=== PATIENT | female | born 1965 | race Caucasian/White ===

== ENCOUNTER 2022-09-30 11:55 | Outpatient (OUT) | payer OTHER, SELFPAY ==
[2022-09-30 12:33] LABS: Basophils Absolute Auto 0.1 10^3/uL (0.0-0.1); Basophils Percent Auto 0.5 % (0.2-2.0); Eosinophils Absolute Auto 0.1 10^3/uL (0.0-0.7); Eosinophils Percent Auto 1.3 % (0.9-7.0); Hematocrit 40.3 % (36.0-48.0); Hemoglobin 12.7 g/dL (12.0-16.0); Immature Granulocytes Abs Auto 0.04 10^3/uL (0.00-0.03); Immature Granulocytes Pct Auto 0.4 % (0.0-0.5); Lymphocytes Absolute Auto 2.3 10^3/uL (1.2-3.8); Lymphocytes Percent Auto 24.4 % (20.5-60.0); Mean Corpuscular HGB Conc 31.5 g/dL (29.9-35.2); Mean Corpuscular Hemoglobin 28.3 pg (26.7-34.0); Mean Corpuscular Volume 89.8 fL (81.0-99.0); Mean Platelet Volume 12.3 fL (9.5-13.5); Monocytes Absolute Auto 1.2 10^3/uL (0.3-0.8); Monocytes Percent Auto 12.7 % (1.7-12.0); Neutrophils Absolute Auto 5.6 10^3/uL (1.4-6.5); Neutrophils Percent Auto 60.7 % (43.0-75.0); Platelet Count 231 10^3/uL (150-450); Red Blood Count 4.49 10^6/uL (4.20-5.40); Red Cell Distribution Width 13.9 % (11.0-15.0); White Blood Count 9.3 10^3/uL (4.0-11.0)
[2022-09-30 12:47] LABS: Erythrocyte Sedimentation Rate 40 mm/hr (<=30)
[2022-09-30 13:15] LABS: Alanine Aminotransferase 15 U/L (14-59); Albumin Level 3.9 g/dL (3.4-5.0); Alkaline Phosphatase 80 U/L (46-116); Anion Gap 9.3; Aspartate Amino Transferase 18 U/L (15-37); BUN Creatinine Ratio 16.5; Bilirubin Total 0.4 mg/dL (0.2-1.0); Calcium 9.1 mg/dL (8.5-10.1); Carbon Dioxide 28.6 mmol/L (21.0-32.0); Chloride 102 mmol/L (98-107); Estimated GFR (African America >60 (>=60); Estimated GFR (Non-African Ame >60 (>=60); Globulin 4.1 g/dL; Glucose 93 mg/dL (74-106); Potassium 3.9 mmol/L (3.5-5.1); Sodium 136 mmol/L (136-145)
[2022-09-30 14:04] LABS: Bilirubin Urine NEGATIVE (NEGATIVE); Blood Urine NEGATIVE (NEGATIVE); Clarity Urine CLEAR (CLEAR); Color Urine LT. YELLOW (YELLOW); Glucose Urine UA NEGATIVE (NEGATIVE); Ketones Urine NEGATIVE (NEGATIVE); Leukocyte Esterase Urine NEGATIVE (NEGATIVE); Nitrite Urine NEGATIVE (NEGATIVE); Protein Urine NEGATIVE (NEG/TRACE); Specific Gravity Urine 1.025 (1.005-1.025); Urobilinogen Urine 0.2 EU/dL (0.2-1.0)
[2022-09-30 14:12] LABS: Bacteria Urine NONE SEEN #/HPF (NONE SEEN); Mucus Urine NONE SEEN (NONE SEEN); RBC Urine NONE SEEN #/HPF (0-2); Squamous Epithelial Cell Urine RARE #/LPF (NONE/RARE); WBC Urine NONE SEEN #/HPF (NONE SEEN)
[2022-10-01 04:07] LABS: Complement C3, Serum 120 mg/dL (82-167); Complement C4, Serum 19 mg/dL (12-38)
[2022-10-02 15:08] LABS: Complement, Total (CH50) >60 U/mL (>41)
== END 2022-09-30 11:56 | disposition home or self-care (01) ==
LOC: LAB 11:56
DX: M34.0 Progressive systemic sclerosis (principal); M81.0 Age-related osteoporosis without current pathological fracture; I73.00 Raynaud's syndrome without gangrene; Z79.899 Other long term (current) drug therapy
CPT/HCPCS: 36415; 80053; 81001; 85025; 85652

== ENCOUNTER 2022-12-05 12:49 | Outpatient (OUT) | payer OTHER, SELFPAY ==
--- NOTE | 2022-12-05 12:52 | MM_ITS ---
Patient: SIERRA ALBERTS Exam Date: 12/05/2022 : 1965 Gender:F Ordering : JAD Reed . Admission #: [id number] Family : Non-Staff Physician Order #: [id number] CLICK HERE TO VIEW EXAM RADIOLOGY REPORT PROCEDURE: MM TOMOSYNTHESIS SCREENING BI COMPARISON: MG MAMM SCREEN 3D PATRICA CAD, 11/13/2020. MG MAMM SCREEN 3D PATRICA CAD, 11/14/2021. INDICATIONS: Screening Calculator Name NCI Breast Cancer Risk Assessment Tool 5 Year Breast Cancer Risk 1.30% Lifetime Breast Cancer Risk 7.80% Personal Breast Cancer No Personal Ovarian Cancer No Treatments None Family Cancers Aunt-maternal with breast cancer at age ~60; Aunt-maternal with breast cancer at age ~60. LOCATION: [facility] BREAST COMPOSITION: Extremely dense, which lowers the sensitivity of mammography. FINDINGS: DIAGNOSTIC CATEGORY 1--NEGATIVE. NO CHANGE FROM COMPARISON ASSESSMENT. Scattered benign-appearing calcifications are present. Scattered benign-appearing nodules are present. RIGHT BREAST: No significant suspicious finding. LEFT BREAST: No significant suspicious finding. RECOMMENDATIONS: ROUTINE MAMMOGRAM AND CLINICAL EVALUATION IN 12 MONTHS. PLEASE NOTE: A NORMAL MAMMOGRAM DOES NOT EXCLUDE THE POSSIBILITY OF BREAST CANCER. A CLINICALLY SUSPICIOUS PALPABLE LUMP SHOULD BE BIOPSIED. Dictated by: Erik Chong MD on 12/05/2022 at 13:21 Approved by: Erik Chong MD on 12/05/2022 at 13:39
== END 2022-12-05 12:50 | disposition home or self-care (01) ==
LOC: MAMMO 12:49
PROVIDERS: Visit Provider Physician Assistant
DX: Z12.31 Encounter for screening mammogram for malignant neoplasm of breast (principal); Z80.3 Family history of malignant neoplasm of breast
CPT/HCPCS: 77063; 77067

== ENCOUNTER 2022-12-22 08:42 | Outpatient (OUT) | payer OTHER, SELFPAY ==
[2022-12-22 09:07] LABS: Basophils Absolute Auto 0.1 10^3/uL (0.0-0.1); Eosinophils Absolute Auto 0.2 10^3/uL (0.0-0.7); Eosinophils Percent Auto 2.1 % (0.9-7.0); Hematocrit 42.3 % (36.0-48.0); Hemoglobin 13.6 g/dL (12.0-16.0); Immature Granulocytes Abs Auto 0.02 10^3/uL (0.00-0.03); Immature Granulocytes Pct Auto 0.3 % (0.0-0.5); Lymphocytes Absolute Auto 2.5 10^3/uL (1.2-3.8); Lymphocytes Percent Auto 32.1 % (20.5-60.0); Mean Corpuscular HGB Conc 32.2 g/dL (29.9-35.2); Mean Corpuscular Hemoglobin 29.2 pg (26.7-34.0); Mean Corpuscular Volume 90.8 fL (81.0-99.0); Mean Platelet Volume 12.5 fL (9.5-13.5); Monocytes Absolute Auto 1.1 10^3/uL (0.3-0.8); Monocytes Percent Auto 14.2 % (1.7-12.0); Neutrophils Absolute Auto 3.9 10^3/uL (1.4-6.5); Neutrophils Percent Auto 50.3 % (43.0-75.0); Platelet Count 253 10^3/uL (150-450); Red Blood Count 4.66 10^6/uL (4.20-5.40); White Blood Count 7.7 10^3/uL (4.0-11.0)
[2022-12-22 10:03] LABS: Alanine Aminotransferase 17 U/L (14-59); Albumin Globulin Ratio 0.9; Albumin Level 3.8 g/dL (3.4-5.0); Alkaline Phosphatase 81 U/L (46-116); Anion Gap 12.4; Aspartate Amino Transferase 18 U/L (15-37); BUN Creatinine Ratio 16.1; Bilirubin Total 0.5 mg/dL (0.2-1.0); Calcium 8.7 mg/dL (8.5-10.1); Carbon Dioxide 26.6 mmol/L (21.0-32.0); Chloride 105 mmol/L (98-107); Chol HDL Ratio 2.7; Cholesterol 202 mg/dL (<=200); Estimated GFR (African America >60 (>=60); Estimated GFR (Non-African Ame >60 (>=60); Glucose 82 mg/dL (74-106); HDL Cholesterol 75 mg/dL (40-60); Sodium 140 mmol/L (136-145); Thyroid Stimulating Hormone 2.788 uIU/mL (0.358-3.740); Total Protein 7.8 g/dL (6.4-8.2); Triglycerides 51 mg/dL (<=150); VLDL CHOLESTEROL 10.2 mg/dL
== END 2022-12-22 08:43 | disposition home or self-care (01) ==
LOC: LAB 08:44
PROVIDERS: PCP Internal Medicine; Visit Provider Internal Medicine
DX: Z00.00 Encounter for general adult medical examination without abnormal findings (principal)
CPT/HCPCS: 36415; 80053; 80061; 84443; 85025

== ENCOUNTER 2022-12-29 20:35 | Outpatient (REF) | payer OTHER, SELFPAY ==
[2023-01-02 11:10] LABS: Age Gdln ACOG Testing Note (.); HPV Aptima Negative (Negative); IGP, Aptima HPV, rfx 16/18,45 Note (.)
== END 2022-12-29 20:36 | disposition home or self-care (01) ==
LOC: LAB 20:35
PROVIDERS: PCP Internal Medicine; Visit Provider Physician Assistant
DX: Z01.419 Encounter for gynecological examination (general) (routine) without abnormal findings (principal)
CPT/HCPCS: 87624; G0145

== ENCOUNTER 2023-01-19 10:43 | Outpatient (OUT) | payer OTHER, SELFPAY ==
--- NOTE | 2023-01-19 10:59 | XR_ITS ---
[address] [address] Patient Name: SIERRA ALBERTS MRN: [id number] date: 1965 Sex: F Assigned Patient Location: [facility] Current Patient Location: [facility] Accession/Order Number: [id number] Exam Date: 01/19/2023 11:10 Report Date: 01/19/2023 11:55 At the request of: SINA KEITH Procedure: XR DEXA axial skeleton EXAMINATION: XR DEXA axial skeleton HISTORY: Postmenopausal State Z78.0 COMPARISON: DEXA bone densitometry 11/29/2020 (femur), 10/30/2016 (spine) TECHNIQUE: Dual-energy X-ray absorptiometry (DXA) was performed. FINDINGS: SPINE ANALYSIS: Average bone mineral density is 0.859 g/cm2. T-score (standard deviation relative to young adult mean): -2.7 . +1.1% change since prior study. HIP ANALYSIS: Lowest bone mineral density is within the left femoral neck, 0.619 g/cm2. T-score (standard deviation relative to young adult mean): -3.0 . -2.6% change since prior study. XR/XR DEXA axial skeleton IMPRESSION: [employer] Organization Classification: Osteoporosis - High Fracture Risk Electronically authenticated by: AMY BRIAN Date: 01/19/2023 11:55
== END 2023-01-19 10:44 | disposition home or self-care (01) ==
LOC: RAD 10:43
PROVIDERS: PCP Internal Medicine; Visit Provider Physician Assistant
DX: M34.0 Progressive systemic sclerosis (principal); M81.0 Age-related osteoporosis without current pathological fracture; I73.00 Raynaud's syndrome without gangrene; Z79.899 Other long term (current) drug therapy; Z78.0 Asymptomatic menopausal state
CPT/HCPCS: 36415; 77080; 80053; 81001; 83735; 84100; 85025; 85652; 86160; 86162

== ENCOUNTER 2023-01-19 11:17 | Outpatient (OUT) | payer OTHER, SELFPAY ==
[2023-01-19 11:44] LABS: Basophils Absolute Auto 0.1 10^3/uL (0.0-0.1); Basophils Percent Auto 0.7 % (0.2-2.0); Eosinophils Absolute Auto 0.1 10^3/uL (0.0-0.7); Eosinophils Percent Auto 0.8 % (0.9-7.0); Hematocrit 41.9 % (36.0-48.0); Hemoglobin 13.4 g/dL (12.0-16.0); Immature Granulocytes Abs Auto 0.02 10^3/uL (0.00-0.03); Immature Granulocytes Pct Auto 0.2 % (0.0-0.5); Lymphocytes Absolute Auto 2.3 10^3/uL (1.2-3.8); Lymphocytes Percent Auto 27.4 % (20.5-60.0); Mean Corpuscular Hemoglobin 28.9 pg (26.7-34.0); Mean Corpuscular Volume 90.3 fL (81.0-99.0); Monocytes Absolute Auto 1.2 10^3/uL (0.3-0.8); Monocytes Percent Auto 14.1 % (1.7-12.0); Neutrophils Absolute Auto 4.7 10^3/uL (1.4-6.5); Neutrophils Percent Auto 56.8 % (43.0-75.0); Platelet Count 274 10^3/uL (150-450); Red Blood Count 4.64 10^6/uL (4.20-5.40); Red Cell Distribution Width 14.1 % (11.0-15.0); White Blood Count 8.3 10^3/uL (4.0-11.0)
[2023-01-19 11:48] LABS: Erythrocyte Sedimentation Rate 46 mm/hr (<=30)
[2023-01-19 12:01] LABS: Alanine Aminotransferase 22 U/L (14-59); Alkaline Phosphatase 81 U/L (46-116); Anion Gap 12.2; Aspartate Amino Transferase 20 U/L (15-37); BUN Creatinine Ratio 14.6; Bilirubin Total 0.4 mg/dL (0.2-1.0); Bilirubin Urine NEGATIVE (NEGATIVE); Blood Urine NEGATIVE (NEGATIVE); Calcium 9.2 mg/dL (8.5-10.1); Chloride 102 mmol/L (98-107); Clarity Urine CLEAR (CLEAR); Color Urine LT. YELLOW (YELLOW); Estimated GFR (African America >60 (>=60); Estimated GFR (Non-African Ame >60 (>=60); Globulin 4.2 g/dL; Glucose 78 mg/dL (74-106); Glucose Urine UA NEGATIVE (NEGATIVE); Ketones Urine NEGATIVE (NEGATIVE); Leukocyte Esterase Urine NEGATIVE (NEGATIVE); Nitrite Urine NEGATIVE (NEGATIVE); Phosphorus 3.7 mg/dL (2.6-4.7); Potassium 4.2 mmol/L (3.5-5.1); Protein Urine NEGATIVE (NEG/TRACE); Sodium 139 mmol/L (136-145); Specific Gravity Urine 1.025 (1.005-1.025); Total Protein 8.2 g/dL (6.4-8.2); Urobilinogen Urine 0.2 EU/dL (0.2-1.0)
[2023-01-19 12:13] LABS: Bacteria Urine NONE SEEN #/HPF (NONE SEEN); Mucus Urine NONE SEEN (NONE SEEN); RBC Urine NONE SEEN #/HPF (0-2); Squamous Epithelial Cell Urine FEW #/LPF (NONE/RARE); WBC Urine NONE SEEN #/HPF (NONE SEEN)
[2023-01-20 04:07] LABS: Complement C3, Serum 122 mg/dL (82-167); Complement C4, Serum 20 mg/dL (12-38)
[2023-01-20 14:09] LABS: Complement, Total (CH50) >60 U/mL (>41)
== END 2023-01-19 11:18 | disposition home or self-care (01) ==
PROVIDERS: PCP Internal Medicine; Visit Provider Registered Nurse
DX: M34.0 Progressive systemic sclerosis (principal); M81.0 Age-related osteoporosis without current pathological fracture; I73.00 Raynaud's syndrome without gangrene; Z79.899 Other long term (current) drug therapy
CPT/HCPCS: 36415; 80053; 81001; 83735; 84100; 85025; 85652; 86160; 86162

== ENCOUNTER 2023-04-27 11:10 | Outpatient (OUT) | payer OTHER, SELFPAY ==
[2023-04-27 11:48] LABS: Alanine Aminotransferase 21 U/L (14-59); Albumin Globulin Ratio 0.9; Albumin Level 3.7 g/dL (3.4-5.0); Alkaline Phosphatase 86 U/L (46-116); Anion Gap 10.4; Aspartate Amino Transferase 20 U/L (15-37); BUN Creatinine Ratio 15.3; Bilirubin Total 0.4 mg/dL (0.2-1.0); Calcium 8.7 mg/dL (8.5-10.1); Carbon Dioxide 29.9 mmol/L (21.0-32.0); Chloride 103 mmol/L (98-107); Estimated GFR (African America >60 (>=60); Estimated GFR (Non-African Ame 58 (>=60); Globulin 4.2 g/dL; Glucose 88 mg/dL (74-106); Phosphorus 3.5 mg/dL (2.6-4.7); Potassium 4.3 mmol/L (3.5-5.1); Sodium 139 mmol/L (136-145); Total Protein 7.9 g/dL (6.4-8.2)
[2023-04-27 11:51] LABS: Basophils Absolute Auto 0.1 10^3/uL (0.0-0.1); Basophils Percent Auto 0.7 % (0.2-2.0); Eosinophils Absolute Auto 0.1 10^3/uL (0.0-0.7); Eosinophils Percent Auto 0.6 % (0.9-7.0); Hematocrit 40.7 % (36.0-48.0); Hemoglobin 12.8 g/dL (12.0-16.0); Immature Granulocytes Abs Auto 0.03 10^3/uL (0.00-0.03); Immature Granulocytes Pct Auto 0.4 % (0.0-0.5); Lymphocytes Absolute Auto 1.6 10^3/uL (1.2-3.8); Lymphocytes Percent Auto 18.7 % (20.5-60.0); Mean Corpuscular HGB Conc 31.4 g/dL (29.9-35.2); Mean Corpuscular Hemoglobin 28.8 pg (26.7-34.0); Mean Corpuscular Volume 91.5 fL (81.0-99.0); Mean Platelet Volume 12.4 fL (9.5-13.5); Monocytes Absolute Auto 0.9 10^3/uL (0.3-0.8); Monocytes Percent Auto 10.5 % (1.7-12.0); Neutrophils Absolute Auto 5.8 10^3/uL (1.4-6.5); Neutrophils Percent Auto 69.1 % (43.0-75.0); Platelet Count 249 10^3/uL (150-450); Red Blood Count 4.45 10^6/uL (4.20-5.40); White Blood Count 8.4 10^3/uL (4.0-11.0)
[2023-04-27 12:38] LABS: Bilirubin Urine NEGATIVE (NEGATIVE); Blood Urine NEGATIVE (NEGATIVE); Clarity Urine CLEAR (CLEAR); Color Urine YELLOW (YELLOW); Erythrocyte Sedimentation Rate 45 mm/hr (<=30); Glucose Urine UA NEGATIVE (NEGATIVE); Ketones Urine NEGATIVE (NEGATIVE); Leukocyte Esterase Urine NEGATIVE (NEGATIVE); Nitrite Urine NEGATIVE (NEGATIVE); Protein Urine NEGATIVE (NEG/TRACE); Specific Gravity Urine 1.025 (1.005-1.025); Urobilinogen Urine 0.2 EU/dL (0.2-1.0); pH Urine 5.5 (5.0-9.0)
[2023-04-27 12:56] LABS: Bacteria Urine NONE SEEN #/HPF (NONE SEEN); Cast Seen? NONE SEEN #/LPF (NONE SEEN); Crystals Seen? None Seen #/HPF (None Seen); Mucus Urine NONE SEEN (NONE SEEN); RBC Urine NONE SEEN #/HPF (0-2); Squamous Epithelial Cell Urine RARE #/LPF (NONE/RARE); WBC Urine 0-2 #/HPF (NONE SEEN)
[2023-04-28 05:08] LABS: Complement C3, Serum 113 mg/dL (82-167); Complement C4, Serum 19 mg/dL (12-38)
[2023-04-28 15:08] LABS: Complement, Total (CH50) >60 U/mL (>41)
== END 2023-04-27 11:11 | disposition home or self-care (01) ==
LOC: LAB 11:10
PROVIDERS: Visit Provider Registered Nurse
DX: M34.0 Progressive systemic sclerosis (principal); M81.0 Age-related osteoporosis without current pathological fracture; I73.00 Raynaud's syndrome without gangrene; Z79.899 Other long term (current) drug therapy
CPT/HCPCS: 36415; 80053; 81001; 83735; 84100; 85025; 85652; 86160; 86162

== ENCOUNTER 2023-08-04 10:34 | Outpatient (OUT) | payer OTHER, SELFPAY ==
[2023-08-04 11:03] LABS: Basophils Absolute Auto 0.1 10^3/uL (0.0-0.1); Basophils Percent Auto 0.9 % (0.2-2.0); Eosinophils Absolute Auto 0.1 10^3/uL (0.0-0.7); Eosinophils Percent Auto 1.4 % (0.9-7.0); Hematocrit 41.9 % (36.0-48.0); Hemoglobin 13.4 g/dL (12.0-16.0); Immature Granulocytes Abs Auto 0.02 10^3/uL (0.00-0.03); Immature Granulocytes Pct Auto 0.2 % (0.0-0.5); Lymphocytes Absolute Auto 1.8 10^3/uL (1.2-3.8); Lymphocytes Percent Auto 22.6 % (20.5-60.0); Mean Corpuscular Hemoglobin 28.9 pg (26.7-34.0); Mean Corpuscular Volume 90.3 fL (81.0-99.0); Mean Platelet Volume 12.2 fL (9.5-13.5); Monocytes Absolute Auto 1.3 10^3/uL (0.3-0.8); Monocytes Percent Auto 16.2 % (1.7-12.0); Neutrophils Absolute Auto 4.8 10^3/uL (1.4-6.5); Neutrophils Percent Auto 58.7 % (43.0-75.0); Platelet Count 248 10^3/uL (150-450); Red Blood Count 4.64 10^6/uL (4.20-5.40); White Blood Count 8.1 10^3/uL (4.0-11.0)
[2023-08-04 11:30] LABS: Erythrocyte Sedimentation Rate 81 mm/hr (<=30)
[2023-08-04 11:39] LABS: Bilirubin Urine NEGATIVE (NEGATIVE); Blood Urine NEGATIVE (NEGATIVE); Clarity Urine CLEAR (CLEAR); Color Urine LT. YELLOW (YELLOW); Glucose Urine UA NEGATIVE (NEGATIVE); Ketones Urine NEGATIVE (NEGATIVE); Leukocyte Esterase Urine NEGATIVE (NEGATIVE); Nitrite Urine NEGATIVE (NEGATIVE); Protein Urine NEGATIVE (NEG/TRACE); Specific Gravity Urine 1.025 (1.005-1.025); Urobilinogen Urine 0.2 EU/dL (0.2-1.0)
[2023-08-04 12:03] LABS: Bacteria Urine NONE SEEN #/HPF (NONE SEEN); Mucus Urine NONE SEEN (NONE SEEN); RBC Urine NONE SEEN #/HPF (0-2); Squamous Epithelial Cell Urine RARE #/LPF (NONE/RARE); WBC Urine NONE SEEN #/HPF (NONE SEEN)
[2023-08-04 13:19] LABS: Alanine Aminotransferase 15 U/L (14-59); Albumin Globulin Ratio 0.9; Albumin Level 3.8 g/dL (3.4-5.0); Alkaline Phosphatase 65 U/L (46-116); Anion Gap 14.1; Aspartate Amino Transferase 17 U/L (15-37); BUN Creatinine Ratio 24.1; Bilirubin Total 0.3 mg/dL (0.2-1.0); Calcium 9.1 mg/dL (8.5-10.1); Carbon Dioxide 26.3 mmol/L (21.0-32.0); Chloride 104 mmol/L (98-107); Estimated GFR (African America >60 (>=60); Estimated GFR (Non-African Ame >60 (>=60); Glucose 99 mg/dL (74-106); Phosphorus 3.8 mg/dL (2.6-4.7); Potassium 4.4 mmol/L (3.5-5.1); Sodium 140 mmol/L (136-145); Total Protein 7.8 g/dL (6.4-8.2)
[2023-08-05 05:08] LABS: Complement C3, Serum 125 mg/dL (82-167); Complement C4, Serum 19 mg/dL (12-38)
[2023-08-05 14:15] LABS: Complement, Total (CH50) >60 U/mL (>41)
== END 2023-08-04 10:35 | disposition home or self-care (01) ==
LOC: LAB 10:34
PROVIDERS: Visit Provider Registered Nurse
DX: M34.0 Progressive systemic sclerosis (principal); M81.0 Age-related osteoporosis without current pathological fracture; I73.00 Raynaud's syndrome without gangrene; Z79.899 Other long term (current) drug therapy
CPT/HCPCS: 36415; 80053; 81001; 83735; 84100; 85025; 85652; 86160; 86162

== ENCOUNTER 2023-11-17 11:07 | Outpatient (OUT) | payer OTHER, SELFPAY ==
--- OUTSIDE RECORDS SUMMARY | 2023-11-17 11:11 | XMS_ITS | CCD ---
Author Organization [facility] Care Team Providers Care Ampoule Examiner Name Role Phone DO Rich Garcia Primary Care Provider [phone] THERESE Ornelas Attending Provider Patricia Ornelas Attending Unavailable Patricia Ornelas Admitting Unavailable Jose, Rich Primary Care Unavailable Rich Garcia Unavailable GRACIE, DR PRINCE Admitting Unavailable BOWMAN, DR PRINCE Attending Unavailable BALL, DR BISHOP Primary Care Unavailable BOWMAN, DR PRINCE Consulting Unavailable MISC, DR DANIELS Admitting Unavailable MISC, DR DANIELS Attending Unavailable BALL, DR BISHOP Primary Care Unavailable MISC, DR DANIELS Consulting Unavailable BALL, DR BISHOP Admitting Unavailable BALL, DR BISHOP Attending Unavailable BALL, DR BISHOP Primary Care Unavailable BALL, DR BISHOP Consulting Unavailable KARASIK ., DR WONG Admitting Unavailabl e KARASIK ., DR WONG Attending Unavailabl e BALL, DR BISHOP Primary Care Unavailable KARASIK ., DR WONG Consulting Unavailabl e KARASIK ., DR WONG Admitting Unavailabl e KARASIK ., DR WONG Attending Unavailabl e BALL, DR BISHOP Primary Care Unavailable KARASIK ., DR WONG Consulting Unavailabl e WEST, DR GUANACO Dacosta Consulting Unavailable MISC, DR DANIELS Admitting Unavailable MISC, DR DANIELS Attending Unavailable JOSE, DR BISHOP Primary Care Unavailable MISC, DR DANIELS Consulting Unavailable MISC, DR DANIELS Admitting Unavailable MISC, DR DANIELS Attending Unavailable BALL, DR BISHOP Primary Care Unavailable MISC, DR DANIELS Consulting Unavailable Allergies Allergy Classification Reported Allergen(s) Allergy Type Date of Onset Reaction(s) Facility (1 source) Penicillins Drug allergy (disorder) 01-29-20 [facility] Repository (4 sources) Penicillin V Drug Allergy Unknown [facility] Other (1 source) Penicillins Drug allergy (disorder) 03-02-19 03 [facility] Repository (1 source) Allergies Reconciled Propensity to adverse reactions Unknown [facility] Other (2 sources) Substance with penicillin structure and antibacterial mechanism of action (substance) Drug allergy Comment:Rash [facility] Other (1 source) patient allergy list reviewed by nurse or physicia Propensity to adverse reactions 12-11-19 Comment:Done [facility] Other Medications Current Medications Medication Drug Class(es) Dates Sig (Normalized) Sig (Original) calcium carbonate 600 mg oral capsule (4 sources) take 1 tablet by mouth twice daily at mealtime Calcium Carbonate 600 MG 1 tablet with food Orally Twice a day Active calcium carbonate 1500 mg / cholecalciferol 200 unt oral tablet (1 source) Vitamin D Start: 01-28-2021 take 1 tablet by mouth twice daily Calcium Carbonate-Vitamin D3 Active 1 TAB PO Twice daily January 28, 2021 1:00am folic acid 1 mg oral tablet (5 sources) Start: 01-28-2021 take 1 mg by mouth once daily Folic Acid Active 1 MG PO Daily January 28, 2021 1:00am 3 ml ibandronic acid 1 mg/ml injection (5 sources) Bisphosphonate Start: 01-28-2021 take 3 mg intravenously every three months Ibandronate Active 3 MG IV EVERY 3 MONTHS January 28, 2021 1:00am Ibandronate Sodi um 3 MG/3ML 3 mL Intravenous Active methotrexate 2.5 mg oral tablet (5 sources) Folate Analog Metabolic Inhibitor Start: 01-28-2021 take 2.5 mg by mouth once daily Methotrexate Sodium Active 2.5 MG PO Daily January 28, 2021 1:00am 24 hr NIFEdipine 30 mg extended release oral tablet (5 sources) Dihydropyridine Calcium Channel Vijaya Start: 01-28-2021 take 30 mg by mouth once daily Nifedipine Active 30 MG PO Daily January 28, 2021 1:00am take 1 tablet by giovany th every twenty-four hours Procardia XL 30 MG 1 tablet Orally Once a day Active Completed/Discontinued Medications Medication Drug Class(es) Dates Sig (Normalized) Sig (Original) azithromycin 250 mg oral tablet (4 sources) Macrolide Antimicrobial Start: 04-11-2022 Azithromycin 250 MG as directed Orally daily for 5 days Apr, Not-Taking benzonatate 200 mg oral capsule (4 sources) Non-narcotic Antitussive Start: 03-11-2022 take 1 capsule by mouth every eight hours Benzonatate 200 MG 1 capsule Orally Three times a day for 10 Mar, Not-Taking doxycycline hyclate 100 mg oral capsule (4 sources) Tetracycline-class Drug Start: 03-11-2022 take 1 capsule by mouth twice daily Doxycycline Hyclate 100 MG 1 capsule Orally twice daily for 7 days Mar, Not-Taking omeprazole 20 mg delayed release oral capsule (4 sources) Proton Pump Inhibitor Omeprazole 20 MG (Prior Auth: Rx Ref#:[id number]) Oral for 90 Not-Taking Problems Active Problems Problem Classification Problem Date Documented Da te Episodic/Chronic Acute bronchitis (1 source) Acute bronchitis due to other specified organisms Episodic Esophageal disorders (5 sources) Gastroesophageal reflux disease; Translations: [Gastro-esophageal reflux disease without esophagitis] Chronic Immunity disorders (6 sources) Immunosuppression; Translations: [Immunodeficiency, unspecified] Chronic Immunizations and screening for infectious disease (3 sources) Encounter for screening for human papillomavirus (HPV); Translations: [Vaccination given] Onset: 2 Episodic Miscellaneous mental health disorders (4 sources) Globus sensation; Translations: [Other somatoform disorders] Chronic Osteoporosis (6 sources) Primary osteoporosis; Translations: [Age-related osteoporosis without current pathological fracture] Onset: 3 Chronic Other aftercare (1 source) Other detention (current) drug therapy; Translations: [OTH CLAIM PROFESSIONAL CURRENT DRUG THERAPY] Onset: 3 Episodic Other circulatory disease (6 sources) Raynaud's disease; Translations: [Raynaud's syndrome without gangrene] Chronic Other circulatory disease (2 sources) Raynaud's syndrome without gangrene; Translations: [RAYNAUDS SYNDROME WITHOUT GANGRENE] Onset: 3 Chronic Other gastrointestinal disorders (4 sources) Pharyngeal dysphagia; Translations: [Dysphagia, pharyngeal phase] Episodic Other gastrointestinal disorders (4 sources) Dysphagia; Translations: [Dysphagia, unspecified] Episodic Other lower respiratory disease (1 source) Pulmonary fibrosis, unspecified; Translations: [Pulmonary fibrosis, unspecified] Onset: 2 Chronic Other screening for suspected conditions (not mental disorders or infectious disease) (10 sources) Patient encounter status; Translations: [Encounter for screening for malignant neoplasm of colon] Onset: 2 01-28-2021 Episodic Other upper respiratory infections (3 sources) Acute maxillary sinusitis, unspecified; Translations: [Acute maxillary sinusitis] Episodic Systemic lupus erythematosus and connective tissue disorders (14 sources) Systemic sclerosis, unspecified; Translations: [Scleroderma] Onset: 3 Chronic Past or Other Problems Problem Classification Problem Date Documented Date Episodic/Chronic Abdominal pain (1 source) Pelvic and perineal pain; Translations: [Pelvic and perineal pain] Resolved: 09-16-2016 Episodic Menopausal disorders (2 sources) Atrophic vaginitis; Translations: [Postmenopausal atrophic vaginitis] Resolved: 12-12-2021 Chronic Other aftercare (1 source) History and physical examination, follow-up; Translations: [Encounter for follow-up examination after completed treatment for conditions other than malignant neoplasm] Resolved: 11-04-2016 Episodic Other female genital disorders (1 source) Noninflammatory disorder of the vagina; Translations: [Other specified noninflammatory disorders of vagina] Resolved: 11-15-2019 Episodic Other nutritional; endocrine; and metabolic disorders (1 source) Underweight; Translations: [Underweight] Resolved: 11-15-2019 Episodic Prolapse of female genital organs (1 source) Uterovaginal prolapse; Translations: [Uterovaginal prolapse, unspecified] Resolved: 09-16-2016 Chronic Residual codes; unclassified (1 source) Family history of malignant neoplasm of breast; Translations: [FAMILY HX MALIG NEOPLASM OF BREAST] Onset: 11-17-2021 Episodic Residual codes; unclassified (1 source) Postmenopausal state; Translations: [Asymptomatic menopausal state] Resolved: 12-12-2021 Episodic Residual codes; unclassified (1 source) Requires influenza virus vaccination; Translations: [Need for prophylactic vaccination and inoculation, Influenza] Onset: 12-15-2017 Episodic Spondylosis; intervertebral disc disorders; other back problems (1 source) Low back pain; Translations: [Lumbago] Onset: 05-23-2014 Episodic Results Test Name Value Interpretation Reference Range Facility C3 and C4 COMPLEMENTon 05-13 Complement C3, Serum 99 mg/dL Normal 82-167 [facility] Comment on above: Performed By: #### V ITAD #### [facility] [address] [place] [address] Dr. Garfield Nelson Complement C4, Serum 14 mg/dL Normal 12-38 [facility] Comment on above: Performed By: #### V ITAD #### [facility] [address] [place] [address] Dr. Garfield Nelson COMPLEMENT TOTAL (CH50)on Complement, Total (CH50) >60 Normal >41 [facility] Comment on above: Result Comment: Age Male Female 1 - 30 days Not Estab. Not Estab. 31 days - 6 months >32 >20 7 months - 17 years >39 >39 >17 years >41 >41 NOTE: The adult ( >17 years ) reference interval range is used to flag abnormals on this report. If the patient is 17 years old or younger, use the table above to determine out of range values. Performed By: #### C H50T #### [facility] [address] [place] [address] Dr. Garfield Nelson CBC AUTO DIFFon 05-12-2022 BASO # 0.0 103/ul Normal 0.0-0.1 [facility] Comment on above: Performed By: #### C BC #### [facility] [address] [place] [address] Dr. Garfield Nelson Basophils/100 WBC (Bld) 0.4 % Normal 0.2-2.0 [facility] Comment on above: Performed By: #### C BC #### [facility] [address] [place] [address] Dr. Garfield Nelson EO # 0.1 103/ul Normal 0.0-0.7 [facility] Comment on above: Performed By: #### C BC #### [facility] [address] [place] [address] Dr. Garfield Nelson Eosinophils/100 WBC (Bld) 1.1 % Normal 0.9-7.0 [facility] Comment on above: Performed By: #### C BC #### [facility] [address] [place] [address] Dr. Garfield Nelson Erythrocyte distribution width (RBC) [Ratio] 14.9 % Normal 11.0-15.0 [facility] Comment on above: Performed By: #### C BC #### [facility] [address] [place] [address] Dr. Garfield Nelson Hematocrit (Bld) [Volume fraction] 38.3 % Normal 36.0-48.0 [facility] Comment on above: Performed By: #### C BC #### [facility] [address] [place] [address] Dr. Garfield Nelson Hemoglobin (Bld) [Mass/Vol] 12.2 g/dL Normal 12.0-16.0 [facility] Comment on above: Performed By: #### C BC #### [facility] [address] [place] [address] Dr. Garfield Nelson IG # 0.03 10e3/ul Normal 0.00-0.03 [facility] Comment on above: Performed By: #### C BC #### [facility] [address] [place] [address] Dr. Garfield Nelson IG % 0.3 % Normal 0.0-0.5 [facility] Comment on above: Performed By: #### C BC #### [facility] [address] [place] [address] Dr. Garfield Nelson LYMPH # 2.1 103/ul Normal 1.2-3.8 [facility] Comment on above: Performed By: #### C BC #### [facility] [address] [place] [address] Dr. Garfield Nelson Lymphocytes/100 WBC (Bld) 22.6 % Normal 20.5-60.0 [facility] Comment on above: Performed By: #### C BC #### [facility] [address] [place] [address] Dr. Garfield Nelson MANUAL DIFF REQ NO Normal [facility] Comment on above: Performed By: #### C BC #### [facility] [address] [place] [address] Dr. Garfield Nelson MCH (RBC) [Entitic mass] 28.5 pg Normal 26.7-34.0 [facility] Comment on above: Performed By: #### C BC #### [facility] [address] [address] [address] Garfield Nelson MCHC (RBC) [Mass/Vol] 31.9 g/dL Normal 29.9-35.2 [facility] Comment on above: Performed By: #### C BC #### [facility] [address] [place] [address] Dr. Garfield Nelson MCV (RBC) [Entitic vol] 89.5 fL Normal 81.0-99.0 [facility] Comment on above: Performed By: #### C BC #### [facility] [address] [place] [address] Dr. Garfield Nelson MONO # 1.0 103/ul Critically high 0.3-0.8 [facility] Comment on above: Performed By: #### C BC #### [facility] [address] [place] [address] Dr. Garfield Nelson Monocytes/100 WBC (Bld) 10.5 % Normal 1.7-12.0 [facility] Comment on above: Performed By: #### C BC #### [facility] [address] [place] [address] Dr. Garfield Nelson NEUT # 6.1 103/ul Normal 1.4-6.5 [facility] Comment on above: Performed By: #### C BC #### [facility] [address] [place] [address] Dr. Garfield Nelson Neutrophils/100 WBC (Bld) 65.1 % Normal 43.0-75.0 [facility] Comment on above: Performed By: #### C BC #### [facility] [address] [place] [address] Dr. Garfield Nelson Platelet mean volume (Bld) [Entitic vol] 12.1 fL Normal 9.5-13.5 [facility] Comment on above: Performed By: #### C BC #### [facility] [address] [place] [address] Dr. Garfield Nelson PLT 276 103/ul Normal 150-450 [facility] Comment on above: Performed By: #### C BC #### [facility] [address] [place] [address] Dr. Garfield Nelson RBC 4.28 106/ul Normal 4.20-5.40 [facility] Comment on above: Performed By: #### C BC #### [facility] [address] [place] [address] Dr. Garfield Nelson WBC 9.4 103/ul Normal 4.0-11.0 [facility] Comment on above: Performed By: #### C BC #### [facility] [address] [place] [address] Dr. Garfield Nelson MAGNESIUMon 05-12-2022 Magnesium [Mass/Vol] 2.0 mg/dL Normal 1.8-2.4 [facility] Comment on above: Performed By: #### V ITAD #### [facility] [address] [place] [address] Dr. Garfield Nelson PHOSPHORUSon 05-12-2022 Phosphate [Mass/Vol] 3.0 mg/dL Normal 2.6-4.7 [facility] Comment on above: Performed By: #### V ITAD #### [facility] [address] [place] [address] Dr. Garfield Nelson PROF 14(COMP METB)on 023 Albumin [Mass/Vol] 3.8 g/dL Normal 3.4-5.0 [facility] Comment on above: Performed By: #### V ITAD #### [facility] [address] [place] [address] Dr. Garfield Nelson Albumin/Globulin [Mass ratio] 1.0 {ratio} Normal [facility] Comment on above: Performed By: #### V ITAD #### [facility] [address] [place] [address] Dr. Garfield Nelson ALP [Catalytic activity/Vol] 93 U/L Normal 46-116 [facility] Comment on above: Performed By: #### V ITAD #### [facility] [address] [address] [address] Garfield Nelson ALT [Catalytic activity/Vol] 19 U/L Normal 14-59 [facility] Comment on above: Performed By: #### V ITAD #### [facility] [address] [address] [address] Garfield Nelson Anion gap [Moles/Vol] 9.5 mmol/L Normal [facility] Comment on above: Performed By: #### V ITAD #### [facility] [address] [address] [address] Garfield Nelson AST [Catalytic activity/Vol] 22 U/L Normal 15-37 [facility] Comment on above: Performed By: #### V ITAD #### [facility] [address] [place] [address] Dr. Garfield Nelson Bilirubin [Mass/Vol] 0.3 mg/dL Normal 0.2-1.0 [facility] Comment on above: Performed By: #### V ITAD #### [facility] [address] [place] [address] Dr. Garfield Nelson Calcium [Mass/Vol] 8.7 mg/dL Normal 8.5-10.[address] [facility] Comment on above: Performed By: #### V ITAD #### [facility] [address] [place] [address] Dr. Garfield Nelson Chloride [Moles/Vol] 104 mmol/L Normal 98-107 [facility] Comment on above: Performed By: #### V ITAD #### [facility] [address] [place] [address] Dr. Garfield Nelson CO2 [Moles/Vol] 29.0 mmol/L Normal 21.0-32.0 [facility] Comment on above: Performed By: #### V ITAD #### [facility] [address] [place] [address] Dr. Garfield Nelson Creatinine [Mass/Vol] 0.65 mg/dL Normal 0.55-1.02 [facility] Comment on above: Performed By: #### V ITAD #### [facility] [address] [address] [address] Garfield Nelson EGFR-AF PERUVIAN >60 Normal >=60 [facility] Comment on above: Performed By: #### V ITAD #### [facility] [address] [address] [address] Garfield Nelson EGFR-NON AF PERUVIAN >60 Normal >=60 [facility] Comment on above: Performed By: #### V ITAD #### [facility] [address] [address] [address] Garfield Nelson Globulin (S) [Mass/Vol] 3.8 g/dL Normal [facility] Comment on above: Performed By: #### V ITAD #### [facility] [address] [place] [address] Dr. Garfield Nelson Glucose [Mass/Vol] 87 mg/dL Normal 74-[address] [facility] Comment on above: Performed By: #### V ITAD #### [facility] [address] [place] [address] Dr. Garfield Nelson Potassium [Moles/Vol] 3.5 mmol/L Normal 3.5-5.1 [facility] Comment on above: Performed By: #### V ITAD #### [facility] [address] [place] [address] Dr. Garfield Nelson Protein [Mass/Vol] 7.6 g/dL Normal 6.4-8.2 [facility] Comment on above: Performed By: #### V ITAD #### [facility] [address] [address] [address] Garfield Nelson Sodium [Moles/Vol] 139 mmol/L Normal 136-145 [facility] Comment on above: Performed By: #### V ITAD #### [facility] [address] [place] [address] Dr. Garfield Nelson Urea nitrogen [Mass/Vol] 15.0 mg/dL Normal 7.0-18.0 [facility] Comment on above: Performed By: #### V ITAD #### [facility] [address] [place] [address] Dr. Garfield Nelson Urea nitrogen/Creatinine [Mass ratio] 23.1 mg/mg Normal [facility] Comment on above: Performed By: #### V ITAD #### [facility] [address] [place] [address] Dr. Garfield Nelson SED RATE WESTERGREN 2022 SED RATE 39 mm/hr Critically high <=30 [facility] Comment on above: Performed By: #### M G, DAVIDS, CMP #### [facility] [address] [place] [address] Dr. Garfield Nelson UA RANDOM W/MICROSCOPICon BACTERIA NONE SEEN Normal NONE SEEN [facility] Comment on above: Performed By: #### C SUITE #### [facility] [address] [place] [address] Dr. Garfield Nelson Bilirubin Ql (U) Negative Normal NEGATIVE [facility] Comment on above: Performed By: #### C SUITE #### [facility] [address] [place] [address] Dr. Garfield Nelson CAST NONE SEEN Normal NONE SEEN [facility] Comment on above: Performed By: #### C SUITE #### [facility] [address] [place] [address] Dr. Garfield Nelson Clarity (U) CLEAR Normal CLEAR [facility] Comment on above: Performed By: #### C SUITE #### [facility] [address] [place] [address] Dr. Garfield Nelson Color (U) LT. YELLOW Normal YELLOW [facility] Comment on above: Performed By: #### C SUITE #### [facility] [address] [place] [address] Dr. Garfield Nelson Crystals LM Nom (Urine sed) NONE SEEN Normal NONE SEEN [facility] Comment on above: Performed By: #### C SUITE #### [facility] [address] [place] [address] Dr. Garfield Nelson Epithelial cells LM Ql (Urine sed) RARE Normal NONE SEEN /RARE [facility] Comment on above: Performed By: #### C SUITE #### [facility] [address] [place] [address] Dr. Garfield Nelson Glucose Ql (U) Negative Normal NEGATIVE [facility] Comment on above: Performed By: #### C SUITE #### [facility] [address] [place] [address] Dr. Garfield Nelson Hemoglobin Ql (U) Negative Normal NEGATIVE [facility] Comment on above: Performed By: #### C SUITE #### [facility] [address] [place] [address] Dr. Garfield Nelson Ketones Ql (U) Negative Normal NEGATIVE [facility] Comment on above: Performed By: #### C SUITE #### [facility] [address] [place] [address] Dr. Garfield Nelson LEUKOCYTES Negative Normal NEGATIVE [facility] Comment on above: Performed By: #### C SUITE #### [facility] [address] [place] [address] Dr. Garfield Nelson MUCOUS NONE SEEN Normal NONE SEEN [facility] Comment on above: Performed By: #### C SUITE #### [facility] [address] [place] [address] Dr. Garfield Nelson Nitrite Ql (U) Negative Normal NEGATIVE [facility] Comment on above: Performed By: #### C SUITE #### [facility] [address] [place] [address] Dr. Garfield Nelson pH (U) 7.0 [pH] Normal 5-9 [facility] Comment on above: Performed By: #### C SUITE #### [facility] [address] [place] [address] Dr. Garfield Nelson RBC NONE SEEN Abnormal 0-2 [facility] Comment on above: Performed By: #### C SUITE #### [facility] [address] [place] [address] Dr. Garfield Nelson SPEC GRAVITY <=1.005 Abnormal 1.005-<=1.025 [facility] Comment on above: Performed By: #### C SUITE #### [facility] [address] [place] [address] Dr. Garfield Nelson UA PROTEIN Negative Normal NEGATIVE/ TRACE [facility] Comment on above: Performed By: #### C SUITE #### [facility] [address] [place] [address] Dr. Garfield Nelson Urobilinogen Qn (U) 0.2 {Marquise'U}/dL Normal 0.2 - 1. 0 [facility] Comment on above: Performed By: #### C SUITE #### [facility] [address] [place] [address] Dr. Garfield Nelson WBC NONE SEEN Normal NONE SEEN [facility] Comment on above: Performed By: #### C SUITE #### [facility] [address] [place] [address] Dr. Garfield Nelson C3 and C4 COMPLEMENTon 02-12 Complement C3, Serum 117 mg/dL Normal 82-167 [facility] Comment on above: Performed By: #### V ITAD #### [facility] [address] [place] [address] Dr. Garfield Nelson Complement C4, Serum 20 mg/dL Normal 12-38 [facility] Comment on above: Performed By: #### V ITAD #### [facility] [address] [place] [address] Dr. Garfield Nelson COMPLEMENT TOTAL (CH50)on Complement, Total (CH50) >60 Normal >41 [facility] Comment on above: Result Comment: Age Male Female 1 - 30 days Not Estab. Not Estab. 31 days - 6 months >32 >20 7 months - 17 years >39 >39 >17 years >41 >41 NOTE: The adult ( >17 years ) reference interval range is used to flag abnormals on this report. If the patient is 17 years old or younger, use the table above to determine out of range values. Performed By: #### C H50T #### [facility] [address] [place] [address] Dr. Garfield Nelson CBC AUTO DIFFon 02-11-2022 BASO # 0.1 103/ul Normal 0.0-0.1 [facility] Comment on above: Performed By: #### V ITAD #### [facility] [address] [place] [address] Dr. Garfield Nelson Basophils/100 WBC (Bld) 0.6 % Normal 0.2-2.0 [facility] Comment on above: Performed By: #### V ITAD #### [facility] [address] [place] [address] Dr. Garfield Nelson EO # 0.1 103/ul Normal 0.0-0.7 [facility] Comment on above: Performed By: #### V ITAD #### [facility] [address] [place] [address] Dr. Garfield Nelson Eosinophils/100 WBC (Bld) 1.4 % Normal 0.9-7.0 [facility] Comment on above: Performed By: #### V ITAD #### [facility] [address] [place] [address] Dr. Garfield Nelson Erythrocyte distribution width (RBC) [Ratio] 14.2 % Normal 11.0-15.0 [facility] Comment on above: Performed By: #### V ITAD #### [facility] [address] [place] [address] Dr. Garfield Nelson Hematocrit (Bld) [Volume fraction] 39.1 % Normal 36.0-48.0 [facility] Comment on above: Performed By: #### V ITAD #### [facility] [address] [place] [address] Dr. Garfield Nelson Hemoglobin (Bld) [Mass/Vol] 12.7 g/dL Normal 12.0-16.0 [facility] Comment on above: Performed By: #### V ITAD #### [facility] [address] [place] [address] Dr. Garfield Nelson IG # 0.02 10e3/ul Normal 0.00-0.03 [facility] Comment on above: Performed By: #### V ITAD #### [facility] [address] [place] [address] Dr. Garfield Nelson IG % 0.2 % Normal 0.0-0.5 [facility] Comment on above: Performed By: #### V ITAD #### [facility] [address] [place] [address] Dr. Garfield Nelson LYMPH # 2.0 103/ul Normal 1.2-3.8 [facility] Comment on above: Performed By: #### V ITAD #### [facility] [address] [place] [address] Dr. Garfield Nelson Lymphocytes/100 WBC (Bld) 24.9 % Normal 20.5-60.0 [facility] Comment on above: Performed By: #### V ITAD #### [facility] [address] [place] [address] Dr. Garfield Nelson MANUAL DIFF REQ NO Normal [facility] Comment on above: Performed By: #### V ITAD #### [facility] [address] [place] [address] Dr. Garfield Nelson MCH (RBC) [Entitic mass] 28.5 pg Normal 26.7-34.0 [facility] Comment on above: Performed By: #### V ITAD #### [facility] [address] [place] [address] Dr. Garfield Nelson MCHC (RBC) [Mass/Vol] 32.5 g/dL Normal 29.9-35.2 [facility] Comment on above: Performed By: #### V ITAD #### [facility] [address] [place] [address] Dr. Garfield Nelson MCV (RBC) [Entitic vol] 87.7 fL Normal 81.0-99.0 [facility] Comment on above: Performed By: #### V ITAD #### [facility] [address] [place] [address] Dr. Garfield Nelson MONO # 1.0 103/ul Critically high 0.3-0.8 [facility] Comment on above: Performed By: #### V ITAD #### [facility] [address] [place] [address] Dr. Garfield Nelson Monocytes/100 WBC (Bld) 12.3 % Critically high 1.7-12.0 [facility] Comment on above: Performed By: #### V ITAD #### [facility] [address] [place] [address] Dr. Garfield Nelson NEUT # 4.9 103/ul Normal 1.4-6.5 [facility] Comment on above: Performed By: #### V ITAD #### [facility] [address] [place] [address] Dr. Garfield Nelson Neutrophils/100 WBC (Bld) 60.6 % Normal 43.0-75.0 [facility] Comment on above: Performed By: #### V ITAD #### [facility] [address] [place] [address] Dr. Garfield Nelson Platelet mean volume (Bld) [Entitic vol] 12.0 fL Normal 9.5-13.5 [facility] Comment on above: Performed By: #### V ITAD #### [facility] [address] [place] [address] Dr. Garfield Nelson PLT 247 103/ul Normal 150-450 [facility] Comment on above: Performed By: #### V ITAD #### [facility] [address] [place] [address] Dr. Garfield Nelson RBC 4.46 106/ul Normal 4.20-5.40 [facility] Comment on above: Performed By: #### V ITAD #### [facility] [address] [place] [address] Dr. Garfield Nelson WBC 8.1 103/ul Normal 4.0-11.0 [facility] Comment on above: Performed By: #### V ITAD #### [facility] [address] [place] [address] Dr. Garfield Nelson MAGNESIUMon 02-11-2022 Magnesium [Mass/Vol] 2.0 mg/dL Normal 1.8-2.4 [facility] Comment on above: Performed By: #### RAKESH Feng CMP #### [facility] [address] [place] [address] Dr. Garfield Nelson PHOSPHORUSon 02-11-2022 Phosphate [Mass/Vol] 3.6 mg/dL Normal 2.6-4.7 [facility] Comment on above: Performed By: #### RAKESH Feng CMP #### [facility] [address] [address] [address] Garfield Nelson PROF 14(COMP METB)on 022 Albumin [Mass/Vol] 3.8 g/dL Normal 3.4-5.[address] [facility] Comment on above: Performed By: #### M G, PHOS, CMP #### [facility] [address] [address] [address] Garfield Nelson Albumin/Globulin [Mass ratio] 1.0 {ratio} Normal [facility] Comment on above: Performed By: #### M G, PHOS, CMP #### [facility] [address] [address] [address] Garfield Nelson ALP [Catalytic activity/Vol] 69 U/L Normal 46-116 [facility] Comment on above: Performed By: #### M G, PHOS, CMP #### [facility] [address] [address] [address] Garfield Nelson ALT [Catalytic activity/Vol] 14 U/L Normal 14-59 [facility] Comment on above: Performed By: #### M G, PHOS, CMP #### [facility] [address] [address] [address] Garfield Nelson Anion gap [Moles/Vol] 12.4 mmol/L Normal [facility] Comment on above: Performed By: #### M G, PHOS, CMP #### [facility] [address] [address] [address] Garfield Nelson AST [Catalytic activity/Vol] 22 U/L Normal 15-37 [facility] Comment on above: Performed By: #### M G, PHOS, CMP #### [facility] [address] [address] [address] Garfield Nelson Bilirubin [Mass/Vol] 0.3 mg/dL Normal 0.2-1.0 [facility] Comment on above: Performed By: #### M G, PHOS, CMP #### [facility] [address] [address] [address] Garfield Nelson Calcium [Mass/Vol] 8.6 mg/dL Normal 8.5-10.[address] [facility] Comment on above: Performed By: #### RAKESH Feng, CMP #### [facility] [address] [place] [address] Dr. Garfield Nelson Chloride [Moles/Vol] 101 mmol/L Normal 98-107 [facility] Comment on above: Performed By: #### DAVID FengS, CMP #### [facility] [address] [place] [address] Dr. Garfield Nelson CO2 [Moles/Vol] 29.4 mmol/L Normal 21.0-32.0 [facility] Comment on above: Performed By: #### RAKESH Feng, CMP #### [facility] [address] [place] [address] Dr. Garfield Nelson Creatinine [Mass/Vol] 0.79 mg/dL Normal 0.55-1.02 [facility] Comment on above: Performed By: #### RAKESH Feng, CMP #### [facility] [address] [place] [address] Dr. Gafrield Nelson EGFR-AF PERUVIAN >60 Normal >=60 [facility] Comment on above: Performed By: #### RAKESH Feng, CMP #### [facility] [address] [place] [address] Dr. Garfield Nelson EGFR-NON AF PERUVIAN >60 Normal >=60 [facility] Comment on above: Performed By: #### RAKESH Feng, CMP #### [facility] [address] [place] [address] Dr. Garfield Nelson Globulin (S) [Mass/Vol] 3.9 g/dL Normal [facility] Comment on above: Performed By: #### RAKESH Feng, CMP #### [facility] [address] [place] [address] Dr. Garfield Nelson Glucose [Mass/Vol] 109 mg/dL Critically high 74-106 [facility] Comment on above: Performed By: #### DAVID FengS, CMP #### [facility] [address] [place] [address] Dr. Garfield Nelson Potassium [Moles/Vol] 3.8 mmol/L Normal 3.5-5.1 [facility] Comment on above: Performed By: #### M RAKESH Dougherty CMP #### [facility] [address] [address] [address] Garfield Nelson Protein [Mass/Vol] 7.7 g/dL Normal 6.4-8.2 [facility] Comment on above: Performed By: #### RAKESH Feng, CMP #### [facility] [address] [address] [address] Garfield Nelson Sodium [Moles/Vol] 139 mmol/L Normal 136-145 [facility] Comment on above: Performed By: #### RAKESH Feng, CMP #### [facility] [address] [place] [address] Dr. Garfield Nelson Urea nitrogen [Mass/Vol] 17.0 mg/dL Normal 7.0-18.0 [facility] Comment on above: Performed By: #### RAKESH Feng, CMP #### [facility] [address] [place] [address] Dr. Garfield Nelson Urea nitrogen/Creatinine [Mass ratio] 21.5 mg/mg Normal [facility] Comment on above: Performed By: #### RAKESH Feng, CMP #### [facility] [address] [place] [address] Dr. Garfield Nelson SED RATE [facility] 2021 SED RATE 40 mm/hr Critically high <=30 [facility] Comment on above: Performed By: #### C SUITE #### [facility] [address] [place] [address] Dr. Garfield Nelson UA RANDOM W/MICROSCOPICon BACTERIA NONE SEEN Normal NONE SEEN [facility] Comment on above: Performed By: #### C SUITE #### [facility] [address] [place] [address] Dr. Garfield Nelson Bilirubin Ql (U) Negative Normal NEGATIVE [facility] Comment on above: Performed By: #### C SUITE #### [facility] [address] [place] [address] Dr. Garfield Nelson CAST NONE SEEN Normal NONE SEEN [facility] Comment on above: Performed By: #### C SUITE #### [facility] [address] [place] [address] Dr. Garfield Nelson Clarity (U) CLEAR Normal CLEAR [facility] Comment on above: Performed By: #### C SUITE #### [facility] [address] [place] [address] Dr. Garfield Nelson Color (U) LT. YELLOW Normal YELLOW [facility] Comment on above: Performed By: #### C SUITE #### [facility] [address] [place] [address] Dr. Garfield Nelson Crystals LM Nom (Urine sed) NONE SEEN Normal NONE SEEN [facility] Comment on above: Performed By: #### C SUITE #### [facility] [address] [place] [address] Dr. Garfield Nelson Epithelial cells LM Ql (Urine sed) NONE SEEN Normal NONE SEEN /RARE [facility] Comment on above: Performed By: #### C SUITE #### [facility] [address] [place] [address] Dr. Garfield Nelson Glucose Ql (U) Negative Normal NEGATIVE [facility] Comment on above: Performed By: #### C SUITE #### [facility] [address] [place] [address] Dr. Garfield Nelson Hemoglobin Ql (U) Negative Normal NEGATIVE [facility] Comment on above: Performed By: #### C SUITE #### [facility] [address] [place] [address] Dr. Garfield Nelson Ketones Ql (U) Negative Normal NEGATIVE [facility] Comment on above: Performed By: #### C SUITE #### [facility] [address] [place] [address] Dr. Garfield Nelson LEUKOCYTES Negative Normal NEGATIVE [facility] Comment on above: Performed By: #### C SUITE #### [facility] [address] [place] [address] Dr. Garfield Nelson MUCOUS NONE SEEN Normal NONE SEEN [facility] Comment on above: Performed By: #### C SUITE #### [facility] [address] [place] [address] Dr. Garfield Nelson Nitrite Ql (U) Negative Normal NEGATIVE [facility] Comment on above: Performed By: #### C SUITE #### [facility] [address] [place] [address] Dr. Garfield Nelson pH (U) 6.0 [pH] Normal 5-9 [facility] Comment on above: Performed By: #### C SUITE #### [facility] [address] [place] [address] Dr. Garfield Nelson RBC 0-2 Normal 0-2 [facility] Comment on above: Performed By: #### C SUITE #### [facility] [address] [place] [address] Dr. Garfield Nelson SPEC GRAVITY 1.025 Normal 1.005-<=1.025 [facility] Comment on above: Performed By: #### C SUITE #### [facility] [address] [place] [address] Dr. Garfield Nelson UA PROTEIN Negative Normal NEGATIVE/ TRACE [facility] Comment on above: Performed By: #### C SUITE #### [facility] [address] [place] [address] Dr. Garfield Nelson Urobilinogen Qn (U) 0.2 {Marquise'U}/dL Normal 0.2 - 1. 0 [facility] Comment on above: Performed By: #### C SUITE #### [facility] [address] [place] [address] Dr. Garfield Nelson WBC NONE SEEN Normal NONE SEEN [facility] Comment on above: Performed By: #### C SUITE #### [facility] [address] [place] [address] Dr. Garfield Nelson [facility] echo transthoracicon [facility] echo transthoracic [facility] [place] [address] [place] [address] Echocardiogram Signed Patient: Sierra Alberts MR#: [id number] : 1965 Acct:[id number] Age/Sex: 56 / F ADM Date: 01/02/22 Loc: Room: Type: [facility] Attending Dr: Patricia SALEH Ordering Provider: THERESE Shaw Date of Service: 01/02/22/ [facility] echo transthoracic: Pulmonary fibrosis. PHTN. SOB. [facility] drug therapy. Copies to: Mayte Way MD, [facility] THERESE Shaw BSA: 1.5 m2 BP: 115/83 mmHg HR: 75 Reason For Study: Pulmonary fibrosis. PHTN. SOB. intermediate accountant drug therapy. History: pulmonary hypertension Interpretation Summary The left ventricular size, thickness and function are normal Ejection Fraction = 60-65%. Trace aortic regurgitation. Right ventricular systolic pressure is normal. Compared to the prior echo report on 05/25/2020, there is no significant change. Procedure/Quality: A two-dimensional transthoracic echocardiogram with color flow and Doppler was performed. The study was technically good in quality. Compared to the prior echo report on 05/25/2020, there is no significant change. Left Ventricle: The left ventricular size, thickness and function are normal. Ejection Fraction = 60-65%. Left Atrium: The left atrium appears normal in size. The atrial septum appears normal. Right Atrium: The right atrium appears normal in size. Right Ventricle: The right ventricular size, thickness and function are normal. Aortic Valve: The aortic valve is trileaflet. Trace aortic regurgitation. Mitral Valve: The mitral valve is normal in structure and function. Tricuspid Valve: The tricuspid valve is normal. There is trace tricuspid regurgitation. Right ventricular systolic pressure is normal. Pulmonic Valve: The pulmonic valve is not well seen, but is grossly normal. Arteries: The aortic root is normal size. Pericardium/Pleura: No pericardial effusion seen. There is no pleural effusion. IVC/Hepatic Viens: The inferior vena cava is normal in size, with a normal collapsibility index. Miscellaneous: No thrombus, vegetation or mass is seen. Measurements with Normals IVSd: 0.94 cm (0.7-1.1 cm)LVIDd: 4.2 cm (3.7-5.4 cm) LVPWd: 0.86 cm (0.7-1.1 cm)LVIDs: 2.5 cm (2.3-3.6 cm) LA dimension: 3.2 cm (2.3-4.0 cm)Ao root diam: 2.6 cm(2.0-3.6 cm) asc Aorta Diam: 2.8 cm(2.1-3.4cm) Doppler with Normals MV E max fredi: 78.8 cm/sec(0.8-1.3m/s) MV A max fredi: 52.7 cm/sec(0.0-0.0m/s) MV E/A: 1.5 (<1.5) MMode/2D Measurements Calculations TAPSE: 1.7 cm FS: 39.1 % Ao root area: LVOT diam: 1.8 cm RV S Fredi: EDV(Teich): 5.3 cm2 LVOT area: 2.5 cm2 12.2 cm/sec 77.2 ml ESV(Teich): 23.2 ml EF(Teich): 70.0 % __ LVLd ap4: 6.3 cm SV(MOD-sp4): LAV(MOD-sp4): LA A2 area: 13.2 cm2 EDV(MOD-sp4): 27.5 ml 20.0 ml 43.2 ml LAV(MOD-sp2): LA A4 area: 9.9 cm2 LVLs ap4: 5.2 cm 30.5 ml LA length (vol): ESV(MOD-sp4): 3.5 cm 15.7 ml LA vol: 31.8 ml EF(MOD-sp4): 63.7 % LA vol index: 21.6 ml/m2 Doppler Measurements Calculations MV dec time: E/E' lat: MV dec slope: AI max fredi: 0.30 sec 6.9 410.2 cm/sec E/E' med: 266.5 cm/sec2 AI max P.3 mmHg 6.7 AI dec slope: 262.3 cm/sec2 AI P1/2t: 458.1 msec __ RAP systole: 5.0 mmHg Pediatric Measurements Calculations IVC diam: 1.2 cm Transcribed By: SCV Performed At: 01/02/22 1254 Signed By: Mayte Way MD, [facility] 01/02/22 1417 [facility] PAP ACOG PANEL 2: 30 to 65on 12-23-2021 . . Normal [facility] Comment on above: Result Comment: Perf ormed at: WB Performed By: #### M Farhat, PHOS, CMP #### [facility] [address] [address] [address] Garfield Nelson Age Gdln ACOG Testing 30-65 [facility] Comment on above: Performed By: #### M Farhat, PHOS, CMP #### [facility] [address] [address] [address] Garfield Nelson DIAGNOSIS: Comment Normal [facility] Comment on above: Result Comment: NEGA TIVE FOR INTRAEPITHELIAL LESION OR MALIGNANCY. CELLULAR CHANGES ASSOCIATED WITH ATROPHY ARE PRESENT. Performed at: WB Performed By: #### M Farhat PHOS, CMP #### [facility] [address] [address] [address] Garfield Nelson HPV Aptima Negative Normal [facility] Comment on above: Result Comment: This nucleic acid amplification test detects fourteen high-risk HPV types (16,18,31,33,35,39,45,51,52,56,58,59,66,68) without differentiation. Performed at: =G Performed By: #### M Farhat, PHOS, CMP #### [facility] [address] [address] [address] Garfield Nelson Methodology: Comment Normal [facility] Comment on above: Result Comment: This liquid based ThinPrep(R) pap test was screened with the use of an image guided system. Performed at: WB Performed By: #### M G, PHOS, CMP #### [facility] [address] [address] [address] Garfield Nelson Note: Comment Normal [facility] Comment on above: Result Comment: The Pap smear is a screening test designed to aid in the detection of premalignant and malignant conditions of the uterine cervix. It is not a diagnostic procedure and should not be used as the sole means of detecting cervical cancer. Both false-positive and false-negative reports do occur. . Performed at: WB Performed By: #### M RAKESH Dougherty, CMP #### [facility] [address] [place] [address] Dr. Garfield Nelson Performed by: Comment Normal [facility] Comment on above: Result Comment: Dinesh Noble, [employer] (ASCP) Performed at: WB Performed By: #### RAKESH Feng, CMP #### [facility] [address] [place] [address] Dr. Garfield Nelson Specimen adequacy: Comment Normal [facility] Comment on above: Result Comment: Sati sfactory for evaluation. Endocervical component may not be distinguished in cases of atrophy. Performed at: WB Performed By: #### M RAKESH Dougherty, CMP #### [facility] [address] [place] [address] Dr. Garfield Nelson CBC AUTO DIFFon 12-17-2021 BASO # 0.0 103/ul Normal 0.0-0.1 [facility] Comment on above: Performed By: #### V ITAD #### [facility] [address] [place] [address] Dr. Garfield Nelson Basophils/100 WBC (Bld) 0.6 % Normal 0.2-2.0 [facility] Comment on above: Performed By: #### V ITAD #### [facility] [address] [place] [address] Dr. Garfield Nelson EO # 0.2 103/ul Normal 0.0-0.7 [facility] Comment on above: Performed By: #### V ITAD #### [facility] [address] [place] [address] Dr. Garfield Nelson Eosinophils/100 WBC (Bld) 2.8 % Normal 0.9-7.0 [facility] Comment on above: Performed By: #### V ITAD #### [facility] [address] [place] [address] Dr. Garfield Nelson Erythrocyte distribution width (RBC) [Ratio] 14.0 % Normal 11.0-15.0 [facility] Comment on above: Performed By: #### V ITAD #### [facility] [address] [place] [address] Dr. Garfield Nelson Hematocrit (Bld) [Volume fraction] 42.3 % Normal 36.0-48.0 [facility] Comment on above: Performed By: #### V ITAD #### [facility] [address] [place] [address] Dr. Garfield Nelson Hemoglobin (Bld) [Mass/Vol] 13.3 g/dL Normal 12.0-16.0 [facility] Comment on above: Performed By: #### V ITAD #### [facility] [address] [place] [address] Dr. Garfield Nelson IG # 0.02 10e3/ul Normal 0.00-0.03 [facility] Comment on above: Performed By: #### V ITAD #### [facility] [address] [place] [address] Dr. Garfield Nelson IG % 0.3 % Normal 0.0-0.5 [facility] Comment on above: Performed By: #### V ITAD #### [facility] [address] [place] [address] Dr. Garfield Nelson LYMPH # 1.9 103/ul Normal 1.2-3.8 [facility] Comment on above: Performed By: #### V ITAD #### [facility] [address] [place] [address] Dr. Garfield Nelson Lymphocytes/100 WBC (Bld) 30.0 % Normal 20.5-60.0 [facility] Comment on above: Performed By: #### V ITAD #### [facility] [address] [place] [address] Dr. Garfield Nelson MANUAL DIFF REQ NO Normal [facility] Comment on above: Performed By: #### V ITAD #### [facility] [address] [address] [address] Garfield Nelson MCH (RBC) [Entitic mass] 28.5 pg Normal 26.7-34.0 [facility] Comment on above: Performed By: #### V ITAD #### [facility] [address] [place] [address] Dr. Garfield Nelson MCHC (RBC) [Mass/Vol] 31.4 g/dL Normal 29.9-35.2 [facility] Comment on above: Performed By: #### V ITAD #### [facility] [address] [place] [address] Dr. Garfield Nelson MCV (RBC) [Entitic vol] 90.8 fL Normal 81.0-99.0 [facility] Comment on above: Performed By: #### V ITAD #### [facility] [address] [place] [address] Dr. Garfield Nelson MONO # 0.9 103/ul Critically high 0.3-0.8 [facility] Comment on above: Performed By: #### V ITAD #### [facility] [address] [place] [address] Dr. Garfield Nelson Monocytes/100 WBC (Bld) 13.4 % Critically high 1.7-12.0 [facility] Comment on above: Performed By: #### V ITAD #### [facility] [address] [place] [address] Dr. Garfield Nelson NEUT # 3.4 103/ul Normal 1.4-6.5 [facility] Comment on above: Performed By: #### V ITAD #### [facility] [address] [place] [address] Dr. Garfield Nelson Neutrophils/100 WBC (Bld) 52.9 % Normal 43.0-75.0 [facility] Comment on above: Performed By: #### V ITAD #### [facility] [address] [place] [address] Dr. Garfield Nelson Platelet mean volume (Bld) [Entitic vol] 12.2 fL Normal 9.5-13.5 [facility] Comment on above: Performed By: #### V ITAD #### [facility] [address] [address] [address] Garfield Nelson PLT 258 103/ul Normal 150-450 [facility] Comment on above: Performed By: #### V ITAD #### [facility] [address] [address] [address] Garfield Nelson RBC 4.66 106/ul Normal 4.20-5.40 [facility] Comment on above: Performed By: #### V ITAD #### [facility] [address] [address] [address] Garfield Nelson WBC 6.3 103/ul Normal 4.0-11.0 [facility] Comment on above: Performed By: #### V ITAD #### [facility] [address] [place] [address] Dr. Garfield Nelson LIPID PROFILEon 12-17-2021 CHOL-HDL RATIO NORM SEE BELOW Normal [facility] Comment on above: Result Comment: 3.3 - 4.4 LOW RISK 4.4 - 7.1 AVERAGE RISK 7.1 - 11.0 MODERATE RISK >11.0 HIGH RISK Performed By: #### RAKESH Feng, CMP #### [facility] [address] [place] [address] Dr. Garfield Nelson Cholesterol [Mass/Vol] 204 mg/dL Critically high <=200 [facility] Comment on above: Performed By: #### DAVID FengS, CMP #### [facility] [address] [address] [address] Garfield Nelson Cholesterol in HDL [Mass/Vol] 75 mg/dL Critically high 40-60 [facility] Comment on above: Performed By: #### DAVID FengS, CMP #### [facility] [address] [place] [address] Dr. Garfield Nelson Cholesterol in LDL [Mass/Vol] 121.0 mg/dL Normal [facility] Comment on above: Performed By: #### Sekou Dougherty PHOS, CMP #### [facility] [address] [address] [address] Garfield Nelson Cholesterol.total/Ch olesterol in HDL [Mass ratio] 2.7 {ratio} Normal [facility] Comment on above: Performed By: #### DAVID FengS, CMP #### [facility] [address] [address] [address] Garfield Nelson HDL NORMAL > or = 60 mg/dl - LO W CARDIOVASCULAR RISK <40 mg/dl - HIGH CARDIOVASCULAR RISK Normal [facility] Comment on above: Performed By: #### Sekou Dougherty PHOS, CMP #### [facility] [address] [address] [address] Garfield Nelson LDL CALC NORMAL SEE BELOW Normal [facility] Comment on above: Result Comment: <100 mg/dl OPTIMAL 100 - 129 mg/dl NEAR OR ABOVE OPTIMAL 130 - 159 mg/dl BORDERLINE HIGH 160 - 189 mg/dl HIGH >190 mg/dl VERY HIGH Performed By: #### DAVID FengS, CMP #### [facility] [address] [address] [address] Garfield Nelson Triglyceride [Mass/Vol] 40 mg/dL Normal <=150 [facility] Comment on above: Performed By: #### RAKESH Feng, CMP #### [facility] [address] [address] [address] Garfield Nelson VLDL CALC 8.0 mg/dL Normal [facility] Comment on above: Performed By: #### RAKESH Feng, CMP #### [facility] [address] [address] [address] Garfield Nelson PROF 14(COMP METB)on 022 Albumin [Mass/Vol] 3.8 g/dL Normal 3.4-5.[address] [facility] Comment on above: Performed By: #### RAKESH Feng, CMP #### [facility] [address] [place] [address] Dr. Garfield Nelson Albumin/Globulin [Mass ratio] 0.9 {ratio} Normal [facility] Comment on above: Performed By: #### Sekou Dougherty PHOS, CMP #### [facility] [address] [address] [address] Garfield Nelson ALP [Catalytic activity/Vol] 65 U/L Normal 46-116 [facility] Comment on above: Performed By: #### M DAVID DoughertyS, CMP #### [facility] [address] [place] [address] Dr. Garfield Nelson ALT [Catalytic activity/Vol] 19 U/L Normal 14-59 [facility] Comment on above: Performed By: #### M Farhat PHOS, CMP #### [facility] [address] [place] [address] Dr. Garfield Nelson Anion gap [Moles/Vol] 10.6 mmol/L Normal [facility] Comment on above: Performed By: #### DAVID FengS, CMP #### [facility] [address] [place] [address] Dr. Garfield Nelson AST [Catalytic activity/Vol] 18 U/L Normal 15-37 [facility] Comment on above: Performed By: #### DAVID FengS, CMP #### [facility] [address] [place] [address] Dr. Garfield Nelson Bilirubin [Mass/Vol] 0.5 mg/dL Normal 0.2-1.0 [facility] Comment on above: Performed By: #### RAKESH Feng, CMP #### [facility] [address] [place] [address] Dr. Garfield Nelson Calcium [Mass/Vol] 8.9 mg/dL Normal 8.5-10.[address] [facility] Comment on above: Performed By: #### Sekou Dougherty PHOS, CMP #### [facility] [address] [place] [address] Dr. Garfield Nelson Chloride [Moles/Vol] 106 mmol/L Normal 98-107 [facility] Comment on above: Performed By: #### Sekou Dougherty PHOS, CMP #### [facility] [address] [place] [address] Dr. Garfield Nelson CO2 [Moles/Vol] 28.6 mmol/L Normal 21.0-32.0 [facility] Comment on above: Performed By: #### Sekou Dougherty PHOS, CMP #### [facility] [address] [address] [address] Garfield Nelson Creatinine [Mass/Vol] 0.88 mg/dL Normal 0.55-1.02 [facility] Comment on above: Performed By: #### RAKESH Feng, CMP #### [facility] [address] [address] [address] Garfield Nelson EGFR-AF PERUVIAN >60 Normal >=60 [facility] Comment on above: Performed By: #### RAKESH Feng, CMP #### [facility] [address] [address] [address] Garfield Nelson EGFR-NON AF PERUVIAN >60 Normal >=60 [facility] Comment on above: Performed By: #### RAKESH Feng, CMP #### [facility] [address] [place] [address] Dr. Garfield Nelson Globulin (S) [Mass/Vol] 4.1 g/dL Normal [facility] Comment on above: Performed By: #### RAKESH Feng, CMP #### [facility] [address] [address] [address] Garfield Nelson Glucose [Mass/Vol] 93 mg/dL Normal 74-106 [facility] Comment on above: Performed By: #### RAKESH Feng, CMP #### [facility] [address] [address] [address] Garfield Nelson Potassium [Moles/Vol] 4.2 mmol/L Normal 3.5-5.1 [facility] Comment on above: Performed By: #### RAKESH Feng, CMP #### [facility] [address] [address] [address] Garfield Nelson Protein [Mass/Vol] 7.9 g/dL Normal 6.4-8.2 [facility] Comment on above: Performed By: #### DAVID FengS, CMP #### [facility] [address] [address] [address] Garfield Nelson Sodium [Moles/Vol] 141 mmol/L Normal 136-145 [facility] Comment on above: Performed By: #### RAKESH Feng, CMP #### [facility] [address] [place] [address] Dr. Garfield Nelson Urea nitrogen [Mass/Vol] 22.0 mg/dL Critically high 7.0-18.0 [facility] Comment on above: Performed By: #### RAKESH Feng, CMP #### [facility] [address] [place] [address] Dr. Garfield Nelson Urea nitrogen/Creatinine [Mass ratio] 25.0 mg/mg Normal [facility] Comment on above: Performed By: #### RAKESH Feng CMP #### [facility] [address] [place] [address] Dr. Garfield Nelson TSHon 12-17-2021 TSH 2.939 uIU/mL Normal 0.358-3.740 [facility] Comment on above: Performed By: #### RAKESH Feng CMP #### [facility] [address] [place] [address] Dr. Garfield Nelson VITAMIN D 25 OHon 12-17-2021 VIT D 25-OH 34.5 ng/mL Normal [facility] Comment on above: Performed By: #### V ITAD #### [facility] [address] [place] [address] Dr. Garfield Nelson VIT D RANGES SEE BELOW Normal [facility] Comment on above: Result Comment: <20 ng/mL Vit D deficient 20 - <30 ng/mL Vit D insufficient 30 - 100 ng/mL Vit D sufficient >100 ng/mL Potential Toxicity Performed By: #### V ITAD #### [facility] [address] [place] [address] Dr. Garfield Nelson C3 and C4 COMPLEMENTon 11-14 Complement C3, Serum 109 mg/dL Normal 82-167 [facility] Comment on above: Performed By: #### C SUITE #### [facility] [address] [place] [address] Dr. Garfield Nelson Complement C4, Serum 19 mg/dL Normal 12-38 [facility] Comment on above: Performed By: #### C SUITE #### [facility] [address] [address] [address] Garfield Nelson MG MAMM SCREEN 3D PATRICA CADon 11-14-2021 MG MAMM SCREEN 3D PATRICA CAD Patient: SIERRA ALBERTS Exam Date: 11/14/2021 : 1965 Gender:F Ordering : DR JUDITH MARTINEZ . Admission #: [id number] Family : Order #: [id number] CLICK HERE TO VIEW EXAM RADIOLOGY REPORT PROCEDURE: MAMMOGRAM SCREENING 3D BILATERAL CAD COMPARISON: MG MAMM SCREEN 3D PATRICA CAD, 11/13/2020. MG MAMM SCREEN PATRICA W CAD, 11/11/2019. INDICATIONS: Screening mammography Calculator Name NCI Breast Cancer Risk Assessment Tool 5 Year Breast Cancer Risk 1.20% Lifetime Breast Cancer Risk 8.10% Personal Breast Cancer No Personal Ovarian Cancer No Treatments None Family Cancers Aunt-maternal with breast cancer at age 60; Aunt-maternal with breast cancer at age 60. LOCATION: [facility] BREAST COMPOSITION: Extremely dense, which lowers the sensitivity of mammography. FINDINGS: DIAGNOSTIC CATEGORY 1--NEGATIVE. NO CHANGE FROM COMPARISON ASSESSMENT. Scattered benign-appearing lymph nodes are present. RIGHT BREAST: No significant suspicious finding. LEFT BREAST: No significant suspicious finding. RECOMMENDATIONS: ROUTINE MAMMOGRAM AND CLINICAL EVALUATION IN 12 MONTHS. PLEASE NOTE: A NORMAL MAMMOGRAM DOES NOT EXCLUDE THE POSSIBILITY OF BREAST CANCER. A CLINICALLY SUSPICIOUS PALPABLE LUMP SHOULD BE BIOPSIED. Dictated by: Guanaco Chong MD on 11/14/2021 at 12:23 Approved by: Guanaco Chong MD on 11/14/2021 at 12:25 Normal [facility] COMPLEMENT TOTAL (CH50)on Complement, Total (CH50) >60 Normal >41 [facility] Comment on above: Result Comment: Age Male Female 1 - 30 days Not Estab. Not Estab. 31 days - 6 months >32 >20 7 months - 17 years >39 >39 >17 years >41 >41 NOTE: The adult ( >17 years ) reference interval range is used to flag abnormals on this report. If the patient is 17 years old or younger, use the table above to determine out of range values. Performed By: #### C H50T #### [facility] [address] [address] [address] Garfield Nelson CBC AUTO DIFFon 11-12-2021 BASO # 0.1 103/ul Normal 0.0-0.1 [facility] Comment on above: Performed By: #### C SUITE #### [facility] [address] [place] [address] Dr. Garfield Nelson Basophils/100 WBC (Bld) 0.7 % Normal 0.2-2.0 [facility] Comment on above: Performed By: #### C SUITE #### [facility] [address] [place] [address] Dr. Garfield Nelson EO # 0.2 103/ul Normal 0.0-0.7 [facility] Comment on above: Performed By: #### C SUITE #### [facility] [address] [place] [address] Dr. Garfield Nelson Eosinophils/100 WBC (Bld) 2.6 % Normal 0.9-7.0 [facility] Comment on above: Performed By: #### C SUITE #### [facility] [address] [place] [address] Dr. Garfield Nelson Erythrocyte distribution width (RBC) [Ratio] 14.1 % Normal 11.0-15.0 [facility] Comment on above: Performed By: #### C SUITE #### [facility] [address] [place] [address] Dr. Garfield Nelson Hematocrit (Bld) [Volume fraction] 42.2 % Normal 36.0-48.0 [facility] Comment on above: Performed By: #### C SUITE #### [facility] [address] [place] [address] Dr. Garfield Nelson Hemoglobin (Bld) [Mass/Vol] 13.2 g/dL Normal 12.0-16.0 [facility] Comment on above: Performed By: #### C SUITE #### [facility] [address] [place] [address] Dr. Garfield Nelson IG # 0.02 10e3/ul Normal 0.00-0.03 [facility] Comment on above: Performed By: #### C SUITE #### [facility] [address] [place] [address] Dr. Garfield Nelson IG % 0.3 % Normal 0.0-0.5 [facility] Comment on above: Performed By: #### C SUITE #### [facility] [address] [place] [address] Dr. Garfield Nelson LYMPH # 2.1 103/ul Normal 1.2-3.8 [facility] Comment on above: Performed By: #### C SUITE #### [facility] [address] [place] [address] Dr. Garfield Nelson Lymphocytes/100 WBC (Bld) 28.2 % Normal 20.5-60.0 [facility] Comment on above: Performed By: #### C SUITE #### [facility] [address] [place] [address] Dr. Garfield Nelson MANUAL DIFF REQ NO Normal [facility] Comment on above: Performed By: #### C SUITE #### [facility] [address] [place] [address] Dr. Garfield Nelson MCH (RBC) [Entitic mass] 28.3 pg Normal 26.7-34.0 [facility] Comment on above: Performed By: #### C SUITE #### [facility] [address] [place] [address] Dr. Garfield Nelson MCHC (RBC) [Mass/Vol] 31.3 g/dL Normal 29.9-35.2 [facility] Comment on above: Performed By: #### C SUITE #### [facility] [address] [place] [address] Dr. Garfield Nelson MCV (RBC) [Entitic vol] 90.6 fL Normal 81.0-99.0 [facility] Comment on above: Performed By: #### C SUITE #### [facility] [address] [place] [address] Dr. Garfield Nelson MONO # 1.0 103/ul Critically high 0.3-0.8 [facility] Comment on above: Performed By: #### C SUITE #### [facility] [address] [place] [address] Dr. Garfield Nelson Monocytes/100 WBC (Bld) 13.9 % Critically high 1.7-12.0 [facility] Comment on above: Performed By: #### C SUITE #### [facility] [address] [place] [address] Dr. Garfield Nelson NEUT # 4.0 103/ul Normal 1.4-6.5 [facility] Comment on above: Performed By: #### C SUITE #### [facility] [address] [place] [address] Dr. Garfield Nelson Neutrophils/100 WBC (Bld) 54.3 % Normal 43.0-75.0 [facility] Comment on above: Performed By: #### C SUITE #### [facility] [address] [place] [address] Dr. Garfield Nelson Platelet mean volume (Bld) [Entitic vol] 12.3 fL Normal 9.5-13.5 [facility] Comment on above: Performed By: #### C SUITE #### [facility] [address] [place] [address] Dr. Garfield Nelson PLT 256 103/ul Normal 150-450 [facility] Comment on above: Performed By: #### C SUITE #### [facility] [address] [place] [address] Dr. Garfield Nelson RBC 4.66 106/ul Normal 4.20-5.40 [facility] Comment on above: Performed By: #### C SUITE #### [facility] [address] [place] [address] Dr. Garfield Nelson WBC 7.4 103/ul Normal 4.0-11.0 [facility] Comment on above: Performed By: #### C SUITE #### [facility] [address] [place] [address] Dr. Garfield Nelson MAGNESIUMon 11-12-2021 Magnesium [Mass/Vol] 2.0 mg/dL Normal 1.8-2.4 [facility] Comment on above: Performed By: #### M G, PHOS, CMP #### [facility] [address] [place] [address] Dr. Garfield Nelson PHOSPHORUSon 11-12-2021 Phosphate [Mass/Vol] 3.4 mg/dL Normal 2.6-4.7 [facility] Comment on above: Performed By: #### RAKESH Feng, CMP #### [facility] [address] [address] [address] Garfield Nelson PROF 14(COMP METB)on 022 Albumin [Mass/Vol] 3.9 g/dL Normal 3.4-5.[address] [facility] Comment on above: Performed By: #### RAKESH Feng, CMP #### [facility] [address] [address] [address] Garfield Nelson Albumin/Globulin [Mass ratio] 1.0 {ratio} Normal [facility] Comment on above: Performed By: #### RAKESH Feng, CMP #### [facility] [address] [place] [address] Dr. Garfield Nelson ALP [Catalytic activity/Vol] 68 U/L Normal 46-116 [facility] Comment on above: Performed By: #### RAKESH Feng, CMP #### [facility] [address] [place] [address] Dr. Garfield Nelson ALT [Catalytic activity/Vol] 16 U/L Normal 14-59 [facility] Comment on above: Performed By: #### RAKESH Feng, CMP #### [facility] [address] [place] [address] Dr. Garfield Nelson Anion gap [Moles/Vol] 9.7 mmol/L Normal [facility] Comment on above: Performed By: #### RAKESH Feng, CMP #### [facility] [address] [place] [address] Dr. Garfield Nelson AST [Catalytic activity/Vol] 17 U/L Normal 15-37 [facility] Comment on above: Performed By: #### RAKESH Feng, CMP #### [facility] [address] [place] [address] Dr. Garfield Nelson Bilirubin [Mass/Vol] 0.4 mg/dL Normal 0.2-1.0 [facility] Comment on above: Performed By: #### RAKESH Feng, CMP #### [facility] [address] [address] [address] Garfield Nelson Calcium [Mass/Vol] 9.0 mg/dL Normal 8.5-10.[address] [facility] Comment on above: Performed By: #### M G, PHOS, CMP #### [facility] [address] [address] [address] Garfield Nelson Chloride [Moles/Vol] 103 mmol/L Normal 98-107 [facility] Comment on above: Performed By: #### M G, PHOS, CMP #### [facility] [address] [address] [address] Garfield Nelson CO2 [Moles/Vol] 30.2 mmol/L Normal 21.0-32.0 [facility] Comment on above: Performed By: #### M G, PHOS, CMP #### [facility] [address] [address] [address] Garfield Nelson Creatinine [Mass/Vol] 0.92 mg/dL Normal 0.55-1.02 [facility] Comment on above: Performed By: #### M G, PHOS, CMP #### [facility] [address] [place] [address] Dr. Garfield Nelson EGFR-AF PERUVIAN >60 Normal >=60 [facility] Comment on above: Performed By: #### M G, PHOS, CMP #### [facility] [address] [address] [address] Garfield Nelson EGFR-NON AF PERUVIAN >60 Normal >=60 [facility] Comment on above: Performed By: #### M G, PHOS, CMP #### [facility] [address] [address] [address] Garfield Nelson Globulin (S) [Mass/Vol] 3.8 g/dL Normal [facility] Comment on above: Performed By: #### M G, PHOS, CMP #### [facility] [address] [address] [address] Garfield Nelson Glucose [Mass/Vol] 101 mg/dL Normal 74-106 [facility] Comment on above: Performed By: #### M RAKESH Dougherty, CMP #### [facility] [address] [address] [address] Garfield Nelson Potassium [Moles/Vol] 3.9 mmol/L Normal 3.5-5.1 [facility] Comment on above: Performed By: #### RAKESH Feng, CMP #### [facility] [address] [address] [address] Garfield Nelson Protein [Mass/Vol] 7.7 g/dL Normal 6.4-8.2 [facility] Comment on above: Performed By: #### RAKESH Feng, CMP #### [facility] [address] [place] [address] Dr. Garfield Nelson Sodium [Moles/Vol] 139 mmol/L Normal 136-145 [facility] Comment on above: Performed By: #### RAKESH Feng, CMP #### [facility] [address] [place] [address] Dr. Garfield Nelson Urea nitrogen [Mass/Vol] 16.0 mg/dL Normal 7.0-18.0 [facility] Comment on above: Performed By: #### RAKESH Feng, CMP #### [facility] [address] [place] [address] Dr. Garfield Nelson Urea nitrogen/Creatinine [Mass ratio] 17.4 mg/mg Normal [facility] Comment on above: Performed By: #### RAKESH Feng, CMP #### [facility] [address] [place] [address] Dr. Garfield Nelson SED RATE WESTERGRENon 2021 SED RATE 58 mm/hr Critically high <=30 [facility] Comment on above: Performed By: #### C SUITE #### [facility] [address] [place] [address] Dr. Garfield Nelson UA RANDOM W/MICROSCOPICon BACTERIA NONE SEEN Normal NONE SEEN [facility] Comment on above: Performed By: #### V ITAD #### [facility] [address] [place] [address] Dr. Garfield Nelson Bilirubin Ql (U) Negative Normal NEGATIVE [facility] Comment on above: Performed By: #### V ITAD #### [facility] [address] [place] [address] Dr. Garfield Nelson CAST NONE SEEN Normal NONE SEEN [facility] Comment on above: Performed By: #### V ITAD #### [facility] [address] [place] [address] Dr. Garfield Nelson Clarity (U) CLEAR Normal CLEAR [facility] Comment on above: Performed By: #### V ITAD #### [facility] [address] [place] [address] Dr. Garfield Nelson Color (U) LT. YELLOW Normal YELLOW [facility] Comment on above: Performed By: #### V ITAD #### [facility] [address] [place] [address] Dr. Garfield Nelson Crystals LM Nom (Urine sed) NONE SEEN Normal NONE SEEN [facility] Comment on above: Performed By: #### V ITAD #### [facility] [address] [place] [address] Dr. Garfield Nelson Epithelial cells LM Ql (Urine sed) NONE SEEN Normal NONE SEEN /RARE [facility] Comment on above: Performed By: #### V ITAD #### [facility] [address] [place] [address] Dr. Garfield Nelson Glucose Ql (U) Negative Normal NEGATIVE [facility] Comment on above: Performed By: #### V ITAD #### [facility] [address] [place] [address] Dr. Garfield Nelson Hemoglobin Ql (U) Negative Normal NEGATIVE [facility] Comment on above: Performed By: #### V ITAD #### [facility] [address] [place] [address] Dr. Garfield Nelson Ketones Ql (U) Negative Normal NEGATIVE [facility] Comment on above: Performed By: #### V ITAD #### [facility] [address] [place] [address] Dr. Garfield Nelson LEUKOCYTES Negative Normal NEGATIVE [facility] Comment on above: Performed By: #### V ITAD #### [facility] [address] [place] [address] Dr. Garfield Nelson MUCOUS NONE SEEN Normal NONE SEEN [facility] Comment on above: Performed By: #### V ITAD #### [facility] [address] [place] [address] Dr. Garfield Nelson Nitrite Ql (U) Negative Normal NEGATIVE [facility] Comment on above: Performed By: #### V ITAD #### [facility] [address] [place] [address] Dr. Garfield Nelson pH (U) 6.0 [pH] Normal 5-9 [facility] Comment on above: Performed By: #### V ITAD #### [facility] [address] [place] [address] Dr. Garfield Nelson RBC 0-2 Normal 0-2 [facility] Comment on above: Performed By: #### V ITAD #### [facility] [address] [place] [address] Dr. Garfield Nelson SPEC GRAVITY 1.020 Normal 1.005-<=1.025 [facility] Comment on above: Performed By: #### V ITAD #### [facility] [address] [place] [address] Dr. Garfield Nelson UA PROTEIN Negative Normal NEGATIVE/ TRACE [facility] Comment on above: Performed By: #### V ITAD #### [facility] [address] [place] [address] Dr. Garfield Nelson Urobilinogen Qn (U) 0.2 {Marquise'U}/dL Normal 0.2 - 1. 0 [facility] Comment on above: Performed By: #### V ITAD #### [facility] [address] [place] [address] Dr. Garfield Nelson WBC NONE SEEN Normal NONE SEEN [facility] Comment on above: Performed By: #### V ITAD #### [facility] [address] [place] [address] Dr. Garfield Nelson C3 and C4 COMPLEMENTon 08-08 Complement C3, Serum 131 mg/dL Normal 82-167 [facility] Comment on above: Performed By: #### C SUITE #### [facility] [address] [place] [address] Dr. Garfield Nelson Complement C4, Serum 18 mg/dL Normal 12-38 [facility] Comment on above: Performed By: #### C SUITE #### [facility] [address] [place] [address] Dr. Garfield Nelson COMPLEMENT TOTAL (CH50)on Complement, Total (CH50) >60 Normal >41 [facility] Comment on above: Result Comment: Age Male Female 1 - 30 days Not Estab. Not Estab. 31 days - 6 months >32 >20 7 months - 17 years >39 >39 >17 years >41 >41 NOTE: The adult ( >17 years ) reference interval range is used to flag abnormals on this report. If the patient is 17 years old or younger, use the table above to determine out of range values. Performed By: #### M RAKESH Dougherty, CMP #### [facility] [address] [place] [address] Dr. Garfield Nelson CBC AUTO DIFFon 08-07-2021 BASO # 0.1 103/ul Normal 0.0-0.1 [facility] Comment on above: Performed By: #### V ITAD #### [facility] [address] [place] [address] Dr. Garfield Nelson Basophils/100 WBC (Bld) 0.6 % Normal 0.2-2.0 [facility] Comment on above: Performed By: #### V ITAD #### [facility] [address] [place] [address] Dr. Garfield Nelson EO # 0.1 103/ul Normal 0.0-0.7 [facility] Comment on above: Performed By: #### V ITAD #### [facility] [address] [place] [address] Dr. Garfield Nelson Eosinophils/100 WBC (Bld) 1.1 % Normal 0.9-7.0 [facility] Comment on above: Performed By: #### V ITAD #### [facility] [address] [place] [address] Dr. Garfield Nelson Erythrocyte distribution width (RBC) [Ratio] 14.5 % Normal 11.0-15.0 [facility] Comment on above: Performed By: #### V ITAD #### [facility] [address] [place] [address] Dr. Garfield Nelson Hematocrit (Bld) [Volume fraction] 40.6 % Normal 36.0-48.0 [facility] Comment on above: Performed By: #### V ITAD #### [facility] [address] [place] [address] Dr. Garfield Nelson Hemoglobin (Bld) [Mass/Vol] 12.8 g/dL Normal 12.0-16.0 [facility] Comment on above: Performed By: #### V ITAD #### [facility] [address] [place] [address] Dr. Garfield Nelson IG # 0.02 10e3/ul Normal 0.00-0.03 [facility] Comment on above: Performed By: #### V ITAD #### [facility] [address] [place] [address] Dr. Garfield Nelson IG % 0.2 % Normal 0.0-0.5 [facility] Comment on above: Performed By: #### V ITAD #### [facility] [address] [place] [address] Dr. Garfield Nelson LYMPH # 1.7 103/ul Normal 1.2-3.8 [facility] Comment on above: Performed By: #### V ITAD #### [facility] [address] [place] [address] Dr. Garfield Nelson Lymphocytes/100 WBC (Bld) 20.0 % Critically low 20.5-60.0 [facility] Comment on above: Performed By: #### V ITAD #### [facility] [address] [place] [address] Dr. Garfield Nelson MANUAL DIFF REQ NO Normal [facility] Comment on above: Performed By: #### V ITAD #### [facility] [address] [place] [address] Dr. Garfield Nelson MCH (RBC) [Entitic mass] 28.4 pg Normal 26.7-34.0 [facility] Comment on above: Performed By: #### V ITAD #### [facility] [address] [place] [address] Dr. Garfield Nelson MCHC (RBC) [Mass/Vol] 31.5 g/dL Normal 29.9-35.2 [facility] Comment on above: Performed By: #### V ITAD #### [facility] [address] [place] [address] Dr. Garfield Nelson MCV (RBC) [Entitic vol] 90.0 fL Normal 81.0-99.0 [facility] Comment on above: Performed By: #### V ITAD #### [facility] [address] [place] [address] Dr. Garfield Nelson MONO # 0.9 103/ul Critically high 0.3-0.8 [facility] Comment on above: Performed By: #### V ITAD #### [facility] [address] [place] [address] Dr. Grafield Nelson Monocytes/100 WBC (Bld) 10.9 % Normal 1.7-12.0 [facility] Comment on above: Performed By: #### V ITAD #### [facility] [address] [place] [address] Dr. Garfield Nelson NEUT # 5.7 103/ul Normal 1.4-6.5 [facility] Comment on above: Performed By: #### V ITAD #### [facility] [address] [place] [address] Dr. Garfield Nelson Neutrophils/100 WBC (Bld) 67.2 % Normal 43.0-75.0 [facility] Comment on above: Performed By: #### V ITAD #### [facility] [address] [place] [address] Dr. Garfield Nelson Platelet mean volume (Bld) [Entitic vol] 12.1 fL Normal 9.5-13.5 [facility] Comment on above: Performed By: #### V ITAD #### [facility] [address] [place] [address] Dr. Garfield Nelson PLT 249 103/ul Normal 150-450 [facility] Comment on above: Performed By: #### V ITAD #### [facility] [address] [place] [address] Dr. Garfield Nelson RBC 4.51 106/ul Normal 4.20-5.40 [facility] Comment on above: Performed By: #### V ITAD #### [facility] [address] [place] [address] Dr. Garfield Nelson WBC 8.5 103/ul Normal 4.0-11.0 [facility] Comment on above: Performed By: #### V ITAD #### [facility] [address] [place] [address] Dr. Garfield Nelson MAGNESIUMon 08-07-2021 Magnesium [Mass/Vol] 2.0 mg/dL Normal 1.8-2.4 [facility] Comment on above: Performed By: #### C SUITE #### [facility] [address] [place] [address] Dr. Garfield Nelson PHOSPHORUSon 08-07-2021 Phosphate [Mass/Vol] 3.6 mg/dL Normal 2.6-4.7 [facility] Comment on above: Performed By: #### C SUITE #### [facility] [address] [place] [address] Dr. Garfield Nelson PROF 14(COMP METB)on 022 Albumin [Mass/Vol] 3.8 g/dL Normal 3.4-5.[address] [facility] Comment on above: Performed By: #### C SUITE #### [facility] [address] [place] [address] Dr. Garfield Nelson Albumin/Globulin [Mass ratio] 0.9 {ratio} Normal [facility] Comment on above: Performed By: #### C SUITE #### [facility] [address] [place] [address] Dr. Garfield Nelson ALP [Catalytic activity/Vol] 73 U/L Normal 46-116 [facility] Comment on above: Performed By: #### C SUITE #### [facility] [address] [address] [address] Garfield Nelson ALT [Catalytic activity/Vol] 24 U/L Normal 14-59 [facility] Comment on above: Performed By: #### C SUITE #### [facility] [address] [place] [address] Dr. Garfield Nelson Anion gap [Moles/Vol] 12.0 mmol/L Normal [facility] Comment on above: Performed By: #### C SUITE #### [facility] [address] [address] [address] Garfield Nelson AST [Catalytic activity/Vol] 22 U/L Normal 15-37 [facility] Comment on above: Performed By: #### C SUITE #### [facility] [address] [place] [address] Dr. Garfield Nelson Bilirubin [Mass/Vol] 0.4 mg/dL Normal 0.2-1.0 [facility] Comment on above: Performed By: #### C SUITE #### [facility] [address] [place] [address] Dr. Garfield Nelson Calcium [Mass/Vol] 8.9 mg/dL Normal 8.5-10.[address] [facility] Comment on above: Performed By: #### C SUITE #### [facility] [address] [place] [address] Dr. Garfield Nelson Chloride [Moles/Vol] 102 mmol/L Normal 98-107 [facility] Comment on above: Performed By: #### C SUITE #### [facility] [address] [place] [address] Dr. Garfield Nelson CO2 [Moles/Vol] 27.2 mmol/L Normal 21.0-32.0 [facility] Comment on above: Performed By: #### C SUITE #### [facility] [address] [place] [address] Dr. Garfield Nelson Creatinine [Mass/Vol] 0.86 mg/dL Normal 0.55-1.02 [facility] Comment on above: Performed By: #### C SUITE #### [facility] [address] [place] [address] Dr. Garfield Nelson EGFR-AF PERUVIAN >60 Normal >=60 [facility] Comment on above: Performed By: #### C SUITE #### [facility] [address] [place] [address] Dr. Garfield Nelson EGFR-NON AF PERUVIAN >60 Normal >=60 [facility] Comment on above: Performed By: #### C SUITE #### [facility] [address] [place] [address] Dr. Garfield Nelson Globulin (S) [Mass/Vol] 4.4 g/dL Normal [facility] Comment on above: Performed By: #### C SUITE #### [facility] [address] [place] [address] Dr. Garfield Nelson Glucose [Mass/Vol] 108 mg/dL Critically high 74-106 [facility] Comment on above: Performed By: #### C SUITE #### [facility] [address] [place] [address] Dr. Garfield Nelson Potassium [Moles/Vol] 4.2 mmol/L Normal 3.5-5.1 [facility] Comment on above: Performed By: #### C SUITE #### [facility] [address] [place] [address] Dr. Garfield Nelson Protein [Mass/Vol] 8.2 g/dL Normal 6.4-8.2 [facility] Comment on above: Performed By: #### C SUITE #### [facility] [address] [place] [address] Dr. Garfield Nelson Sodium [Moles/Vol] 137 mmol/L Normal 136-145 [facility] Comment on above: Performed By: #### C SUITE #### [facility] [address] [place] [address] Dr. Garfield Nelson Urea nitrogen [Mass/Vol] 15.0 mg/dL Normal 7.0-18.0 [facility] Comment on above: Performed By: #### C SUITE #### [facility] [address] [place] [address] Dr. Garfield Nelson Urea nitrogen/Creatinine [Mass ratio] 17.4 mg/mg Normal [facility] Comment on above: Performed By: #### C SUITE #### [facility] [address] [place] [address] Dr. Garfield Nelson SED RATE WESTERGREN 2021 SED RATE 11 mm/hr Normal <=30 [facility] Comment on above: Performed By: #### C SUITE #### [facility] [address] [place] [address] Dr. Garfield Nelson UA RANDOM W/MICROSCOPICon BACTERIA NONE SEEN Normal NONE SEEN [facility] Comment on above: Performed By: #### U AMIC #### [facility] [address] [place] [address] Dr. Garfield Nelson Bilirubin Ql (U) Negative Normal NEGATIVE [facility] Comment on above: Performed By: #### U AMIC #### [facility] [address] [place] [address] Dr. Garfield Nelson CAST NONE SEEN Normal NONE SEEN [facility] Comment on above: Performed By: #### U AMIC #### [facility] [address] [place] [address] Dr. Garfield Nelson Clarity (U) CLEAR Normal CLEAR [facility] Comment on above: Performed By: #### U AMIC #### [facility] [address] [place] [address] Dr. Garfield Nelson Color (U) LT. YELLOW Normal YELLOW [facility] Comment on above: Performed By: #### U AMIC #### [facility] [address] [place] [address] Dr. Garfield Nelson Crystals LM Nom (Urine sed) NONE SEEN Normal NONE SEEN [facility] Comment on above: Performed By: #### U AMIC #### [facility] [address] [place] [address] Dr. Garfield Nelson Epithelial cells LM Ql (Urine sed) FEW Abnormal NONE SEEN /RARE [facility] Comment on above: Performed By: #### U AMIC #### [facility] [address] [place] [address] Dr. Garfield Nelson Glucose Ql (U) Negative Normal NEGATIVE [facility] Comment on above: Performed By: #### U AMIC #### [facility] [address] [address] [address] Garfield Nelson Hemoglobin Ql (U) Negative Normal NEGATIVE [facility] Comment on above: Performed By: #### U AMIC #### [facility] [address] [address] [address] Garfield Nelson Ketones Ql (U) Negative Normal NEGATIVE [facility] Comment on above: Performed By: #### U AMIC #### [facility] [address] [address] [address] Garfield Nelson LEUKOCYTES Negative Normal NEGATIVE [facility] Comment on above: Performed By: #### U AMIC #### [facility] [address] [place] [address] Dr. Garfield Nelson MUCOUS NONE SEEN Normal NONE SEEN [facility] Comment on above: Performed By: #### U AMIC #### [facility] [address] [address] [address] Garfield Nelson Nitrite Ql (U) Negative Normal NEGATIVE [facility] Comment on above: Performed By: #### U AMIC #### [facility] [address] [address] [address] Garfield Nelson pH (U) 6.0 [pH] Normal 5-9 [facility] Comment on above: Performed By: #### U AMIC #### [facility] [address] [address] [address] Garfield Nelson RBC NONE SEEN Abnormal 0-2 [facility] Comment on above: Performed By: #### U AMIC #### [facility] [address] [address] [address] Garfield Nelson SPEC GRAVITY 1.010 Normal 1.005-<=1.025 [facility] Comment on above: Performed By: #### U AMIC #### [facility] [address] [place] [address] Dr. Garfield Nelson UA PROTEIN Negative Normal NEGATIVE/ TRACE [facility] Comment on above: Performed By: #### U AMIC #### [facility] [address] [address] [address] Garfield Nelson Urobilinogen Qn (U) 0.2 {Marquise'U}/dL Normal 0.2 - 1. 0 [facility] Comment on above: Performed By: #### U AMIC #### [facility] [address] [address] [address] Garfield Nelson WBC NONE SEEN Normal NONE SEEN [facility] Comment on above: Performed By: #### U AMIC #### [facility] [address] [address] [address] Garfield Nelson Vital Signs Date Time Vital Sign Value Performing Clinician Facility 12-18-2022 11:00-0400 Body height 157.48 cm Rich Jose Other [facility] 12-18-2022 11:00-0400 Body mass index (BMI) [Ratio] 19.02 kg/m2 Rich Garcia Other [facility] 12-18-2022 11:00-0400 Body weight 47.17 kg Rich Jose Other [facility] 12-18-2022 11:00-0400 Diastolic blood pressure 78 mm[Hg] Rich Jose Other [facility] 12-18-2022 11:00-0400 Respiratory rate 12 /min Rich Jose Other [facility] 12-18-2022 11:00-0400 Systolic blood pressure 117 mm[Hg] Rich Jose Other [facility] Other Encounters Encounter Date Encounter Type Care Provider Facility Start: 12-18-2022 End: 12-18-2022 ambulatory Rich Jose Other [facility] Start: 12-18-2022 Encounter for genera l adult medical examination without abnormal findings Rich Garcia [facility] Start: 12-18-2022 Periodic preventive med est patient 40-64yrs Rich Garcia [facility] Start: 12-05-2022 End: 12-05-2022 ambulatory Rich Garcia Other [facility] Start: 12-05-2022 Nursing evaluation o f patient and report Rich Garcia [facility] Start: 05-12-2022 End: 05-13-[address] NIKI BOWMAN Facility:[facility] Start: 04-11-2022 End: 04-11-2022 ambulatory Rich Garcia Other [facility] Start: 04-11-2022 Office outpatient vi sit 15 minutes Rich Garcia [facility] Start: 03-11-2022 End: 03-11-2022 ambulatory Rich Garcia Other [facility] Start: 03-11-2022 Office outpatient vi sit 15 minutes Rich Garcia [facility] Start: 02-11-2022 End: 02-12-[address] DOCTOR SMITH Facility:[facility] Start: 01-02-2022 End: 01-02-2022 ambulatory Patricia Ornelas Facility:[facility] Start: 01-02-2022 End: 01-02-2022 ambulatory DO Rich Jose Work Phone: [facility] Work Phone: Start: 01-02-2022 End: 01-02-2022 Patient encounter procedure DO Rich Garcia Work Phone: [facility] Start: 01-02-2022 ambulatory Facility:[id number] Start: 12-19-2021 Encounter for genera l adult medical examination without abnormal findings DR RICH GARCIA [facility] Start: 12-17-2021 End: 12-18-[address] RICH GARCIA Facility:[facility] Start: 12-17-2021 End: 12-18-2021 Encounter for general adult medical examination without abnormal findings DR RICH GARCIA Facility:[facility] Start: 12-16-2021 End: 12-16-[address] JUDITH MARTINEZ . Facility:[facility] Start: 12-16-2021 Gynecological examination normal Rich Garcia Other [facility] Start: 12-13-2021 Adult health examination Douglas Garcia Other [facility] Start: 11-14-2021 End: 11-15-[address] JUDITH MARTINEZ . Facility:[facility] Start: 11-12-2021 End: 11-13-[address] DOCTOR SMITH Facility:[facility] Start: 08-07-2021 End: 08-08-[address] DOCTOR SMITH Facility:[facility] Procedures Date Procedure Procedure Detail Performing Clinician Start: 12-15-2017 General examination of patient Rich Garcia Other Depression screening Nam Garcia Other Screening for malign ant neoplasm of breast Rich Garcia Other End: 12-12-2021 Screening for malignant neoplasm of breast Rich Garcia Other Screening for malign ant neoplasm of breast Rich Garcia Other Screening for malign ant neoplasm of colon Rich Garcia Other End: 12-04-2020 Screening for osteoporosis Rich Garcia Other Immunizations Immunization Date Immunization Notes Care Provider Lorraine person 12-05-2022 influenza, injectabl e, quadrivalent, preservative free Rich Garcia Other [facility] 12-13-2021 influenza virus vaccine, split virus (incl. purified surface antigen) Rich Garcia Other [facility] 12-12-2020 COVID-19 mRNA, Comirnaty (Pfizer) DO Rich Garcia Work Phone: [facility] 12-05-2020 influenza virus vaccine, split virus (incl. purified surface antigen) Rich Garcia Other [facility] 05-04-2020 COVID-19 mRNA, Comirnaty (Pfizer) DO Rich Garcia Work Phone: [facility] 04-13-2020 COVID-19 mRNA, Comirnaty (Pfizer) DO Rich Garcia Work Phone: [facility] 12-08-2019 influenza virus vaccine, split virus (incl. purified surface antigen) Rich Garcia Other [facility] Other 01-05-2019 pneumococcal polysaccharide vaccine, 23 valent Rich Garcia Other [place] [facility] Other 12-03-2018 influenza virus vaccine, split virus (incl. purified surface antigen) Rich Garcia Other [facility] 12-15-2017 influenza virus vaccine, split virus (incl. purified surface antigen) Rich Garcia Other [facility] Other 12-10-2016 tetanus and diphther ia toxoids, adsorbed, preservative free, for adult use (5 Lf of tetanus toxoid and 2 Lf of diphtheria toxoid) Rich Garcia Other [facility] 12-12-2015 tetanus and diphther ia toxoids, adsorbed, preservative free, for adult use (5 Lf of tetanus toxoid and 2 Lf of diphtheria toxoid) Rich Garcia Other [facility] Other 11-15-2015 pneumococcal conjuga te vaccine, 13 valent Rich Garcia Other [facility] Other 12-19-2014 tetanus and diphther ia toxoids, adsorbed, preservative free, for adult use (5 Lf of tetanus toxoid and 2 Lf of diphtheria toxoid) Rich Garcia Other [facility] Other 12-14-2012 tetanus and diphther ia toxoids, adsorbed, preservative free, for adult use (5 Lf of tetanus toxoid and 2 Lf of diphtheria toxoid) Rich Ball Other [facility] Other Payers Date Payer Category Payer Self-pay [id number] 2021 Unknown [id number] 1965 Unknown [id number] 2.16. [id number] 1965 Unknown [id number] 2.16.84 [id number] 1965 Unknown [id number] 2.16.84 [id number] 1965 Unknown [id number] 2.16.84 [id number] 1965 Unknown [id number] 2.16.84 [id number] 1965 Unknown [id number] 2.16.84 [id number] 1965 Unknown [id number] 2.16.84 [id number] 1965 Unknown [id number] 2.16.84 [id number] 1959 Unknown [id number] 2.1 [id number] Unknown [id number] 2.16.8 [id number] Social History Date Type Detail Facility Start: 01-28-2021 Tobacco smoking status NHIS Never smoked tobacco (finding) [facility] Start: 1965 Sex Assigned At Female F [facility] Sex Assigned At Sex Assigned At Bir th [place] [facility] Other Evaluation note 12-18-2022 Note Date & Type Note Facility 12-18-2022 Evaluation note Encounter Date Diagnosis Assessment Notes Nov, Age-related osteoporosis without current pathological fracture (ICD-10 - M81.0) Ca and Vit D supplements. Continue weight bearing exercises Drug holiday from bisphosphonates Due for DEXA next year Nov, Wellness examination (ICD-10 - Z00.00) Healthy diet and exercise. Reviewed age-appropriate preventive testing recommended. Nov, Progressive systemic sclerosis (ICD-10 - M34.0) Stable, continue present treatment. f/u Rheumatology Nov, Raynaud''s phenomenon without gangrene (ICD-10 - I73.00) No ischemic ulcers. Protect from cold weather exposure. No need for nitrates or CCB at this time. Nov, GERD (gastroesophageal reflux disease) (ICD-10 - K21.9) Diet instructions: Smaller portions, avoid eating and laying flat, avoid eating or drinking prior to bedtime. Nov, Immunosuppressed status (ICD-10 - D84.9) UTD w/ vaccines. Recommend new COVID No s/s of intercurrent infection Nov, Screening mammogram for breast cancer (ICD-10 - Z12.31) Instructed patient on monthly SBE and yearly mammograms. [facility] Other Evaluation note 04-11-2022 Note Date & Type Note Facility 04-11-2022 Evaluation note Encounter Date Diagnosis Assessment Notes Apr, Acute non-recurrent maxillary sinusitis (ICD-10 - J01.00) Instructed to use Robitussin or Mucinex for cough, saline or Flonase NS for congestion, Tylenol for pain and fever. Apr, Immunosuppressed status (ICD-10 - D84.9) Monitor for persistent high temperature, spread of symptoms to lungs, SOB or CP. [facility] Other Evaluation note 03-11-2022 Note Date & Type Note Facility 03-11-2022 Evaluation note Encounter Date Diagnosis Assessment Notes Mar, Acute bronchitis due to other specified organisms (ICD-10 - J20.8) Instructed to use Robitussin or Mucinex for cough, saline or Flonase NS for congestion, Tylenol for pain and fever. 10 Mar, 2022 Progressive systemic sclerosis (ICD-10 - M34.0) Continue DMARDS per Rheumatology. Immunosuppres sed due to disease and treatment, empiric treatment of any infection necessary [facility] Other Evaluation note Note Date & Type Note Facility Evaluation note No assessment information availa [facility] Work Phone: Evaluation note Note Date & Type Note Facility Evaluation note No Information [facility] Other History general Narrative - Reported Note Date & Type Note Facility History general Narrative - Reported Type Medical History Scleroderma Medical History Breast cancer screening by mammo gram Medical History Progressive systemic sclerosis Medical History Raynaud''s phenomenon without ga ngrene Medical History Age-related osteopor osis without current pathological fracture Surgical History HYSTERECTOMY Hospitalization History see surgical history [facility] Other Chief Complaint and Reason for Visit Chief Complaint j84.10 i27.0 r06.02 r06.00 m35.9 z79.899 Family History Relationship Condition Age at Onset Recorded Date/T sam Not Specified Vascular disorder Unknown Diabetes mellitus Unknown Heart disease Unknown father Irritable bowel syndrome Unknown Advance Directives Advance Directive Response Recorded Date/ Time Advance Directives No December 11:15am Summary Purpose Additional Source Comments Care Teams (unrecognized sec tion and content) Team Status: Inactive Member Role Status Dates Rich Garcia DO Primary Care Provider Active THERESE Shaw Attending Provider Active Team Status: Active Member Role Status Dates Rich Garcia DO Primary Care Provider Active Goals (unrecognized section and content) Goals may be documented in a n alternate sectionNo InformationNo InformationNo InformationNo Information INFORMATION SOURCE (unrecogn ized section and content) DATE CREATED AUTHOR 04/05/2022 [facility] DATE CREATED AUTHOR AUTHOR'S ORGANIZ ATION 04/05/2022 [facility] DATE CREATED AUTHOR AUTHOR'S ORGANIZ ATION 05/19/2022 [facility] REASON FOR VISIT (unrecogniz ed section and content) Cough/ Sinuses [phone] inuses/ Sick [phone] [employer] FOR RECORDS PERTAINING TO PATIENTS WHO ARE OR HAVE BEEN ENROLLED IN A CHEMICAL DEPENDENCY/SUBSTANCEABUSE PROGRAM, SOME INFORMATION MAY BE OMITTED. This clinical summary was aggregated from multiple sources. Caution should be exercised in using it in the provision of clinical care. This summary normalizes information from multiple sources, and as a consequence, information in this document may materially change the coding, format and clinical context of patient data. In addition, data may be omitted in some cases. CLINICAL DECISIONS SHOULD BE BASED ON THE PRIMARY CLINICAL RECORDS. [facility] provides no warranty or guarantee of the accuracy or completeness of information in this document.
[2023-11-17 11:47] LABS: Alanine Aminotransferase 18 U/L (14-59); Albumin Level 3.9 g/dL (3.4-5.0); Alkaline Phosphatase 62 U/L (46-116); Aspartate Amino Transferase 18 U/L (15-37); BUN Creatinine Ratio 18.9; Bilirubin Total 0.5 mg/dL (0.2-1.0); Calcium 9.3 mg/dL (8.5-10.1); Carbon Dioxide 28.4 mmol/L (21.0-32.0); Chloride 103 mmol/L (98-107); Estimated GFR (African America >60 (>=60); Estimated GFR (Non-African Ame >60 (>=60); Glucose 88 mg/dL (74-106); Magnesium 1.8 mg/dL (1.8-2.4); Phosphorus 3.7 mg/dL (2.6-4.7); Potassium 4.4 mmol/L (3.5-5.1); Sodium 138 mmol/L (136-145); Total Protein 7.9 g/dL (6.4-8.2)
[2023-11-17 11:58] LABS: Basophils Absolute Auto 0.1 10^3/uL (0.0-0.1); Basophils Percent Auto 0.7 % (0.2-2.0); Eosinophils Absolute Auto 0.1 10^3/uL (0.0-0.7); Eosinophils Percent Auto 1.1 % (0.9-7.0); Hematocrit 42.5 % (36.0-48.0); Hemoglobin 13.6 g/dL (12.0-16.0); Immature Granulocytes Abs Auto 0.03 10^3/uL (0.00-0.03); Immature Granulocytes Pct Auto 0.4 % (0.0-0.5); Lymphocytes Absolute Auto 1.9 10^3/uL (1.2-3.8); Lymphocytes Percent Auto 23.4 % (20.5-60.0); Mean Corpuscular Hemoglobin 28.9 pg (26.7-34.0); Mean Corpuscular Volume 90.4 fL (81.0-99.0); Mean Platelet Volume 12.3 fL (9.5-13.5); Monocytes Percent Auto 12.1 % (1.7-12.0); Neutrophils Absolute Auto 5.1 10^3/uL (1.4-6.5); Neutrophils Percent Auto 62.3 % (43.0-75.0); Platelet Count 299 10^3/uL (150-450); White Blood Count 8.1 10^3/uL (4.0-11.0)
[2023-11-17 12:13] LABS: Bilirubin Urine NEGATIVE (NEGATIVE); Blood Urine NEGATIVE (NEGATIVE); Clarity Urine CLEAR (CLEAR); Color Urine LT. YELLOW (YELLOW); Glucose Urine UA NEGATIVE (NEGATIVE); Ketones Urine NEGATIVE (NEGATIVE); Leukocyte Esterase Urine NEGATIVE (NEGATIVE); Nitrite Urine NEGATIVE (NEGATIVE); Protein Urine NEGATIVE (NEG/TRACE); Urobilinogen Urine 0.2 EU/dL (0.2-1.0)
[2023-11-17 12:22] LABS: Bacteria Urine NONE SEEN #/HPF (NONE SEEN); Mucus Urine NONE SEEN (NONE SEEN); RBC Urine NONE SEEN #/HPF (0-2); WBC Urine NONE SEEN #/HPF (NONE SEEN)
[2023-11-17 12:23] LABS: Squamous Epithelial Cell Urine RARE #/LPF (NONE/RARE)
[2023-11-17 12:34] LABS: Erythrocyte Sedimentation Rate 36 mm/hr (<=30)
[2023-11-18 08:23] LABS: Complement C3, Serum 123 mg/dL (82-167); Complement C4, Serum 18 mg/dL (12-38)
[2023-11-18 14:10] LABS: Complement, Total (CH50) 60 U/mL (>41)
== END 2023-11-17 11:08 | disposition home or self-care (01) ==
LOC: LAB 11:07
PROVIDERS: Visit Provider Registered Nurse
DX: M81.0 Age-related osteoporosis without current pathological fracture (principal); M34.0 Progressive systemic sclerosis; I73.00 Raynaud's syndrome without gangrene; Z79.899 Other long term (current) drug therapy
CPT/HCPCS: 36415; 80053; 81001; 83735; 84100; 85025; 85652; 86160; 86162

== ENCOUNTER 2023-12-18 10:45 | Outpatient (OUT) | payer OTHER, SELFPAY ==
--- OUTSIDE RECORDS SUMMARY | 2023-12-18 10:49 | XMS_ITS | CCD ---
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 Name Role Phone DO Rich Garcia Primary Care Provider THERESE Ornelas Attending Provider Patricia Ornelas Attending [...] (1 source) Penicillins Drug allergy (disorder) 01-29-20 [facility] Repository (4 sources) Penicillin V Drug Allergy Unknown CONEXANCE MD Other (1 source) Penicillins Drug allergy (disorder) 03-02-19 03 [facility] Repository (1 source) Allergies Reconciled Propensity to adverse reactions Unknown CONEXANCE MD Other (2 sources) Substance with penicillin structure and antibacterial mechanism of action (substance) Drug allergy Comment:Rash CONEXANCE MD Other (1 source) patient allergy list reviewed by nurse or physicia Propensity to adverse reactions 12-11-19 Comment:Done CONEXANCE MD Other Medications Current Medications Medication Drug Class(es) [...] Inhibitor Omeprazole 20 MG (Prior Auth: Rx Ref#:[id number]) Oral for 90 Not-Taking Problems Active Problems [...] 3 Chronic Other aftercare (1 source) Other halfway (current) drug therapy; Translations: [OTH TELEMETRY MONITOR CURRENT DRUG THERAPY] Onset: 3 Episodic Other [...] Complement C3, Serum 99 mg/dL Normal 82-167 [facility] Comment on above: Performed By: #### V ITAD #### [facility] [address] [place] [address] Dr. Garfield Nelson Complement C4, Serum 14 mg/dL Normal 12-38 [facility] Comment on above: Performed By: #### V ITAD #### [facility] [address] [place] [address] Dr. Garfield Nelson COMPLEMENT TOTAL (CH50)on Complement, Total (CH50) >60 Normal >41 [facility] Comment on above: Result Comment: Age Male [...] values. Performed By: #### C H50T #### [facility] [address] [place] [address] Dr. Garfield Nelson CBC AUTO DIFFon 05-12-2022 BASO # 0.0 103/ul Normal 0.0-0.1 [facility] Comment on above: Performed By: #### C BC #### [facility] [address] [place] [address] Dr. Garfield Nelson Basophils/100 WBC (Bld) 0.4 % Normal 0.2-2.0 [facility] Comment on above: Performed By: #### C BC #### [facility] [address] [place] [address] Dr. Garfield Nelson EO # 0.1 103/ul Normal 0.0-0.7 [facility] Comment on above: Performed By: #### C BC #### [facility] [address] [place] [address] Dr. Garfield Nelson Eosinophils/100 WBC (Bld) 1.1 % Normal 0.9-7.0 [facility] Comment on above: Performed By: #### C BC #### [facility] [address] [place] [address] Dr. Garfield Nelson Erythrocyte distribution width (RBC) [Ratio] 14.9 % Normal 11.0-15.0 [facility] Comment on above: Performed By: #### C BC #### [facility] [address] [place] [address] Dr. Garfield Nelson Hematocrit (Bld) [Volume fraction] 38.3 % Normal 36.0-48.0 [facility] Comment on above: Performed By: #### C BC #### [facility] [address] [place] [address] Dr. Garfield Nelson Hemoglobin (Bld) [Mass/Vol] 12.2 g/dL Normal 12.0-16.0 [facility] Comment on above: Performed By: #### C BC #### [facility] [address] [place] [address] Dr. Garfield Nelson IG # 0.03 10e3/ul Normal 0.00-0.03 [facility] Comment on above: Performed By: #### C BC #### [facility] [address] [place] [address] Dr. Garfield Nelson IG % 0.3 % Normal 0.0-0.5 [facility] Comment on above: Performed By: #### C BC #### [facility] [address] [place] [address] Dr. Garfield Nelson LYMPH # 2.1 103/ul Normal 1.2-3.8 [facility] Comment on above: Performed By: #### C BC #### [facility] [address] [place] [address] Dr. Garfield Nelson Lymphocytes/100 WBC (Bld) 22.6 % Normal 20.5-60.0 [facility] Comment on above: Performed By: #### C BC #### [facility] [address] [place] [address] Dr. Garfield Nelson MANUAL DIFF REQ NO Normal [facility] Comment on above: Performed By: #### C BC #### [facility] [address] [place] [address] Dr. Garfield Nelson MCH (RBC) [Entitic mass] 28.5 pg Normal 26.7-34.0 [facility] Comment on above: Performed By: #### C BC #### [facility] [address] [address] [address] Garfield Nelson MCHC (RBC) [Mass/Vol] 31.9 g/dL Normal 29.9-35.2 [facility] Comment on above: Performed By: #### C BC #### [facility] [address] [place] [address] Dr. Garfield Nelson MCV (RBC) [Entitic vol] 89.5 fL Normal 81.0-99.0 [facility] Comment on above: Performed By: #### C BC #### [facility] [address] [place] [address] Dr. Garfield Nelson MONO # 1.0 103/ul Critically high 0.3-0.8 [facility] Comment on above: Performed By: #### C BC #### [facility] [address] [place] [address] Dr. Garfield Nelson Monocytes/100 WBC (Bld) 10.5 % Normal 1.7-12.0 [facility] Comment on above: Performed By: #### C BC #### [facility] [address] [place] [address] Dr. Garfield Nelson NEUT # 6.1 103/ul Normal 1.4-6.5 [facility] Comment on above: Performed By: #### C BC #### [facility] [address] [place] [address] Dr. Garfield Nelson Neutrophils/100 WBC (Bld) 65.1 % Normal 43.0-75.0 [facility] Comment on above: Performed By: #### C BC #### [facility] [address] [place] [address] Dr. Garfield Nelson Platelet mean volume (Bld) [Entitic vol] 12.1 fL Normal 9.5-13.5 [facility] Comment on above: Performed By: #### C BC #### [facility] [address] [place] [address] Dr. Garfield Nelson PLT 276 103/ul Normal 150-450 [facility] Comment on above: Performed By: #### C BC #### [facility] [address] [place] [address] Dr. Garfield Nelson RBC 4.28 106/ul Normal 4.20-5.40 [facility] Comment on above: Performed By: #### C BC #### [facility] [address] [place] [address] Dr. Garfield Nelson WBC 9.4 103/ul Normal 4.0-11.0 [facility] Comment on above: Performed By: #### C BC #### [facility] [address] [place] [address] Dr. Garfield Nelson MAGNESIUMon 05-12-2022 Magnesium [Mass/Vol] 2.0 mg/dL Normal 1.8-2.4 [facility] Comment on above: Performed By: #### V ITAD #### [facility] [address] [place] [address] Dr. Garfield Nelson PHOSPHORUSon 05-12-2022 Phosphate [Mass/Vol] 3.0 mg/dL Normal 2.6-4.7 [facility] Comment on above: Performed By: #### V ITAD #### [facility] [address] [place] [address] Dr. Garfield Nelson PROF 14(COMP METB)on 023 Albumin [Mass/Vol] 3.8 g/dL Normal 3.4-5.0 [facility] Comment on above: Performed By: #### V ITAD #### [facility] [address] [place] [address] Dr. Garfield Nelson Albumin/Globulin [Mass ratio] 1.0 {ratio} Normal [facility] Comment on above: Performed By: #### V ITAD #### [facility] [address] [place] [address] Dr. Garfield Nelson ALP [Catalytic activity/Vol] 93 U/L Normal 46-116 [facility] Comment on above: Performed By: #### V ITAD #### [facility] [address] [address] [address] Garfield Nelson ALT [Catalytic activity/Vol] 19 U/L Normal 14-59 [facility] Comment on above: Performed By: #### V ITAD #### [facility] [address] [address] [address] Garfield Nelson Anion gap [Moles/Vol] 9.5 mmol/L Normal [facility] Comment on above: Performed By: #### V ITAD #### [facility] [address] [address] [address] Garfield Nelson AST [Catalytic activity/Vol] 22 U/L Normal 15-37 [facility] Comment on above: Performed By: #### V ITAD #### [facility] [address] [place] [address] Dr. Garfield Nelson Bilirubin [Mass/Vol] 0.3 mg/dL Normal 0.2-1.0 [facility] Comment on above: Performed By: #### V ITAD #### [facility] [address] [place] [address] Dr. Garfield Nelson Calcium [Mass/Vol] 8.7 mg/dL Normal 8.5-10.[address] [facility] Comment on above: Performed By: #### V ITAD #### [facility] [address] [place] [address] Dr. Garfield Nelson Chloride [Moles/Vol] 104 mmol/L Normal 98-107 [facility] Comment on above: Performed By: #### V ITAD #### [facility] [address] [place] [address] Dr. Garfield Nelson CO2 [Moles/Vol] 29.0 mmol/L Normal 21.0-32.0 [facility] Comment on above: Performed By: #### V ITAD #### [facility] [address] [place] [address] Dr. Garfield Nelson Creatinine [Mass/Vol] 0.65 mg/dL Normal 0.55-1.02 [facility] Comment on above: Performed By: #### V ITAD #### [facility] [address] [address] [address] Garfield Nelson EGFR-AF [place]ER >60 Normal >=60 [facility] Comment on above: Performed By: #### V ITAD #### [facility] [address] [address] [address] Garfield Nelson EGFR-NON AF [place]ER >60 Normal >=60 [facility] Comment on above: Performed By: #### V ITAD #### [facility] [address] [address] [address] Garfield Nelson Globulin (S) [Mass/Vol] 3.8 g/dL Normal [facility] Comment on above: Performed By: #### V ITAD #### [facility] [address] [place] [address] Dr. Garfield Nelson Glucose [Mass/Vol] 87 mg/dL Normal 74-[address] [facility] Comment on above: Performed By: #### V ITAD #### [facility] [address] [place] [address] Dr. Garfield Nelson Potassium [Moles/Vol] 3.5 mmol/L Normal 3.5-5.1 [facility] Comment on above: Performed By: #### V ITAD #### [facility] [address] [place] [address] Dr. Garfield Nelson Protein [Mass/Vol] 7.6 g/dL Normal 6.4-8.2 [facility] Comment on above: Performed By: #### V ITAD #### [facility] [address] [address] [address] Garfield Nelson Sodium [Moles/Vol] 139 mmol/L Normal 136-145 [facility] Comment on above: Performed By: #### V ITAD #### [facility] [address] [place] [address] Dr. Garfield Nelson Urea nitrogen [Mass/Vol] 15.0 mg/dL Normal 7.0-18.0 [facility] Comment on above: Performed By: #### V ITAD #### [facility] [address] [place] [address] Dr. Garfield Nelson Urea nitrogen/Creatinine [Mass ratio] 23.1 mg/mg Normal [facility] Comment on above: Performed By: #### V ITAD #### [facility] [address] [place] [address] Dr. Garfield Nelson SED RATE WESTERGREN 2022 SED RATE 39 mm/hr Critically high <=30 [facility] Comment on above: Performed By: #### M G, DAVIDS, CMP #### [facility] [address] [place] [address] Dr. Garfield Nelson UA RANDOM W/MICROSCOPICon BACTERIA NONE SEEN Normal NONE SEEN [facility] Comment on above: Performed By: #### C SUITE #### [facility] [address] [place] [address] Dr. Garfield Nelson Bilirubin Ql (U) Negative Normal NEGATIVE [facility] Comment on above: Performed By: #### C SUITE #### [facility] [address] [place] [address] Dr. Garfield Nelson CAST NONE SEEN Normal NONE SEEN [facility] Comment on above: Performed By: #### C SUITE #### [facility] [address] [place] [address] Dr. Garfield Nelson Clarity (U) CLEAR Normal CLEAR [facility] Comment on above: Performed By: #### C SUITE #### [facility] [address] [place] [address] Dr. Garfield Nelson Color (U) LT. YELLOW Normal YELLOW [facility] Comment on above: Performed By: #### C SUITE #### [facility] [address] [place] [address] Dr. Garfield Nelson Crystals LM Nom (Urine sed) NONE SEEN Normal NONE SEEN [facility] Comment on above: Performed By: #### C SUITE #### [facility] [address] [place] [address] Dr. Garfield Nleson Epithelial cells LM Ql (Urine sed) RARE Normal NONE SEEN /RARE [facility] Comment on above: Performed By: #### C SUITE #### [facility] [address] [place] [address] Dr. Garfield Nelson Glucose Ql (U) Negative Normal NEGATIVE [facility] Comment on above: Performed By: #### C SUITE #### [facility] [address] [place] [address] Dr. Garfield Nelson Hemoglobin Ql (U) Negative Normal NEGATIVE [facility] Comment on above: Performed By: #### C SUITE #### [facility] [address] [place] [address] Dr. Garfield Nelson Ketones Ql (U) Negative Normal NEGATIVE [facility] Comment on above: Performed By: #### C SUITE #### [facility] [address] [place] [address] Dr. Garfield Nelson LEUKOCYTES Negative Normal NEGATIVE [facility] Comment on above: Performed By: #### C SUITE #### [facility] [address] [place] [address] Dr. Garifeld Nelson MUCOUS NONE SEEN Normal NONE SEEN [facility] Comment on above: Performed By: #### C SUITE #### [facility] [address] [place] [address] Dr. Garfield Nelson Nitrite Ql (U) Negative Normal NEGATIVE [facility] Comment on above: Performed By: #### C SUITE #### [facility] [address] [place] [address] Dr. Garfield Nelson pH (U) 7.0 [pH] Normal 5-9 [facility] Comment on above: Performed By: #### C SUITE #### [facility] [address] [place] [address] Dr. Garfield Nelson RBC NONE SEEN Abnormal 0-2 [facility] Comment on above: Performed By: #### C SUITE #### [facility] [address] [place] [address] Dr. Garfield Nelson SPEC GRAVITY <=1.005 Abnormal 1.005-<=1.025 [facility] Comment on above: Performed By: #### C SUITE #### [facility] [address] [place] [address] Dr. Garfield Nelson UA PROTEIN Negative Normal NEGATIVE/ TRACE [facility] Comment on above: Performed By: #### C SUITE #### [facility] [address] [place] [address] Dr. Garfield Nelson Urobilinogen Qn (U) 0.2 {Marquise'U}/dL Normal 0.2 - 1. 0 [facility] Comment on above: Performed By: #### C SUITE #### [facility] [address] [place] [address] Dr. Garfield Nelson WBC NONE SEEN Normal NONE SEEN [facility] Comment on above: Performed By: #### C SUITE #### [facility] [address] [place] [address] Dr. Garfield Nelson C3 and C4 COMPLEMENTon 02-12 Complement C3, Serum 117 mg/dL Normal 82-167 [facility] Comment on above: Performed By: #### V ITAD #### [facility] [address] [place] [address] Dr. Garfield Nelson Complement C4, Serum 20 mg/dL Normal 12-38 [facility] Comment on above: Performed By: #### V ITAD #### [facility] [address] [place] [address] Dr. Garfield Nelson COMPLEMENT TOTAL (CH50)on Complement, Total (CH50) >60 Normal >41 [facility] Comment on above: Result Comment: Age [...] values. Performed By: #### C H50T #### [facility] [address] [place] [address] Dr. Garfield Nelson CBC AUTO DIFFon 02-11-2022 BASO # 0.1 103/ul Normal 0.0-0.1 [facility] Comment on above: Performed By: #### V ITAD #### [facility] [address] [place] [address] Dr. Garfield Nelson Basophils/100 WBC (Bld) 0.6 % Normal 0.2-2.0 [facility] Comment on above: Performed By: #### V ITAD #### [facility] [address] [place] [address] Dr. Garfield Nelson EO # 0.1 103/ul Normal 0.0-0.7 [facility] Comment on above: Performed By: #### V ITAD #### [facility] [address] [place] [address] Dr. Garfield Nelson Eosinophils/100 WBC (Bld) 1.4 % Normal 0.9-7.0 [facility] Comment on above: Performed By: #### V ITAD #### [facility] [address] [place] [address] Dr. Garfield Nelson Erythrocyte distribution width (RBC) [Ratio] 14.2 % Normal 11.0-15.0 [facility] Comment on above: Performed By: #### V ITAD #### [facility] [address] [place] [address] Dr. Garfield Nelson Hematocrit (Bld) [Volume fraction] 39.1 % Normal 36.0-48.0 [facility] Comment on above: Performed By: #### V ITAD #### [facility] [address] [place] [address] Dr. Garfield Nelson Hemoglobin (Bld) [Mass/Vol] 12.7 g/dL Normal 12.0-16.0 [facility] Comment on above: Performed By: #### V ITAD #### [facility] [address] [place] [address] Dr. Garfield Nelson IG # 0.02 10e3/ul Normal 0.00-0.03 [facility] Comment on above: Performed By: #### V ITAD #### [facility] [address] [place] [address] Dr. Garfield Nelson IG % 0.2 % Normal 0.0-0.5 [facility] Comment on above: Performed By: #### V ITAD #### [facility] [address] [place] [address] Dr. Garfield Nelson LYMPH # 2.0 103/ul Normal 1.2-3.8 [facility] Comment on above: Performed By: #### V ITAD #### [facility] [address] [place] [address] Dr. Garfield Nelson Lymphocytes/100 WBC (Bld) 24.9 % Normal 20.5-60.0 [facility] Comment on above: Performed By: #### V ITAD #### [facility] [address] [place] [address] Dr. Garfield Nelson MANUAL DIFF REQ NO Normal [facility] Comment on above: Performed By: #### V ITAD #### [facility] [address] [place] [address] Dr. Garfield Nelson MCH (RBC) [Entitic mass] 28.5 pg Normal 26.7-34.0 [facility] Comment on above: Performed By: #### V ITAD #### [facility] [address] [place] [address] Dr. Garfield Nelson MCHC (RBC) [Mass/Vol] 32.5 g/dL Normal 29.9-35.2 [facility] Comment on above: Performed By: #### V ITAD #### [facility] [address] [place] [address] Dr. Garfield Nelson MCV (RBC) [Entitic vol] 87.7 fL Normal 81.0-99.0 [facility] Comment on above: Performed By: #### V ITAD #### [facility] [address] [place] [address] Dr. Garfield Nelson MONO # 1.0 103/ul Critically high 0.3-0.8 [facility] Comment on above: Performed By: #### V ITAD #### [facility] [address] [place] [address] Dr. Garfield Nelson Monocytes/100 WBC (Bld) 12.3 % Critically high 1.7-12.0 [facility] Comment on above: Performed By: #### V ITAD #### [facility] [address] [place] [address] Dr. Garfield Nelson NEUT # 4.9 103/ul Normal 1.4-6.5 [facility] Comment on above: Performed By: #### V ITAD #### [facility] [address] [place] [address] Dr. Garfield Nelson Neutrophils/100 WBC (Bld) 60.6 % Normal 43.0-75.0 [facility] Comment on above: Performed By: #### V ITAD #### [facility] [address] [place] [address] Dr. Garfield Nelson Platelet mean volume (Bld) [Entitic vol] 12.0 fL Normal 9.5-13.5 [facility] Comment on above: Performed By: #### V ITAD #### [facility] [address] [place] [address] Dr. Garfield Nelson PLT 247 103/ul Normal 150-450 [facility] Comment on above: Performed By: #### V ITAD #### [facility] [address] [place] [address] Dr. Garfield Nelson RBC 4.46 106/ul Normal 4.20-5.40 [facility] Comment on above: Performed By: #### V ITAD #### [facility] [address] [place] [address] Dr. Garfield Nelson WBC 8.1 103/ul Normal 4.0-11.0 [facility] Comment on above: Performed By: #### V ITAD #### [facility] [address] [place] [address] Dr. Garfield Nelson MAGNESIUMon 02-11-2022 Magnesium [Mass/Vol] 2.0 mg/dL Normal 1.8-2.4 [facility] Comment on above: Performed By: #### RAKESH Feng CMP #### [facility] [address] [place] [address] Dr. Garfield Nelson PHOSPHORUSon 02-11-2022 Phosphate [Mass/Vol] 3.6 mg/dL Normal 2.6-4.7 [facility] Comment on above: Performed By: #### RAKESH Feng CMP #### [facility] [address] [address] [address] Garfield Nelson PROF 14(COMP METB)on 022 Albumin [Mass/Vol] 3.8 g/dL Normal 3.4-5.[address] [facility] Comment on above: Performed By: #### M G, PHOS, CMP #### [facility] [address] [address] [address] Garfield Nelson Albumin/Globulin [Mass ratio] 1.0 {ratio} Normal [facility] Comment on above: Performed By: #### M G, PHOS, CMP #### [facility] [address] [address] [address] Garfield Nelson ALP [Catalytic activity/Vol] 69 U/L Normal 46-116 [facility] Comment on above: Performed By: #### M G, PHOS, CMP #### [facility] [address] [address] [address] Garfield Nelson ALT [Catalytic activity/Vol] 14 U/L Normal 14-59 [facility] Comment on above: Performed By: #### M G, PHOS, CMP #### [facility] [address] [address] [address] Garfield Nelson Anion gap [Moles/Vol] 12.4 mmol/L Normal [facility] Comment on above: Performed By: #### M G, PHOS, CMP #### [facility] [address] [address] [address] Garfield Nelson AST [Catalytic activity/Vol] 22 U/L Normal 15-37 [facility] Comment on above: Performed By: #### M G, PHOS, CMP #### [facility] [address] [address] [address] Garfield Nelson Bilirubin [Mass/Vol] 0.3 mg/dL Normal 0.2-1.0 [facility] Comment on above: Performed By: #### M G, PHOS, CMP #### [facility] [address] [address] [address] Garfield Nelson Calcium [Mass/Vol] 8.6 mg/dL Normal 8.5-10.[address] [facility] Comment on above: Performed By: #### RAKESH Feng, CMP #### [facility] [address] [place] [address] Dr. Garfield Nelson Chloride [Moles/Vol] 101 mmol/L Normal 98-107 [facility] Comment on above: Performed By: #### DAVID FengS, CMP #### [facility] [address] [place] [address] Dr. Garfield Nelson CO2 [Moles/Vol] 29.4 mmol/L Normal 21.0-32.0 [facility] Comment on above: Performed By: #### RAKESH Feng, CMP #### [facility] [address] [place] [address] Dr. Garfield Nelson Creatinine [Mass/Vol] 0.79 mg/dL Normal 0.55-1.02 [facility] Comment on above: Performed By: #### RAKESH Feng, CMP #### [facility] [address] [place] [address] Dr. Garfield Nelson EGFR-AF [place] ISLANDER >60 Normal >=60 [facility] Comment on above: Performed By: #### RAKESH Feng, CMP #### [facility] [address] [place] [address] Dr. Garfield Nelson EGFR-NON AF [place]ER >60 Normal >=60 [facility] Comment on above: Performed By: #### RAKESH Feng, CMP #### [facility] [address] [place] [address] Dr. Garfield Nelson Globulin (S) [Mass/Vol] 3.9 g/dL Normal [facility] Comment on above: Performed By: #### RAKESH Feng, CMP #### [facility] [address] [place] [address] Dr. Garfield Nelson Glucose [Mass/Vol] 109 mg/dL Critically high 74-106 [facility] Comment on above: Performed By: #### DAVID FengS, CMP #### [facility] [address] [place] [address] Dr. Garfield Nelson Potassium [Moles/Vol] 3.8 mmol/L Normal 3.5-5.1 [facility] Comment on above: Performed By: #### M RAKESH Dougherty CMP #### [facility] [address] [address] [address] Garfield Nelson Protein [Mass/Vol] 7.7 g/dL Normal 6.4-8.2 [facility] Comment on above: Performed By: #### RAKESH Feng, CMP #### [facility] [address] [address] [address] Garfield Nelson Sodium [Moles/Vol] 139 mmol/L Normal 136-145 [facility] Comment on above: Performed By: #### RAKESH Feng, CMP #### [facility] [address] [place] [address] Dr. Garfield Nelson Urea nitrogen [Mass/Vol] 17.0 mg/dL Normal 7.0-18.0 [facility] Comment on above: Performed By: #### RAKESH Feng, CMP #### [facility] [address] [place] [address] Dr. Garfield Nelson Urea nitrogen/Creatinine [Mass ratio] 21.5 mg/mg Normal [facility] Comment on above: Performed By: #### RAKESH Feng, CMP #### [facility] [address] [place] [address] Dr. Garfield Nelson SED RATE [facility] 2021 SED RATE 40 mm/hr Critically high <=30 [facility] Comment on above: Performed By: #### C SUITE #### [facility] [address] [place] [address] Dr. Garfield Nelson UA RANDOM W/MICROSCOPICon BACTERIA NONE SEEN Normal NONE SEEN [facility] Comment on above: Performed By: #### C SUITE #### [facility] [address] [place] [address] Dr. Garfield Neslon Bilirubin Ql (U) Negative Normal NEGATIVE [facility] Comment on above: Performed By: #### C SUITE #### [facility] [address] [place] [address] Dr. Garfield Nelson CAST NONE SEEN Normal NONE SEEN [facility] Comment on above: Performed By: #### C SUITE #### [facility] [address] [place] [address] Dr. Garfield Nelson Clarity (U) CLEAR Normal CLEAR [facility] Comment on above: Performed By: #### C SUITE #### [facility] [address] [place] [address] Dr. Garfield Nelson Color (U) LT. YELLOW Normal YELLOW [facility] Comment on above: Performed By: #### C SUITE #### [facility] [address] [place] [address] Dr. Garfield Nelson Crystals LM Nom (Urine sed) NONE SEEN Normal NONE SEEN [facility] Comment on above: Performed By: #### C SUITE #### [facility] [address] [place] [address] Dr. Garfield Nelson Epithelial cells LM Ql (Urine sed) NONE SEEN Normal NONE SEEN /RARE [facility] Comment on above: Performed By: #### C SUITE #### [facility] [address] [place] [address] Dr. Garfield Nelson Glucose Ql (U) Negative Normal NEGATIVE [facility] Comment on above: Performed By: #### C SUITE #### [facility] [address] [place] [address] Dr. Garfield Nelson Hemoglobin Ql (U) Negative Normal NEGATIVE [facility] Comment on above: Performed By: #### C SUITE #### [facility] [address] [place] [address] Dr. Garfield Nelson Ketones Ql (U) Negative Normal NEGATIVE [facility] Comment on above: Performed By: #### C SUITE #### [facility] [address] [place] [address] Dr. Garfield Nelson LEUKOCYTES Negative Normal NEGATIVE [facility] Comment on above: Performed By: #### C SUITE #### [facility] [address] [place] [address] Dr. Garfield Nelson MUCOUS NONE SEEN Normal NONE SEEN [facility] Comment on above: Performed By: #### C SUITE #### [facility] [address] [place] [address] Dr. Garfield Nelson Nitrite Ql (U) Negative Normal NEGATIVE [facility] Comment on above: Performed By: #### C SUITE #### [facility] [address] [place] [address] Dr. Garfield Nelson pH (U) 6.0 [pH] Normal 5-9 [facility] Comment on above: Performed By: #### C SUITE #### [facility] [address] [place] [address] Dr. Garfield Nelson RBC 0-2 Normal 0-2 [facility] Comment on above: Performed By: #### C SUITE #### [facility] [address] [place] [address] Dr. Garfield Nelson SPEC GRAVITY 1.025 Normal 1.005-<=1.025 [facility] Comment on above: Performed By: #### C SUITE #### [facility] [address] [place] [address] Dr. Garfield Nelson UA PROTEIN Negative Normal NEGATIVE/ TRACE [facility] Comment on above: Performed By: #### C SUITE #### [facility] [address] [place] [address] Dr. Garfield Nelson Urobilinogen Qn (U) 0.2 {Marquise'U}/dL Normal 0.2 - 1. 0 [facility] Comment on above: Performed By: #### C SUITE #### [facility] [address] [place] [address] Dr. Garfield eNlson WBC NONE SEEN Normal NONE SEEN [facility] Comment on above: Performed By: #### C SUITE #### [facility] [address] [place] [address] Dr. Garfield Nelson [facility] echo transthoracicon [facility] echo transthoracic [facility] [place] [address] [place] [address] Echocardiogram Signed Patient: Sierra Alberts MR#: [id number] : 1965 Acct:[id number] Age/Sex: 56 / F ADM Date: 01/02/22 Loc: Room: Type: [facility] Attending Dr: Patricia SALEH Ordering Provider: THERESE Shaw Date of Service: 01/02/22/ [facility] echo transthoracic: Pulmonary fibrosis. PHTN. SOB. detention drug therapy. Copies to: Mayte Way MD, [facility] BSA: 1.5 m2 BP: 115/83 mmHg HR: 75 Reason For Study: Pulmonary fibrosis. PHTN. SOB. detention drug therapy. History: pulmonary hypertension Interpretation Summary [...] 01/02/22 1254 Signed By: Mayte Way MD, [facility] 01/02/22 1417 [facility] PAP ACOG PANEL 2: 30 to 65on 12-23-2021 . . Normal [facility] Comment on above: Result Comment: Perf ormed at: WB Performed By: #### M Farhat, PHOS, CMP #### [facility] [address] [address] [address] Garfield Nelson Age Gdln ACOG Testing 30-65 [facility] Comment on above: Performed By: #### M Farhat, PHOS, CMP #### [facility] [address] [address] [address] Garfield Nelson DIAGNOSIS: Comment Normal [facility] Comment on above: Result Comment: NEGA TIVE FOR INTRAEPITHELIAL LESION OR MALIGNANCY. CELLULAR CHANGES ASSOCIATED WITH ATROPHY ARE PRESENT. Performed at: WB Performed By: #### M Farhat PHOS, CMP #### [facility] [address] [address] [address] Garfield Nelson HPV Aptima Negative Normal [facility] Comment on above: Result Comment: This nucleic acid amplification test detects fourteen high-risk HPV types (16,18,31,33,35,39,45,51,52,56,58,59,66,68) without differentiation. Performed at: =G Performed By: #### M Farhat, PHOS, CMP #### [facility] [address] [address] [address] Garfield Nelson Methodology: Comment Normal [facility] Comment on above: Result Comment: This liquid based ThinPrep(R) pap test was screened with the use of an image guided system. Performed at: WB Performed By: #### M G, PHOS, CMP #### [facility] [address] [address] [address] Garfield Nelson Note: Comment Normal [facility] Comment on above: Result Comment: The Pap [...] By: #### M RAKESH Dougherty, CMP #### [facility] [address] [place] [address] Dr. Garfield Nelson Performed by: Comment Normal [facility] Comment on above: Result Comment: Dinesh Noble, Geriatric Nursing Assistant (ASCP) Performed at: WB Performed By: #### RAKESH Feng, CMP #### [facility] [address] [place] [address] Dr. Garfield Nelson Specimen adequacy: Comment Normal [facility] Comment on above: Result Comment: Sati sfactory for evaluation. Endocervical component may not be distinguished in cases of atrophy. Performed at: WB Performed By: #### M RAKESH Dougherty, CMP #### [facility] [address] [place] [address] Dr. Garfield Nelson CBC AUTO DIFFon 12-17-2021 BASO # 0.0 103/ul Normal 0.0-0.1 [facility] Comment on above: Performed By: #### V ITAD #### [facility] [address] [place] [address] Dr. Garfield Nelson Basophils/100 WBC (Bld) 0.6 % Normal 0.2-2.0 [facility] Comment on above: Performed By: #### V ITAD #### [facility] [address] [place] [address] Dr. Garfield Nelson EO # 0.2 103/ul Normal 0.0-0.7 [facility] Comment on above: Performed By: #### V ITAD #### [facility] [address] [place] [address] Dr. Garfield Nelson Eosinophils/100 WBC (Bld) 2.8 % Normal 0.9-7.0 [facility] Comment on above: Performed By: #### V ITAD #### [facility] [address] [place] [address] Dr. Garfield Nelson Erythrocyte distribution width (RBC) [Ratio] 14.0 % Normal 11.0-15.0 [facility] Comment on above: Performed By: #### V ITAD #### [facility] [address] [place] [address] Dr. Garfield Nelson Hematocrit (Bld) [Volume fraction] 42.3 % Normal 36.0-48.0 [facility] Comment on above: Performed By: #### V ITAD #### [facility] [address] [place] [address] Dr. Garfield Nelson Hemoglobin (Bld) [Mass/Vol] 13.3 g/dL Normal 12.0-16.0 [facility] Comment on above: Performed By: #### V ITAD #### [facility] [address] [place] [address] Dr. Garfield Nelson IG # 0.02 10e3/ul Normal 0.00-0.03 [facility] Comment on above: Performed By: #### V ITAD #### [facility] [address] [place] [address] Dr. Garfield Nelson IG % 0.3 % Normal 0.0-0.5 [facility] Comment on above: Performed By: #### V ITAD #### [facility] [address] [place] [address] Dr. Garfield Nelson LYMPH # 1.9 103/ul Normal 1.2-3.8 [facility] Comment on above: Performed By: #### V ITAD #### [facility] [address] [place] [address] Dr. Garfield Nelson Lymphocytes/100 WBC (Bld) 30.0 % Normal 20.5-60.0 [facility] Comment on above: Performed By: #### V ITAD #### [facility] [address] [place] [address] Dr. Garfield Nelson MANUAL DIFF REQ NO Normal [facility] Comment on above: Performed By: #### V ITAD #### [facility] [address] [address] [address] Garfield Nelson MCH (RBC) [Entitic mass] 28.5 pg Normal 26.7-34.0 [facility] Comment on above: Performed By: #### V ITAD #### [facility] [address] [place] [address] Dr. Garfield Nelson MCHC (RBC) [Mass/Vol] 31.4 g/dL Normal 29.9-35.2 [facility] Comment on above: Performed By: #### V ITAD #### [facility] [address] [place] [address] Dr. Garfield Nelson MCV (RBC) [Entitic vol] 90.8 fL Normal 81.0-99.0 [facility] Comment on above: Performed By: #### V ITAD #### [facility] [address] [place] [address] Dr. Garfield Nelson MONO # 0.9 103/ul Critically high 0.3-0.8 [facility] Comment on above: Performed By: #### V ITAD #### [facility] [address] [place] [address] Dr. Garfield Nelson Monocytes/100 WBC (Bld) 13.4 % Critically high 1.7-12.0 [facility] Comment on above: Performed By: #### V ITAD #### [facility] [address] [place] [address] Dr. Garfield Nelson NEUT # 3.4 103/ul Normal 1.4-6.5 [facility] Comment on above: Performed By: #### V ITAD #### [facility] [address] [place] [address] Dr. Garfield Nelson Neutrophils/100 WBC (Bld) 52.9 % Normal 43.0-75.0 [facility] Comment on above: Performed By: #### V ITAD #### [facility] [address] [place] [address] Dr. Garfield Nelson Platelet mean volume (Bld) [Entitic vol] 12.2 fL Normal 9.5-13.5 [facility] Comment on above: Performed By: #### V ITAD #### [facility] [address] [address] [address] Garfield Nelson PLT 258 103/ul Normal 150-450 [facility] Comment on above: Performed By: #### V ITAD #### [facility] [address] [address] [address] Garfield Nelson RBC 4.66 106/ul Normal 4.20-5.40 [facility] Comment on above: Performed By: #### V ITAD #### [facility] [address] [address] [address] Garfield Nelson WBC 6.3 103/ul Normal 4.0-11.0 [facility] Comment on above: Performed By: #### V ITAD #### [facility] [address] [place] [address] Dr. Garfield Nelson LIPID PROFILEon 12-17-2021 CHOL-HDL RATIO NORM SEE BELOW Normal [facility] Comment on above: Result Comment: 3.3 - 4.4 LOW RISK 4.4 - 7.1 AVERAGE RISK 7.1 - 11.0 MODERATE RISK >11.0 HIGH RISK Performed By: #### RAKESH Feng, CMP #### [facility] [address] [place] [address] Dr. Garfield Nelson Cholesterol [Mass/Vol] 204 mg/dL Critically high <=200 [facility] Comment on above: Performed By: #### DAVID FengS, CMP #### [facility] [address] [address] [address] Garfield Nelson Cholesterol in HDL [Mass/Vol] 75 mg/dL Critically high 40-60 [facility] Comment on above: Performed By: #### DAVID FengS, CMP #### [facility] [address] [place] [address] Dr. Garfield Nelson Cholesterol in LDL [Mass/Vol] 121.0 mg/dL Normal [facility] Comment on above: Performed By: #### Sekou Dougherty PHOS, CMP #### [facility] [address] [address] [address] Garfield Nelson Cholesterol.total/Ch olesterol in HDL [Mass ratio] 2.7 {ratio} Normal [facility] Comment on above: Performed By: #### DAVID FengS, CMP #### [facility] [address] [address] [address] Garfield Nelson HDL NORMAL > or = 60 mg/dl - LO W CARDIOVASCULAR RISK <40 mg/dl - HIGH CARDIOVASCULAR RISK Normal [facility] Comment on above: Performed By: #### Sekou Dougherty PHOS, CMP #### [facility] [address] [address] [address] Garfield Nelson LDL CALC NORMAL SEE BELOW Normal [facility] Comment on above: Result Comment: <100 mg/dl OPTIMAL 100 - 129 mg/dl NEAR OR ABOVE OPTIMAL 130 - 159 mg/dl BORDERLINE HIGH 160 - 189 mg/dl HIGH >190 mg/dl VERY HIGH Performed By: #### DAVID FengS, CMP #### [facility] [address] [address] [address] Garfield Nelson Triglyceride [Mass/Vol] 40 mg/dL Normal <=150 [facility] Comment on above: Performed By: #### RAKESH Feng, CMP #### [facility] [address] [address] [address] Garfield Nelson VLDL CALC 8.0 mg/dL Normal [facility] Comment on above: Performed By: #### RAKESH Feng, CMP #### [facility] [address] [address] [address] Garfield Nelson PROF 14(COMP METB)on 022 Albumin [Mass/Vol] 3.8 g/dL Normal 3.4-5.[address] [facility] Comment on above: Performed By: #### RAKESH Feng, CMP #### [facility] [address] [place] [address] Dr. Garfield Nelson Albumin/Globulin [Mass ratio] 0.9 {ratio} Normal [facility] Comment on above: Performed By: #### Sekou Dougherty PHOS, CMP #### [facility] [address] [address] [address] Garfield Nelson ALP [Catalytic activity/Vol] 65 U/L Normal 46-116 [facility] Comment on above: Performed By: #### M DAVID DoughertyS, CMP #### [facility] [address] [place] [address] Dr. Garfield Nelson ALT [Catalytic activity/Vol] 19 U/L Normal 14-59 [facility] Comment on above: Performed By: #### M Farhat PHOS, CMP #### [facility] [address] [place] [address] Dr. Garfield Nelson Anion gap [Moles/Vol] 10.6 mmol/L Normal [facility] Comment on above: Performed By: #### DAVID FengS, CMP #### [facility] [address] [place] [address] Dr. Garfield Nelson AST [Catalytic activity/Vol] 18 U/L Normal 15-37 [facility] Comment on above: Performed By: #### DAVID FengS, CMP #### [facility] [address] [place] [address] Dr. Garfield Nelson Bilirubin [Mass/Vol] 0.5 mg/dL Normal 0.2-1.0 [facility] Comment on above: Performed By: #### RAKESH Feng, CMP #### [facility] [address] [place] [address] Dr. Garfield Nelson Calcium [Mass/Vol] 8.9 mg/dL Normal 8.5-10.[address] [facility] Comment on above: Performed By: #### Sekou Dougherty PHOS, CMP #### [facility] [address] [place] [address] Dr. Garfield Nelson Chloride [Moles/Vol] 106 mmol/L Normal 98-107 [facility] Comment on above: Performed By: #### Sekou Dougherty PHOS, CMP #### [facility] [address] [place] [address] Dr. Garfield Nelson CO2 [Moles/Vol] 28.6 mmol/L Normal 21.0-32.0 [facility] Comment on above: Performed By: #### Sekou Dougherty PHOS, CMP #### [facility] [address] [address] [address] Garfield Nelson Creatinine [Mass/Vol] 0.88 mg/dL Normal 0.55-1.02 [facility] Comment on above: Performed By: #### RAKESH Feng, CMP #### [facility] [address] [address] [address] Garfield Nelson EGFR-AF [place] ISLANDER >60 Normal >=60 [facility] Comment on above: Performed By: #### RAKESH Feng, CMP #### [facility] [address] [address] [address] Garfield Nelson EGFR-NON AF [place] IS[place]ER >60 Normal >=60 [facility] Comment on above: Performed By: #### RAKESH Feng, CMP #### [facility] [address] [place] [address] Dr. Garfield Nelson Globulin (S) [Mass/Vol] 4.1 g/dL Normal [facility] Comment on above: Performed By: #### RAKESH Feng, CMP #### [facility] [address] [address] [address] Garfield Nelson Glucose [Mass/Vol] 93 mg/dL Normal 74-106 [facility] Comment on above: Performed By: #### RAKESH Feng, CMP #### [facility] [address] [address] [address] Garfield Nelson Potassium [Moles/Vol] 4.2 mmol/L Normal 3.5-5.1 [facility] Comment on above: Performed By: #### RAKESH Feng, CMP #### [facility] [address] [address] [address] Garfield Nelson Protein [Mass/Vol] 7.9 g/dL Normal 6.4-8.2 [facility] Comment on above: Performed By: #### DAVID FengS, CMP #### [facility] [address] [address] [address] Garfield Nelson Sodium [Moles/Vol] 141 mmol/L Normal 136-145 [facility] Comment on above: Performed By: #### RAKESH Feng, CMP #### [facility] [address] [place] [address] Dr. Garfield Nelson Urea nitrogen [Mass/Vol] 22.0 mg/dL Critically high 7.0-18.0 [facility] Comment on above: Performed By: #### RAKESH Feng, CMP #### [facility] [address] [place] [address] Dr. Garfield Nelson Urea nitrogen/Creatinine [Mass ratio] 25.0 mg/mg Normal [facility] Comment on above: Performed By: #### RAKESH Feng CMP #### [facility] [address] [place] [address] Dr. Garfield Nelson TSHon 12-17-2021 TSH 2.939 uIU/mL Normal 0.358-3.740 [facility] Comment on above: Performed By: #### RAKESH Feng CMP #### [facility] [address] [place] [address] Dr. Garfield Nelson VITAMIN D 25 OHon 12-17-2021 VIT D 25-OH 34.5 ng/mL Normal [facility] Comment on above: Performed By: #### V ITAD #### [facility] [address] [place] [address] Dr. Garfield Nelson VIT D RANGES SEE BELOW Normal [facility] Comment on above: Result Comment: <20 ng/mL Vit D deficient 20 - <30 ng/mL Vit D insufficient 30 - 100 ng/mL Vit D sufficient >100 ng/mL Potential Toxicity Performed By: #### V ITAD #### [facility] [address] [place] [address] Dr. Garfield Nelson C3 and C4 COMPLEMENTon 11-14 Complement C3, Serum 109 mg/dL Normal 82-167 [facility] Comment on above: Performed By: #### C SUITE #### [facility] [address] [place] [address] Dr. Garfield Nelson Complement C4, Serum 19 mg/dL Normal 12-38 [facility] Comment on above: Performed By: #### C SUITE #### [facility] [address] [address] [address] Garfield Nelson MG MAMM SCREEN 3D PATRICA CADon 11-14-2021 MG MAMM SCREEN 3D PATRICA CAD Patient: SIERRA ALBERTS Exam Date: 11/14/2021 : 1965 Gender:F Ordering : DR JUDITH MARTINEZ . Admission #: [id number] Family : Order #: [id number] CLICK HERE TO VIEW EXAM RADIOLOGY REPORT [...] breast cancer at age 60. LOCATION: [facility] BREAST COMPOSITION: Extremely dense, which lowers the [...] MD on 11/14/2021 at 12:25 Normal [facility] COMPLEMENT TOTAL (CH50)on Complement, Total (CH50) >60 Normal >41 [facility] Comment on above: Result Comment: Age [...] values. Performed By: #### C H50T #### [facility] [address] [address] [address] Garfield Nelson CBC AUTO DIFFon 11-12-2021 BASO # 0.1 103/ul Normal 0.0-0.1 [facility] Comment on above: Performed By: #### C SUITE #### [facility] [address] [place] [address] Dr. Garfield Nelson Basophils/100 WBC (Bld) 0.7 % Normal 0.2-2.0 [facility] Comment on above: Performed By: #### C SUITE #### [facility] [address] [place] [address] Dr. Garfield Nelson EO # 0.2 103/ul Normal 0.0-0.7 [facility] Comment on above: Performed By: #### C SUITE #### [facility] [address] [place] [address] Dr. Garfield Nelson Eosinophils/100 WBC (Bld) 2.6 % Normal 0.9-7.0 [facility] Comment on above: Performed By: #### C SUITE #### [facility] [address] [place] [address] Dr. Garfield Nelson Erythrocyte distribution width (RBC) [Ratio] 14.1 % Normal 11.0-15.0 [facility] Comment on above: Performed By: #### C SUITE #### [facility] [address] [place] [address] Dr. Garfield Nelson Hematocrit (Bld) [Volume fraction] 42.2 % Normal 36.0-48.0 [facility] Comment on above: Performed By: #### C SUITE #### [facility] [address] [place] [address] Dr. Garfield Nelson Hemoglobin (Bld) [Mass/Vol] 13.2 g/dL Normal 12.0-16.0 [facility] Comment on above: Performed By: #### C SUITE #### [facility] [address] [place] [address] Dr. Garfield Nelson IG # 0.02 10e3/ul Normal 0.00-0.03 [facility] Comment on above: Performed By: #### C SUITE #### [facility] [address] [place] [address] Dr. Garfield Nelson IG % 0.3 % Normal 0.0-0.5 [facility] Comment on above: Performed By: #### C SUITE #### [facility] [address] [place] [address] Dr. Garfield Nelson LYMPH # 2.1 103/ul Normal 1.2-3.8 [facility] Comment on above: Performed By: #### C SUITE #### [facility] [address] [place] [address] Dr. Garfield Nelson Lymphocytes/100 WBC (Bld) 28.2 % Normal 20.5-60.0 [facility] Comment on above: Performed By: #### C SUITE #### [facility] [address] [place] [address] Dr. Garfield Nelson MANUAL DIFF REQ NO Normal [facility] Comment on above: Performed By: #### C SUITE #### [facility] [address] [place] [address] Dr. Garfield Nelson MCH (RBC) [Entitic mass] 28.3 pg Normal 26.7-34.0 [facility] Comment on above: Performed By: #### C SUITE #### [facility] [address] [place] [address] Dr. Garfield Nelson MCHC (RBC) [Mass/Vol] 31.3 g/dL Normal 29.9-35.2 [facility] Comment on above: Performed By: #### C SUITE #### [facility] [address] [place] [address] Dr. Garfield Nelson MCV (RBC) [Entitic vol] 90.6 fL Normal 81.0-99.0 [facility] Comment on above: Performed By: #### C SUITE #### [facility] [address] [place] [address] Dr. Garfield Nelson MONO # 1.0 103/ul Critically high 0.3-0.8 [facility] Comment on above: Performed By: #### C SUITE #### [facility] [address] [place] [address] Dr. Garfield Nelson Monocytes/100 WBC (Bld) 13.9 % Critically high 1.7-12.0 [facility] Comment on above: Performed By: #### C SUITE #### [facility] [address] [place] [address] Dr. Garfield Nelson NEUT # 4.0 103/ul Normal 1.4-6.5 [facility] Comment on above: Performed By: #### C SUITE #### [facility] [address] [place] [address] Dr. Garfield Nelson Neutrophils/100 WBC (Bld) 54.3 % Normal 43.0-75.0 [facility] Comment on above: Performed By: #### C SUITE #### [facility] [address] [place] [address] Dr. Garfield Nelson Platelet mean volume (Bld) [Entitic vol] 12.3 fL Normal 9.5-13.5 [facility] Comment on above: Performed By: #### C SUITE #### [facility] [address] [place] [address] Dr. Garfield Nelson PLT 256 103/ul Normal 150-450 [facility] Comment on above: Performed By: #### C SUITE #### [facility] [address] [place] [address] Dr. Garfield Nelson RBC 4.66 106/ul Normal 4.20-5.40 [facility] Comment on above: Performed By: #### C SUITE #### [facility] [address] [place] [address] Dr. Garfield Nelson WBC 7.4 103/ul Normal 4.0-11.0 [facility] Comment on above: Performed By: #### C SUITE #### [facility] [address] [place] [address] Dr. Garfield Nelson MAGNESIUMon 11-12-2021 Magnesium [Mass/Vol] 2.0 mg/dL Normal 1.8-2.4 [facility] Comment on above: Performed By: #### M G, PHOS, CMP #### [facility] [address] [place] [address] Dr. Garfield Nelson PHOSPHORUSon 11-12-2021 Phosphate [Mass/Vol] 3.4 mg/dL Normal 2.6-4.7 [facility] Comment on above: Performed By: #### RAKESH Feng, CMP #### [facility] [address] [address] [address] Garfield Nelson PROF 14(COMP METB)on 022 Albumin [Mass/Vol] 3.9 g/dL Normal 3.4-5.[address] [facility] Comment on above: Performed By: #### RAKESH Feng, CMP #### [facility] [address] [address] [address] Garfield Nelson Albumin/Globulin [Mass ratio] 1.0 {ratio} Normal [facility] Comment on above: Performed By: #### RAKESH Feng, CMP #### [facility] [address] [place] [address] Dr. Garfield Nelson ALP [Catalytic activity/Vol] 68 U/L Normal 46-116 [facility] Comment on above: Performed By: #### RAKESH Feng, CMP #### [facility] [address] [place] [address] Dr. Garfield Nelson ALT [Catalytic activity/Vol] 16 U/L Normal 14-59 [facility] Comment on above: Performed By: #### RAKESH Feng, CMP #### [facility] [address] [place] [address] Dr. Garfield Nelson Anion gap [Moles/Vol] 9.7 mmol/L Normal [facility] Comment on above: Performed By: #### RAKESH Feng, CMP #### [facility] [address] [place] [address] Dr. Garfield Nelson AST [Catalytic activity/Vol] 17 U/L Normal 15-37 [facility] Comment on above: Performed By: #### RAKESH Feng, CMP #### [facility] [address] [place] [address] Dr. Garfield Nelson Bilirubin [Mass/Vol] 0.4 mg/dL Normal 0.2-1.0 [facility] Comment on above: Performed By: #### RAKESH Feng, CMP #### [facility] [address] [address] [address] Garfield Nelson Calcium [Mass/Vol] 9.0 mg/dL Normal 8.5-10.[address] [facility] Comment on above: Performed By: #### M G, PHOS, CMP #### [facility] [address] [address] [address] Garfield Nelson Chloride [Moles/Vol] 103 mmol/L Normal 98-107 [facility] Comment on above: Performed By: #### M G, PHOS, CMP #### [facility] [address] [address] [address] Garfield Nelson CO2 [Moles/Vol] 30.2 mmol/L Normal 21.0-32.0 [facility] Comment on above: Performed By: #### M G, PHOS, CMP #### [facility] [address] [address] [address] Garfield Nelson Creatinine [Mass/Vol] 0.92 mg/dL Normal 0.55-1.02 [facility] Comment on above: Performed By: #### M G, PHOS, CMP #### [facility] [address] [place] [address] Dr. Garfield Nelson EGFR-AF [place] >60 Normal >=60 [facility] Comment on above: Performed By: #### M G, PHOS, CMP #### [facility] [address] [address] [address] Garfield Nelson EGFR-NON AF [place] >60 Normal >=60 [facility] Comment on above: Performed By: #### M G, PHOS, CMP #### [facility] [address] [address] [address] Garfield Nelson Globulin (S) [Mass/Vol] 3.8 g/dL Normal [facility] Comment on above: Performed By: #### M G, PHOS, CMP #### [facility] [address] [address] [address] Garfield Nelson Glucose [Mass/Vol] 101 mg/dL Normal 74-106 [facility] Comment on above: Performed By: #### M RAKESH Dougherty, CMP #### [facility] [address] [address] [address] Garfield Nelson Potassium [Moles/Vol] 3.9 mmol/L Normal 3.5-5.1 [facility] Comment on above: Performed By: #### RAKESH Feng, CMP #### [facility] [address] [address] [address] Garfield Nelson Protein [Mass/Vol] 7.7 g/dL Normal 6.4-8.2 [facility] Comment on above: Performed By: #### RAKESH Feng, CMP #### [facility] [address] [place] [address] Dr. Garfield Nelson Sodium [Moles/Vol] 139 mmol/L Normal 136-145 [facility] Comment on above: Performed By: #### RAKESH Feng, CMP #### [facility] [address] [place] [address] Dr. Garfield Nelson Urea nitrogen [Mass/Vol] 16.0 mg/dL Normal 7.0-18.0 [facility] Comment on above: Performed By: #### RAKESH Feng, CMP #### [facility] [address] [place] [address] Dr. Garfield Nelson Urea nitrogen/Creatinine [Mass ratio] 17.4 mg/mg Normal [facility] Comment on above: Performed By: #### RAKESH Feng, CMP #### [facility] [address] [place] [address] Dr. Garfield Nelson SED RATE WESTERGRENon 2021 SED RATE 58 mm/hr Critically high <=30 [facility] Comment on above: Performed By: #### C SUITE #### [facility] [address] [place] [address] Dr. Garfield Nelson UA RANDOM W/MICROSCOPICon BACTERIA NONE SEEN Normal NONE SEEN [facility] Comment on above: Performed By: #### V ITAD #### [facility] [address] [place] [address] Dr. Garfield Nelson Bilirubin Ql (U) Negative Normal NEGATIVE [facility] Comment on above: Performed By: #### V ITAD #### [facility] [address] [place] [address] Dr. Garfield Nelson CAST NONE SEEN Normal NONE SEEN [facility] Comment on above: Performed By: #### V ITAD #### [facility] [address] [place] [address] Dr. Garfield Nelson Clarity (U) CLEAR Normal CLEAR [facility] Comment on above: Performed By: #### V ITAD #### [facility] [address] [place] [address] Dr. Garfield Nelson Color (U) LT. YELLOW Normal YELLOW [facility] Comment on above: Performed By: #### V ITAD #### [facility] [address] [place] [address] Dr. Garfield Nelson Crystals LM Nom (Urine sed) NONE SEEN Normal NONE SEEN [facility] Comment on above: Performed By: #### V ITAD #### [facility] [address] [place] [address] Dr. Garfield Nelson Epithelial cells LM Ql (Urine sed) NONE SEEN Normal NONE SEEN /RARE [facility] Comment on above: Performed By: #### V ITAD #### [facility] [address] [place] [address] Dr. Garfield Nelson Glucose Ql (U) Negative Normal NEGATIVE [facility] Comment on above: Performed By: #### V ITAD #### [facility] [address] [place] [address] Dr. Garfield Nelson Hemoglobin Ql (U) Negative Normal NEGATIVE [facility] Comment on above: Performed By: #### V ITAD #### [facility] [address] [place] [address] Dr. Garfield Nelson Ketones Ql (U) Negative Normal NEGATIVE [facility] Comment on above: Performed By: #### V ITAD #### [facility] [address] [place] [address] Dr. Garfield Nelson LEUKOCYTES Negative Normal NEGATIVE [facility] Comment on above: Performed By: #### V ITAD #### [facility] [address] [place] [address] Dr. Garfield Nelson MUCOUS NONE SEEN Normal NONE SEEN [facility] Comment on above: Performed By: #### V ITAD #### [facility] [address] [place] [address] Dr. Garfield Nelson Nitrite Ql (U) Negative Normal NEGATIVE [facility] Comment on above: Performed By: #### V ITAD #### [facility] [address] [place] [address] Dr. Garfield Nelson pH (U) 6.0 [pH] Normal 5-9 [facility] Comment on above: Performed By: #### V ITAD #### [facility] [address] [place] [address] Dr. Garfield Nelson RBC 0-2 Normal 0-2 [facility] Comment on above: Performed By: #### V ITAD #### [facility] [address] [place] [address] Dr. Garfield Nelson SPEC GRAVITY 1.020 Normal 1.005-<=1.025 [facility] Comment on above: Performed By: #### V ITAD #### [facility] [address] [place] [address] Dr. Garfield Nelson UA PROTEIN Negative Normal NEGATIVE/ TRACE [facility] Comment on above: Performed By: #### V ITAD #### [facility] [address] [place] [address] Dr. Garfield Nelson Urobilinogen Qn (U) 0.2 {Marquise'U}/dL Normal 0.2 - 1. 0 [facility] Comment on above: Performed By: #### V ITAD #### [facility] [address] [place] [address] Dr. Garfield Nelson WBC NONE SEEN Normal NONE SEEN [facility] Comment on above: Performed By: #### V ITAD #### [facility] [address] [place] [address] Dr. Garfield Nelson C3 and C4 COMPLEMENTon 08-08 Complement C3, Serum 131 mg/dL Normal 82-167 [facility] Comment on above: Performed By: #### C SUITE #### [facility] [address] [place] [address] Dr. Garfield Nelson Complement C4, Serum 18 mg/dL Normal 12-38 [facility] Comment on above: Performed By: #### C SUITE #### [facility] [address] [place] [address] Dr. Garfield Nelson COMPLEMENT TOTAL (CH50)on Complement, Total (CH50) >60 Normal >41 [facility] Comment on above: Result Comment: Age [...] By: #### M RAKESH Dougherty, CMP #### [facility] [address] [place] [address] Dr. Garfield Nelson CBC AUTO DIFFon 08-07-2021 BASO # 0.1 103/ul Normal 0.0-0.1 [facility] Comment on above: Performed By: #### V ITAD #### [facility] [address] [place] [address] Dr. Garfield Nelson Basophils/100 WBC (Bld) 0.6 % Normal 0.2-2.0 [facility] Comment on above: Performed By: #### V ITAD #### [facility] [address] [place] [address] Dr. Garfield Nelson EO # 0.1 103/ul Normal 0.0-0.7 [facility] Comment on above: Performed By: #### V ITAD #### [facility] [address] [place] [address] Dr. Garfield Nelson Eosinophils/100 WBC (Bld) 1.1 % Normal 0.9-7.0 [facility] Comment on above: Performed By: #### V ITAD #### [facility] [address] [place] [address] Dr. Garfield Nelson Erythrocyte distribution width (RBC) [Ratio] 14.5 % Normal 11.0-15.0 [facility] Comment on above: Performed By: #### V ITAD #### [facility] [address] [place] [address] Dr. Garfield Nelson Hematocrit (Bld) [Volume fraction] 40.6 % Normal 36.0-48.0 [facility] Comment on above: Performed By: #### V ITAD #### [facility] [address] [place] [address] Dr. Garfield Nelson Hemoglobin (Bld) [Mass/Vol] 12.8 g/dL Normal 12.0-16.0 [facility] Comment on above: Performed By: #### V ITAD #### [facility] [address] [place] [address] Dr. Garfield Nelson IG # 0.02 10e3/ul Normal 0.00-0.03 [facility] Comment on above: Performed By: #### V ITAD #### [facility] [address] [place] [address] Dr. Garfield Nelson IG % 0.2 % Normal 0.0-0.5 [facility] Comment on above: Performed By: #### V ITAD #### [facility] [address] [place] [address] Dr. Garfield Nelson LYMPH # 1.7 103/ul Normal 1.2-3.8 [facility] Comment on above: Performed By: #### V ITAD #### [facility] [address] [place] [address] Dr. Garfield Nelson Lymphocytes/100 WBC (Bld) 20.0 % Critically low 20.5-60.0 [facility] Comment on above: Performed By: #### V ITAD #### [facility] [address] [place] [address] Dr. Garfield Nelson MANUAL DIFF REQ NO Normal [facility] Comment on above: Performed By: #### V ITAD #### [facility] [address] [place] [address] Dr. Garfield Nelson MCH (RBC) [Entitic mass] 28.4 pg Normal 26.7-34.0 [facility] Comment on above: Performed By: #### V ITAD #### [facility] [address] [place] [address] Dr. Garfield Nelson MCHC (RBC) [Mass/Vol] 31.5 g/dL Normal 29.9-35.2 [facility] Comment on above: Performed By: #### V ITAD #### [facility] [address] [place] [address] Dr. Garfield Nelson MCV (RBC) [Entitic vol] 90.0 fL Normal 81.0-99.0 [facility] Comment on above: Performed By: #### V ITAD #### [facility] [address] [place] [address] Dr. Garfield Nelson MONO # 0.9 103/ul Critically high 0.3-0.8 [facility] Comment on above: Performed By: #### V ITAD #### [facility] [address] [place] [address] Dr. Garfield Nelson Monocytes/100 WBC (Bld) 10.9 % Normal 1.7-12.0 [facility] Comment on above: Performed By: #### V ITAD #### [facility] [address] [place] [address] Dr. Garfield Nelson NEUT # 5.7 103/ul Normal 1.4-6.5 [facility] Comment on above: Performed By: #### V ITAD #### [facility] [address] [place] [address] Dr. Garfield Nelson Neutrophils/100 WBC (Bld) 67.2 % Normal 43.0-75.0 [facility] Comment on above: Performed By: #### V ITAD #### [facility] [address] [place] [address] Dr. Garfield Nelson Platelet mean volume (Bld) [Entitic vol] 12.1 fL Normal 9.5-13.5 [facility] Comment on above: Performed By: #### V ITAD #### [facility] [address] [place] [address] Dr. Garfield Nelson PLT 249 103/ul Normal 150-450 [facility] Comment on above: Performed By: #### V ITAD #### [facility] [address] [place] [address] Dr. Garfield Nelson RBC 4.51 106/ul Normal 4.20-5.40 [facility] Comment on above: Performed By: #### V ITAD #### [facility] [address] [place] [address] Dr. Garfield Nelson WBC 8.5 103/ul Normal 4.0-11.0 [facility] Comment on above: Performed By: #### V ITAD #### [facility] [address] [place] [address] Dr. Garfield Nelson MAGNESIUMon 08-07-2021 Magnesium [Mass/Vol] 2.0 mg/dL Normal 1.8-2.4 [facility] Comment on above: Performed By: #### C SUITE #### [facility] [address] [place] [address] Dr. Garfield Nelson PHOSPHORUSon 08-07-2021 Phosphate [Mass/Vol] 3.6 mg/dL Normal 2.6-4.7 [facility] Comment on above: Performed By: #### C SUITE #### [facility] [address] [place] [address] Dr. Garfield Nelson PROF 14(COMP METB)on 022 Albumin [Mass/Vol] 3.8 g/dL Normal 3.4-5.[address] [facility] Comment on above: Performed By: #### C SUITE #### [facility] [address] [place] [address] Dr. Garfield Nelson Albumin/Globulin [Mass ratio] 0.9 {ratio} Normal [facility] Comment on above: Performed By: #### C SUITE #### [facility] [address] [place] [address] Dr. Garfield Nelson ALP [Catalytic activity/Vol] 73 U/L Normal 46-116 [facility] Comment on above: Performed By: #### C SUITE #### [facility] [address] [address] [address] Garfield Nelson ALT [Catalytic activity/Vol] 24 U/L Normal 14-59 [facility] Comment on above: Performed By: #### C SUITE #### [facility] [address] [place] [address] Dr. Garfield Nelson Anion gap [Moles/Vol] 12.0 mmol/L Normal [facility] Comment on above: Performed By: #### C SUITE #### [facility] [address] [address] [address] Garfield Nelson AST [Catalytic activity/Vol] 22 U/L Normal 15-37 [facility] Comment on above: Performed By: #### C SUITE #### [facility] [address] [place] [address] Dr. Garfield Nelson Bilirubin [Mass/Vol] 0.4 mg/dL Normal 0.2-1.0 [facility] Comment on above: Performed By: #### C SUITE #### [facility] [address] [place] [address] Dr. Garfield Nelson Calcium [Mass/Vol] 8.9 mg/dL Normal 8.5-10.[address] [facility] Comment on above: Performed By: #### C SUITE #### [facility] [address] [place] [address] Dr. Garfield Nelson Chloride [Moles/Vol] 102 mmol/L Normal 98-107 [facility] Comment on above: Performed By: #### C SUITE #### [facility] [address] [place] [address] Dr. Garfield Nelson CO2 [Moles/Vol] 27.2 mmol/L Normal 21.0-32.0 [facility] Comment on above: Performed By: #### C SUITE #### [facility] [address] [place] [address] Dr. Garfield Nelson Creatinine [Mass/Vol] 0.86 mg/dL Normal 0.55-1.02 [facility] Comment on above: Performed By: #### C SUITE #### [facility] [address] [place] [address] Dr. Garfield Nelson EGFR-AF [place]LANDER >60 Normal >=60 [facility] Comment on above: Performed By: #### C SUITE #### [facility] [address] [place] [address] Dr. Garfield Nelson EGFR-NON AF [place]ER >60 Normal >=60 [facility] Comment on above: Performed By: #### C SUITE #### [facility] [address] [place] [address] Dr. Garfield Nelson Globulin (S) [Mass/Vol] 4.4 g/dL Normal [facility] Comment on above: Performed By: #### C SUITE #### [facility] [address] [place] [address] Dr. Garfield Nelson Glucose [Mass/Vol] 108 mg/dL Critically high 74-106 [facility] Comment on above: Performed By: #### C SUITE #### [facility] [address] [place] [address] Dr. Garfield Nelson Potassium [Moles/Vol] 4.2 mmol/L Normal 3.5-5.1 [facility] Comment on above: Performed By: #### C SUITE #### [facility] [address] [place] [address] Dr. Garfield Nelson Protein [Mass/Vol] 8.2 g/dL Normal 6.4-8.2 [facility] Comment on above: Performed By: #### C SUITE #### [facility] [address] [place] [address] Dr. Garfield Nelson Sodium [Moles/Vol] 137 mmol/L Normal 136-145 [facility] Comment on above: Performed By: #### C SUITE #### [facility] [address] [place] [address] Dr. Garfield Nelson Urea nitrogen [Mass/Vol] 15.0 mg/dL Normal 7.0-18.0 [facility] Comment on above: Performed By: #### C SUITE #### [facility] [address] [place] [address] Dr. Garfield Nelson Urea nitrogen/Creatinine [Mass ratio] 17.4 mg/mg Normal [facility] Comment on above: Performed By: #### C SUITE #### [facility] [address] [place] [address] Dr. Garfield Nelson SED RATE WESTERGREN 2021 SED RATE 11 mm/hr Normal <=30 [facility] Comment on above: Performed By: #### C SUITE #### [facility] [address] [place] [address] Dr. Garfield Nelson UA RANDOM W/MICROSCOPICon BACTERIA NONE SEEN Normal NONE SEEN [facility] Comment on above: Performed By: #### U AMIC #### [facility] [address] [place] [address] Dr. Garfield Nelson Bilirubin Ql (U) Negative Normal NEGATIVE [facility] Comment on above: Performed By: #### U AMIC #### [facility] [address] [place] [address] Dr. Garfield Nelson CAST NONE SEEN Normal NONE SEEN [facility] Comment on above: Performed By: #### U AMIC #### [facility] [address] [place] [address] Dr. Garfield Nelson Clarity (U) CLEAR Normal CLEAR [facility] Comment on above: Performed By: #### U AMIC #### [facility] [address] [place] [address] Dr. Garfield Nelson Color (U) LT. YELLOW Normal YELLOW [facility] Comment on above: Performed By: #### U AMIC #### [facility] [address] [place] [address] Dr. Garfield Nelson Crystals LM Nom (Urine sed) NONE SEEN Normal NONE SEEN [facility] Comment on above: Performed By: #### U AMIC #### [facility] [address] [place] [address] Dr. Garfield Nelson Epithelial cells LM Ql (Urine sed) FEW Abnormal NONE SEEN /RARE [facility] Comment on above: Performed By: #### U AMIC #### [facility] [address] [place] [address] Dr. Garfield Nelson Glucose Ql (U) Negative Normal NEGATIVE [facility] Comment on above: Performed By: #### U AMIC #### [facility] [address] [address] [address] Garfield Nelson Hemoglobin Ql (U) Negative Normal NEGATIVE [facility] Comment on above: Performed By: #### U AMIC #### [facility] [address] [address] [address] Garfield Nelson Ketones Ql (U) Negative Normal NEGATIVE [facility] Comment on above: Performed By: #### U AMIC #### [facility] [address] [address] [address] Garfield Nelson LEUKOCYTES Negative Normal NEGATIVE [facility] Comment on above: Performed By: #### U AMIC #### [facility] [address] [place] [address] Dr. Garfield Nelson MUCOUS NONE SEEN Normal NONE SEEN [facility] Comment on above: Performed By: #### U AMIC #### [facility] [address] [address] [address] Garfield Nelson Nitrite Ql (U) Negative Normal NEGATIVE [facility] Comment on above: Performed By: #### U AMIC #### [facility] [address] [address] [address] Garfield Nelson pH (U) 6.0 [pH] Normal 5-9 [facility] Comment on above: Performed By: #### U AMIC #### [facility] [address] [address] [address] Garfield Nelson RBC NONE SEEN Abnormal 0-2 [facility] Comment on above: Performed By: #### U AMIC #### [facility] [address] [address] [address] Garfield Nelson SPEC GRAVITY 1.010 Normal 1.005-<=1.025 [facility] Comment on above: Performed By: #### U AMIC #### [facility] [address] [place] [address] Dr. Garfield Nelson UA PROTEIN Negative Normal NEGATIVE/ TRACE [facility] Comment on above: Performed By: #### U AMIC #### [facility] [address] [address] [address] Garfield Nelson Urobilinogen Qn (U) 0.2 {Marquise'U}/dL Normal 0.2 - 1. 0 [facility] Comment on above: Performed By: #### U AMIC #### [facility] [address] [address] [address] Garfield Nelson WBC NONE SEEN Normal NONE SEEN [facility] Comment on above: Performed By: #### U AMIC #### [facility] [address] [address] [address] Garfield Nelson Vital Signs Date Time Vital Sign Value Performing Clinician Facility 12-18-2022 11:00-0400 Body height 157.48 cm Rich Jose Other [facility] Other 12-18-2022 11:00-0400 Body mass index (BMI) [Ratio] 19.02 kg/m2 Rich Garcia Other [facility] Other 12-18-2022 11:00-0400 Body weight 47.17 kg Rich Jose Other [facility] Other 12-18-2022 11:00-0400 Diastolic blood pressure 78 mm[Hg] Rich Jose Other [facility] Other 12-18-2022 11:00-0400 Respiratory rate 12 /min Rich Jose Other [facility] Other 12-18-2022 11:00-0400 Systolic blood pressure 117 mm[Hg] Rich Jose Other [facility] Other Encounters Encounter Date Encounter Type Care Provider Facility Start: 12-18-2022 End: 12-18-2022 ambulatory Rich Jose Other [facility] Other Start: 12-18-2022 Encounter for genera l adult medical examination without abnormal findings Rich Garcia [facility] Start: 12-18-2022 Periodic preventive med est patient 40-64yrs Rich Garcia [facility] Start: 12-05-2022 End: 12-05-2022 ambulatory Rich Garcia Other [facility] Other Start: 12-05-2022 Nursing evaluation o f patient and report Rich Garcia [facility] Start: 05-12-2022 End: 05-13-[address] NIKI BOWMAN Facility:[facility] Start: 04-11-2022 End: 04-11-2022 ambulatory Rich Garcia Other [facility] Other Start: 04-11-2022 Office outpatient vi sit 15 minutes Rich Garcia [facility] Start: 03-11-2022 End: 03-11-2022 ambulatory Rich Garcia Other [facility] Other Start: 03-11-2022 Office outpatient vi sit 15 minutes Rich Garcia [facility] Start: 02-11-2022 End: 02-12-[address] DOCTOR SMITH Facility:[facility] Start: 01-02-2022 End: 01-02-2022 ambulatory Patricia Ornelas Facility:[facility] Start: 01-02-2022 End: 01-02-2022 ambulatory DO Rich Jose Work Phone: [facility] Work Phone: Start: 01-02-2022 End: 01-02-2022 Patient encounter procedure DO Rich Garcia Work Phone: [facility] Start: 01-02-2022 ambulatory Facility:[id number] Start: 12-19-2021 Encounter for genera l adult medical examination without abnormal findings DR RICH GARCIA [facility] Start: 12-17-2021 End: 12-18-[address] RICH GARCIA Facility:[facility] Start: 12-17-2021 End: 12-18-2021 Encounter for general adult medical examination without abnormal findings DR RICH GARCIA Facility:[facility] Start: 12-16-2021 End: 12-16-[address] JUDITH MARTINEZ . Facility:[facility] Start: 12-16-2021 Gynecological examination normal Rich Garcia Other [facility] Other Start: 12-13-2021 Adult health examination Douglas Garcia Other [facility] Other Start: 11-14-2021 End: 11-15-[address] [...] e, quadrivalent, preservative free Rich Garcia Other [facility] Other 12-13-2021 influenza virus vaccine, split virus (incl. purified surface antigen) Rich Garcia Other [facility] Other 12-12-2020 COVID-19 mRNA, Comirnaty (Pfizer) DO Rich Garcia Work Phone: [facility] 12-05-2020 influenza virus vaccine, split virus (incl. purified surface antigen) Rich Garcia Other [facility] Other 05-04-2020 COVID-19 mRNA, Comirnaty (Pfizer) DO Rich Garcia Work Phone: [facility] 04-13-2020 COVID-19 mRNA, Comirnaty (Pfizer) DO Rich Garcia Work Phone: [facility] 12-08-2019 influenza virus vaccine, split virus (incl. purified surface antigen) Rich Garcia Other [facility] Other 01-05-2019 pneumococcal polysaccharide vaccine, 23 valent Rich Garcia Other [facility] Other 12-03-2018 influenza virus vaccine, split virus (incl. purified surface antigen) Rich Garcia Other [facility] Other 12-15-2017 influenza virus vaccine, split virus (incl. purified surface antigen) Rich Garcia Other [facility] Other 12-10-2016 tetanus and diphther ia toxoids, adsorbed, preservative free, for adult use (5 Lf of tetanus toxoid and 2 Lf of diphtheria toxoid) Rich Garcia Other [facility] Other 12-12-2015 tetanus and diphther ia toxoids, adsorbed, preservative free, for adult use (5 Lf of tetanus toxoid and 2 Lf of diphtheria toxoid) Rich Garcia Other [facility] Other 11-15-2015 pneumococcal conjuga te vaccine, 13 valent Rich Garcia Other [facility] Other 12-19-2014 tetanus and diphther ia toxoids, adsorbed, preservative free, for adult use (5 Lf of tetanus toxoid and 2 Lf of diphtheria toxoid) Rich Garcia Other [facility] Other 12-14-2012 tetanus and diphther ia toxoids, adsorbed, preservative free, for adult use (5 Lf of tetanus toxoid and 2 Lf of diphtheria toxoid) Rich Ball Other [facility] Other Payers Date Payer Category Payer Self-pay [id number] 2021 Unknown [id number] 1965 Unknown [id number] 2.16. [id number] 1965 Unknown [id number] 2.16.84 [id number] 1965 Unknown [id number] 2.16.84 [id number] 1965 Unknown [id number] 2.16.84 [id number] 1965 Unknown [id number] 2.16.84 [id number] 1965 Unknown [id number] 2.16.84 [id number] 1965 Unknown [id number] 2.16.84 [id number] 1965 Unknown [id number] 2.16.84 [id number] 1959 Unknown [id number] 2.1 [id number] Unknown [id number] 2.16.8 [id number] Social History Date Type Detail Facility Start: 01-28-2021 Tobacco smoking status NHIS Never smoked tobacco (finding) [facility] Start: 1965 Sex Assigned At Female F [facility] Sex Assigned At Sex Assigned At Bir th [employer] Other Evaluation note 12-18-2022 Note Date & [...] patient on monthly SBE and yearly mammograms. [facility] Other Evaluation note 04-11-2022 Note Date & [...] of symptoms to lungs, SOB or CP. [facility] Other Evaluation note 03-11-2022 Note Date & [...] treatment, empiric treatment of any infection necessary [facility] Other Evaluation note Note Date & Type Note Facility Evaluation note No assessment information availa [facility] Work Phone: Evaluation note Note Date & Type Note Facility Evaluation note No Information [facility] Other History general Narrative - Reported Note Date & Type Note Facility History general Narrative - Reported Type Medical History Scleroderma Medical History Breast cancer screening by mammo gram Medical History Progressive systemic sclerosis Medical History Raynaud''s phenomenon without ga ngrene Medical History Age-related osteopor osis without current pathological fracture Surgical History HYSTERECTOMY Hospitalization History see surgical history [facility] Other Chief Complaint and Reason for Visit [...] section and content) DATE CREATED AUTHOR 04/05/2022 [facility] DATE CREATED AUTHOR AUTHOR'S ORGANIZ ATION 04/05/2022 [facility] DATE CREATED AUTHOR AUTHOR'S ORGANIZ ATION 05/19/2022 [facility] REASON FOR VISIT (unrecogniz ed section and content) Cough/ Sinuses [phone] inuses/ Sick [phone] [employer] FOR RECORDS PERTAINING TO PATIENTS WHO [...] BE BASED ON THE PRIMARY CLINICAL RECORDS. [facility]. provides no warranty or guarantee of the accuracy or completeness of information in this document.
--- NOTE | 2023-12-18 11:10 | MM_ITS ---
Patient Name: SIERRA ALBERTS MR#: [id number] : 1965 Exam Date: 12/18/2023 Ordering Doctor: JAD Reed . RADIOLOGY REPORT PROCEDURE: MM TOMOSYNTHESIS SCREENING BI COMPARISON: MG MAMM SCREEN 3D PATRICA CAD, 11/14/2021. MM TOMOSYNTHESIS SCREENING BI, 12/05/2022. INDICATIONS: Screening Calculator Name NCI Breast Cancer Risk Assessment Tool 5 Year Breast Cancer Risk 3.40% Lifetime Breast Cancer Risk 18.40% Personal Breast Cancer No Personal Ovarian Cancer No Treatments None Family Cancers Sister with breast cancer at age 69; Aunt-maternal with breast cancer at age ~60; Aunt-maternal with breast cancer at age ~60. LOCATION: [facility] BREAST COMPOSITION: The breasts are extremely dense, which lowers the sensitivity of mammography. FINDINGS: DIAGNOSTIC CATEGORY 2--BENIGN FINDING. NO CHANGE FROM COMPARISON. Scattered benign-appearing nodules are present. Scattered benign-appearing calcifications are present. RIGHT BREAST: No significant suspicious finding. LEFT BREAST: No significant suspicious finding. RECOMMENDATIONS: ROUTINE MAMMOGRAM AND CLINICAL EVALUATION IN 12 MONTHS. PLEASE NOTE: A NORMAL MAMMOGRAM DOES NOT EXCLUDE THE POSSIBILITY OF BREAST CANCER. A CLINICALLY SUSPICIOUS PALPABLE LUMP SHOULD BE BIOPSIED. Dictated by: Erik Chong MD on 12/18/2023 at 12:47 Approved by: Erik Chong MD on 12/18/2023 at 12:48
== END 2023-12-18 10:46 | disposition home or self-care (01) ==
LOC: MAMMO 10:45
PROVIDERS: Visit Provider Physician Assistant
DX: Z12.31 Encounter for screening mammogram for malignant neoplasm of breast (principal); Z80.3 Family history of malignant neoplasm of breast
CPT/HCPCS: 77063; 77067

== ENCOUNTER 2023-12-29 07:05 | Outpatient (OUT) | payer OTHER, SELFPAY ==
--- OUTSIDE RECORDS SUMMARY | 2023-12-29 07:08 | XMS_ITS | CCD ---
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 Name Role Phone DO Rich Garcia Primary [...] (1 source) Penicillins Drug allergy (disorder) 01-29-20 [facility] Repository (4 sources) Penicillin V Drug Allergy Unknown [place] Other (1 source) Penicillins Drug allergy (disorder) 03-02-19 03 [facility] Repository (1 source) Allergies Reconciled Propensity to adverse reactions Unknown [place] Other (2 sources) Substance with penicillin structure and antibacterial mechanism of action (substance) Drug allergy Comment:Rash [place] Other (1 source) patient allergy list reviewed by nurse or physicia Propensity to adverse reactions 12-11-19 Comment:Done [place] Other Medications Current Medications Medication Drug Class(es) [...] oral tablet (5 sources) Dihydropyridine Calcium Channel Vijyaa Start: 01-28-2021 take 30 mg by mouth [...] Inhibitor Omeprazole 20 MG (Prior Auth: Rx Ref#:[id number]) Oral for 90 Not-Taking Problems Active Problems [...] Other detention (current) drug therapy; 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 Garfield Nelson Complement C4, Serum 14 mg/dL Normal 12-38 [facility] Comment on above: Performed By: #### V ITAD #### [facility] [address] [place] [address] Dr. Garfield Nelson COMPLEMENT TOTAL (CH50)on Complement, Total (CH50) >60 Normal >41 [facility] Comment on above: Result Comment: Age [...] values. Performed By: #### C H50T #### [facility] [address] [place] [address] Dr. Garfield Nelson CBC AUTO DIFFon 05-12-2022 BASO # 0.0 103/ul Normal 0.0-0.1 [facility] Comment on above: Performed By: #### C BC #### [facility] [address] [place] [address] Dr. Garfield Nelson Basophils/100 WBC (Bld) 0.4 % Normal 0.2-2.0 [facility] Comment on above: Performed By: #### C BC #### [facility] [address] [place] [address] Dr. Garfield Nelson EO # 0.1 103/ul Normal 0.0-0.7 [facility] Comment on above: Performed By: #### C BC #### [facility] [address] [place] [address] Dr. Garfield Nelson Eosinophils/100 WBC (Bld) 1.1 % Normal 0.9-7.0 [facility] Comment on above: Performed By: #### C BC #### [facility] [address] [place] [address] Dr. Garfield Nelson Erythrocyte distribution width (RBC) [Ratio] 14.9 % Normal 11.0-15.0 [facility] Comment on above: Performed By: #### C BC #### [facility] [address] [place] [address] Dr. Garfield Nelson Hematocrit (Bld) [Volume fraction] 38.3 % Normal 36.0-48.0 [facility] Comment on above: Performed By: #### C BC #### [facility] [address] [place] [address] Dr. Garfield Nelson Hemoglobin (Bld) [Mass/Vol] 12.2 g/dL Normal 12.0-16.0 [facility] Comment on above: Performed By: #### C BC #### [facility] [address] [place] [address] Dr. Garfield Nelson IG # 0.03 10e3/ul Normal 0.00-0.03 [facility] Comment on above: Performed By: #### C BC #### [facility] [address] [place] [address] Dr. Garfield Nelson IG % 0.3 % Normal 0.0-0.5 [facility] Comment on above: Performed By: #### C BC #### [facility] [address] [place] [address] Dr. Garfield Nelson LYMPH # 2.1 103/ul Normal 1.2-3.8 [facility] Comment on above: Performed By: #### C BC #### [facility] [address] [place] [address] Dr. Garfield Nelson Lymphocytes/100 WBC (Bld) 22.6 % Normal 20.5-60.0 [facility] Comment on above: Performed By: #### C BC #### [facility] [address] [place] [address] Dr. Garfield Nelson MANUAL DIFF REQ NO Normal [facility] Comment on above: Performed By: #### C BC #### [facility] [address] [place] [address] Dr. Garfield Nelson MCH (RBC) [Entitic mass] 28.5 pg Normal 26.7-34.0 [facility] Comment on above: Performed By: #### C BC #### [facility] [address] [address] [address] Garfield Nelson MCHC (RBC) [Mass/Vol] 31.9 g/dL Normal 29.9-35.2 [facility] Comment on above: Performed By: #### C BC #### [facility] [address] [place] [address] Dr. Garfield Nelson MCV (RBC) [Entitic vol] 89.5 fL Normal 81.0-99.0 [facility] Comment on above: Performed By: #### C BC #### [facility] [address] [place] [address] Dr. Garfield Nelson MONO # 1.0 103/ul Critically high 0.3-0.8 [facility] Comment on above: Performed By: #### C BC #### [facility] [address] [place] [address] Dr. Garfield Nelson Monocytes/100 WBC (Bld) 10.5 % Normal 1.7-12.0 [facility] Comment on above: Performed By: #### C BC #### [facility] [address] [place] [address] Dr. Garfield Nelson NEUT # 6.1 103/ul Normal 1.4-6.5 [facility] Comment on above: Performed By: #### C BC #### [facility] [address] [place] [address] Dr. Garfield Nelson Neutrophils/100 WBC (Bld) 65.1 % Normal 43.0-75.0 [facility] Comment on above: Performed By: #### C BC #### [facility] [address] [place] [address] Dr. Garfield Nelson Platelet mean volume (Bld) [Entitic vol] 12.1 fL Normal 9.5-13.5 [facility] Comment on above: Performed By: #### C BC #### [facility] [address] [place] [address] Dr. Garfield Nelson PLT 276 103/ul Normal 150-450 [facility] Comment on above: Performed By: #### C BC #### [facility] [address] [place] [address] Dr. Garfield Nelson RBC 4.28 106/ul Normal 4.20-5.40 [facility] Comment on above: Performed By: #### C BC #### [facility] [address] [place] [address] Dr. Garfield Nelson WBC 9.4 103/ul Normal 4.0-11.0 [facility] Comment on above: Performed By: #### C BC #### [facility] [address] [place] [address] Dr. Garfield Nelson MAGNESIUMon 05-12-2022 Magnesium [Mass/Vol] 2.0 mg/dL Normal 1.8-2.4 [facility] Comment on above: Performed By: #### V ITAD #### [facility] [address] [place] [address] Dr. Garfield Nelson PHOSPHORUSon 05-12-2022 Phosphate [Mass/Vol] 3.0 mg/dL Normal 2.6-4.7 [facility] Comment on above: Performed By: #### V ITAD #### [facility] [address] [place] [address] Dr. Garfield Nelson PROF 14(COMP METB)on 023 Albumin [Mass/Vol] 3.8 g/dL Normal 3.4-5.0 [facility] Comment on above: Performed By: #### V ITAD #### [facility] [address] [place] [address] Dr. Garfield Nelson Albumin/Globulin [Mass ratio] 1.0 {ratio} Normal [facility] Comment on above: Performed By: #### V ITAD #### [facility] [address] [place] [address] Dr. Garfield Nelson ALP [Catalytic activity/Vol] 93 U/L Normal 46-116 [facility] Comment on above: Performed By: #### V ITAD #### [facility] [address] [address] [address] Garfield Nelson ALT [Catalytic activity/Vol] 19 U/L Normal 14-59 [facility] Comment on above: Performed By: #### V ITAD #### [facility] [address] [address] [address] Garfield Nelson Anion gap [Moles/Vol] 9.5 mmol/L Normal [facility] Comment on above: Performed By: #### V ITAD #### [facility] [address] [address] [address] Garfield Nelson AST [Catalytic activity/Vol] 22 U/L Normal 15-37 [facility] Comment on above: Performed By: #### V ITAD #### [facility] [address] [place] [address] Dr. Garfield Nelson Bilirubin [Mass/Vol] 0.3 mg/dL Normal 0.2-1.0 [facility] Comment on above: Performed By: #### V ITAD #### [facility] [address] [place] [address] Dr. Garfield Nelson Calcium [Mass/Vol] 8.7 mg/dL Normal 8.5-10.1 [facility] Comment on above: Performed By: #### V ITAD #### [facility] [address] [place] [address] Dr. Garfield Nelson Chloride [Moles/Vol] 104 mmol/L Normal 98-107 [facility] Comment on above: Performed By: #### V ITAD #### [facility] [address] [place] [address] Dr. Garfield Nelson CO2 [Moles/Vol] 29.0 mmol/L Normal 21.0-32.0 [facility] Comment on above: Performed By: #### V ITAD #### [facility] [address] [place] [address] Dr. Garfield Nelson Creatinine [Mass/Vol] 0.65 mg/dL Normal 0.55-1.02 [facility] Comment on above: Performed By: #### V ITAD #### [facility] [address] [address] [address] Garfield Nelson EGFR-AF GIBRALTARIAN >60 Normal >=60 [facility] Comment on above: Performed By: #### V ITAD #### [facility] [address] [address] [address] Garfield Nelson EGFR-NON AF GIBRALTARIAN >60 Normal >=60 [facility] Comment on above: Performed By: #### V ITAD #### [facility] [address] [address] [address] Garfield Nelson Globulin (S) [Mass/Vol] 3.8 g/dL Normal [facility] Comment on above: Performed By: #### V ITAD #### [facility] [address] [place] [address] Dr. Garfield Nelson Glucose [Mass/Vol] 87 mg/dL Normal 74-106 [facility] Comment on above: Performed By: #### V ITAD #### [facility] [address] [place] [address] Dr. Garfield Nelson Potassium [Moles/Vol] 3.5 mmol/L Normal 3.5-5.1 [facility] Comment on above: Performed By: #### V ITAD #### [facility] [address] [place] [address] Dr. Garfield Nelson Protein [Mass/Vol] 7.6 g/dL Normal 6.4-8.2 [facility] Comment on above: Performed By: #### V ITAD #### [facility] [address] [address] [address] Garfield Nelson Sodium [Moles/Vol] 139 mmol/L Normal 136-145 [facility] Comment on above: Performed By: #### V ITAD #### [facility] [address] [place] [address] Dr. Garfield Nelson Urea nitrogen [Mass/Vol] 15.0 mg/dL Normal 7.0-18.0 [facility] Comment on above: Performed By: #### V ITAD #### [facility] [address] [place] [address] Dr. Garfield Nelson Urea nitrogen/Creatinine [Mass ratio] 23.1 mg/mg Normal [facility] Comment on above: Performed By: #### V ITAD #### [facility] [address] [place] [address] Dr. Garfield Nelson SED RATE WESTERGREN 2022 SED RATE 39 mm/hr Critically high <=30 [facility] Comment on above: Performed By: #### M G, DAVIDS, CMP #### [facility] [address] [place] [address] Dr. Garfield Nelson UA RANDOM W/MICROSCOPICon BACTERIA NONE SEEN Normal NONE SEEN [facility] Comment on above: Performed By: #### C SUITE #### [facility] [address] [place] [address] Dr. Garfield Nelson Bilirubin Ql (U) Negative Normal NEGATIVE [facility] Comment on above: Performed By: #### C SUITE #### [facility] [address] [place] [address] Dr. Garfield Nelson CAST NONE SEEN Normal NONE SEEN [facility] Comment on above: Performed By: #### C SUITE #### [facility] [address] [place] [address] Dr. Garfield Nelson Clarity (U) CLEAR Normal CLEAR [facility] Comment on above: Performed By: #### C SUITE #### [facility] [address] [place] [address] Dr. Garfield Nelson Color (U) LT. YELLOW Normal YELLOW [facility] Comment on above: Performed By: #### C SUITE #### [facility] [address] [place] [address] Dr. Garfield Nelson Crystals LM Nom (Urine sed) NONE SEEN Normal NONE SEEN [facility] Comment on above: Performed By: #### C SUITE #### [facility] [address] [place] [address] Dr. Garfield Nelson Epithelial cells LM Ql (Urine sed) RARE Normal NONE SEEN /RARE [facility] Comment on above: Performed By: #### C SUITE #### [facility] [address] [place] [address] Dr. Garfield Nelson Glucose Ql (U) Negative Normal NEGATIVE [facility] Comment on above: Performed By: #### C SUITE #### [facility] [address] [place] [address] Dr. Garfield Nelson Hemoglobin Ql (U) Negative Normal NEGATIVE [facility] Comment on above: Performed By: #### C SUITE #### [facility] [address] [place] [address] Dr. Garfield Nelson Ketones Ql (U) Negative Normal NEGATIVE [facility] Comment on above: Performed By: #### C SUITE #### [facility] [address] [place] [address] Dr. Garfield Nelson LEUKOCYTES Negative Normal NEGATIVE [facility] Comment on above: Performed By: #### C SUITE #### [facility] [address] [place] [address] Dr. Garfield Nelson MUCOUS NONE SEEN Normal NONE SEEN [facility] Comment on above: Performed By: #### C SUITE #### [facility] [address] [place] [address] Dr. Garfield Nelson Nitrite Ql (U) Negative Normal NEGATIVE [facility] Comment on above: Performed By: #### C SUITE #### [facility] [address] [place] [address] Dr. Garfield Nelson pH (U) 7.0 [pH] Normal 5-9 [facility] Comment on above: Performed By: #### C SUITE #### [facility] [address] [place] [address] Dr. Garfield Nelson RBC NONE SEEN Abnormal 0-2 [facility] Comment on above: Performed By: #### C SUITE #### [facility] [address] [place] [address] Dr. Garfield Nelson SPEC GRAVITY <=1.005 Abnormal 1.005-<=1.025 [facility] Comment on above: Performed By: #### C SUITE #### [facility] [address] [place] [address] Dr. Garfield Nelson UA PROTEIN Negative Normal NEGATIVE/ TRACE [facility] Comment on above: Performed By: #### C SUITE #### [facility] [address] [place] [address] Dr. Garfield Nelson Urobilinogen Qn (U) 0.2 {Marquise'U}/dL Normal 0.2 - 1. 0 [facility] Comment on above: Performed By: #### C SUITE #### [facility] [address] [place] [address] Dr. Garfield Nelson WBC NONE SEEN Normal NONE SEEN [facility] Comment on above: Performed By: #### C SUITE #### [facility] [address] [place] [address] Dr. Garfield Nelson C3 and C4 COMPLEMENTon 02-12 Complement C3, Serum 117 mg/dL Normal 82-167 [facility] Comment on above: Performed By: #### V ITAD #### [facility] [address] [place] [address] Dr. Garfield Nelson Complement C4, Serum 20 mg/dL Normal 12-38 [facility] Comment on above: Performed By: #### V ITAD #### [facility] [address] [place] [address] Dr. Garfield Nelson COMPLEMENT TOTAL (CH50)on Complement, Total (CH50) >60 Normal >41 [facility] Comment on above: Result Comment: [...] values. Performed By: #### C H50T #### [facility] [address] [place] [address] Dr. Garfield Nelson CBC AUTO DIFFon 02-11-2022 BASO # 0.1 103/ul Normal 0.0-0.1 [facility] Comment on above: Performed By: #### V ITAD #### [facility] [address] [place] [address] Dr. Garfield Nelson Basophils/100 WBC (Bld) 0.6 % Normal 0.2-2.0 [facility] Comment on above: Performed By: #### V ITAD #### [facility] [address] [place] [address] Dr. Garfield Nelson EO # 0.1 103/ul Normal 0.0-0.7 [facility] Comment on above: Performed By: #### V ITAD #### [facility] [address] [place] [address] Dr. Garfield Nelson Eosinophils/100 WBC (Bld) 1.4 % Normal 0.9-7.0 [facility] Comment on above: Performed By: #### V ITAD #### [facility] [address] [place] [address] Dr. Garfield Nelson Erythrocyte distribution width (RBC) [Ratio] 14.2 % Normal 11.0-15.0 [facility] Comment on above: Performed By: #### V ITAD #### [facility] [address] [place] [address] Dr. Garfield Nelson Hematocrit (Bld) [Volume fraction] 39.1 % Normal 36.0-48.0 [facility] Comment on above: Performed By: #### V ITAD #### [facility] [address] [place] [address] Dr. Garfield Nelson Hemoglobin (Bld) [Mass/Vol] 12.7 g/dL Normal 12.0-16.0 [facility] Comment on above: Performed By: #### V ITAD #### [facility] [address] [place] [address] Dr. Garfield Nelson IG # 0.02 10e3/ul Normal 0.00-0.03 [facility] Comment on above: Performed By: #### V ITAD #### [facility] [address] [place] [address] Dr. Garfield Nelson IG % 0.2 % Normal 0.0-0.5 [facility] Comment on above: Performed By: #### V ITAD #### [facility] [address] [place] [address] Dr. Garfield Nelson LYMPH # 2.0 103/ul Normal 1.2-3.8 [facility] Comment on above: Performed By: #### V ITAD #### [facility] [address] [place] [address] Dr. Garfield Nelson Lymphocytes/100 WBC (Bld) 24.9 % Normal 20.5-60.0 [facility] Comment on above: Performed By: #### V ITAD #### [facility] [address] [place] [address] Dr. Garfield Nelson MANUAL DIFF REQ NO Normal [facility] Comment on above: Performed By: #### V ITAD #### [facility] [address] [place] [address] Dr. Garfield Nelson MCH (RBC) [Entitic mass] 28.5 pg Normal 26.7-34.0 [facility] Comment on above: Performed By: #### V ITAD #### [facility] [address] [place] [address] Dr. Garfield Nelson MCHC (RBC) [Mass/Vol] 32.5 g/dL Normal 29.9-35.2 [facility] Comment on above: Performed By: #### V ITAD #### [facility] [address] [place] [address] Dr. Garfield Nelson MCV (RBC) [Entitic vol] 87.7 fL Normal 81.0-99.0 [facility] Comment on above: Performed By: #### V ITAD #### [facility] [address] [place] [address] Dr. Garfield Nelson MONO # 1.0 103/ul Critically high 0.3-0.8 [facility] Comment on above: Performed By: #### V ITAD #### [facility] [address] [place] [address] Dr. Garfield Nelson Monocytes/100 WBC (Bld) 12.3 % Critically high 1.7-12.0 [facility] Comment on above: Performed By: #### V ITAD #### [facility] [address] [place] [address] Dr. Garfield Nelson NEUT # 4.9 103/ul Normal 1.4-6.5 [facility] Comment on above: Performed By: #### V ITAD #### [facility] [address] [place] [address] Dr. Garfield Nelson Neutrophils/100 WBC (Bld) 60.6 % Normal 43.0-75.0 [facility] Comment on above: Performed By: #### V ITAD #### [facility] [address] [place] [address] Dr. Garfield Nelson Platelet mean volume (Bld) [Entitic vol] 12.0 fL Normal 9.5-13.5 [facility] Comment on above: Performed By: #### V ITAD #### [facility] [address] [place] [address] Dr. Garfield Nelson PLT 247 103/ul Normal 150-450 [facility] Comment on above: Performed By: #### V ITAD #### [facility] [address] [place] [address] Dr. Garfield Nelson RBC 4.46 106/ul Normal 4.20-5.40 [facility] Comment on above: Performed By: #### V ITAD #### [facility] [address] [place] [address] Dr. Garfield Nelson WBC 8.1 103/ul Normal 4.0-11.0 [facility] Comment on above: Performed By: #### V ITAD #### [facility] [address] [place] [address] Dr. Garfield Nelson MAGNESIUMon 02-11-2022 Magnesium [Mass/Vol] 2.0 mg/dL Normal 1.8-2.4 [facility] Comment on above: Performed By: #### RAKESH Feng CMP #### [facility] [address] [place] [address] Dr. Garfield Nelson PHOSPHORUSon 02-11-2022 Phosphate [Mass/Vol] 3.6 mg/dL Normal 2.6-4.7 [facility] Comment on above: Performed By: #### RAKESH Feng CMP #### [facility] [address] [address] [address] Garfield Nelson PROF 14(COMP METB)on 022 Albumin [Mass/Vol] 3.8 g/dL Normal 3.4-5.0 [facility] Comment on above: Performed By: #### M G, PHOS, CMP #### [facility] [address] [address] [address] Garfield Nelson Albumin/Globulin [Mass ratio] 1.0 {ratio} Normal [facility] Comment on above: Performed By: #### M G, PHOS, CMP #### [facility] [address] [address] [address] Garfield Nelson ALP [Catalytic activity/Vol] 69 U/L Normal 46-116 [facility] Comment on above: Performed By: #### M G, PHOS, CMP #### [facility] [address] [address] [address] Garfield Nelson ALT [Catalytic activity/Vol] 14 U/L Normal 14-59 [facility] Comment on above: Performed By: #### M G, PHOS, CMP #### [facility] [address] [address] [address] Garfield Nelson Anion gap [Moles/Vol] 12.4 mmol/L Normal [facility] Comment on above: Performed By: #### M G, PHOS, CMP #### [facility] [address] [address] [address] Garfield Nelson AST [Catalytic activity/Vol] 22 U/L Normal 15-37 [facility] Comment on above: Performed By: #### M G, PHOS, CMP #### [facility] [address] [address] [address] Garfield Nelson Bilirubin [Mass/Vol] 0.3 mg/dL Normal 0.2-1.0 [facility] Comment on above: Performed By: #### M G, PHOS, CMP #### [facility] [address] [address] [address] Garfield Nelson Calcium [Mass/Vol] 8.6 mg/dL Normal 8.5-10.1 [facility] Comment on above: Performed By: #### RAKESH Feng, CMP #### [facility] [address] [place] [address] Dr. Garfield Nelson Chloride [Moles/Vol] 101 mmol/L Normal 98-107 [facility] Comment on above: Performed By: #### DAVID FengS, CMP #### [facility] [address] [place] [address] Dr. Garfield Nelson CO2 [Moles/Vol] 29.4 mmol/L Normal 21.0-32.0 [facility] Comment on above: Performed By: #### RAKESH Feng, CMP #### [facility] [address] [place] [address] Dr. Garfield Nelson Creatinine [Mass/Vol] 0.79 mg/dL Normal 0.55-1.02 [facility] Comment on above: Performed By: #### RAKESH Feng, CMP #### [facility] [address] [place] [address] Dr. Garfield Nelson EGFR-AF GIBRALTARIAN >60 Normal >=60 [facility] Comment on above: Performed By: #### RAKESH Feng, CMP #### [facility] [address] [place] [address] Dr. Garfield Nelson EGFR-NON AF GIBRALTARIAN >60 Normal >=60 [facility] Comment on above: Performed By: #### RAKESH Feng, CMP #### [facility] [address] [place] [address] Dr. Garfield Nelson Globulin (S) [Mass/Vol] 3.9 g/dL Normal [facility] Comment on above: Performed By: #### RAKESH Feng, CMP #### [facility] [address] [place] [address] Dr. Garfield Nelson Glucose [Mass/Vol] 109 mg/dL Critically high 74-106 [facility] Comment on above: Performed By: #### DAVID FengS, CMP #### [facility] [address] [place] [address] Dr. Garfield Nelson Potassium [Moles/Vol] 3.8 mmol/L Normal 3.5-5.1 [facility] Comment on above: Performed By: #### M RAKESH Dougherty CMP #### [facility] [address] [address] [address] Garfield Nelson Protein [Mass/Vol] 7.7 g/dL Normal 6.4-8.2 [facility] Comment on above: Performed By: #### RAKESH Feng, CMP #### [facility] [address] [address] [address] Garfield Nelson Sodium [Moles/Vol] 139 mmol/L Normal 136-145 [facility] Comment on above: Performed By: #### RAKESH Feng, CMP #### [facility] [address] [place] [address] Dr. Garfield Nelson Urea nitrogen [Mass/Vol] 17.0 mg/dL Normal 7.0-18.0 [facility] Comment on above: Performed By: #### RAKESH Feng, CMP #### [facility] [address] [place] [address] Dr. Garfield Nelson Urea nitrogen/Creatinine [Mass ratio] 21.5 mg/mg Normal [facility] Comment on above: Performed By: #### RAKESH Feng, CMP #### [facility] [address] [place] [address] Dr. Garfield Nelson SED RATE [facility] 2021 SED RATE 40 mm/hr Critically high <=30 [facility] Comment on above: Performed By: #### C SUITE #### [facility] [address] [place] [address] Dr. Garfield Nelson UA RANDOM W/MICROSCOPICon BACTERIA NONE SEEN Normal NONE SEEN [facility] Comment on above: Performed By: #### C SUITE #### [facility] [address] [place] [address] Dr. Garfield Nelson Bilirubin Ql (U) Negative Normal NEGATIVE [facility] Comment on above: Performed By: #### C SUITE #### [facility] [address] [place] [address] Dr. Garfield Nelson CAST NONE SEEN Normal NONE SEEN [facility] Comment on above: Performed By: #### C SUITE #### [facility] [address] [place] [address] Dr. Garfield Nelson Clarity (U) CLEAR Normal CLEAR [facility] Comment on above: Performed By: #### C SUITE #### [facility] [address] [place] [address] Dr. Garfield Nelson Color (U) LT. YELLOW Normal YELLOW [facility] Comment on above: Performed By: #### C SUITE #### [facility] [address] [place] [address] Dr. Garfield Nelson Crystals LM Nom (Urine sed) NONE SEEN Normal NONE SEEN [facility] Comment on above: Performed By: #### C SUITE #### [facility] [address] [place] [address] Dr. Garfield Nelson Epithelial cells LM Ql (Urine sed) NONE SEEN Normal NONE SEEN /RARE [facility] Comment on above: Performed By: #### C SUITE #### [facility] [address] [place] [address] Dr. Garfield Nelson Glucose Ql (U) Negative Normal NEGATIVE [facility] Comment on above: Performed By: #### C SUITE #### [facility] [address] [place] [address] Dr. Garfield Nelson Hemoglobin Ql (U) Negative Normal NEGATIVE [facility] Comment on above: Performed By: #### C SUITE #### [facility] [address] [place] [address] Dr. Garfield Nelson Ketones Ql (U) Negative Normal NEGATIVE [facility] Comment on above: Performed By: #### C SUITE #### [facility] [address] [place] [address] Dr. Garfield Nelson LEUKOCYTES Negative Normal NEGATIVE [facility] Comment on above: Performed By: #### C SUITE #### [facility] [address] [place] [address] Dr. Garfield Nelson MUCOUS NONE SEEN Normal NONE SEEN [facility] Comment on above: Performed By: #### C SUITE #### [facility] [address] [place] [address] Dr. Garfield Nelson Nitrite Ql (U) Negative Normal NEGATIVE [facility] Comment on above: Performed By: #### C SUITE #### [facility] [address] [place] [address] Dr. Garfield Nelson pH (U) 6.0 [pH] Normal 5-9 [facility] Comment on above: Performed By: #### C SUITE #### [facility] [address] [place] [address] Dr. Garfield Nelson RBC 0-2 Normal 0-2 [facility] Comment on above: Performed By: #### C SUITE #### [facility] [address] [place] [address] Dr. Garfield Nelson SPEC GRAVITY 1.025 Normal 1.005-<=1.025 [facility] Comment on above: Performed By: #### C SUITE #### [facility] [address] [place] [address] Dr. Garfield Nelson UA PROTEIN Negative Normal NEGATIVE/ TRACE [facility] Comment on above: Performed By: #### C SUITE #### [facility] [address] [place] [address] Dr. Garfield Nelson Urobilinogen Qn (U) 0.2 {Marquise'U}/dL Normal 0.2 - 1. 0 [facility] Comment on above: Performed By: #### C SUITE #### [facility] [address] [place] [address] Dr. Garfield Nelson WBC NONE SEEN Normal NONE SEEN [facility] Comment on above: Performed By: #### C SUITE #### [facility] [address] [place] [address] Dr. Garfield Nelson [facility] echo transthoracicon [facility] echo transthoracic [facility] [place] [address] [place] [address] Echocardiogram Signed Patient: Sierra Alberts MR#: [id number] : 1965 Acct:[id number] Age/Sex: 56 / F ADM Date: 01/02/22 Loc: Room: Type: [facility] Attending Dr: Patricia SALEH Ordering Provider: THERESE Shaw Date of Service: 01/02/22/ [facility] echo transthoracic: Pulmonary fibrosis. PHTN. SOB. [facility]PC drug therapy. Copies [facility]: Mayte Way [facility] BSA: 1.5 m2 BP: 115/83 mmHg HR: 75 Reason For Study: Pulmonary fibrosis. PHTN. SOB. [facility] drug therapy. History: pulmonary hypertension Interpretation Summary [...] 01/02/22 1254 Signed By: Mayte Way MD, [facility] 01/02/[address] [facility] PAP ACOG PANEL 2: 30 to 65on 12-23-2021 . . Normal [facility] Comment on above: Result Comment: Perf ormed at: WB Performed By: #### M Farhat, PHOS, CMP #### [facility] [address] [address] [address] Garfield Nelson Age Gdln ACOG Testing 30-65 [facility] Comment on above: Performed By: #### M Farhat, PHOS, CMP #### [facility] [address] [address] [address] Garfield Nelson DIAGNOSIS: Comment Normal [facility] Comment on above: Result Comment: NEGA TIVE FOR INTRAEPITHELIAL LESION OR MALIGNANCY. CELLULAR CHANGES ASSOCIATED WITH ATROPHY ARE PRESENT. Performed at: WB Performed By: #### M Farhat PHOS, CMP #### [facility] [address] [address] [address] Garfield Nelosn HPV Aptima Negative Normal [facility] Comment on above: Result Comment: This nucleic acid amplification test detects fourteen high-risk HPV types (16,18,31,33,35,39,45,51,52,56,58,59,66,68) without differentiation. Performed at: =G Performed By: #### M Farhat, PHOS, CMP #### [facility] [address] [address] [address] Garfield Nelson Methodology: Comment Normal [facility] Comment on above: Result Comment: This liquid based ThinPrep(R) pap test was screened with the use of an image guided system. Performed at: WB Performed By: #### M G, PHOS, CMP #### [facility] [address] [address] [address] Garfield Nelson Note: Comment Normal [facility] Comment on above: Result Comment: The [...] By: #### M RAKESH Dougherty, CMP #### [facility] [address] [place] [address] Dr. Garfield Nelson Performed by: Comment Normal [facility] Comment on above: Result Comment: Dinesh Noble, Research Associate (ASCP) Performed at: WB Performed By: #### RAKESH Feng, CMP #### [facility] [address] [place] [address] Dr. Garfield Nelson Specimen adequacy: Comment Normal [facility] Comment on above: Result Comment: Sati sfactory for evaluation. Endocervical component may not be distinguished in cases of atrophy. Performed at: WB Performed By: #### M RAKESH Dougherty, CMP #### [facility] [address] [place] [address] Dr. Garfield Nelson CBC AUTO DIFFon 12-17-2021 BASO # 0.0 103/ul Normal 0.0-0.1 [facility] Comment on above: Performed By: #### V ITAD #### [facility] [address] [place] [address] Dr. Garfield Nelson Basophils/100 WBC (Bld) 0.6 % Normal 0.2-2.0 [facility] Comment on above: Performed By: #### V ITAD #### [facility] [address] [place] [address] Dr. Garfield Nelson EO # 0.2 103/ul Normal 0.0-0.7 [facility] Comment on above: Performed By: #### V ITAD #### [facility] [address] [place] [address] Dr. Garfield Nelson Eosinophils/100 WBC (Bld) 2.8 % Normal 0.9-7.0 [facility] Comment on above: Performed By: #### V ITAD #### [facility] [address] [place] [address] Dr. Garfield Nelson Erythrocyte distribution width (RBC) [Ratio] 14.0 % Normal 11.0-15.0 [facility] Comment on above: Performed By: #### V ITAD #### [facility] [address] [place] [address] Dr. Garfield Nelson Hematocrit (Bld) [Volume fraction] 42.3 % Normal 36.0-48.0 [facility] Comment on above: Performed By: #### V ITAD #### [facility] [address] [place] [address] Dr. Garfield Nelson Hemoglobin (Bld) [Mass/Vol] 13.3 g/dL Normal 12.0-16.0 [facility] Comment on above: Performed By: #### V ITAD #### [facility] [address] [place] [address] Dr. Garfield Nelson IG # 0.02 10e3/ul Normal 0.00-0.03 [facility] Comment on above: Performed By: #### V ITAD #### [facility] [address] [place] [address] Dr. Garfield Nelson IG % 0.3 % Normal 0.0-0.5 [facility] Comment on above: Performed By: #### V ITAD #### [facility] [address] [place] [address] Dr. Garfield Nelson LYMPH # 1.9 103/ul Normal 1.2-3.8 [facility] Comment on above: Performed By: #### V ITAD #### [facility] [address] [place] [address] Dr. Garfield Nelson Lymphocytes/100 WBC (Bld) 30.0 % Normal 20.5-60.0 [facility] Comment on above: Performed By: #### V ITAD #### [facility] [address] [place] [address] Dr. Garfield Nelson MANUAL DIFF REQ NO Normal [facility] Comment on above: Performed By: #### V ITAD #### [facility] [address] [address] [address] Garfield Nelson MCH (RBC) [Entitic mass] 28.5 pg Normal 26.7-34.0 [facility] Comment on above: Performed By: #### V ITAD #### [facility] [address] [place] [address] Dr. Garfield Nelson MCHC (RBC) [Mass/Vol] 31.4 g/dL Normal 29.9-35.2 [facility] Comment on above: Performed By: #### V ITAD #### [facility] [address] [place] [address] Dr. Garfield Nelson MCV (RBC) [Entitic vol] 90.8 fL Normal 81.0-99.0 [facility] Comment on above: Performed By: #### V ITAD #### [facility] [address] [place] [address] Dr. Garfield Nelson MONO # 0.9 103/ul Critically high 0.3-0.8 [facility] Comment on above: Performed By: #### V ITAD #### [facility] [address] [place] [address] Dr. Garfield Nelson Monocytes/100 WBC (Bld) 13.4 % Critically high 1.7-12.0 [facility] Comment on above: Performed By: #### V ITAD #### [facility] [address] [place] [address] Dr. Garfield Nelson NEUT # 3.4 103/ul Normal 1.4-6.5 [facility] Comment on above: Performed By: #### V ITAD #### [facility] [address] [place] [address] Dr. Garfield Nelson Neutrophils/100 WBC (Bld) 52.9 % Normal 43.0-75.0 [facility] Comment on above: Performed By: #### V ITAD #### [facility] [address] [place] [address] Dr. Garfield Nelson Platelet mean volume (Bld) [Entitic vol] 12.2 fL Normal 9.5-13.5 [facility] Comment on above: Performed By: #### V ITAD #### [facility] [address] [address] [address] Garfield Nelson PLT 258 103/ul Normal 150-450 [facility] Comment on above: Performed By: #### V ITAD #### [facility] [address] [address] [address] Garfield Nelson RBC 4.66 106/ul Normal 4.20-5.40 [facility] Comment on above: Performed By: #### V ITAD #### [facility] [address] [address] [address] Garfield Nelson WBC 6.3 103/ul Normal 4.0-11.0 [facility] Comment on above: Performed By: #### V ITAD #### [facility] [address] [place] [address] Dr. Garfield Nelson LIPID PROFILEon 12-17-2021 CHOL-HDL RATIO NORM SEE BELOW Normal [facility] Comment on above: Result Comment: 3.3 - 4.4 LOW RISK 4.4 - 7.1 AVERAGE RISK 7.1 - 11.0 MODERATE RISK >11.0 HIGH RISK Performed By: #### RAKESH Feng, CMP #### [facility] [address] [place] [address] Dr. Garfield Nelson Cholesterol [Mass/Vol] 204 mg/dL Critically high <=200 [facility] Comment on above: Performed By: #### DAVID FengS, CMP #### [facility] [address] [address] [address] Garfield Nelson Cholesterol in HDL [Mass/Vol] 75 mg/dL Critically high 40-60 [facility] Comment on above: Performed By: #### DAVID FengS, CMP #### [facility] [address] [place] [address] Dr. Garfield Nelson Cholesterol in LDL [Mass/Vol] 121.0 mg/dL Normal [facility] Comment on above: Performed By: #### Sekou Dougherty PHOS, CMP #### [facility] [address] [address] [address] Garfield Nelson Cholesterol.total/Ch olesterol in HDL [Mass ratio] 2.7 {ratio} Normal [facility] Comment on above: Performed By: #### DAVID FengS, CMP #### [facility] [address] [address] [address] Garfield Nelson HDL NORMAL > or = 60 mg/dl - LO W CARDIOVASCULAR RISK <40 mg/dl - HIGH CARDIOVASCULAR RISK Normal [facility] Comment on above: Performed By: #### Sekou Dougherty PHOS, CMP #### [facility] [address] [address] [address] Garfield Nelson LDL CALC NORMAL SEE BELOW Normal [facility] Comment on above: Result Comment: <100 mg/dl OPTIMAL 100 - 129 mg/dl NEAR OR ABOVE OPTIMAL 130 - 159 mg/dl BORDERLINE HIGH 160 - 189 mg/dl HIGH >190 mg/dl VERY HIGH Performed By: #### DAVID FengS, CMP #### [facility] [address] [address] [address] Garfield Nelson Triglyceride [Mass/Vol] 40 mg/dL Normal <=150 [facility] Comment on above: Performed By: #### RAKESH Feng, CMP #### [facility] [address] [address] [address] Garfield Nelson VLDL CALC 8.0 mg/dL Normal [facility] Comment on above: Performed By: #### RAKESH Feng, CMP #### [facility] [address] [address] [address] Garfield Nelson PROF 14(COMP METB)on 022 Albumin [Mass/Vol] 3.8 g/dL Normal 3.4-5.0 [facility] Comment on above: Performed By: #### RAKESH Feng, CMP #### [facility] [address] [place] [address] Dr. Garfield Nelson Albumin/Globulin [Mass ratio] 0.9 {ratio} Normal [facility] Comment on above: Performed By: #### Sekou Dougherty PHOS, CMP #### [facility] [address] [address] [address] Garfield Nelson ALP [Catalytic activity/Vol] 65 U/L Normal 46-116 [facility] Comment on above: Performed By: #### M DAVID DoughertyS, CMP #### [facility] [address] [place] [address] Dr. Garfield Nelson ALT [Catalytic activity/Vol] 19 U/L Normal 14-59 [facility] Comment on above: Performed By: #### M Farhat PHOS, CMP #### [facility] [address] [place] [address] Dr. Garfield Nelson Anion gap [Moles/Vol] 10.6 mmol/L Normal [facility] Comment on above: Performed By: #### DAVID FengS, CMP #### [facility] [address] [place] [address] Dr. Garfield Nelson AST [Catalytic activity/Vol] 18 U/L Normal 15-37 [facility] Comment on above: Performed By: #### DAVID FengS, CMP #### [facility] [address] [place] [address] Dr. Garfield Nelson Bilirubin [Mass/Vol] 0.5 mg/dL Normal 0.2-1.0 [facility] Comment on above: Performed By: #### RAKSEH Feng, CMP #### [facility] [address] [place] [address] Dr. Garfield Nelson Calcium [Mass/Vol] 8.9 mg/dL Normal 8.5-10.1 [facility] Comment on above: Performed By: #### Sekou Dougherty PHOS, CMP #### [facility] [address] [place] [address] Dr. Garfield Nelson Chloride [Moles/Vol] 106 mmol/L Normal 98-107 [facility] Comment on above: Performed By: #### Sekou Dougherty PHOS, CMP #### [facility] [address] [place] [address] Dr. Garfield Nelson CO2 [Moles/Vol] 28.6 mmol/L Normal 21.0-32.0 [facility] Comment on above: Performed By: #### Sekou Dougherty PHOS, CMP #### [facility] [address] [address] [address] Garfield Nelson Creatinine [Mass/Vol] 0.88 mg/dL Normal 0.55-1.02 [facility] Comment on above: Performed By: #### RAKESH Feng, CMP #### [facility] [address] [address] [address] Garfield Nelson EGFR-AF GIBRALTARIAN >60 Normal >=60 [facility] Comment on above: Performed By: #### RAKESH Feng, CMP #### [facility] [address] [address] [address] Garfield Nelson EGFR-NON AF GIBRALTARIAN >60 Normal >=60 [facility] Comment on above: Performed By: #### RAKESH Feng, CMP #### [facility] [address] [place] [address] Dr. Garfield Nelson Globulin (S) [Mass/Vol] 4.1 g/dL Normal [facility] Comment on above: Performed By: #### RAKESH Feng, CMP #### [facility] [address] [address] [address] Garfield Nelson Glucose [Mass/Vol] 93 mg/dL Normal 74-106 [facility] Comment on above: Performed By: #### RAKESH Feng, CMP #### [facility] [address] [address] [address] Garfield Nelson Potassium [Moles/Vol] 4.2 mmol/L Normal 3.5-5.1 [facility] Comment on above: Performed By: #### RAKESH Feng, CMP #### [facility] [address] [address] [address] Garfield Nelson Protein [Mass/Vol] 7.9 g/dL Normal 6.4-8.2 [facility] Comment on above: Performed By: #### DAVID FengS, CMP #### [facility] [address] [address] [address] Garfield Nelson Sodium [Moles/Vol] 141 mmol/L Normal 136-145 [facility] Comment on above: Performed By: #### RAKESH Feng, CMP #### [facility] [address] [place] [address] Dr. Garfield Nelson Urea nitrogen [Mass/Vol] 22.0 mg/dL Critically high 7.0-18.0 [facility] Comment on above: Performed By: #### RAKESH Feng, CMP #### [facility] [address] [place] [address] Dr. Garfield Nelson Urea nitrogen/Creatinine [Mass ratio] 25.0 mg/mg Normal [facility] Comment on above: Performed By: #### RAKESH Feng CMP #### [facility] [address] [place] [address] Dr. Garfield Nelson TSHon 12-17-2021 TSH 2.939 uIU/mL Normal 0.358-3.740 [facility] Comment on above: Performed By: #### RAKESH Feng CMP #### [facility] [address] [place] [address] Dr. Garfield Nelson VITAMIN D 25 OHon 12-17-2021 VIT D 25-OH 34.5 ng/mL Normal [facility] Comment on above: Performed By: #### V ITAD #### [facility] [address] [place] [address] Dr. Garfield Nelson VIT D RANGES SEE BELOW Normal [facility] Comment on above: Result Comment: <20 ng/mL Vit D deficient 20 - <30 ng/mL Vit D insufficient 30 - 100 ng/mL Vit D sufficient >100 ng/mL Potential Toxicity Performed By: #### V ITAD #### [facility] [address] [place] [address] Dr. Garfield Nelson C3 and C4 COMPLEMENTon 11-14 Complement C3, Serum 109 mg/dL Normal 82-167 [facility] Comment on above: Performed By: #### C SUITE #### [facility] [address] [place] [address] Dr. Garfield Nelson Complement C4, Serum 19 mg/dL Normal 12-38 [facility] Comment on above: Performed By: #### C SUITE #### [facility] [address] [address] [address] Garfield Nelson MG MAMM SCREEN 3D PATRICA CADon 11-14-2021 MG MAMM SCREEN 3D PATRICA CAD Patient: SIERRA ALBERTS Exam Date: 11/14/2021 : 1965 Gender:F Ordering : DR JUDITH MARTINEZ . Admission #: [id number] Family : Order #: [id number] CLICK HERE TO VIEW EXAM RADIOLOGY REPORT [...] breast cancer at age 60. LOCATION: [facility] BREAST COMPOSITION: Extremely dense, which [...] MD on 11/14/2021 at 12:25 Normal [facility] COMPLEMENT TOTAL (CH50)on Complement, Total (CH50) >60 Normal >41 [facility] Comment on above: Result Comment: [...] values. Performed By: #### C H50T #### [facility] [address] [address] [address] Garfield Nelson CBC AUTO DIFFon 11-12-2021 BASO # 0.1 103/ul Normal 0.0-0.1 [facility] Comment on above: Performed By: #### C SUITE #### [facility] [address] [place] [address] Dr. Garfield Nelson Basophils/100 WBC (Bld) 0.7 % Normal 0.2-2.0 [facility] Comment on above: Performed By: #### C SUITE #### [facility] [address] [place] [address] Dr. Garfield Nelson EO # 0.2 103/ul Normal 0.0-0.7 [facility] Comment on above: Performed By: #### C SUITE #### [facility] [address] [place] [address] Dr. Garfiedl Nelson Eosinophils/100 WBC (Bld) 2.6 % Normal 0.9-7.0 [facility] Comment on above: Performed By: #### C SUITE #### [facility] [address] [place] [address] Dr. Garfield Nelson Erythrocyte distribution width (RBC) [Ratio] 14.1 % Normal 11.0-15.0 [facility] Comment on above: Performed By: #### C SUITE #### [facility] [address] [place] [address] Dr. Garfield Nelson Hematocrit (Bld) [Volume fraction] 42.2 % Normal 36.0-48.0 [facility] Comment on above: Performed By: #### C SUITE #### [facility] [address] [place] [address] Dr. Garfield Nelson Hemoglobin (Bld) [Mass/Vol] 13.2 g/dL Normal 12.0-16.0 [facility] Comment on above: Performed By: #### C SUITE #### [facility] [address] [place] [address] Dr. Garfield Nelson IG # 0.02 10e3/ul Normal 0.00-0.03 [facility] Comment on above: Performed By: #### C SUITE #### [facility] [address] [place] [address] Dr. Garfield Nelson IG % 0.3 % Normal 0.0-0.5 [facility] Comment on above: Performed By: #### C SUITE #### [facility] [address] [place] [address] Dr. Garfield Nelson LYMPH # 2.1 103/ul Normal 1.2-3.8 [facility] Comment on above: Performed By: #### C SUITE #### [facility] [address] [place] [address] Dr. Garfield Nelson Lymphocytes/100 WBC (Bld) 28.2 % Normal 20.5-60.0 [facility] Comment on above: Performed By: #### C SUITE #### [facility] [address] [place] [address] Dr. Garfield Nelson MANUAL DIFF REQ NO Normal [facility] Comment on above: Performed By: #### C SUITE #### [facility] [address] [place] [address] Dr. Garfield Nelson MCH (RBC) [Entitic mass] 28.3 pg Normal 26.7-34.0 [facility] Comment on above: Performed By: #### C SUITE #### [facility] [address] [place] [address] Dr. Garfield Nelson MCHC (RBC) [Mass/Vol] 31.3 g/dL Normal 29.9-35.2 [facility] Comment on above: Performed By: #### C SUITE #### [facility] [address] [place] [address] Dr. Garfield Nelson MCV (RBC) [Entitic vol] 90.6 fL Normal 81.0-99.0 [facility] Comment on above: Performed By: #### C SUITE #### [facility] [address] [place] [address] Dr. Garfield Nelson MONO # 1.0 103/ul Critically high 0.3-0.8 [facility] Comment on above: Performed By: #### C SUITE #### [facility] [address] [place] [address] Dr. Garfield Nelson Monocytes/100 WBC (Bld) 13.9 % Critically high 1.7-12.0 [facility] Comment on above: Performed By: #### C SUITE #### [facility] [address] [place] [address] Dr. Garfield Nelson NEUT # 4.0 103/ul Normal 1.4-6.5 [facility] Comment on above: Performed By: #### C SUITE #### [facility] [address] [place] [address] Dr. Garfield Nelson Neutrophils/100 WBC (Bld) 54.3 % Normal 43.0-75.0 [facility] Comment on above: Performed By: #### C SUITE #### [facility] [address] [place] [address] Dr. Garfield Nelson Platelet mean volume (Bld) [Entitic vol] 12.3 fL Normal 9.5-13.5 [facility] Comment on above: Performed By: #### C SUITE #### [facility] [address] [place] [address] Dr. Garfield Nelson PLT 256 103/ul Normal 150-450 [facility] Comment on above: Performed By: #### C SUITE #### [facility] [address] [place] [address] Dr. Garfield Nelson RBC 4.66 106/ul Normal 4.20-5.40 [facility] Comment on above: Performed By: #### C SUITE #### [facility] [address] [place] [address] Dr. Garfield Nelson WBC 7.4 103/ul Normal 4.0-11.0 [facility] Comment on above: Performed By: #### C SUITE #### [facility] [address] [place] [address] Dr. Garfield Nelson MAGNESIUMon 11-12-2021 Magnesium [Mass/Vol] 2.0 mg/dL Normal 1.8-2.4 [facility] Comment on above: Performed By: #### M G, PHOS, CMP #### [facility] [address] [place] [address] Dr. Garfield Nelson PHOSPHORUSon 11-12-2021 Phosphate [Mass/Vol] 3.4 mg/dL Normal 2.6-4.7 [facility] Comment on above: Performed By: #### RAKESH Feng, CMP #### [facility] [address] [address] [address] Garfield Nelson PROF 14(COMP METB)on 022 Albumin [Mass/Vol] 3.9 g/dL Normal 3.4-5.0 [facility] Comment on above: Performed By: #### RAKESH Feng, CMP #### [facility] [address] [address] [address] Garfield Nelson Albumin/Globulin [Mass ratio] 1.0 {ratio} Normal [facility] Comment on above: Performed By: #### RAKESH Feng, CMP #### [facility] [address] [place] [address] Dr. Garfield Nelson ALP [Catalytic activity/Vol] 68 U/L Normal 46-116 [facility] Comment on above: Performed By: #### RAKESH Feng, CMP #### [facility] [address] [place] [address] Dr. Garfield Nelson ALT [Catalytic activity/Vol] 16 U/L Normal 14-59 [facility] Comment on above: Performed By: #### RAKESH Feng, CMP #### [facility] [address] [place] [address] Dr. Garfield Nelson Anion gap [Moles/Vol] 9.7 mmol/L Normal [facility] Comment on above: Performed By: #### RAKESH Feng, CMP #### [facility] [address] [place] [address] Dr. Garfield Nelson AST [Catalytic activity/Vol] 17 U/L Normal 15-37 [facility] Comment on above: Performed By: #### RAKESH Feng, CMP #### [facility] [address] [place] [address] Dr. Garfield Nelson Bilirubin [Mass/Vol] 0.4 mg/dL Normal 0.2-1.0 [facility] Comment on above: Performed By: #### RAKESH Feng, CMP #### [facility] [address] [address] [address] Garfield Nelson Calcium [Mass/Vol] 9.0 mg/dL Normal 8.5-10.1 [facility] Comment on above: Performed By: #### M G, PHOS, CMP #### [facility] [address] [address] [address] Garfield Nelson Chloride [Moles/Vol] 103 mmol/L Normal 98-107 [facility] Comment on above: Performed By: #### M G, PHOS, CMP #### [facility] [address] [address] [address] Garfield Nelson CO2 [Moles/Vol] 30.2 mmol/L Normal 21.0-32.0 [facility] Comment on above: Performed By: #### M G, PHOS, CMP #### [facility] [address] [address] [address] Garfield Nelson Creatinine [Mass/Vol] 0.92 mg/dL Normal 0.55-1.02 [facility] Comment on above: Performed By: #### M G, PHOS, CMP #### [facility] [address] [place] [address] Dr. Garfield Nelson EGFR-AF GIBRALTARIAN >60 Normal >=60 [facility] Comment on above: Performed By: #### M G, PHOS, CMP #### [facility] [address] [address] [address] Garfield Nelson EGFR-NON AF GIBRALTARIAN >60 Normal >=60 [facility] Comment on above: Performed By: #### M G, PHOS, CMP #### [facility] [address] [address] [address] Garfield Nelson Globulin (S) [Mass/Vol] 3.8 g/dL Normal [facility] Comment on above: Performed By: #### M G, PHOS, CMP #### [facility] [address] [address] [address] Garfield Nelson Glucose [Mass/Vol] 101 mg/dL Normal 74-106 [facility] Comment on above: Performed By: #### M RAKESH Dougherty, CMP #### [facility] [address] [address] [address] Garfield Nelson Potassium [Moles/Vol] 3.9 mmol/L Normal 3.5-5.1 [facility] Comment on above: Performed By: #### RAKESH Feng, CMP #### [facility] [address] [address] [address] Garfield Nelson Protein [Mass/Vol] 7.7 g/dL Normal 6.4-8.2 [facility] Comment on above: Performed By: #### RAKESH Feng, CMP #### [facility] [address] [place] [address] Dr. Garfield Nelson Sodium [Moles/Vol] 139 mmol/L Normal 136-145 [facility] Comment on above: Performed By: #### RAKESH Fneg, CMP #### [facility] [address] [place] [address] Dr. Garfield Nelson Urea nitrogen [Mass/Vol] 16.0 mg/dL Normal 7.0-18.0 [facility] Comment on above: Performed By: #### RAKESH Feng, CMP #### [facility] [address] [place] [address] Dr. Garfield Nelson Urea nitrogen/Creatinine [Mass ratio] 17.4 mg/mg Normal [facility] Comment on above: Performed By: #### RAKESH Feng, CMP #### [facility] [address] [place] [address] Dr. Garfield Nelson SED RATE WESTERGRENon 2021 SED RATE 58 mm/hr Critically high <=30 [facility] Comment on above: Performed By: #### C SUITE #### [facility] [address] [place] [address] Dr. Garfield Nelson UA RANDOM W/MICROSCOPICon BACTERIA NONE SEEN Normal NONE SEEN [facility] Comment on above: Performed By: #### V ITAD #### [facility] [address] [place] [address] Dr. Garfield Nelson Bilirubin Ql (U) Negative Normal NEGATIVE [facility] Comment on above: Performed By: #### V ITAD #### [facility] [address] [place] [address] Dr. Garfield Nelson CAST NONE SEEN Normal NONE SEEN [facility] Comment on above: Performed By: #### V ITAD #### [facility] [address] [place] [address] Dr. Garfield Nelson Clarity (U) CLEAR Normal CLEAR [facility] Comment on above: Performed By: #### V ITAD #### [facility] [address] [place] [address] Dr. Garfield Nleson Color (U) LT. YELLOW Normal YELLOW [facility] Comment on above: Performed By: #### V ITAD #### [facility] [address] [place] [address] Dr. Garfield Nelson Crystals LM Nom (Urine sed) NONE SEEN Normal NONE SEEN [facility] Comment on above: Performed By: #### V ITAD #### [facility] [address] [place] [address] Dr. Garfield Nelson Epithelial cells LM Ql (Urine sed) NONE SEEN Normal NONE SEEN /RARE [facility] Comment on above: Performed By: #### V ITAD #### [facility] [address] [place] [address] Dr. Garfield Nelson Glucose Ql (U) Negative Normal NEGATIVE [facility] Comment on above: Performed By: #### V ITAD #### [facility] [address] [place] [address] Dr. Garfield Nelson Hemoglobin Ql (U) Negative Normal NEGATIVE [facility] Comment on above: Performed By: #### V ITAD #### [facility] [address] [place] [address] Dr. Garfield Nelson Ketones Ql (U) Negative Normal NEGATIVE [facility] Comment on above: Performed By: #### V ITAD #### [facility] [address] [place] [address] Dr. Garfield Nelson LEUKOCYTES Negative Normal NEGATIVE [facility] Comment on above: Performed By: #### V ITAD #### [facility] [address] [place] [address] Dr. Garfield Nelson MUCOUS NONE SEEN Normal NONE SEEN [facility] Comment on above: Performed By: #### V ITAD #### [facility] [address] [place] [address] Dr. Garfield Nelson Nitrite Ql (U) Negative Normal NEGATIVE [facility] Comment on above: Performed By: #### V ITAD #### [facility] [address] [place] [address] Dr. Garfield Nelson pH (U) 6.0 [pH] Normal 5-9 [facility] Comment on above: Performed By: #### V ITAD #### [facility] [address] [place] [address] Dr. Garfield Nelson RBC 0-2 Normal 0-2 [facility] Comment on above: Performed By: #### V ITAD #### [facility] [address] [place] [address] Dr. Garfield Nelson SPEC GRAVITY 1.020 Normal 1.005-<=1.025 [facility] Comment on above: Performed By: #### V ITAD #### [facility] [address] [place] [address] Dr. Garfield Nelson UA PROTEIN Negative Normal NEGATIVE/ TRACE [facility] Comment on above: Performed By: #### V ITAD #### [facility] [address] [place] [address] Dr. Garfield Nelson Urobilinogen Qn (U) 0.2 {Marquise'U}/dL Normal 0.2 - 1. 0 [facility] Comment on above: Performed By: #### V ITAD #### [facility] [address] [place] [address] Dr. Garfield Nelson WBC NONE SEEN Normal NONE SEEN [facility] Comment on above: Performed By: #### V ITAD #### [facility] [address] [place] [address] Dr. Garfield Nelson C3 and C4 COMPLEMENTon 08-08 Complement C3, Serum 131 mg/dL Normal 82-167 [facility] Comment on above: Performed By: #### C SUITE #### [facility] [address] [place] [address] Dr. Garfield Nelson Complement C4, Serum 18 mg/dL Normal 12-38 [facility] Comment on above: Performed By: #### C SUITE #### [facility] [address] [place] [address] Dr. Garfield Nelson COMPLEMENT TOTAL (CH50)on Complement, Total (CH50) >60 Normal >41 [facility] Comment on above: Result Comment: [...] By: #### M RAKESH Dougherty, CMP #### [facility] [address] [place] [address] Dr. Garfield Nelson CBC AUTO DIFFon 08-07-2021 BASO # 0.1 103/ul Normal 0.0-0.1 [facility] Comment on above: Performed By: #### V ITAD #### [facility] [address] [place] [address] Dr. Garfield Nelson Basophils/100 WBC (Bld) 0.6 % Normal 0.2-2.0 [facility] Comment on above: Performed By: #### V ITAD #### [facility] [address] [place] [address] Dr. Garfield Nelson EO # 0.1 103/ul Normal 0.0-0.7 [facility] Comment on above: Performed By: #### V ITAD #### [facility] [address] [place] [address] Dr. Garfield Nelson Eosinophils/100 WBC (Bld) 1.1 % Normal 0.9-7.0 [facility] Comment on above: Performed By: #### V ITAD #### [facility] [address] [place] [address] Dr. Garfield Nelson Erythrocyte distribution width (RBC) [Ratio] 14.5 % Normal 11.0-15.0 [facility] Comment on above: Performed By: #### V ITAD #### [facility] [address] [place] [address] Dr. Garfield Nelson Hematocrit (Bld) [Volume fraction] 40.6 % Normal 36.0-48.0 [facility] Comment on above: Performed By: #### V ITAD #### [facility] [address] [place] [address] Dr. Garfield Nelson Hemoglobin (Bld) [Mass/Vol] 12.8 g/dL Normal 12.0-16.0 [facility] Comment on above: Performed By: #### V ITAD #### [facility] [address] [place] [address] Dr. Garfield Nelson IG # 0.02 10e3/ul Normal 0.00-0.03 [facility] Comment on above: Performed By: #### V ITAD #### [facility] [address] [place] [address] Dr. Garfeild Nelson IG % 0.2 % Normal 0.0-0.5 [facility] Comment on above: Performed By: #### V ITAD #### [facility] [address] [place] [address] Dr. Garfield Nelson LYMPH # 1.7 103/ul Normal 1.2-3.8 [facility] Comment on above: Performed By: #### V ITAD #### [facility] [address] [place] [address] Dr. Garfield Nelson Lymphocytes/100 WBC (Bld) 20.0 % Critically low 20.5-60.0 [facility] Comment on above: Performed By: #### V ITAD #### [facility] [address] [place] [address] Dr. Garfield Nelson MANUAL DIFF REQ NO Normal [facility] Comment on above: Performed By: #### V ITAD #### [facility] [address] [place] [address] Dr. Garfield Nelson MCH (RBC) [Entitic mass] 28.4 pg Normal 26.7-34.0 [facility] Comment on above: Performed By: #### V ITAD #### [facility] [address] [place] [address] Dr. Garfield Nelson MCHC (RBC) [Mass/Vol] 31.5 g/dL Normal 29.9-35.2 [facility] Comment on above: Performed By: #### V ITAD #### [facility] [address] [place] [address] Dr. Garfield Nelson MCV (RBC) [Entitic vol] 90.0 fL Normal 81.0-99.0 [facility] Comment on above: Performed By: #### V ITAD #### [facility] [address] [place] [address] Dr. Garfield Nelson MONO # 0.9 103/ul Critically high 0.3-0.8 [facility] Comment on above: Performed By: #### V ITAD #### [facility] [address] [place] [address] Dr. Garfield Nelson Monocytes/100 WBC (Bld) 10.9 % Normal 1.7-12.0 [facility] Comment on above: Performed By: #### V ITAD #### [facility] [address] [place] [address] Dr. Garfield Nelson NEUT # 5.7 103/ul Normal 1.4-6.5 [facility] Comment on above: Performed By: #### V ITAD #### [facility] [address] [place] [address] Dr. Garfield Nelson Neutrophils/100 WBC (Bld) 67.2 % Normal 43.0-75.0 [facility] Comment on above: Performed By: #### V ITAD #### [facility] [address] [place] [address] Dr. Garfield Nelson Platelet mean volume (Bld) [Entitic vol] 12.1 fL Normal 9.5-13.5 [facility] Comment on above: Performed By: #### V ITAD #### [facility] [address] [place] [address] Dr. Garfield Nelson PLT 249 103/ul Normal 150-450 [facility] Comment on above: Performed By: #### V ITAD #### [facility] [address] [place] [address] Dr. Garfield Nelson RBC 4.51 106/ul Normal 4.20-5.40 [facility] Comment on above: Performed By: #### V ITAD #### [facility] [address] [place] [address] Dr. Garfield Nelson WBC 8.5 103/ul Normal 4.0-11.0 [facility] Comment on above: Performed By: #### V ITAD #### [facility] [address] [place] [address] Dr. Garfield Nelson MAGNESIUMon 08-07-2021 Magnesium [Mass/Vol] 2.0 mg/dL Normal 1.8-2.4 [facility] Comment on above: Performed By: #### C SUITE #### [facility] [address] [place] [address] Dr. Garfield Nelson PHOSPHORUSon 08-07-2021 Phosphate [Mass/Vol] 3.6 mg/dL Normal 2.6-4.7 [facility] Comment on above: Performed By: #### C SUITE #### [facility] [address] [place] [address] Dr. Garfield Nelson PROF 14(COMP METB)on 022 Albumin [Mass/Vol] 3.8 g/dL Normal 3.4-5.0 [facility] Comment on above: Performed By: #### C SUITE #### [facility] [address] [place] [address] Dr. Garfield Nelson Albumin/Globulin [Mass ratio] 0.9 {ratio} Normal [facility] Comment on above: Performed By: #### C SUITE #### [facility] [address] [place] [address] Dr. Garfield Nelson ALP [Catalytic activity/Vol] 73 U/L Normal 46-116 [facility] Comment on above: Performed By: #### C SUITE #### [facility] [address] [address] [address] Garfield Nelson ALT [Catalytic activity/Vol] 24 U/L Normal 14-59 [facility] Comment on above: Performed By: #### C SUITE #### [facility] [address] [place] [address] Dr. Garfield Nelson Anion gap [Moles/Vol] 12.0 mmol/L Normal [facility] Comment on above: Performed By: #### C SUITE #### [facility] [address] [address] [address] Garfield Nelson AST [Catalytic activity/Vol] 22 U/L Normal 15-37 [facility] Comment on above: Performed By: #### C SUITE #### [facility] [address] [place] [address] Dr. Garfield Nelson Bilirubin [Mass/Vol] 0.4 mg/dL Normal 0.2-1.0 [facility] Comment on above: Performed By: #### C SUITE #### [facility] [address] [place] [address] Dr. Garfield Nelson Calcium [Mass/Vol] 8.9 mg/dL Normal 8.5-10.1 [facility] Comment on above: Performed By: #### C SUITE #### [facility] [address] [place] [address] Dr. Garfield Nelson Chloride [Moles/Vol] 102 mmol/L Normal 98-107 [facility] Comment on above: Performed By: #### C SUITE #### [facility] [address] [place] [address] Dr. Garfield Nelson CO2 [Moles/Vol] 27.2 mmol/L Normal 21.0-32.0 [facility] Comment on above: Performed By: #### C SUITE #### [facility] [address] [place] [address] Dr. Garfield Nelson Creatinine [Mass/Vol] 0.86 mg/dL Normal 0.55-1.02 [facility] Comment on above: Performed By: #### C SUITE #### [facility] [address] [place] [address] Dr. Garfield Nelson EGFR-AF GIBRALTARIAN >60 Normal >=60 [facility] Comment on above: Performed By: #### C SUITE #### [facility] [address] [place] [address] Dr. Garfield Nelson EGFR-NON AF GIBRALTARIAN >60 Normal >=60 [facility] Comment on above: Performed By: #### C SUITE #### [facility] [address] [place] [address] Dr. Garfield Nelson Globulin (S) [Mass/Vol] 4.4 g/dL Normal [facility] Comment on above: Performed By: #### C SUITE #### [facility] [address] [place] [address] Dr. Garfield Nelson Glucose [Mass/Vol] 108 mg/dL Critically high 74-106 [facility] Comment on above: Performed By: #### C SUITE #### [facility] [address] [place] [address] Dr. Garfield Nelson Potassium [Moles/Vol] 4.2 mmol/L Normal 3.5-5.1 [facility] Comment on above: Performed By: #### C SUITE #### [facility] [address] [place] [address] Dr. Garfield Nelson Protein [Mass/Vol] 8.2 g/dL Normal 6.4-8.2 [facility] Comment on above: Performed By: #### C SUITE #### [facility] [address] [place] [address] Dr. Garfield Nelson Sodium [Moles/Vol] 137 mmol/L Normal 136-145 [facility] Comment on above: Performed By: #### C SUITE #### [facility] [address] [place] [address] Dr. Garfield Nelson Urea nitrogen [Mass/Vol] 15.0 mg/dL Normal 7.0-18.0 [facility] Comment on above: Performed By: #### C SUITE #### [facility] [address] [place] [address] Dr. Garfield Nelson Urea nitrogen/Creatinine [Mass ratio] 17.4 mg/mg Normal [facility] Comment on above: Performed By: #### C SUITE #### [facility] [address] [place] [address] Dr. Garfield Nelson SED RATE WESTERGREN 2021 SED RATE 11 mm/hr Normal <=30 [facility] Comment on above: Performed By: #### C SUITE #### [facility] [address] [place] [address] Dr. Garfield Nelson UA RANDOM W/MICROSCOPICon BACTERIA NONE SEEN Normal NONE SEEN [facility] Comment on above: Performed By: #### U AMIC #### [facility] [address] [place] [address] Dr. Garfield Nelson Bilirubin Ql (U) Negative Normal NEGATIVE [facility] Comment on above: Performed By: #### U AMIC #### [facility] [address] [place] [address] Dr. Garfield Nelson CAST NONE SEEN Normal NONE SEEN [facility] Comment on above: Performed By: #### U AMIC #### [facility] [address] [place] [address] Dr. Garfield Nelson Clarity (U) CLEAR Normal CLEAR [facility] Comment on above: Performed By: #### U AMIC #### [facility] [address] [place] [address] Dr. Garfield Nelson Color (U) LT. YELLOW Normal YELLOW [facility] Comment on above: Performed By: #### U AMIC #### [facility] [address] [place] [address] Dr. Garfield Nelson Crystals LM Nom (Urine sed) NONE SEEN Normal NONE SEEN [facility] Comment on above: Performed By: #### U AMIC #### [facility] [address] [place] [address] Dr. Garfield Nelson Epithelial cells LM Ql (Urine sed) FEW Abnormal NONE SEEN /RARE [facility] Comment on above: Performed By: #### U AMIC #### [facility] [address] [place] [address] Dr. Garfield Nelson Glucose Ql (U) Negative Normal NEGATIVE [facility] Comment on above: Performed By: #### U AMIC #### [facility] [address] [address] [address] Garfield Nelson Hemoglobin Ql (U) Negative Normal NEGATIVE [facility] Comment on above: Performed By: #### U AMIC #### [facility] [address] [address] [address] Garfield Nelson Ketones Ql (U) Negative Normal NEGATIVE [facility] Comment on above: Performed By: #### U AMIC #### [facility] [address] [address] [address] Garfield Nelson LEUKOCYTES Negative Normal NEGATIVE [facility] Comment on above: Performed By: #### U AMIC #### [facility] [address] [place] [address] Dr. Garfield Nelson MUCOUS NONE SEEN Normal NONE SEEN [facility] Comment on above: Performed By: #### U AMIC #### [facility] [address] [address] [address] Garfield Nelson Nitrite Ql (U) Negative Normal NEGATIVE [facility] Comment on above: Performed By: #### U AMIC #### [facility] [address] [address] [address] Garfield Nelson pH (U) 6.0 [pH] Normal 5-9 [facility] Comment on above: Performed By: #### U AMIC #### [facility] [address] [address] [address] Garfield Nelson RBC NONE SEEN Abnormal 0-2 [facility] Comment on above: Performed By: #### U AMIC #### [facility] [address] [address] [address] Garfield Nelson SPEC GRAVITY 1.010 Normal 1.005-<=1.025 [facility] Comment on above: Performed By: #### U AMIC #### [facility] [address] [place] [address] Dr. Garfield Nelson UA PROTEIN Negative Normal NEGATIVE/ TRACE [facility] Comment on above: Performed By: #### U AMIC #### [facility] [address] [address] [address] Garfield Nelson Urobilinogen Qn (U) 0.2 {Marquise'U}/dL Normal 0.2 - 1. 0 [facility] Comment on above: Performed By: #### U AMIC #### [facility] [address] [address] [address] Garfield Nelson WBC NONE SEEN Normal NONE SEEN [facility] Comment on above: Performed By: #### U AMIC #### [facility] [address] [address] [address] Garfield Nelson Vital Signs Date Time Vital Sign Value Performing Clinician Facility 12-18-2022 11:00-0400 Body height 157.48 cm Rich Jose Other [facility] Other 12-18-2022 11:00-0400 Body mass index (BMI) [Ratio] 19.02 kg/m2 Rich Garcia Other [facility] Other 12-18-2022 11:00-0400 Body weight 47.17 kg Rich Jose Other [facility] Other 12-18-2022 11:00-0400 Diastolic blood pressure 78 mm[Hg] Rich Jose Other [facility] Other 12-18-2022 11:00-0400 Respiratory rate 12 /min Rich Jose Other [facility] Other 12-18-2022 11:00-0400 Systolic blood pressure 117 mm[Hg] Rich Jose Other [facility] Other Encounters Encounter Date Encounter Type Care Provider Facility Start: 12-18-2022 End: 12-18-2022 ambulatory Rich Jose Other [facility] Other Start: 12-18-2022 Encounter for genera l adult medical examination without abnormal findings Rich Garcia [facility] Start: 12-18-2022 Periodic preventive med est patient 40-64yrs Rich Garcia [facility] Start: 12-05-2022 End: 12-05-2022 ambulatory Rich Garcia Other [facility] Other Start: 12-05-2022 Nursing evaluation o f patient and report Rich Garcia [facility] Start: 05-12-2022 End: 05-13-[address] NIKI BOWMAN Facility:[facility] Start: 04-11-2022 End: 04-11-2022 ambulatory Rich Garcia Other [facility] Other Start: 04-11-2022 Office outpatient vi sit 15 minutes Rich Garcia [facility] Start: 03-11-2022 End: 03-11-2022 ambulatory Rich Garcia Other [facility] Other Start: 03-11-2022 Office outpatient vi sit 15 minutes Rich Garcia [facility] Start: 02-11-2022 End: 02-12-[address] DOCTOR SMITH Facility:[facility] Start: 01-02-2022 End: 01-02-2022 ambulatory Patricia Ornelas Facility:[facility] Start: 01-02-2022 End: 01-02-2022 ambulatory DO Rich Jose Work Phone: [facility] Work Phone: Start: 01-02-2022 End: 01-02-2022 Patient encounter procedure DO Rich Garcia Work Phone: [facility] Start: 01-02-2022 ambulatory Facility:[id number] Start: 12-19-2021 Encounter for genera l adult medical examination without abnormal findings DR RICH GARCIA [facility] Start: 12-17-2021 End: 12-18-[address] RICH GARCIA Facility:[facility] Start: 12-17-2021 End: 12-18-2021 Encounter for general adult medical examination without abnormal findings DR RICH GARCIA Facility:[facility] Start: 12-16-2021 End: 12-16-[address] JUDITH MARTINEZ . Facility:[facility] Start: 12-16-2021 Gynecological examination normal Rich Garcia Other [facility] Other Start: 12-13-2021 Adult health examination Douglas Garcia Other [facility] Other Start: 11-14-2021 End: 11-15-[address] [...] e, quadrivalent, preservative free Rich Garcia Other [facility] Other 12-13-2021 influenza virus vaccine, split virus (incl. purified surface antigen) Rich Garcia Other [facility] Other 12-12-2020 COVID-19 mRNA, Comirnaty (Pfizer) DO Rich Garcia Work Phone: [facility] 12-05-2020 influenza virus vaccine, split virus (incl. purified surface antigen) Rich Garcia Other [facility] Other 05-04-2020 COVID-19 mRNA, Comirnaty (Pfizer) DO Rich Garcia Work Phone: [facility] 04-13-2020 COVID-19 mRNA, Comirnaty (Pfizer) DO Rich Garcia Work Phone: [facility] 12-08-2019 influenza virus vaccine, split virus (incl. purified surface antigen) Rich Garcia Other [facility] Other 01-05-2019 pneumococcal polysaccharide vaccine, 23 valent Rich Garcia Other [place] [facility] Other 12-03-2018 influenza virus vaccine, split virus (incl. purified surface antigen) Rich Garcia Other [facility] Other 12-15-2017 influenza virus vaccine, split virus (incl. purified surface antigen) Rich Garcia Other [facility] Other 12-10-2016 tetanus and diphther ia toxoids, adsorbed, preservative free, for adult use (5 Lf of tetanus toxoid and 2 Lf of diphtheria toxoid) Rich Garcia Other [facility] Other 12-12-2015 tetanus and diphther ia toxoids, adsorbed, preservative free, for adult use (5 Lf of tetanus toxoid and 2 Lf of diphtheria toxoid) Rich Garcia Other [facility] Other 11-15-2015 pneumococcal conjuga te vaccine, 13 valent Rich Garcia Other [facility] Other 12-19-2014 tetanus and diphther ia toxoids, adsorbed, preservative free, for adult use (5 Lf of tetanus toxoid and 2 Lf of diphtheria toxoid) Rich Garcia Other [facility] Other 12-14-2012 tetanus and diphther ia toxoids, adsorbed, preservative free, for adult use (5 Lf of tetanus toxoid and 2 Lf of diphtheria toxoid) Rich Ball Other [facility] Other Payers Date Payer Category Payer Self-pay [id number] 2021 Unknown [id number] 1965 Unknown [id number] 2.16. [id number] 1965 Unknown [id number] 2.16.84 [id number] 1965 Unknown [id number] 2.16.84 [id number] 1965 Unknown [id number] 2.16.84 [id number] 1965 Unknown [id number] 2.16.84 [id number] 1965 Unknown [id number] 2.16.84 [id number] 1965 Unknown [id number] 2.16.84 [id number] 1965 Unknown [id number] 2.16.84 [id number] 1959 Unknown [id number] 2.1 [id number] Unknown [id number] 2.16.8 [id number] Social History Date Type Detail Facility Start: 01-28-2021 Tobacco smoking status NHIS Never smoked tobacco (finding) [facility] Start: 1965 Sex Assigned At Female F [facility] Sex Assigned At Sex Assigned At Bir th [place] [facility] Other Evaluation note 12-18-2022 Note Date & [...] patient on monthly SBE and yearly mammograms. [facility] Other Evaluation note 04-11-2022 Note Date & [...] of symptoms to lungs, SOB or CP. [facility] Other Evaluation note 03-11-2022 Note Date & [...] treatment, empiric treatment of any infection necessary [facility] Other Evaluation note Note Date & Type Note Facility Evaluation note No assessment information availa [facility] Work Phone: Evaluation note Note Date & Type Note Facility Evaluation note No Information [facility] [facility] [place] Other History general Narrative - Reported Note Date & Type Note Facility History general Narrative - Reported Type Medical History Scleroderma Medical History Breast cancer screening by mammo gram Medical History Progressive systemic sclerosis Medical History Raynaud''s phenomenon without ga ngrene Medical History Age-related osteopor osis without current pathological fracture Surgical History HYSTERECTOMY Hospitalization History see surgical history [facility] Other Chief Complaint and Reason for Visit [...] section and content) DATE CREATED AUTHOR 04/05/2022 [facility] DATE CREATED AUTHOR AUTHOR'S ORGANIZ ATION 04/05/2022 [facility] DATE CREATED AUTHOR AUTHOR'S ORGANIZ ATION 05/19/2022 [facility] REASON FOR VISIT (unrecogniz ed section and content) Cough/ Sinuses [phone] inuses/ Sick [phone] [employer] FOR RECORDS PERTAINING TO PATIENTS WHO [...] BE BASED ON THE PRIMARY CLINICAL RECORDS. [facility]. provides no warranty or guarantee of the accuracy or completeness of information in this document.
[2023-12-29 08:44] LABS: Chol HDL Ratio 2.3; Cholesterol 177 mg/dL (<=200); Glucose 88 mg/dL (74-106); HDL Cholesterol 76 mg/dL (40-60); Triglycerides 35 mg/dL (<=150)
== END 2023-12-29 07:06 | disposition home or self-care (01) ==
LOC: LAB 07:05
PROVIDERS: Visit Provider Internal Medicine
DX: Z00.00 Encounter for general adult medical examination without abnormal findings (principal)
CPT/HCPCS: 36415; 80061; 82947

== ENCOUNTER 2024-01-04 22:03 | Outpatient (REF) | payer OTHER, SELFPAY ==
[2024-01-13 15:11] LABS: Age Gdln ACOG Testing Note (.); HPV Aptima Negative (Negative); IGP, Aptima HPV, rfx 16/18,45 Note (.)
== END 2024-01-04 22:04 | disposition home or self-care (01) ==
LOC: LAB 22:03
PROVIDERS: Visit Provider Physician Assistant
DX: Z01.419 Encounter for gynecological examination (general) (routine) without abnormal findings (principal)
CPT/HCPCS: 88175

== ENCOUNTER 2024-04-25 09:51 | Outpatient (OUT) | payer OTHER, SELFPAY ==
[2024-04-25 10:10] LABS: Basophils Absolute Auto 0.1 10^3/uL (0.0-0.1); Basophils Percent Auto 0.7 % (0.2-2.0); Eosinophils Absolute Auto 0.2 10^3/uL (0.0-0.7); Eosinophils Percent Auto 2.9 % (0.9-7.0); Hemoglobin 13.2 g/dL (12.0-16.0); Immature Granulocytes Abs Auto 0.01 10^3/uL (0.00-0.03); Immature Granulocytes Pct Auto 0.1 % (0.0-0.5); Lymphocytes Absolute Auto 2.1 10^3/uL (1.2-3.8); Lymphocytes Percent Auto 28.2 % (20.5-60.0); Mean Corpuscular HGB Conc 31.4 g/dL (29.9-35.2); Mean Corpuscular Hemoglobin 28.8 pg (26.7-34.0); Mean Corpuscular Volume 91.5 fL (81.0-99.0); Mean Platelet Volume 11.8 fL (9.5-13.5); Neutrophils Absolute Auto 4.1 10^3/uL (1.4-6.5); Neutrophils Percent Auto 55.1 % (43.0-75.0); Platelet Count 229 10^3/uL (150-450); Red Blood Count 4.59 10^6/uL (4.20-5.40); Red Cell Distribution Width 14.2 % (11.0-15.0); White Blood Count 7.5 10^3/uL (4.0-11.0)
--- OUTSIDE RECORDS SUMMARY | 2024-04-25 10:10 | XMS_ITS | CCD ---
Author Organization [facility] Care Team Providers Care Sales Team Manager Name Role Phone DO Rich Garcia Primary Care Provider THERESE Ornelas Attending Provider Patricia Ornelas Attending Unavailable Patricia Ornelas Admitting Unavailable Jose, Rich Primary Care Unavailable Jose, Rich Unavailable GRACIE, DR PRINCE Admitting Unavailable BOWMAN, DR PRINCE Attending Unavailable JOSE, DR BISHOP Primary Care Unavailable BOWMAN, DR PRINCE Consulting Unavailable MISC, DR DANIELS Admitting Unavailable MISC, DR DANIELS Attending Unavailable BALL, DR BISHOP Primary Care Unavailable MISC, DR DANIELS Consulting Unavailable JOSE, DR BISHOP Admitting Unavailable BALL, DR BISHOP [...] Care Unavailable MISC, DR DANIELS Consulting Unavailable Rich Garcia MD Primary Care Provider STEPHANIE KEITH Attending Unavailable Allergies Allergy Classification Reported Allergen(s) Allergy Type Date of Onset Reaction(s) Facility (1 source) Penicillins Drug allergy (disorder) 01-29-20 21 [facility] Repository (4 sources) Penicillin V Drug Allergy Unknown [facility] Other (1 source) Penicillins Drug allergy (disorder) 03-02-19 03 [facility] Repository (1 source) Allergies Reconciled Propensity to adverse reactions Unknown [facility] Other (2 sources) Substance with penicillin structure and antibacterial mechanism of action (substance) Drug allergy Comment:Rash [facility] Other (1 source) patient allergy list reviewed by nurse or physicia Propensity to adverse reactions 12-11-19 Comment:Done [facility] Other (3 sources) penicillAMINE Drug Allergy 01-04-20 Rash [facility] Medications Current Medications Medication Drug Class(es) Dates Sig (Normalized) Sig (Original) calcium carbonate 600 mg oral capsule (4 sources) take 1 tablet by mouth twice daily at mealtime Calcium Carbonate 600 MG 1 tablet with food Orally Twice a day Active calcium carbonate 1500 mg / cholecalciferol 200 unt oral tablet (5 sources) Vitamin D Start: 01-28-2021 take 1 tablet by mouth twice daily Calcium Carbonate-Vitamin D3 Active 1 TAB PO Twice daily January 28, 2021 1:00am Calcium Carb-Cho lecalciferol (Calcium 600 + D) 600-5 MG-MCG tablet Take by mouth. Active 1 ml denosumab 60 mg/ml prefilled syringe (3 sources) RANK Ligand Inhibitor Start: 12-21-2023 denosumab (Prolia) 60 MG/ML solution prefilled syringe EVERY 6 MONTHS 12/21/2023 Active folic acid 1 mg oral tablet (9 sources) Start: 01-28-2021 take 1 mg by [...] Intravenous Active methotrexate 2.5 mg oral tablet (9 sources) Folate Analog Metabolic Inhibitor Start: 01-28-2021 take 2.5 mg by mouth once daily Methotrexate Sodium Active 2.5 MG PO Daily January 28, 2021 1:00am 24 hr NIFEdipine 30 mg extended release oral tablet (9 sources) Dihydropyridine Calcium Channel Vijaya Start: 01-28-2021 [...] Inhibitor Omeprazole 20 MG (Prior Auth: Rx Ref#:[id number]) Oral for 90 Not-Taking Problems Active Problems [...] 3 Chronic Other aftercare (1 source) Other usp (current) drug therapy; 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] Onset: 3 Episodic Other [...] sinusitis, unspecified; Translations: [Acute maxillary sinusitis] Episodic Residual codes; unclassified (3 sources) Postmenopausal state; Translations: [Asymptomatic menopausal state] Resolved: 2 01-04-2024 Episodic Systemic lupus erythematosus and connective tissue [...] 11-17-2021 Episodic Residual codes; unclassified (1 source) Requires influenza virus vaccination; Translations: [Need for prophylactic vaccination and inoculation, Influenza] Onset: 12-15-2017 Episodic Spondylosis; intervertebral disc disorders; other back problems (1 source) Low back pain; Translations: [Lumbago] Onset: 05-23-2014 Episodic Results Test Name Value Interpretation Reference Range Facility IGP,APTIMA HPV,AGE GDLNon AGE GDLN ACOG TESTING Note . [facility] Comment on above: TESTS RESULT FLAG UN ITS REF RANGE LAB Clinician Provided Cytology Information Source.............Vagina No. of containers..01 ThinPrep Vial Age Algo ACOG Liz... 30 01 FLAG LEGEND: L-Low Normal,H-High Normal,LL-Alert Low,HH-Alert High <-Panic Low,>-Panic High,A-Abnormal,AA-Critical Abnormal Performed at: 01 =G [address] [id number] Betsy Harris MD, HPV APTIMA Negative Negative [facility] Comment on above: This nucleic acid am plification test detects fourteen high- risk HPV types (16,18,31,33,35,39,45,51,52,56,58,59,66,68) without differentiation. Performed at: =G - [facility] [address] [id number] Retort Loader: Betsy Harris MD, Phone: [phone] Performed at: WB - [facility], [place] [id number] Retort Loader: Betsy Harris MD, Phone: [phone] IGP, APTIMA HPV, RFX 16/18,45 Note . [facility] Comment on above: TESTS RESULT FLAG UN ITS REF RANGE LAB DIAGNOSIS: 02 NEGATIVE FOR INTRAEPITHELIAL LESION OR MALIGNANCY. REACTIVE CELLULAR CHANGES AND/OR REPAIR ARE PRESENT. CELLULAR CHANGES ASSOCIATED WITH ATROPHY ARE PRESENT. Specimen adequacy: 02 Satisfactory for evaluation. Endocervical component may not be distinguished in cases of atrophy. Performed by: 02 Savanah Brower, Folded Towel Machine Operator (ASCP) Electronically si... 02 Meghan Talley MD, Pathologist . 02 Note: Note 02 The Pap smear is a screening test designed to aid in the detection of premalignant and malignant conditions of the uterine cervix. It is not a diagnostic procedure and should not be used as the sole means of detecting cervical cancer. Both false-positive and false-negative reports do occur. Test Methodology: Note 02 This liquid based ThinPrep(R) pap test was screened with the use of an image guided system. HPV Genotype Reflex Note 02 Criteria not met, HPV Genotype not performed. FLAG LEGEND: L-Low Normal,H-High Normal,LL-Alert Low,HH-Alert High <-Panic Low,>-Panic High,A-Abnormal,AA-Critical Abnormal Performed at: 02 WB [facility] [address] [id number] Betsy Harris MD, [facility] C3 and C4 COMPLEMENTon 05-13 Complement C3, Serum 99 mg/dL Normal 82-167 [facility] Comment on above: Performed By: #### V ITAD #### [facility] [address] [address] [address] Garfield Nelson Complement C4, Serum 14 mg/dL Normal 12-38 [facility] Comment on above: Performed By: #### V ITAD #### [facility] [address] [place] [address] Dr. Garfield Nelson COMPLEMENT TOTAL (CH50)on Complement, Total (CH50) >60 Normal >41 [facility] Comment on above: Result Comment: [...] values. Performed By: #### C H50T #### [facility] [address] [place] [address] Dr. Garfield Nelson CBC AUTO DIFFon 05-12-2022 BASO # 0.0 103/ul Normal 0.0-0.1 [facility] Comment on above: Performed By: #### C BC #### [facility] [address] [place] [address] Dr. Garfield Nelson Basophils/100 WBC (Bld) 0.4 % Normal 0.2-2.0 [facility] Comment on above: Performed By: #### C BC #### [facility] [address] [place] [address] Dr. Garfield Nelson EO # 0.1 103/ul Normal 0.0-0.7 [facility] Comment on above: Performed By: #### C BC #### [facility] [address] [place] [address] Dr. Garfield Nelson Eosinophils/100 WBC (Bld) 1.1 % Normal 0.9-7.0 [facility] Comment on above: Performed By: #### C BC #### [facility] [address] [place] [address] Dr. Garfield Nelson Erythrocyte distribution width (RBC) [Ratio] 14.9 % Normal 11.0-15.0 [facility] Comment on above: Performed By: #### C BC #### [facility] [address] [place] [address] Dr. Garfield Nelson Hematocrit (Bld) [Volume fraction] 38.3 % Normal 36.0-48.0 [facility] Comment on above: Performed By: #### C BC #### [facility] [address] [place] [address] Dr. Garfield Nelson Hemoglobin (Bld) [Mass/Vol] 12.2 g/dL Normal 12.0-16.0 [facility] Comment on above: Performed By: #### C BC #### [facility] [address] [place] [address] Dr. Garfield Nelson IG # 0.03 10e3/ul Normal 0.00-0.03 [facility] Comment on above: Performed By: #### C BC #### [facility] [address] [place] [address] Dr. Garfield Nelson IG % 0.3 % Normal 0.0-0.5 [facility] Comment on above: Performed By: #### C BC #### [facility] [address] [place] [address] Dr. Garfield Nelson LYMPH # 2.1 103/ul Normal 1.2-3.8 [facility] Comment on above: Performed By: #### C BC #### [facility] [address] [place] [address] Dr. Garfield Nelson Lymphocytes/100 WBC (Bld) 22.6 % Normal 20.5-60.0 [facility] Comment on above: Performed By: #### C BC #### [facility] [address] [place] [address] Dr. Garfield Nelson MANUAL DIFF REQ NO Normal [facility] Comment on above: Performed By: #### C BC #### [facility] [address] [place] [address] Dr. Garfield Nelson MCH (RBC) [Entitic mass] 28.5 pg Normal 26.7-34.0 [facility] Comment on above: Performed By: #### C BC #### [facility] [address] [place] [address] Dr. Garfield Nelson MCHC (RBC) [Mass/Vol] 31.9 g/dL Normal 29.9-35.2 [facility] Comment on above: Performed By: #### C BC #### [facility] [address] [place] [address] Dr. Garfield Nelson MCV (RBC) [Entitic vol] 89.5 fL Normal 81.0-99.0 [facility] Comment on above: Performed By: #### C BC #### [facility] [address] [place] [address] Dr. Garfield Nelson MONO # 1.0 103/ul Critically high 0.3-0.8 [facility] Comment on above: Performed By: #### C BC #### [facility] [address] [place] [address] Dr. Garfield Nelson Monocytes/100 WBC (Bld) 10.5 % Normal 1.7-12.0 [facility] Comment on above: Performed By: #### C BC #### [facility] [address] [place] [address] Dr. Garfield Nelson NEUT # 6.1 103/ul Normal 1.4-6.5 [facility] Comment on above: Performed By: #### C BC #### [facility] [address] [place] [address] Dr. Garfield Nelson Neutrophils/100 WBC (Bld) 65.1 % Normal 43.0-75.0 [facility] Comment on above: Performed By: #### C BC #### [facility] [address] [address] [address] Garfield Nelson Platelet mean volume (Bld) [Entitic vol] 12.1 fL Normal 9.5-13.5 [facility] Comment on above: Performed By: #### C BC #### [facility] [address] [place] [address] Dr. Garfield Nelson PLT 276 103/ul Normal 150-450 [facility] Comment on above: Performed By: #### C BC #### [facility] [address] [place] [address] Dr. Garfield Nelson RBC 4.28 106/ul Normal 4.20-5.40 [facility] Comment on above: Performed By: #### C BC #### [facility] [address] [place] [address] Dr. Garfield Nelson WBC 9.4 103/ul Normal 4.0-11.0 [facility] Comment on above: Performed By: #### C BC #### [facility] [address] [place] [address] Dr. Garfield Nelson MAGNESIUMon 05-12-2022 Magnesium [Mass/Vol] 2.0 mg/dL Normal 1.8-2.4 [facility] Comment on above: Performed By: #### V ITAD #### [facility] [address] [place] [address] Dr. Garfield Nelson PHOSPHORUSon 05-12-2022 Phosphate [Mass/Vol] 3.0 mg/dL Normal 2.6-4.7 [facility] Comment on above: Performed By: #### V ITAD #### [facility] [address] [place] [address] Dr. Garfield Nelson PROF 14(COMP METB)on 023 Albumin [Mass/Vol] 3.8 g/dL Normal 3.4-5.0 [facility] Comment on above: Performed By: #### V ITAD #### [facility] [address] [place] [address] Dr. Garfield Nelson Albumin/Globulin [Mass ratio] 1.0 {ratio} Normal [facility] Comment on above: Performed By: #### V ITAD #### [facility] [address] [place] [address] Dr. Garfield Nelson ALP [Catalytic activity/Vol] 93 U/L Normal 46-116 [facility] Comment on above: Performed By: #### V ITAD #### [facility] [address] [place] [address] Dr. Garfield Nelson ALT [Catalytic activity/Vol] 19 U/L Normal 14-59 [facility] Comment on above: Performed By: #### V ITAD #### [facility] [address] [place] [address] Dr. Garfield Nelson Anion gap [Moles/Vol] 9.5 mmol/L Normal [facility] Comment on above: Performed By: #### V ITAD #### [facility] [address] [place] [address] Dr. Garfield Nelson AST [Catalytic activity/Vol] 22 U/L Normal 15-37 [facility] Comment on above: Performed By: #### V ITAD #### [facility] [address] [place] [address] Dr. Garfield Nelson Bilirubin [Mass/Vol] 0.3 mg/dL Normal 0.2-1.0 [facility] Comment on above: Performed By: #### V ITAD #### [facility] [address] [place] [address] Dr. Garfield Nelson Calcium [Mass/Vol] 8.7 mg/dL Normal 8.5-10.1 [facility] Comment on above: Performed By: #### V ITAD #### [facility] [address] [address] [address] Garfield Nelson Chloride [Moles/Vol] 104 mmol/L Normal 98-107 [facility] Comment on above: Performed By: #### V ITAD #### [facility] [address] [place] [address] Dr. Garfield Nelson CO2 [Moles/Vol] 29.0 mmol/L Normal 21.0-32.[address] [facility] Comment on above: Performed By: #### V ITAD #### [facility] [address] [address] [address] Garfield Nelson Creatinine [Mass/Vol] 0.65 mg/dL Normal 0.55-1.02 [facility] Comment on above: Performed By: #### V ITAD #### [facility] [address] [address] [address] Garfield Nelson EGFR-AF GREENLANDIC >60 Normal >=60 [facility] Comment on above: Performed By: #### V ITAD #### [facility] [address] [address] [address] Garfield Nelson EGFR-NON AF GREENLANDIC >60 Normal >=60 [facility] Comment on above: Performed By: #### V ITAD #### [facility] [address] [place] [address] Dr. Garfield Nelson Globulin (S) [Mass/Vol] 3.8 g/dL Normal [facility] Comment on above: Performed By: #### V ITAD #### [facility] [address] [place] [address] Dr. Garfield Nelson Glucose [Mass/Vol] 87 mg/dL Normal 74-106 [facility] Comment on above: Performed By: #### V ITAD #### [facility] [address] [place] [address] Dr. Garfield Nelson Potassium [Moles/Vol] 3.5 mmol/L Normal 3.5-5.1 [facility] Comment on above: Performed By: #### V ITAD #### [facility] [address] [place] [address] Dr. Garfield Nelson Protein [Mass/Vol] 7.6 g/dL Normal 6.4-8.2 [facility] Comment on above: Performed By: #### V ITAD #### [facility] [address] [place] [address] Dr. Garfield Nelson Sodium [Moles/Vol] 139 mmol/L Normal 136-145 [facility] Comment on above: Performed By: #### V ITAD #### [facility] [address] [address] [address] Garfield Nelson Urea nitrogen [Mass/Vol] 15.0 mg/dL Normal 7.0-18.0 [facility] Comment on above: Performed By: #### V ITAD #### [facility] [address] [place] [address] Dr. Garfield Nelson Urea nitrogen/Creatinine [Mass ratio] 23.1 mg/mg Normal [facility] Comment on above: Performed By: #### V ITAD #### [facility] [address] [place] [address] Dr. Garfield Nelson [facility] 39 mm/hr Critically high <=30 [facility] Comment on above: Performed By: #### M G, PHOS, CMP #### [facility] [address] [place] [address] Dr. Garfield Nelson UA RANDOM W/MICROSCOPICon BACTERIA NONE SEEN Normal NONE SEEN [facility] Comment on above: Performed By: #### C SUITE #### [facility] [address] [place] [address] Dr. Garfield Nelson Bilirubin Ql (U) Negative Normal NEGATIVE [facility] Comment on above: Performed By: #### C SUITE #### [facility] [address] [place] [address] Dr. Garfield Nelson CAST NONE SEEN Normal NONE SEEN [facility] Comment on above: Performed By: #### C SUITE #### [facility] [address] [place] [address] Dr. Garfield Nelson Clarity (U) CLEAR Normal CLEAR [facility] Comment on above: Performed By: #### C SUITE #### [facility] [address] [place] [address] Dr. Garfield Nelson Color (U) LT. YELLOW Normal YELLOW [facility] Comment on above: Performed By: #### C SUITE #### [facility] [address] [place] [address] Dr. Garfield Nelson Crystals LM Nom (Urine sed) NONE SEEN Normal NONE SEEN [facility] Comment on above: Performed By: #### C SUITE #### [facility] [address] [address] [address] Garfield Nelson Epithelial cells LM Ql (Urine sed) RARE Normal NONE SEEN /RARE [facility] Comment on above: Performed By: #### C SUITE #### [facility] [address] [place] [address] Dr. Garfield Nelson Glucose Ql (U) Negative Normal NEGATIVE [facility] Comment on above: Performed By: #### C SUITE #### [facility] [address] [address] [address] Garfield Nelson Hemoglobin Ql (U) Negative Normal NEGATIVE [facility] Comment on above: Performed By: #### C SUITE #### [facility] [address] [place] [address] Dr. Garfield Nelson Ketones Ql (U) Negative Normal NEGATIVE [facility] Comment on above: Performed By: #### C SUITE #### [facility] [address] [place] [address] Dr. Garfield Nelson LEUKOCYTES Negative Normal NEGATIVE [facility] Comment on above: Performed By: #### C SUITE #### [facility] [address] [place] [address] Dr. Garfield Nelson MUCOUS NONE SEEN Normal NONE SEEN [facility] Comment on above: Performed By: #### C SUITE #### [facility] [address] [place] [address] Dr. Garfield Nelson Nitrite Ql (U) Negative Normal NEGATIVE [facility] Comment on above: Performed By: #### C SUITE #### [facility] [address] [place] [address] Dr. Garfield Nelson pH (U) 7.0 [pH] Normal 5-9 [facility] Comment on above: Performed By: #### C SUITE #### [facility] [address] [place] [address] Dr. Garfield Nelson RBC NONE SEEN Abnormal 0-2 [facility] Comment on above: Performed By: #### C SUITE #### [facility] [address] [place] [address] Dr. Garfield Nelson SPEC GRAVITY <=1.005 Abnormal 1.005-<=1.025 [facility] Comment on above: Performed By: #### C SUITE #### [facility] [address] [place] [address] Dr. Garfield Nelson UA PROTEIN Negative Normal NEGATIVE/ TRACE [facility] Comment on above: Performed By: #### C SUITE #### [facility] [address] [place] [address] Dr. Garfield Nelson Urobilinogen Qn (U) 0.2 {Marquise'U}/dL Normal 0.2 - 1. 0 [facility] Comment on above: Performed By: #### C SUITE #### [facility] [address] [place] [address] Dr. Garfield Nelson WBC NONE SEEN Normal NONE SEEN [facility] Comment on above: Performed By: #### C SUITE #### [facility] [address] [place] [address] Dr. Garfield Nelson C3 and C4 COMPLEMENTon 02-12 Complement C3, Serum 117 mg/dL Normal 82-167 [facility] Comment on above: Performed By: #### V ITAD #### [facility] [address] [place] [address] Dr. Garfield Nelson Complement C4, Serum 20 mg/dL Normal 12-38 [facility] Comment on above: Performed By: #### V ITAD #### [facility] [address] [place] [address] Dr. Garfield Nelson COMPLEMENT TOTAL (CH50)on Complement, Total (CH50) >60 Normal >41 [facility] Comment on above: Result Comment: [...] values. Performed By: #### C H50T #### [facility] [address] [place] [address] Dr. Garfield Nelson CBC AUTO DIFFon 02-11-2022 BASO # 0.1 103/ul Normal 0.0-0.1 [facility] Comment on above: Performed By: #### V ITAD #### [facility] [address] [place] [address] Dr. Garfield Nelson Basophils/100 WBC (Bld) 0.6 % Normal 0.2-2.0 [facility] Comment on above: Performed By: #### V ITAD #### [facility] [address] [place] [address] Dr. Garfield Nelson EO # 0.1 103/ul Normal 0.0-0.7 [facility] Comment on above: Performed By: #### V ITAD #### [facility] [address] [place] [address] Dr. Garfield Nelson Eosinophils/100 WBC (Bld) 1.4 % Normal 0.9-7.0 [facility] Comment on above: Performed By: #### V ITAD #### [facility] [address] [place] [address] Dr. Garfield Nelson Erythrocyte distribution width (RBC) [Ratio] 14.2 % Normal 11.0-15.0 [facility] Comment on above: Performed By: #### V ITAD #### [facility] [address] [place] [address] Dr. Garfield Nelson Hematocrit (Bld) [Volume fraction] 39.1 % Normal 36.0-48.0 [facility] Comment on above: Performed By: #### V ITAD #### [facility] [address] [place] [address] Dr. Garfield Nelson Hemoglobin (Bld) [Mass/Vol] 12.7 g/dL Normal 12.0-16.0 [facility] Comment on above: Performed By: #### V ITAD #### [facility] [address] [place] [address] Dr. Garfield Nelson IG # 0.02 10e3/ul Normal 0.00-0.03 [facility] Comment on above: Performed By: #### V ITAD #### [facility] [address] [place] [address] Dr. Garfield Nelsno IG % 0.2 % Normal 0.0-0.5 [facility] Comment on above: Performed By: #### V ITAD #### [facility] [address] [place] [address] Dr. Garfield Nelson LYMPH # 2.0 103/ul Normal 1.2-3.8 [facility] Comment on above: Performed By: #### V ITAD #### [facility] [address] [place] [address] Dr. Garfield Nelson Lymphocytes/100 WBC (Bld) 24.9 % Normal 20.5-60.0 [facility] Comment on above: Performed By: #### V ITAD #### [facility] [address] [place] [address] Dr. Garfield Nelson MANUAL DIFF REQ NO Normal [facility] Comment on above: Performed By: #### V ITAD #### [facility] [address] [place] [address] Dr. Garfield Nelson MCH (RBC) [Entitic mass] 28.5 pg Normal 26.7-34.0 [facility] Comment on above: Performed By: #### V ITAD #### [facility] [address] [place] [address] Dr. Garfield Nelson MCHC (RBC) [Mass/Vol] 32.5 g/dL Normal 29.9-35.2 [facility] Comment on above: Performed By: #### V ITAD #### [facility] [address] [place] [address] Dr. Garfield Nelson MCV (RBC) [Entitic vol] 87.7 fL Normal 81.0-99.0 [facility] Comment on above: Performed By: #### V ITAD #### [facility] [address] [place] [address] Dr. Garfield Nelson MONO # 1.0 103/ul Critically high 0.3-0.8 [facility] Comment on above: Performed By: #### V ITAD #### [facility] [address] [address] [address] Garfield Nelson Monocytes/100 WBC (Bld) 12.3 % Critically high 1.7-12.0 [facility] Comment on above: Performed By: #### V ITAD #### [facility] [address] [place] [address] Dr. Garfield Nelson NEUT # 4.9 103/ul Normal 1.4-6.5 [facility] Comment on above: Performed By: #### V ITAD #### [facility] [address] [place] [address] Dr. Garfield Nelson Neutrophils/100 WBC (Bld) 60.6 % Normal 43.0-75.0 [facility] Comment on above: Performed By: #### V ITAD #### [facility] [address] [place] [address] Dr. Garfield Nelson Platelet mean volume (Bld) [Entitic vol] 12.0 fL Normal 9.5-13.5 [facility] Comment on above: Performed By: #### V ITAD #### [facility] [address] [place] [address] Dr. Garfield Nelson PLT 247 103/ul Normal 150-450 [facility] Comment on above: Performed By: #### V ITAD #### [facility] [address] [place] [address] Dr. Garfield Nelson RBC 4.46 106/ul Normal 4.20-5.40 [facility] Comment on above: Performed By: #### V ITAD #### [facility] [address] [place] [address] Dr. Garfield Nelson WBC 8.1 103/ul Normal 4.0-11.0 [facility] Comment on above: Performed By: #### V ITAD #### [facility] [address] [place] [address] Dr. Garfield Nelson MAGNESIUMon 02-11-2022 Magnesium [Mass/Vol] 2.0 mg/dL Normal 1.8-2.4 [facility] Comment on above: Performed By: #### DAVID FengS, CMP #### [facility] [address] [place] [address] Dr. Garfield Nelson PHOSPHORUSon 02-11-2022 Phosphate [Mass/Vol] 3.6 mg/dL Normal 2.6-4.7 [facility] Comment on above: Performed By: #### Sekou Dougherty PHOS, CMP #### [facility] [address] [place] [address] Dr. Garfield Nelson PROF 14(COMP METB)on 022 Albumin [Mass/Vol] 3.8 g/dL Normal 3.4-5.0 [facility] Comment on above: Performed By: #### RAKESH Feng, CMP #### [facility] [address] [place] [address] Dr. Garfield Nelson Albumin/Globulin [Mass ratio] 1.0 {ratio} Normal [facility] Comment on above: Performed By: #### RAKESH Feng, CMP #### [facility] [address] [place] [address] Dr. Garfield Nelson ALP [Catalytic activity/Vol] 69 U/L Normal 46-116 [facility] Comment on above: Performed By: #### DAVID FengS, CMP #### [facility] [address] [place] [address] Dr. Garfield Nelson ALT [Catalytic activity/Vol] 14 U/L Normal 14-59 [facility] Comment on above: Performed By: #### RAKESH Feng, CMP #### [facility] [address] [place] [address] Dr. Garfield Nelson Anion gap [Moles/Vol] 12.4 mmol/L Normal [facility] Comment on above: Performed By: #### DAVID FengS, CMP #### [facility] [address] [place] [address] Dr. Garfield Nelson AST [Catalytic activity/Vol] 22 U/L Normal 15-37 [facility] Comment on above: Performed By: #### DAVID FengS, CMP #### [facility] [address] [address] [address] Garfield Nelson Bilirubin [Mass/Vol] 0.3 mg/dL Normal 0.2-1.0 [facility] Comment on above: Performed By: #### Sekou Dougherty PHOS, CMP #### [facility] [address] [place] [address] Dr. Garfield Nelson Calcium [Mass/Vol] 8.6 mg/dL Normal 8.5-10.1 [facility] Comment on above: Performed By: #### Sekou Dougherty PHOS, CMP #### [facility] [address] [place] [address] Dr. Garfield Nelson Chloride [Moles/Vol] 101 mmol/L Normal 98-107 [facility] Comment on above: Performed By: #### Sekou Dougherty PHOS, CMP #### [facility] [address] [place] [address] Dr. Garfield Nelson CO2 [Moles/Vol] 29.4 mmol/L Normal 21.0-32.0 [facility] Comment on above: Performed By: #### Sekou Dougherty PHOS, CMP #### [facility] [address] [place] [address] Dr. Garfield Nelson Creatinine [Mass/Vol] 0.79 mg/dL Normal 0.55-1.02 [facility] Comment on above: Performed By: #### Sekou Dougherty PHOS, CMP #### [facility] [address] [place] [address] Dr. Garfield Nelson EGFR-AF GREENLANDIC >60 Normal >=60 [facility] Comment on above: Performed By: #### Sekou Dougherty PHOS, CMP #### [facility] [address] [place] [address] Dr. Garfiled Nelson EGFR-NON AF GREENLANDIC >60 Normal >=60 [facility] Comment on above: Performed By: #### Sekou Dougherty PHOS, CMP #### [facility] [address] [place] [address] Dr. Garfield Nelson Globulin (S) [Mass/Vol] 3.9 g/dL Normal [facility] Comment on above: Performed By: #### M Farhat PHOS, CMP #### [facility] [address] [address] [address] Garfield Nelson Glucose [Mass/Vol] 109 mg/dL Critically high 74-106 [facility] Comment on above: Performed By: #### M Farhat, PHOS, CMP #### [facility] [address] [address] [address] Garfield Nelson Potassium [Moles/Vol] 3.8 mmol/L Normal 3.5-5.1 [facility] Comment on above: Performed By: #### M Farhat, PHOS, CMP #### [facility] [address] [place] [address] Dr. Garfield Nelson Protein [Mass/Vol] 7.7 g/dL Normal 6.4-8.2 [facility] Comment on above: Performed By: #### M Farhta PHOS, CMP #### [facility] [address] [place] [address] Dr. Garfield Nelson Sodium [Moles/Vol] 139 mmol/L Normal 136-145 [facility] Comment on above: Performed By: #### M Farhat PHOS, CMP #### [facility] [address] [place] [address] Dr. Garfield Nelson Urea nitrogen [Mass/Vol] 17.0 mg/dL Normal 7.0-18.0 [facility] Comment on above: Performed By: #### M Farhat PHOS, CMP #### [facility] [address] [place] [address] Dr. Garfield Nelson Urea nitrogen/Creatinine [Mass ratio] 21.5 mg/mg Normal [facility] Comment on above: Performed By: #### M Farhat PHOS, CMP #### [facility] [address] [place] [address] Dr. Garfield Nelson SED RATE [facility] 2021 SED RATE 40 mm/hr Critically high <=30 [facility] Comment on above: Performed By: #### C SUITE #### [facility] [address] [place] [address] Dr. Garfield Nelson UA RANDOM W/MICROSCOPICon BACTERIA NONE SEEN Normal NONE SEEN [facility] Comment on above: Performed By: #### C SUITE #### [facility] [address] [place] [address] Dr. Garfield Nelson Bilirubin Ql (U) Negative Normal NEGATIVE [facility] Comment on above: Performed By: #### C SUITE #### [facility] [address] [place] [address] Dr. Garfield Nelson CAST NONE SEEN Normal NONE SEEN [facility] Comment on above: Performed By: #### C SUITE #### [facility] [address] [place] [address] Dr. Garfield Nelson Clarity (U) CLEAR Normal CLEAR [facility] Comment on above: Performed By: #### C SUITE #### [facility] [address] [place] [address] Dr. Garfield Nelson Color (U) LT. YELLOW Normal YELLOW [facility] Comment on above: Performed By: #### C SUITE #### [facility] [address] [place] [address] Dr. Garfield Nelson Crystals LM Nom (Urine sed) NONE SEEN Normal NONE SEEN [facility] Comment on above: Performed By: #### C SUITE #### [facility] [address] [place] [address] Dr. Garfield Nelson Epithelial cells LM Ql (Urine sed) NONE SEEN Normal NONE SEEN /RARE [facility] Comment on above: Performed By: #### C SUITE #### [facility] [address] [place] [address] Dr. Garfield Nelson Glucose Ql (U) Negative Normal NEGATIVE [facility] Comment on above: Performed By: #### C SUITE #### [facility] [address] [place] [address] Dr. Garfield Nelson Hemoglobin Ql (U) Negative Normal NEGATIVE [facility] Comment on above: Performed By: #### C SUITE #### [facility] [address] [place] [address] Dr. Garfield Nelson Ketones Ql (U) Negative Normal NEGATIVE [facility] Comment on above: Performed By: #### C SUITE #### [facility] [address] [place] [address] Dr. Garfield Nelson LEUKOCYTES Negative Normal NEGATIVE [facility] Comment on above: Performed By: #### C SUITE #### [facility] [address] [place] [address] Dr. Garfield Nelson MUCOUS NONE SEEN Normal NONE SEEN [facility] Comment on above: Performed By: #### C SUITE #### [facility] [address] [place] [address] Dr. Garfield Nelson Nitrite Ql (U) Negative Normal NEGATIVE [facility] Comment on above: Performed By: #### C SUITE #### [facility] [address] [place] [address] Dr. Garfield Nelson pH (U) 6.0 [pH] Normal 5-9 [facility] Comment on above: Performed By: #### C SUITE #### [facility] [address] [place] [address] Dr. Garfield Nelson RBC 0-2 Normal 0-2 [facility] Comment on above: Performed By: #### C SUITE #### [facility] [address] [place] [address] Dr. Garfield Nelson SPEC GRAVITY 1.025 Normal 1.005-<=1.025 [facility] Comment on above: Performed By: #### C SUITE #### [facility] [address] [place] [address] Dr. Garfield Nelson UA PROTEIN Negative Normal NEGATIVE/ TRACE [facility] Comment on above: Performed By: #### C SUITE #### [facility] [address] [place] [address] Dr. Garfield Nelson Urobilinogen Qn (U) 0.2 {Marquise'U}/dL Normal 0.2 - 1. 0 [facility] Comment on above: Performed By: #### C SUITE #### [facility] [address] [place] [address] Dr. Garfield Nelson WBC NONE SEEN Normal NONE SEEN [facility] Comment on above: Performed By: #### C SUITE #### [facility] [address] [address] [address] Garfield Nelson [facility] echo transthoracicon [facility] echo transthoracic [facility] [place] [address] [place], [place] [id number] Echocardiogram Signed Patient: Sierra Alberts MR#: [id number] : 1965 Acct:[id number] Age/Sex: 56 / F ADM Date: 01/02/22 Loc: Room: Type: [facility] Attending Dr: Patricia SALEH Ordering Provider: THERESE Shaw Date of Service: 01/02/22/ [facility] echo transthoracic: Pulmonary fibrosis. PHTN. 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 Copies to: Mayte Way MD, [facility] THERESE Shaw BSA: 1.5 m2 BP: 115/83 mmHg HR: 75 Reason For Study: Pulmonary fibrosis. PHTN. 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 History: pulmonary hypertension Interpretation Summary [...] 01/02/22 1254 Signed By: Mayte Way MD, [facility] 01/02/22 1417 [facility] PAP ACOG PANEL 2: 30 to 65on 12-23-2021 . . Normal [facility] Comment on above: Result Comment: Perf ormed at: WB Performed By: #### RAKESH Feng CMP #### [facility] [address] [place] [address] Dr. Garfield Nelson Age Gdln ACOG Testing 30-65 Normal [facility] Comment on above: Performed By: #### RAKESH Feng CMP #### [facility] [address] [address] [address] Garfield Nelson DIAGNOSIS: Comment Normal [facility] Comment on above: Result Comment: NEGA TIVE FOR INTRAEPITHELIAL LESION OR MALIGNANCY. CELLULAR CHANGES ASSOCIATED WITH ATROPHY ARE PRESENT. Performed at: WB Performed By: #### RAKESH Feng, CMP #### [facility] [address] [address] [address] Garfield Nelson HPV Aptima Negative Normal Negative [facility] Comment on above: Result Comment: This nucleic acid amplification test detects fourteen high-risk HPV types (16,18,31,33,35,39,45,51,52,56,58,59,66,68) without differentiation. Performed at: =G Performed By: #### RAKESH Feng CMP #### [facility] [address] [address] [address] Garfield Nelson Methodology: Comment Normal [facility] Comment on above: Result Comment: This liquid based ThinPrep(R) pap test was screened with the use of an image guided system. Performed at: WB Performed By: #### M RAKESH Dougherty, CMP #### [facility] [address] [address] [address] Garfield Nelson Note: Comment Normal [facility] Comment on above: Result Comment: The Pap [...] By: #### M RAKESH Dougherty, CMP #### [facility] [address] [place] [address] Dr. Garfield Nelson Performed by: Comment Normal [facility] Comment on above: Result Comment: Dinesh Noble Folded Towel Machine Operator (ASCP) Performed at: WB Performed By: #### RAKESH Feng, CMP #### [facility] [address] [address] [address] Garfield Nelson Specimen adequacy: Comment Normal [facility] Comment on above: Result Comment: Sati sfactory for evaluation. Endocervical component may not be distinguished in cases of atrophy. Performed at: WB Performed By: #### RAKESH Feng, CMP #### [facility] [address] [address] [address] Garfield Nelson CBC AUTO DIFFon 12-17-2021 BASO # 0.0 103/ul Normal 0.0-0.1 [facility] Comment on above: Performed By: #### V ITAD #### [facility] [address] [place] [address] Dr. Garfield Nelson Basophils/100 WBC (Bld) 0.6 % Normal 0.2-2.0 [facility] Comment on above: Performed By: #### V ITAD #### [facility] [address] [place] [address] Dr. Garfield Nelson EO # 0.2 103/ul Normal 0.0-0.7 [facility] Comment on above: Performed By: #### V ITAD #### [facility] [address] [place] [address] Dr. Garfield Nelson Eosinophils/100 WBC (Bld) 2.8 % Normal 0.9-7.0 [facility] Comment on above: Performed By: #### V ITAD #### [facility] [address] [place] [address] Dr. Garfield Nelson Erythrocyte distribution width (RBC) [Ratio] 14.0 % Normal 11.0-15.0 [facility] Comment on above: Performed By: #### V ITAD #### [facility] [address] [place] [address] Dr. Garfield Nelson Hematocrit (Bld) [Volume fraction] 42.3 % Normal 36.0-48.0 [facility] Comment on above: Performed By: #### V ITAD #### [facility] [address] [place] [address] Dr. Garfield Nelson Hemoglobin (Bld) [Mass/Vol] 13.3 g/dL Normal 12.0-16.0 [facility] Comment on above: Performed By: #### V ITAD #### [facility] [address] [place] [address] Dr. Garfield Nelson IG # 0.02 10e3/ul Normal 0.00-0.03 [facility] Comment on above: Performed By: #### V ITAD #### [facility] [address] [place] [address] Dr. Garfield Nelson IG % 0.3 % Normal 0.0-0.5 [facility] Comment on above: Performed By: #### V ITAD #### [facility] [address] [place] [address] Dr. Garfield Nelson LYMPH # 1.9 103/ul Normal 1.2-3.8 [facility] Comment on above: Performed By: #### V ITAD #### [facility] [address] [place] [address] Dr. Garfield Nelson Lymphocytes/100 WBC (Bld) 30.0 % Normal 20.5-60.0 [facility] Comment on above: Performed By: #### V ITAD #### [facility] [address] [place] [address] Dr. Garfield Nelson MANUAL DIFF REQ NO Normal [facility] Comment on above: Performed By: #### V ITAD #### [facility] [address] [place] [address] Dr. Garfield Nelson MCH (RBC) [Entitic mass] 28.5 pg Normal 26.7-34.0 [facility] Comment on above: Performed By: #### V ITAD #### [facility] [address] [place] [address] Dr. Garfield Nelson MCHC (RBC) [Mass/Vol] 31.4 g/dL Normal 29.9-35.2 [facility] Comment on above: Performed By: #### V ITAD #### [facility] [address] [place] [address] Dr. Garfield Nelson MCV (RBC) [Entitic vol] 90.8 fL Normal 81.0-99.0 [facility] Comment on above: Performed By: #### V ITAD #### [facility] [address] [place] [address] Dr. Garfield Nelson MONO # 0.9 103/ul Critically high 0.3-0.8 [facility] Comment on above: Performed By: #### V ITAD #### [facility] [address] [place] [address] Dr. Garfield Nelson Monocytes/100 WBC (Bld) 13.4 % Critically high 1.7-12.0 [facility] [facility] Comment on above: Performed By: #### V ITAD #### [facility] [address] [place] [address] Dr. Garfield Nelson NEUT # 3.4 103/ul Normal 1.4-6.5 [facility] Comment on above: Performed By: #### V ITAD #### [facility] [address] [place] [address] Dr. Garfield Nelson Neutrophils/100 WBC (Bld) 52.9 % Normal 43.0-75.0 [facility] Comment on above: Performed By: #### V ITAD #### [facility] [address] [place] [address] Dr. Garfield Nelson Platelet mean volume (Bld) [Entitic vol] 12.2 fL Normal 9.5-13.5 [facility] Comment on above: Performed By: #### V ITAD #### [facility] [address] [place] [address] Dr. Garfield Nelson PLT 258 103/ul Normal 150-450 [facility] Comment on above: Performed By: #### V ITAD #### [facility] [address] [place] [address] Dr. Garfield Nelson RBC 4.66 106/ul Normal 4.20-5.40 [facility] Comment on above: Performed By: #### V ITAD #### [facility] [address] [place] [address] Dr. Garfield Nelson WBC 6.3 103/ul Normal 4.0-11.0 [facility] Comment on above: Performed By: #### V ITAD #### [facility] [address] [place] [address] Dr. Garfield Nelson LIPID PROFILEon 12-17-2021 CHOL-HDL RATIO NORM SEE BELOW Normal [facility] Comment on above: Result Comment: 3.3 - 4.4 LOW RISK 4.4 - 7.1 AVERAGE RISK 7.1 - 11.0 MODERATE RISK >11.0 HIGH RISK Performed By: #### RAKESH Feng, CMP #### [facility] [address] [place] [address] Dr. Garfield Nelson Cholesterol [Mass/Vol] 204 mg/dL Critically high <=200 [facility] Comment on above: Performed By: #### RAKESH Feng, CMP #### [facility] [address] [place] [address] Dr. Garfield Nelson Cholesterol in HDL [Mass/Vol] 75 mg/dL Critically high 40-60 [facility] Comment on above: Performed By: #### RAKESH Feng, CMP #### [facility] [address] [address] [address] Garfield Nelson Cholesterol in LDL [Mass/Vol] 121.0 mg/dL Normal [facility] Comment on above: Performed By: #### RAKESH Feng, CMP #### [facility] [address] [address] [address] Garfield Nelson Cholesterol.total/Ch olesterol in HDL [Mass ratio] 2.7 {ratio} Normal [facility] Comment on above: Performed By: #### RAKESH Feng, CMP #### [facility] [address] [address] [address] Garfield Nelson HDL NORMAL > or = 60 mg/dl - LO W CARDIOVASCULAR RISK <40 mg/dl - HIGH CARDIOVASCULAR RISK Normal [facility] Comment on above: Performed By: #### RAKESH Feng, CMP #### [facility] [address] [address] [address] Garfield Nelson LDL CALC NORMAL SEE BELOW Normal [facility] Comment on above: Result Comment: <100 mg/dl OPTIMAL 100 - 129 mg/dl NEAR OR ABOVE OPTIMAL 130 - 159 mg/dl BORDERLINE HIGH 160 - 189 mg/dl HIGH >190 mg/dl VERY HIGH Performed By: #### RAKESH Feng, CMP #### [facility] [address] [address] [address] Garfield Nelson Triglyceride [Mass/Vol] 40 mg/dL Normal <=150 [facility] Comment on above: Performed By: #### RAKESH Feng, CMP #### [facility] [address] [address] [address] Garfield Nelson VLDL CALC 8.0 mg/dL Normal [facility] Comment on above: Performed By: #### RAKESH Feng, CMP #### [facility] [address] [address] [address] Garfield Nelson PROF 14(COMP METB)on 022 Albumin [Mass/Vol] 3.8 g/dL Normal 3.4-5.0 [facility] Comment on above: Performed By: #### RAKESH Feng, CMP #### [facility] [address] [address] [address] Garfield Nelson Albumin/Globulin [Mass ratio] 0.9 {ratio} Normal [facility] Comment on above: Performed By: #### M G, PHOS, CMP #### [facility] [address] [address] [address] Garfield Nelson ALP [Catalytic activity/Vol] 65 U/L Normal 46-116 [facility] Comment on above: Performed By: #### M G, PHOS, CMP #### [facility] [address] [address] [address] Garfield Nelson ALT [Catalytic activity/Vol] 19 U/L Normal 14-59 [facility] Comment on above: Performed By: #### M G, PHOS, CMP #### [facility] [address] [place] [address] Dr. Garfield Nelson Anion gap [Moles/Vol] 10.6 mmol/L Normal [facility] Comment on above: Performed By: #### M G, PHOS, CMP #### [facility] [address] [address] [address] Garfield Nelson AST [Catalytic activity/Vol] 18 U/L Normal 15-37 [facility] Comment on above: Performed By: #### M G, PHOS, CMP #### [facility] [address] [place] [address] Dr. Garfield Nelson Bilirubin [Mass/Vol] 0.5 mg/dL Normal 0.2-1.0 [facility] Comment on above: Performed By: #### M G, PHOS, CMP #### [facility] [address] [address] [address] Garfield Nelson Calcium [Mass/Vol] 8.9 mg/dL Normal 8.5-10.1 [facility] Comment on above: Performed By: #### M G, PHOS, CMP #### [facility] [address] [address] [address] Garfield Nelson Chloride [Moles/Vol] 106 mmol/L Normal 98-107 [facility] Comment on above: Performed By: #### M G, PHOS, CMP #### [facility] [address] [address] [address] Garfield Nelson CO2 [Moles/Vol] 28.6 mmol/L Normal 21.0-32.0 [facility] [place] Comment on above: Performed By: #### M G, PHOS, CMP #### [facility] [address] [address] [address] Garfield Nelson Creatinine [Mass/Vol] 0.88 mg/dL Normal 0.55-1.02 [facility] Comment on above: Performed By: #### M G, PHOS, CMP #### [facility] [address] [address] [address] Garfield Nelson EGFR-AF GREENLANDIC >60 Normal >=60 [facility] [place] Comment on above: Performed By: #### M G, PHOS, CMP #### [facility] [address] [address] [address] Garfield Nelson EGFR-NON AF GREENLANDIC >60 Normal >=60 [facility] Comment on above: Performed By: #### M G, PHOS, CMP #### [facility] [address] [address] [address] Garfield Nelson Globulin (S) [Mass/Vol] 4.1 g/dL Normal [facility] Comment on above: Performed By: #### M G, PHOS, CMP #### [facility] [address] [address] [address] Garfield Nelson Glucose [Mass/Vol] 93 mg/dL Normal 74-106 [facility] Comment on above: Performed By: #### M G, PHOS, CMP #### [facility] [address] [address] [address] Garfield Nelson Potassium [Moles/Vol] 4.2 mmol/L Normal 3.5-5.1 [facility] Comment on above: Performed By: #### M G, PHOS, CMP #### [facility] [address] [address] [address] Garfield Nelson Protein [Mass/Vol] 7.9 g/dL Normal 6.4-8.2 [facility] Comment on above: Performed By: #### RAKESH Feng CMP #### [facility] [address] [place] [address] Dr. Garfield Nelson Sodium [Moles/Vol] 141 mmol/L Normal 136-145 [facility] Comment on above: Performed By: #### RAKESH Feng CMP #### [facility] [address] [place] [address] Dr. Garfield Nelson Urea nitrogen [Mass/Vol] 22.0 mg/dL Critically high 7.0-18.0 [facility] Comment on above: Performed By: #### RAKESH Feng CMP #### [facility] [address] [place] [address] Dr. Garfield Nelson Urea nitrogen/Creatinine [Mass ratio] 25.0 mg/mg Normal [facility] Comment on above: Performed By: #### RAKESH Feng CMP #### [facility] [address] [place] [address] Dr. Garfield Nelson TSHon 12-17-2021 TSH 2.939 uIU/mL Normal 0.358-3.740 [facility] Comment on above: Performed By: #### RAKESH Feng CMP #### [facility] [address] [place] [address] Dr. Garfield Nelson VITAMIN D 25 OHon 12-17-2021 VIT D 25-OH 34.5 ng/mL Normal [facility] Comment on above: Performed By: #### V ITAD #### [facility] [address] [place] [address] Dr. Garfield Nelson VIT D RANGES SEE BELOW Normal [facility] Comment on above: Result Comment: <20 ng/mL Vit D deficient 20 - <30 ng/mL Vit D insufficient 30 - 100 ng/mL Vit D sufficient >100 ng/mL Potential Toxicity Performed By: #### V ITAD #### [facility] [address] [place] [address] Dr. Garfield Nelson C3 and C4 COMPLEMENTon 11-14 Complement C3, Serum 109 mg/dL Normal 82-167 [facility] Comment on above: Performed By: #### C SUITE #### [facility] [address] [place], [place] [address] Dr. Garfield Nelson Complement C4, Serum 19 mg/dL Normal 12-38 [facility] Comment on above: Performed By: #### C SUITE #### [facility] [address] [place], [place] [address] Dr. Garfield Nelson MG MAMM SCREEN 3D PATRICA CADon 11-14-2021 MG MAMM SCREEN 3D PATRICA CAD Patient: SIERRA ALBERTS Exam Date: 11/14/2021 : 1965 Gender:F Ordering : DR JUDITH MARTINEZ . Admission #: [id number] Family : Order #: [id number] CLICK HERE TO VIEW EXAM RADIOLOGY REPORT [...] breast cancer at age 60. LOCATION: [facility] BREAST COMPOSITION: Extremely dense, which [...] MD on 11/14/2021 at 12:25 Normal [facility] COMPLEMENT TOTAL (CH50)on Complement, Total (CH50) >60 Normal >41 [facility] Comment on above: Result Comment: [...] values. Performed By: #### C H50T #### [facility] [address] [place] [address] Dr. Garfield Nelson CBC AUTO DIFFon 11-12-2021 BASO # 0.1 103/ul Normal 0.0-0.1 [facility] Comment on above: Performed By: #### C SUITE #### [facility] [address] [place] [address] Dr. Garfield Nelson Basophils/100 WBC (Bld) 0.7 % Normal 0.2-2.0 [facility] Comment on above: Performed By: #### C SUITE #### [facility] [address] [place] [address] Dr. Garfield Nelson EO # 0.2 103/ul Normal 0.0-0.7 [facility] Comment on above: Performed By: #### C SUITE #### [facility] [address] [place] [address] Dr. Garfield Nelson Eosinophils/100 WBC (Bld) 2.6 % Normal 0.9-7.0 [facility] Comment on above: Performed By: #### C SUITE #### [facility] [address] [place] [address] Dr. Garfield Nelson Erythrocyte distribution width (RBC) [Ratio] 14.1 % Normal 11.0-15.0 [facility] Comment on above: Performed By: #### C SUITE #### [facility] [address] [place] [address] Dr. Garfield Nelson Hematocrit (Bld) [Volume fraction] 42.2 % Normal 36.0-48.0 [facility] Comment on above: Performed By: #### C SUITE #### [facility] [address] [place] [address] Dr. Garfield Nelson Hemoglobin (Bld) [Mass/Vol] 13.2 g/dL Normal 12.0-16.0 [facility] Comment on above: Performed By: #### C SUITE #### [facility] [address] [place] [address] Dr. Garfield Nelson IG # 0.02 10e3/ul Normal 0.00-0.03 [facility] Comment on above: Performed By: #### C SUITE #### [facility] [address] [place] [address] Dr. Garfield Nelson IG % 0.3 % Normal 0.0-0.5 [facility] Comment on above: Performed By: #### C SUITE #### [facility] [address] [place] [address] Dr. Garfield Nelson LYMPH # 2.1 103/ul Normal 1.2-3.8 [facility] Comment on above: Performed By: #### C SUITE #### [facility] [address] [place] [address] Dr. Garfield Nelson Lymphocytes/100 WBC (Bld) 28.2 % Normal 20.5-60.0 [facility] Comment on above: Performed By: #### C SUITE #### [facility] [address] [place] [address] Dr. Garfield Nelson MANUAL DIFF REQ NO Normal [facility] Comment on above: Performed By: #### C SUITE #### [facility] [address] [place] [address] Dr. Garfield Nelson MCH (RBC) [Entitic mass] 28.3 pg Normal 26.7-34.0 [facility] Comment on above: Performed By: #### C SUITE #### [facility] [address] [place] [address] Dr. Garfield Nelson MCHC (RBC) [Mass/Vol] 31.3 g/dL Normal 29.9-35.2 [facility] Comment on above: Performed By: #### C SUITE #### [facility] [address] [place] [address] Dr. Garfield Nelson MCV (RBC) [Entitic vol] 90.6 fL Normal 81.0-99.0 [facility] Comment on above: Performed By: #### C SUITE #### [facility] [address] [address] [address] Garfield Nelson MONO # 1.0 103/ul Critically high 0.3-0.8 [facility] Comment on above: Performed By: #### C SUITE #### [facility] [address] [address] [address] Garfield Nelson Monocytes/100 WBC (Bld) 13.9 % Critically high 1.7-12.0 [facility] Comment on above: Performed By: #### C SUITE #### [facility] [address] [place] [address] Dr. Garfield Nelson NEUT # 4.0 103/ul Normal 1.4-6.5 [facility] Comment on above: Performed By: #### C SUITE #### [facility] [address] [place] [address] Dr. Garfield Nelson Neutrophils/100 WBC (Bld) 54.3 % Normal 43.0-75.0 [facility] Comment on above: Performed By: #### C SUITE #### [facility] [address] [place] [address] Dr. Garfield Nelson Platelet mean volume (Bld) [Entitic vol] 12.3 fL Normal 9.5-13.5 [facility] Comment on above: Performed By: #### C SUITE #### [facility] [address] [place] [address] Dr. Garfield Nelson PLT 256 103/ul Normal 150-450 [facility] Comment on above: Performed By: #### C SUITE #### [facility] [address] [place] [address] Dr. Garfield Nelson RBC 4.66 106/ul Normal 4.20-5.40 [facility] Comment on above: Performed By: #### C SUITE #### [facility] [address] [place] [address] Dr. Garfield Nelson WBC 7.4 103/ul Normal 4.0-11.0 [facility] Comment on above: Performed By: #### C SUITE #### [facility] [address] [place] [address] Dr. Garfield Nelsno MAGNESIUMon 11-12-2021 Magnesium [Mass/Vol] 2.0 mg/dL Normal 1.8-2.4 [facility] Comment on above: Performed By: #### DAVID FengS, CMP #### [facility] [address] [place] [address] Dr. Garfield Nelson PHOSPHORUSon 11-12-2021 Phosphate [Mass/Vol] 3.4 mg/dL Normal 2.6-4.7 [facility] Comment on above: Performed By: #### Sekou Dougherty PHOS, CMP #### [facility] [address] [place] [address] Dr. Garfield Nelson PROF 14(COMP METB)on 022 Albumin [Mass/Vol] 3.9 g/dL Normal 3.4-5.0 [facility] Comment on above: Performed By: #### RAKESH Feng, CMP #### [facility] [address] [place] [address] Dr. Garfield Nelson Albumin/Globulin [Mass ratio] 1.0 {ratio} Normal [facility] Comment on above: Performed By: #### DAVID FengS, CMP #### [facility] [address] [place] [address] Dr. Garfield Nelson ALP [Catalytic activity/Vol] 68 U/L Normal 46-116 [facility] Comment on above: Performed By: #### DAVID FengS, CMP #### [facility] [address] [place] [address] Dr. Garfield Nelson ALT [Catalytic activity/Vol] 16 U/L Normal 14-59 [facility] Comment on above: Performed By: #### Sekou Dougherty PHOS, CMP #### [facility] [address] [place] [address] Dr. Garfield Nelson Anion gap [Moles/Vol] 9.7 mmol/L Normal [facility] Comment on above: Performed By: #### Sekou Dougherty PHOS, CMP #### [facility] [address] [place] [address] Dr. Garfield Nelson AST [Catalytic activity/Vol] 17 U/L Normal 15-37 [facility] Comment on above: Performed By: #### RAKESH Feng, CMP #### [facility] [address] [address] [address] Garfield Nelson Bilirubin [Mass/Vol] 0.4 mg/dL Normal 0.2-1.0 [facility] Comment on above: Performed By: #### RAKESH Feng, CMP #### [facility] [address] [address] [address] Garfield Nelson Calcium [Mass/Vol] 9.0 mg/dL Normal 8.5-10.1 [facility] Comment on above: Performed By: #### RAKESH Feng, CMP #### [facility] [address] [place] [address] Dr. Garfield Nelson Chloride [Moles/Vol] 103 mmol/L Normal 98-107 [facility] Comment on above: Performed By: #### RAKESH Feng, CMP #### [facility] [address] [place] [address] Dr. Garfield Nelson CO2 [Moles/Vol] 30.2 mmol/L Normal 21.0-32.0 [facility] Comment on above: Performed By: #### RAKESH Feng, CMP #### [facility] [address] [place] [address] Dr. Garfield Nelson Creatinine [Mass/Vol] 0.92 mg/dL Normal 0.55-1.02 [facility] Comment on above: Performed By: #### RAKESH Feng, CMP #### [facility] [address] [place] [address] Dr. Garfield Nelson EGFR-AF GREENLANDIC >60 Normal >=60 [facility] Comment on above: Performed By: #### RAKESH Feng, CMP #### [facility] [address] [place] [address] Dr. Garfield Nelson EGFR-NON AF GREENLANDIC >60 Normal >=60 [facility] Comment on above: Performed By: #### RAKESH Feng, CMP #### [facility] [address] [address] [address] Garfield Nelson Globulin (S) [Mass/Vol] 3.8 g/dL Normal [facility] Comment on above: Performed By: #### M RAKESH Dougherty, CMP #### [facility] [address] [address] [address] Garfield Nelson Glucose [Mass/Vol] 101 mg/dL Normal 74-106 [facility] Comment on above: Performed By: #### RAKESH Feng, CMP #### [facility] [address] [address] [address] Garfield Nelson Potassium [Moles/Vol] 3.9 mmol/L Normal 3.5-5.1 [facility] Comment on above: Performed By: #### M RAKESH Dougherty, CMP #### [facility] [address] [address] [address] Garfield Nelson Protein [Mass/Vol] 7.7 g/dL Normal 6.4-8.2 [facility] Comment on above: Performed By: #### RAKESH Feng, CMP #### [facility] [address] [address] [address] Garfield Nelson Sodium [Moles/Vol] 139 mmol/L Normal 136-145 [facility] Comment on above: Performed By: #### RAKESH Feng, CMP #### [facility] [address] [place] [address] Dr. Garfield Nelson Urea nitrogen [Mass/Vol] 16.0 mg/dL Normal 7.0-18.0 [facility] Comment on above: Performed By: #### RAKESH Feng, CMP #### [facility] [address] [address] [address] Garfield Nelson Urea nitrogen/Creatinine [Mass ratio] 17.4 mg/mg Normal [facility] Comment on above: Performed By: #### DAVID FengS, CMP #### [facility] [address] [address] [address] Garfield Nelson SED RATE [facility] 2021 SED RATE 58 mm/hr Critically high <=30 [facility] Comment on above: Performed By: #### C SUITE #### [facility] [address] [place] [address] Dr. Garfield Nelson UA RANDOM W/MICROSCOPICon BACTERIA NONE SEEN Normal NONE SEEN [facility] Comment on above: Performed By: #### V ITAD #### [facility] [address] [place] [address] Dr. Garfield Nelson Bilirubin Ql (U) Negative Normal NEGATIVE [facility] Comment on above: Performed By: #### V ITAD #### [facility] [address] [place] [address] Dr. Garfield Nelson CAST NONE SEEN Normal NONE SEEN [facility] Comment on above: Performed By: #### V ITAD #### [facility] [address] [place] [address] Dr. Garfield Nelson Clarity (U) CLEAR Normal CLEAR [facility] Comment on above: Performed By: #### V ITAD #### [facility] [address] [place] [address] Dr. Garfield Nelson Color (U) LT. YELLOW Normal YELLOW [facility] [facility] Comment on above: Performed By: #### V ITAD #### [facility] [address] [place] [address] Dr. Garfield Nelson Crystals LM Nom (Urine sed) NONE SEEN Normal NONE SEEN [facility] Comment on above: Performed By: #### V ITAD #### [facility] [address] [place] [address] Dr. Garfield Nelson Epithelial cells LM Ql (Urine sed) NONE SEEN Normal NONE SEEN /RARE [facility] Comment on above: Performed By: #### V ITAD #### [facility] [address] [place] [address] Dr. Garfield Nelson Glucose Ql (U) Negative Normal NEGATIVE [facility] Comment on above: Performed By: #### V ITAD #### [facility] [address] [place] [address] Dr. Garfield Nelson Hemoglobin Ql (U) Negative Normal NEGATIVE The [facility] Comment on above: Performed By: #### V ITAD #### [facility] [address] [place] [address] Dr. Garfield Nelson Ketones Ql (U) Negative Normal NEGATIVE [facility] Comment on above: Performed By: #### V ITAD #### [facility] [address] [place] [address] Dr. Garfield Nelson LEUKOCYTES Negative Normal NEGATIVE [facility] Comment on above: Performed By: #### V ITAD #### [facility] [address] [place] [address] Dr. aGrfield Nelson MUCOUS NONE SEEN Normal NONE SEEN [facility] Comment on above: Performed By: #### V ITAD #### [facility] [address] [place] [address] Dr. Garfield Nelson Nitrite Ql (U) Negative Normal NEGATIVE [facility] Comment on above: Performed By: #### V ITAD #### [facility] [address] [place] [address] Dr. Garfield Nelson pH (U) 6.0 [pH] Normal 5-9 [facility] Comment on above: Performed By: #### V ITAD #### [facility] [address] [place] [address] Dr. Garfield Nelson RBC 0-2 Normal 0-2 [facility] Comment on above: Performed By: #### V ITAD #### [facility] [address] [place] [address] Dr. Garfield Nelson SPEC GRAVITY 1.020 Normal 1.005-<=1.025 [facility] Comment on above: Performed By: #### V ITAD #### [facility] [address] [place] [address] Dr. Garfield Nelson UA PROTEIN Negative Normal NEGATIVE/ TRACE [facility] Comment on above: Performed By: #### V ITAD #### [facility] [address] [place] [address] Dr. Garfield Nelson Urobilinogen Qn (U) 0.2 {Marquise'U}/dL Normal 0.2 - 1. 0 [facility] Comment on above: Performed By: #### V ITAD #### [facility] [address] [address] [address] Garfield Nelson WBC NONE SEEN Normal NONE SEEN [facility] Comment on above: Performed By: #### V ITAD #### [facility] [address] [place] [address] Dr. Garfield Nelson C3 and C4 COMPLEMENTon 08-08 Complement C3, Serum 131 mg/dL Normal 82-167 [facility] Comment on above: Performed By: #### C SUITE #### [facility] [address] [place] [address] Dr. Garfield Nelson Complement C4, Serum 18 mg/dL Normal 12-38 [facility] Comment on above: Performed By: #### C SUITE #### [facility] [address] [place] [address] Dr. Garfield Nelson COMPLEMENT TOTAL (CH50)on Complement, Total (CH50) >60 Normal >41 [facility] Comment on above: Result Comment: [...] of range values. Performed By: #### M G, PHOS, CMP #### [facility] [address] [place] [address] Dr. Garfield Nelson CBC AUTO DIFFon 08-07-2021 BASO # 0.1 103/ul Normal 0.0-0.1 [facility] Comment on above: Performed By: #### V ITAD #### [facility] [address] [place] [address] Dr. Garfield Nelson Basophils/100 WBC (Bld) 0.6 % Normal 0.2-2.0 [facility] Comment on above: Performed By: #### V ITAD #### [facility] [address] [place] [address] Dr. Garfield Nelson EO # 0.1 103/ul Normal 0.0-0.7 [facility] Comment on above: Performed By: #### V ITAD #### [facility] [address] [place] [address] Dr. Garfield Nelson Eosinophils/100 WBC (Bld) 1.1 % Normal 0.9-7.0 [facility] Comment on above: Performed By: #### V ITAD #### [facility] [address] [place] [address] Dr. Garfield Nelson Erythrocyte distribution width (RBC) [Ratio] 14.5 % Normal 11.0-15.0 [facility] Comment on above: Performed By: #### V ITAD #### [facility] [address] [place] [address] Dr. Garfield Nelson Hematocrit (Bld) [Volume fraction] 40.6 % Normal 36.0-48.0 [facility] Comment on above: Performed By: #### V ITAD #### [facility] [address] [place] [address] Dr. Garfield Nelson Hemoglobin (Bld) [Mass/Vol] 12.8 g/dL Normal 12.0-16.0 [facility] Comment on above: Performed By: #### V ITAD #### [facility] [address] [place] [address] Dr. Garfield Nelson IG # 0.02 10e3/ul Normal 0.00-0.03 [facility] Comment on above: Performed By: #### V ITAD #### [facility] [address] [place] [address] Dr. Garfield Nelson IG % 0.2 % Normal 0.0-0.5 [facility] Comment on above: Performed By: #### V ITAD #### [facility] [address] [place] [address] Dr. Garfield Nelson LYMPH # 1.7 103/ul Normal 1.2-3.8 [facility] Comment on above: Performed By: #### V ITAD #### [facility] [address] [place] [address] Dr. Garfield Nelson Lymphocytes/100 WBC (Bld) 20.0 % Critically low 20.5-60.0 [facility] Comment on above: Performed By: #### V ITAD #### [facility] [address] [place] [address] Dr. Garfield Nelson MANUAL DIFF REQ NO Normal [facility] Comment on above: Performed By: #### V ITAD #### [facility] [address] [place] [address] Dr. Garfield Nelson MCH (RBC) [Entitic mass] 28.4 pg Normal 26.7-34.0 [facility] Comment on above: Performed By: #### V ITAD #### [facility] [address] [place] [address] Dr. Garfield Nelson MCHC (RBC) [Mass/Vol] 31.5 g/dL Normal 29.9-35.2 [facility] Comment on above: Performed By: #### V ITAD #### [facility] [address] [place] [address] Dr. Garfield Nelson MCV (RBC) [Entitic vol] 90.0 fL Normal 81.0-99.0 [facility] Comment on above: Performed By: #### V ITAD #### [facility] [address] [place] [address] Dr. Garfield Nelson MONO # 0.9 103/ul Critically high 0.3-0.8 [facility] Comment on above: Performed By: #### V ITAD #### [facility] [address] [place] [address] Dr. Garfield Nelson Monocytes/100 WBC (Bld) 10.9 % Normal 1.7-12.0 [facility] Comment on above: Performed By: #### V ITAD #### [facility] [address] [place] [address] Dr. Garfield Nelson NEUT # 5.7 103/ul Normal 1.4-6.5 [facility] Comment on above: Performed By: #### V ITAD #### [facility] [address] [place] [address] Dr. Garfield Nelson Neutrophils/100 WBC (Bld) 67.2 % Normal 43.0-75.0 [facility] Comment on above: Performed By: #### V ITAD #### [facility] [address] [place] [address] Dr. Garfield Nelson Platelet mean volume (Bld) [Entitic vol] 12.1 fL Normal 9.5-13.5 [facility] Comment on above: Performed By: #### V ITAD #### [facility] [address] [place] [address] Dr. Garfield Nelson PLT 249 103/ul Normal 150-450 [facility] Comment on above: Performed By: #### V ITAD #### [facility] [address] [place] [address] Dr. Garfield Nelson RBC 4.51 106/ul Normal 4.20-5.40 [facility] Comment on above: Performed By: #### V ITAD #### [facility] [address] [place] [address] Dr. Garfield Nelson WBC 8.5 103/ul Normal 4.0-11.0 [facility] Comment on above: Performed By: #### V ITAD #### [facility] [address] [place] [address] Dr. Garfield Nelson MAGNESIUMon 08-07-2021 Magnesium [Mass/Vol] 2.0 mg/dL Normal 1.8-2.4 [facility] Comment on above: Performed By: #### C SUITE #### [facility] [address] [place] [address] Dr. Garfield Nelson PHOSPHORUSon 08-07-2021 Phosphate [Mass/Vol] 3.6 mg/dL Normal 2.6-4.7 [facility] Comment on above: Performed By: #### C SUITE #### [facility] [address] [place] [address] Dr. Garfield Nelson PROF 14(COMP METB)on 022 Albumin [Mass/Vol] 3.8 g/dL Normal 3.4-5.0 [facility] Comment on above: Performed By: #### C SUITE #### [facility] [address] [place] [address] Dr. Garfield Nelson Albumin/Globulin [Mass ratio] 0.9 {ratio} Normal [facility] Comment on above: Performed By: #### C SUITE #### [facility] [address] [place] [address] Dr. Garfield Nelson ALP [Catalytic activity/Vol] 73 U/L Normal 46-116 [facility] Comment on above: Performed By: #### C SUITE #### [facility] [address] [place] [address] Dr. Garfield Nelson ALT [Catalytic activity/Vol] 24 U/L Normal 14-59 [facility] Comment on above: Performed By: #### C SUITE #### [facility] [address] [place] [address] Dr. Garfield Nelson Anion gap [Moles/Vol] 12.0 mmol/L Normal [facility] Comment on above: Performed By: #### C SUITE #### [facility] [address] [place] [address] Dr. Garfield Nelson AST [Catalytic activity/Vol] 22 U/L Normal 15-37 [facility] Comment on above: Performed By: #### C SUITE #### [facility] [address] [place] [address] Dr. Garfield Nelson Bilirubin [Mass/Vol] 0.4 mg/dL Normal 0.2-1.0 [facility] Comment on above: Performed By: #### C SUITE #### [facility] [address] [place] [address] Dr. Garfield Nelson Calcium [Mass/Vol] 8.9 mg/dL Normal 8.5-10.1 [facility] Comment on above: Performed By: #### C SUITE #### [facility] [address] [place] [address] Dr. Garfield Nelson Chloride [Moles/Vol] 102 mmol/L Normal 98-107 [facility] Comment on above: Performed By: #### C SUITE #### [facility] [address] [place] [address] Dr. Garfield Nelson CO2 [Moles/Vol] 27.2 mmol/L Normal 21.0-32.0 [facility] Comment on above: Performed By: #### C SUITE #### [facility] [address] [place] [address] Dr. Garfield Nelson Creatinine [Mass/Vol] 0.86 mg/dL Normal 0.55-1.02 [facility] Comment on above: Performed By: #### C SUITE #### [facility] [address] [place] [address] Dr. Garfield Nelson EGFR-AF GREENLANDIC >60 Normal >=60 [facility] Comment on above: Performed By: #### C SUITE #### [facility] [address] [place] [address] Dr. Garfield Nelson EGFR-NON AF GREENLANDIC >60 Normal >=60 [facility] Comment on above: Performed By: #### C SUITE #### [facility] [address] [place] [address] Dr. Garfield Nelson Globulin (S) [Mass/Vol] 4.4 g/dL Normal [facility] Comment on above: Performed By: #### C SUITE #### [facility] [address] [place] [address] Dr. Garfield Nelson Glucose [Mass/Vol] 108 mg/dL Critically high 74-106 [facility] Comment on above: Performed By: #### C SUITE #### [facility] [address] [place] [address] Dr. Garfield Nelson Potassium [Moles/Vol] 4.2 mmol/L Normal 3.5-5.1 [facility] Comment on above: Performed By: #### C SUITE #### [facility] [address] [place] [address] Dr. Garfield Nelson Protein [Mass/Vol] 8.2 g/dL Normal 6.4-8.2 [facility] Comment on above: Performed By: #### C SUITE #### [facility] [address] [place] [address] Dr. Garfield Nelson Sodium [Moles/Vol] 137 mmol/L Normal 136-145 [facility] Comment on above: Performed By: #### C SUITE #### [facility] [address] [place] [address] Dr. Garfield Nelson Urea nitrogen [Mass/Vol] 15.0 mg/dL Normal 7.0-18.0 [facility] Comment on above: Performed By: #### C SUITE #### [facility] [address] [place] [address] Dr. Garfield Nelson Urea nitrogen/Creatinine [Mass ratio] 17.4 mg/mg Normal [facility] Comment on above: Performed By: #### C SUITE #### [facility] [address] [place] [address] Dr. Garfield Nelson [facility] 11 mm/hr Normal <=30 [facility] Comment on above: Performed By: #### C SUITE #### [facility] [address] [place] [address] Dr. Garfield Nelson UA RANDOM W/MICROSCOPICon BACTERIA NONE SEEN Normal NONE SEEN [facility] Comment on above: Performed By: #### U AMIC #### [facility] [address] [place] [address] Dr. Garfield Nelson Bilirubin Ql (U) Negative Normal NEGATIVE [facility] Comment on above: Performed By: #### U AMIC #### [facility] [address] [place] [address] Dr. Garfield Nelson CAST NONE SEEN Normal NONE SEEN [facility] Comment on above: Performed By: #### U AMIC #### [facility] [address] [place] [address] Dr. Garfield Nelson Clarity (U) CLEAR Normal CLEAR [facility] Comment on above: Performed By: #### U AMIC #### [facility] [address] [place] [address] Dr. Garfield Nelson Color (U) LT. YELLOW Normal YELLOW [facility] Comment on above: Performed By: #### U AMIC #### [facility] [address] [place] [address] Dr. Garfield Nelson Crystals LM Nom (Urine sed) NONE SEEN Normal NONE SEEN [facility] Comment on above: Performed By: #### U AMIC #### [facility] [address] [address] [address] Garfield Nelson Epithelial cells LM Ql (Urine sed) FEW Abnormal NONE SEEN /RARE [facility] Comment on above: Performed By: #### U AMIC #### [facility] [address] [address] [address] Garfield Nelson Glucose Ql (U) Negative Normal NEGATIVE [facility] Comment on above: Performed By: #### U AMIC #### [facility] [address] [address] [address] Garfield Nelson Hemoglobin Ql (U) Negative Normal NEGATIVE [facility] Comment on above: Performed By: #### U AMIC #### [facility] [address] [address] [address] Garfield Nelson Ketones Ql (U) Negative Normal NEGATIVE [facility] Comment on above: Performed By: #### U AMIC #### [facility] [address] [address] [address] Garfield Nelson LEUKOCYTES Negative Normal NEGATIVE [facility] Comment on above: Performed By: #### U AMIC #### [facility] [address] [address] [address] Garfield Nelson MUCOUS NONE SEEN Normal NONE SEEN [facility] Comment on above: Performed By: #### U AMIC #### [facility] [address] [address] [address] Garfield Nelson Nitrite Ql (U) Negative Normal NEGATIVE [facility] Comment on above: Performed By: #### U AMIC #### [facility] [address] [address] [address] Garfield Nelson pH (U) 6.0 [pH] Normal 5-9 [facility] Comment on above: Performed By: #### U AMIC #### [facility] [address] [address] [address] Garfield Nelson RBC NONE SEEN Abnormal 0-2 [facility] Comment on above: Performed By: #### U AMIC #### [facility] [address] [address] [address] Garfield Nelson SPEC GRAVITY 1.010 Normal 1.005-<=1.025 [facility] Comment on above: Performed By: #### U AMIC #### [facility] [address] [address] [address] Garfield Nelson UA PROTEIN Negative Normal NEGATIVE/ TRACE [facility] Comment on above: Performed By: #### U AMIC #### [facility] [address] [address] [address] Garfield Nelson Urobilinogen Qn (U) 0.2 {Marquise'U}/dL Normal 0.2 - 1. 0 [facility] Comment on above: Performed By: #### U AMIC #### [facility] [address] [address] [address] Garfield Nelson WBC NONE SEEN Normal NONE SEEN [facility] Comment on above: Performed By: #### U AMIC #### [facility] [address] [address] [address] Garfield Nelson Vital Signs Date Time Vital Sign Value Performing Clinician Facility 01-04-2024 11:13-0500 Body height 157.[address] Work Phone: [facility] 01-04-2024 11:13-0500 Body mass index (BMI) [Ratio] 19.02 kg/m2 [address] Work Phone: [facility] 01-04-2024 11:13-0500 Body weight 47.[address] Work Phone: [facility] 01-04-2024 11:13-0500 Diastolic blood pressure 78 mm[Hg] [address] Work Phone: [facility] 01-04-2024 11:13-0500 Systolic blood pressure 110 mm[Hg] [address] Work Phone: [facility] 12-18-2022 11:00-0400 Body height 157.48 cm Rich Ball Other [facility] Other 12-18-2022 11:00-0400 Body mass index (BMI) [Ratio] 19.02 kg/m2 Rich Ball Other [facility] Other 12-18-2022 11:00-0400 Body weight 47.17 kg Rich Ball Other [facility] Other 12-18-2022 11:00-0400 Diastolic blood pressure 78 mm[Hg] Rich Ball Other [facility] Other 12-18-2022 11:00-0400 Respiratory rate 12 /min Rich Ball Other [facility] Other 12-18-2022 11:00-0400 Systolic blood pressure 117 mm[Hg] Rich Ball Other [facility] Other Encounters Encounter Date Encounter Type Care Provider Facility Start: 01-04-2024 End: 01-04-[address] Work Phone: [facility] Start: 01-04-2024 End: 01-13-[address] Work Phone: [facility] Start: 01-04-2024 End: 01-13-2024 Clinisync Result Encounter [address] Work Phone: [facility] External Department Unsolicited Start: 01-04-2024 End: 01-04-2024 Patient encounter procedure [address] Work Phone: [facility] Healthcare Start: 01-04-2024 End: 01-04-2024 Periodic preventive med est patient 40-[address]yrs [address] Work Phone: [facility] Comment on above: Postmenopausal state ; Well woman exam with routine gynecological exam Start: 01-04-2024 End: 01-04-2024 ambulatory STEPHANIE KEITH Not Available Start: 12-18-2022 End: 12-18-2022 ambulatory Rich Ball Other [facility] Other Start: 12-18-2022 Encounter for genera l adult medical examination without abnormal findings Rich Garcia [facility] Start: 12-18-2022 Periodic preventive med est patient 40-64yrs Rich Garcia [facility] Start: 12-05-2022 End: 12-05-2022 ambulatory Rich Garcia Other [facility] Other Start: 12-05-2022 Nursing evaluation o f patient and report Rich Garcia [facility] Start: 05-12-2022 End: 05-13-[address] NIKI BOWMAN Facility:[facility] Start: 04-11-2022 End: 04-11-2022 ambulatory Rich Garcia Other [facility] Other Start: 04-11-2022 Office outpatient vi sit 15 minutes Rich Garcia [facility] Start: 03-11-2022 End: 03-11-2022 ambulatory Rich Garcia Other [facility] Other Start: 03-11-2022 Office outpatient vi sit 15 minutes Rich Jose [facility] Start: 02-11-2022 End: 02-12-[address] DOCTOR SMITH Facility:[facility] Start: 01-02-2022 End: 01-02-2022 ambulatory Patricia Ornelas Facility:[facility] Start: 01-02-2022 End: 01-02-2022 ambulatory DO Rich Jose Work Phone: [facility] Work Phone: Start: 01-02-2022 End: 01-02-2022 Patient encounter procedure DO Rich Jose Work Phone: [facility] Start: 01-02-2022 ambulatory Facility:[id number] Start: 12-19-2021 Encounter for genera l adult medical examination without abnormal findings DR RICH GARCIA [facility] Start: 12-17-2021 End: 12-18-[address] RICH GARCIA Facility:[facility] Start: 12-17-2021 End: 12-18-2021 Encounter for general adult medical examination without abnormal findings DR RICH GARCIA Facility:H1 Start: 12-16-2021 End: 12-16-[address] JUDITH MARTINEZ . Facility:[facility]1 Start: 12-16-2021 Gynecological examin ation normal Rich Garcia Other [facility] Other Start: 12-13-2021 Adult health examination Douglas Garcia Other [facility] Other Start: 11-14-2021 End: 11-15-[address] JUDITH MARTINEZ . Facility:[facility]1 Start: 11-12-2021 End: 11-13-[address] DOCTOR SMITH Facility:[facility]1 Start: 08-07-2021 End: 08-08-[address] DOCTOR SMITH Facility:[facility]1 Procedures Date Procedure Procedure Detail Performing Clinician Start: 01-04-2024 IGP,APTIMA HPV,AGE GDLN [address] Work Phone: Start: 01-04-2024 Microscopic observat ion [Identifier] in Cervix by Cyto stain [address] Work Phone: Start: 12-18-[address] Work Phone: Start: 12-15-2017 General examination of patient Rich Garcia Other Depression screening Nam Garcia Other Screening for malign ant neoplasm of breast Rich Garcia Other End: 12-12-2021 Screening for malignant neoplasm of breast Rich Garcia Other Screening for malign ant neoplasm of breast Rich Garcia Other Screening for malign ant neoplasm of colon Rich Garcia Other End: 12-04-2020 Screening for osteoporosis Rich Garcia Other Plan of Treatment Date Care Activity Detail Author Start: 01-03-2029 Screening for malignant neoplasm of cervix [facility] Start: 01-10-2025 End: 01-10-2025 Patient encounter procedure 01/10/2025 11:00 AM EST Office Visit [facility] [address] [address] Stephanie Keith PA [address] [place], [place] [id number] [facility] Start: 12-17-2024 Screening for malignant neoplasm of breast Mammogram [facility] Start: 01-04-2024 End: 01-04-2024 Patient encounter procedure 01/04/2024 11:00 AM EST Office Visit [facility] [address] [place] [address] Stephanie Keith PA [address] [place] [address] Arrived [facility] Comment on above: Arrived Start: 11-01-2023 Influenza vaccination Influenza Vacc ine (#1) [facility] Start: 12-01-1995 Screening for malignant neoplasm of cervix [facility] Start: 1986 Screening for malignant neoplasm of cervix Pap Smear [facility] Start: 1965 Screening for malignant neoplasm of colon [facility] THIN PREP TIS PAP AN D HR HPV DNA THIN PREP TIS PAP AND HR HPV DNA Pathology and Cytology Routine Well woman exam with routine gynecological exam Ordered: 01/04/2024 [facility] Work Phone: Comment on above: Ordered: 01/04/2024 Immunizations Immunization Date Immunization Notes Care Provider Fa naya 12-28-2023 influenza virus vaccine, unspecified formulation [address] Work Phone: [facility] 12-05-2022 influenza, injectabl e, quadrivalent, preservative free Rich Garcia Other [facility] Other 12-13-2021 influenza virus vaccine, split virus (incl. purified surface antigen) Rich Garcia Other [facility] Other 12-12-2020 COVID-19 mRNA, Comirnaty (Wooshii) DO Rich Garcia Work Phone: [facility] 12-05-2020 influenza virus vaccine, split virus (incl. purified surface antigen) Rich Garcia Other [facility] Other 05-04-2020 COVID-19 mRNA, Comirnaty (Pfizer) DO Rich Garcia Work Phone: [facility] 04-13-2020 COVID-19 mRNA, Comirnaty (Pfizer) DO Rich Garcia Work Phone: [facility] 12-08-2019 influenza virus vaccine, split virus (incl. purified surface antigen) Rich Jose Other [facility] Other 01-05-2019 pneumococcal polysaccharide vaccine, 23 valent Rich Garcia Other [facility] Other 12-03-2018 influenza virus vaccine, split virus (incl. purified surface antigen) Rich Garcia Other [facility] Other 12-15-2017 influenza virus vaccine, split virus (incl. purified surface antigen) Rich Jose Other [facility] Other 12-10-2016 tetanus and diphther ia toxoids, adsorbed, preservative free, for adult use (5 Lf of tetanus toxoid and 2 Lf of diphtheria toxoid) Rich Garcia Other [facility] Other 12-12-2015 tetanus and diphther ia toxoids, adsorbed, preservative free, for adult use (5 Lf of tetanus toxoid and 2 Lf of diphtheria toxoid) Rich Garcia Other [facility] Other 11-15-2015 pneumococcal conjuga te vaccine, 13 valent Rich Garcia Other [facility] Other 12-19-2014 tetanus and diphther ia toxoids, adsorbed, preservative free, for adult use (5 Lf of tetanus toxoid and 2 Lf of diphtheria toxoid) Rich Garcia Other [facility] Other 12-14-2012 tetanus and diphther ia toxoids, adsorbed, preservative free, for adult use (5 Lf of tetanus toxoid and 2 Lf of diphtheria toxoid) Rich Garcia Other [facility] Other Payers Date Payer Category Payer Self-pay [id number] 2021 Unknown [id number] 2021 Private Health Insurance [employer]IC [employer]ERCIAL [id number] 1965 Unknown [id number]. 2.356 1965 Unknown [id number] [id number]. 2.593 1965 Unknown [id number] [id number]. 2.593 1965 Unknown [id number] 2.16840.1.606658.3.579. 2.593 1965 Unknown [id number] 2.16840.1.141910.3.579. 2.593 1965 Unknown [id number] 2.16.840.1.868975.3.579. 2.593 1965 Unknown [id number] 2.16.840.1.231789.3.579. 2.593 1965 Unknown [id number] 2.16.840.1.171131.3.579. 2.593 1965 Unknown [id number] 2.16.840.1.122357.3.579. 2.1259 1959 Unknown [id number] [id number] Unknown [id number] [id number]. 2.531 Social History Date Type Detail Facility Start: 01-28-2021 Tobacco smoking status [facility] Never smoked tobacco (finding) [facility] Start: 1965 Sex Assigned At Female F [facility] Sex Assigned At [facility] Other Tobacco smoking status [facility] Tobacco smoking consumption unknown [facility] Start: 1965 Sex assigned at Not on file [facility] History of Present illness Narrative 01-04-2024 JAD Granados - 01/04/2024 11:00 AM EST Note Date & Type Note Facility 01-04-2024 History of Presen t illness Narrative Reason for Appointment: Patient ID: Sierra Alberts is a 58 y.o. female who presents for No chief complaint on file. Patient presents today for Annual Exam. MEDICATIONS Current Outpatient Medications Medication Instructions Calcium Carb-Cholecalciferol (Calcium 600 + D) 600-5 MG-MCG tablet Oral folic acid (FOLVITE) 1 mg, Oral, Daily methotrexate 2.5 mg, Oral, Every 12 hours for 3 doses per week, Follow directions carefully, and ask to explain any part you do not understand. Take exactly as directed. NIFEdipine CC (ADALAT CC) 30 mg, Oral, Daily before breakfast, Do not crush, chew, or split. ALLERGIES No Known Allergies PROBLEMS Active Ambulatory Problems Diagnosis Date Noted No Active Ambulatory Problems Resolved Ambulatory Problems Diagnosis Date Noted No Resolved Ambulatory Problems No Additional Past Medical History HISTORY PAST MEDICAL HISTORY SOCIAL HISTORY No past medical history on file. Social History Tobacco Use Smoking status: Not on file Smokeless tobacco: Not on file Substance Use Topics Alcohol use: Not on file Drug use: Not on file FAMILY HISTORY No family history on file. SURGICAL HISTORY No past surgical history on file. REVIEW OF SYSTEMS Review of Systems: Review of Systems Constitutional: Negative. HENT: Negative. Eyes: Negative. Respiratory: Negative. Cardiovascular: Negative. Gastrointestinal: Negative. Genitourinary: Negative. Musculoskeletal: Negative. Skin: Negative. Neurological: Negative. All other systems reviewed and are negative. Hematological: Negative. Endocrine: Negative. Allergic/Immunologic: Negative. OBJECTIVE Objective: Physical Exam Constitutional: Appearance: Normal appearance. Genitourinary: Right Adnexa: not tender and no mass present. Left Adnexa: not tender and no mass present. No cervical discharge. Breasts: Breasts are soft. Right: Normal. Left: Normal. HENT: Head: Normocephalic. Nose: Nose normal. Mouth/Throat: Mouth: Mucous membranes are moist. Cardiovascular: Rate and Rhythm: Normal rate. Pulmonary: Effort: Pulmonary effort is normal. Abdominal: General: Bowel sounds are normal. Palpations: Abdomen is soft. Musculoskeletal: General: Normal range of motion. Cervical back: Normal range of motion. Neurological: General: No focal deficit present. Mental Status: She is alert. Skin: General: Skin is warm and dry. Psychiatric: Mood and Affect: Mood normal. Vitals and nursing note reviewed. Exam conducted with a ventilating engineer present. Vitals: There is no height or weight on file to calculate BMI. BP: No LMP recorded. ASSESSMENT & PLAN ICD-10-CM 1. Postmenopausal state Z78.0 2. Well woman exam with routine gynecological exam Z01.419 THIN PREP TIS PAP AND HR HPV DNA Annual Exam: Patient presents today for an annual exam. Patient states she is doing well and has no complaints. Pap was obtained without difficulty. No orders of the defined types were placed in this encounter. Follow Up: Patient is to return in one year for annual unless needed otherwise. Documented by Yasmine Mahmood on behalf of: JAD Granados documented in this encounter [facility] Evaluation note 12-18-2022 Note Date & Type [...] patient on monthly SBE and yearly mammograms. [facility] Other Evaluation note 04-11-2022 Note Date & [...] of symptoms to lungs, SOB or CP. [facility] Other Evaluation note 03-11-2022 Note Date & Type Note Facility 03-11-2022 Evaluation note Encounter Date Diagnosis Assessment Notes Mar, Acute bronchitis due to other specified organisms (ICD-10 - J20.8) Instructed to use Robitussin or Mucinex for cough, saline or Flonase NS for congestion, Tylenol for pain and fever. Mar, Progressive systemic sclerosis (ICD-10 - M34.0) Continue DMARDS per Rheumatology. Immunosuppres sed due to disease and treatment, empiric treatment of any infection necessary [facility] Other Evaluation note Note Date & Type Note Facility Evaluation note No assessment information [facility] Work Phone: Evaluation note Note Date & Type Note Facility Evaluation note No Information [facility] [employer] [facility] [employer] Other Evaluation note Note Date & Type Note Facility Evaluation note Diagnosis Postmenopausal state Asymptomatic postmenopausal status (age-related) (natural) Well woman exam with routine gynecological exam Routine gynecological examination documented in this encounter [facility] History general Narrative - Reported Note Date & Type Note Facility History general Narrative - Reported Type Medical History Scleroderma Medical History Breast cancer screening by mammo gram Medical History Progressive systemic sclerosis Medical History Raynaud''s phenomenon without ga ngrene Medical History Age-related osteopor osis without current pathological fracture Surgical History HYSTERECTOMY Hospitalization History see surgical history [facility] Other Chief Complaint and Reason for Visit [...] Rich Garcia DO Primary Care Provider Active Sales Team Manager Relationship Specialty Start Date End Date Rich Garcia MD [address] [place] [address] PCP - General Internal Medicine 12/29/22 Sales Team Manager Relationship Specialty Start Date End Date Rich Garcia MD [address] [place] [address] PCP - General Internal Medicine 12/29/22 Sales Team Manager Relationship Specialty Start Date End Date Rich Garcia MD [address] [place] [address] PCP - General Internal Medicine 12/29/22 Goals (unrecognized section and content) Goals may be documented in a n alternate sectionNo InformationNo InformationNo InformationNo Information INFORMATION SOURCE (unrecogn ized section and content) DATE CREATED AUTHOR 04/05/2022 [facility] DATE CREATED AUTHOR AUTHOR'S ORGANIZ ATION 04/05/2022 [facility] DATE CREATED AUTHOR AUTHOR'S ORGANIZ ATION 05/19/[address] [facility] DATE CREATED AUTHOR AUTHOR'S ORGANIZ ATION 01/05/2024 [facility] EPIC REASON FOR VISIT (unrecogniz ed section and content) Reason Comments Well Women Visit FOR RECORDS PERTAINING TO PATIENTS WHO ARE [...] BE BASED ON THE PRIMARY CLINICAL RECORDS. [employer] provides no warranty or guarantee of the accuracy or completeness of information in this document.
[2024-04-25 10:17] LABS: Bilirubin Urine NEGATIVE (NEGATIVE); Blood Urine NEGATIVE (NEGATIVE); Clarity Urine CLEAR (CLEAR); Color Urine YELLOW (YELLOW); Glucose Urine UA NEGATIVE (NEGATIVE); Ketones Urine NEGATIVE (NEGATIVE); Leukocyte Esterase Urine NEGATIVE (NEGATIVE); Nitrite Urine NEGATIVE (NEGATIVE); Protein Urine NEGATIVE (NEG/TRACE); Specific Gravity Urine 1.025 (1.005-1.025); Urobilinogen Urine 0.2 EU/dL (0.2-1.0); pH Urine 5.5 (5.0-9.0)
[2024-04-25 10:28] LABS: RBC Urine NONE SEEN #/HPF (0-2); WBC Urine NONE SEEN #/HPF (NONE SEEN)
[2024-04-25 10:29] LABS: Bacteria Urine TRACE #/HPF (NONE SEEN); Cast Seen? NONE SEEN #/LPF (NONE SEEN); Crystals Seen? None Seen #/HPF (None Seen); Mucus Urine TRACE (NONE SEEN); Squamous Epithelial Cell Urine MODERATE #/LPF (NONE/RARE)
[2024-04-25 10:39] LABS: Erythrocyte Sedimentation Rate 48 mm/hr (<=30)
[2024-04-25 10:56] LABS: Alanine Aminotransferase 18 U/L (14-59); Albumin Level 3.7 g/dL (3.4-5.0); Alkaline Phosphatase 72 U/L (46-116); Anion Gap 11.9; Aspartate Amino Transferase 18 U/L (15-37); BUN Creatinine Ratio 14.7; Bilirubin Total 0.4 mg/dL (0.2-1.0); Calcium 9.1 mg/dL (8.5-10.1); Carbon Dioxide 28.3 mmol/L (21.0-32.0); Chloride 105 mmol/L (98-107); Estimated GFR (African America >60 (>=60 mL/min/1.73m^2); Estimated GFR (Non-African Ame 56 (>=60 mL/min/1.73m^2); Globulin 3.8 g/dL; Glucose 81 mg/dL (74-106); Phosphorus 3.3 mg/dL (2.6-4.7); Potassium 4.2 mmol/L (3.5-5.1); Sodium 141 mmol/L (136-145); Total Protein 7.5 g/dL (6.4-8.2)
[2024-04-26 05:07] LABS: Complement C3, Serum 129 mg/dL (82-167); Complement C4, Serum 19 mg/dL (12-38)
[2024-04-26 15:08] LABS: Complement, Total (CH50) >60 U/mL (>41)
== END 2024-04-25 09:52 | disposition home or self-care (01) ==
LOC: LAB 09:51
DX: N34.0 Urethral abscess (principal); I73.00 Raynaud's syndrome without gangrene; M81.0 Age-related osteoporosis without current pathological fracture; Z79.899 Other long term (current) drug therapy
CPT/HCPCS: 36415; 80053; 81001; 83735; 84100; 85025; 85652; 86160; 86162

== ENCOUNTER 2024-10-04 10:40 | Outpatient (OUT) | payer OTHER, SELFPAY ==
--- OUTSIDE RECORDS SUMMARY | 2024-10-04 10:41 | XMS_ITS | Encounter Summary ---
Author Organization [facility] Address [address] [place] [address] Care Team Providers Care Fixed Capital Clerk Name Role Phone Rich Garcia DO Primary Care Provider [phone] Encounter Details Date Type Department Care Team (Late st Contact Info) Description 12/18/2023 Clinisync Result Encounter [facility] External Department Unsolicited Stephanie Reed PA [address] [place], [facility] Social History Tobacco Use Types Packs/Day Years Used Date Smoking Tobacco: Never Assessed Comments Unknown Sex and Gender Information Value Date Recorded Sex Assigned at Not on file Legal Sex Female 7:21 PM EDT Gender Identity Not on file Sexual Orientation Not on file documented as of this encounter Plan of Treatment Upcoming Encounters Date Type Department Care Team (Late st Contact Info) Description 01/10/2025 11:00 AM EST Office Visit [facility] [address] [place] [phone] Stephanie Reed PA [address] [place], [facility] documented as of this encounter Procedures Procedure Name Priority Date/Time Associated Diagnosis Comments MM TOMOSYNTHESIS SCREENING BI 12/18/2023 12:48 PM EDT documented in this encounter Results * MM TOMOSYNTHESIS SCREENING BI (12/18/2023 12:48 PM EDT) Anatomical Region Laterality Modality Other 12/18/2023 12:4 8 PM EDT Narrative 12/18/2023 12:49 PM EDT [facility] [place] [id number] Mammography Report Signed Patient: MADELINE ALBERTS MR#: [id number] : 1965 Acct:[id number] Age/Sex: 58 / F ADM Date: 12/18/23 Loc: MAMMO Attending Dr: Stephanie Reed Ordering Physician: Stephanie Reed Results: Date of Service: 12/18/23 Follow Up: Procedure(s): MM tomosynthesis screening BI Accession Number(s): [id number] cc: Stephanie Reed; Physician,Non-Staff M.DOsito Patient Name: MADELINE ALBERTS MR#: [id number] : 1965 Exam Date: 12/18/2023 Ordering Doctor: JAD Reed . RADIOLOGY REPORT PROCEDURE: MM TOMOSYNTHESIS SCREENING BI COMPARISON: MG MAMM SCREEN 3D PATRICA CAD, 11/14/2021. MM TOMOSYNTHESIS SCREENING BI, 12/05/2022. INDICATIONS: Screening Calculator Name NCI Breast Cancer Risk Assessment Tool 5 Year Breast Cancer Risk 3.40% Lifetime Breast Cancer Risk 18.40% Personal Breast Cancer No Personal Ovarian Cancer No Treatments None Family Cancers Sister with breast cancer at age 69; Aunt-maternal with breast cancer at age 60; Aunt-maternal with breast cancer at age 60. LOCATION: [facility] BREAST COMPOSITION: The breasts are extremely dense, which lowers the sensitivity of mammography. FINDINGS: DIAGNOSTIC CATEGORY 2--BENIGN FINDING. NO CHANGE FROM COMPARISON. Scattered benign-appearing nodules are present. Scattered benign-appearing calcifications are present. RIGHT BREAST: No significant suspicious finding. LEFT BREAST: No significant suspicious finding. RECOMMENDATIONS: ROUTINE MAMMOGRAM AND CLINICAL EVALUATION IN 12 MONTHS. PLEASE NOTE: A NORMAL MAMMOGRAM DOES NOT EXCLUDE THE POSSIBILITY OF BREAST CANCER. A CLINICALLY SUSPICIOUS PALPABLE LUMP SHOULD BE BIOPSIED. Dictated by: Erik Chong MD on 12/18/2023 at 12:47 Approved by: Erik Chong MD on 12/18/2023 at 12:48 Dictated By: Erik Chong M.D. Signed By: 12/18/23 1249 DD/ 1248 TD/TT: Rib Sawyer: Procedure Note Radiology, Radiologist, - 12/18/2023 [facility] [place] [id number] Mammography Report Signed Patient: MADELINE ALBERTS JMR#: [id number] : 1965Acct:[id number] Age/Sex: 58 / FADM Date: 12/18/23 Loc: MAMMO Attending Dr: Stephanie Reed Ordering Physician: Stephanie ReedResults: Date of Service: 12/18/23Follow Up: Procedure(s): MM tomosynthesis screening BI Accession Number(s): [id number] cc: Stephanie Reed; Physician,Non-Staff M.DOisto Patient Name: MADELINE ALBERTS MR#: [id number] : 1965 Exam Date: 12/18/2023 Ordering Doctor: JAD Reed . RADIOLOGY REPORT PROCEDURE: MM TOMOSYNTHESIS SCREENING BI COMPARISON: MG MAMM SCREEN 3D PATRICA CAD, 11/14/2021. MM TOMOSYNTHESIS SCREENING BI, 12/05/2022. INDICATIONS: Screening Calculator Name NCI Breast Cancer Risk Assessment Tool 5 Year Breast Cancer Risk 3.40% Lifetime Breast Cancer Risk 18.40% Personal Breast Cancer No Personal Ovarian Cancer No Treatments None Family Cancers Sister with breast cancer at age 69; Aunt-maternal with breast cancer at age 60; Aunt-maternal with breast cancer at age 60. LOCATION: [facility] BREAST COMPOSITION: The breasts are extremely dense, which lowers the sensitivity of mammography. FINDINGS: DIAGNOSTIC CATEGORY 2--BENIGN FINDING. NO CHANGE FROM COMPARISON.Scattered benign-appearing nodules are present. Scattered benign-appearing calcifications are present. RIGHT BREAST: No significant suspicious finding. LEFT BREAST: No significant suspicious finding. RECOMMENDATIONS: ROUTINE MAMMOGRAM AND CLINICAL EVALUATION IN 12 MONTHS. PLEASE NOTE: A NORMAL MAMMOGRAM DOES NOT EXCLUDE THE POSSIBILITY OFBREAST CANCER. A CLINICALLY SUSPICIOUS PALPABLE LUMP SHOULD BE BIOPSIED. Dictated by: Erik Chong MD on 12/18/2023 at 12:47 Approved by: Erik Chong MD on 12/18/2023 at 12:48 Dictated By: Erik Chong M.D. Signed By:12/18/23 1249 DD/ 1248 TD/TT: Rib Sawyer: us [address] [facility] Final Result documented in this encounter Visit Diagnoses Not on filedocumented in this encounter Care Teams Fixed Capital Clerk Relationship Specialty Start Date End Date Rich Garcia DO PCP - General Internal Medicine 12/29/22 documented as of this encounter
--- OUTSIDE RECORDS SUMMARY | 2024-10-04 10:41 | XMS_ITS | Encounter Summary ---
Author Organization [facility] Address [address] [place] [address] Care Team Providers Care Account Receivable Clerk Name Role Phone Rich Garcia DO Primary Care Provider [phone] Encounter Details Date Type Department Care Team (Late st Contact Info) Description 01/19/2023 Clinisync Result Encounter [facility] External Department Unsolicited Stephanie Keith PA [address] [place] [id number] Social History Tobacco Use Types Packs/Day Years [...] 01/10/2025 11:00 AM EST Office Visit [facility] [address] [phone] Stephanie Keith PA [address] [place], [facility]11 documented as of this encounter Procedures Procedure Name Priority Date/Time Associated Diagnosis Comments XR DEXA AXIAL SKELETON 01/19/2023 11:55 AM EST documented in this encounter Results * XR DEXA AXIAL SKELETON (01/19/2023 11:55 AM EST) Anatomical Region Laterality Modality Other 01/19/2023 11:5 5 AM EST Narrative 01/19/2023 11:55 AM EST [address] [address] XRay Report Signed Patient: MADELINE ALBERTS MR#: [id number] : 1965 Acct:[id number] Age/Sex: 57 / F ADM Date: 01/19/23 Loc: [facility] Attending Dr: Stephanie Keith Ordering Physician: Stephanie Keiht Date of Service: 01/19/23 Procedure(s): XR DEXA axial skeleton Accession Number(s): [id number] cc: Stephanie Keith; Rich Garcia D.O. [place] [id number] Patient Name: MADELINE ALBERTS MRN: [id number] date: 1965 Sex: F Assigned Patient Location: [facility] Current Patient Location: [facility] Accession/Order Number: [id number] Exam Date: 01/19/2023 11:10 Report Date: 01/19/2023 11:55 At the request of: STEPHANIE KEITH Procedure: XR DEXA axial skeleton EXAMINATION: XR DEXA axial skeleton HISTORY: Postmenopausal State Z78.0 COMPARISON: DEXA bone densitometry 11/29/2020 (femur), 10/30/2016 (spine) TECHNIQUE: Dual-energy X-ray absorptiometry (DXA) was performed. FINDINGS: SPINE ANALYSIS: Average bone mineral density is 0.859 g/cm2. T-score (standard deviation relative to young adult mean): -2.7 . +1.1% change since prior study. HIP ANALYSIS: Lowest bone mineral density is within the left femoral neck, 0.619 g/cm2. T-score (standard deviation relative to young adult mean): -3.0 . -2.6% change since prior study. XR/XR DEXA axial skeleton IMPRESSION: [employer] Organization Classification: Osteoporosis - High Fracture Risk Electronically authenticated by: ALEXANDER DENTON Date: 01/19/2023 11:55 Dictated By: Alexander Denton M.D. Signed By: 01/19/23 1158 DD/ 1155 TD/TT: Pharmacist Technician: Procedure Note Radiology, Radiologist, - 01/19/[address] [address] XRay Report Signed Patient: MADELINE ALBERTS R#: [id number] : 1965Acct:[id number] Age/Sex: 57 / FADM Date: 01/19/23 Loc: RAD Attending Dr: Stephanie Keith Ordering Physician: Stephanie Keith Date of Service: 01/19/23 Procedure(s): XR DEXA axial skeleton Accession Number(s): [id number] cc: Stephanie Keith; Rich Garcia D.O. [facility] [place] [id number] Patient Name: MADELINE ALBERTS MRN: [id number] date: 1965 Sex: F Assigned Patient Location: [facility] Current Patient Location: [facility] Accession/Order Number: [id number] Exam Date: 01/19/2023 11:10 Report Date: 01/19/2023 11:55 At the request of: STEPHANIE KEITH Procedure: XR DEXA axial skeleton EXAMINATION: XR DEXA axial skeleton HISTORY: Postmenopausal State Z78.0 COMPARISON: DEXA bone densitometry 11/29/2020 (femur), 10/30/2016 (spine) TECHNIQUE: Dual-energy X-ray absorptiometry (DXA) was performed. FINDINGS: SPINE ANALYSIS: Average bone mineral density is 0.859 g/cm2. T-score (standard deviation relative to young adult mean): -2.7 . +1.1% change since prior study. HIP ANALYSIS: Lowest bone mineral density is within the left femoral neck, 0.619 g/cm2. T-score (standard deviation relative to young adult mean): -3.0 . -2.6% change since prior study. XR/XR DEXA axial skeleton IMPRESSION: [employer] Organization Classification: Osteoporosis - High Fracture Risk Electronically authenticated by: ALEXANDER DENTON Date: 01/19/2023 11:55 Dictated By: Alexander Denton M.D. Signed By:01/19/23 1158 DD/ 1155 TD/TT: Pharmacist Technician: us [address] [facility] Final Result documented in this encounter Visit Diagnoses Not on filedocumented in this encounter Care Teams Account Receivable Clerk Relationship Specialty Start Date End Date Rich Garcia DO PCP - General Internal Medicine 12/29/22 documented as of this encounter"
--- OUTSIDE RECORDS SUMMARY | 2024-10-04 10:41 | XMS_ITS | Clinical Summary ---
Author Organization [facility] Address [address] [place] [address] Phone Care Team Providers Care Barge Captain Name Role Phone Unavailable Primary Care Provider Unavailabl e Social History Tobacco Use Types Packs/Day Years Used Date Smoking Tobacco: Never Assessed Comments Unknown Sex and Gender Information Value Date Recorded Sex Assigned at Not on file Legal Sex Female 9:07 PM EST Gender Identity Not on file Sexual Orientation Not on file Last Filed Vital Signs Vital Sign Reading Time Taken Comments Blood Pressure 135/91 06/13/2023 8:51 AM EDT Pulse - - Temperature 36.7 C (98.1 F) 06/13/2023 8:51 AM EDT Respiratory Rate 71 06/13/2023 8:51 AM EDT Oxygen Saturation - - Inhaled Oxygen Concentration - - Weight - - Height - - Body Mass Index - - Plan of Treatment Health Maintenance Due Date Last Done Comments CT Colonography 1965 Colonoscopy 1965 Colorectal Cancer Screening 1965 FIT-DNA (Cologuard) 1965 FIT 1965 HIV Screening 1965 Lipid Panel 1965 Sigmoidoscopy 1965 Yearly Adult Physical 1965 MMR Vaccines (1 of 1 - Stand remigio series) 1966 Hepatitis C Screening 12/01/1983 Hepatitis B Vaccines (1 of 3 - 19+ 3-dose series) 1984 Cervical Cancer Screening 1986 HPV/Cotest 1986 Pap Smear 1986 DTaP/Tdap/Td Vaccines (1 - Tdap) 12/01/1987 Mammogram 2005 Pneumococcal Vaccine (1 of 1 - PCV) 12/01/2015 Zoster Vaccines (1 of 2) 12/01/2015 COVID-19 Vaccine (1 - 2023-2 5 season) 2023 Influenza Vaccine (#1) 2024 HIB Vaccines Aged Out No longer eligi ble based on patient's age to complete this topic HPV Vaccines Aged Out No longer eligi ble based on patient's age to complete this topic Hepatitis A Vaccines Aged Out No long er eligible based on patient's age to complete this topic IPV Vaccines Aged Out No longer eligi ble based on patient's age to complete this topic Meningococcal Vaccine Aged Out No tavia tim eligible based on patient's age to complete this topic Rotavirus Vaccines Aged Out No longer eligible based on patient's age to complete this topic
--- OUTSIDE RECORDS SUMMARY | 2024-10-04 10:42 | XMS_ITS | Clinical Summary ---
Author Organization [facility] Address [address] [place] [address] Care Team Providers Care Munitions Worker Name Role Phone Rich Garcia DO Primary Care Provider [phone] Allergies Active Allergy Reactions Criticality Noted Date Comments Penicillamine Rash Low 01/04/2024 Medications methotrexate 2.5 MG tablet Take 2.5 mg by mouth 3 (three) doses per week. Take doses 12 (twelve) hours apart from each other.. Follow directions carefully, and ask to explain any part you do not understand. Take exactly as directed. Active folic acid (Folvite) 1 MG tablet Take 1 mg by mouth in the morning. Active NIFEdipine CC (Adalat CC) 30 MG 24 hr tablet Take 30 mg by mouth in the morning. Take before meals. Do not crush, chew, or split. . Active Calcium Carb-Cholecalci ferol (Calcium 600 + D) 600-5 MG-MCG tablet Take by mouth. A ctive denosumab (Prolia) 60 MG/ML solution prefilled syringe EVERY 6 MONTHS Active Social History Tobacco Use Types Packs/Day Years Used Date Smoking Tobacco: Never Assessed Comments No Sex and Gender Information Value Date Recorded Sex Assigned at Not on file Legal Sex Female 7:21 PM EDT Gender Identity Not on file Sexual Orientation Not on file Last Filed Vital Signs Vital Sign Reading Time Taken Comments Blood Pressure 110/78 01/04/2024 11:13 AM EST Pulse - - Temperature - - Respiratory Rate - - Oxygen Saturation - - Inhaled Oxygen Concentration - - Weight 47.2 kg (104 lb) 01/04/2024 11:13 AM EST Height 157.5 cm (5' 2 ) 01/04/2024 11:13 AM EST Body Mass Index 19.02 01/04/2024 11:13 AM EST Plan of Treatment Upcoming Encounters Date Type Department Care Team (Late st Contact Info) Description 01/10/2025 11:00 AM EST Office Visit [facility] [address] [place] [address] Stephanie Reed PA [address] [facility] [place] [address] Health Maintenance Due Date Last Done Comments CT Colonography 1965 Colonoscopy 1965 Colorectal Cancer Screening 1965 FIT-DNA 1965 FIT 1965 FOBT 1965 Sigmoidoscopy 1965 Influenza Vaccine (#1) 2024 , 12/05/2022, 12/13/2021, Additional history exists Mammogram 12/17/2024 12/18/2023, 12/05/2022 Cervical Cancer Screening 01/03/2029 HPV/Cotest 01/03/2029 Pap Smear 01/03/2029 01/04/2024 Procedures Procedure Name Priority Date/Time Associated Diagnosis Comments PAP SMEAR Routine 01/04/2024 12:00 AM EST MM TOMOSYNTHESIS SCREENING BI 12/18/2023 12:48 PM EDT from Last 3 Months or Most Recently Relevant to Health Maintenance Results * Pap Smear (01/04/2024 12:00 AM EST) Swab Cervical swab / Unknown us Stephanie ST[facility] [facility] CYTOLOGY ORDERABLES Final Re sult EXTERNAL LAB * MM TOMOSYNTHESIS SCREENING BI (12/18/2023 12:48 PM EDT) Anatomical Region Laterality Modality Other 12/18/2023 12:4 8 PM EDT Narrative 12/18/2023 12:49 PM EDT The [address] [address] Mammography Report Signed Patient: MADELINE ALBERTS MR#: [id number] : 1965 Acct:[id number] Age/Sex: 58 / F ADM Date: 12/18/23 Loc: MAMMO Attending Dr: Stephanie Reed Ordering Physician: Stephanie Reed Results: Date of Service: 12/18/23 Follow Up: Procedure(s): MM tomosynthesis screening BI Accession Number(s): [id number] cc: Stephanie Reed; Physician,Non-Staff M.D. Patient Name: MADELINE ALBERTS MR#: [id number] : 1965 Exam Date: 12/18/2023 Ordering Doctor: [...] breast cancer at age 60. LOCATION: The [facility] BREAST COMPOSITION: The breasts are extremely dense, [...] Signed By: 12/18/23 1249 DD/ 1248 TD/TT: Machine Farmworker: Procedure Note Radiology, RadiologistMD - 12/18/2023 [place] [address] Mammography Report Signed Patient: MADELINE ALBERTS JMR#: [id number] : 1965Acct:[id number] Age/Sex: 58 / FADM Date: 12/18/23 Loc: MAMMO Attending Dr: Stephanie Reed Ordering Physician: Stephanie ReedResults: Date of Service: 12/18/23Follow Up: Procedure(s): MM tomosynthesis screening BI Accession Number(s): [id number] cc: Stephanie Reed; Physician,Non-Staff M.DOsito Patient Name: MADELINE ALBERTS MR#: [id number] : 1965 Exam Date: 12/18/2023 Ordering Doctor: [...] breast cancer at age 60. LOCATION: [facility] BREAST COMPOSITION: The breasts are extremely dense, [...] M.D. Signed By:12/18/23 1249 DD/ 1248 TD/TT: Machine Farmworker: [facility] Final Result from Last 3 Months or Most Recently Relevant to Health Maintenance Insurance [employer] Care Teams Munitions Worker Relationship Specialty Start Date End Date Rich Garcia DO PCP - General Internal Medicine 12/29/22
--- OUTSIDE RECORDS SUMMARY | 2024-10-04 10:42 | XMS_ITS | Encounter Summary ---
Author Organization [facility] Address [address] [facility] [place] [address] Care Team Providers Care Supervisor Firearms Name Role Phone Rich Garcia DO Primary Care Provider Encounter Details Date Type Department Care Team (Late st Contact Info) Description 12/05/2022 Clinisync Result Encounter [facility] External Department Unsolicited Stephanie eRed PA [address] [facility] [address] [place], [facility] Social History Tobacco Use Types Packs/Day [...] 11:00 AM EST Office Visit [facility] [address] [facility] [facility] [place] [phone] Stephanie Reed PA [address] [facility] [address] [place], [facility]11 documented as of this encounter Procedures Procedure Name Priority Date/Time Associated Diagnosis Comments MM TOMOSYNTHESIS SCREENING BI 12/05/2022 1:39 PM EDT documented in this encounter Results * MM TOMOSYNTHESIS SCREENING BI (12/05/2022 1:39 PM EDT) Anatomical Region Laterality Modality Other 12/05/2022 1:39 PM EDT Narrative 12/05/2022 1:39 PM EDT The [address] [address] Mammography Report Signed Patient: MADELINE ALBERTS MR#: [id number] : 1965 Acct:[id number] Age/Sex: 57 / F ADM Date: 12/05/22 Loc: MAMMO Attending Dr: Stephanie Reed Ordering Physician: Stephanie Reed Results: Date of Service: 12/05/22 Follow Up: Procedure(s): MM tomosynthesis screening BI Accession Number(s): [id number] cc: Stephanie Reed; Physician,Non-Staff M.DOsito Patient: MADELINE ALBERTS. Exam Date: 12/05/2022 : 1965 Gender:F Ordering : JAD Reed . Admission #: [id number] Family : Non-Staff Physician Order #: [id number] CLICK HERE TO VIEW EXAM RADIOLOGY REPORT PROCEDURE: MM TOMOSYNTHESIS SCREENING BI COMPARISON: MG MAMM SCREEN 3D PATRICA CAD, 11/13/2020. MG MAMM SCREEN 3D PATRICA CAD, 11/14/2021. INDICATIONS: Screening Calculator Name NCI Breast Cancer Risk Assessment Tool 5 Year Breast Cancer Risk 1.30% Lifetime Breast Cancer Risk 7.80% Personal Breast Cancer No Personal Ovarian Cancer No Treatments None Family Cancers Aunt-maternal with breast cancer at age 60; Aunt-maternal with breast cancer at age 60. LOCATION: The [facility] BREAST COMPOSITION: Extremely dense, which lowers the sensitivity of mammography. FINDINGS: DIAGNOSTIC CATEGORY 1--NEGATIVE. NO CHANGE FROM COMPARISON ASSESSMENT. Scattered benign-appearing calcifications are present. Scattered benign-appearing nodules are present. RIGHT BREAST: No significant suspicious finding. LEFT BREAST: No significant suspicious finding. RECOMMENDATIONS: ROUTINE MAMMOGRAM AND CLINICAL EVALUATION IN 12 MONTHS. PLEASE NOTE: A NORMAL MAMMOGRAM DOES NOT EXCLUDE THE POSSIBILITY OF BREAST CANCER. A CLINICALLY SUSPICIOUS PALPABLE LUMP SHOULD BE BIOPSIED. Dictated by: Erik Chong MD on 12/05/2022 at 13:21 Approved by: Erik Chong MD on 12/05/2022 at 13:39 Dictated By: Erik Chong M.D. Signed By: 12/05/22 1346 DD/ 1339 TD/TT: Charge Entry Specialist: Procedure Note Radiology, Radiologist, MD - 12/05/2022 [place] [address] Mammography Report Signed Patient: MADELINE ALBERTS JMR#: [id number] : 1965Acct:[id number] Age/Sex: 57 / FADM Date: 12/05/22 Loc: MAMMO Attending Dr: Stephanie Reed Ordering Physician: Stephanie ReedResults: Date of Service: 12/05/22Follow Up: Procedure(s): MM tomosynthesis screening BI Accession Number(s): [id number] cc: Stephanie Reed; Physician,Non-Staff MConstantino Patient: MADELINE ALBERTS Exam Date: 12/05/2022 : 1965 Gender:F Ordering : JAD Reed . Admission #: [id number] Family : Non-Staff Physician Order #: [id number] CLICK HERE TO VIEW EXAM RADIOLOGY REPORT PROCEDURE: MM TOMOSYNTHESIS SCREENING BI COMPARISON: MG MAMM SCREEN 3D PATRICA CAD, 11/13/2020. MG MAMM SCREEN 3DBIL CAD, 11/14/2021. INDICATIONS: Screening Calculator Name NCI Breast Cancer Risk Assessment Tool 5 Year Breast Cancer Risk 1.30% Lifetime Breast Cancer Risk 7.80% Personal Breast Cancer No Personal Ovarian Cancer No Treatments None Family Cancers Aunt-maternal with breast cancer at age 60; Aunt-maternal with breast cancer at age 60. LOCATION: The [facility] BREAST COMPOSITION: Extremely dense, which lowers the sensitivity of mammography. FINDINGS: DIAGNOSTIC CATEGORY 1--NEGATIVE. NO CHANGE FROM COMPARISON ASSESSMENT. Scattered benign-appearing calcifications are present. Scattered benign-appearing nodules are present. RIGHT BREAST: No significant suspicious finding. LEFT BREAST: No significant suspicious finding. RECOMMENDATIONS: ROUTINE MAMMOGRAM AND CLINICAL EVALUATION IN 12 MONTHS. PLEASE NOTE: A NORMAL MAMMOGRAM DOES NOT EXCLUDE THE POSSIBILITY OFBREAST CANCER. A CLINICALLY SUSPICIOUS PALPABLE LUMP SHOULD BE BIOPSIED. Dictated by: Erik Chong MD on 12/05/2022 at 13:21 Approved by: Erik Chong MD on 12/05/2022 at 13:39 Dictated By: Erik Chong M.D. Signed By:12/05/22 1340 DD/ 1339 TD/TT: Charge Entry Specialist: us Stephanie [facility] Final Result documented in this encounter Visit Diagnoses Not on filedocumented in this encounter Care Teams Supervisor Firearms Relationship Specialty Start Date End Date Rich Garcia DO PCP - General Internal Medicine 12/29/22 documented as of this encounter
--- OUTSIDE RECORDS SUMMARY | 2024-10-04 10:42 | XMS_ITS | Encounter Summary ---
Author Organization [facility] Address [address] [facility] [place] [address] Care Team Providers Care Health Facilities Surveyor Name Role Phone Rich Garcia DO Primary Care Provider Encounter Details Date Type Department Care Team (Late Contact Info) Description 01/15/2024 Orders Only SULEMA FARRELL [address] [place] [address] [place] [address] Rosa M Luis MA [address] [place] [address] [place] [address] Social History Tobacco Use Types Packs/Day Years Used Date Smoking Tobacco: Never Assessed Comments No Sex and Gender Information Value Date Recorded Sex Assigned at Not on file Legal Sex Female 7:21 PM EDT Gender Identity Not on file Sexual Orientation Not on file documented as of this encounter Plan of Treatment Upcoming Encounters Date Type Department Care Team (Late Contact Info) Description 01/10/2025 11:00 AM EST Office Visit [facility]LEMA FARRELL [address] [place] [address] [place] [address] Stephanie Reed PA [address] [facility] [address] [place], [facility]11 documented as of this encounter Procedures Procedure Name Priority Date/Time Associated Diagnosis Comments PAP SMEAR Routine 01/04/2024 12:00 AM EST documented in this encounter Results * Pap Smear (01/04/2024 12:00 AM EST) Swab Cervical swab / Unknown Stephanie ST[facility] CYTOLOGY ORDERABLES Final Re sult EXTERNAL LAB documented in this encounter Visit Diagnoses Not on filedocumented in this encounter Care Teams Health Facilities Surveyor Relationship Specialty Start Date End Date Rich Garcia DO PCP - General Internal Medicine 12/29/22 documented as of this encounter
[2024-10-04 11:07] LABS: Hematocrit 39.7 % (36.0-48.0); Hemoglobin 12.7 g/dL (12.0-16.0); Immature Granulocytes Abs Auto 0.02 10^3/uL (0.00-0.03); Immature Granulocytes Pct Auto 0.3 % (0.0-0.5); Lymphocytes Absolute Auto 1.6 10^3/uL (1.2-3.8); Mean Corpuscular HGB Conc 32.0 g/dL (29.9-35.2); Mean Corpuscular Hemoglobin 29.1 pg (26.7-34.0); Mean Corpuscular Volume 90.8 fL (81.0-99.0); Platelet Count 219 10^3/uL (150-450); Red Blood Count 4.37 10^6/uL (4.20-5.40); White Blood Count 7.0 10^3/uL (4.0-11.0)
[2024-10-04 11:16] LABS: Glucose Urine UA NEGATIVE (NEGATIVE)
[2024-10-04 11:25] LABS: Alanine Aminotransferase 21 U/L (14-59); Albumin Globulin Ratio 1.0; Albumin Level 3.8 g/dL (3.4-5.0); Alkaline Phosphatase 58 U/L (46-116); Anion Gap 11.1; Aspartate Amino Transferase 22 U/L (15-37); Blood Urea Nitrogen 15.0 mg/dL (7.0-18.0); Calcium 8.9 mg/dL (8.5-10.1); Carbon Dioxide 28.0 mmol/L (21.0-32.0); Chloride 105 mmol/L (98-107); Estimated GFR (African America >60 (>=60 mL/min/1.73m^2); Estimated GFR (Non-African Ame >60 (>=60 mL/min/1.73m^2); Globulin 3.9 g/dL; Glucose 86 mg/dL (74-106); Magnesium 1.8 mg/dL (1.8-2.4); Potassium 4.1 mmol/L (3.5-5.1); Sodium 140 mmol/L (136-145); Total Protein 7.7 g/dL (6.4-8.2)
[2024-10-04 11:57] LABS: Cast Seen? NONE SEEN #/LPF (NONE SEEN); Crystals Seen? None Seen #/HPF (None Seen)
== END 2024-10-04 10:41 | disposition home or self-care (01) ==
LOC: LAB 10:40
PROVIDERS: Visit Provider Registered Nurse
DX: N34.0 Urethral abscess (principal); I73.00 Raynaud's syndrome without gangrene; M81.0 Age-related osteoporosis without current pathological fracture; Z79.899 Other long term (current) drug therapy
CPT/HCPCS: 36415; 80053; 81001; 83735; 84100; 85025; 85652; 86160; 86162

== ENCOUNTER 2024-12-19 13:05 | Outpatient (OUT) | payer OTHER, SELFPAY ==
--- OUTSIDE RECORDS SUMMARY | 2024-12-19 13:08 | XMS_ITS | Encounter Summary ---
Author Organization [facility] Address [address] [facility] [place] [address] Care Team Providers Care Automobile Rental Clerk Name Role Phone Rich Garcia DO Primary Care Provider [phone] Encounter Details Date Type Department Care Team (Late Contact Info) Description 01/15/2024 Orders Only SULEMA FARRELL [address] [place] [address] [place] [address] Rosa M Luis MA [address] [place] [address] [place] [address] Social History Tobacco Use Types Packs/Day Years [...] 11:00 AM EST Office Visit SULEMA FARRELL [address] [place] [address] [place] [address] Stephanie Reed PA [address] [facility] [address] [place], [facility]11 documented as of this encounter Procedures Procedure Name Priority Date/Time Associated Diagnosis Comments PAP SMEAR Routine 01/04/2024 12:00 AM EST documented in this encounter Results * Pap Smear (01/04/2024 12:00 AM EST) Swab Cervical swab / Unknown Stephanie ST[facility] [facility] CYTOLOGY ORDERABLES Final Re sult EXTERNAL LAB documented in this encounter Visit Diagnoses Not on filedocumented in this encounter Care Teams Automobile Rental Clerk Relationship Specialty Start Date End Date Rich Garcia DO PCP - General Internal Medicine 12/29/22 documented as of this encounter
--- OUTSIDE RECORDS SUMMARY | 2024-12-19 13:08 | XMS_ITS | Encounter Summary ---
Author Organization [facility] Address [address] [facility] [[email or web address]] [place] [address] Care Team Providers Care Site Project Manager Name Role Phone Rich Garcia DO Primary Care Provider [phone] Encounter Details Date Type Department Care Team (Late st Contact Info) Description 01/19/2023 Clinisync Result Encounter [facility] External Department Unsolicited Stephanie Keith PA [address] [facility] [address] [place] [id number] Social History Tobacco Use Types Packs/Day Years [...] 11:00 AM EST Office Visit SULEMA FARRELL [address] [facility] [place] [place] [phone] Stephanie Keith PA [address] [facility] [address] [place], [facility] documented as of this encounter Procedures Procedure Name Priority Date/Time Associated Diagnosis Comments XR DEXA AXIAL SKELETON 01/19/2023 11:55 AM EST documented in this encounter Results * XR DEXA AXIAL SKELETON (01/19/2023 11:55 AM EST) Anatomical Region Laterality Modality Other 01/19/2023 11:5 5 AM EST Narrative 01/19/2023 11:55 AM EST [address] [address] XRay Report Signed Patient: MADELINE ALBERTS MR#: [id number] : 1965 Acct:[id number] Age/Sex: 57 / F ADM Date: 01/19/23 Loc: [facility] Attending Dr: Stephanie Keith Ordering Physician: Stephanie Keith Date of Service: 01/19/23 Procedure(s): XR DEXA axial skeleton Accession Number(s): [id number] cc: Stephanie Keith; Rich Garcia D.O. [place] [id number] Patient Name: MADELINE ALBERTS MRN: [id number] date: 1965 Sex: F Assigned Patient Location: [facility] Current Patient Location: [facility] Accession/Order Number: [id number] Exam Date: 01/19/2023 11:10 Report Date: 01/19/2023 [...] - High Fracture Risk Electronically authenticated by: LAEXANDER DENTON Date: 01/19/2023 11:55 Dictated By: Alexander Denton M.D. Signed By: 01/19/23 1158 DD/ 1155 TD/TT: Chess Instructor: Procedure Note Radiology, Radiologist, - 01/19/[address] [address] XRay Report Signed Patient: MADELINE ALBERTS R#: [id number] : 1965Acct:[id number] Age/Sex: 57 / FADM Date: 01/19/23 Loc: RAD Attending Dr: Stephanie Keith Ordering Physician: Stepahnie Keith Date of Service: 01/19/23 Procedure(s): XR DEXA axial skeleton Accession Number(s): [id number] cc: Stephanie Keith; Rich Garcia D.O. The [place] [id number] Patient Name: MADELINE ALBERTS MRN: [id number] date: 1965 Sex: F Assigned Patient Location: [facility] Current Patient Location: [facility] Accession/Order Number: [id number] Exam Date: 01/19/2023 11:10 Report Date: 01/19/2023 [...] M.D. Signed By:01/19/23 1158 DD/ 1155 TD/TT: Chess Instructor: us Stephanie [facility] Final Result documented in this encounter Visit Diagnoses Not on filedocumented in this encounter Care Teams Site Project Manager Relationship Specialty Start Date End Date Rich Garcia DO PCP - General Internal Medicine 12/29/22 documented as of this encounter
--- OUTSIDE RECORDS SUMMARY | 2024-12-19 13:08 | XMS_ITS | Clinical Summary ---
Author Organization [facility] Address [address] [place] [address] Phone Care Team Providers Care Shoe Singer Name Role Phone Unavailable Primary Care Provider [...] 12/01/2015 Zoster Vaccines (1 of 2) 12/01/2015 Influenza Vaccine (#1) 2024 COVID-19 Vaccine ( - 2024-2 6 season) 2024 HIB Vaccines Aged Out No longer [...]
--- NOTE | 2024-12-19 13:09 | MM_ITS ---
Patient Name: SIERRA ALBERTS MR#: [id number] : 1965 Exam Date: 12/19/2024 Ordering Doctor: JAD KEITH . RADIOLOGY REPORT PROCEDURE: MM TOMOSYNTHESIS SCREENING BI COMPARISON: MM TOMOSYNTHESIS SCREENING BI, 12/18/2023. MM TOMOSYNTHESIS SCREENING BI, 12/05/2022. MG MAMM SCREEN 3D PATRICA CAD, 11/14/2021. MG MAMM PATRICA DIAG W CAD DIG, 07/13/2012. INDICATIONS: screening Calculator Name NCI Breast Cancer Risk Assessment Tool 5 Year Breast Cancer Risk 3.50% Lifetime Breast Cancer Risk 18.00% Personal Breast Cancer No Personal Ovarian Cancer No Treatments None Family Cancers Sister with breast cancer at age 69; Aunt-maternal with breast cancer at age ~60; Aunt-maternal with breast cancer at age ~60. LOCATION: The [facility] BREAST COMPOSITION: The breasts are extremely dense, which lowers the sensitivity of mammography. FINDINGS: RIGHT BREAST: No significant suspicious finding. There are several focal asymmetries. LEFT BREAST: No significant suspicious finding. There are similar focal asymmetries . DIAGNOSTIC CATEGORY 2--BENIGN FINDING. NO CHANGE FROM COMPARISON. RECOMMENDATIONS: ROUTINE MAMMOGRAM AND CLINICAL EVALUATION IN 12 MONTHS. Dictated by: Jay Thomas MD on 12/19/2024 at 14:18 Approved by: Jay Thomas MD on 12/19/2024 at 14:19
--- OUTSIDE RECORDS SUMMARY | 2024-12-19 13:09 | XMS_ITS | Encounter Summary ---
Author Organization [facility] Address [address] [facility] [place] [address] Care Team Providers Care Mud Worker Name Role Phone Rich Garcia DO Primary Care Provider [phone] Encounter Details Date Type Department Care Team (Late st Contact Info) Description 12/05/2022 Clinisync Result Encounter NOMS External Department Unsolicited Stephanie Reed PA [address] [facility] [address] [place], [facility]11 Social History Tobacco Use Types Packs/Day Years [...] EST Office Visit [facility] Garcia [facility] [address] [facility] [place] [phone] Stephanie Reed PA [address] [facility] [address] [place], [facility]11 documented as of this encounter Procedures Procedure Name Priority Date/Time Associated Diagnosis Comments MM TOMOSYNTHESIS SCREENING BI 12/05/2022 1:39 PM EDT documented in this encounter Results * MM TOMOSYNTHESIS SCREENING BI (12/05/2022 1:39 PM EDT) Anatomical Region Laterality Modality Other 12/05/2022 1:39 PM EDT Narrative 12/05/2022 1:39 PM EDT The [address] [address] Mammography Report Signed Patient: MADELINE ALBERTS MR#: [id number] : 1965 Acct:[id number] Age/Sex: 57 / F ADM Date: 12/05/22 Loc: MAMMO Attending Dr: Stephanie Reed Ordering Physician: Stephanie Reed Results: Date of Service: 12/05/22 Follow Up: Procedure(s): MM tomosynthesis screening BI Accession Number(s): [id number] cc: Stephanie Reed; Physician,Non-Staff M.DOsito Patient: MADELINE ALBERTS. Exam Date: 12/05/2022 : 1965 Gender:F Ordering : JAD Reed . Admission #: [id number] Family : Non-Staff Physician Order #: [id number] CLICK HERE TO VIEW EXAM RADIOLOGY REPORT [...] breast cancer at age 60. LOCATION: The [facility] BREAST COMPOSITION: Extremely dense, which lowers [...] By: Erik Chong M.D. Signed By: 12/05/22 1342 DD/ 1339 TD/TT: Traditional Chinese Herbalist: Procedure Note Radiology, Radiologist, MD - 12/05/2022 [place] [address] Mammography Report Signed Patient: MADELINE ALBERTS JMR#: [id number] : 1965Acct:[id number] Age/Sex: 57 / FADM Date: 12/05/22 Loc: MAMMO Attending Dr: Stephanie Reed Ordering Physician: Stephanie ReedResults: Date of Service: 12/05/22Follow Up: Procedure(s): MM tomosynthesis screening BI Accession Number(s): [id number] cc: Stephanie Reed; Physician,Non-Staff MConstantino Patient: MADELINE ALBERTS Exam Date: 12/05/2022 : 1965 Gender:F Ordering : JAD Reed . Admission #: [id number] Family : Non-Staff Physician Order #: [id number] CLICK HERE TO VIEW EXAM RADIOLOGY REPORT [...] breast cancer at age 60. LOCATION: The [facility] BREAST COMPOSITION: Extremely dense, which lowers [...] M.D. Signed By:12/05/22 1340 DD/ 1339 TD/TT: Traditional Chinese Herbalist: us Stephanie [facility] Final Result documented in this encounter Visit Diagnoses Not on filedocumented in this encounter Care Teams Mud Worker Relationship Specialty Start Date End Date Rich Garcia DO PCP - General Internal Medicine 12/29/22 documented as of this encounter
--- OUTSIDE RECORDS SUMMARY | 2024-12-19 13:09 | XMS_ITS | Clinical Summary ---
Author Organization [facility] Address [address] [place] [address] Care Team Providers Care Web Project Manager Name Role Phone Rich Garcia DO Primary Care Provider [phone] Allergies Active Allergy Reactions Criticality Noted Date [...] EST Office Visit [facility] [address] [place] [address] Setphanie Reed PA [address] [place] [address] Health Maintenance Due Date Last Done Comments [...] EDT Narrative 12/18/2023 12:49 PM EDT The [address] [address] Mammography Report Signed Patient: MADELINE ALBERTS MR#: [id number] : 1965 Acct:[id number] Age/Sex: 58 / F ADM Date: 12/18/23 Loc: MAMMO Attending Dr: Stephanie Reed Ordering Physician: Stephanie Reed Results: Date of Service: 12/18/23 Follow Up: Procedure(s): MM tomosynthesis screening BI Accession Number(s): [id number] cc: Stephanie Reed; Physician,Non-Staff M.D. Patient Name: MADELINE ALBERTS MR#: [id number] : 1965 Exam Date: 12/18/2023 Ordering Doctor: [...] breast cancer at age 60. LOCATION: The [facility] BREAST COMPOSITION: The breasts are extremely dense, [...] Signed By: 12/18/23 1249 DD/ 1248 TD/TT: Superior Court Judge: Procedure Note Radiology, RadiologistMD - 12/18/2023 [place] [address] Mammography Report Signed Patient: MADELINE ALBERTS JMR#: [id number] : 1965Acct:[id number] Age/Sex: 58 / FADM Date: 12/18/23 Loc: MAMMO Attending Dr: Stephanie Reed Ordering Physician: Stephanie ReedResults: Date of Service: 12/18/23Follow Up: Procedure(s): MM tomosynthesis screening BI Accession Number(s): [id number] cc: Stephanie Reed; Physician,Non-Staff M.DOsito Patient Name: MADELINE ALBERTS MR#: [id number] : 1965 Exam Date: 12/18/2023 Ordering Doctor: [...] breast cancer at age 60. LOCATION: The [facility] BREAST COMPOSITION: The breasts are extremely dense, [...] M.D. Signed By:12/18/23 1249 DD/ 1248 TD/TT: Superior Court Judge: Stephanie [facility] Final Result from Last 3 Months or Most Recently Relevant to Health Maintenance Insurance [employer] Care Teams Web Project Manager Relationship Specialty Start Date End Date Rich Garcia DO PCP - General Internal Medicine 12/29/22
--- OUTSIDE RECORDS SUMMARY | 2024-12-19 13:12 | XMS_ITS | CCD ---
Author Organization [facility] Care Team Providers Care Board Operator Name Role Phone DO Rich Garcia Primary Care Provider [phone] THEREES Ornelas Attending Provider Patricia Ornelas Attending Unavailable Patricia Ornelas Admitting Unavailable Jose, Rich Primary Care Unavailable Jose, Rich Unavailable GRACIE, DR PRINCE Admitting Unavailable BOWMAN, DR PRINCE Attending Unavailable JOES, DR BISHOP Primary Care Unavailable BOWMAN, DR [...] source) Penicillins Drug allergy (disorder) 01-29-20 21 [facility] Repository (4 sources) Penicillin V Drug Allergy Unknown [address] Other (1 source) Penicillins Drug allergy (disorder) 03-02-19 03 [facility] Repository (1 source) Allergies Reconciled Propensity to adverse reactions Unknown [address] Other (2 sources) Substance with penicillin structure and antibacterial mechanism of action (substance) Drug allergy Comment:Rash [address] Other (1 source) patient allergy list reviewed by nurse or physicia Propensity to adverse reactions 12-11-19 Comment:Done [address] Other (3 sources) penicillAMINE Drug Allergy 01-04-20 Rash [facility] Medications Current Medications Medication Drug Class(es) [...] Inhibitor Omeprazole 20 MG (Prior Auth: Rx Ref#:[id number]) Oral for 90 Not-Taking Problems Active Problems [...] 3 Chronic Other aftercare (1 source) 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 [facility] Comment on above: TESTS RESULT FLAG UN ITS REF RANGE LAB Clinician Provided Cytology Information Source.............Vagina No. of containers..01 ThinPrep Vial Age Algo ACOG Liz... 30 01 FLAG LEGEND: L-Low Normal,H-High Normal,LL-Alert Low,HH-Alert High <-Panic Low,>-Panic High,A-Abnormal,AA-Critical Abnormal Performed at: 01 =G [address] [address] Betsy Harris MD, HPV APTIMA Negative Negative [facility] Comment on above: This nucleic acid am plification test detects fourteen high- risk HPV types (16,18,31,33,35,39,45,51,52,56,58,59,66,68) without differentiation. Performed at: =G - [facility] [address] [id number] Leaflet Or Newspaper Deliverer: Betsy Harris MD, Phone: [phone] Performed at: WB - [facility], [place] [id number] Leaflet Or Newspaper Deliverer: Betsy Harris MD, Phone: [phone] IGP, APTIMA HPV, RFX 16/18,45 Note . [facility] Comment on above: TESTS RESULT FLAG UN ITS REF RANGE LAB DIAGNOSIS: 02 NEGATIVE FOR INTRAEPITHELIAL LESION OR MALIGNANCY. REACTIVE CELLULAR CHANGES AND/OR REPAIR ARE PRESENT. CELLULAR CHANGES ASSOCIATED WITH ATROPHY ARE PRESENT. Specimen adequacy: 02 Satisfactory for evaluation. Endocervical component may not be distinguished in cases of atrophy. Performed by: 02 Savanah Brower, Process Checker (ASCP) Electronically si... 02 Meghan Talley MD, [...] High,A-Abnormal,AA-Critical Abnormal Performed at: 02 WB [facility] [address] [address] Betsy Harris MD, [facility] C3 and C4 COMPLEMENTon 05-13 Complement C3, Serum 99 mg/dL Normal 82-167 [facility] Comment on above: Performed By: #### V ITAD #### [facility] [address] [address] [address] Garfield Nelson Complement C4, Serum 14 mg/dL Normal 12-38 [facility] Comment on above: Performed By: #### V ITAD #### [facility] [address] [place] [address] Dr. Garfield Nelson COMPLEMENT TOTAL (CH50)on Complement, Total (CH50) >60 Normal >41 [facility] Comment on above: Result Comment: Age Male [...] values. Performed By: #### C H50T #### [facility] [address] [place] [address] Dr. Garfield Nelson CBC AUTO DIFFon 05-12-2022 BASO # 0.0 103/ul Normal 0.0-0.1 [facility] Comment on above: Performed By: #### C BC #### [facility] [address] [place] [address] Dr. Garfield Nelson Basophils/100 WBC (Bld) 0.4 % Normal 0.2-2.0 [facility] Comment on above: Performed By: #### C BC #### [facility] [address] [place] [address] Dr. Garfield Nelson EO # 0.1 103/ul Normal 0.0-0.7 [facility] Comment on above: Performed By: #### C BC #### [facility] [address] [place] [address] Dr. Garfield Nelson Eosinophils/100 WBC (Bld) 1.1 % Normal 0.9-7.0 [facility] Comment on above: Performed By: #### C BC #### [facility] [address] [place] [address] Dr. Garfield Nelson Erythrocyte distribution width (RBC) [Ratio] 14.9 % Normal 11.0-15.0 [facility] Comment on above: Performed By: #### C BC #### [facility] [address] [place] [address] Dr. Garfield Nelson Hematocrit (Bld) [Volume fraction] 38.3 % Normal 36.0-48.0 [facility] Comment on above: Performed By: #### C BC #### [facility] [address] [place] [address] Dr. Garfield Nelson Hemoglobin (Bld) [Mass/Vol] 12.2 g/dL Normal 12.0-16.0 [facility] Comment on above: Performed By: #### C BC #### [facility] [address] [place] [address] Dr. Garfield Nelson IG # 0.03 10e3/ul Normal 0.00-0.03 [facility] Comment on above: Performed By: #### C BC #### [facility] [address] [place] [address] Dr. Garfield Nelson IG % 0.3 % Normal 0.0-0.5 [facility] Comment on above: Performed By: #### C BC #### [facility] [address] [place] [address] Dr. Garfield Nelson LYMPH # 2.1 103/ul Normal 1.2-3.8 [facility] Comment on above: Performed By: #### C BC #### [facility] [address] [place] [address] Dr. Garfield Nelson Lymphocytes/100 WBC (Bld) 22.6 % Normal 20.5-60.0 [facility] Comment on above: Performed By: #### C BC #### [facility] [address] [place] [address] Dr. Garfield Nelson MANUAL DIFF REQ NO Normal [facility] Comment on above: Performed By: #### C BC #### [facility] [address] [place] [address] Dr. Garfield Nelson MCH (RBC) [Entitic mass] 28.5 pg Normal 26.7-34.0 [facility] Comment on above: Performed By: #### C BC #### [facility] [address] [place] [address] Dr. Garfield Nelson MCHC (RBC) [Mass/Vol] 31.9 g/dL Normal 29.9-35.2 [facility] Comment on above: Performed By: #### C BC #### [facility] [address] [place] [address] Dr. Garfield Nelson MCV (RBC) [Entitic vol] 89.5 fL Normal 81.0-99.0 [facility] Comment on above: Performed By: #### C BC #### [facility] [address] [place] [address] Dr. Garfield Nelosn MONO # 1.0 103/ul Critically high 0.3-0.8 [facility] Comment on above: Performed By: #### C BC #### [facility] [address] [place] [address] Dr. Garfield Nelson Monocytes/100 WBC (Bld) 10.5 % Normal 1.7-12.0 [facility] Comment on above: Performed By: #### C BC #### [facility] [address] [place] [address] Dr. Garfield Nelson NEUT # 6.1 103/ul Normal 1.4-6.5 [facility] Comment on above: Performed By: #### C BC #### [facility] [address] [place] [address] Dr. Garfield Nelson Neutrophils/100 WBC (Bld) 65.1 % Normal 43.0-75.0 [facility] Comment on above: Performed By: #### C BC #### [facility] [address] [address] [address] Garfield Nelson Platelet mean volume (Bld) [Entitic vol] 12.1 fL Normal 9.5-13.5 [facility] Comment on above: Performed By: #### C BC #### [facility] [address] [place] [address] Dr. Garfield Nelson PLT 276 103/ul Normal 150-450 [facility] Comment on above: Performed By: #### C BC #### [facility] [address] [place] [address] Dr. Garfield Nelson RBC 4.28 106/ul Normal 4.20-5.40 [facility] Comment on above: Performed By: #### C BC #### [facility] [address] [place] [address] Dr. Garfield Nelson WBC 9.4 103/ul Normal 4.0-11.0 [facility] Comment on above: Performed By: #### C BC #### [facility] [address] [place] [address] Dr. Garfield Nelson MAGNESIUMon 05-12-2022 Magnesium [Mass/Vol] 2.0 mg/dL Normal 1.8-2.4 [facility] Comment on above: Performed By: #### V ITAD #### [facility] [address] [place] [address] Dr. Garfield Nelson PHOSPHORUSon 05-12-2022 Phosphate [Mass/Vol] 3.0 mg/dL Normal 2.6-4.7 [facility] Comment on above: Performed By: #### V ITAD #### [facility] [address] [place] [address] Dr. Garfield Nelson PROF 14(COMP METB)on 023 Albumin [Mass/Vol] 3.8 g/dL Normal 3.4-5.0 [facility] Comment on above: Performed By: #### V ITAD #### [facility] [address] [place] [address] Dr. Garfield Nelson Albumin/Globulin [Mass ratio] 1.0 {ratio} Normal [facility] Comment on above: Performed By: #### V ITAD #### [facility] [address] [place] [address] Dr. Garfield Nelson ALP [Catalytic activity/Vol] 93 U/L Normal 46-116 [facility] Comment on above: Performed By: #### V ITAD #### [facility] [address] [place] [address] Dr. Garfield Nelson ALT [Catalytic activity/Vol] 19 U/L Normal 14-59 [facility] Comment on above: Performed By: #### V ITAD #### [facility] [address] [place] [address] Dr. Garfield Nelson Anion gap [Moles/Vol] 9.5 mmol/L Normal [facility] Comment on above: Performed By: #### V ITAD #### [facility] [address] [place] [address] Dr. Garfield Nelson AST [Catalytic activity/Vol] 22 U/L Normal 15-37 [facility] Comment on above: Performed By: #### V ITAD #### [facility] [address] [place] [address] Dr. Garfield Nelson Bilirubin [Mass/Vol] 0.3 mg/dL Normal 0.2-1.0 [facility] Comment on above: Performed By: #### V ITAD #### [facility] [address] [place] [address] Dr. Garfield Nelson Calcium [Mass/Vol] 8.7 mg/dL Normal 8.5-10.1 [facility] Comment on above: Performed By: #### V ITAD #### [facility] [address] [address] [address] Garfield Nelson Chloride [Moles/Vol] 104 mmol/L Normal 98-107 [facility] Comment on above: Performed By: #### V ITAD #### [facility] [address] [place] [address] Dr. Garfield Nelson CO2 [Moles/Vol] 29.0 mmol/L Normal 21.0-32.0 [facility] Comment on above: Performed By: #### V ITAD #### [facility] [address] [address] [address] Garfield Nelson Creatinine [Mass/Vol] 0.65 mg/dL Normal 0.55-1.02 [facility] Comment on above: Performed By: #### V ITAD #### [facility] [address] [address] [address] Garfield Nelson EGFR-AF ECUADOREAN >60 Normal >=60 [facility] Comment on above: Performed By: #### V ITAD #### [facility] [address] [address] [address] Garfield Nelson EGFR-NON AF ECUADOREAN >60 Normal >=60 [facility] Comment on above: Performed By: #### V ITAD #### [facility] [address] [place] [address] Dr. Garfield Nelson Globulin (S) [Mass/Vol] 3.8 g/dL Normal [facility] Comment on above: Performed By: #### V ITAD #### [facility] [address] [place] [address] Dr. Garfield Nelson Glucose [Mass/Vol] 87 mg/dL Normal 74-106 [facility] Comment on above: Performed By: #### V ITAD #### [facility] [address] [place] [address] Dr. Garfield Nelson Potassium [Moles/Vol] 3.5 mmol/L Normal 3.5-5.1 [facility] Comment on above: Performed By: #### V ITAD #### [facility] [address] [place] [address] Dr. Garfield Nelson Protein [Mass/Vol] 7.6 g/dL Normal 6.4-8.2 [facility] Comment on above: Performed By: #### V ITAD #### [facility] [address] [place] [address] Dr. Garfield Nelson Sodium [Moles/Vol] 139 mmol/L Normal 136-145 [facility] Comment on above: Performed By: #### V ITAD #### [facility] [address] [address] [address] Garfield Nelson Urea nitrogen [Mass/Vol] 15.0 mg/dL Normal 7.0-18.0 [facility] Comment on above: Performed By: #### V ITAD #### [facility] [address] [place] [address] Dr. Garfield Nelson Urea nitrogen/Creatinine [Mass ratio] 23.1 mg/mg Normal [facility] Comment on above: Performed By: #### V ITAD #### [facility] [address] [place] [address] Dr. Garfield [facility] mm/hr Critically high <=30 [facility] Comment on above: Performed By: #### M G, PHOS, CMP #### [facility] [address] [place] [address] Dr. Garfield Nelson UA RANDOM W/MICROSCOPICon BACTERIA NONE SEEN Normal NONE SEEN [facility] Comment on above: Performed By: #### C SUITE #### [facility] [address] [place] [address] Dr. Garfield Nelson Bilirubin Ql (U) Negative Normal NEGATIVE [facility] Comment on above: Performed By: #### C SUITE #### [facility] [address] [place] [address] Dr. Garfield Nelson CAST NONE SEEN Normal NONE SEEN [facility] Comment on above: Performed By: #### C SUITE #### [facility] [address] [place] [address] Dr. Garfield Nelson Clarity (U) CLEAR Normal CLEAR [facility] Comment on above: Performed By: #### C SUITE #### [facility] [address] [place] [address] Dr. Garfield Nelson Color (U) LT. YELLOW Normal YELLOW [facility] Comment on above: Performed By: #### C SUITE #### [facility] [address] [place] [address] Dr. Garfield Nelson Crystals LM Nom (Urine sed) NONE SEEN Normal NONE SEEN [facility] Comment on above: Performed By: #### C SUITE #### [facility] [address] [address] [address] Garfield Nelson Epithelial cells LM Ql (Urine sed) RARE Normal NONE SEEN /RARE [facility] Comment on above: Performed By: #### C SUITE #### [facility] [address] [place] [address] Dr. Garfield Nelson Glucose Ql (U) Negative Normal NEGATIVE [facility] Comment on above: Performed By: #### C SUITE #### [facility] [address] [address] [address] Garfield Nelson Hemoglobin Ql (U) Negative Normal NEGATIVE [facility] Comment on above: Performed By: #### C SUITE #### [facility] [address] [place] [address] Dr. Garfield Nelson Ketones Ql (U) Negative Normal NEGATIVE [facility] Comment on above: Performed By: #### C SUITE #### [facility] [address] [place] [address] Dr. Garfield Nelson LEUKOCYTES Negative Normal NEGATIVE [facility] Comment on above: Performed By: #### C SUITE #### [facility] [address] [place] [address] Dr. Garfield Nelson MUCOUS NONE SEEN Normal NONE SEEN [facility] Comment on above: Performed By: #### C SUITE #### [facility] [address] [place] [address] Dr. Garfield Nelson Nitrite Ql (U) Negative Normal NEGATIVE [facility] Comment on above: Performed By: #### C SUITE #### [facility] [address] [place] [address] Dr. Garfield Nelson pH (U) 7.0 [pH] Normal 5-9 [facility] Comment on above: Performed By: #### C SUITE #### [facility] [address] [place] [address] Dr. Garfield Nelson RBC NONE SEEN Abnormal 0-2 [facility] Comment on above: Performed By: #### C SUITE #### [facility] [address] [place] [address] Dr. Garfield Nelson SPEC GRAVITY <=1.005 Abnormal 1.005-<=1.025 [facility] Comment on above: Performed By: #### C SUITE #### [facility] [address] [place] [address] Dr. Garfield Nelson UA PROTEIN Negative Normal NEGATIVE/ TRACE [facility] Comment on above: Performed By: #### C SUITE #### [facility] [address] [place] [address] Dr. Garfield Nelson Urobilinogen Qn (U) 0.2 {Marquise'U}/dL Normal 0.2 - 1. 0 [facility] Comment on above: Performed By: #### C SUITE #### [facility] [address] [place] [address] Dr. Garfield Nelson WBC NONE SEEN Normal NONE SEEN [facility] Comment on above: Performed By: #### C SUITE #### [facility] [address] [place] [address] Dr. Garfield Nelson C3 and C4 COMPLEMENTon 02-12 Complement C3, Serum 117 mg/dL Normal 82-167 [facility] Comment on above: Performed By: #### V ITAD #### [facility] [address] [place] [address] Dr. Garfield Nelson Complement C4, Serum 20 mg/dL Normal 12-38 [facility] Comment on above: Performed By: #### V ITAD #### [facility] [address] [place] [address] Dr. Garfield Nelson COMPLEMENT TOTAL (CH50)on Complement, Total (CH50) >60 Normal >41 [facility] Comment on above: Result Comment: Age Male [...] values. Performed By: #### C H50T #### [facility] [address] [place] [address] Dr. Garfield Nelson CBC AUTO DIFFon 02-11-2022 BASO # 0.1 103/ul Normal 0.0-0.1 [facility] Comment on above: Performed By: #### V ITAD #### [facility] [address] [place] [address] Dr. Garfield Nelson Basophils/100 WBC (Bld) 0.6 % Normal 0.2-2.0 [facility] Comment on above: Performed By: #### V ITAD #### [facility] [address] [place] [address] Dr. Garfield Nelson EO # 0.1 103/ul Normal 0.0-0.7 [facility] Comment on above: Performed By: #### V ITAD #### [facility] [address] [place] [address] Dr. Garfield Nelson Eosinophils/100 WBC (Bld) 1.4 % Normal 0.9-7.0 [facility] Comment on above: Performed By: #### V ITAD #### [facility] [address] [place] [address] Dr. Garfield Nelson Erythrocyte distribution width (RBC) [Ratio] 14.2 % Normal 11.0-15.0 [facility] Comment on above: Performed By: #### V ITAD #### [facility] [address] [place] [address] Dr. Garfield Nelson Hematocrit (Bld) [Volume fraction] 39.1 % Normal 36.0-48.0 [facility] Comment on above: Performed By: #### V ITAD #### [facility] [address] [place] [address] Dr. Garfield Nelson Hemoglobin (Bld) [Mass/Vol] 12.7 g/dL Normal 12.0-16.0 [facility] Comment on above: Performed By: #### V ITAD #### [facility] [address] [place] [address] Dr. Garfield Nelson IG # 0.02 10e3/ul Normal 0.00-0.03 [facility] Comment on above: Performed By: #### V ITAD #### [facility] [address] [place] [address] Dr. Garfield Nelson IG % 0.2 % Normal 0.0-0.5 [facility] Comment on above: Performed By: #### V ITAD #### [facility] [address] [place] [address] Dr. Garfield Nelson LYMPH # 2.0 103/ul Normal 1.2-3.8 [facility] Comment on above: Performed By: #### V ITAD #### [facility] [address] [place] [address] Dr. Garfield Nelson Lymphocytes/100 WBC (Bld) 24.9 % Normal 20.5-60.0 [facility] Comment on above: Performed By: #### V ITAD #### [facility] [address] [place] [address] Dr. Garfield Nelson MANUAL DIFF REQ NO Normal [facility] Comment on above: Performed By: #### V ITAD #### [facility] [address] [place] [address] Dr. Garfield Nelson MCH (RBC) [Entitic mass] 28.5 pg Normal 26.7-34.0 [facility] Comment on above: Performed By: #### V ITAD #### [facility] [address] [place] [address] Dr. Garfield Nelson MCHC (RBC) [Mass/Vol] 32.5 g/dL Normal 29.9-35.2 [facility] Comment on above: Performed By: #### V ITAD #### [facility] [address] [place] [address] Dr. Garfield Nelson MCV (RBC) [Entitic vol] 87.7 fL Normal 81.0-99.0 [facility] Comment on above: Performed By: #### V ITAD #### [facility] [address] [place] [address] Dr. Garfield Nelson MONO # 1.0 103/ul Critically high 0.3-0.8 [facility] Comment on above: Performed By: #### V ITAD #### [facility] [address] [address] [address] Garfield Nelson Monocytes/100 WBC (Bld) 12.3 % Critically high 1.7-12.0 [facility] Comment on above: Performed By: #### V ITAD #### [facility] [address] [place] [address] Dr. Garfield Nelson NEUT # 4.9 103/ul Normal 1.4-6.5 [facility] Comment on above: Performed By: #### V ITAD #### [facility] [address] [place] [address] Dr. Garfield Nelson Neutrophils/100 WBC (Bld) 60.6 % Normal 43.0-75.0 [facility] Comment on above: Performed By: #### V ITAD #### [facility] [address] [place] [address] Dr. Garfield Nelson Platelet mean volume (Bld) [Entitic vol] 12.0 fL Normal 9.5-13.5 [facility] Comment on above: Performed By: #### V ITAD #### [facility] [address] [place] [address] Dr. Garfield Nelson PLT 247 103/ul Normal 150-450 [facility] Comment on above: Performed By: #### V ITAD #### [facility] [address] [place] [address] Dr. Garfield Nelson RBC 4.46 106/ul Normal 4.20-5.40 [facility] Comment on above: Performed By: #### V ITAD #### [facility] [address] [place] [address] Dr. Garfield Nelson WBC 8.1 103/ul Normal 4.0-11.0 [facility] Comment on above: Performed By: #### V ITAD #### [facility] [address] [place] [address] Dr. Garfield Nelson MAGNESIUMon 02-11-2022 Magnesium [Mass/Vol] 2.0 mg/dL Normal 1.8-2.4 [facility] Comment on above: Performed By: #### DAVID FengS, CMP #### [facility] [address] [place] [address] Dr. Garfield Nelson PHOSPHORUSon 02-11-2022 Phosphate [Mass/Vol] 3.6 mg/dL Normal 2.6-4.7 [facility] Comment on above: Performed By: #### Sekou Dougherty PHOS, CMP #### [facility] [address] [place] [address] Dr. Garfield Nelson PROF 14(COMP METB)on 022 Albumin [Mass/Vol] 3.8 g/dL Normal 3.4-5.0 [facility] Comment on above: Performed By: #### RAKESH Feng, CMP #### [facility] [address] [place] [address] Dr. Garfield Nelson Albumin/Globulin [Mass ratio] 1.0 {ratio} Normal [facility] Comment on above: Performed By: #### RAKESH Feng, CMP #### [facility] [address] [place] [address] Dr. Garfield Nelson ALP [Catalytic activity/Vol] 69 U/L Normal 46-116 [facility] Comment on above: Performed By: #### DAVID FengS, CMP #### [facility] [address] [place] [address] Dr. Garfield Nelson ALT [Catalytic activity/Vol] 14 U/L Normal 14-59 [facility] Comment on above: Performed By: #### RAKESH Feng, CMP #### [facility] [address] [place] [address] Dr. Garfield Nelson Anion gap [Moles/Vol] 12.4 mmol/L Normal [facility] Comment on above: Performed By: #### DAVID FengS, CMP #### [facility] [address] [place] [address] Dr. Garfield Nelson AST [Catalytic activity/Vol] 22 U/L Normal 15-37 [facility] Comment on above: Performed By: #### DAVID FengS, CMP #### [facility] [address] [address] [address] Garfield Nelson Bilirubin [Mass/Vol] 0.3 mg/dL Normal 0.2-1.0 [facility] Comment on above: Performed By: #### Sekou Dougherty PHOS, CMP #### [facility] [address] [place] [address] Dr. Garfield Nelson Calcium [Mass/Vol] 8.6 mg/dL Normal 8.5-10.1 [facility] Comment on above: Performed By: #### Sekou Dougherty PHOS, CMP #### [facility] [address] [place] [address] Dr. Garfield Nelson Chloride [Moles/Vol] 101 mmol/L Normal 98-107 [facility] Comment on above: Performed By: #### Sekou Dougherty PHOS, CMP #### [facility] [address] [place] [address] Dr. Garfield Nelson CO2 [Moles/Vol] 29.4 mmol/L Normal 21.0-32.0 [facility] Comment on above: Performed By: #### Sekou Dougherty PHOS, CMP #### [facility] [address] [place] [address] Dr. Garfield Nelson Creatinine [Mass/Vol] 0.79 mg/dL Normal 0.55-1.02 [facility] Comment on above: Performed By: #### Sekou Dougherty PHOS, CMP #### [facility] [address] [place] [address] Dr. Garfield Nelson EGFR-AF ECUADOREAN >60 Normal >=60 [facility] Comment on above: Performed By: #### Sekou Dougherty PHOS, CMP #### [facility] [address] [place] [address] Dr. Garfield Nelson EGFR-NON AF ECUADOREAN >60 Normal >=60 [facility] Comment on above: Performed By: #### Sekou Dougherty PHOS, CMP #### [facility] [address] [place] [address] Dr. Garfield Nelson Globulin (S) [Mass/Vol] 3.9 g/dL Normal [facility] Comment on above: Performed By: #### M Farhat PHOS, CMP #### [facility] [address] [address] [address] Garfield Nelson Glucose [Mass/Vol] 109 mg/dL Critically high 74-106 [facility] Comment on above: Performed By: #### M Farhat, PHOS, CMP #### [facility] [address] [address] [address] Garfield Nelson Potassium [Moles/Vol] 3.8 mmol/L Normal 3.5-5.1 [facility] Comment on above: Performed By: #### M Farhat, PHOS, CMP #### [facility] [address] [place] [address] Dr. Garfield Nelson Protein [Mass/Vol] 7.7 g/dL Normal 6.4-8.2 [facility] Comment on above: Performed By: #### M Farhat PHOS, CMP #### [facility] [address] [place] [address] Dr. Garfield Nelson Sodium [Moles/Vol] 139 mmol/L Normal 136-145 [facility] Comment on above: Performed By: #### M Farhat PHOS, CMP #### [facility] [address] [place] [address] Dr. Garfield Nelson Urea nitrogen [Mass/Vol] 17.0 mg/dL Normal 7.0-18.0 [facility] Comment on above: Performed By: #### M Farhat PHOS, CMP #### [facility] [address] [place] [address] Dr. Garfield Nelson Urea nitrogen/Creatinine [Mass ratio] 21.5 mg/mg Normal [facility] Comment on above: Performed By: #### M Farhat PHOS, CMP #### [facility] [address] [place] [address] Dr. Garfield Nelson SED RATE [facility] 2021 SED RATE 40 mm/hr Critically high <=30 [facility] Comment on above: Performed By: #### C SUITE #### [facility] [address] [place] [address] Dr. Garfield Nelson UA RANDOM W/MICROSCOPICon BACTERIA NONE SEEN Normal NONE SEEN [facility] Comment on above: Performed By: #### C SUITE #### [facility] [address] [place] [address] Dr. Garfield Nelson Bilirubin Ql (U) Negative Normal NEGATIVE [facility] Comment on above: Performed By: #### C SUITE #### [facility] [address] [place] [address] Dr. Garfield Nelson CAST NONE SEEN Normal NONE SEEN [facility] Comment on above: Performed By: #### C SUITE #### [facility] [address] [place] [address] Dr. Garfield Nelson Clarity (U) CLEAR Normal CLEAR [facility] Comment on above: Performed By: #### C SUITE #### [facility] [address] [place] [address] Dr. Garfield Nelson Color (U) LT. YELLOW Normal YELLOW [facility] Comment on above: Performed By: #### C SUITE #### [facility] [address] [place] [address] Dr. Garfield Nelson Crystals LM Nom (Urine sed) NONE SEEN Normal NONE SEEN [facility] Comment on above: Performed By: #### C SUITE #### [facility] [address] [place] [address] Dr. Garfield Nelson Epithelial cells LM Ql (Urine sed) NONE SEEN Normal NONE SEEN /RARE [facility] Comment on above: Performed By: #### C SUITE #### [facility] [address] [place] [address] Dr. Garfield Nelson Glucose Ql (U) Negative Normal NEGATIVE [facility] Comment on above: Performed By: #### C SUITE #### [facility] [address] [place] [address] Dr. Garfield Nelson Hemoglobin Ql (U) Negative Normal NEGATIVE [facility] Comment on above: Performed By: #### C SUITE #### [facility] [address] [place] [address] Dr. Garfield Nelson Ketones Ql (U) Negative Normal NEGATIVE [facility] Comment on above: Performed By: #### C SUITE #### [facility] [address] [place] [address] Dr. Garfield Nelson LEUKOCYTES Negative Normal NEGATIVE [facility] Comment on above: Performed By: #### C SUITE #### [facility] [address] [place] [address] Dr. Garfield Nelson MUCOUS NONE SEEN Normal NONE SEEN [facility] Comment on above: Performed By: #### C SUITE #### [facility] [address] [place] [address] Dr. Garfield Nelson Nitrite Ql (U) Negative Normal NEGATIVE [facility] Comment on above: Performed By: #### C SUITE #### [facility] [address] [place] [address] Dr. aGrfield Nelson pH (U) 6.0 [pH] Normal 5-9 [facility] Comment on above: Performed By: #### C SUITE #### [facility] [address] [place] [address] Dr. Garfield Nelson RBC 0-2 Normal 0-2 [facility] Comment on above: Performed By: #### C SUITE #### [facility] [address] [place] [address] Dr. Garfield Nelson SPEC GRAVITY 1.025 Normal 1.005-<=1.025 [facility] Comment on above: Performed By: #### C SUITE #### [facility] [address] [place] [address] Dr. Garfield Nelson UA PROTEIN Negative Normal NEGATIVE/ TRACE [facility] Comment on above: Performed By: #### C SUITE #### [facility] [address] [place] [address] Dr. Garfield Nelson Urobilinogen Qn (U) 0.2 {Marquise'U}/dL Normal 0.2 - 1. 0 [facility] Comment on above: Performed By: #### C SUITE #### [facility] [address] [place] [address] Dr. Garfield Nelson WBC NONE SEEN Normal NONE SEEN [facility] Comment on above: Performed By: #### C SUITE #### [facility] [address] [address] [address] Garfield Nelson [facility] echo transthoracicon [facility] echo transthoracic [facility] Main [place] [address] [place], [place] [id number] Echocardiogram Signed Patient: Sierra Alberts MR#: [id number] : 1965 Acct:[id number] Age/Sex: 56 / F ADM Date: 01/02/22 Loc: Room: Type: [facility] Attending Dr: Patricia SALEH Ordering Provider: THERESE Shaw Date of Service: 01/02/22/ [facility] echo transthoracic: Pulmonary fibrosis. PHTN. SOB. snf drug therapy. Copies to: Mayte Way MD, [facility] THERESE Shaw BSA: 1.5 m2 BP: 115/83 mmHg HR: 75 Reason For Study: Pulmonary fibrosis. PHTN. SOB. snf drug therapy. History: pulmonary hypertension Interpretation Summary [...] 01/02/22 1254 Signed By: Mayte Way MD, [facility] 01/02/[address] [facility] PAP ACOG PANEL 2: 30 to 65on 12-23-2021 . . Normal [facility] Comment on above: Result Comment: Perf ormed at: WB Performed By: #### RAKESH Feng CMP #### [facility] [address] [place] [address] Dr. Garfield Nelson Age Gdln ACOG Testing 30-65 Normal [facility] Comment on above: Performed By: #### RAKESH Feng CMP #### [facility] [address] [address] [address] Garfield Nelson DIAGNOSIS: Comment Normal [facility] Comment on above: Result Comment: NEGA TIVE FOR INTRAEPITHELIAL LESION OR MALIGNANCY. CELLULAR CHANGES ASSOCIATED WITH ATROPHY ARE PRESENT. Performed at: WB Performed By: #### RAKESH Feng, CMP #### [facility] [address] [address] [address] Garfield Nelson HPV Aptima Negative Normal Negative [facility] Comment on above: Result Comment: This nucleic acid amplification test detects fourteen high-risk HPV types (16,18,31,33,35,39,45,51,52,56,58,59,66,68) without differentiation. Performed at: =G Performed By: #### RAKESH Feng CMP #### [facility] [address] [address] [address] Garfield Nelson Methodology: Comment Normal [facility] Comment on above: Result Comment: This liquid based ThinPrep(R) pap test was screened with the use of an image guided system. Performed at: WB Performed By: #### M RAKESH Dougherty, CMP #### [facility] [address] [address] [address] Garfield Nelson Note: Comment Normal [facility] Comment on above: Result Comment: [...] By: #### M RAKESH Dougherty, CMP #### [facility] [address] [place] [address] Dr. Garfield Nelson Performed by: Comment Normal [facility] Comment on above: Result Comment: Dinesh Noble Process Checker (ASCP) Performed at: WB Performed By: #### RAKESH Feng, CMP #### [facility] [address] [address] [address] Garfield Nelson Specimen adequacy: Comment Normal [facility] Comment on above: Result Comment: Sati sfactory for evaluation. Endocervical component may not be distinguished in cases of atrophy. Performed at: WB Performed By: #### RAKESH Feng, CMP #### [facility] [address] [address] [address] Garfield Nelson CBC AUTO DIFFon 12-17-2021 BASO # 0.0 103/ul Normal 0.0-0.1 [facility] Comment on above: Performed By: #### V ITAD #### [facility] [address] [place] [address] Dr. Garfield Nelson Basophils/100 WBC (Bld) 0.6 % Normal 0.2-2.0 [facility] Comment on above: Performed By: #### V ITAD #### [facility] [address] [place] [address] Dr. Garfield Nelson EO # 0.2 103/ul Normal 0.0-0.7 [facility] Comment on above: Performed By: #### V ITAD #### [facility] [address] [place] [address] Dr. Garfield Nelson Eosinophils/100 WBC (Bld) 2.8 % Normal 0.9-7.0 [facility] Comment on above: Performed By: #### V ITAD #### [facility] [address] [place] [address] Dr. Garfield Nelson Erythrocyte distribution width (RBC) [Ratio] 14.0 % Normal 11.0-15.0 [facility] Comment on above: Performed By: #### V ITAD #### [facility] [address] [place] [address] Dr. Garfield Nelson Hematocrit (Bld) [Volume fraction] 42.3 % Normal 36.0-48.0 [facility] Comment on above: Performed By: #### V ITAD #### [facility] [address] [place] [address] Dr. Garfield Nelson Hemoglobin (Bld) [Mass/Vol] 13.3 g/dL Normal 12.0-16.0 [facility] Comment on above: Performed By: #### V ITAD #### [facility] [address] [place] [address] Dr. Garfield Nelson IG # 0.02 10e3/ul Normal 0.00-0.03 [facility] Comment on above: Performed By: #### V ITAD #### [facility] [address] [place] [address] Dr. Garfield Nelson IG % 0.3 % Normal 0.0-0.5 [facility] Comment on above: Performed By: #### V ITAD #### [facility] [address] [place] [address] Dr. Garfield Nelson LYMPH # 1.9 103/ul Normal 1.2-3.8 [facility] Comment on above: Performed By: #### V ITAD #### [facility] [address] [place] [address] Dr. Garfield Nelson Lymphocytes/100 WBC (Bld) 30.0 % Normal 20.5-60.0 [facility] Comment on above: Performed By: #### V ITAD #### [facility] [address] [place] [address] Dr. Garfield Nelson MANUAL DIFF REQ NO Normal [facility] Comment on above: Performed By: #### V ITAD #### [facility] [address] [place] [address] Dr. Garfield Nelson MCH (RBC) [Entitic mass] 28.5 pg Normal 26.7-34.0 [facility] Comment on above: Performed By: #### V ITAD #### [facility] [address] [place] [address] Dr. Garfield Nelson MCHC (RBC) [Mass/Vol] 31.4 g/dL Normal 29.9-35.2 [facility] Comment on above: Performed By: #### V ITAD #### [facility] [address] [place] [address] Dr. Garfield Nelson MCV (RBC) [Entitic vol] 90.8 fL Normal 81.0-99.0 [facility] Comment on above: Performed By: #### V ITAD #### [facility] [address] [place] [address] Dr. Garfield Nelson MONO # 0.9 103/ul Critically high 0.3-0.8 [facility] Comment on above: Performed By: #### V ITAD #### [facility] [address] [place] [address] Dr. Garfield Nelson Monocytes/100 WBC (Bld) 13.4 % Critically high 1.7-12.0 [facility] Comment on above: Performed By: #### V ITAD #### [facility] [address] [place] [address] Dr. Garfield Nelson NEUT # 3.4 103/ul Normal 1.4-6.5 [facility] Comment on above: Performed By: #### V ITAD #### [facility] [address] [place] [address] Dr. Garfield Nelson Neutrophils/100 WBC (Bld) 52.9 % Normal 43.0-75.0 [facility] Comment on above: Performed By: #### V ITAD #### [facility] [address] [place] [address] Dr. Garfield Nelson Platelet mean volume (Bld) [Entitic vol] 12.2 fL Normal 9.5-13.5 [facility] Comment on above: Performed By: #### V ITAD #### [facility] [address] [place] [address] Dr. Garfield Nelson PLT 258 103/ul Normal 150-450 [facility] Comment on above: Performed By: #### V ITAD #### [facility] [address] [place] [address] Dr. Garfield Nelson RBC 4.66 106/ul Normal 4.20-5.40 [facility] Comment on above: Performed By: #### V ITAD #### [facility] [address] [place] [address] Dr. Garfield Nelson WBC 6.3 103/ul Normal 4.0-11.0 [facility] Comment on above: Performed By: #### V ITAD #### [facility] [address] [place] [address] Dr. Garfield Nelson LIPID PROFILEon 12-17-2021 CHOL-HDL RATIO NORM SEE BELOW Normal [facility] Comment on above: Result Comment: 3.3 - 4.4 LOW RISK 4.4 - 7.1 AVERAGE RISK 7.1 - 11.0 MODERATE RISK >11.0 HIGH RISK Performed By: #### RAKESH Feng, CMP #### [facility] [address] [place] [address] Dr. Garfield Nelson Cholesterol [Mass/Vol] 204 mg/dL Critically high <=200 [facility] Comment on above: Performed By: #### RAKESH Feng, CMP #### [facility] [address] [place] [address] Dr. Garfield Nelson Cholesterol in HDL [Mass/Vol] 75 mg/dL Critically high 40-60 [facility] Comment on above: Performed By: #### RAKESH Feng, CMP #### [facility] [address] [address] [address] Garfield Nelson Cholesterol in LDL [Mass/Vol] 121.0 mg/dL Normal [facility] Comment on above: Performed By: #### RAKESH Feng, CMP #### [facility] [address] [address] [address] Garfield Nelson Cholesterol.total/Ch olesterol in HDL [Mass ratio] 2.7 {ratio} Normal [facility] Comment on above: Performed By: #### RAKESH Feng, CMP #### [facility] [address] [address] [address] Garfield Nelson HDL NORMAL > or = 60 mg/dl - LO W CARDIOVASCULAR RISK <40 mg/dl - HIGH CARDIOVASCULAR RISK Normal [facility] Comment on above: Performed By: #### RAKESH Feng, CMP #### [facility] [address] [address] [address] Garfield Nelson LDL CALC NORMAL SEE BELOW Normal [facility] Comment on above: Result Comment: <100 mg/dl OPTIMAL 100 - 129 mg/dl NEAR OR ABOVE OPTIMAL 130 - 159 mg/dl BORDERLINE HIGH 160 - 189 mg/dl HIGH >190 mg/dl VERY HIGH Performed By: #### RAKESH Feng, CMP #### [facility] [address] [address] [address] Garfield Nelson Triglyceride [Mass/Vol] 40 mg/dL Normal <=150 [facility] Comment on above: Performed By: #### RAKESH Feng, CMP #### [facility] [address] [address] [address] Garfield Nelson VLDL CALC 8.0 mg/dL Normal [facility] Comment on above: Performed By: #### RAKESH Feng, CMP #### [facility] [address] [address] [address] Garfield Nelson PROF 14(COMP METB)on 022 Albumin [Mass/Vol] 3.8 g/dL Normal 3.4-5.0 [facility] Comment on above: Performed By: #### RAKESH Feng, CMP #### [facility] [address] [address] [address] Garfield Nelson Albumin/Globulin [Mass ratio] 0.9 {ratio} Normal [facility] Comment on above: Performed By: #### M G, PHOS, CMP #### [facility] [address] [address] [address] Garfield Nelson ALP [Catalytic activity/Vol] 65 U/L Normal 46-116 [facility] Comment on above: Performed By: #### M G, PHOS, CMP #### [facility] [address] [address] [address] Garfield Nelson ALT [Catalytic activity/Vol] 19 U/L Normal 14-59 [facility] Comment on above: Performed By: #### M G, PHOS, CMP #### [facility] [address] [place] [address] Dr. Garfield Nelson Anion gap [Moles/Vol] 10.6 mmol/L Normal [facility] Comment on above: Performed By: #### M G, PHOS, CMP #### [facility] [address] [address] [address] Garfield Nelson AST [Catalytic activity/Vol] 18 U/L Normal 15-37 [facility] Comment on above: Performed By: #### M G, PHOS, CMP #### [facility] [address] [place] [address] Dr. Garfield Nelson Bilirubin [Mass/Vol] 0.5 mg/dL Normal 0.2-1.0 [facility] Comment on above: Performed By: #### M G, PHOS, CMP #### [facility] [address] [address] [address] Garfield Nelson Calcium [Mass/Vol] 8.9 mg/dL Normal 8.5-10.1 [facility] Comment on above: Performed By: #### M G, PHOS, CMP #### [facility] [address] [address] [address] Garfield Nelson Chloride [Moles/Vol] 106 mmol/L Normal 98-107 [facility] Comment on above: Performed By: #### M G, PHOS, CMP #### [facility] [address] [address] [address] Garfield Nelson CO2 [Moles/Vol] 28.6 mmol/L Normal 21.0-32.0 [facility] Comment on above: Performed By: #### M G, PHOS, CMP #### [facility] [address] [address] [address] Garfield Nelson Creatinine [Mass/Vol] 0.88 mg/dL Normal 0.55-1.02 [facility] Comment on above: Performed By: #### M G, PHOS, CMP #### [facility] [address] [address] [address] Garfield Nelson EGFR-AF ECUADOREAN >60 Normal >=60 [facility] Comment on above: Performed By: #### M G, PHOS, CMP #### [facility] [address] [address] [address] Garfield Nelson EGFR-NON AF ECUADOREAN >60 Normal >=60 [facility] Comment on above: Performed By: #### M G, PHOS, CMP #### [facility] [address] [address] [address] Garfield Nelson Globulin (S) [Mass/Vol] 4.1 g/dL Normal [facility] Comment on above: Performed By: #### M G, PHOS, CMP #### [facility] [address] [address] [address] Garfield Nelson Glucose [Mass/Vol] 93 mg/dL Normal 74-106 [facility] Comment on above: Performed By: #### M G, PHOS, CMP #### [facility] [address] [address] [address] Garfield Nelson Potassium [Moles/Vol] 4.2 mmol/L Normal 3.5-5.1 [facility] Comment on above: Performed By: #### M G, PHOS, CMP #### [facility] [address] [address] [address] Garfield Nelson Protein [Mass/Vol] 7.9 g/dL Normal 6.4-8.2 [facility] Comment on above: Performed By: #### RAKESH Feng CMP #### [facility] [address] [place] [address] Dr. Garfield Nelson Sodium [Moles/Vol] 141 mmol/L Normal 136-145 [facility] Comment on above: Performed By: #### RAKESH Feng CMP #### [facility] [address] [place] [address] Dr. Garfield Nelson Urea nitrogen [Mass/Vol] 22.0 mg/dL Critically high 7.0-18.0 [facility] Comment on above: Performed By: #### RAKESH Feng CMP #### [facility] [address] [place] [address] Dr. Garfield Nelson Urea nitrogen/Creatinine [Mass ratio] 25.0 mg/mg Normal [facility] Comment on above: Performed By: #### RAKESH Feng CMP #### [facility] [address] [place] [address] Dr. Garfield Nelson TSHon 12-17-2021 TSH 2.939 uIU/mL Normal 0.358-3.740 [facility] Comment on above: Performed By: #### RAKESH Feng CMP #### [facility] [address] [place] [address] Dr. Garfield Nelson VITAMIN D 25 OHon 12-17-2021 VIT D 25-OH 34.5 ng/mL Normal [facility] Comment on above: Performed By: #### V ITAD #### [facility] [address] [place] [address] Dr. Garfield Nelson VIT D RANGES SEE BELOW Normal [facility] Comment on above: Result Comment: <20 ng/mL Vit D deficient 20 - <30 ng/mL Vit D insufficient 30 - 100 ng/mL Vit D sufficient >100 ng/mL Potential Toxicity Performed By: #### V ITAD #### [facility] [address] [place] [address] Dr. Garfield Nelson C3 and C4 COMPLEMENTon 11-14 Complement C3, Serum 109 mg/dL Normal 82-167 [facility] Comment on above: Performed By: #### C SUITE #### [facility] [address] [place], [place] [address] Dr. Garfield Nelson Complement C4, Serum 19 mg/dL Normal 12-38 [facility] Comment on above: Performed By: #### C SUITE #### [facility] [address] [place], [place] [address] Dr. Garfield Nelson MG MAMM SCREEN 3D PATRICA CADon 11-14-2021 MG MAMM SCREEN 3D PATRICA CAD Patient: SIERRA ALBERTS Exam Date: 11/14/2021 : 1965 Gender:F Ordering : DR JUDITH MARTINEZ . Admission #: [id number] Family : Order #: [id number] CLICK HERE TO VIEW EXAM RADIOLOGY REPORT [...] breast cancer at age 60. LOCATION: [facility] BREAST COMPOSITION: Extremely dense, which lowers the [...] MD on 11/14/2021 at 12:25 Normal [facility] COMPLEMENT TOTAL (CH50)on Complement, Total (CH50) >60 Normal >41 [facility] Comment on above: Result Comment: [...] values. Performed By: #### C H50T #### [facility] [address] [place] [address] Dr. Garfield Nelson CBC AUTO DIFFon 11-12-2021 BASO # 0.1 103/ul Normal 0.0-0.1 [facility] Comment on above: Performed By: #### C SUITE #### [facility] [address] [place] [address] Dr. Garfield Nelson Basophils/100 WBC (Bld) 0.7 % Normal 0.2-2.0 [facility] Comment on above: Performed By: #### C SUITE #### [facility] [address] [place] [address] Dr. Garfield Nelson EO # 0.2 103/ul Normal 0.0-0.7 [facility] Comment on above: Performed By: #### C SUITE #### [facility] [address] [place] [address] Dr. Garfield Nelson Eosinophils/100 WBC (Bld) 2.6 % Normal 0.9-7.0 [facility] Comment on above: Performed By: #### C SUITE #### [facility] [address] [place] [address] Dr. Garfield Nelson Erythrocyte distribution width (RBC) [Ratio] 14.1 % Normal 11.0-15.0 [facility] Comment on above: Performed By: #### C SUITE #### [facility] [address] [place] [address] Dr. Garfield Nelson Hematocrit (Bld) [Volume fraction] 42.2 % Normal 36.0-48.0 [facility] Comment on above: Performed By: #### C SUITE #### [facility] [address] [place] [address] Dr. Garfield Nelson Hemoglobin (Bld) [Mass/Vol] 13.2 g/dL Normal 12.0-16.0 [facility] Comment on above: Performed By: #### C SUITE #### [facility] [address] [place] [address] Dr. Garfield Nelson IG # 0.02 10e3/ul Normal 0.00-0.03 [facility] Comment on above: Performed By: #### C SUITE #### [facility] [address] [place] [address] Dr. Garfield Nelson IG % 0.3 % Normal 0.0-0.5 [facility] Comment on above: Performed By: #### C SUITE #### [facility] [address] [place] [address] Dr. Garfield Nelson LYMPH # 2.1 103/ul Normal 1.2-3.8 [facility] Comment on above: Performed By: #### C SUITE #### [facility] [address] [place] [address] Dr. Garfield Nelson Lymphocytes/100 WBC (Bld) 28.2 % Normal 20.5-60.0 [facility] Comment on above: Performed By: #### C SUITE #### [facility] [address] [place] [address] Dr. Garfield Nelson MANUAL DIFF REQ NO Normal [facility] Comment on above: Performed By: #### C SUITE #### [facility] [address] [place] [address] Dr. Garfield Nelson MCH (RBC) [Entitic mass] 28.3 pg Normal 26.7-34.0 [facility] Comment on above: Performed By: #### C SUITE #### [facility] [address] [place] [address] Dr. Garfield Nelson MCHC (RBC) [Mass/Vol] 31.3 g/dL Normal 29.9-35.2 [facility] Comment on above: Performed By: #### C SUITE #### [facility] [address] [place] [address] Dr. Garfield Nelson MCV (RBC) [Entitic vol] 90.6 fL Normal 81.0-99.0 [facility] Comment on above: Performed By: #### C SUITE #### [facility] [address] [address] [address] Garfield Nelson MONO # 1.0 103/ul Critically high 0.3-0.8 [facility] Comment on above: Performed By: #### C SUITE #### [facility] [address] [address] [address] Garfield Nelson Monocytes/100 WBC (Bld) 13.9 % Critically high 1.7-12.0 [facility] Comment on above: Performed By: #### C SUITE #### [facility] [address] [place] [address] Dr. Garfield Nelson NEUT # 4.0 103/ul Normal 1.4-6.5 [facility] Comment on above: Performed By: #### C SUITE #### [facility] [address] [place] [address] Dr. Garfield Nelson Neutrophils/100 WBC (Bld) 54.3 % Normal 43.0-75.0 [facility] Comment on above: Performed By: #### C SUITE #### [facility] [address] [place] [address] Dr. Garfield Nelson Platelet mean volume (Bld) [Entitic vol] 12.3 fL Normal 9.5-13.5 [facility] Comment on above: Performed By: #### C SUITE #### [facility] [address] [place] [address] Dr. Garfield Nelson PLT 256 103/ul Normal 150-450 [facility] Comment on above: Performed By: #### C SUITE #### [facility] [address] [place] [address] Dr. Garfield Nelson RBC 4.66 106/ul Normal 4.20-5.40 [facility] Comment on above: Performed By: #### C SUITE #### [facility] [address] [place] [address] Dr. Garfield Nelson WBC 7.4 103/ul Normal 4.0-11.0 [facility] Comment on above: Performed By: #### C SUITE #### [facility] [address] [place] [address] Dr. Garfield Nelson MAGNESIUMon 11-12-2021 Magnesium [Mass/Vol] 2.0 mg/dL Normal 1.8-2.4 [facility] Comment on above: Performed By: #### DAVID FengS, CMP #### [facility] [address] [place] [address] Dr. Garfield Nelson PHOSPHORUSon 11-12-2021 Phosphate [Mass/Vol] 3.4 mg/dL Normal 2.6-4.7 [facility] Comment on above: Performed By: #### Sekou Dougherty PHOS, CMP #### [facility] [address] [place] [address] Dr. Garfield Nelson PROF 14(COMP METB)on 022 Albumin [Mass/Vol] 3.9 g/dL Normal 3.4-5.0 [facility] Comment on above: Performed By: #### RAKESH Feng, CMP #### [facility] [address] [place] [address] Dr. Garfield Nelson Albumin/Globulin [Mass ratio] 1.0 {ratio} Normal [facility] Comment on above: Performed By: #### DAVID FengS, CMP #### [facility] [address] [place] [address] Dr. Garfield Nelson ALP [Catalytic activity/Vol] 68 U/L Normal 46-116 [facility] Comment on above: Performed By: #### DAVID FengS, CMP #### [facility] [address] [place] [address] Dr. Garfield Nelson ALT [Catalytic activity/Vol] 16 U/L Normal 14-59 [facility] Comment on above: Performed By: #### Sekou Dougherty PHOS, CMP #### [facility] [address] [place] [address] Dr. Garfield Nelson Anion gap [Moles/Vol] 9.7 mmol/L Normal [facility] Comment on above: Performed By: #### Sekou Dougherty PHOS, CMP #### [facility] [address] [place] [address] Dr. Garfield Nelson AST [Catalytic activity/Vol] 17 U/L Normal 15-37 [facility] Comment on above: Performed By: #### RAKESH Feng, CMP #### [facility] [address] [address] [address] Garfield Nelson Bilirubin [Mass/Vol] 0.4 mg/dL Normal 0.2-1.0 [facility] Comment on above: Performed By: #### RAKESH Feng, CMP #### [facility] [address] [address] [address] Garfield Nelson Calcium [Mass/Vol] 9.0 mg/dL Normal 8.5-10.1 [facility] Comment on above: Performed By: #### RAKESH Feng, CMP #### [facility] [address] [place] [address] Dr. Garfield Nelson Chloride [Moles/Vol] 103 mmol/L Normal 98-107 [facility] Comment on above: Performed By: #### RAKESH Feng, CMP #### [facility] [address] [place] [address] Dr. Garfield Nelson CO2 [Moles/Vol] 30.2 mmol/L Normal 21.0-32.0 [facility] Comment on above: Performed By: #### RAKESH Feng, CMP #### [facility] [address] [place] [address] Dr. Garfield Nelson Creatinine [Mass/Vol] 0.92 mg/dL Normal 0.55-1.02 [facility] Comment on above: Performed By: #### RAKESH Feng, CMP #### [facility] [address] [place] [address] Dr. Garfield Nelson EGFR-AF ECUADOREAN >60 Normal >=60 [facility] Comment on above: Performed By: #### RAKESH Feng, CMP #### [facility] [address] [place] [address] Dr. Garfield Nleson EGFR-NON AF ECUADOREAN >60 Normal >=60 [facility] Comment on above: Performed By: #### RAKESH Feng, CMP #### [facility] [address] [address] [address] Garfield Nelson Globulin (S) [Mass/Vol] 3.8 g/dL Normal [facility] Comment on above: Performed By: #### M RAKESH Dougherty, CMP #### [facility] [address] [address] [address] Garfield Nelson Glucose [Mass/Vol] 101 mg/dL Normal 74-106 [facility] Comment on above: Performed By: #### RAKESH Feng, CMP #### [facility] [address] [address] [address] Garfield Nelson Potassium [Moles/Vol] 3.9 mmol/L Normal 3.5-5.1 [facility] Comment on above: Performed By: #### M RAKESH Dougherty, CMP #### [facility] [address] [address] [address] Garfield Nelson Protein [Mass/Vol] 7.7 g/dL Normal 6.4-8.2 [facility] Comment on above: Performed By: #### RAKESH Feng, CMP #### [facility] [address] [address] [address] Garfield Nelson Sodium [Moles/Vol] 139 mmol/L Normal 136-145 [facility] Comment on above: Performed By: #### RAKESH Feng, CMP #### [facility] [address] [place] [address] Dr. Garfield Nelson Urea nitrogen [Mass/Vol] 16.0 mg/dL Normal 7.0-18.0 [facility] Comment on above: Performed By: #### RAKESH Feng, CMP #### [facility] [address] [address] [address] Garfield Nelson Urea nitrogen/Creatinine [Mass ratio] 17.4 mg/mg Normal [facility] Comment on above: Performed By: #### DAVID FengS, CMP #### [facility] [address] [address] [address] Garfiedl Nelson SED RATE [facility] 2021 SED RATE 58 mm/hr Critically high <=30 [facility] Comment on above: Performed By: #### C SUITE #### [facility] [address] [place] [address] Dr. Garfield Nelson UA RANDOM W/MICROSCOPICon BACTERIA NONE SEEN Normal NONE SEEN [facility] Comment on above: Performed By: #### V ITAD #### [facility] [address] [place] [address] Dr. Garfield Nelson Bilirubin Ql (U) Negative Normal NEGATIVE [facility] Comment on above: Performed By: #### V ITAD #### [facility] [address] [place] [address] Dr. Garfield Nelson CAST NONE SEEN Normal NONE SEEN [facility] Comment on above: Performed By: #### V ITAD #### [facility] [address] [place] [address] Dr. Garfield Nelson Clarity (U) CLEAR Normal CLEAR [facility] Comment on above: Performed By: #### V ITAD #### [facility] [address] [place] [address] Dr. Garfield Nelson Color (U) LT. YELLOW Normal YELLOW [facility] Comment on above: Performed By: #### V ITAD #### [facility] [address] [place] [address] Dr. Garfield Nelson Crystals LM Nom (Urine sed) NONE SEEN Normal NONE SEEN [facility] Comment on above: Performed By: #### V ITAD #### [facility] [address] [place] [address] Dr. Garfield Nelson Epithelial cells LM Ql (Urine sed) NONE SEEN Normal NONE SEEN /RARE [facility] Comment on above: Performed By: #### V ITAD #### [facility] [address] [place] [address] Dr. Garfield Nelson Glucose Ql (U) Negative Normal NEGATIVE [facility] Comment on above: Performed By: #### V ITAD #### [facility] [address] [place] [address] Dr. Garfield Nelson Hemoglobin Ql (U) Negative Normal NEGATIVE [facility] Comment on above: Performed By: #### V ITAD #### [facility] [address] [place] [address] Dr. Garfield Nelson Ketones Ql (U) Negative Normal NEGATIVE [facility] Comment on above: Performed By: #### V ITAD #### [facility] [address] [place] [address] Dr. Garfield Nelson LEUKOCYTES Negative Normal NEGATIVE [facility] Comment on above: Performed By: #### V ITAD #### [facility] [address] [place] [address] Dr. Garfield Nelson MUCOUS NONE SEEN Normal NONE SEEN [facility] Comment on above: Performed By: #### V ITAD #### [facility] [address] [place] [address] Dr. Garfield Nelson Nitrite Ql (U) Negative Normal NEGATIVE [facility] Comment on above: Performed By: #### V ITAD #### [facility] [address] [place] [address] Dr. Garfield Nelson pH (U) 6.0 [pH] Normal 5-9 [facility] Comment on above: Performed By: #### V ITAD #### [facility] [address] [place] [address] Dr. Garfield Nelson RBC 0-2 Normal 0-2 [facility] Comment on above: Performed By: #### V ITAD #### [facility] [address] [place] [address] Dr. Garfield Nelson SPEC GRAVITY 1.020 Normal 1.005-<=1.025 [facility] Comment on above: Performed By: #### V ITAD #### [facility] [address] [place] [address] Dr. Garfield Nelson UA PROTEIN Negative Normal NEGATIVE/ TRACE [facility] Comment on above: Performed By: #### V ITAD #### [facility] [address] [place] [address] Dr. Garfield Nelson Urobilinogen Qn (U) 0.2 {Marquise'U}/dL Normal 0.2 - 1. 0 [facility] Comment on above: Performed By: #### V ITAD #### [facility] [address] [address] [address] Garfield Nelson WBC NONE SEEN Normal NONE SEEN [facility] Comment on above: Performed By: #### V ITAD #### [facility] [address] [place] [address] Dr. Garfield Nelson C3 and C4 COMPLEMENTon 08-08 Complement C3, Serum 131 mg/dL Normal 82-167 [facility] Comment on above: Performed By: #### C SUITE #### [facility] [address] [place] [address] Dr. Garfield Nelson Complement C4, Serum 18 mg/dL Normal 12-38 [facility] Comment on above: Performed By: #### C SUITE #### [facility] [address] [place] [address] Dr. Garfield Nelson COMPLEMENT TOTAL (CH50)on Complement, Total (CH50) >60 Normal >41 [facility] Comment on above: Result Comment: Age Male [...] By: #### M G, PHOS, CMP #### [facility] [address] [place] [address] Dr. Garfield Nelson CBC AUTO DIFFon 08-07-2021 BASO # 0.1 103/ul Normal 0.0-0.1 [facility] Comment on above: Performed By: #### V ITAD #### [facility] [address] [place] [address] Dr. Garfield Nelson Basophils/100 WBC (Bld) 0.6 % Normal 0.2-2.0 [facility] Comment on above: Performed By: #### V ITAD #### [facility] [address] [place] [address] Dr. Garfield Nelson EO # 0.1 103/ul Normal 0.0-0.7 [facility] Comment on above: Performed By: #### V ITAD #### [facility] [address] [place] [address] Dr. Garfield Nelson Eosinophils/100 WBC (Bld) 1.1 % Normal 0.9-7.0 [facility] Comment on above: Performed By: #### V ITAD #### [facility] [address] [place] [address] Dr. Garfield Nelson Erythrocyte distribution width (RBC) [Ratio] 14.5 % Normal 11.0-15.0 [facility] Comment on above: Performed By: #### V ITAD #### [facility] [address] [place] [address] Dr. Garfield Nelson Hematocrit (Bld) [Volume fraction] 40.6 % Normal 36.0-48.0 [facility] Comment on above: Performed By: #### V ITAD #### [facility] [address] [place] [address] Dr. Garfield Nelson Hemoglobin (Bld) [Mass/Vol] 12.8 g/dL Normal 12.0-16.0 [facility] Comment on above: Performed By: #### V ITAD #### [facility] [address] [place] [address] Dr. Garfield Nelson IG # 0.02 10e3/ul Normal 0.00-0.03 [facility] Comment on above: Performed By: #### V ITAD #### [facility] [address] [place] [address] Dr. Garfield Nelson IG % 0.2 % Normal 0.0-0.5 [facility] Comment on above: Performed By: #### V ITAD #### [facility] [address] [place] [address] Dr. Garfield Nelson LYMPH # 1.7 103/ul Normal 1.2-3.8 [facility] Comment on above: Performed By: #### V ITAD #### [facility] [address] [place] [address] Dr. Garfield Nelson Lymphocytes/100 WBC (Bld) 20.0 % Critically low 20.5-60.0 [facility] Comment on above: Performed By: #### V ITAD #### [facility] [address] [place] [address] Dr. Garfield Nelson MANUAL DIFF REQ NO Normal [facility] Comment on above: Performed By: #### V ITAD #### [facility] [address] [place] [address] Dr. Garfield Nelson MCH (RBC) [Entitic mass] 28.4 pg Normal 26.7-34.0 [facility] Comment on above: Performed By: #### V ITAD #### [facility] [address] [place] [address] Dr. Garfield Nelson MCHC (RBC) [Mass/Vol] 31.5 g/dL Normal 29.9-35.2 [facility] Comment on above: Performed By: #### V ITAD #### [facility] [address] [place] [address] Dr. Garfield Nelson MCV (RBC) [Entitic vol] 90.0 fL Normal 81.0-99.0 [facility] Comment on above: Performed By: #### V ITAD #### [facility] [address] [place] [address] Dr. Garfield Nelson MONO # 0.9 103/ul Critically high 0.3-0.8 [facility] Comment on above: Performed By: #### V ITAD #### [facility] [address] [place] [address] Dr. Garfield Nelson Monocytes/100 WBC (Bld) 10.9 % Normal 1.7-12.0 [facility] Comment on above: Performed By: #### V ITAD #### [facility] [address] [place] [address] Dr. Garfield Nelson NEUT # 5.7 103/ul Normal 1.4-6.5 [facility] Comment on above: Performed By: #### V ITAD #### [facility] [address] [place] [address] Dr. Garfield Nelson Neutrophils/100 WBC (Bld) 67.2 % Normal 43.0-75.0 [facility] Comment on above: Performed By: #### V ITAD #### [facility] [address] [place] [address] Dr. Garfield Nelson Platelet mean volume (Bld) [Entitic vol] 12.1 fL Normal 9.5-13.5 [facility] Comment on above: Performed By: #### V ITAD #### [facility] [address] [place] [address] Dr. Garfield Nelson PLT 249 103/ul Normal 150-450 [facility] Comment on above: Performed By: #### V ITAD #### [facility] [address] [place] [address] Dr. Garfield Nelson RBC 4.51 106/ul Normal 4.20-5.40 [facility] Comment on above: Performed By: #### V ITAD #### [facility] [address] [place] [address] Dr. Garfield Nelson WBC 8.5 103/ul Normal 4.0-11.0 [facility] Comment on above: Performed By: #### V ITAD #### [facility] [address] [place] [address] Dr. Garfield Nelson MAGNESIUMon 08-07-2021 Magnesium [Mass/Vol] 2.0 mg/dL Normal 1.8-2.4 [facility] Comment on above: Performed By: #### C SUITE #### [facility] [address] [place] [address] Dr. Garfield Nelson PHOSPHORUSon 08-07-2021 Phosphate [Mass/Vol] 3.6 mg/dL Normal 2.6-4.7 [facility] Comment on above: Performed By: #### C SUITE #### [facility] [address] [place] [address] Dr. Garfield Nelson PROF 14(COMP METB)on 022 Albumin [Mass/Vol] 3.8 g/dL Normal 3.4-5.0 [facility] Comment on above: Performed By: #### C SUITE #### [facility] [address] [place] [address] Dr. Garfield Nelson Albumin/Globulin [Mass ratio] 0.9 {ratio} Normal [facility] Comment on above: Performed By: #### C SUITE #### [facility] [address] [place] [address] Dr. Garfield Nelson ALP [Catalytic activity/Vol] 73 U/L Normal 46-116 [facility] Comment on above: Performed By: #### C SUITE #### [facility] [address] [place] [address] Dr. Garfield Nelson ALT [Catalytic activity/Vol] 24 U/L Normal 14-59 [facility] Comment on above: Performed By: #### C SUITE #### [facility] [address] [place] [address] Dr. Garfield Nelson Anion gap [Moles/Vol] 12.0 mmol/L Normal [facility] Comment on above: Performed By: #### C SUITE #### [facility] [address] [place] [address] Dr. Garfield Nelson AST [Catalytic activity/Vol] 22 U/L Normal 15-37 [facility] Comment on above: Performed By: #### C SUITE #### [facility] [address] [place] [address] Dr. Garfield Nelson Bilirubin [Mass/Vol] 0.4 mg/dL Normal 0.2-1.0 [facility] Comment on above: Performed By: #### C SUITE #### [facility] [address] [place] [address] Dr. Garfield Nelson Calcium [Mass/Vol] 8.9 mg/dL Normal 8.5-10.1 [facility] Comment on above: Performed By: #### C SUITE #### [facility] [address] [place] [address] Dr. Garfield Nelson Chloride [Moles/Vol] 102 mmol/L Normal 98-107 [facility] Comment on above: Performed By: #### C SUITE #### [facility] [address] [place] [address] Dr. Garfield Nelson CO2 [Moles/Vol] 27.2 mmol/L Normal 21.0-32.0 [facility] Comment on above: Performed By: #### C SUITE #### [facility] [address] [place] [address] Dr. Garfield Nelson Creatinine [Mass/Vol] 0.86 mg/dL Normal 0.55-1.02 [facility] Comment on above: Performed By: #### C SUITE #### [facility] [address] [place] [address] Dr. Garfield Nelson EGFR-AF ECUADOREAN >60 Normal >=60 [facility] Comment on above: Performed By: #### C SUITE #### [facility] [address] [place] [address] Dr. Garfield Nelson EGFR-NON AF ECUADOREAN >60 Normal >=60 [facility] Comment on above: Performed By: #### C SUITE #### [facility] [address] [place] [address] Dr. Garfield Nelson Globulin (S) [Mass/Vol] 4.4 g/dL Normal [facility] Comment on above: Performed By: #### C SUITE #### [facility] [address] [place] [address] Dr. Garfield Nelson Glucose [Mass/Vol] 108 mg/dL Critically high 74-106 [facility] Comment on above: Performed By: #### C SUITE #### [facility] [address] [place] [address] Dr. Garfield Nelson Potassium [Moles/Vol] 4.2 mmol/L Normal 3.5-5.1 [facility] Comment on above: Performed By: #### C SUITE #### [facility] [address] [place] [address] Dr. Garfield Nelson Protein [Mass/Vol] 8.2 g/dL Normal 6.4-8.2 [facility] Comment on above: Performed By: #### C SUITE #### [facility] [address] [place] [address] Dr. Garfield Nelson Sodium [Moles/Vol] 137 mmol/L Normal 136-145 [facility] Comment on above: Performed By: #### C SUITE #### [facility] [address] [place] [address] Dr. Garfield Nelson Urea nitrogen [Mass/Vol] 15.0 mg/dL Normal 7.0-18.0 [facility] Comment on above: Performed By: #### C SUITE #### [facility] [address] [place] [address] Dr. Garfield Nelson Urea nitrogen/Creatinine [Mass ratio] 17.4 mg/mg Normal [facility] Comment on above: Performed By: #### C SUITE #### [facility] [address] [place] [address] Dr. Garfield Nelson [facility] SED RATE 11 mm/hr Normal <=30 [facility] Comment on above: Performed By: #### C SUITE #### [facility] [address] [place] [address] Dr. Garfield Nelson UA RANDOM W/MICROSCOPICon BACTERIA NONE SEEN Normal NONE SEEN [facility] Comment on above: Performed By: #### U AMIC #### [facility] [address] [place] [address] Dr. Garfield Nelson Bilirubin Ql (U) Negative Normal NEGATIVE [facility] Comment on above: Performed By: #### U AMIC #### [facility] [address] [place] [address] Dr. Garfield Nelson CAST NONE SEEN Normal NONE SEEN [facility] Comment on above: Performed By: #### U AMIC #### [facility] [address] [place] [address] Dr. Garfield Nelson Clarity (U) CLEAR Normal CLEAR [facility] Comment on above: Performed By: #### U AMIC #### [facility] [address] [place] [address] Dr. Garfield Nelson Color (U) LT. YELLOW Normal YELLOW [facility] Comment on above: Performed By: #### U AMIC #### [facility] [address] [place] [address] Dr. Garfield Nelson Crystals LM Nom (Urine sed) NONE SEEN Normal NONE SEEN [facility] Comment on above: Performed By: #### U AMIC #### [facility] [address] [address] [address] Garfield Nelson Epithelial cells LM Ql (Urine sed) FEW Abnormal NONE SEEN /RARE [facility] Comment on above: Performed By: #### U AMIC #### [facility] [address] [address] [address] Garfield Nelson Glucose Ql (U) Negative Normal NEGATIVE [facility] Comment on above: Performed By: #### U AMIC #### [facility] [address] [address] [address] Garfield Nelson Hemoglobin Ql (U) Negative Normal NEGATIVE [facility] Comment on above: Performed By: #### U AMIC #### [facility] [address] [address] [address] Garfield Nelson Ketones Ql (U) Negative Normal NEGATIVE [facility] Comment on above: Performed By: #### U AMIC #### [facility] [address] [address] [address] Garfield Nelson LEUKOCYTES Negative Normal NEGATIVE [facility] Comment on above: Performed By: #### U AMIC #### [facility] [address] [address] [address] Garfield Nelson MUCOUS NONE SEEN Normal NONE SEEN [facility] Comment on above: Performed By: #### U AMIC #### [facility] [address] [address] [address] Garfield Nelson Nitrite Ql (U) Negative Normal NEGATIVE [facility] Comment on above: Performed By: #### U AMIC #### [facility] [address] [address] [address] Garfield Nelson pH (U) 6.0 [pH] Normal 5-9 [facility] Comment on above: Performed By: #### U AMIC #### [facility] [address] [address] [address] Garfield Nelson RBC NONE SEEN Abnormal 0-2 [facility] Comment on above: Performed By: #### U AMIC #### [facility] [address] [address] [address] Garfield Nelson SPEC GRAVITY 1.010 Normal 1.005-<=1.025 [facility] Comment on above: Performed By: #### U AMIC #### [facility] [address] [address] [address] Garfield Nelson UA PROTEIN Negative Normal NEGATIVE/ TRACE [facility] Comment on above: Performed By: #### U AMIC #### [facility] [address] [address] [address] Garfield Nelson Urobilinogen Qn (U) 0.2 {Marquise'U}/dL Normal 0.2 - 1. 0 [facility] Comment on above: Performed By: #### U AMIC #### [facility] [address] [address] [address] Garfield Nelson WBC NONE SEEN Normal NONE SEEN [facility] Comment on above: Performed By: #### U AMIC #### [facility] [address] [address] [address] Garfield Nelson Vital Signs Date Time Vital Sign Value Performing Clinician Facility 01-04-2024 11:13-0500 Body height 157.[address] Work Phone: [facility] 01-04-2024 11:13-0500 Body mass index (BMI) [Ratio] 19.02 kg/m2 [address] Work Phone: [facility] 01-04-2024 11:13-0500 Body weight 47.[address] Work Phone: [facility] 01-04-2024 11:13-0500 Diastolic blood pressure 78 mm[Hg] [address] Work Phone: [facility] 01-04-2024 11:13-0500 Systolic blood pressure 110 mm[Hg] [address] Work Phone: [facility] 12-18-2022 11:00-0400 Body height 157.48 cm Rich Ball Other [address] Other 12-18-2022 11:00-0400 Body mass index (BMI) [Ratio] 19.02 kg/m2 Rich Ball Other [address] Other 12-18-2022 11:00-0400 Body weight 47.17 kg Rich Ball Other [address] Other 12-18-2022 11:00-0400 Diastolic blood pressure 78 mm[Hg] Rich Ball Other [address] Other 12-18-2022 11:00-0400 Respiratory rate 12 /min Rich Ball Other [address] Other 12-18-2022 11:00-0400 Systolic blood pressure 117 mm[Hg] Rich Ball Other [address] Other Encounters Encounter Date Encounter Type Care Provider Facility Start: 01-04-2024 End: 01-04-[address] Work Phone: [facility] Start: 01-04-2024 End: 01-13-[address] Work Phone: [facility] Start: 01-04-2024 End: 01-13-2024 Clinisync Result Encounter [address] Work Phone: [facility] External Department Unsolicited Start: 01-04-2024 End: 01-04-2024 Patient encounter procedure [address] Work Phone: [facility] Healthcare Start: 01-04-2024 End: 01-04-2024 Periodic preventive med est patient 40-[address]yrs [address] Work Phone: [facility] Comment on above: Postmenopausal state ; Well woman exam with routine gynecological exam Start: 01-04-2024 End: 01-04-2024 ambulatory STEPHANIE KEITH Not Available Start: 12-18-2022 End: 12-18-2022 ambulatory Rich Ball Other [address] Other Start: 12-18-2022 Encounter for genera l adult medical examination without abnormal findings Rich Garcia [facility] Start: 12-18-2022 Periodic preventive med est patient 40-64yrs Rich Garcia [facility] Start: 12-05-2022 End: 12-05-2022 ambulatory Rich Garcia Other [address] Other Start: 12-05-2022 Nursing evaluation o f patient and report Rich Garcia [facility] Start: 05-12-2022 End: 05-13-[address] NIKI BOWMAN Facility:[facility] Start: 04-11-2022 End: 04-11-2022 ambulatory Rich Garcia Other [address] Other Start: 04-11-2022 Office outpatient vi sit 15 minutes Rich Garcia [facility] Start: 03-11-2022 End: 03-11-2022 ambulatory Rich Garcia Other [address] Other Start: 03-11-2022 Office outpatient vi sit 15 minutes Rich Jose [facility] Start: 02-11-2022 End: 02-12-[address] DOCTOR SMITH Facility:[facility] Start: 01-02-2022 End: 01-02-2022 ambulatory Patricia Ornelas Facility:[facility] Start: 01-02-2022 End: 01-02-2022 ambulatory DO Rich Jose Work Phone: [facility] Work Phone: Start: 01-02-2022 End: 01-02-2022 Patient encounter procedure DO Rich Jose Work Phone: [facility] Start: 01-02-2022 ambulatory Facility:9 [id number] Start: 12-19-2021 Encounter for genera l adult medical examination without abnormal findings DR RICH GARCIA [facility] Start: 12-17-2021 End: 12-18-[address] RICH GARCIA Facility:[facility] Start: 12-17-2021 End: 12-18-2021 Encounter for general adult medical examination without abnormal findings DR RICH GARCIA Facility:[facility] Start: 12-16-2021 End: 12-16-[address] JUDITH MARTINEZ . Facility:[facility] Start: 12-16-2021 Gynecological examin ation normal Rich Garcia Other [facility] Other Start: 12-13-2021 Adult health examination Douglas Garcia Other [facility] Other Start: 11-14-2021 End: 11-15-[address] [...] Screening for malignant neoplasm of breast Rich Gracia Other Screening for malign ant neoplasm of breast Rich Garcia Other Screening for malign ant neoplasm of colon Rich Garcia Other End: 12-04-2020 Screening for osteoporosis Rich Garcia Other Plan of Treatment Date Care Activity Detail Author Start: 01-03-2029 Screening for malignant neoplasm of cervix [facility] Start: 01-10-2025 End: 01-10-2025 Patient encounter procedure 01/10/2025 11:00 AM EST Office Visit [facility] [address] [place] [address] Stephanie Keith PA [address] [place], [place] [id number] [facility] Start: 12-17-2024 Screening for malignant neoplasm of breast Mammogram [facility] Start: 01-04-2024 End: 01-04-2024 Patient encounter procedure 01/04/2024 11:00 AM EST Office Visit [facility] [address] [address] Stephanie Keith PA [address] [place] [address] Arrived [facility] Comment on above: Arrived Start: 11-01-2023 Influenza vaccination Influenza Vacc ine (#1) [facility] Start: 12-01-1995 Screening for malignant neoplasm of cervix [facility] Start: 1986 Screening for malignant neoplasm of cervix Pap Smear [facility] Start: 1965 Screening for malignant neoplasm of colon [facility] THIN PREP TIS PAP AN D HR HPV DNA THIN PREP TIS PAP AND HR HPV DNA Pathology and Cytology Routine Well woman exam with routine gynecological exam Ordered: 01/04/2024 [facility] Work Phone: Comment on above: Ordered: 01/04/2024 Immunizations Immunization Date Immunization Notes Care Provider Fa naya 12-28-2023 influenza virus vaccine, unspecified formulation [address] Work Phone: [facility] 12-05-2022 influenza, injectabl e, quadrivalent, preservative free Rich Garcia Other [address] Other 12-13-2021 influenza virus vaccine, split virus (incl. purified surface antigen) Rich Garcia Other [address] Other 12-12-2020 COVID-19 mRNA, Comirnaty (REBIScan) DO Rich Garcia Work Phone: [facility] 12-05-2020 influenza virus vaccine, split virus (incl. purified surface antigen) Rich Garcia Other [address] Other 05-04-2020 COVID-19 mRNA, Comirnaty (Pfizer) DO Rich Garcia Work Phone: [facility] 04-13-2020 COVID-19 mRNA, Comirnaty (Pfizer) DO Rich Garcia Work Phone: [facility] 12-08-2019 influenza virus vaccine, split virus (incl. purified surface antigen) Rich Jose Other [address] Other 01-05-2019 pneumococcal polysaccharide vaccine, 23 valent Rich Garcia Other [address] Other 12-03-2018 influenza virus vaccine, split virus (incl. purified surface antigen) Rich Garcia Other [address] Other 12-15-2017 influenza virus vaccine, split virus (incl. purified surface antigen) Rich Jose Other [address] Other 12-10-2016 tetanus and diphther ia toxoids, adsorbed, preservative free, for adult use (5 Lf of tetanus toxoid and 2 Lf of diphtheria toxoid) Rich Garcia Other [address] Other 12-12-2015 tetanus and diphther ia toxoids, adsorbed, preservative free, for adult use (5 Lf of tetanus toxoid and 2 Lf of diphtheria toxoid) Rich Garcia Other [address] Other 11-15-2015 pneumococcal conjuga te vaccine, 13 valent Rich Garcia Other [address] Other 12-19-2014 tetanus and diphther ia toxoids, adsorbed, preservative free, for adult use (5 Lf of tetanus toxoid and 2 Lf of diphtheria toxoid) Rich Garcia Other [address] Other 12-14-2012 tetanus and diphther ia toxoids, adsorbed, preservative free, for adult use (5 Lf of tetanus toxoid and 2 Lf of diphtheria toxoid) Rich Garcia Other [address] Other Payers Date Payer Category Payer Self-pay [id number] 2021 Unknown [id number] 2021 Private Health Insurance [employer] [id number] 1965 Unknown [id number]. [id number] 1965 Unknown [id number] [id number]. 2.593 1965 Unknown [id number] [id number]. 2.593 1965 Unknown [id number] [id number]. 2.593 1965 Unknown [id number] 2.16840.1.243130.3.579. 2.593 1965 Unknown [id number] [id number]. 2.593 1965 Unknown [id number] [id number]. 2.593 1965 Unknown [id number] 2.16.840.1.024002.3.579. 2.593 1965 Unknown [id number] [id number]. 2.1259 1959 Unknown [id number] [id number] Unknown [id number] [id number]. 2.531 Social History Date Type Detail Facility Start: 01-28-2021 Tobacco smoking status [facility] Never smoked tobacco (finding) [facility] Start: 1965 Sex Assigned At Female F [facility] Sex Assigned At [address] Other Tobacco smoking status [facility] Tobacco smoking consumption unknown [facility] Start: 1965 Sex assigned at Not [...] nursing note reviewed. Exam conducted with a english as a second language instructor present. Vitals: There is no height or [...] of: JAD Granados documented in this encounter [facility] Evaluation note 12-18-2022 Note Date & Type [...] patient on monthly SBE and yearly mammograms. [address] Other Evaluation note 04-11-2022 Note Date & [...] of symptoms to lungs, SOB or CP. [address] Other Evaluation note 03-11-2022 Note Date & [...] treatment, empiric treatment of any infection necessary [address] Other Evaluation note Note Date & Type Note Facility Evaluation note No assessment information [facility] Work Phone: Evaluation note Note Date & Type Note Facility Evaluation note No Information [facility] [employer] Other Evaluation note Note Date & Type [...] History HYSTERECTOMY Hospitalization History see surgical history [address] Other Chief Complaint and Reason for Visit [...] Rich Garcia DO Primary Care Provider Active Board Operator Relationship Specialty Start Date End Date Rich Garcia MD [address] [place] [address] PCP - General Internal Medicine 12/29/22 Board Operator Relationship Specialty Start Date End Date Rich Garcia MD [address] [place] [address] PCP - General Internal Medicine 12/29/22 Board Operator Relationship Specialty Start Date End Date Rich Garcia MD [address] [place] [address] PCP - General Internal Medicine 12/29/22 Goals (unrecognized section and content) Goals may be documented in a n alternate sectionNo InformationNo InformationNo InformationNo Information INFORMATION SOURCE (unrecogn ized section and content) DATE CREATED AUTHOR 04/05/2022 [facility] DATE CREATED AUTHOR AUTHOR'S ORGANIZ ATION 04/05/2022 [facility] DATE CREATED AUTHOR AUTHOR'S ORGANIZ ATION 05/19/2022 [facility] DATE CREATED AUTHOR AUTHOR'S ORGANIZ ATION 01/05/2024 [facility] EPIC REASON FOR VISIT (unrecogniz [...] BE BASED ON THE PRIMARY CLINICAL RECORDS. [employer] provides no warranty or guarantee of the accuracy or completeness of information in this document.
== END 2024-12-19 13:06 | disposition home or self-care (01) ==
LOC: MAMMO 13:06
PROVIDERS: Visit Provider Physician Assistant
DX: Z12.31 Encounter for screening mammogram for malignant neoplasm of breast (principal); Z80.3 Family history of malignant neoplasm of breast
CPT/HCPCS: 77063; 77067

== ENCOUNTER 2025-01-10 19:11 | Outpatient (REF) | payer OTHER, SELFPAY ==
--- OUTSIDE RECORDS SUMMARY | 2025-01-09 09:31 | XMS_ITS | Continuity of Care Document ---
Author Organization [facility] Address [address] [place] [address] Phone Care Team Providers Care Mechanical Adjuster Name Role Phone Rich Garcia DO Primary Care Provider [phone] Rich Garcia DO Attending Provider Care Teams Patient Care Team Team Status: Active Member Role/Relationship Status Dates Rich Garcia DO Primary Care Provider Active Patient Care Team Team Status: Inactive Member Role/Relationship Status Dates Rich Garcia DO Primary Care Provider Active Start: January 09, 2025 End: January 09enolu Garcia DOAttending ProviderActiveStart: January 09, 2025 End: January 09, 2025 Chief Complaint and Reason for Visit Chief Complaint Admit Date Wellness January 09, 2025 1:49pm Reason for Visit Admit Date GERD (gastroesophageal reflux disease) N ovember 2024 1:49pm Osteoporosis January 09, 2025 1:49pm Raynauds phenomenon January 09, 2025 1:49pm Screening mammogram for breast cancer No vember 2024 1:49pm Systemic sclerosis January 09, 2025 1:49pm Wellness examination January 09, 2025 1:49pm Allergies, Adverse Reactions, Alerts Allergen Type Severity Reaction Last Updated Verified Status penicillin V Allergy Unknown Unknown Reaction Novemb er 2024 1:53pm Yes Active Penicillins Allergy Unknown Unknown Reactio n, Comment:Rash January 09, 2025 1:53pm Yes Active Social History Smoking Status Status Start Date End Date Date of Observa tion Never smoked tobacco (finding) December 18, 2022 10:55am Observation Status Observation Response Date of Response Legal Sex Female (finding) [facility] 1965 Family History Relationship Condition Age at Onset Recorded Date/T sam mother Vascular disorder Unknown Diabetes mellitusUnknownHeart diseaseUnknownfatherIrritable bowel syndrome Unknown Problems Active Problems Problem Diagnosis/Recorded Date Onset Date Stat Systemic sclerosis December 17, 2023 9:31pm Unknown Active Screening mammogram for breast cancer December 16 9:32pm Unknown Active Osteoporosis December 17, 2023 9:31pm Unknown Ac tive Wellness examination December 17, 2023 9:29pm Unknown Active Raynauds phenomenon December 17, 2023 9:31pm Unknown Active Screening for colorectal cancer January 28, 2021 1: 21pm Unknown Active GERD (gastroesophageal reflux disease) December 16 9:32pm Unknown Active Medications Medication Status Dose Units Route Directions Qty Days Refills S tart Date Stop Date End Date Reason(s) Instructions Adherence Nifedipine 30 mg Tablet Extended Release Active 30 MG PO Daily January 28, 2021 12:00amComplies with drug therapyCalcium Carbonate-Vitamin D3 600 mg-5 mcg (200 unit) TnsdgpZgypqn3SHYKACamny dailyU[facility] 2020 12:00amComplies with drug therapyMethotrexate Sodium 2.5 mg tabletActive2.5MGPO DailyUofl [facility] - [facility] 2020 12:00amComplies with drug therapyFolic Acid 1 mg tablet Ovappq2NDZEUwbuaOlhpbjno 2020 12:00amComplies with drug therapyIbandronate 3 mg/3 mL FaqcwjouQcjsiimwgxtc1YKORCBTFV 3 MONTHSUofl [facility] 2020 12:00am December 21, 2023 12:36pmAzithromycin 250 mg swtdwxLqeshyptfnpq518ZUGLWq Jxpkuswh241Vwyjeid 2024 3:27pmU[facility] 2024 1:53pmDenosumab (Prolia) 60 mg/mL mpttmovZisyvf45WDJJIWJBPVKQM [facility] 2023 11:00pmComplies with drug therapyAzithromycin 250 mg zyuopjUedlelsptumy946OBKWGc Ymotdkzw011 December 20, 2023 11:00pmJanuary 2024 3:28pm Immunizations Immunization Event Date Not Given Reason Dose Number Reservations Agent Lot Number Reason(s) Given Vaccine Information Statement (VIS) Detail Administration Location COVID-19 mRNA, Comirnaty (Pfizer) April 13, 2020 COVID-19 mRNA, Comirnaty (Pfizer)May 04OVID-19 mRNA, Comirnaty (Pfizer)December 12, 2020influenza, unspecified formulationOctober 2017 influenza, unspecified formulationOctober 2018influenza, unspecified formulationOctober 2019influenza, unspecified formulationOctober 2020 influenza, unspecified formulationOctober neumococcal Conjugate Vaccine, 13 valentSeptember 2015Pneumococcal Polysacc. Vaccine, 23 valent January 05, 2019Quadrivalent InfluenzaOctober 2022Tetanus, Diphtheria adult, 5 Lf pres free absOctober , 2012Tetanus, Diphtheria adult, 5 Lf pres free absOctober , 2014Tetanus, Diphtheria adult, 5 Lf pres free absOctober 2015Tetanus, Diphtheria adult, 5 Lf pres free absOctober 2016 Vital Signs Vital Reading Result Reference Range Collection Date/Time Height 62 [in_i] January 09, 2025 1:09dtPtsqrp99.19 kgNov2024 1:54pmHeart Rate91 /prq35-639Auhxfcvj 10th, 2025 1:54pmRespiratory rate12 /dtd61-13Uqotihdo 10th, 2025 1:54pmBP Slvcfxzx267 mm[Hg]100-140Nov2024 1:54pmBP Yftpkqoig36 mm[Hg]60-100Nov2024 1:54pmBMI (Body Mass Index)19.4 kg/c4Vaszrwwz2024 1:54pm Advance Directives Advance Directive Response Recorded Date/ Time Advance Directives No December 10:15am Insurance Providers Guarantor Madeline Ashley Address [address] [place] [address] [facility] [address]Sxrzefi Info.Home Phone: Coverage Status Update:2024 Payer Group Member ID Coverage Type Subscriber Relationship to Subscriber Effective Date Expiration Date Regular Insurance [address] [place] [address] Work Phone: Id: [id number] Green Chana Id: [id number] [address] [place] [address] Home Phone: Encounters Encounter Location(s) Arrival/Admit Date Discharge/Departure Date Discharge/Departure Disposition Provider(s) Departed Physician/ Provider Office Visit -JOSE Garcia [facility] January 09, 2025 1:49pm January 09, 2025 2:29pm Discharged to home care or self care (routine discharge) Rich Garcia , DO Recent Diagnosis Onset Date Admit Date GERD (gastroesophageal reflux disease) Unknown January 09, 2025 1:49pm Osteoporosis Unknown January 09, 1:49pm Raynauds phenomenon Unknown December 1:49pm Screening mammogram for breast cancer Unknown January 09, 2025 1:49pm Systemic sclerosis Unknown December 1:49pm Wellness examination Unknown January 092024 1:49pm Assessments Diagnosis Onset Date Resolution Status Admit Date GERD (gastroesophageal reflux disease) acuteNov2024 1:49pmOsteoporosisacuteNov2024 1:49pm Raynauds phenomenonacuteNov2024 1:49pmScreening mammogram for breast canceracuteJanuary 09, 2025 1:49pmSystemic sclerosisacuteNov2024 1:49pmWellness examinationacuteNov2024 1:49pm Plan of Treatment Author Rich Garcia [facility] HospitalAuthoredNov[facility]24 2:27pmI have instructed this patient on the recommended lifestyle changes, which includes a low fat, high fiber diet along with a regular exercise routine. I have also reviewed the recommended age-appropriate preventive testing for this patient. I have also reviewed the recommended vaccines for their age and risk factors. Stable w/ treatment. f/u Rheumatology Instructed to continue calcium and vitamin D supplements. Instructed on weight bearing exercises. Monitor w/ DEXA qoy. Continue Prolia without interruption Instructed to avoid cold exposure. Instructed to inspect hands daily for ulcerations She is purchasing heated gloves Continue Procardia without interruption I have instructed this patient to avoid lying flat after eating.?? I have also recommended to avoid eating 2 hours prior to bedtime.?? They were also informed that smaller, frequent meals may be better tolerated. I have discussed additional treatment options for persistent symptoms, which includes: weight loss, H2 blockers and PPI. I have also instructed them to notify the office with any pain or difficulty swallowing. I have instructed this patient on monthly SBE and recommended yearly mammograms. Future Tests Future scheduled test information is unavailable Pending Tests Pending diagnostic test information is unavailable Future Visits Future appointment information is unavailable Future Procedures Procedure Name Ordered Date Scheduled Date A1C with Estimated Average Glu January 09 2:20pm GlucoseNov2024 2:20pmLipid PanelNov2024 2:20pm Future Medications Future medication information is unavailable Patient Instructions Patient instructions are unavailable
--- OUTSIDE RECORDS SUMMARY | 2025-01-10 11:00 | XMS_ITS | Encounter Summary ---
Author Organization [facility] Address [address] [facility] [place] [address] Care Team Providers Care Prn Occupational Therapist Name Role Phone Rich Garcia DO Primary Care Provider [phone] Reason for Visit * ReasonCommentsWell Women Visit Encounter Details DateTypeDepartmentCare Team (Latest Contact Info)Ranryszdakj31/11/2025 11:00 AM ESTOffice Visit [facility] [address] [place] [address] Stephanie Reed PA [address] [place], [facility]11 Well woman exam with routine gynecological exam; Breast cancer screening by mammogram; Postmenopausal state Social History Tobacco UseTypesPacks/DayYears UsedDateSmoking Tobacco: Never Assessed CommentsNoSex and Gender InformationValueDate RecordedSex Assigned at BirthNot on fileLegal NuoKjxnoe75/15/2023 7:21 PM EDTGender IdentityNot on fileSexual OrientationNot on filedocumented as of this encounter Last Filed Vital Signs Vital SignReadingTime TakenCommentsBlood Kxcyjbwf008/80103/12/2024 11:16 AM EST Pulse--Temperature--Respiratory Rate--Oxygen Saturation--Inhaled Oxygen Concentration--Gwrlfk67.4 kg (106 lb 12.8 oz)01/10/2025 11:16 AM [...] nursing note reviewed. Exam conducted with a statistical engineer present. Vitals: Estimated body mass index is [...] them. Patient can also view results via [employer]. I reinforced importance of condom use for [...] Plan of Treatment DateTypeDepartmentCare Team (Latest Contact Info)Fcynblfijkf28/18/2026 11:00 AM ESTProcedure Visit [facility] [address] [place] [address] Stephanie Reed PA [address] [place] [address] NameTypePriorityAssociated DiagnosesOrder ScheduleDEXA bone densityImaging Routine Postmenopausal [...] Date Rich Garcia DO PCP - GeneralInternal Ehphnjho22/30/23documented as of this encounter
--- OUTSIDE RECORDS SUMMARY | 2025-01-10 19:15 | XMS_ITS | CCD ---
Author Organization [facility] Care Team Providers Care Vision Teacher Name Role Phone DO Rich Segura Primary Care Provider THERESE Ornelas Attending Provider [...] Unavailable MISC, DR DANIELS Consulting Unavailable Rich Segura MD Primary Care Provider STEPHANIE REED Attending Unavailable Rich Segura DO Primary Care Provider Allergies Allergy ClassificationReported Allergen(s)Allergy TypeDate of OnsetReaction(s) Facility (1 source)PenicillinsDrug allergy (disorder)42-23-9828[facility]aM[facility] (4 sources)Penicillin VDrug AllergyUnkParkland Health Center [facility] Other (1 source)PenicillinsDrug allergy (disorder)25-65-3685FirUniversity Hospitals St. [facility] Repository (1 source)Allergies ReconciledPropensity to adverse reactionsChildren's Mercy Hospital [facility] Other (2 sources)Substance with penicillin structure and antibacterial mechanism of action (substance)Drug allergyComment:[facility] Other (1 source)patient allergy list reviewed by nurse or physiciaPropensity to adverse -[phone]:[facility] Other (4 sources)penicillAMINEDrug Mchgcrk03-84-2312SgagAFIA Healthcare Medications Current Medications MedicationDrug Class(es)DatesSig (Normalized)Sig (Original)calcium carbonate 600 mg oral capsule (4 sources)take 1 tablet by mouth twice daily at mealtimeCalcium Carbonate 600 MG 1 tablet with food Orally Twice a day Activecalcium carbonate 1500 mg / cholecalciferol 200 unt oral tablet (6 sources)Vitamin DStart: 38-50-6627xjdd 1 tablet by mouth twice dailyCalcium Carbonate-Vitamin D3 Active 1 TAB PO Twice daily January 28, 2021 1:00am Calcium Carb-Cholecalciferol (Calcium 600 + D) 600-5 MG-MCG tablet Take by mouth. Active1 ml denosumab 60 mg/ml prefilled syringe (3 sources)RANK Ligand InhibitorStart: 20-51-1766uexfwlnci (Prolia) 60 MG/ML solution prefilled syringe EVERY 6 MONTHS 12/21/2023 Activefolic acid 1 mg oral tablet (10 sources)Start: 48-48-3400njfu 1 mg by mouth once dailyFolic Acid Active 1 MG PO Daily January 28, 2021 1:00am3 ml ibandronic acid 1 mg/ml injection (5 sources)BisphosphonateStart: 79-65-4585wnlt 3 mg intravenously every three monthsIbandronate Active 3 MG IV EVERY 3 MONTHS January 28, 2021 1:00am Ibandronate Sodium 3 MG/3ML 3 mL Intravenous Activemethotrexate 2.5 mg oral tablet (10 sources)Folate Analog Metabolic InhibitorStart: 32-65-2498owuf 2.5 mg by mouth once dailyMethotrexate Sodium Active 2.5 MG PO Daily January 28, 2021 1:00am24 hr NIFEdipine 30 mg extended release oral tablet (10 sources)Dihydropyridine Calcium Channel BlockerStart: 73-74-7450qbmy 30 mg by mouth once dailyNifedipine Active 30 MG PO Daily January 28, 2021 1:00am take 1 tablet by mouth every twenty-four hoursProcardia XL 30 MG 1 tablet Orally Once a day Active Completed/Discontinued Medications MedicationDrug Class(es)DatesSig (Normalized)Sig (Original)azithromycin 250 mg oral tablet (4 sources)Macrolide AntimicrobialStart: 83-30-5613Eqqdpurposaa 250 MG as directed Orally daily for 5 days Apr, Not-Takingbenzonatate 200 mg oral capsule (4 sources)Non-narcotic AntitussiveStart: 64-06-0302ufrs 1 capsule by mouth every eight hoursBenzonatate 200 MG 1 capsule Orally Three times a day for 10 Mar, Not-Takingdoxycycline hyclate 100 mg oral capsule (4 sources)Tetracycline-class DrugStart: 75-17-2393xfbc 1 capsule by mouth twice dailyDoxycycline Hyclate 100 MG 1 capsule Orally twice daily for 7 days Mar, Not-Takingomeprazole 20 mg delayed release oral capsule (4 sources)Proton Pump InhibitorOmeprazole 20 MG (Prior Auth: Rx Ref#:[id number]) Oral for 90 Not-Taking Problems Active Problems Problem ClassificationProblemDateDocumented DateEpisodic/ChronicAcute bronchitis (1 source)Acute bronchitis due to other specified organismsEpisodicEsophageal disorders (5 sources)Gastroesophageal reflux disease; Translations: [Gastro-esophageal reflux disease without esophagitis]ChronicImmunity disorders (6 sources)Immunosuppression; Translations: [Immunodeficiency, unspecified] ChronicImmunizations and screening for infectious disease (3 sources)Encounter for screening for human papillomavirus (HPV); Translations: [Vaccination given]Onset: 56-10-3059PcwirmmcPdodedfolrjmz mental health disorders (4 sources)Globus sensation; Translations: [Other somatoform disorders]Chronic Osteoporosis (6 sources)Primary osteoporosis; Translations: [Age-related osteoporosis without current pathological fracture]Onset: 92-04-8502JzlbdicEuccs aftercare (1 source)Other jail (current) drug therapy; Translations: [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 THERAPY]Onset: 47-35-1744SyjofbkuSrysi circulatory disease (6 sources)Raynaud's disease; Translations: [Raynaud's syndrome without gangrene]ChronicOther circulatory disease (2 sources)Raynaud's syndrome without gangrene; Translations: [RAYNAUDS SYNDROME WITHOUT GANGRENE]Onset: 04-30-3916NkhxfrpUwtsk gastrointestinal disorders (4 sources)Pharyngeal dysphagia; Translations: [Dysphagia, pharyngeal phase] EpisodicOther gastrointestinal disorders (4 sources)Dysphagia; Translations: [Dysphagia, unspecified]EpisodicOther lower respiratory disease (1 source)Pulmonary fibrosis, unspecified; Translations: [Pulmonary fibrosis, unspecified]Onset: 29-27-0991OsibhgnDchsp screening for suspected conditions (not mental disorders or infectious disease) (10 sources)Patient encounter status; Translations: [Encounter for screening for malignant neoplasm of colon]Onset: 370598-00-4624AhxzzhfwNhphx upper respiratory infections (3 sources)Acute maxillary sinusitis, unspecified; Translations: [Acute maxillary sinusitis]EpisodicResidual codes; unclassified (3 sources)Postmenopausal state; Translations: [Asymptomatic menopausal state] Resolved: 983731-59-3353JqxtsuloGisjwphv lupus erythematosus and connective tissue disorders (14 sources)Systemic sclerosis, unspecified; Translations: [Scleroderma]Onset: 91-01-6356Colpzcm Past or Other Problems Problem ClassificationProblemDateDocumented DateEpisodic/ChronicAbdominal pain (1 source)Pelvic and perineal pain; Translations: [Pelvic and perineal pain] Resolved: 83-89-3065QwivgbgaHkcsazmthm disorders (2 sources)Atrophic vaginitis; Translations: [Postmenopausal atrophic vaginitis] Resolved: 46-97-5438TtwpjawZvjuo aftercare (1 source)History and physical examination, follow-up; Translations: [Encounter for follow-up examination after completed treatment for conditions other than malignant neoplasm] Resolved: 58-28-7520BualruakCeypf female genital disorders (1 source)Noninflammatory disorder of the vagina; Translations: [Other specified noninflammatory disorders ofvagina] Resolved: 41-73-1620ShuwjsmqJhzks nutritional; endocrine; and metabolic disorders (1 source)Underweight; Translations: [Underweight] Resolved: 08-18-1104LzkkcqbrQtqisson of female genital organs (1 source)Uterovaginal prolapse; Translations: [Uterovaginal prolapse, unspecified] Resolved: 34-96-7782LooisljVhflyynb codes; unclassified (1 source)Family history of malignant neoplasm of breast; Translations: [FAMILY HX MALIG NEOPLASM OF BREAST]Onset: 89-08-7229MdtbyijaWgcbsbbe codes; unclassified (1 source)Requires influenza virus vaccination; Translations: [Need for prophylactic vaccination and inoculation, Influenza]Onset: 10-50-6089Svrokfdj Spondylosis; intervertebral disc disorders; other back problems (1 source)Low back pain; Translations: [Lumbago]Onset: 70-74-4833Juostiss Results Test NameValueInterpretationReference RangeFacilityIGP,APTIMA HPV,AGE GDLNon 87-41-4546NXP GDLN ACOG TESTINGNote.NOMS HealthcareComment on above:TESTS RESULT FLAG UNITS REF RANGE LAB Clinician Provided Cytology Information Source.............Vagina No. of containers..01 ThinPrep Vial Age Algo ACOG Liz... 30 FLAG LEGEND: L-Low Normal,H-High Normal,LL-Alert Low,HH-Alert High <-Panic Low,>-Panic High,A-Abnormal,AA-Critical Abnormal Performed at: 01 =[address] [address] Betsy Harris MD, HPV APTIMANegativeNegativeNOMS HealthcareComment on above:This nucleic acid amplification test detects fourteen high- risk HPV types (16,18,31,33,35,39,45,51,52,56,58,59,66,68) without differentiation. Performed at: =[address] [id number] Sports Official: Betsy Harris MD, Phone: [phone] Performed at: [address] [id number] Sports Official: Betsy Harris MD, Phone: [phone] IGP, APTIMA HPV, RFX 16/18,45Note.NOMS HealthcareComment on above:TESTS RESULT FLAG UNITS REF RANGE LAB DIAGNOSIS: 02 NEGATIVE FOR INTRAEPITHELIAL LESION OR MALIGNANCY. REACTIVE CELLULAR CHANGES AND/OR REPAIR ARE PRESENT. CELLULAR CHANGES ASSOCIATED WITH ATROPHY ARE PRESENT. Specimen adequacy: 02 Satisfactory for evaluation. Endocervical component may not be distinguished in cases of atrophy. Performed by: 02 Savanah Brower, Racebook Writer (ASCP) Electronically si... 02 Meghan Talley MD, [...] <-Panic Low,>-Panic High,A-Abnormal,AA-Critical Abnormal Performed at: [address] [address] Betsy Harris MD, SPATULA-ALONE [facility] TOMOSYNTHESIS SCREENING BIon [phone], [place] [address] Mammography Report Signed Patient: SIERRA ASHLEY MR#: [id number] : 1965 Acct:[id number] Age/Sex: 58 / F ADM Date: 12/18/23 Loc: MAMMO Attending Dr: Stephanie Reed Ordering Physician: Stephanie Reed Results: Date of Service: 12/18/23 Follow Up: Procedure(s): MM tomosynthesis screening BI Accession Number(s): [id number] cc: Stephanie Reed; Physician,Non-Staff M.D. Patient Name: SIERRA ASHLEY MR#: [id number] : 1965 Exam Date: 12/18/2023 Ordering Doctor: [...] breast cancer at age 60. LOCATION: [facility] BREAST COMPOSITION: The breasts are extremely [...] BIOPSIED. Dictated by: Guanaco Chong MD on 12/18/2023 at 12:47 Approved by: Guanaoc Chong MD on 12/18/2023 at 12:48 Dictated By: Guanaco Chong M.D. Signed By: 12/18/23 1249 DD/ 1248 TD/TT: Product Steward:TBHRadiology, Radiologist, - 12/18/2023 [place] [address] Mammography Report Signed Patient: SIERRA ASHLEY MR#: [id number] : 1965 Acct:[id number] Age/Sex: 58 / F ADM Date: 12/18/23 Loc: MAMMO Attending Dr: Stephanie Reed Ordering Physician: Stephanie Reed Results: Date of Service: 12/18/23 Follow Up: Procedure(s): MM tomosynthesis screening BI Accession Number(s): [id number] cc: Stephanie Reed; Physician,Non-Staff M.Mitzy Patient Name: SIERRA ASHLEY MR#: [id number] : 1965 Exam Date: 12/18/2023 Ordering Doctor: [...] breast cancer at age 60. LOCATION: [facility] BREAST COMPOSITION: The breasts are extremely [...] BIOPSIED. Dictated by: Guanaco Chong MD on 12/18/2023 at 12:47 Approved by: Guanaco Chong MD on 12/18/2023 at 12:48 Dictated By: Guanaco Chong M.D. Signed By: 12/18/23 1249 DD/ 1248 TD/TT: Product Steward: [facility] HealthcareRadiology Study observation (narrative)[facility] TOMOSYNTHESIS SCREENING BIOrdered By: Radiologist Radiology on 02-62-7104GDNOCitizens Memorial Healthcare Work Phone: c3 and C4 COMPLEMENTon 04-07-9338Ujjadkojrj C3, Serum 99 mg/hUQlqupo03-358KxtUniversity Hospitals St. John Medical CenterComment on above:Performed By: #### VITAD #### [facility] [address] [address] [address] Garfield NelsonComplement C4, Serum14 mg/hPOattlg18-04CkmUniversity Hospitals St. John Medical Center Comment on above:Performed By: #### VITAD #### [facility] [address] [address] [address] Garfield NelsonCOMPLEMENT TOTAL (CH50)on 06-97-3121Sqsxalcrxp, Total (CH50)>60 Normal>41The [facility] HospitalComment on above:Result Comment: Age Male Female 1 - 30 [...] table above to determine out of range values.Performed By: #### CH50T #### [facility] [address] [place] [address] Dr. Garfield Viramontes AUTO DIFFon 94-36-8322PCVA #0.0 103/ulNormal0.0-0.1The [facility] HospitalComment on above:Performed By: #### CBC #### [facility] [address] [place] [address] Dr. Garfield NelsonBasophils/100 WBC (Bld)0.4 %Normal0.2-2.0[facility] Comment on above:Performed By: #### CBC #### [facility] [address] [place] [address] Dr. Garfield Michelle #0.1 103/ulNormal0.0-0.7The [facility] HospitalComment on above: Performed By: #### CBC #### [facility] [address] [place] [address] Dr. Garfield Grimaldoosinophils/100 WBC (Bld)1.1 %Normal0.9-7.0[facility] Comment on above:Performed By: #### CBC #### [facility] [address] [place] [address] Dr. Garfield Grimaldorythrocyte distribution width (RBC) [Ratio]14.9 %Dycxbg41.0-15.0 The [facility] HospitalComment on above:Performed By: #### CBC #### [facility] [address] [place] [address] Dr. Garfield NelsonHematocrit (Bld) [Volume fraction]38.3 %Sqgoln58.0-48.0The [facility] HospitalComment on above:Performed By: #### CBC #### [facility] [address] [place] [address] Dr. Garfield NelsonHemoglobin (Bld) [Mass/Vol]12.2 g/zQKiadvo55.0-16.0The [facility] HospitalComment on above:Performed By: #### CBC #### [facility] [address] [place] [address] Dr. Garfield Quiroz #0.03 10e3/ulNormal0.00-0.03The [facility] HospitalComment on above:Performed By: #### CBC #### [facility] [address] [place] [address] Dr. Garfield Quiroz %0.3 %Normal0.0-0.5The [facility] HospitalComment on above: Performed By: #### CBC #### [facility] [address] [place] [address] Dr. Garfield Huynh #2.1 103/ulNormal1.2-3.8The [facility] HospitalComment on above:Performed By: #### CBC #### [facility] [address] [place] [address] Dr. Garfield Reddyhocytes/100 WBC (Bld)22.6 %Joyjyg92.5-60.0The [facility] HospitalComkalamazoo psychiatric hospital on above:Performed By: #### CBC #### [facility] [address] [place] [address] Dr. Garfield PraterUAL DIFF REQNONormalThe [facility] HospitalComment on above: Performed By: #### CBC #### [facility] [address] [place] [address] Dr. Garfield Fritz (RBC) [Entitic mass]28.5 kmTheoto26.7-34.0The [facility] HospitalComment on above:Performed By: #### CBC #### [facility] [address] [place] [address] Dr. Garfield Fritz (RBC) [Mass/Vol]31.9 g/nHFelzvu43.9-35.2The [facility] HospitalComment on above:Performed By: #### CBC #### [facility] [address] [place] [address] Dr. Garfield Fritz (RBC) [Entitic vol]89.5 wBUhcylz57.0-99.0The [facility] HospitalComment on above:Performed By: #### CBC #### [facility] [address] [address] [address] Garfield Baker #1.0 103/ulCritically high0.3-0.8The [facility] Comment on above:Performed By: #### CBC #### [facility] [address] [place] [address] Dr. Garfield Bajwaocytes/100 WBC (Bld)10.5 %Normal1.7-12.0The [facility] Comment on above:Performed By: #### CBC #### [facility] [address] [place] [address] Dr. Garfield Roman #6.1 103/ulNormal1.4-6.5The [facility] HospitalComment on above:Performed By: #### CBC #### [facility] [address] [place] [address] Dr. Garfield Acevesutrophils/100 WBC (Bld)65.1 %Rivulv63.0-75.0The [facility] HospitalComment on above:Performed By: #### CBC #### [facility] [address] [place] [address] Dr. Garfield Paezlet mean volume (Bld) [Entitic vol]12.1 fLNormal9.5-13.5The [facility] HospitalComment on above:Performed By: #### CBC #### [facility] [address] [place] [address] Dr. Garfield NelsonPLT276 103/fiOnyisz123-074Raq [facility] HospitalComment on above: Performed By: #### CBC #### [facility] [address] [place] [address] Dr. Garfield NelsonRBC4.28 106/ulNormal4.20-5.40The [facility] HospitalComment on above:Performed By: #### CBC #### [facility] [address] [place] [address] Dr. Garfield NelsonWBC9.4 103/ulNormal4.0-11.0The [facility] HospitalComment on above: Performed By: #### CBC #### [facility] [address] [place] [address] Dr. Garfield NelsonMAGNESIUMon 13-05-1346Edkkopwsa [Mass/Vol]2.0 mg/dLNormal1.8-2.4 The [facility] HospitalComment on above:Performed By: #### VITAD #### [facility] [address] [place] [address] Dr. Garfield NelsonPHOSPHORUSon 00-08-2313Qlvmbuiup [Mass/Vol]3.0 mg/dLNormal2.6-4.7 The [facility] HospitalComment on above:Performed By: #### VITAD #### [facility] [address] [place] [address] Dr. Garfield NelsonPROF 14(COMP METB)on 88-53-2609Ucoepxi [Mass/Vol]3.8 g/dLNormal 3.4-5.0The [facility] HospitalComment on above:Performed By: #### VITAD #### [facility] [address] [place] [address] Dr. Garfield NelsonAlbumin/Globulin [Mass ratio]1.0 {ratio}NormalThe [facility] HospitalComment on above:Performed By: #### VITAD #### [facility] [address] [place] [address] Dr. Garfield Larson [Catalytic activity/Vol]93 U/PQqqrqx00-439Byu [facility] HospitalComment on above:Performed By: #### VITAD #### [facility] [address] [place] [address] Dr. Garfield Arrington [Catalytic activity/Vol]19 U/KBrevou04-80Rri [facility] HospitalComment on above:Performed By: #### VITAD #### [facility] [address] [place] [address] Dr. Garfield Hardy gap [Moles/Vol]9.5 mmol/LNormalThe [facility] HospitalComment on above:Performed By: #### VITAD #### [facility] [address] [place] [address] Dr. Garfield Melendez [Catalytic activity/Vol]22 U/VGjxhqy86-47Ifh [facility] HospitalComment on above:Performed By: #### VITAD #### [facility] [address] [address] [address] Garfield NelsonBilirubin [Mass/Vol]0.3 mg/dLNormal0.2-1.0[facility] Comment on above:Performed By: #### VITAD #### [facility] [address] [place] [address] Dr. Garfield NelsonCalcium [Mass/Vol]8.7 mg/dLNormal8.5-10.1[facility] Comment on above:Performed By: #### VITAD #### [facility] [address] [place] [address] Dr. Garfield NelsonChloride [Moles/Vol]104 mmol/FAgudux43-011LgbUniversity Hospitals St. [facility] Medical Center Comment on above:Performed By: #### VITAD #### [facility] [address] [place] [address] Dr. Garfield NelsonCO2 [Moles/Vol]29.0 mmol/YFwcjoa43.0-32.0The [facility] Comment on above:Performed By: #### VITAD #### [facility] [address] [place] [address] Dr. Garfield NelsonCreatinine [Mass/Vol]0.65 mg/dLNormal0.55-1.02The [facility] HospitalComment on above:Performed By: #### VITAD #### [facility] [address] [place] [address] Dr. Garfield GrimaldoGFR-AF JORDANIAN>60Normal>=60The [facility] HospitalComment on above:Performed By: #### VITAD #### [facility] [address] [place] [address] Dr. Garfield GrimaldoGFR-NON AF JORDANIAN>60Normal>=60The [facility] HospitalComment on above:Performed By: #### VITAD #### [facility] [address] [place] [address] Dr. Garfield NelsonGlobulin (S) [Mass/Vol]3.8 g/dLNormalThe Jose HospitalComment on above:Performed By: #### VITAD #### [facility] [address] [address] [address] Garfield NelsonGlucose [Mass/Vol]87 mg/pYDiuygu27-320ByeUniversity Hospitals St. [facility] Center Comment on above:Performed By: #### VITAD #### [facility] [address] [address] [address] Garfield NelsonPotassium [Moles/Vol]3.5 mmol/LNormal3.5-5.1The [facility] Comment on above:Performed By: #### VITAD #### [facility] [address] [place] [address] Dr. Garfield NelsonProtein [Mass/Vol]7.6 g/dLNormal6.4-8.2[facility] Comment on above:Performed By: #### VITAD #### [facility] [address] [address] [address] Garfield NelsonSodium [Moles/Vol]139 mmol/YWdwuqp751-316OxmUniversity Hospitals St. [facility] Center Comment on above:Performed By: #### VITAD #### [facility] [address] [place] [address] Dr. Garfield NelsonUrea nitrogen [Mass/Vol]15.0 mg/dLNormal7.0-18.0[facility] John Medical CenterComment on above:Performed By: #### VITAD #### [facility] [address] [place] [address] Dr. Garfield NelsonUrea nitrogen/Creatinine [Mass ratio]23.1 mg/mgNoalThMcCullough-Hyde Memorial HospitalComment on above:Performed By: #### VITAD #### [facility] [address] [place] [address] Dr. Garfield Davila RATE WESTERGRENon 62-86-1231LXI RATE39 mm/hrCritically high <=30[facility] John Medical CenterComment on above:Performed By: #### MG, PHOS, CMP #### [facility] [address] [place] [address] Dr. Garfield NelsonUA RANDOM W/MICROSCOPICon 20-44-7349PKSZQQHGBTUP SEENNormalNONE SEENUniversity Hospitals St. John Medical CenterComment on above:Performed By: #### CSUITE #### [facility] [address] [address] [address] Garfield NelsonBilirubin Ql (U)NegativeNormalNEGATIVEUniversity Hospitals St. [facility] Comment on above:Performed By: #### CSUITE #### [facility] [address] [address] [address] Garfield NelsonCASTNONE SEENNormalNONE SEENUniversity Hospitals St. John Medical CenterComment on above:Performed By: #### CSUITE #### [facility] [address] [place] [address] Dr. Garfield NelsonClarity (U)CLEARNormalCLEARUniversity Hospitals St. John Medical CenterComment on above: Performed By: #### CSUITE #### [facility] [address] [place] [address] Dr. Garfield Ricelor (U)LT. YELLOWNormalYOhioHealth Shelby HospitalComment on above:Performed By: #### CSUITE #### [facility] [address] [place] [address] Dr. Garfield NelsonCrystals LM Nom (Urine sed)NONE SEENNormalNONE SEENUniversity Hospitals St. John Medical CenterComment on above:Performed By: #### CSUITE #### [facility] [address] [place] [address] Dr. Merrill ChangEpithelial cells LM Ql (Urine sed)RARENormalNONE SEEN /RAREUniversity Hospitals St. John Medical CenterComment on above:Performed By: #### CSUITE #### [facility] [address] [address] [address] Garfield NelsonGlucose Ql (U)NegativeNormalNEGATIVEUniversity Hospitals St. John Medical CenterComment on above:Performed By: #### CSUITE #### [facility] [address] [place] [address] Dr. Garfield NelsonHemoglobin Ql (U)NegativeNormalNEGATIVEUniversity Hospitals St. John Medical Center Comment on above:Performed By: #### CSUITE #### [facility] [address] [place] [address] Dr. Garfield Levin Ql (U)NegativeNormalNEGATIVEThe [facility] HospitalComment on above:Performed By: #### CSBIJALE #### [facility] [address] [place] [address] Dr. Garfield NelsonLEUKOCYTESNegativeNormalNEGATIVEThe [facility] HospitalComment on above:Performed By: #### CSBIJALE #### [facility] [address] [place] [address] Dr. Garfield TaylorCOUSNONKamla SEENNormalNONE SEENUniversity Hospitals St. John Medical CenterComment on above:Performed By: #### OSIRISE #### [facility] [address] [place] [address] Dr. Garfield Fitzpatricktrite Ql (U)NegativeNormalNEGATIVEThe [facility] HospitalComment on above:Performed By: #### OSIRISE #### [facility] [address] [place] [address] Dr. Garfield NelsonpH (U)7.0 [pH]Normal5-9University [facility] St. John Medical CenterComment on above: Performed By: #### OSIRISE #### [facility] [address] [place] [address] Dr. Garfield NelsonRBCNONE SEENAbnormal0-2The [facility] HospitalComment on above: Performed By: #### AN #### [facility] [address] [place] [address] Dr. Garfield NelsonSPEC GRAVITY<=1.751Stnlrinl7.005-<=1.025The [facility] Comment on above:Performed By: #### OSIRISE #### [facility] [address] [place] [address] Dr. Garfield Garcia PROTEINNegativeNormalNEGATIVE/ TRACEThe [facility] Comment on above:Performed By: #### OSIRISE #### [facility] [address] [place] [address] Dr. Garfield Ordazbilinogen Qn (U)0.2 {Marquise'U}/dLNormal0.2 - 1.0The [facility] HospitalComment on above:Performed By: #### CSUITE #### [facility] [address] [place] [address] Dr. Garfield BarrowBCNONKamla SEENNormalNONE SEENThe [facility] HospitalComment on above: Performed By: #### CSUITE #### [facility] [address] [place] [address] Dr. Garfield NelsonC3 and C4 COMPLEMENTon 65-23-3307Ivghkuzyzy C3, Suhjj574 mg/dL Uuxsbp48-825Fkm [facility] HospitalComment on above:Performed By: #### VITAD #### [facility] [address] [place] [address] Dr. Garfield NelsonComplement C4, Serum20 mg/dFLpoudx24-06Omk [facility] Comment on above:Performed By: #### VITAD #### [facility] [address] [place] [address] Dr. Garfield NelsonCOMPLEMENT TOTAL (CH50)on 97-29-9686Vtsscgbgfz, Total (CH50)>60 Normal>41The [facility] HospitalComment on above:Result Comment: Age Male Female 1 - 30 [...] table above to determine out of range values.Performed By: #### CH50T #### [facility] [address] [place] [address] Dr. Garfield NelsonCBC AUTO DIFFon 20-13-5877EHYE #0.1 103/ulNormal0.0-0.1The [facility] HospitalComment on above:Performed By: #### VITAD #### [facility] [address] [place] [address] Dr. Garfield NelsonBasophils/100 WBC (Bld)0.6 %Normal0.2-2.0The [facility] Comment on above:Performed By: #### VITAD #### [facility] [address] [place] [address] Dr. Garfield Michelle #0.1 103/ulNormal0.0-0.7The [facility] HospitalComment on above: Performed By: #### VITAD #### [facility] [address] [place] [address] Dr. Garfield Grimaldoosinophils/100 WBC (Bld)1.4 %Normal0.9-7.0The [facility] Comment on above:Performed By: #### VITAD #### [facility] [address] [place] [address] Dr. Garfield Townsendthrocyte distribution width (RBC) [Ratio]14.2 %Bzfqmz73.0-15.0 The [facility] HospitalComment on above:Performed By: #### VITAD #### [facility] [address] [place] [address] Dr. Garfield NelsonHematocrit (Bld) [Volume fraction]39.1 %Ebixyx35.0-48.0The [facility] HospitalComment on above:Performed By: #### VITAD #### [facility] [address] [place] [address] Dr. Garfield NelsonHemoglobin (Bld) [Mass/Vol]12.7 g/qCVvabat29.0-16.0The [facility] HospitalComment on above:Performed By: #### VITAD #### [facility] [address] [place] [address] Dr. Garfield Quiroz #0.02 10e3/ulNormal0.00-0.03The [facility] HospitalComment on above:Performed By: #### VITAD #### [facility] [address] [place] [address] Dr. Garfield Quiroz %0.2 %Normal0.0-0.5The [facility] HospitalComment on above: Performed By: #### VITAD #### [facility] [address] [place] [address] Dr. Garfield Huynh #2.0 103/ulNormal1.2-3.8The [facility] HospitalComment on above:Performed By: #### VITAD #### [facility] [address] [place] [address] Dr. Garfield Reddyhocytes/100 WBC (Bld)24.9 %Zgauqa42.5-60.0The [facility] HospitalComment on above:Performed By: #### VITAD #### [facility] [address] [place] [address] Dr. Garfield Leon DIFF REQNONormalThe [facility] HospitalComment on above: Performed By: #### VITAD #### [facility] [address] [place] [address] Dr. Garfield Jean (RBC) [Entitic mass]28.5 qtNyxlkj81.7-34.0The [facility] HospitalComment on above:Performed By: #### VITAD #### [facility] [address] [place] [address] Dr. Garfield Fritz (RBC) [Mass/Vol]32.5 g/rPBfypul62.9-35.2The [facility] HospitalComment on above:Performed By: #### VITAD #### [facility] [address] [place] [address] Dr. Garfield Holcomb (RBC) [Entitic vol]87.7 qWTguzin22.0-99.0The [facility] HospitalComment on above:Performed By: #### VITAD #### [facility] [address] [place] [address] Dr. Garfield Baker #1.0 103/ulCritically high0.3-0.8The [facility] Comment on above:Performed By: #### VITAD #### [facility] [address] [place] [address] Dr. Garfield Bajwaocytes/100 WBC (Bld)12.3 %Critically high1.7-12.0The [facility] HospitalComment on above:Performed By: #### VITAD #### [facility] [address] [place] [address] Dr. Garfield Roman #4.9 103/ulNormal1.4-6.5The [facility] HospitalComment on above:Performed By: #### VITAD #### [facility] [address] [place] [address] Dr. Garfield Acevesutrophils/100 WBC (Bld)60.6 %Gzvduq13.0-75.0The [facility] on above:Performed By: #### VITAD #### [facility] [address] [place] [address] Dr. Garfield NelsonPlatelet mean volume (Bld) [Entitic vol]12.0 fLNormal9.5-13.5The [facility] on above:Performed By: #### VITAD #### [facility] [address] [place] [address] Dr. Garfield NelsonPLT247 103/wnLmhrbt786-136Epv [facility] HospitalComkalamazoo psychiatric hospital on above: Performed By: #### VITAD #### [facility] [address] [place] [address] Dr. Garfield NelsonRBC4.46 106/ulNormal4.20-5.40The [facility] on above:Performed By: #### VITAD #### [facility] [address] [place] [address] Dr. Garfield NelsonWBC8.1 103/ulNormal4.0-11.0The [facility] on above: Performed By: #### VITAD #### [facility] [address] [place] [address] Dr. Garfield NelsonMAGNESIUMon 22-14-7240Noxulbsmj [Mass/Vol]2.0 mg/dLNormal1.8-2.4 The [facility] on above:Performed By: #### MG, PHOS, CMP #### [facility] [address] [place] [address] Dr. Garfield NelsonPHOSPHORUSon 58-07-9903Cqrjabosh [Mass/Vol]3.6 mg/dLNormal2.6-4.7 The [facility] HospitalComment on above:Performed By: #### MG, PHOS, CMP #### [facility] [address] [place] [address] Dr. Garfield Shafer 14(COMP METB)on 61-06-8126Ivkrjvj [Mass/Vol]3.8 g/dLNormal 3.4-5.0The [facility] HospitalComment on above:Performed By: #### MG, PHOS, CMP #### [facility] [address] [place] [address] Dr. Garfield NelsonAlbumin/Globulin [Mass ratio]1.0 {ratio}NormalThe [facility] HospitalComment on above:Performed By: #### MG, PHOS, CMP #### [facility] [address] [place] [address] Dr. Garfield Larson [Catalytic activity/Vol]69 U/MFbigsc18-700Awx [facility] HospitalComment on above:Performed By: #### MG, PHOS, CMP #### [facility] [address] [place] [address] Dr. Garfield Arrington [Catalytic activity/Vol]14 U/JPsxaoi47-46Cao [facility] HospitalComment on above:Performed By: #### MG, PHOS, CMP #### [facility] [address] [place] [address] Dr. Garfield Hardy gap [Moles/Vol]12.4 mmol/LNormalThe [facility] Comment on above:Performed By: #### MG, PHOS, CMP #### [facility] [address] [place] [address] Dr. Garfield Melendez [Catalytic activity/Vol]22 U/ZWwvfyf94-16Fer [facility] HospitalComment on above:Performed By: #### MG, PHOS, CMP #### [facility] [address] [place] [address] Dr. Garfield NelsonBilirubin [Mass/Vol]0.3 mg/dLNormal0.2-1.0The [facility] Comment on above:Performed By: #### MG, PHOS, CMP #### [facility] [address] [address] [address] Garfield NelsonCalcium [Mass/Vol]8.6 mg/dLNormal8.5-10.1The [facility] Comment on above:Performed By: #### MG, PHOS, CMP #### [facility] [address] [place] [address] Dr. Garfield NelsonChloride [Moles/Vol]101 mmol/HTibpez81-216Uac [facility] Comment on above:Performed By: #### MG, PHOS, CMP #### [facility] [address] [place] [address] Dr. Garfield NelsonCO2 [Moles/Vol]29.4 mmol/DPblotn33.0-32.0The [facility] Comment on above:Performed By: #### MG, PHOS, CMP #### [facility] [address] [place] [address] Dr. Garfield NelsonCreatinine [Mass/Vol]0.79 mg/dLNormal0.55-1.02The [facility] HospitalComment on above:Performed By: #### MG, PHOS, CMP #### [facility] [address] [place] [address] Dr. Garfield GrimaldoGFR-AF JORDANIAN>60Normal>=60The [facility] HospitalComment on above:Performed By: #### MG, PHOS, CMP #### [facility] [address] [place] [address] Dr. Garfield GrimaldoGFR-NON AF JORDANIAN>60Normal>=60The [facility] HospitalComment on above:Performed By: #### MG, PHOS, CMP #### [facility] [address] [place] [address] Dr. Garfield NelsonGlobulin (S) [Mass/Vol]3.9 g/dLNormalThe [facility] HospitalComment on above:Performed By: #### MG, PHOS, CMP #### [facility] [address] [place] [address] Dr. Garfield NelsonGlucose [Mass/Vol]109 mg/dLCritically abob76-919Dvf [facility] HospitalComment on above:Performed By: #### MG PHOS, CMP #### [facility] [address] [address] [address] Garfield NelsonPotassium [Moles/Vol]3.8 mmol/LNormal3.5-5.1[facility] Comment on above:Performed By: #### MG PHOS, CMP #### [facility] [address] [place] [address] Dr. Garfield NelsonProtein [Mass/Vol]7.7 g/dLNormal6.4-8.2The [facility] Comment on above:Performed By: #### MG PHOS, CMP #### [facility] [address] [place] [address] Dr. Garfield NelsonSodium [Moles/Vol]139 mmol/YMyhlbj013-342Qwf [facility] Comment on above:Performed By: #### MG PHOS, CMP #### [facility] [address] [place] [address] Dr. Garfield NelsonUrea nitrogen [Mass/Vol]17.0 mg/dLNormal7.0-18.0The [facility] HospitalComment on above:Performed By: #### MG PHOS, CMP #### [facility] [address] [place] [address] Dr. Garfield Guerra nitrogen/Creatinine [Mass ratio]21.5 mg/mgNormalThe [facility] HospitalComment on above:Performed By: #### MG PHOS, CMP #### [facility] [address] [place] [address] Dr. Garfield Davila RATE WESTERGREN 98-29-3786ADF RATE40 mm/hrCritically high <=30The [facility] HospitalComment on above:Performed By: #### CSUITE #### [facility] [address] [place] [address] Dr. Garfield Garcia RANDOM W/MICROSCOPICon 58-04-7027LSBKLJYCTQXM SEENNormalNONE SEENThe [facility] HospitalComment on above:Performed By: #### CSUITE #### [facility] [address] [address] [address] Garfield NelsonBilirubin Ql (U)NegativeNormalNEGATIVEUniversity Hospitals St. [facility] Comment on above:Performed By: #### CSUITE #### [facility] [address] [address] [address] Garfield Morales SEENNormalNONE SEENUniversity Hospitals St. John Medical CenterComment on above:Performed By: #### CSUITE #### [facility] [address] [place] [address] Dr. Garfield NelsonClarity (U)CLEARNormalCLEARUniversity Hospitals St. John Medical CenterComment on above: Performed By: #### CSUITE #### [facility] [address] [place] [address] Dr. Garfield iRcelor (U)LT. YELLOWNormalYELLOWUniversity Hospitals St. John Medical CenterComment on above:Performed By: #### CSUITE #### [facility] [address] [place] [address] Dr. Garfield NelsonCrystals LM Nom (Urine sed)NONE SEENNormalNONE SEENUniversity Hospitals St. John Medical CenterComment on above:Performed By: #### CSUITE #### [facility] [address] [place] [address] Dr. Merrill ChangEpithelial cells LM Ql (Urine sed)NONE SEENNormalNONE SEEN /RARE The [facility] HospitalComment on above:Performed By: #### CSUITE #### [facility] [address] [place] [address] Dr. Garfield NelsonGlucose Ql (U)NegativeNormalNEGATIVEUniversity Hospitals St. John Medical CenterComment on above:Performed By: #### CSUITE #### [facility] [address] [place] [address] Dr. Garfield NelsonHemoglobin Ql (U)NegativeNormalNEGATIVEUniversity Hospitals St. [facility] Comment on above:Performed By: #### CSUITE #### [facility] [address] [place] [address] Dr. Garfield NelsonKetones Ql (U)NegativeNormalNEGATIVEUniversity Hospitals St. John Medical CenterComment on above:Performed By: #### AN #### [facility] [address] [place] [address] Dr. Garfield NelsonLEUKOCYTESNegativeNormalNEGATIVEThe [facility] HospitalComment on above:Performed By: #### AN #### [facility] [address] [place] [address] Dr. Garfield TaylorCOUSNONKamla SEENNormalNONE SEENUniversity Hospitals St. John Medical CenterComment on above:Performed By: #### AN #### [facility] [address] [place] [address] Dr. Garfield Fitzpatricktrgisele Ql (U)NegativeNormalNEGATIVEThe [facility] HospitalComment on above:Performed By: #### AN #### [facility] [address] [place] [address] Dr. Garfield NelsonpH (U)6.0 [pH]Normal5-9The [facility] HospitalComment on above: Performed By: #### AN #### [facility] [address] [place] [address] Dr. Garfield NelsonMyhsiFGT5-5Pbbvds0-1Ydn [facility] Southment on above:Performed By: #### AN #### [facility] [address] [place] [address] Dr. Garfield NelsonSPEC GRAVITY1.580Anfrjn7.005-<=1.025The [facility] HospitalComment on above:Performed By: #### AN #### [facility] [address] [place] [address] Dr. Garfield Garcia PROTEINNegativeNormalNEGATIVE/ TRACEThe [facility] Comment on above:Performed By: #### AN #### [facility] [address] [place] [address] Dr. Garfield Ordazbilinogen Qn (U)0.2 {Marquise'U}/dLNormal0.2 - 1.0The [facility] HospitalComment on above:Performed By: #### AN #### [facility] [address], [place] [address] Dr. Merrill ChangWBCNONKamla SEENNormalNONE SEENThe [facility] HospitalComment on above: Performed By: #### AN #### [facility] [address] [place], [place] [address] Dr. Garfield Kraft echo transthoracicon 23-13-2755WRJ echo transthoracic [facility] [place] [address] [place] [address] Echocardiogram Signed Patient: Sierra Ashley MR#: [id number] : 1965 Acct:[id number] Age/Sex: 56 / F ADM Date: 01/02/22 Loc: Room: Type: [facility] Attending Dr: Patricia SALEH Ordering Provider: THERESE Shaw Date of Service: 01/02/22/ ECH/ECH echo transthoracic: Pulmonary fibrosis. PHTN. SOB. correction drug therapy. Copies to: Mayte Castro MD, FACC THERESE Shaw BSA: 1.5 m2 BP: 115/83 mmHg HR: 75 Reason For Study: Pulmonary fibrosis. PHTN. SOB. correction drug therapy. History: pulmonary hypertension Interpretation Summary [...] Performed At: 01/02/22 1254 Signed By: Mayte Castro MD, [facility] 01/02/22 1417[facility] ACOG PANEL 2: 30 to 65on 12-23-2021..NormalThe [facility] HospitalComment on above:Result Comment: Performed at: WBPerformed By: #### RAKESH REED, CMP #### [facility] [address] [place] [address] Dr. Garfield Ray Gdln ACOG Gcaidra11-10MtrsltUwvDelaware County HospitalComment on above:Performed By: #### RAKESH REED, CMP #### [facility] [address] [address] [address] Garfield NelsonDIAGNOSIS:CommentThe Bellevue HospitalComment on above: Result Comment: NEGATIVE FOR INTRAEPITHELIAL LESION OR MALIGNANCY. CELLULAR CHANGES ASSOCIATED WITH ATROPHY ARE PRESENT. Performed at: WBPerformed By: #### RAKESH REED, CMP #### [facility] [address] [place] [address] Dr. Garfield NelsonHPV AptimaNegativeNormalNegativeUniversity Hospitals St. John Medical CenterComment on above:Result Comment: This nucleic acid amplification test detects fourteen high-risk HPV types (16,18,31,33,35,39,45,51,52,56,58,59,66,68) without differentiation. Performed at: =GPerformed By: #### MG, PHOS, CMP #### [facility] [address] [place] [address] Dr. Garfield NelsonMethodology:CommentPremier Health Upper Valley Medical Center on above: Result Comment: This liquid based ThinPrep(R) pap test was screened with the use of an image guided system. Performed at: WBPerformed By: #### MG, PHOS, CMP #### [address] [place] [address] Dr[address] Garfield NelsonNote:CommentPremier Health Upper Valley Medical Center on above:Result Comment: The Pap smear is a screening test designed to aid in the detection of premalignant and malignant conditions of the uterine cervix. It is not a diagnostic procedure and should not be used as the sole means of detecting cervical cancer. Both false-positive and false-negative reports do occur. . Performed at: WBPerformed By: #### MG, PHOS, CMP #### [place] [address] Dr. Garfield NelsonPerformed by:CommentPremier Health Upper Valley Medical Center on above: Result Comment: Veronique Noble, Racebook Writer (ASCP) Performed at: WBPerformed By: #### MG, PHOS, CMP #### [facility] [address] [place] [address] Dr. Garfield NelsonSpecimen adequacy:CommentPremier Health Upper Valley Medical Center on above:Result Comment: Satisfactory for evaluation. Endocervical component may not be distinguished in cases of atrophy. Performed at: WBPerformed By: #### MG, PHOS, CMP #### [facility] [address] [place] [address] Dr. Garfield NelsonGEORGETOWN [facility] AUTO DIFFon [id number] #0.0 103/ulNormal0.0-0.1The [facility] on above:Performed By: #### VITAD #### [facility] [address] [place] [address] Dr. Garfield NelsonBasophils/100 WBC (Bld)0.6 %Normal0.2-2.0The [facility] Comment on above:Performed By: #### VITAD #### [facility] [address] [place] [address] Dr. Garfield Michelle #0.2 103/ulNormal0.0-0.7The [facility] HospitalComment on above: Performed By: #### VITAD #### [facility] [address] [place] [address] Dr. Garfield Grimaldoosinophils/100 WBC (Bld)2.8 %Normal0.9-7.0The [facility] Comment on above:Performed By: #### VITAD #### [facility] [address] [place] [address] Dr. Garfield Grimaldorythrocyte distribution width (RBC) [Ratio]14.0 %Kwnnkk48.0-15.0 The [facility] HospitalComment on above:Performed By: #### VITAD #### [facility] [address] [place] [address] Dr. Garfield NelsonHematocrit (Bld) [Volume fraction]42.3 %Iswrrq01.0-48.0The [facility] HospitalComment on above:Performed By: #### VITAD #### [facility] [address] [place] [address] Dr. Garfield NelsonHemoglobin (Bld) [Mass/Vol]13.3 g/lOYlehdn86.0-16.0The [facility] HospitalComment on above:Performed By: #### VITAD #### [facility] [address] [place] [address] Dr. Garfield Quiroz #0.02 10e3/ulNormal0.00-0.03The [facility] HospitalComment on above:Performed By: #### VITAD #### [facility] [address] [place] [address] Dr. Garfield Quiroz %0.3 %Normal0.0-0.5The [facility] HospitalComment on above: Performed By: #### VITAD #### [facility] [address] [place] [address] Dr. Garfield Huynh #1.9 103/ulNormal1.2-3.8The [facility] HospitalComment on above:Performed By: #### VITAD #### [facility] [address] [place] [address] Dr. Garfield Reddyhocytes/100 WBC (Bld)30.0 %Iddegy09.5-60.0The [facility] HospitalComment on above:Performed By: #### VITAD #### [facility] [address] [place] [address] Dr. Garfield Leon DIFF REQNONormalThe [facility] HospitalComment on above: Performed By: #### VITAD #### [facility] [address] [place] [address] Dr. Garfield Jean (RBC) [Entitic mass]28.5 poKosjjy87.7-34.0The [facility] HospitalComment on above:Performed By: #### VITAD #### [facility] [address] [place] [address] Dr. Garfield Fritz (RBC) [Mass/Vol]31.4 g/vMBojrdc72.9-35.2The [facility] HospitalComment on above:Performed By: #### VITAD #### [facility] [address] [place] [address] Dr. Garfield Fritz (RBC) [Entitic vol]90.8 pRGbiyke62.0-99.0The [facility] HospitalComment on above:Performed By: #### VITAD #### [facility] [address] [place] [address] Dr. Garfield Baker #0.9 103/ulCritically high0.3-0.8The [facility] Comment on above:Performed By: #### VITAD #### [facility] [address] [place] [address] Dr. Garfield Bajwaocytes/100 WBC (Bld)13.4 %Critically high1.7-12.0The [facility] HospitalComment on above:Performed By: #### VITAD #### [facility] [address] [place] [address] Dr. Garfield Roman #3.4 103/ulNormal1.4-6.5The [facility] HospitalComment on above:Performed By: #### VITAD #### [facility] [address] [place] [address] Dr. Garfield Acevesutrophils/100 WBC (Bld)52.9 %Llktts84.0-75.0The [facility] HospitalComment on above:Performed By: #### VITAD #### [facility] [address] [place] [address] Dr. Garfield العلي mean volume (Bld) [Entitic vol]12.2 fLNormal9.5-13.5The [facility] HospitalComment on above:Performed By: #### VITAD #### [facility] [address] [place] [address] Dr. Garfield NelsonPLT258 103/iuAthrjf960-854Bsv [facility] HospitalComment on above: Performed By: #### VITAD #### [facility] [address] [place] [address] Dr. Garfield NelsonRBC4.66 106/ulNormal4.20-5.40The [facility] HospitalComment on above:Performed By: #### VITAD #### [facility] [address] [place] [address] Dr. Garfield NelsonWBC6.3 103/ulNormal4.0-11.0The [facility] HospitalComment on above: Performed By: #### VITAD #### [facility] [address] [place] [address] Dr. Garfield NelsonLIPID PROFILEon [id number]-HDL RATIO NORMSEE Doctors HospitalComment on above:Result Comment: 3.3 - 4.4 LOW RISK 4.4 - 7.1 AVERAGE RISK 7.1 - 11.0 MODERATE RISK >11.0 HIGH RISKPerformed By: #### MG, PHOS, CMP #### [facility] [address] [address] [address] Garfield NelsonCholesterol [Mass/Vol]204 mg/dLCritically high<=200The [facility] HospitalComkal[facility] psychiatric hospital on above:Performed By: #### MG, PHOS, CMP #### [facility] [address] [address] [address] Garfield NelsonCholesterol in HDL [Mass/Vol]75 mg/dLCritically tlus92-81Dzk [facility] HospitalComment on above:Performed By: #### MG, PHOS, CMP #### [facility] [address] [address] [address] Garfield NelsonCholesterol in LDL [Mass/Vol]121.0 mg/dLThe [facility] HospitalComkalamazoo psychiatric [facility] on above:Performed By: #### MG, PHOS, CMP #### [facility] [address] [place] [address] Dr. Garfield Aguilaresteranupam.total/Cholesterol in HDL [Mass ratio]2.7 {ratio} NormalThe [facility] HospitalComkalamaz[facility] psychiatric hospital on above:Performed By: #### MG, PHOS, CMP #### [facility] [address] [address] [address] Garfield Romero NORMAL> or = 60 mg/dl - LOW CARDIOVASCULAR RISK <40 mg/dl - HIGH CARDIOVASCULAR RISKThe [facility] HospitalComkal[facility] psychiatric hospital on above:Performed By: #### MG, PHOS, CMP #### [facility] [address] [place] [address] Dr. Garfield NelsonLDL CALC NORMALSEE BELOWThe [facility]vue HospitalComment on above:Result Comment: <100 mg/dl OPTIMAL 100 - 129 mg/dl NEAR OR ABOVE OPTIMAL 130 - 159 mg/dl BORDERLINE HIGH 160 - 189 mg/dl HIGH >190 mg/dl VERY HIGH Performed By: #### MG, PHOS, CMP #### [facility] [address] [place] [address] Dr. Garfield NelsonTriglyceride [Mass/Vol]40 mg/dLNormal<=150The [facility] Comment on above:Performed By: #### MG, PHOS, CMP #### [facility] [address] [address] [address] Garfield NelsonVLDL CALC8.0 mg/dLNormalThe [facility] HospitalComment on above: Performed By: #### MG, PHOS, CMP #### [facility] [address] [address] [address] Garfield NelsonPROF 14(COMP METB)on [id number] [Mass/Vol]3.8 g/dLNormal 3.4-5.0The [facility] HospitalComment on above:Performed By: #### MG, PHOS, CMP #### [facility] [address] [address] [address] Garfield NelsonAlbumin/Globulin [Mass ratio]0.9 {ratio}NormalThe [facility] HospitalComment on above:Performed By: #### MG, PHOS, CMP #### [facility] [address] [place] [address] Dr. Garfield Larson [Catalytic activity/Vol]65 U/NHvmrwi71-989Dfm [facility] HospitalComment on above:Performed By: #### MG, PHOS, CMP #### [facility] [address] [place] [address] Dr. Garfield Arrington [Catalytic activity/Vol]19 U/BSoodhc94-82Bnv [facility] HospitalComment on above:Performed By: #### MG, PHOS, CMP #### [facility] [address] [place] [address] Dr. Garfield Hardy gap [Moles/Vol]10.6 mmol/LNormalUniversity Hospitals St. [facility] Comment on above:Performed By: #### MG, PHOS, CMP #### [facility] [address] [place] [address] Dr. Garfield Melendez [Catalytic activity/Vol]18 U/CEewmqx09-47Cxk [facility] HospitalComment on above:Performed By: #### MG, PHOS, CMP #### [facility] [address] [place] [address] Dr. Garfield NelsonBilirubin [Mass/Vol]0.5 mg/dLNormal0.2-1.0The [facility] Comment on above:Performed By: #### MG, PHOS, CMP #### [facility] [address] [address] [address] Garfield NelsonCalcium [Mass/Vol]8.9 mg/dLNormal8.5-10.1The [facility] Comment on above:Performed By: #### MG, PHOS, CMP #### [facility] [address] [address] [address] Garfield NelsonChloride [Moles/Vol]106 mmol/CZcepcu11-897Qrj [facility] Comment on above:Performed By: #### MG, PHOS, CMP #### [facility] [address] [place] [address] Dr. Garfield NelsonCO2 [Moles/Vol]28.6 mmol/XNhgoot05.0-32.0The [facility] Comment on above:Performed By: #### MG, PHOS, CMP #### [facility] [address] [place] [address] Dr. Garfield NelsonCreatinine [Mass/Vol]0.88 mg/dLNormal0.55-1.02The [facility] HospitalComment on above:Performed By: #### MG, PHOS, CMP #### [facility] [address] [place] [address] Dr. Garfield GrimaldoGFR-AF JORDANIAN>60Normal>=60The [facility] HospitalComment on above:Performed By: #### MG, PHOS, CMP #### [facility] [address] [place] [address] Dr. Garfield GrimaldoGFR-NON AF JORDANIAN>60Normal>=60The [facility] HospitalComment on above:Performed By: #### MG, PHOS, CMP #### [facility] [address] [place] [address] Dr. Garfield NelsonGlobulin (S) [Mass/Vol]4.1 g/dLNormalThe [facility] HospitalComment on above:Performed By: #### MG, PHOS, CMP #### [facility] [address] [place] [address] Dr. Garfield NelsonGlucose [Mass/Vol]93 mg/eRRsbqut41-419GfnUniversity Hospitals St. [facility] Center Comment on above:Performed By: #### MG, PHOS, CMP #### [facility] [address] [place] [address] Dr. Garfield NelsonPotassium [Moles/Vol]4.2 mmol/LNormal3.5-5.1The [facility] Comment on above:Performed By: #### MG, PHOS, CMP #### [facility] [address] [place] [address] Dr. Garfield NelsonProtein [Mass/Vol]7.9 g/dLNormal6.4-8.2[facility] Comment on above:Performed By: #### MG, PHOS, CMP #### [facility] [address] [place] [address] Dr. Garfield NelsonSodium [Moles/Vol]141 mmol/TJgeeqb891-327AqwUniversity Hospitals St. [facility] Center Comment on above:Performed By: #### MG, PHOS, CMP #### [facility] [address] [place] [address] Dr. Garfield NelsonUrea nitrogen [Mass/Vol]22.0 mg/dLCritically high7.0-18.0[facility] Medical CenterComment on above:Performed By: #### MG, PHOS, CMP #### [facility] [address] [place] [address] Dr. Garfield Guerra nitrogen/Creatinine [Mass ratio]25.0 mg/mgNormalThe [facility] HospitalComment on above:Performed By: #### MG, PHOS, CMP #### [facility] [address] [place] [address] Dr. Garfield Lagunas 12-95-0094VOE6.939 uIU/mLNormal0.358-3.740[facility] John Medical CenterComment on above:Performed By: #### MG, PHOS, CMP #### [facility] [address] [address] [address] Garfield NelsonVITAMIN D 25 OHon [id number] D 25-OH34.5 ng/mLNormalUniversity Hospitals St. John Medical CenterComment on above:Performed By: #### VITAD #### [facility] [address] [address] [address] Garfield De La Vega D RANGESSEE BELOWNormSouthview Medical CenterComment on above: Result Comment: <20 ng/mL Vit D deficient 20 - <30 ng/mL Vit D insufficient 30 - 100 ng/mL Vit D sufficient >100 ng/mL Potential ToxicityPerformed By: #### VITAD #### [facility] [address] [place] [address] Dr. Garfield NelsonC3 and C4 COMPLEMENTon 26-17-2022Rlwkdvwddq C3, Bmekb824 mg/dL Meyoxv90-219WauUniversity Hospitals St. John Medical CenterComment on above:Performed By: #### CSUITE #### [facility] [address] [place] [address] Dr. Garfield NelsonComplement C4, Serum19 mg/vTRsoyxz36-32CsuUniversity Hospitals St. [facility] Medical Center Comment on above:Performed By: #### CSUITE #### [facility] [address] [place] [address] Dr. Garfield NelsonMG MAMM SCREEN 3D PATRICA CADon [id number] MAMM SCREEN 3D PATRICA CAD Patient: SIERRA ASHLEY Exam Date: 11/14/2021 : 1965 Gender:F Ordering : DR JUDITH MARTINEZ . Admission #: [id number] Family : Order #: [id number] CLICK HERE TO VIEW EXAM RADIOLOGY REPORT [...] breast cancer at age 60. LOCATION: [facility] BREAST COMPOSITION: Extremely dense, which lowers [...] by: Guanaco Chong MD on 11/14/2021 at 12:25NormalThMcCullough-Hyde Memorial Hospital COMPLEMENT TOTAL (CH50)on 98-44-6903Lzjfmedaxb, Total (CH50)>60Normal>41The [facility] HospitalComment on above:Result Comment: Age Male Female 1 - 30 [...] table above to determine out of range values.Performed By: #### CH50T #### [facility] [address] [place] [address] Dr. Garfield Viramontes AUTO DIFFon [id number] #0.1 103/ulNormal0.0-0.1[facility] John Medical CenterComment on above:Performed By: #### CSUITE #### [facility] [address] [place] [address] Dr. Garfield NelsonBasophils/100 WBC (Bld)0.7 %Normal0.2-2.0[facility] Comment on above:Performed By: #### CSUITE #### [facility] [address] [place] [address] Dr. Garfield Michelle #0.2 103/ulNormal0.0-0.7The [facility] HospitalComment on above: Performed By: #### CSUITE #### [facility] [address] [place] [address] Dr. Garfield Grimaldoosinophils/100 WBC (Bld)2.6 %Normal0.9-7.0The [facility] Comment on above:Performed By: #### AN #### [facility] [address] [place] [address] Dr. Garfield Grimaldorythrocyte distribution width (RBC) [Ratio]14.1 %Vbeohd19.0-15.0 The [facility] HospitalComment on above:Performed By: #### CSBIJALE #### [facility] [address] [place] [address] Dr. Garfield NelsonHematocrit (Bld) [Volume fraction]42.2 %Nxpepw80.0-48.0The [facility] HospitalComment on above:Performed By: #### CSBIJALE #### [facility] [address] [place] [address] Dr. Garfield NelsonHemoglobin (Bld) [Mass/Vol]13.2 g/kYXjxfqm68.0-16.0The [facility] HospitalComment on above:Performed By: #### OSIRISE #### [facility] [address] [place] [address] Dr. Garfield Quiroz #0.02 10e3/ulNormal0.00-0.03The [facility] HospitalComment on above:Performed By: #### OSIRISE #### [facility] [address] [place] [address] Dr. Garfield Quiroz %0.3 %Normal0.0-0.5The [facility] HospitalComment on above: Performed By: #### CSBIJALE #### [facility] [address] [place] [address] Dr. Garfield KellyMPH #2.1 103/ulNormal1.2-3.8The [facility] HospitalComment on above:Performed By: #### CSBIJALE #### [facility] [address] [place] [address] Dr. Garfield Kellymphocytes/100 WBC (Bld)28.2 %Efewqw91.5-60.0The [facility] HospitalComment on above:Performed By: #### OSIRISE #### [facility] [address] [place] [address] Dr. Garfield Leon DIFF REQNONormalThe [facility] HospitalComment on above: Performed By: #### CSUITE #### [facility] [address] [place] [address] Dr. Garfield Fritz (RBC) [Entitic mass]28.3 icXwtbff64.7-34.0The [facility]ierks HospitalComment on above:Performed By: #### CSUITE #### [facility] [address] [place] [address] Dr. Garfield Fritz (RBC) [Mass/Vol]31.3 g/zKPpgazd52.9-35.2The [facility] HospitalComment on above:Performed By: #### CSUITE #### [facility] [address] [place] [address] Dr. Garfield Fritz (RBC) [Entitic vol]90.6 bHWhanjp05.0-99.0The [facility] HospitalComment on above:Performed By: #### CSBIJALE #### [facility] [address] [place] [address] Dr. Garfield Baker #1.0 103/ulCritically high0.3-0.8The [facility] Comment on above:Performed By: #### CSUITE #### [facility] [address] [place] [address] Dr. Garfield Bajwaocytes/100 WBC (Bld)13.9 %Critically high1.7-12.0The [facility] HospitalComment on above:Performed By: #### CSUITE #### [facility] [address] [place] [address] Dr. Garfield Roman #4.0 103/ulNormal1.4-6.5The [facility] HospitalComment on above:Performed By: #### CSUITE #### [facility] [address] [place] [address] Dr. Garfield Acevesutrophils/100 WBC (Bld)54.3 %Amakwk92.0-75.0The [facility] HospitalComment on above:Performed By: #### CSUITE #### [facility] [address] [place] [address] Dr. Garfield العلي mean volume (Bld) [Entitic vol]12.3 fLNormal9.5-13.5The [facility] HospitalComment on above:Performed By: #### CSUITE #### [facility] [address] [place] [address] Dr. Garfield NelsonPLT256 103/sgAsfcgr262-630Oys [facility] HospitalComment on above: Performed By: #### CSUITE #### [facility] [address] [place] [address] Dr. Garfield NelsonRBC4.66 106/ulNormal4.20-5.40The [facility] HospitalComment on above:Performed By: #### CSBIJALE #### [facility] [address] [place] [address] Dr. Garfield NelsonWBC7.4 103/ulNormal4.0-11.0The [facility] HospitalComment on above: Performed By: #### CSUITE #### [facility] [address] [place] [address] Dr. Garfield NelsonMAGNESIUMon 36-28-6768Chevqousw [Mass/Vol]2.0 mg/dLNormal1.8-2.4 The [facility] HospitalComment on above:Performed By: #### MGRAKESH, CMP #### [facility] [address] [place] [address] Dr. Garfield NelsonPHOSPHORUSon 61-28-3282Xgqdvmgal [Mass/Vol]3.4 mg/dLNormal2.6-4.7 The [facility] HospitalComment on above:Performed By: #### MG, PHOS, CMP #### [facility] [address] [place] [address] Dr. Garfield SmithF 14(COMP METB)on [id number] [Mass/Vol]3.9 g/dLNormal 3.4-5.0The [facility] HospitalComment on above:Performed By: #### MG, PHOS, CMP #### [facility] [address] [place] [address] Dr. Garfield NelsonAlbumin/Globulin [Mass ratio]1.0 {ratio}NormalThe [facility] HospitalComment on above:Performed By: #### MG, PHOS, CMP #### [facility] [address] [place] [address] Dr. Garfield TorresP [Catalytic activity/Vol]68 U/POovcpu66-794Zvo [facility] HospitalComment on above:Performed By: #### MG, PHOS, CMP #### [facility] [address] [place] [address] Dr. Garfield Arrington [Catalytic activity/Vol]16 U/HMueetl63-44Lyu [facility] HospitalComment on above:Performed By: #### MG, PHOS, CMP #### [facility] [address] [place] [address] Dr. Garfield Hardy gap [Moles/Vol]9.7 mmol/LNormalThe [facility] HospitalComment on above:Performed By: #### MG, PHOS, CMP #### [facility] [address] [place] [address] Dr. Garfield NelsonAST [Catalytic activity/Vol]17 U/ALvakls68-86Ucm [facility] HospitalComment on above:Performed By: #### MG, PHOS, CMP #### [facility] [address] [place] [address] Dr. Garfield NelsonBilirubin [Mass/Vol]0.4 mg/dLNormal0.2-1.0The [facility] Comment on above:Performed By: #### MG, PHOS, CMP #### [facility] [address] [place] [address] Dr. Garfield NelsonCalcium [Mass/Vol]9.0 mg/dLNormal8.5-10.1The [facility] Comment on above:Performed By: #### MG, PHOS, CMP #### [facility] [address] [address] [address] Garfield NelsonChloride [Moles/Vol]103 mmol/BHodwec04-161Iew [facility] Comment on above:Performed By: #### MG PHOS, CMP #### [facility] [address] [place] [address] Dr. Garfield NelsonCO2 [Moles/Vol]30.2 mmol/XRxftnk76.0-32.0The [facility] Comment on above:Performed By: #### MG, PHOS, CMP #### [facility] [address] [place] [address] Dr. Garfield NelsonCreatinine [Mass/Vol]0.92 mg/dLNormal0.55-1.02The [facility] HospitalComment on above:Performed By: #### MG, PHOS, CMP #### [facility] [address] [place] [address] Dr. Merrill ChangEGFR-AF JORDANIAN>60Normal>=60The [facility] HospitalComment on above:Performed By: #### MG, PHOS, CMP #### [facility] [address] [place] [address] Dr. Garfield GrimaldoGFR-NON AF JORDANIAN>60Normal>=60The [facility] HospitalComment on above:Performed By: #### MG, PHOS, CMP #### [facility] [address] [place] [address] Dr. Garfield NelsonGlobulin (S) [Mass/Vol]3.8 g/dLNormalThe [facility] HospitalComment on above:Performed By: #### MG, PHOS, CMP #### [facility] [address] [place] [address] Dr. Garfield NelsonGlucose [Mass/Vol]101 mg/bLCwifwk12-860Tft [facility] Comment on above:Performed By: #### MG, PHOS, CMP #### [facility] [address] [place] [address] Dr. Garfield NelsonPotassium [Moles/Vol]3.9 mmol/LNormal3.5-5.1The [facility] Comment on above:Performed By: #### MG, PHOS, CMP #### [facility] [address] [address] [address] Garfield NelsonProtein [Mass/Vol]7.7 g/dLNormal6.4-8.2[facility] Comment on above:Performed By: #### MG, PHOS, CMP #### [facility] [address] [address] [address] Garfield NelsonSodium [Moles/Vol]139 mmol/UVrgxuk428-184FdaUniversity Hospitals St. [facility] Comment on above:Performed By: #### MG, PHOS, CMP #### [facility] [address] [address] [address] Garfield NelsonUrea nitrogen [Mass/Vol]16.0 mg/dLNormal7.0-18.0[facility] CenterComment on above:Performed By: #### MG, PHOS, CMP #### [facility] [address] [place] [address] Dr. Garfield Guerra nitrogen/Creatinine [Mass ratio]17.4 mg/mgNoalThe [facility] HospitalComment on above:Performed By: #### MG, PHOS, CMP #### [facility] [address] [place] [address] Dr. Garfield Davila RATE WESTERGRENon [id number] RATE58 mm/hrCritically high <=30The [facility] HospitalComment on above:Performed By: #### CSUITE #### [facility] [address] [place] [address] Dr. Garfield Garcia RANDOM W/MICROSCOPICon [id number] SEENNormalNONE SEENThe [facility] HospitalComment on above:Performed By: #### VITAD #### [facility] [address] [place] [address] Dr. Garfield Sanirubin Ql (U)NegativeNormalNEGATIVEUniversity Hospitals St. [facility] Comment on above:Performed By: #### VITAD #### [facility] [address] [place] [address] Dr. Yilan ChangCASTNONE SEENNormalNONE SEENMercy Memorial Hospital on above:Performed By: #### VITAD #### [facility] [address] [address] [address] Garfield Rodriguez (U)CLEARNormalCLEARUniversity Hospitals St. John Medical CenterComment on above: Performed By: #### VITAD #### [facility] [address] [address] [address] Garfield Ricelor (U)LT. YELLOWNormalYELLOWUniversity Hospitals St. John Medical CenterComment on above:Performed By: #### VITAD #### [facility] [address] [address] [address] Garfield NelsonCrystals LM Nom (Urine sed)NONE SEENNormalNONE SEENUniversity Hospitals St. John Medical CenterComment on above:Performed By: #### VITAD #### [facility] [address] [place] [address] Dr. Merrill ChangEpithelial cells LM Ql (Urine sed)NONE SEENNormalNONE SEEN /RARE [facility] CenterComkalamazoo psychiatric hospital on above:Performed By: #### VITAD #### [facility] [address] [place] [address] Dr. Garfield NelsonGlucose Ql (U)NegativeNormalNEGATIVEMercy Memorial Hospital on above:Performed By: #### VITAD #### [facility] [address] [place] [address] Dr. Garfield NelsonHemoglobin Ql (U)NegativeNormalNEGATIVECoshocton Regional Medical Center on above:Performed By: #### VITAD #### [facility] [address] [place] [address] Dr. Garfield NelsonKetones Ql (U)NegativeNormalNEGATIVEUniversity Hospitals St. John Medical CenterComment on above:Performed By: #### VITAD #### [facility] [address] [place] [address] Dr. Garfield NelsonLEUKOCYTESNegativeNormalNEGATIVEUniversity Hospitals St. John Medical CenterComkalamazoo psychiatric hospital on above:Performed By: #### VITAD #### [facility] [address] [place] [address] Dr. Garfield TaylorCOUSMICK SEENNormalNONE SEENUniversity Hospitals St. John Medical CenterComment on above:Performed By: #### VITAD #### [facility] [address] [place] [address] Dr. Garfield Lacey Ql (U)NegativeNormalNEGATIVEThe [facility] HospitalComment on above:Performed By: #### VITAD #### [facility] [address] [place] [address] Dr. Garfield NelsonpH (U)6.0 [pH]Normal5-9The [facility] HospitalComment on above: Performed By: #### VITAD #### [facility] [address] [place] [address] Dr. Garfield NelsonAvypiUEY0-3Bxvyua1-7Nhc [facility] HospitalComment on above:Performed By: #### VITAD #### [facility] [address] [place] [address] Dr. Garfield NelsonSPEC GRAVITY1.457Jepftc1.005-<=1.025The [facility] HospitalComment on above:Performed By: #### VITAD #### [facility] [address] [place] [address] Dr. Garfield Garcia PROTEINNegativeNormalNEGATIVE/ TRACEThe [facility] on above:Performed By: #### VITAD #### [facility] [address] [place] [address] Dr. Garfield Ordazbilcarson Qn (U)0.2 {Marquise'U}/dLNormal0.2 - 1.0The [facility] HospitalComment on above:Performed By: #### VITAD #### [facility] [address] [place] [address] Dr. Garfield NelsonWBCNONKamla SEENNormalNONE SEENUniversity Hospitals St. John Medical CenterComkalamazoo psychiatric hospital on above: Performed By: #### VITAD #### [facility] [address] [place] [address] Dr. Garfield NelsonC3 and C4 COMPLEMENTon [id number] C3, Rjtqr470 mg/dL Abkdas20-539Dtd [facility] on above:Performed By: #### CSUITE #### [facility] [address] [address] [address] Garfield Camejo C4, Serum18 mg/xNTcktpq37-76CnaUniversity Hospitals St. [facility] Comment on above:Performed By: #### CSUITE #### [facility] [address] [place] [address] Dr. Garfield Camejo TOTAL (CH50)on [id number], Total (CH50)>60 Normal>41The [facility] on above:Result Comment: Age Male Female 1 - 30 [...] table above to determine out of range values.Performed By: #### MG, PHOS, CMP #### [facility] [address] [place] [address] Dr. Garfield Viramontes AUTO DIFFon [id number] #0.1 103/ulNormal0.0-0.1[facility] Hospitalment on above:Performed By: #### VITAD #### [facility] [address] [place] [address] Dr. Garfield NelsonBasophils/100 WBC (Bld)0.6 %Normal0.2-2.0[facility] Comment on above:Performed By: #### VITAD #### [facility] [address] [place] [address] Dr. Garfield Michelle #0.1 103/ulNormal0.0-0.7The [facility] on above: Performed By: #### VITAD #### [facility] [address] [place] [address] Dr. Garfield Grimaldoosinophils/100 WBC (Bld)1.1 %Normal0.9-7.0[facility] Comment on above:Performed By: #### VITAD #### [facility] [address] [place] [address] Dr. Garfield Grimaldorythrocyte distribution width (RBC) [Ratio]14.5 %Wwwqba42.0-15.0 The [facility] HospitalComkalamazoo psychiatric hospital on above:Performed By: #### VITAD #### [facility] [address] [place] [address] Dr. Garfield NelsonHematocrit (Bld) [Volume fraction]40.6 %Otxtgt84.0-48.0The [facility] HospitalComment on above:Performed By: #### VITAD #### [facility] [address] [place] [address] Dr. Garfield NelsonHemoglobin (Bld) [Mass/Vol]12.8 g/cTNbiimz09.0-16.0[facility] on above:Performed By: #### VITAD #### [facility] [address] [place] [address] Dr. Garfield Quiroz #0.02 10e3/ulNormal0.00-0.03The [facility] HospitalComkalamazoo psychiatric hospital on above:Performed By: #### VITAD #### [facility] [address] [place] [address] Dr. Garfield Quiroz %0.2 %Normal0.0-0.5The [facility] on above: Performed By: #### VITAD #### [facility] [address] [place] [address] Dr. Garfield Huynh #1.7 103/ulNormal1.2-3.8The [facility] on above:Performed By: #### VITAD #### [facility] [address] [place] [address] Dr. Garfield Reddyhocytes/100 WBC (Bld)20.0 %Critically low20.5-60.0The [facility] Southment on above:Performed By: #### VITAD #### [facility] [address] [place] [address] Dr. Garfield PraterUAL DIFF REQNONormalThe [facility]ierks HospitalComment on above: Performed By: #### VITAD #### [facility] [address] [place] [address] Dr. Garfield Fritz (RBC) [Entitic mass]28.4 xnXlemzf13.7-34.0The [facility] HospitalComment on above:Performed By: #### VITAD #### [facility] [address] [place] [address] Dr. Garfield Fritz (RBC) [Mass/Vol]31.5 g/bHPgxdbk60.9-35.2The [facility] HospitalComment on above:Performed By: #### VITAD #### [facility] [address] [place] [address] Dr. Garfield Holcomb (RBC) [Entitic vol]90.0 sPJqhirr45.0-99.0The [facility] HospitalComment on above:Performed By: #### VITAD #### [facility] [address] [place] [address] Dr. Garfield Baker #0.9 103/ulCritically high0.3-0.8The [facility] Comment on above:Performed By: #### VITAD #### [facility] [address] [place] [address] Dr. Garfield Bajwaocytes/100 WBC (Bld)10.9 %Normal1.7-12.0[facility] Comment on above:Performed By: #### VITAD #### [facility] [address] [place] [address] Dr. Garfield Roman #5.7 103/ulNormal1.4-6.5The [facility] HospitalComment on above:Performed By: #### VITAD #### [facility] [address] [place] [address] Dr. Garfield Acevesutrophils/100 WBC (Bld)67.2 %Oryorl04.0-75.0The [facility] HospitalComment on above:Performed By: #### VITAD #### [facility] [address] [place] [address] Dr. Yilan ChangPlatelet mean volume (Bld) [Entitic vol]12.1 fLNormal9.5-13.5The [facility] HospitalComment on above:Performed By: #### VITAD #### [facility] [address] [place] [address] Dr. Garfield NelsonPLT249 103/tnPjopok776-671Ncx [facility] HospitalComkalamazoo psychiatric hospital on above: Performed By: #### VITAD #### [facility] [address] [place] [address] Dr. Garfield NelsonRBC4.51 106/ulNormal4.20-5.40The [facility] HospitalComkalamaz[facility] psychiatric hospital on above:Performed By: #### VITAD #### [facility] [address] [place] [address] Dr. Garfield NelsonWBC8.5 103/ulNormal4.0-11.0The [facility] on above: Performed By: #### VITAD #### [facility] [address] [place] [address] Dr. Garfield NelsonMAGNESIUMon 77-60-2684Aahyqvito [Mass/Vol]2.0 mg/dLNormal1.8-2.4 The [facility] HospitalComkalamaz[facility] hospital on above:Performed By: #### CSUITE #### [facility] [address] [place] [address] Dr. Garfield NelsonPHOSPHORUSon 59-28-3203Dkrjdihkk [Mass/Vol]3.6 mg/dLNormal2.6-4.7 The [facility] HospitalComkalamaz[facility] hospital on above:Performed By: #### CSUITE #### [facility] [address] [place] [address] Dr. Garfield NelsonPROF 14(COMP METB)on 30-47-3487Sufcvxe [Mass/Vol]3.8 g/dLNormal 3.4-5.0The [facility] HospitalComment on above:Performed By: #### CSUITE #### [facility] [address] [place] [address] Dr. Garfield NelsonAlbumin/Globulin [Mass ratio]0.9 {ratio}NormalUniversity Hospitals St. John Medical CenterComment on above:Performed By: #### CSUITE #### [facility] [address] [place] [address] Dr. Garfield Larson [Catalytic activity/Vol]73 U/NEqvwki11-895Fvm [facility] HospitalComkalamaz[facility] psychiatric hospital on above:Performed By: #### CSUITE #### [facility] [address] [address] [address] Garfield Arrington [Catalytic activity/Vol]24 U/CZptuka06-22Mdz [facility] HospitalComment on above:Performed By: #### CSUITE #### [facility] [address] [place] [address] Dr. Garfield Hardy gap [Moles/Vol]12.0 mmol/LNormalThe [facility] Comment on above:Performed By: #### CSUITE #### [facility] [address] [place] [address] Dr. Garfield NelsonAST [Catalytic activity/Vol]22 U/HOmjcdk03-90Bsf [facility] Southment on above:Performed By: #### CSUITE #### [facility] [address] [place] [address] Dr. Garfield NelsonBilirubin [Mass/Vol]0.4 mg/dLNormal0.2-1.0The [facility] Comment on above:Performed By: #### CSUITE #### [facility] [address] [place] [address] Dr. Garfield NelsonCalcium [Mass/Vol]8.9 mg/dLNormal8.5-10.1The [facility] Comment on above:Performed By: #### CSUITE #### [facility] [address] [place] [address] Dr. Garfield NelsonChloride [Moles/Vol]102 mmol/JTywnsg51-491Uwo [facility] Comment on above:Performed By: #### CSUITE #### [facility] [address] [place] [address] Dr. Garfield NelsonCO2 [Moles/Vol]27.2 mmol/PTurtrp03.0-32.0The [facility] Comment on above:Performed By: #### CSUITE #### [facility] [address] [place] [address] Dr. Garfield Cortezatinine [Mass/Vol]0.86 mg/dLNormal0.55-1.02The [facility] HospitalComment on above:Performed By: #### CSUITE #### [facility] [address] [place] [address] Dr. Garfield GrimaldoGFR-AF JORDANIAN>60Normal>=60The [facility] HospitalComment on above:Performed By: #### CSUITE #### [facility] [address] [place] [address] Dr. Garfield Wong-NON AF JORDANIAN>60Normal>=60The [facility] HospitalComment on above:Performed By: #### CSUITE #### [facility] [address] [place] [address] Dr. Garfield NelsonGlobulin (S) [Mass/Vol]4.4 g/dLNormalThe [facility] HospitalComment on above:Performed By: #### CSUITE #### [facility] [address] [place] [address] Dr. Garfield NelsonGlucose [Mass/Vol]108 mg/dLCritically pjwc35-547ZeqUniversity Hospitals St. John Medical CenterComment on above:Performed By: #### CSUITE #### [facility] [address] [place] [address] Dr. Garfield NelsonPotassium [Moles/Vol]4.2 mmol/LNormal3.5-5.1The [facility] Comment on above:Performed By: #### CSUITE #### [facility] [address] [place] [address] Dr. Garfield NelsonProtein [Mass/Vol]8.2 g/dLNormal6.4-8.2The [facility] Comment on above:Performed By: #### CSUITE #### [facility] [address] [place] [address] Dr. Garfield NelsonSodium [Moles/Vol]137 mmol/HUxxgbq159-115Egk [facility] Comment on above:Performed By: #### CSUITE #### [facility] [address] [place] [address] Dr. Garfield Guerra nitrogen [Mass/Vol]15.0 mg/dLNormal7.0-18.0The [facility] HospitalComment on above:Performed By: #### CSUITE #### [facility] [address] [place] [address] Dr. Garfield Guerra nitrogen/Creatinine [Mass ratio]17.4 mg/mgNormalThe [facility] HospitalComment on above:Performed By: #### CSUITE #### [facility] [address] [place] [address] Dr. Garfield Davila RATE WESTERGRENon 62-01-1458NNJ RATE11 mm/hrNormal<=30The [facility] HospitalComment on above:Performed By: #### CSUITE #### [facility] [address] [place] [address] Dr. Garfield Garcia RANDOM W/MICROSCOPICon [id number] SEENNormalNONE SEENUniversity Hospitals St. John Medical CenterComment on above:Performed By: #### UAMIC #### [facility] [address] [place] [address] Dr. Garfield Ayala Ql (U)NegativeNormalNEGATIVEUniversity Hospitals St. [facility] Comment on above:Performed By: #### UAMIC #### [facility] [address] [place] [address] Dr. Garfield Morales SEENNormalNONE SEENUniversity Hospitals St. John Medical CenterComment on above:Performed By: #### UAMIC #### [facility] [address] [place] [address] Dr. Garfield Rodriguez (U)CLEARNormalCLEARThe [facility] HospitalComment on above: Performed By: #### UAMIC #### [facility] [address] [place] [address] Dr. Garfield Blancas (U)LT. YELLOWNormalYELLOWThe [facility] HospitalComment on above:Performed By: #### UAMIC #### [facility] [address] [address] [address] Garfield NelsonCrystals LM Nom (Urine sed)NONE SEENNormalNONE SEENUniversity Hospitals St. John Medical CenterComment on above:Performed By: #### UAMIC #### [facility] [address] [address] [address] Merrill ChangEpithelial cells LM Ql (Urine sed)FEWAbnormalNONE SEEN /RAREThe [facility] HospitalComment on above:Performed By: #### UAMIC #### [facility] [address] [address] [address] Garfield NelsonGlucose Ql (U)NegativeNormalNEGATIVEUniversity Hospitals St. John Medical CenterComment on above:Performed By: #### UAMIC #### [facility] [address] [place] [address] Dr. Garfield NelsonHemoglobin Ql (U)NegativeNormalNEGATIVECoshocton Regional Medical Center on above:Performed By: #### UAMIC #### [facility] [address] [place] [address] Dr. Garfield NelsonKetones Ql (U)NegativeNormalNEGATIVEUniversity Hospitals St. John Medical CenterComment on above:Performed By: #### UAMIC #### [facility] [address] [address] [address] Garfield NelsonLEUKOCYTESNegativeNormalNEGATIVEUniversity Hospitals St. John [facility] on above:Performed By: #### UAMIC #### [facility] [address] [address] [address] Garfield NelsonMUCOUSNONE SEENNormalNONE SEENUniversity Hospitals St. John Medical CenterComment on above:Performed By: #### UAMIC #### [facility] [address] [address] [address] Garfield Fitzpatricktrite Ql (U)NegativeNormalNEGATIVEUniversity Hospitals St. John Medical CenterComment on above:Performed By: #### UAMIC #### [facility] [address] [address] [address] Garfield NelsonpH (U)6.0 [pH]Normal5-9The [facility] HospitalComment on above: Performed By: #### UAMIC #### [facility] [address] [place] [address] Dr. Garfield NelsonRBCNONE SEENAbnormal0-2The [facility] HospitalComment on above: Performed By: #### UAMIC #### [facility] [address] [place] [address] Dr. Garfield NelsonSPEC GRAVITY1.631Xwdoer6.005-<=1.025The [facility] HospitalComment on above:Performed By: #### UAMIC #### [facility] [address] [place] [address] Dr. Garfield Garcia PROTEINNegativeNormalNEGATIVE/ TRACEThe [facility] Comment on above:Performed By: #### UAMIC #### [facility] [address] [place] [address] Dr. Garfield Ordazbilreynaldogen Qn (U)0.2 {Marquise'U}/dLNormal0.2 - 1.0The [facility] HospitalComment on above:Performed By: #### UAMIC #### [facility] [address] [place] [address] Dr. Garfield BarrowBCNONE SEENNormalNONE SEENThe [facility] HospitalComment on above: Performed By: #### UAMIC #### [facility] [address] [place] [address] Dr. Garfield Nelson Vital Signs Date TimeVital SignValuePerforming AalxqjojqZdtdzhdv81-75-4832 11:13-0500Body ccvazm[address] Work Phone: [facility] HealthcareWkbdcdhdkv59-96-2916 11:13-0500Body mass index (BMI) [Ratio]19.02 kg/m2[address] Work Phone: [facility] HealthcareSjhgorhocu41-05-5266 11:13-0500Body .[address] Work Phone: [facility] HealthcareHgywhoggdw43-88-2112 11:13-0500Diastolic blood mm[Hg][address] ST[address] Work Phone: noSaint [facility]–SmithvilleBbxrvmtrcg90-05-3206 11:13-0500Systolic blood amezonsy754 mm[Hg]Stephanie STRE[address] Work Phone: noSaint Luke[facility] North Hospital–SmithvilleFujnoqirjp19-60-1372 11:00-0400Body .48 cmBenjamin Ball Other [employer] Other 479801-04-2422 11:00-0400Body mass index (BMI) [Ratio] 19.02 kg/d6Hkovjvmm Ball Other [employer] Other 10-19-2023 11:00-0400Body edybdo18.17 kgBenjamin Ball Other [employer] Other 977327-84-2282 11:00-0400Diastolic blood nidujkwr68 mm[Hg] Rich Ball Other [employer] Other 10-19-2023 11:00-0400Respiratory rate12 /minBenjamin Ball Other [employer] Other 10-19-2023 11:00-0400Systolic blood npdbdbfi977 mm[Hg] Rich Ball Other [employer] Other Encounters Encounter DateEncounter TypeCare ProviderFacilityStart: 01-04-2024 End: 27-24-3116Zzjzlu flowsPorsha STREET Work Phone: [facility] BCP OBStart: 01-04-2024 End: 56-33-9284Triicp flowsheetStephanie STREET Work Phone: [facility] BCP OBStart: 01-04-2024 End: 54-13-6332Epavucztb Result EncounterStephanie STREET Work Phone: noms External Department UnsolicitedStart: 01-04-2024 End: 29-85-7949Gbsplto encounter procedureAmy Inna STREET Work Phone: noms HealthcareStart: 01-04-2024 End: 02-85-8267Zphescho preventive med est patient 40-[address]yrsA[address] Work Phone: [facility] BCP OBComment on above:Postmenopausal state; Well woman exam with routine gynecological examStart: 01-04-2024 End: 08-14-7944yhdltwqucjTLU INNANot AvailableStart: 12-18-2023 End: 88-79-9164Kkevatgjv Result EncounterAmy Inna STREET Work Phone: noms External Department UnsolicitedStart: 12-18-2023 End: 05-57-9775Mjhwqlinw Result EncounterAmy Inna STRE[address] Work Phone: noms External Department UnsolicitedStart: 12-18-2022 End: 88-47-0162volxraalovEfbggell Ball Other [employer] Other Start: 06-39-5494Fjydlpaeg for general adult medical examination without abnormal findingsBenjamin BallFPG Ball Medical ClinicStart: 98-29-6947Pujtizdy preventive med est patient 40-64yrsBenjalotus SeguraFPG Ball Medical ClinicStart: 12-05-2022 End: 85-37-1918axvirnajawPvxdggyx Ball Other [employer] Other Start: 57-69-0414Hkotwza evaluation of patient and reportBenjalotus BallFPG Ball Medical ClinicStart: 05-12-2022 End: 92-22-3363wmnwhsrbfwTN MATTHEW MORROWFacility:L1Wbexh: 04-11-2022 End: 55-64-7684exyzewhubcKiospgkz Ball Other [employer] Other Start: 66-99-6276Tfvlxd outpatient visit 15 minutes Rich BallFPG [facility] Medical ClinicStart: 03-11-2022 End: 93-01-0672svuxtxvfyzAdkcmgex Ball Other noGrapevine Talk [employer] Other Start: 32-05-7721Fewhmv outpatient visit 15 minutes Rich Segura Medical ClinicStart: 02-11-2022 End: 20-79-8742ttwodiqxdzXB DOCTOR MISCFacility:W0Klbko: 01-02-2022 End: 10-49-1660rzbfoxrpwvUimc L ObermeyerFacility:[facility] Toledotart: 01-02-2022 End: 08-69-8234cxizwzarufDC Rich Segura Work Phone: [facility] Work Phone: Start: 01-02-2022 End: 43-82-1971Zalzecc encounter procedureDO Rich Segura Work Phone: [facility]-Electrodiagnostics Start: 88-28-8987zkvsstgzedKopswsee:9090Start: 54-66-7843Aoiyonzct for general adult medical examination without abnormal findingsDR RICH SEGURAOhioHealth Riverside Methodist Hospitaltart: 12-17-2021 End: 61-47-6954mmdoaijgbyFS RICH SEGURAFacility:T4Eyrhi: 12-17-2021 End: 53-42-4065Isauhhibu for general adult medical examination without abnormal findingsDR RICH SEGURAFacility:E2Nodzs: 12-16-2021 End: 88-65-2360yyjrxqiiybZM JUDITH MARTINEZ .Facility:U7Naatc: 12-16-2021 Gynecological examination normalBebeto Segura Other [employer] Other Start: 73-54-8231Ilace health examinationBebeto Segura Other [facility] [employer] Other Start: 11-14-2021 End: 53-18-9712lrctdhmmagTO JUDITH MARTINEZ .Facility:G7Gafry: 11-12-2021 End: 60-98-1953odblpuadkaCZ DOCTOR MISCFacility:E2Vnxlf: 08-07-2021 End: 36-26-8234aivgxcdgjsTN DOCTOR MISCFacility:H1 Procedures DateProcedureProcedure DetailPerforming ClinicianStart: 69-84-3866JSU,APTIMA HPV,AGE GDLNStephanie STREET Work Phone: Start: 11-19-1752Ufpcxkbfosd observation [Identifier] in Cervix by Cyto stainStephanie STREET Work Phone: Start: 04-51-4470JD TOMOSYNTHESIS SCREENING BIStephanie STREET Work Phone: Start: 41-11-1117UdffersopgoCek Ramey PA Work Phone: Start: 93-71-3824Gurwnpg examination of patient Rich Segura Other Depression screeningBenjamin Ball Other Screening for malignant neoplasm of breastBenjamin Ball Other End: 91-42-7090Hmcypsvla for malignant neoplasm of breastBenjamin Ball Other Screening for malignant neoplasm of breastBenjamin Ball Other Screening for malignant neoplasm of colonBenjamin Ball Other End: 36-96-1258Dgbtbgjga for osteoporosisBenjamin Ball Other Plan of Treatment DateCare ActivityDetailAuthorStart: 71-53-0615Gmbqdefhj for malignant neoplasm of cervixNOMS HealthcareStart: 01-10-2025 End: 81-10-6879Xsvjvxx encounter procedureNOMS BCP OBStart: 24-14-8848Oeretetha for malignant neoplasm of breastMammogramNOMS HealthcareStart: 97-56-9152IKDIS- 19 Vaccine ( season)COVID-19 Vaccine ( season)[facility]OM[facility] HealthcareStart: 92-63-5007Dpajfhdep vaccinationInfluenza Vaccine (#1)[facility] HealthcareStart: 01-04-2024 End: 48-11-6994Ixlmgzk encounter /04/2024 11:00 AM EST Office Visit [facility] [address] [place] [phone] Stephanie Reed PA [address] [place] [address] [facility] OBComment on above:ArrivedStart: 11-01-2023 Influenza vaccinationInfluenza Vaccine (#1)[facility] HealthcareStart: 12-01-1995 Screening for malignant neoplasm of cervixNOMS HealthcareStart: 1986 Screening for malignant neoplasm of cervixPap SmearTOOELE VALLEY HOSPITAL HealthcareStart: 35-26-0605Libgosnsy B Vaccines (1 of 3 - 19+ 3-dose series)Hepatitis B Vaccines (1 of 3 - 19+ 3-dose series)[facility] HealthcareStart: 17-57-8177OAyT/Tdap/Td Vaccines (1 - Tdap)DTaP/Tdap/Td Vaccines (1 - Tdap)[facility] HealthcareStart: 77-47-7310BFW Vaccines (1 of 1 - Standard series)MMR Vaccines (1 of 1 - Standard series)[facility] HealthcareStart: 11-87-5067Xmclpdolp for malignant neoplasm of colonNOMS HealthcareTHIN PREP TIS PAP AND HR HPV DNATHIN PREP TIS PAP AND HR HPV DNA Pathology and Cytology Routine Well woman exam with routine gynecological exam Ordered: 01/04/2024[facility] Work Phone: comment on above:Ordered: 01/04/2024 Immunizations Immunization DateImmunizationNotesCare YtzsfvehJjgpgvyv39-17-2479rfmmdomec virus vaccine, unspecified formulationStephanie STREET Work Phone: [facility] HealthcareAcitzjwqmx38-58-6345mxtjrhxrq, injectable, quadrivalent, preservative freeRich Segura Other [employer] Other [id number] virus vaccine, split virus (incl. purified surface antigen)Rich Segura Other [employer] Other [id number]-62 mRNA, Comirnaty (Pfizer)DO Rich Segura Work Phone: [facility]10-06-2021influenza virus vaccine, split virus (incl. purified surface antigen)Rich Jose Other [employer] Other [id number]-36 mRNA, Comirnaty (Pfizer)DO Rich Segura Work Phone: [facility]02-12-2021COVID-19 mRNA, Comirnaty (Pfizer)DO Rich Segura Work Phone: [facility]10-08-2020influenza virus vaccine, split virus (incl. purified surface antigen)Rich Segura Other [employer] Other 11379884-19-1142neulpnypjiee polysaccharide vaccine, 23 valentBenleilotus Segura Other [employer] Other 10-549684-57-7979bsuemsouq virus vaccine, split virus (incl. purified surface antigen)Rich Segura Other [employer] Other 10-870083-94-9086vmmwhqmjp virus vaccine, split virus (incl. purified surface antigen)Rich Segura Other [employer] Other 10-695751-31-8922wuifbxp and diphtheria toxoids, adsorbed, preservative free, for adult use (5 Lf of tetanus toxoid and 2 Lf of diphtheria toxoid)Rich Segura Other [facility] [employer] Other 10-457803-75-0200mqagxue and diphtheria toxoids, adsorbed, preservative free, for adult use (5 Lf of tetanus toxoid and 2 Lf of diphtheria toxoid)Rich Segura Other [employer] Other 09-829573-95-7559jxmtvnsddfba conjugate vaccine, 13 valent Rich Segura Other [employer] Other 10-137696-93-5360plnsyfa and diphtheria toxoids, adsorbed, preservative free, for adult use (5 Lf of tetanus toxoid and 2 Lf of diphtheria toxoid)Rich Segura Other [employer] Other 10-801195-85-3261gmyzttu and diphtheria toxoids, adsorbed, preservative free, for adult use (5 Lf of tetanus toxoid and 2 Lf of diphtheria toxoid)Rich Segura Other [employer] Other Payers DatePayer CategoryPayerPolicy [id number] Health InsuranceGENERIC COMMERCIAL [id number] .1.326419.3.57[id number] .1.331909.3.57[id number] 2.16.840.1.908713.3.57[id number] 2.16.840.1.925297.3.57[id number] 2.16.840.1.400187.3.57[id number] 2.16.840.1.666247.3.57[id number] 2.16.840.1.329492.3.57[id number] 2.16.840.1.591782.3.579.[id number] 2.16.0.1.125312.3.579.[id number] 2.16.840.1.337858.19 [id number] 2..840.1.069039.3.579.2.531 Social History DateTypeDetailFacilityStart: 99-53-5099Bbtumfr smoking status NHISNever smoked tobacco (finding)[facility] Toledotart: 35-51-2016Flr Assigned At [facility] Hospitalex Assigned At [facility] [employer] Other Tobacco smoking status NHISTobacco smoking consumption unknownT[facility]ELE VALLEY [facility] HealthcareStart: 28-42-1990Ylq assigned at [facility] lenoirNot on [facility] HealthcareStart: 41-22-0047EhcAcddgdRXKC Healthcare History of Present illness Narrative 01-04-2024 Note Date & RoyrFzpeBnqjvywk69-37-9336 History of Present illness Narrative* JAD Granados - 01/04/2024 11:00 AM EST Reason for Appointment: Patient ID: Sierra Ashley is a 58 y.o. female who presents [...] nursing note reviewed. Exam conducted with a splitter hand present. Vitals: There is no height or [...] behalf of: JAD Granados documented in this encounterCitizens Memorial Healthcare Evaluation note 12-18-2022 Note Date & IxlpUyujAnzslcno19-71-5259 Evaluation note* Encounter Date Diagnosis Assessment Notes Treatment Notes Treatment Clinical Notes Nov, Age-related osteopor osis without current pathological fracture (ICD-10 - M81.0) Ca and Vit D supplements. Continue weight bearing exercises Drug holiday from bisphosphonates Due for DEXA next year Nov,Wellness examination (ICD-10 - Z00.00)Healthy diet and exercise. Reviewed age-appropriate preventive testing recommended. Nov,rogressive systemic sclerosis (ICD-10 - M34.0)Stable, continue present treatment. f/u Rheumatology Nov,Raynaud''s phenomenon without gangrene (ICD-10 - I73.00)No ischemic ulcers. Protect from cold weather exposure. No need for nitrates or CCB at this time. Nov,ERD (gastroesophageal reflux disease) (ICD-10 - K21.9)Diet instructions: Smaller portions, avoid eating and laying flat, avoid eating or drinking prior to bedtime. Nov,Immunosuppressed status (ICD-10 - D84.9)UTD w/ vaccines. Recommend new COVID No s/s of intercurrent infection Nov,Screening mammogram for breast cancer (ICD-10 - Z12.31)Instructed patient on monthly SBE and yearly mammograms. [employer] Other Evaluation note 04-11-2022 Note Date & CwahKjfgNmpklboa97-98-2403 Evaluation note* Encounter Date Diagnosis Assessment Notes Treatment Notes Treatment Clinical Notes Apr, Acute non-recurrent maxillary si nusitis (ICD-10 - J01.00) Instructed to use Robitussin or Mucinex for cough, saline or Flonase NS for congestion, Tylenol forpain and fever. Apr,Immunosuppressed status (ICD-10 - D84.9)Monitor for persistent high temperature, spread of symptoms to lungs, SOB or CP. [employer] Other Evaluation note 03-11-2022 Note Date & HuanJuzkRiigkntc50-86-6867 Evaluation note* Encounter Date Diagnosis Assessment Notes Treatment Notes Treatment Clinical Notes Mar, Acute bronchitis due to other sp ecified organisms (ICD-10 - J20.8) Instructed to use Robitussin or Mucinex for cough, saline or Flonase NS for congestion, Tylenol forpain and fever. 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 Immunosuppressed due to disease and treatment, empiric treatment of any infection necessary [employer] Other Evaluation note Note Date & TypeNoteFacilityEvaluation noteNo assessment information available [facility] Work Phone: Evaluation note Note Date & TypeNoteFacilityEvaluation noteNo InformationNort [employer] Other Evaluation note Note Date & TypeNoteFacilityEvaluation note* Diagnosis Postmenopausal state Asymptomatic postmenopausal status (age-related) (natural) Well woman exam with routine gynecological exam Routine gynecological examination documented in this encounter [facility] History general Narrative - Reported Note Date & TypeNoteFacilityHistory general Narrative - Reported* Type Description Date Medical History Scleroderma Medical HistoryBreast cancer screening by mammogramMedical HistoryProgressive systemic sclerosisMedical HistoryRaynaud''s phenomenon without gangreneMedical HistoryAge-related osteoporosis without current pathological fractureSurgical HistoryHYSTERECTOMYHospitalization Historysee surgical history [employer] Other Chief Complaint and Reason for Visit Chief Complaint j84.10 i27.0 r06.02 r06.00 m35.9 z79.899 Family History Relationship Condition Age at Onset Recorded Date/T sam Not Specified Vascular disorder Unknown Diabetes mellitusUnknownHeart diseaseUnknownfatherIrritable bowel syndrome Unknown Advance Directives Advance Directive Response Recorded Date/ Time Advance Directives No December 11:15am Summary Purpose Additional Source Comments Care Teams (unrecognized sec tion and content) Team Status: Inactive Member Role Status Dates Rich Segura DO Primary Care Provider Active Patricia Ornelas STONE SETTER APPRENTICE-CAttending ProviderActive Team Status: Active Member Role Status Dates Rich Segura DO Primary Care Provider Active Team MemberRelationshipSpecialtyStart DateEnd Date Rich Segura MD [address] [place] [address] PCP - GeneralInternal Sercooqq75/30/23Team MemberRelationshipSpecialtyStart Date End Date Rich Segura MD [address] [place] [address] PCP - GeneralInternal Uwxnjrzp78/30/23Te MemberRelationshipSpecialtyStart Date End Date Rich Segura MD [address] [place] [address] PCP - GeneralInternal Ibshwxpm61/30/23Team MemberRelationshipSpecialtyStart Date End Date Rich Segura DO PCP - GeneralInternal Yyoyojpm31/30/23 Goals (unrecognized section and content) Goals may be documented in a n alternate sectionNo InformationNo InformationNo InformationNo Information INFORMATION SOURCE (unrecogn ized section and content) DATE CREATED AUTHOR 04/05/2022 [facility] DATE CREATED AUTHOR AUTHOR'S ORGANIZ ATION 04/05/2022 [facility] DATE CREATED AUTHOR AUTHOR'S ORGANIZ ATION 05/19/[address] [facility] DATE CREATED AUTHOR AUTHOR'S ORGANIZ ATION 01/05/2024 [facility] EPIC REASON FOR VISIT (unrecogniz ed section and content) ReasonCommentsWell Women Visit FOR RECORDS PERTAINING TO PATIENTS [...] BE BASED ON THE PRIMARY CLINICAL RECORDS. [facility]. provides no warranty or guarantee of the accuracy or completeness of information in this document.
--- OUTSIDE RECORDS SUMMARY | 2025-01-10 19:17 | XMS_ITS | Patient Health Record ---
Author Organization [facility] [place] Address [address] [place] [address] Support Name Relationship Address Phone Noah Ashley Emergency Contact Unknown Madeline Ashley Guarantor Unknown [phone] Reason For Referral No Information Plan Of Treatment No Information Insurance Providers Payer Name Payer Address Payer Phone Subscriber Number Group Number Insured Name Patient Relationship to Insured Coverage Start Date Coverage End Date SELF PAY ON PATIENT DEMOGRAPHICS Rashawn Ashley - patient is the [id number]/29/2007
--- OUTSIDE RECORDS SUMMARY | 2025-01-10 19:17 | XMS_ITS | Encounter Summary ---
Author Organization [facility] Address [address] [place] [address] Care Team Providers Care House Mover Name Role Phone Rich Garcia DO Primary Care Provider [phone] Encounter Details DateTypeDepartmentCare Team (Latest Contact Info)Ignikmkbifi14/18/2024Clinisync Result Encounter [facility] External Department Unsolicited Stephanie Reed PA [address] [place], [facility] Social History Tobacco UseTypesPacks/DayYears UsedDateSmoking Tobacco: Never Assessed CommentsUnknownSex and Gender InformationValueDate RecordedSex Assigned at Not on fileLegal RivBdbahc89/15/2023 7:21 PM EDTGender IdentityNot on fileSexual OrientationNot on filedocumented as of this encounter Plan of Treatment DateTypeDeparthelen devos children's hospitalCare Team (Latest Contact Info)Djzalqngect97/18/2026 11:00 AM ESTProcedure Visit NOMPur[facility] FARRELL [address] [place] [place] [address] Stephanie Reed PA [address] [place], [facility] documented as of this encounter Procedures Procedure NamePriorityDate/TimeAssociated DiagnosisCommentsMM TOMOSYNTHESIS SCREENING BI12/18/2023 12:48 PM EDT documented in this encounter Results * MM TOMOSYNTHESIS SCREENING BI (12/18/2023 12:48 PM EDT)Anatomical Region LateralityModalityOtherSpecimen (Source)Anatomical Location / Laterality Collection Method / VolumeCollection TimeReceived Time12/18/2023 12:48 PM EDT Narrative 12/18/2023 12:49 PM EDT [facility] ?[address] ? [place] [address] ? Mammography Report ? Signed ? Patient: GREEN,MADELINE J ?MR#: [id number] ?? : 1965 ?Acct:[id number] ?? Age/Sex: 58 / F ?ADM Date: 12/18/23 ?? Loc: MAMMO ? Attending Dr: Stephanie Reed ? Ordering Physician: Stephanie Reed ?Results: ? Date of Service: 12/18/23 ?Follow Up: ? Procedure(s): MM tomosynthesis screening BI ?? Accession Number(s): [id number] ? cc: Stephanie Reed; Physician,Non-Staff M.D. ? Patient Name: ? MADELINE GREEN ? MR#: [id number] ? : 1965 ? Exam Date: 12/18/2023 ?? Ordering Doctor: JAD Reed . ? RADIOLOGY REPORT ? PROCEDURE: ? MM TOMOSYNTHESIS SCREENING BI ? COMPARISON: ? MG MAMM SCREEN 3D PATRICA CAD, 11/14/2021. ??MM TOMOSYNTHESIS ?? SCREENING BI, 12/05/2022. ? INDICATIONS: ? Screening ? Calculator Name ? NCI Breast Cancer Risk Assessment Tool ?? 5 Year Breast Cancer Risk ? 3.40% ?? Lifetime Breast Cancer Risk ? 18.40% ?? Personal Breast Cancer ?No ?? Personal Ovarian Cancer ? No ?? Treatments ? None ?? Family Cancers ? Sister with breast cancer at age 69; Aunt-maternal with ?? breast cancer at age ??60; Aunt-maternal with breast cancer at age ??60. ? LOCATION: ? [facility] ? BREAST COMPOSITION: ? The breasts are extremely dense, which lowers the ?? sensitivity of mammography. ? FINDINGS: ? DIAGNOSTIC CATEGORY 2--BENIGN FINDING. NO CHANGE FROM COMPARISON. ??Scattered ?? benign-appearing nodules are present. ??Scattered benign-appearing ?? calcifications are present. ? RIGHT BREAST: ??No significant suspicious finding. ? LEFT BREAST: ??No significant suspicious finding. ? RECOMMENDATIONS: ? ROUTINE MAMMOGRAM AND CLINICAL EVALUATION IN 12 MONTHS. ? PLEASE NOTE: ??A NORMAL MAMMOGRAM DOES NOT EXCLUDE THE POSSIBILITY OF BREAST ?? CANCER. ??A CLINICALLY SUSPICIOUS PALPABLE LUMP SHOULD BE BIOPSIED. ? Dictated by: Erik Chong MD on 12/18/2023 at 12:47 ? Approved by: Erik Chong MD on 12/18/2023 at 12:48 ? Dictated By: ?Erik Chong M.D. ? Signed By: ?12/18/23 1249 ? DD/ 1248 ? TD/TT: ? Travel Physical Therapist: Procedure Note Radiology, Radiologist, MD - 12/18/2023 [place] [address] Mammography Report Signed Patient: MADELINE ALBERTS JMR#: [id number] : 1965Acct:[id number] Age/Sex: 58 / FADM Date: 12/18/23 Loc: MAMMO Attending Dr: Stephanie Reed Ordering Physician: Stephanie Constantinoults: Date of Service: 12/18/23Follow Up: Procedure(s): MM tomosynthesis screening BI Accession Number(s): [id number] cc: Stephanie Reed; Physician,Non-Staff M.DOsito Patient Name: MADELINE ALBERTS MR#: [id number] : 1965 Exam Date: 12/18/2023 Ordering Doctor: [...] breast cancer at age 60. LOCATION: [facility] BREAST COMPOSITION: The breasts are extremely [...] M.D. Signed By:12/18/23 1249 DD/ 1248 TD/TT: Travel Physical Therapist: Authorizing ProviderResult TypeResult StatusAmy Brianna PACLINISYNC IMAGINGFinal Result documented in this encounter Visit Diagnoses Not on filedocumented in this encounter Care Teams Team MemberRelationshipSpecialtyStart DateEnd Date Rich Garcia DO PCP - GeneralInternal Ppikatko55/30/23documented as of this encounter
--- OUTSIDE RECORDS SUMMARY | 2025-01-10 19:17 | XMS_ITS | Encounter Summary ---
Author Organization [facility] Address [address] [facility] [place] [address] Care Team Providers Care Corrosion Control Fitter Name Role Phone Rich Garcia DO Primary Care Provider [phone] Encounter Details DateTypeDepartmentCare Team (Latest Contact Info)Qholeyuzyct43/11/2025amboo flowsheet SULEMA FARRELL [address] [place] [address] [place] [address] Stephanie Reed PA [address] [facility] [address] [place], [facility]11 Social History Tobacco UseTypesPacks/DayYears UsedDateSmoking Tobacco: Never Assessed CommentsNoSex and Gender InformationValueDate RecordedSex Assigned at BirthNot on fileLegal XsdHcqjim47/15/2023 7:21 PM EDTGender IdentityNot on fileSexual OrientationNot on filedocumented as of this encounter Plan of Treatment DateTypeDepartmentCare Team (Latest Contact Info)Egyjqlmhawv34/18/2026 11:00 AM ESTProcedure Visit SULEMA FARRELL [address] [facility] [address] Stephanie Reed PA [address] [facility] [address] [place], [facility]11 documented as of this encounter Visit Diagnoses Not on filedocumented in this encounter Care Teams Team MemberRelationshipSpecialtyStart DateEnd Date Rich Garcia DO PCP - GeneralInternal Xtbqpaor32/30/23documented as of this encounter
--- OUTSIDE RECORDS SUMMARY | 2025-01-10 19:17 | XMS_ITS | Clinical Summary ---
Author Organization [facility] Address [address] [facility] [place] [address] Care Team Providers Care Privacy Compliance Manager Name Role Phone Rich Garcia DO Primary Care Provider [phone] Allergies Active AllergyReactionsCriticalityNoted DateCommentsPenicillamineRashLow 01/04/2024 Medications MedicationSigDispense QuantityRefillsLast FilledStart DateEnd DateStatus methotrexate 2.5 MG tablet Take 2.5 mg by mouth 3 (three) doses per week. Take doses 12 (twelve) hours apart from each other..Follow directions carefully, and ask to explain any part you do not understand. Take exactly as directed.Active folic acid (Folvite) 1 MG tablet Take 1 mg by mouth in the morning.Active NIFEdipine CC (Adalat CC) 30 MG 24 hr tablet Take 30 mg by mouth in the morning. Take before meals. Do not crush, chew, or split. .Active Calcium Carb-Cholecalciferol (Calcium 600 + D) 600-5 MG-MCG tablet Take by mouth.Active denosumab (Prolia) 60 MG/ML solution prefilled syringe EVERY 6 TIFPJC554Active Encounters DateTypeDepartmentCare IpvlIcadynmeyez93/11/2025 11:00 AM ESTOffice Visit [facility] Jose FARRELL [address] [place] [address] Stephanie Keith PA Well woman exam with routine gynecological exam; Breast cancer screening by mammogram; Postmenopausal state01/10/2025amboo flowsheet [facility] Jose FARRELL [address] [facility] [place] [address] Stephanie Keith PA 12/19/2024linisync Result Encounter [facility] External Department Unsolicited Stephanie Keith PA from Last 3 Months Social History Tobacco UseTypesPacks/DayYears UsedDateSmoking Tobacco: Never Assessed CommentsNoSex and Gender InformationValueDate RecordedSex Assigned at BirthNot on fileLegal TbrVigwed57/15/2023 7:21 PM EDTGender IdentityNot on fileSexual OrientationNot on file Last Filed Vital Signs Vital SignReadingTime TakenCommentsBlood Xhhqzwqp386/80103/12/2024 11:16 AM EST Pulse--Temperature--Respiratory Rate--Oxygen Saturation--Inhaled Oxygen Concentration--Yrfsdf10.4 kg (106 lb 12.8 oz)01/10/2025 11:16 AM OYGKpxmfz910.5 cm (5' 2 )01/04/2024 11:13 AM ESTBody Mass Index19.5301/04/2024 11:13 AM EST Plan of Treatment DateTypeDepartmentCare Team (Latest Contact Info)Uaebxsetnyj38/18/2026 11:00 AM ESTProcedure Visit NOMPurvi Garcia OBGYChelsea [address] [facility] [place] [address] Stephanie Keith PA [address] [facility] [address] [place], [place] [address] Health MaintenanceDue DateLast DoneCommentsCT Sokeputjcicc49/01/1966Colonoscopy 1965Colorectal Cancer Tzsexkdmg30/01/1966FIT-DNA1965FIT1965 FOBT1965 8574Drvxlwsrkwmqy81/01/1966COVID-19 Vaccine ( season) /, 02/02/2024, 01/06/2023, Additional history existsMammogram , 12/18/2023, 12/05/2022ervical Cancer Brsatqggg27/04/2029 HPV/Lxbbzn2301/03/2029Pap SmearInfluenza VaccineCompleted 11/17/2024, 12/28/2023, 12/05/2022, Additional history existsPneumococcal Vaccine: Pediatrics (0 to 5 Years) and At-Risk Patients (6 to 64 Years)Aged Out No longer eligible based on patient's age to complete this topic Procedures Procedure NamePriorityDate/TimeAssociated DiagnosisCommentsMM TOMOSYNTHESIS SCREENING BI12/19/2024 2:19 PM EDT PAP STCSILjaocei66/04/2024 12:00 AM ESTfrom Last 3 Months or Most Recently Relevant to Health Maintenance Results * MM TOMOSYNTHESIS SCREENING BI (12/19/2024 2:19 PM EDT)Anatomical Region LateralityModalityOtherSpecimen (Source)Anatomical Location / Laterality Collection Method / VolumeCollection TimeReceived Time12/19/2024 2:19 PM EDT Narrative 12/19/2024 2:21 PM EDT [facility] ?[address] ? [place] [address] ? Mammography Report ? Signed Patient: ARISTEOSIERRA J ?MR#: [id number] : 1965 ?Acct:[id number] Age/Sex: 59 / F ?ADM Date: 12/19/24 Loc: MAMMO Attending Dr: Stephanie Keith Ordering Physician: Stephanie Keith ?Results: Date of Service: 12/19/24 ?Follow Up: Procedure(s): MM tomosynthesis screening BI Accession Number(s): [id number] cc: Stephanie Keith; Physician,Non-Staff MConstantino Patient Name: SIERRA ALBERTS MR#: [id number] : 1965 Exam Date: 12/19/2024 Ordering Doctor: JAD KEITH . RADIOLOGY REPORT PROCEDURE: ? MM TOMOSYNTHESIS SCREENING BI COMPARISON: ? MM TOMOSYNTHESIS SCREENING BI, 12/18/2023. ??MM TOMOSYNTHESIS SCREENING BI, 12/05/2022. ??MG MAMM SCREEN 3D PATRICA CAD, 11/14/2021. ??MG MAMM PATRICA DIAG W CAD DIG, 07/13/2012. INDICATIONS: ? screening Calculator Name ? NCI Breast Cancer Risk Assessment Tool 5 Year Breast Cancer Risk ? 3.50% Lifetime Breast Cancer Risk ? 18.00% Personal Breast Cancer ?No Personal Ovarian Cancer ? No Treatments ? None Family Cancers ? Sister with breast cancer at age 69; Aunt-maternal with breast cancer at age ??60; Aunt-maternal with breast cancer at age ??60. LOCATION: ? [facility] BREAST COMPOSITION: ? The breasts are extremely dense, which lowers the sensitivity of mammography. FINDINGS: RIGHT BREAST: ??No significant suspicious finding. ??There are several focal asymmetries. LEFT BREAST: ??No significant suspicious finding. ??There are similar focal asymmetries . DIAGNOSTIC CATEGORY 2--BENIGN FINDING. NO CHANGE FROM COMPARISON. RECOMMENDATIONS: ROUTINE MAMMOGRAM AND CLINICAL EVALUATION IN 12 MONTHS. Dictated by: Jay Thomas MD on 12/19/2024 at 14:18 Approved by: Jay Thomas MD on 12/19/2024 at 14:19 Dictated By: ?Jay Thomas M.D. Signed By: ?12/19/24 1421 DD/ 1419 TD/TT: ? Gas Regulator Repairer Helper: Procedure Note Radiology, Radiologist, MD - 01/10/2025 [place] [address] Mammography Report Signed Patient: SIERRA ALBERTS JMR#: [id number] : 1965Acct:[id number] Age/Sex: 59 / FADM Date: 12/19/24 Loc: MAMMO Attending Dr: Stephanie Keith Ordering Physician: Stephanie Constantinoults: Date of Service: 12/19/24Follow Up: Procedure(s): MM tomosynthesis screening BI Accession Number(s): [id number] cc: Stephanie Keith; Physician,Non-Staff Jennifer Patient Name: SIERRA ALBERTS MR#: [id number] : 1965 Exam Date: 12/19/2024 Ordering Doctor: JAD KEITH . RADIOLOGY REPORT PROCEDURE: MM TOMOSYNTHESIS SCREENING BI COMPARISON: MM TOMOSYNTHESIS SCREENING BI, 12/18/2023. MMTOMOSYNTHESIS SCREENING BI, 12/05/2022. MG MAMM SCREEN 3D PATRICA CAD, 11/14/2021. MG MAMMBIL DIAG W CAD DIG, 07/13/2012. INDICATIONS: screening Calculator Name NCI Breast Cancer Risk Assessment Tool 5 Year Breast Cancer Risk 3.50% Lifetime Breast Cancer Risk 18.00% Personal Breast Cancer No Personal Ovarian Cancer No Treatments None Family Cancers Sister with breast cancer at age 69; Aunt-maternalwith breast cancer at age 60; Aunt-maternal with breast cancer at age 60. LOCATION: [facility] BREAST COMPOSITION: The breasts are extremely dense, which lowersthe sensitivity of mammography. FINDINGS: RIGHT BREAST: No significant suspicious finding. There are severalfocal asymmetries. LEFT BREAST: No significant suspicious finding. There are similarfocal asymmetries . DIAGNOSTIC CATEGORY 2--BENIGN FINDING. NO CHANGE FROM COMPARISON. RECOMMENDATIONS: ROUTINE MAMMOGRAM AND CLINICAL EVALUATION IN 12 MONTHS. Dictated by: Jay Thomas MD on 12/19/2024 at 14:18 Approved by: Jay Thomas MD on 12/19/2024 at 14:19 Dictated By: Jay Thomas M.D. Signed By:12/19/24 1421 DD/ 1419 TD/TT: Gas Regulator Repairer Helper: Authorizing ProviderResult TypeResult StatusAmy Brianna PACLINISYNC IMAGINGFinal Result * Pap Smear (01/04/2024 12:00 AM EST)Specimen (Source)Anatomical Location / LateralityCollection Method / VolumeCollection TimeReceived TimeSwabCervical swab / Unknown Narrative Authorizing ProviderResult TypeResult StatusAmy Sparks PALAB CYTOLOGY ORDERABLES Final ResultPerforming OrganizationAddressCity/State/ZIP CodePhone Number EXTERNAL LAB from Last 3 Months or Most Recently Relevant to Health Maintenance Insurance Care Teams Team MemberRelationshipSpecialtyStart DateEnd Date Rich Garcia DO PCP - GeneralInternal Zkyrwbsh88/30/23
--- OUTSIDE RECORDS SUMMARY | 2025-01-10 19:17 | XMS_ITS | Encounter Summary ---
Author Organization [facility] Address [address] [facility] [place] [address] Care Team Providers Care Retail Coverage Merchandiser Lead Name Role Phone Rich Garcia DO Primary Care Provider Encounter Details DateTypeDepartmentCare Team (Latest Contact Info)Rwoxhibucuy88/20/2025Clinisync Result Encounter NOMS External Department Unsolicited Stephanie Keith PA [address] [facility] [address] [place], [facility]11 Social History Tobacco UseTypesPacks/DayYears UsedDateSmoking Tobacco: Never Assessed CommentsNoSex and Gender InformationValueDate RecordedSex Assigned at BirthNot on fileLegal HetCdxknz42/15/2023 7:21 PM EDTGender IdentityNot on fileSexual OrientationNot on filedocumented as of this encounter Plan of Treatment DateTypeDepartmentCare Team (Latest Contact Info)Tjickcwmafd29/18/2026 11:00 AM ESTProcedure Visit [facility] Jose FARRELL [address] [facility] [place] [address] Stephanie Keith PA [address] [facility] [address] [place], [facility]11 documented as of this encounter Procedures Procedure NamePriorityDate/TimeAssociated DiagnosisCommentsMM TOMOSYNTHESIS SCREENING BI12/19/2024 2:19 PM EDT documented in this encounter Results * MM TOMOSYNTHESIS SCREENING BI (12/19/2024 2:19 PM EDT)Anatomical Region LateralityModalityOtherSpecimen (Source)Anatomical Location / Laterality Collection Method / VolumeCollection TimeReceived Time12/19/2024 2:19 PM EDT Narrative 12/19/2024 2:21 PM EDT [facility] ?[address] ? [place] [address] ? Mammography Report ? Signed Patient: ARISTEO,MADELINE J ?MR#: [id number] : 1965 ?Acct:[id number] Age/Sex: 59 / F ?ADM Date: 12/19/24 Loc: MAMMO Attending Dr: Stephanie Keith Ordering Physician: Stephanie Keith ?Results: Date of Service: 12/19/24 ?Follow Up: Procedure(s): MM tomosynthesis screening BI Accession Number(s): [id number] cc: Stephanie Keith; Physician,Non-Staff M.D. Patient Name: MADELINE ALBERTS MR#: [id number] : 1965 Exam Date: 12/19/2024 Ordering Doctor: [...] cancer at age ??60. LOCATION: ? [facility] BREAST COMPOSITION: ? The breasts are extremely [...] By: ?12/19/24 1421 DD/ 1419 TD/TT: ? Poultry Debeaker: Procedure Note Radiology, Radiologist, MD - 01/10/2025 [place] [address] Mammography Report Signed Patient: MADELINE ALBERTS JMR#: [id number] : 1965Acct:[id number] Age/Sex: 59 / FADM Date: 12/19/24 Loc: MAMMO Attending Dr: Stephanie Keith Ordering Physician: Stephanie Constantinoults: Date of Service: 12/19/24Follow Up: Procedure(s): MM tomosynthesis screening BI Accession Number(s): [id number] cc: Stephanie Keith; Physician,Non-Staff Jennifer Patient Name: MADELINE ALBERTS MR#: [id number] : 1965 Exam Date: 12/19/2024 Ordering Doctor: [...] cancer at age 60. LOCATION: [facility] BREAST COMPOSITION: The breasts are [...] M.D. Signed By:12/19/24 1421 DD/ 1419 TD/TT: Poultry Debeaker: Authorizing ProviderResult TypeResult StatusAmy [facility] IMAGINGFinal Result documented in this encounter Visit Diagnoses Not on filedocumented in this encounter Care Teams Team MemberRelationshipSpecialtyStart DateEnd Date Rich Garcia DO PCP - GeneralInternal Yjzcserz28/30/23documented as of this encounter
--- OUTSIDE RECORDS SUMMARY | 2025-01-10 19:17 | XMS_ITS | Clinical Summary ---
Author Organization [facility] Address [address] [place] [address] Phone Care Team Providers Care Studio Engineer Name Role Phone Unavailable Primary Care Provider Unavailabl e Social History Tobacco UseTypesPacks/DayYears UsedDateSmoking Tobacco: Never Assessed CommentsUnknownSex and Gender InformationValueDate RecordedSex Assigned at Not on fileLegal GmhNllsmc43/25/2022 9:07 PM ESTGender IdentityNot on fileSexual OrientationNot on file Last Filed Vital Signs Vital SignReadingTime TakenCommentsBlood Nersarhs909/9104 8:51 AM EDT Pulse--Ukfbjhlwthj58.7 ??C (98.1 ??F)06/13/2023 8:51 AM EDTRespiratory Rate71 06/13/2023 8:51 AM EDTOxygen Saturation--Inhaled Oxygen Concentration--Weight-- Height--Body Mass Index-- Plan of Treatment Health MaintenanceDue DateLast DoneCommentsCT Cpzaydgocacg22/01/1966Colonoscopy 1965Colorectal Cancer Obgsxowzh74/01/1966FIT-DNA (Cologuard)1965FIT 1965HIV Fdvqcjqkj39/01/1966Lipid Panel1965 1132Muuxemudqsigc06/01/1966 Yearly Adult Qjywxsvc32/01/1966MMR Vaccines (1 of 1 - Standard series)1966 Hepatitis C Ywvmthbiw80/01/1984Hepatitis B Vaccines (1 of 3 - 19+ 3-dose series) 1984Cervical Cancer Qlagvooic77/01/1987HPV/Fvdsxa5011/30/1986Pap Smear 1986DTaP/Tdap/Td Vaccines (1 - Tdap)12/01/19873472Llyxigglv68/01/2006 Pneumococcal Vaccine (1 of 1 - PCV)12/01/2015Zoster Vaccines (1 of 2)12/01/2015 Influenza Vaccine (#1)2024OVID-19 Vaccine (2024- season)2024 HIB VaccinesAged OutNo longer eligible based on patient's age to complete this topicHPV VaccinesAged OutNo longer eligible based on patient's age to complete this topicHepatitis A VaccinesAged OutNo longer eligible based on patient's age to complete this topicIPV VaccinesAged OutNo longer eligible based on patient's age to complete this topicMeningococcal VaccineAged OutNo longer eligible based on patient's age to complete this topicRotavirus VaccinesAged OutNo longer eligible based on patient's age to complete this topic
== END 2025-01-10 19:12 | disposition home or self-care (01) ==
LOC: LAB 19:11
PROVIDERS: Visit Provider Physician Assistant
DX: Z01.419 Encounter for gynecological examination (general) (routine) without abnormal findings (principal)
CPT/HCPCS: 87624; 88175

== ENCOUNTER 2025-01-11 08:11 | Outpatient (OUT) | payer OTHER, SELFPAY ==
--- OUTSIDE RECORDS SUMMARY | 2025-01-10 11:00 | XMS_ITS | Encounter Summary ---
Author Organization [facility] Address [address] [facility] [place] [address] Care Team Providers Care Microcomputer Support Specialist Name Role Phone Rich Garcia DO Primary Care Provider [phone] Reason for Visit * ReasonCommentsWell Women Visit Encounter Details DateTypeDepartmentCare Team (Latest Contact Info)Mbwxiqftvvp36/11/2025 11:00 AM ESTOffice Visit [facility] [address] [place] [address] Stephanie Reed PA [address] [place], [facility]11 Well woman exam with routine gynecological exam; Breast cancer screening by mammogram; Postmenopausal state Social History Tobacco UseTypesPacks/DayYears UsedDateSmoking Tobacco: Never Assessed CommentsNoSex and Gender InformationValueDate RecordedSex Assigned at BirthNot on fileLegal IomJxxwkr42/15/2023 7:21 PM EDTGender IdentityNot on fileSexual OrientationNot on filedocumented as of this encounter Last Filed Vital Signs Vital SignReadingTime TakenCommentsBlood Ockonrem629/80103/12/2024 11:16 AM EST Pulse--Temperature--Respiratory Rate--Oxygen Saturation--Inhaled Oxygen Concentration--Omvjum12.4 kg (106 lb 12.8 oz)01/10/2025 11:16 AM ESTHeight--Body Mass Index19.5301/04/2024 11:13 AM ESTdocumented in this encounter Progress Notes * JAD Granados - 01/10/2025 11:00 AM EST Reason for Appointment: Patient ID: Madeline Ashley is a 59 y.o. female who presents for Well Women Visit Patient presents today for Annual Exam. MEDICATIONS Current Outpatient Medications Medication Instructions Calcium Carb-Cholecalciferol (Calcium 600 + D) 600-5 MG-MCG tablet Take by mouth. denosumab (Prolia) 60 MG/ML solution prefilled syringe EVERY 6 MONTHS folic acid (FOLVITE) 1 mg, Daily methotrexate 2.5 mg, Every 12 hours for 3 doses per week NIFEdipine CC (ADALAT CC) 30 mg, Daily before breakfast ALLERGIES Allergies Allergen Reactions Penicillamine Rash PROBLEMS Active Ambulatory Problems Diagnosis Date Noted No Active Ambulatory Problems Resolved Ambulatory Problems Diagnosis Date Noted No Resolved Ambulatory Problems Past Medical History: Diagnosis Date Osteoporosis HISTORY PAST MEDICAL HISTORY SOCIAL HISTORY Past Medical History: Diagnosis Date Osteoporosis Social History Tobacco Use Smoking status: Not on file Smokeless tobacco: Not on file Substance Use Topics Alcohol use: Not on file Drug use: Not on file FAMILY HISTORY No family history on file. SURGICAL HISTORY Past Surgical History: Procedure Laterality Date HYSTERECTOMY 2014 REVIEW OF SYSTEMS Review of Systems: Review of Systems Constitutional: Negative. HENT: Negative. Eyes: Negative. Respiratory: Negative. Cardiovascular: Negative. Gastrointestinal: Negative. Genitourinary: Negative. Musculoskeletal: Negative. Skin: Negative. Neurological: Negative. All other systems reviewed and are negative. Hematological: Negative. Endocrine: Negative. Allergic/Immunologic: Negative. OBJECTIVE Objective: Physical Exam Constitutional: Appearance: Normal appearance. She is well-developed. Genitourinary: Vulva normal. Vaginal cuff intact. Cervix is absent. Uterus is absent. Cardiovascular: Rate and Rhythm: Normal rate and regular rhythm. Abdominal: General: Bowel sounds are normal. There is no distension. Palpations: Abdomen is soft. Tenderness: There is no abdominal tenderness. There is no guarding or rebound. Musculoskeletal: General: No swelling. Normal range of motion. Right lower leg: No edema. Left lower leg: No edema. Neurological: Mental Status: She is alert and oriented to person, place, and time. Skin: General: Skin is warm and dry. Psychiatric: Mood and Affect: Mood normal. Behavior: Behavior normal. Vitals and nursing note reviewed. Exam conducted with a supervisor stripping present. Vitals: Estimated body mass index is 19.53 kg/m?? as calculated from the following: Height as of 01/04/24: 5' 2 . Weight as of this encounter: 106 lb 12.8 oz. BP: 120/80 No LMP recorded. Patient has had a hysterectomy. ASSESSMENT & PLAN ICD-10-CM 1. Well woman exam with routine gynecological exam Z01.419 THIN PREP TIS PAP AND HR HPV DNA 2. Breast cancer screening by mammogram Z12.31 CANCELED: Bilateral screening mammogram CANCELED: Bilateral screening mammogram 3. Postmenopausal state Z78.0 DEXA bone density Orders Placed This Encounter Procedures DEXA bone density Annual Wellness Exam (Post Hysterectomy): Patient presents today for routine annual exam. Patient states she has no current complaints. Patients vitals were reviewed and within normal limits. Growth and development is noted to be appropriate for age. Menstrual history is noted to be obsolete due to patients history of hysterectomy. No mental health concerns was expressed. Pap Smear: Speculum was inserted into the vagina and pap was obtained without difficulty. HPV testing was performed per guidelines. Patient was advised that pap results could take anywhere from 7 to 10 days to receive and our office will reach out to the patient with those once we have them. Patient can also view results via [employer]. I reinforced importance of condom use for STI prevention. Patient declined cultures to be performed with today's visit. Breast Exam: Upon examination, clinical breast exam was noted to be normal. Patient was counseled on breast self-awareness, including the importance of knowing what is normal for her own breasts and promptly reporting any changes such as new lumps, skin dimpling, nipple discharge, or pain. Screening mammogram recommended annually beginning at age 40 or earlier if risk factors are present. Discussed signs and symptoms of breast cancer and when to seek medical attention. Answered all patient questions. Follow Up: Patient is to return to our office in one year for annual exam unless needed otherwise. Documented by JAD Granados on behalf of: JAD Granados documented in this encounter Plan of Treatment DateTypeDepartmentCare Team (Latest Contact Info)Zkxvuaaasub48/18/2026 11:00 AM ESTProcedure Visit [facility] [address] [place] [address] Stephanie Reed PA [address] [place] [address] NameTypePriorityAssociated DiagnosesOrder ScheduleDEXA bone densityImaging Routine Postmenopausal state Expected: 01/10/2025 (Approximate), Expires: 01/10/2026THIN PREP TIS PAP AND HR HPV DNAPathology and CytologyRoutine Well woman exam with routine gynecological exam Ordered: 01/10/2025documented as of this encounter Visit Diagnoses Diagnosis Well woman exam with routine gynecological exam Routine gynecological examination Breast cancer screening by mammogram Postmenopausal state Asymptomatic postmenopausal status (age-related) (natural) documented in this encounter Care Teams Team MemberRelationshipSpecialtyStart DateEnd Date Rich Garcia DO PCP - GeneralInternal Qopcsyrn59/30/23documented as of this encounter
--- OUTSIDE RECORDS SUMMARY | 2025-01-11 08:18 | XMS_ITS | Encounter Summary ---
Author Organization [facility] Address [address] [facility] [place] [address] Care Team Providers Care Joint Yarner Name Role Phone Rich Garcia DO Primary Care Provider [phone] Encounter Details DateTypeDepartmentCare Team (Latest Contact Info)Zguwxrecnhz41/20/2025Clinisync Result Encounter [facility]OMS External Department Unsolicited Stephanie Keith PA [address] [facility] [address] [place], [facility]11 Social History Tobacco UseTypesPacks/DayYears UsedDateSmoking Tobacco: Never Assessed CommentsNoSex and Gender InformationValueDate RecordedSex Assigned at BirthNot on fileLegal WbkTiidkh84/15/2023 7:21 PM EDTGender IdentityNot on fileSexual OrientationNot on filedocumented as of this encounter Plan of Treatment DateTypeDepartmentCare Team (Latest Contact Info)Qrddaiubdrb54/18/2026 11:00 AM ESTProcedure Visit [facility] Jose FARRELL [address] [facility] [place] [address] Stephanie Keith PA [address] [facility] [address] [place], [facility]11 documented as of this encounter Procedures Procedure NamePriorityDate/TimeAssociated DiagnosisCommentsMM TOMOSYNTHESIS SCREENING BI12/19/2024 2:19 PM EDT documented in this encounter Results * MM TOMOSYNTHESIS SCREENING BI (12/19/2024 2:19 PM EDT)Anatomical Region LateralityModalityOtherSpecimen (Source)Anatomical Location / Laterality Collection Method / VolumeCollection TimeReceived Time12/19/2024 2:19 PM EDT Narrative 12/19/2024 2:21 PM EDT [facility] ?[address] ? [place] [address] ? Mammography Report ? Signed Patient: ARISTEO,MADELINE J ?MR#: [id number] : 1965 ?Acct:[id number] Age/Sex: 59 / F ?ADM Date: 12/19/24 Loc: MAMMO Attending Dr: Stephanie Keith Ordering Physician: Stephanie Keith ?Results: Date of Service: 12/19/24 ?Follow Up: Procedure(s): MM tomosynthesis screening BI Accession Number(s): [id number] cc: Stephanie Keith; Physician,Non-Staff M.D. Patient Name: MADELINE ALBERTS MR#: [id number] : 1965 Exam Date: 12/19/2024 Ordering Doctor: [...] cancer at age ??60. LOCATION: ? [facility] BREAST COMPOSITION: ? The breasts [...] By: ?12/19/24 1421 DD/ 1419 TD/TT: ? Millinery Salesperson: Procedure Note Radiology, Radiologist, MD - 01/10/2025 [place] [address] Mammography Report Signed Patient: MADELINE ALBERTS JMR#: [id number] : 1965Acct:[id number] Age/Sex: 59 / FADM Date: 12/19/24 Loc: MAMMO Attending Dr: Stephanie Keith Ordering Physician: Stephanie Constantinoults: Date of Service: 12/19/24Follow Up: Procedure(s): MM tomosynthesis screening BI Accession Number(s): [id number] cc: Stephanie Keith; Physician,Non-Staff Jennifer Patient Name: MADELINE ALBERTS MR#: [id number] : 1965 Exam Date: 12/19/2024 Ordering Doctor: [...] breast cancer at age 60. LOCATION: [facility] BREAST COMPOSITION: The breasts are [...] M.D. Signed By:12/19/24 1421 DD/ 1419 TD/TT: Millinery Salesperson: Authorizing ProviderResult TypeResult StatusAmy [facility] IMAGINGFinal Result documented in this encounter Visit Diagnoses Not on filedocumented in this encounter Care Teams Team MemberRelationshipSpecialtyStart DateEnd Date Rich Garcia DO PCP - GeneralInternal Audvuyek80/30/23documented as of this encounter
--- OUTSIDE RECORDS SUMMARY | 2025-01-11 08:18 | XMS_ITS | Clinical Summary ---
Author Organization [facility] Address [address] [facility] [place] [address] Care Team Providers Care Sand Molder Name Role Phone Rich Garcia DO Primary Care Provider [phone] Allergies Active AllergyReactionsCriticalityNoted DateCommentsPenicillamineRashLow 01/04/2024 Medications MedicationSigDispense [...] 60 MG/ML solution prefilled syringe EVERY 6 [id number] Encounters DateTypeDepartmentCare TlwyEtwruzykmhs70/11/2025 11:00 AM ESTOffice Visit [facility] Jose FARRELL [address] [place] [address] Stephanie Keith PA Well woman exam with routine gynecological exam; Breast cancer screening by mammogram; Postmenopausal state01/10/2025amboo flowsheet [facility] Jose FARRELL [address] [facility] [place] [address] Stephanie Keith PA 10/20/2025Clinisync Result Encounter NOMS External Department Unsolicited Stephanie Keith PA from Last 3 Months Social History Tobacco UseTypesPacks/DayYears UsedDateSmoking Tobacco: Never Assessed CommentsNoSex and Gender InformationValueDate RecordedSex Assigned at BirthNot on fileLegal QviJtaoxa45/15/2023 7:21 PM EDTGender IdentityNot on fileSexual OrientationNot on file Last Filed Vital Signs Vital SignReadingTime TakenCommentsBlood Bzznhtak195/80103/12/2024 11:16 AM EST Pulse--Temperature--Respiratory Rate--Oxygen Saturation--Inhaled Oxygen Concentration--Fpddjz83.4 kg (106 lb 12.8 oz)01/10/2025 11:16 AM RKQXuvycn208.5 cm (5' 2 )01/04/2024 11:13 AM ESTBody Mass Index19.5301/04/2024 11:13 AM EST Plan of Treatment DateTypeDepartmentCare Team (Latest Contact Info)Bmqgkknehgi66/18/2026 11:00 AM ESTProcedure Visit NOMPurvi Garcia OBGYChelsea [address] [facility] [place] [address] Stephanie Keith PA [address] [facility] [address] [place], [place] [address] Health MaintenanceDue DateLast DoneCommentsCT Ymjwxtmiivnm82/01/1966Colonoscopy 1965Colorectal Cancer Yccyxygho19/01/1966FIT-DNA1965FIT1965 FOBT1965 9725Fabnoinkwnrme05/01/1966COVID-19 Vaccine ( season) /, 02/02/2024, 01/06/2023, Additional history existsMammogram , 12/18/2023, 12/05/2022ervical Cancer Mjlltbgny78/04/2029 HPV/Wsqrqj7301/03/2029Pap SmearInfluenza VaccineCompleted 11/17/2024, 12/28/2023, 12/05/2022, Additional history existsPneumococcal Vaccine: Pediatrics (0 to 5 Years) and At-Risk Patients (6 to 64 Years)Aged Out No longer eligible based on patient's age to complete this topic Procedures Procedure NamePriorityDate/TimeAssociated DiagnosisCommentsMM TOMOSYNTHESIS SCREENING BI12/19/2024 2:19 PM EDT PAP TRLJGZahtdso39/04/2024 12:00 AM ESTfrom Last 3 Months or Most Recently Relevant to Health Maintenance Results * MM TOMOSYNTHESIS SCREENING BI (12/19/2024 2:19 PM EDT)Anatomical Region LateralityModalityOtherSpecimen (Source)Anatomical Location / Laterality Collection Method / VolumeCollection TimeReceived Time12/19/2024 2:19 PM EDT Narrative 12/19/2024 2:[address] [facility] ?[address] ? [place] [address] ? Mammography Report ? Signed Patient: ARISTEOSIERRA J ?MR#: [id number] : 1965 ?Acct:[id number] Age/Sex: 59 / F ?ADM Date: 12/19/24 Loc: MAMMO Attending Dr: Stephanie Keith Ordering Physician: Stephanie Keith ?Results: Date of Service: 12/19/24 ?Follow Up: Procedure(s): MM tomosynthesis screening BI Accession Number(s): [id number] cc: Stephanie Keith; Physician,Non-Staff MConstantino Patient Name: SIERRA ALBERTS MR#: [id number] : 1965 Exam Date: 12/19/2024 Ordering Doctor: [...] cancer at age ??60. LOCATION: ? [facility] BREAST COMPOSITION: ? The breasts are [...] By: ?12/19/24 1421 DD/ 1419 TD/TT: ? Leather Roller: Procedure Note Radiology, Radiologist, MD - 01/10/2025 [place] [address] Mammography Report Signed Patient: SIERRA ALBERTS JMR#: [id number] : 1965Acct:[id number] Age/Sex: 59 / FADM Date: 12/19/24 Loc: MAMMO Attending Dr: Stephanie Keith Ordering Physician: Stephanie Constantinoults: Date of Service: 12/19/24Follow Up: Procedure(s): MM tomosynthesis screening BI Accession Number(s): [id number] cc: Stephanie Keith; Physician,Non-Staff Jennifer Patient Name: SIERRA ALBERTS MR#: [id number] : 1965 Exam Date: 12/19/2024 Ordering Doctor: [...] breast cancer at age 60. LOCATION: [facility] BREAST COMPOSITION: The breasts are extremely [...] M.D. Signed By:12/19/24 1421 DD/ 1419 TD/TT: Leather Roller: Authorizing ProviderResult TypeResult StatusAmy Brianna PACLINISYNC IMAGINGFinal Result * Pap Smear (01/04/2024 12:00 AM EST)Specimen (Source)Anatomical Location / LateralityCollection Method / VolumeCollection TimeReceived TimeSwabCervical swab / Unknown Narrative Authorizing ProviderResult TypeResult StatusAmy [place] PALAB CYTOLOGY ORDERABLES Final ResultPerforming OrganizationAddressCity/State/ZIP CodePhone Number EXTERNAL LAB from Last 3 Months or Most Recently Relevant to Health Maintenance Insurance Care Teams Team MemberRelationshipSpecialtyStart DateEnd Date Rich Garcia DO PCP - GeneralInternal Gxmdcdxg36/30/23
--- OUTSIDE RECORDS SUMMARY | 2025-01-11 08:18 | XMS_ITS | Clinical Summary ---
Author Organization [facility] Address [address] [place] [address] Phone Care Team Providers Care Strategic Debriefing Officer Name Role Phone Unavailable Primary Care Provider Unavailabl e Social History Tobacco UseTypesPacks/DayYears UsedDateSmoking Tobacco: Never Assessed CommentsUnknownSex and Gender InformationValueDate RecordedSex Assigned at Not on fileLegal OarLttzrr22/25/2022 9:07 PM ESTGender IdentityNot on fileSexual OrientationNot on file Last Filed Vital Signs Vital SignReadingTime TakenCommentsBlood Iabxaidf736/9104 8:51 AM EDT Pulse--Bfimxcyvemu90.7 ??C (98.1 ??F)06/13/2023 8:51 AM EDTRespiratory Rate71 06/13/2023 8:51 AM EDTOxygen Saturation--Inhaled Oxygen Concentration--Weight-- Height--Body Mass Index-- Plan of Treatment Health MaintenanceDue DateLast DoneCommentsCT Hfxgwvoqngmg76/01/1966Colonoscopy 1965Colorectal Cancer Praeowheb50/01/1966FIT-DNA (Cologuard)1965FIT 1965HIV Cmfipfdtb99/01/1966Lipid Panel1965 4220Zlcgssudqhvbz30/01/1966 Yearly Adult Plgzmlma79/01/1966MMR Vaccines (1 of 1 - Standard series)1966 Hepatitis C Ckmeclkfm34/01/1984Hepatitis B Vaccines (1 of 3 - 19+ 3-dose series) 1984Cervical Cancer Jnubcawdf85/01/1987HPV/Zkmotf1911/30/1986Pap Smear 1986DTaP/Tdap/Td Vaccines (1 - Tdap)12/01/19874220Bywwhqonw45/01/2006 Pneumococcal Vaccine (1 of 1 - PCV)12/01/2015Zoster [...]
--- OUTSIDE RECORDS SUMMARY | 2025-01-11 08:18 | XMS_ITS | Encounter Summary ---
Author Organization [facility] Address [address] [facility] [place] [address] Care Team Providers Care Computer Instructor Name Role Phone Rich Garcia DO Primary Care Provider [phone] Encounter Details DateTypeDepartmentCare Team (Latest Contact Info)Oimnevbtinv24/11/2025amboo flowsheet SULEMA FARRELL [address] [place] [address] [place] [address] Stephanie Reed PA [address] [facility] [address] [place], [facility]11 Social History Tobacco UseTypesPacks/DayYears UsedDateSmoking Tobacco: Never Assessed CommentsNoSex and Gender InformationValueDate RecordedSex Assigned at BirthNot on fileLegal DydYoincf85/15/2023 7:21 PM EDTGender IdentityNot on fileSexual OrientationNot on filedocumented as of this encounter Plan of Treatment DateTypeDepartmentCare Team (Latest Contact Info)Vcjioberiyi17/18/2026 11:00 AM ESTProcedure Visit SULEMA FARRELL [address] [facility] [place] [address] Stephanie Reed PA [address] [facility] [address] [place], [facility]11 documented as of this encounter Visit Diagnoses Not on filedocumented in this encounter Care Teams Team MemberRelationshipSpecialtyStart DateEnd Date Rich Garcia DO PCP - GeneralInternal Qitvnxhh15/30/23documented as of this encounter
[2025-01-11 09:14] LABS: Cholesterol 207 mg/dL (<=200); Glucose 91 mg/dL (74-106); HDL Cholesterol 78 mg/dL (40-60); Triglycerides 43 mg/dL (<=150); VLDL CHOLESTEROL 8.6 mg/dL
== END 2025-01-11 08:12 | disposition home or self-care (01) ==
LOC: LAB 08:12
PROVIDERS: Visit Provider Internal Medicine
DX: Z00.00 Encounter for general adult medical examination without abnormal findings (principal)
CPT/HCPCS: 36415; 80061; 82947; 83036

== ENCOUNTER 2025-01-23 09:23 | Outpatient (OUT) | payer OTHER, SELFPAY ==
--- OUTSIDE RECORDS SUMMARY | 2025-01-10 11:00 | XMS_ITS | Encounter Summary ---
Author Organization [facility] Address [address] [facility] [place] [address] Care Team Providers Care Napper Tender Name Role Phone Rich Garcia DO Primary Care Provider [phone] Reason for Visit * ReasonCommentsWell Women Visit Encounter Details DateTypeDepartmentCare Team (Latest Contact Info)Rdrhxpcdmkf04/11/2025 11:00 AM ESTOffice Visit [facility] [address] [place] [address] Stephanie Reed PA [address] [place], [facility]11 Well woman exam with routine gynecological exam; Breast cancer screening by mammogram; Postmenopausal state Social History Tobacco UseTypesPacks/DayYears UsedDateSmoking Tobacco: Never Assessed CommentsNoSex and Gender InformationValueDate RecordedSex Assigned at BirthNot on fileLegal QneHcjhjt26/15/2023 7:21 PM EDTGender IdentityNot on fileSexual OrientationNot on filedocumented as of this encounter Last Filed Vital Signs Vital SignReadingTime TakenCommentsBlood Nluqqsve471/80103/12/2024 11:16 AM EST Pulse--Temperature--Respiratory Rate--Oxygen Saturation--Inhaled Oxygen Concentration--Smzlkx75.4 kg (106 lb 12.8 oz)01/10/2025 11:16 AM [...] nursing note reviewed. Exam conducted with a pathology technologist present. Vitals: Estimated body mass index is [...] them. Patient can also view results via [employer]. I reinforced importance of condom use for [...] Plan of Treatment DateTypeDepartmentCare Team (Latest Contact Info)Qbsvkyrvlct24/18/2026 11:00 AM ESTProcedure Visit [facility] [address] [place] [address] Stephanie Reed PA [address] [place] [address] NameTypePriorityAssociated DiagnosesOrder ScheduleDEXA bone densityImaging Routine Postmenopausal [...] Team MemberRelationshipSpecialtyStart DateEnd Date Rich Garcia DO [address] [place] [address] PCP - GeneralInternal Zzptptvx99/30/23documented as of this encounter
--- OUTSIDE RECORDS SUMMARY | 2025-01-23 09:28 | XMS_ITS | Encounter Summary ---
Author Organization [facility] Address [address] [facility] [place] [address] Care Team Providers Care Pediatrician/Medical Doctor Name Role Phone Rich Garcia DO Primary Care Provider [phone] Encounter Details DateTypeDepartmentCare Team (Latest Contact Info)Kwdzpuffsmk93/11/2025Clinisync Result Encounter NOMS External Department Unsolicited Stephanie Reed PA [address] [facility] [address] [place], [facility]11 Social History Tobacco UseTypesPacks/DayYears UsedDateSmoking Tobacco: Never Assessed CommentsNoSex and Gender InformationValueDate RecordedSex Assigned at BirthNot on fileLegal NibSuapko72/15/2023 7:21 PM EDTGender IdentityNot on fileSexual OrientationNot on filedocumented as of this encounter Plan of Treatment DateTypeDeparthenry ford jackson hospitalCare Team (Latest Contact Info)Mwpvwczajtp10/18/2026 11:00 AM ESTProcedure Visit [facility] Jose FARRELL [address] [facility] [place] [address] Stephanie Reed PA [address] [facility] [address] [place], [facility]11 documented as of this encounter Procedures Procedure NamePriorityDate/TimeAssociated DiagnosisCommentsIGP,APTIMA HPV,AGE DPIVTsxsdga23/11/2025 11:08 AM EST documented in this encounter Results * IGP,APTIMA HPV,AGE GDLN (01/10/2025 11:08 AM EST)ComponentValueRef RangeTest MethodAnalysis TimePerformed AtPathologist SignatureAGE GDLN ACOG TESTINGNote. TBHComment: ?? TESTS ? RESULT ??FLAG ??UNITS ?REF RANGE ??LAB ?? Clinician Provided Cytology Information ?? Source.............Vagina ?? No. of containers..01 ThinPrep Vial Age Algo ACOG Liz... ??30-65 ? 01 ?FLAG LEGEND: ?L-Low Normal,H-High Normal,LL-Alert Low,HH-Alert High <-Panic Low,>-Panic High,A-Abnormal,AA-Critical Abnormal Performed at: 01 =G ?[facility] ?? [address] [place], [place] ??[address] ?? Betsy Harris MD, IGP, APTIMA HPV, RFX 16/18,45Note.TBHComment: ?? TESTS ? RESULT ??FLAG ??UNITS ?REF RANGE ??LAB DIAGNOSIS: ?02 ?? UNSATISFACTORY FOR EVALUATION. Recommendation: ? 02 ?? Suggest follow up as clinically appropriate. Specimen adequacy: ?02 ?? Specimen processed and examined but unsatisfactory for evaluation of ?? epithelial abnormality because of insufficient cellularity. Performed by: ? 02 ?? Kishan Alonzo Respiratory Assistant (ASCP) QC reviewed by: ? 02 ?? Bev Flowers Respiratory Assistant (ASCP) . ? 02 Note: ? Note ?02 ?? The Pap smear is a screening test designed to aid in the ?? detection of premalignant and malignant conditions of the ?? uterine cervix. ??It is not a diagnostic procedure and ?? should not be used as the sole means of detecting cervical ?? cancer. ??Both false-positive and false-negative reports do ?? occur. Test Methodology: ? Note ?02 ?? This liquid based ThinPrep(R) pap test was interpreted ?? using the [employer](R) Genius(TM) Cervical Algorithm whole ?? slide imaging system. HPV Genotype Reflex ?? Note ?02 ?? Criteria not met, HPV Genotype not performed. ?FLAG LEGEND: ?L-Low Normal,H-High Normal,LL-Alert Low,HH-Alert High <-Panic Low,>-Panic High,A-Abnormal,AA-Critical Abnormal Performed at: 02 WB ?[facility] ?? [address] [place], [place] ??[address] ?? Betsy Harris MD, HPV APTIMANegativeNegativeTBHComment: This nucleic acid amplification test detects fourteen high- risk HPV types (16,18,31,33,35,39,45,51,52,56,58,59,66,68) without differentiation. Performed at: ??=G - [address] ??[id number] Supervisor Bakery Sanitation: Betsy Harris MD, Phone: ??[phone] Performed at: ??WB - [address] ??[id number] Supervisor Bakery Sanitation: Betsy Harris MD, Phone: ??[phone] Specimen (Source)Anatomical Location / LateralityCollection Method / Volume Collection TimeReceived Time01/10/2025 11:08 AM EST01/10/2025 8:01 PM EST Narrative CLINISYNC - 01/17/2025 12:14 PM EST SPATULA-ALONE TOTAL HX VAGINA Authorizing ProviderResult TypeResult StatusAmy Dover PALAB BLOOD ORDERABLES Final ResultPerforming OrganizationAddressCity/State/ZIP CodePhone Number CLINISYNC TB documented in this encounter Visit Diagnoses Not on filedocumented in this encounter Care Teams Team MemberRelationshipSpecialtyStart DateEnd Date Rich Garcia, [address] [place] [address] PCP - GeneralInternal Igzokucu22/30/23documented as of this encounter
--- OUTSIDE RECORDS SUMMARY | 2025-01-23 09:28 | XMS_ITS | Clinical Summary ---
Author Organization [facility] Address [address] [facility] [place] [address] Care Team Providers Care Criminal Records Technician Name Role Phone Rich Garcia DO Primary Care Provider [phone] Allergies Active AllergyReactionsCriticalityNoted DateCommentsPenicillamineRashLow 01/04/2024 Medications MedicationSigDispense [...] 60 MG/ML solution prefilled syringe EVERY 6 [id number] Encounters DateTypeDepartmentCare PfzxHsprbuurcbo67/11/2025 11:00 AM ESTOffice Visit [facility] Jose FARRELL [address] [place] [phone] Stephanie Keith PA Well woman exam with routine gynecological exam; Breast cancer screening by mammogram; Postmenopausal state01/10/2025linisync Result Encounter [facility]OMS External Department Unsolicited Stephanie Keith PA 01/10/2025amboo flowsheet [facility] [address] [facility] [place] [address] Stephanie Keith PA 12/19/2024linisync Result Encounter NOMS External Department Unsolicited Stephanie Keith PA from Last 3 Months Social History Tobacco UseTypesPacks/DayYears UsedDateSmoking Tobacco: Never Assessed CommentsNoSex and Gender InformationValueDate RecordedSex Assigned at BirthNot on fileLegal XlpIbzaqc43/15/2023 7:21 PM EDTGender IdentityNot on fileSexual OrientationNot on file Last Filed Vital Signs Vital SignReadingTime TakenCommentsBlood Qubwnlle506/80103/12/2024 11:16 AM EST Pulse--Temperature--Respiratory Rate--Oxygen Saturation--Inhaled Oxygen Concentration--Kzheix03.4 kg (106 lb 12.8 oz)01/10/2025 11:16 AM SYEHyguvj581.5 cm (5' 2 )01/04/2024 11:13 AM ESTBody Mass Index19.5301/04/2024 11:13 AM EST Plan of Treatment DateTypeDepartmentCare Team (Latest Contact Info)Cbgwiauxbar00/18/2026 11:00 AM ESTProcedure Visit [facility] Jose OBGYN [address] [facility] [address] Stephanie Keith PA [address] [facility] [address] [place], [place] [address] Health MaintenanceDue DateLast DoneCommentsCT Bgvxzkaabelm70/01/1966Colonoscopy 1965Colorectal Cancer Yulbtlmhi47/01/1966FIT-DNA1965FIT1965 FOBT1965 3379Rtbymymxlllez06/01/1966COVID-19 Vaccine (2024- season) /, 02/02/2024, 01/06/2023, Additional history existsMammogram /, 12/18/2023, 12/05/2022ervical Cancer Ldarokafb63/04/2029 HPV/Qeeeay8301/03/2029Pap Smear/04/2024Influenza VaccineCompleted 11/17/2024, 12/28/2023, 12/05/2022, Additional history existsPneumococcal Vaccine: Pediatrics (0 to 5 Years) and At-Risk Patients (6 to 64 Years)Aged Out No longer eligible based on patient's age to complete this topic Procedures Procedure NamePriorityDate/TimeAssociated DiagnosisCommentsIGP,APTIMA HPV,AGE CPLHYzdrikk05/11/2025 11:08 AM EST MM TOMOSYNTHESIS SCREENING BI12/19/2024 2:19 PM EDT PAP ROOACWunegcf48/04/2024 12:00 AM ESTfrom Last 3 Months or Most Recently Relevant to Health Maintenance Results * IGP,APTIMA HPV,AGE GDLN (01/10/2025 11:08 [...] at: 01 =G ?[facility] ?? [address] [place] ??[phone] ?? Betsy Harris MD, IGP, APTIMA HPV, RFX 16/18,45Note.TBHComment: ?? TESTS ? RESULT ??FLAG ??UNITS ?REF RANGE ??LAB DIAGNOSIS: ?02 ?? UNSATISFACTORY FOR EVALUATION. Recommendation: ? 02 ?? Suggest follow up as clinically appropriate. Specimen adequacy: ?02 ?? Specimen processed and examined but unsatisfactory for evaluation of ?? epithelial abnormality because of insufficient cellularity. Performed by: ? 02 ?? Kishan Alonzo Reel Cart Operator ([facility]) QC reviewed by: ? 02 ?? Bev Flowers, Reel Cart Operator (ASCP) . ? 02 Note: ? Note [...] pap test was interpreted ?? using the [employer]R) Genius(TM) Cervical Algorithm whole ?? slide imaging system. HPV Genotype Reflex ?? Note ?02 ?? Criteria not met, HPV Genotype not performed. ?FLAG LEGEND: ?L-Low Normal,H-High Normal,LL-Alert Low,HH-Alert High <-Panic Low,>-Panic High,A-Abnormal,AA-Critical Abnormal Performed at: 02 WB ?[facility] ?? [address] [facility] [place], [place] ??[address] ?? Betsy Harris MD, HPV APTIMANegativeNegativeTBHComment: This nucleic acid amplification test detects fourteen high- risk HPV types (16,18,31,33,35,39,45,51,52,56,58,59,66,68) without differentiation. Performed at: ??=G - [facility] [address] [facility] [place], [place] ??[id number] Ibm Bpm Architect: Betsy Harris MD, Phone: ??[phone] Performed at: ??WB - [facility] [address] [facility] [place], [place] ??[id number] Ibm Bpm Architect: Betsy Harris MD, Phone: ??[phone] Specimen (Source)Anatomical Location / LateralityCollection Method / Volume Collection TimeReceived Time01/10/2025 11:08 AM EST01/10/2025 8:01 PM EST Narrative CLINISYNC - 01/17/2025 12:14 PM EST SPATULA-ALONE TOTAL HX VAGINA Authorizing ProviderResult TypeResult StatusAmy BriannaCleveland Clinic Hillcre[facility] BLOOD ORDERABLES Final ResultPerforming OrganizationAddressCity/State/ZIP CodePhone Number CLINISYNC TBH * MM TOMOSYNTHESIS SCREENING BI (12/19/2024 2:19 PM EDT)Anatomical Region LateralityModalityOtherSpecimen (Source)Anatomical Location / Laterality Collection Method / VolumeCollection TimeReceived Time12/19/2024 2:19 PM EDT Narrative 12/19/2024 2:21 PM EDT [facility] ?[address] ? [place], [facility]11 ? Mammography Report ? Signed Patient: SIERRA ALBERTS ?MR#: [id number] : 1965 ?Acct:[id number] Age/Sex: 59 / F ?ADM Date: 12/19/24 Loc: MAMMO Attending Dr: Stephanie Keith Ordering Physician: Stephanie Keith ?Results: Date of Service: 12/19/24 ?Follow Up: Procedure(s): MM tomosynthesis screening BI Accession Number(s): [id number] cc: Stephanie Keith; Physician,Non-Staff M.Mitzy Patient Name: SIERRA ALBERTS MR#: [id number] : 1965 Exam Date: 12/19/2024 Ordering Doctor: [...] cancer at age ??60. LOCATION: ? [facility] BREAST COMPOSITION: ? The breasts are [...] By: ?12/19/24 1421 DD/ 1419 TD/TT: ? Administrative Support Manager: Procedure Note Radiology, Radiologist, MD - 01/10/2025 The [place] [id number] Mammography Report Signed Patient: SIERRA ALBERTS JMR#: [id number] : 1965Acct:[id number] Age/Sex: 59 / FADM Date: 12/19/24 Loc: MAMMO Attending Dr: Stephanie Keith Ordering Physician: Stephanie KeithResults: Date of Service: 12/19/24Follow Up: Procedure(s): MM tomosynthesis screening BI Accession Number(s): [id number] cc: Stephanie Keith; Physician,Non-Staff M.Mitzy Patient Name: SIERRA ALBERTS MR#: [id number] : 1965 Exam Date: 12/19/2024 Ordering Doctor: [...] breast cancer at age 60. LOCATION: [facility] BREAST COMPOSITION: The breasts are extremely [...] M.D. Signed By:12/19/24 1421 DD/ 1419 TD/TT: Administrative Support Manager: Authorizing ProviderResult TypeResult StatusAmy Brianna PACLINISYNC IMAGINGFinal Result * Pap Smear (01/04/2024 12:00 AM EST)Specimen (Source)Anatomical Location / LateralityCollection Method / VolumeCollection TimeReceived TimeSwabCervical swab / Unknown Narrative Authorizing ProviderResult TypeResult StatusAmy Brianna PALAB CYTOLOGY ORDERABLES Final ResultPerforming OrganizationAddressCity/State/ZIP CodePhone Number EXTERNAL LAB from Last 3 Months or Most Recently Relevant to Health Maintenance Insurance Care Teams Team MemberRelationshipSpecialtyStart DateEnd Date Rich Garcia DO [address] [place] [address] PCP - GeneralInternal Paognccc03/30/23
--- OUTSIDE RECORDS SUMMARY | 2025-01-23 09:28 | XMS_ITS | Encounter Summary ---
Author Organization [facility] Address [address] [facility] [place] [address] Care Team Providers Care Aerospace Products Sales Engineer Name Role Phone Rich Garcia DO Primary Care Provider Encounter Details DateTypeDepartmentCare Team (Latest Contact Info)Kqiorestyqq41/11/2025amboo flowsheet SULEMA FARRELL [address] [place] [address] [place] [address] Stephanie Reed PA [address] [facility] [address] [place], [facility]11 Social History Tobacco UseTypesPacks/DayYears UsedDateSmoking Tobacco: Never Assessed CommentsNoSex and Gender InformationValueDate RecordedSex Assigned at BirthNot on fileLegal ZyrBxcetx97/15/2023 7:21 PM EDTGender IdentityNot on fileSexual OrientationNot on filedocumented as of this encounter Plan of Treatment DateTypeDepartmentCare Team (Latest Contact Info)Cfpeajmsewn14/18/2026 11:00 AM ESTProcedure Visit SULEMA FARRELL [address] [facility] [place] [address] Stephanie Reed PA [address] [facility] [place] [address] documented as of this encounter Visit Diagnoses Not on filedocumented in this encounter Care Teams Team MemberRelationshipSpecialtyStart DateEnd Date Rich Garcia DO [address] [place] [address] PCP - GeneralInternal Urckangl25/30/23documented as of this encounter
--- OUTSIDE RECORDS SUMMARY | 2025-01-23 09:28 | XMS_ITS | Clinical Summary ---
Author Organization [facility] Address [address] [place] [address] Phone Care Team Providers Care Director Payment Name Role Phone Unavailable Primary Care Provider Unavailabl e Social History Tobacco UseTypesPacks/DayYears UsedDateSmoking Tobacco: Never Assessed CommentsUnknownSex and Gender InformationValueDate RecordedSex Assigned at Not on fileLegal EudCsdfwl31/25/2022 9:07 PM ESTGender IdentityNot on fileSexual OrientationNot on file Last Filed Vital Signs Vital SignReadingTime TakenCommentsBlood Uyzokevw523/9104 8:51 AM EDT Pulse--Xfuyaxzbehh27.7 ??C (98.1 ??F)06/13/2023 8:51 AM EDTRespiratory Rate71 06/13/2023 8:51 AM EDTOxygen Saturation--Inhaled Oxygen Concentration--Weight-- Height--Body Mass Index-- Plan of Treatment Health MaintenanceDue DateLast DoneCommentsCT Bwxwvdgwolaf38/01/1966Colonoscopy 1965Colorectal Cancer Tryaztgqa38/01/1966FIT-DNA (Cologuard)1965FIT 1965HIV Twciuackg34/01/1966Lipid Panel1965 9744Nbebxzklyitdb22/01/1966 Yearly Adult Fyhxsqws43/01/1966MMR Vaccines (1 of 1 - Standard series)1966 Hepatitis C Gftgfgxls04/01/1984Hepatitis B Vaccines (1 of 3 - 19+ 3-dose series) 1984Cervical Cancer Afiflatje80/01/1987HPV/Gvszte8711/30/1986Pap Smear 1986DTaP/Tdap/Td Vaccines (1 - Tdap)12/01/19875267Vohhebggp48/01/2006 Pneumococcal Vaccine (1 of 1 - PCV)12/01/2015Zoster [...]
--- OUTSIDE RECORDS SUMMARY | 2025-01-23 09:28 | XMS_ITS | Encounter Summary ---
Author Organization [facility] Address [address] [facility] [place] [address] Care Team Providers Care Supply Chain Specialist Name Role Phone Rich Garcia DO Primary Care Provider [phone] Encounter Details DateTypeDepartmentCare Team (Latest Contact Info)Dyndchqoyec94/20/2025Clinisync Result Encounter NOMS External Department Unsolicited Stephanie Keith PA [address] [facility] [address] [place], [facility]11 Social History Tobacco UseTypesPacks/DayYears UsedDateSmoking Tobacco: Never Assessed CommentsNoSex and Gender InformationValueDate RecordedSex Assigned at BirthNot on fileLegal KavRbowyp08/15/2023 7:21 PM EDTGender IdentityNot on fileSexual OrientationNot on filedocumented as of this encounter Plan of Treatment DateTypeDepartmentCare Team (Latest Contact Info)Ofnmusxxxqt51/18/2026 11:00 AM ESTProcedure Visit [facility] Jose FARRELL [address] [facility] [place] [address] Stephanie Keith PA [address] [facility] [address] [place], [facility]11 documented as of this encounter Procedures Procedure NamePriorityDate/TimeAssociated DiagnosisCommentsMM TOMOSYNTHESIS SCREENING BI12/19/2024 2:19 PM EDT documented in this encounter Results * MM TOMOSYNTHESIS SCREENING BI (12/19/2024 2:19 PM EDT)Anatomical Region LateralityModalityOtherSpecimen (Source)Anatomical Location / Laterality Collection Method / VolumeCollection TimeReceived Time12/19/2024 2:19 PM EDT Narrative 12/19/2024 2:21 PM EDT [facility] ?[address] ? [place] [address] ? Mammography Report ? Signed Patient: ARISTEO,MADELINE J ?MR#: [id number] : 1965 ?Acct:[id number] Age/Sex: 59 / F ?ADM Date: 12/19/24 Loc: MAMMO Attending Dr: Stephanie Keith Ordering Physician: Stephanie Keith ?Results: Date of Service: 12/19/24 ?Follow Up: Procedure(s): MM tomosynthesis screening BI Accession Number(s): [id number] cc: Stephanie Keith; Physician,Non-Staff M.D. Patient Name: MADELINE ALBERTS MR#: [id number] : 1965 Exam Date: 12/19/2024 Ordering Doctor: [...] cancer at age ??60. LOCATION: ? [facility] BREAST COMPOSITION: ? The breasts [...] By: ?12/19/24 1421 DD/ 1419 TD/TT: ? Senior Statistical Programmer: Procedure Note Radiology, Radiologist, MD - 01/10/2025 [place] [address] Mammography Report Signed Patient: MADELINE ALBERTS JMR#: [id number] : 1965Acct:[id number] Age/Sex: 59 / FADM Date: 12/19/24 Loc: MAMMO Attending Dr: Stephanie Keith Ordering Physician: Stephanie Constantinoults: Date of Service: 12/19/24Follow Up: Procedure(s): MM tomosynthesis screening BI Accession Number(s): [id number] cc: Stephanie Keith; Physician,Non-Staff Jennifer Patient Name: MADELINE ALBERTS MR#: [id number] : 1965 Exam Date: 12/19/2024 Ordering Doctor: [...] breast cancer at age 60. LOCATION: [facility] BREAST COMPOSITION: The breasts are [...] M.D. Signed By:12/19/24 1421 DD/ 1419 TD/TT: Senior Statistical Programmer: Authorizing ProviderResult TypeResult StatusAmy [facility] IMAGINGFinal Result documented in this encounter Visit Diagnoses Not on filedocumented in this encounter Care Teams Team MemberRelationshipSpecialtyStart DateEnd Date Rich Garcia DO [address] [place] [phone] PCP - GeneralInternal Ludtaphk69/30/23documented as of this encounter
--- OUTSIDE RECORDS SUMMARY | 2025-01-23 09:43 | XMS_ITS | CCD ---
Author Organization [facility] Care Team Providers Care Flatwork Catcher Name Role Phone DO Rich Segura Primary Care Provider THERESE Ornelas Attending Provider Patricia Ornelas Attending Unavailable Patricia Ornelas Admitting Unavailable Jose, Rich Primary Care Unavailable Rich Segura Unavailable GRACIE, DR PRINCE Admitting Unavailable BOWMAN, [...] Care Unavailable MISC, DR DANIELS Consulting Unavailable Jose LOYA, Rich Cason Primary Care Provider Rich Segura DO Primary Care Provider Rich Segura DO Primary Care Provider Rich Segura DO Attending Provider [phone] STEPHANIE REED Attending Unavailable Allergies Allergy ClassificationReported Allergen(s)Allergy TypeDate of OnsetReaction(s) Facility (2 sources)PenicillinsDrug allergy (disorder)92-92-6944Rmmukpe Reaction, Comment:[facility] Repository (5 sources)Penicillin VDrug Vnkbkxp37-14-5990Zklhbuf, Unknown ReactionHarrison [facility] Hospital (1 source)PenicillinsDrug allergy (disorder)47-97-7872TufCincinnati [facility] Repository (1 source)Allergies ReconciledPropensity to adverse reactionsUnkSullivan County Memorial Hospital [place] Other (2 sources)Substance with penicillin structure and antibacterial mechanism of action (substance)Drug allergyComment:[employer] [place] Other (1 source)patient allergy list reviewed by nurse or physiciaPropensity to adverse dyaiyapfw83-10-7357Akfcimc:[facility] HospitalOr[facility] [place] Other (8 sources)penicillAMINEDrug Mlibrwg43-59-7235GydsDUZM Healthcare Medications Current Medications MedicationDrug Class(es)DatesSig (Normalized)Sig (Original)calcium carbonate 600 mg oral capsule (4 sources)take 1 tablet by mouth twice daily at mealtimeCalcium Carbonate 600 MG 1 tablet with food Orally Twice a day Activecalcium carbonate 1500 mg / cholecalciferol 200 unt oral tablet (11 sources)Vitamin DStart: 51-78-7521rzfh 1 tablet by mouth twice dailyCalcium Carbonate-Vitamin D3 600 mg-5 mcg (200 unit) Tablet Active 1 TAB PO Twice daily January 28, 2021 12:00am Complies with drug therapyCalcium Carb- Cholecalciferol (Calcium 600 + D) 600-5 MG-MCG tablet Take by mouth. Active1 ml denosumab 60 mg/ml prefilled syringe (8 sources)RANK Ligand InhibitorStart: 95-70-2902frlgvlsoo (Prolia) 60 MG/ML solution prefilled syringe EVERY 6 MONTHS 12/21/2023 Activefolic acid 1 mg oral tablet (15 sources)Start: 80-40-3239wqev 1 tablet by mouth once dailyFolic Acid 1 mg tablet Active 1 MG PO Daily January 28, 2021 12:00am Complies with drug therapymethotrexate 2.5 mg oral tablet (15 sources)Folate Analog Metabolic InhibitorStart: 73-81-0990vgwn 1 tablet by mouth once dailyMethotrexate Sodium 2.5 mg tablet Active 2.5 MG PO Daily January 28, 2021 12:00am Complies with drug ijuwpzc79 hr NIFEdipine 30 mg extended release oral tablet (15 sources)Dihydropyridine Calcium Channel BlockerStart: 01-41-4449zbmb 1 tablet by mouth once dailyNifedipine 30 mg Tablet Extended Release Active 30 MG PO Daily January 28, 2021 12:00am Complieswith drug therapytake 1 tablet by mouth every twenty-four hoursProcardia XL 30 MG 1 tablet Orally Once a day Active Completed/Discontinued Medications MedicationDrug Class(es)DatesSig (Normalized)Sig (Original)azithromycin 250 mg oral tablet (6 sources)Macrolide AntimicrobialStart: 12-21-2023 End: 25-63-5604Kwaqnmvrijnw 250 mg tablet Discontinued 250 MG PO As Directed 6 5 0 March 21, 2024 3:27pm January 09, 2025 1:53pmStart: 04-11-2022 Azithromycin 250 MG as directed Orally daily for 5 days Apr, Not-Taking benzonatate 200 mg oral capsule (4 sources)Non-narcotic AntitussiveStart: 94-03-0726vqry 1 capsule by mouth every eight hoursBenzonatate 200 MG 1 capsule Orally Three times a day for 10 Mar, Not-Takingdoxycycline hyclate 100 mg oral capsule (4 sources)Tetracycline-class DrugStart: 28-16-5614ieou 1 capsule by mouth twice dailyDoxycycline Hyclate 100 MG 1 capsule Orally twice daily for 7 days Mar, Not-Taking3 ml ibandronic acid 1 mg/ml injection (6 sources)BisphosphonateStart: 01-28-2021 End: 90-96-5081litw 3 mg intravenously every three monthsIbandronate 3 mg/3 mL Solution Discontinued 3 MG IV EVERY 3 MONTHS January 28, 2021 12:00am December 21, 2023 12:36pmIbandronate Sodium 3 MG/3ML 3 mL Intravenous Activeomeprazole 20 mg delayed release oral capsule (4 sources)Proton Pump InhibitorOmeprazole 20 MG (Prior Auth: Rx Ref#:[id number]) Oral for 90 Not-Taking Problems Active Problems Problem ClassificationProblemDateDocumented DateEpisodic/ChronicAcute bronchitis (1 source)Acute bronchitis due to other specified organismsEpisodicEsophageal disorders (7 sources)Gastroesophageal reflux disease; Translations: [Gastro-esophageal reflux disease without esophagitis]ChronicImmunity disorders (6 sources)Immunosuppression; Translations: [Immunodeficiency, unspecified] ChronicImmunizations and screening for infectious disease (3 sources)Encounter for screening for human papillomavirus (HPV); Translations: [Vaccination given]Onset: 10-76-9097NwpfbrulTqxzmtdyvbdhc mental health disorders (4 sources)Globus sensation; Translations: [Other somatoform disorders]Chronic Osteoporosis (8 sources)Primary osteoporosis; Translations: [Age-related osteoporosis without current pathological fracture]Onset: 08-01-8841QddfxgiJvgqv aftercare (1 source)Other ocean transportation intermediary (current) drug therapy; Translations: [OTH LONGTERM CURRENT DRUG THERAPY]Onset: 25-19-5329NfpgbgqoKudlg circulatory disease (6 sources)Raynaud's disease; Translations: [Raynaud's syndrome without gangrene]ChronicOther circulatory disease (2 sources)Raynaud's syndrome without gangrene; Translations: [RAYNAUDS SYNDROME WITHOUT GANGRENE]Onset: 35-02-4028ZmfqdbyNmyef circulatory disease (2 sources)Raynaud's phenomenon; Translations: [Raynaud's syndrome without gangrene]77-88-8331ZncyigsUcocp gastrointestinal disorders (4 sources)Pharyngeal dysphagia; Translations: [Dysphagia, pharyngeal phase] EpisodicOther gastrointestinal disorders (4 sources)Dysphagia; Translations: [Dysphagia, unspecified]EpisodicOther lower respiratory disease (1 source)Pulmonary fibrosis, unspecified; Translations: [Pulmonary fibrosis, unspecified]Onset: 32-30-2384NwnjqbvJzbdg screening for suspected conditions (not mental disorders or infectious disease) (15 sources)Patient encounter status; Translations: [Encounter for screening for malignant neoplasm of colon]Onset: 868416-80-7321BwaxhpwaLvmtx upper respiratory infections (3 sources)Acute maxillary sinusitis, unspecified; Translations: [Acute maxillary sinusitis]EpisodicResidual codes; unclassified (5 sources)Postmenopausal state; Translations: [Asymptomatic menopausal state] Resolved: 975010-14-9120ZcnmqrrfPtrejgae lupus erythematosus and connective tissue disorders (16 sources)Systemic sclerosis, unspecified; Translations: [Scleroderma]Onset: 22-29-0166Jophykb Past or Other Problems Problem ClassificationProblemDateDocumented DateEpisodic/ChronicAbdominal pain (1 source)Pelvic and perineal pain; Translations: [Pelvic and perineal pain] Resolved: 49-56-5005CalbojomNpojudvefl disorders (2 sources)Atrophic vaginitis; Translations: [Postmenopausal atrophic vaginitis] Resolved: 74-19-6941UlbxtryVromw aftercare (1 source)History and physical examination, follow-up; Translations: [Encounter for follow-up examination after completed treatment for conditions other than malignant neoplasm] Resolved: 84-54-1525WkqjpnuoWblhc female genital disorders (1 source)Noninflammatory disorder of the vagina; Translations: [Other specified noninflammatory disorders ofvagina] Resolved: 97-46-7729EhlphmbqAzqrh nutritional; endocrine; and metabolic disorders (1 source)Underweight; Translations: [Underweight] Resolved: 59-59-0597YjrwehllZupbihms of female genital organs (1 source)Uterovaginal prolapse; Translations: [Uterovaginal prolapse, unspecified] Resolved: 38-90-2113BpizvsqKwwzmlsk codes; unclassified (1 source)Family history of malignant neoplasm of breast; Translations: [FAMILY HX MALIG NEOPLASM OF BREAST]Onset: 97-95-1271AkilgtnxSwvzvsre codes; unclassified (1 source)Requires influenza virus vaccination; Translations: [Need for prophylactic vaccination and inoculation, Influenza]Onset: 72-18-0424Wrnaftbi Spondylosis; intervertebral disc disorders; other back problems (1 source)Low back pain; Translations: [Lumbago]Onset: 72-24-4426Wjmymtsi Results Test NameValueInterpretationReference RangeFacilityMM TOMOSYNTHESIS SCREENING BI on 84-00-6078[place] [address] Mammography Report Signed Patient: SIERRA ASHLEY MR#: [id number] : 1965 Acct:[id number] Age/Sex: 59 / F ADM Date: 12/19/24 Loc: MAMMO Attending Dr: Stephanie Reed Ordering Physician: Stepahnie Reed Results: Date of Service: 12/19/24 Follow Up: Procedure(s): MM tomosynthesis screening BI Accession Number(s): [id number] cc: Stephanie Reed; Physician,Non-Staff MConstantino Patient Name: SIERRA ASHLEY MR#: [id number] : 1965 Exam Date: 12/19/2024 Ordering Doctor: JAD REED . RADIOLOGY REPORT PROCEDURE: MM TOMOSYNTHESIS SCREENING BI COMPARISON: MM TOMOSYNTHESIS SCREENING BI, 12/18/2023. MM TOMOSYNTHESIS SCREENING BI, 12/05/2022. MG MAMM SCREEN 3D PATRICA CAD, 11/14/2021. MG MAMM PATRICA DIAG W CAD DIG, 07/13/2012. INDICATIONS: screening Calculator Name NCI Breast Cancer Risk Assessment Tool 5 Year Breast Cancer Risk 3.50% Lifetime Breast Cancer Risk 18.00% Personal Breast Cancer No Personal Ovarian Cancer No Treatments None Family Cancers Sister with breast cancer at age 69; Aunt-maternal with breast cancer at age 60; Aunt-maternal with breast cancer at age 60. LOCATION: [facility] BREAST COMPOSITION: The breasts are extremely dense, which lowers the sensitivity of mammography. FINDINGS: RIGHT BREAST: No significant suspicious finding. There are several focal asymmetries. LEFT BREAST: No significant suspicious finding. There are similar focal asymmetries . DIAGNOSTIC CATEGORY 2--BENIGN FINDING. NO CHANGE FROM COMPARISON. RECOMMENDATIONS: ROUTINE MAMMOGRAM AND CLINICAL EVALUATION IN 12 MONTHS. Dictated by: Jay Thomas MD on 12/19/2024 at 14:18 Approved by: Jay Thomas MD on 12/19/2024 at 14:19 Dictated By: Jay Thomas M.D. Signed By: 12/19/24 1421 DD/ 1419 TD/TT: Nutrition Program Instructor:TBHRadiology, RadiologistMD - 01/10/2025 [place] [address] Mammography Report Signed Patient: SIERRA ASHLEY MR#: [id number] : 1965 Acct:[id number] Age/Sex: 59 / F ADM Date: 12/19/24 Loc: MAMMO Attending Dr: Stephanie Reed Ordering Physician: Stephanie Reed Results: Date of Service: 12/19/24 Follow Up: Procedure(s): MM tomosynthesis screening BI Accession Number(s): [id number] cc: Stephanie Reed; Physician,Non-Staff M.D. Patient Name: SIERRA ASHLEY MR#: [id number] : 1965 Exam Date: 12/19/2024 Ordering Doctor: JAD REED . RADIOLOGY REPORT PROCEDURE: MM TOMOSYNTHESIS SCREENING BI COMPARISON: MM TOMOSYNTHESIS SCREENING BI, 12/18/2023. MM TOMOSYNTHESIS SCREENING BI, 12/05/2022. MG MAMM SCREEN 3D PATRICA CAD, 11/14/2021. MG MAMM PATRICA DIAG W CAD DIG, 07/13/2012. INDICATIONS: screening Calculator Name NCI Breast Cancer Risk Assessment Tool 5 Year Breast Cancer Risk 3.50% Lifetime Breast Cancer Risk 18.00% Personal Breast Cancer No Personal Ovarian Cancer No Treatments None Family Cancers Sister with breast cancer at age 69; Aunt-maternal with breast cancer at age 60; Aunt-maternal with breast cancer at age 60. LOCATION: [facility] BREAST COMPOSITION: The breasts are extremely dense, which lowers the sensitivity of mammography. FINDINGS: RIGHT BREAST: No significant suspicious finding. There are several focal asymmetries. LEFT BREAST: No significant suspicious finding. There are similar focal asymmetries . DIAGNOSTIC CATEGORY 2--BENIGN FINDING. NO CHANGE FROM COMPARISON. RECOMMENDATIONS: ROUTINE MAMMOGRAM AND CLINICAL EVALUATION IN 12 MONTHS. Dictated by: Jay Thomas MD on 12/19/2024 at 14:18 Approved by: Jay Thomas MD on 12/19/2024 at 14:19 Dictated By: Jay Thomas M.D. Signed By: 12/19/24 1421 DD/ 1419 TD/TT: Nutrition Program Instructor: SULEMA HealthcareRadiology Study observation (narrative)[facility] TOMOSYNTHESIS SCREENING BIOrdered By: Radiologist Radiology on 05-58-7412L[facility] Work Phone: IGP,APTIMA HPV,AGE GDLNon 77-87-7745YMD GDLN ACOG TESTINGNote.NOMS HealthcareComment on above:TESTS RESULT FLAG UNITS REF RANGE LAB Clinician Provided Cytology Information Source.............Vagina No. of containers..01 ThinPrep Vial Age Algo ACOG Liz... FLAG LEGEND: L-Low Normal,H-High Normal,LL-Alert Low,HH-Alert High <-Panic Low,>-Panic High,A-Abnormal,AA-Critical Abnormal Performed at: 01 =[address] [address] Betsy Harris MD, HPV APTIMANegativeNegativeNOMS HealthcareComment on above:This nucleic acid amplification test detects fourteen high- risk HPV types (16,18,31,33,35,39,45,51,52,56,58,59,66,68) without differentiation. Performed at: =[address] [id number] [employer] Worker: Btesy Harris MD, Phone: [phone] Performed at: [address] [id number] [employer] Worker: Betsy Harris MD, Phone: [phone] IGP, APTIMA HPV, RFX 16/18,45Note.NOMS HealthcareComment on above:TESTS RESULT FLAG UNITS REF RANGE LAB DIAGNOSIS: 02 NEGATIVE FOR INTRAEPITHELIAL LESION OR MALIGNANCY. REACTIVE CELLULAR CHANGES AND/OR REPAIR ARE PRESENT. CELLULAR CHANGES ASSOCIATED WITH ATROPHY ARE PRESENT. Specimen adequacy: 02 Satisfactory for evaluation. Endocervical component may not be distinguished in cases of atrophy. Performed by: 02 Savanah Brower, Volunteer Services Manager (ASCP) Electronically si... Meghan Talley MD, Pathologist . 02 Note: [...] Low,>-Panic High,A-Abnormal,AA-Critical Abnormal Performed at: [address] [place] [address] Betsy Harris MD, SPATULA-ALONE VAGINA CLINISYNCNOHedrick Medical Center TOMOSYNTHESIS SCREENING BIon 48-15-8827Ct[address] [address] Mammography Report Signed Patient: SIERRA ASHLEY MR#: [id number] : 1965 Acct:[id number] Age/Sex: 58 / F ADM Date: 12/18/23 Loc: MAMMO Attending Dr: Stephanie Reed Ordering Physician: Stephanie Reed Results: Date of Service: 12/18/23 Follow Up: Procedure(s): MM tomosynthesis screening BI Accession Number(s): [id number] cc: Stephanie Reed; Physician,Non-Staff M.D. Patient Name: SIERRA ASHLEY MR#: [id number] : 1965 Exam Date: 12/18/2023 Ordering Doctor: [...] breast cancer at age 60. LOCATION: [facility] BREAST COMPOSITION: The breasts are [...] Signed By: 12/18/23 1249 DD/ 1248 TD/TT: Nutrition Program Instructor:TBHRadiology, RadiologistMD - 12/18/2023 [place] [address] Mammography Report Signed Patient: SIERRA ASHLEY MR#: [id number] : 1965 Acct:[id number] Age/Sex: 58 / F ADM Date: 12/18/23 Loc: MAMMO Attending Dr: Stephanie Reed Ordering Physician: Stephanie Reed Results: Date of Service: 12/18/23 Follow Up: Procedure(s): MM tomosynthesis screening BI Accession Number(s): [id number] cc: Stephanie Reed; Physician,Non-Staff M.D. Patient Name: SIERRA ASHLEY MR#: [id number] : 1965 Exam Date: 12/18/2023 Ordering Doctor: [...] breast cancer at age 60. LOCATION: [facility] BREAST COMPOSITION: The breasts are [...] Signed By: 12/18/23 1249 DD/ 1248 TD/TT: Nutrition Program Instructor: [facility] CenterRadiology Study observation (narrative)[facility] TOMOSYNTHESIS SCREENING BIOrdered By: Radiologist Radiology on 72-80-6867POBK [employer] Work Phone: c3 and C4 COMPLEMENTon 88-37-3206Thzgbvxqlc C3, Serum 99 mg/zWKdtuhw00-597Yuu [facility] HospitalComment on above:Performed By: #### VITAD #### [facility] [address] [place] [address] Dr. Garfield Dyeplement C4, Serum14 mg/nSHrmnua98-29BttCincinnati Children'S Hospital Medical Center Comment on above:Performed By: #### VITAD #### [facility] [address] [place] [address] Dr. Garfield DyePLEMENT TOTAL (CH50)on 79-00-1485Wxpyafcvzm, Total (CH50)>60 Normal>41The [facility] HospitalComment on above:Result Comment: Age Male Female [...] of range values.Performed By: #### CH50T #### [facility] [address] [place] [address] Dr. Garfield Viramontes AUTO DIFFon 12-76-2740HLWB #0.0 103/ulNormal0.0-0.1[facility] Medical CenterCommymichigan medical center sault on above:Performed By: #### CBC #### [facility] [address] [place] [address] Dr. Garfield NelsonBasophils/100 WBC (Bld)0.4 %Normal0.2-2.0[facility] Comment on above:Performed By: #### CBC #### [facility] [address] [place] [address] Dr. Garfield Michelle #0.1 103/ulNormal0.0-0.7The [facility] HospitalComment on above: Performed By: #### CBC #### [facility] [address] [place] [address] Dr. Garfield Grimaldoosinophils/100 WBC (Bld)1.1 %Normal0.9-7.0[facility] Comment on above:Performed By: #### CBC #### [facility] [address] [place] [address] Dr. Garfield Grimaldorythrocyte distribution width (RBC) [Ratio]14.9 %Pkoqxx26.0-15.0 The [facility] HospitalComment on above:Performed By: #### CBC #### [facility] [address] [place] [address] Dr. Garfield NelsonHematocrit (Bld) [Volume fraction]38.3 %Wmmuhc19.0-48.0The [facility] HospitalComment on above:Performed By: #### CBC #### [facility] [address] [place] [address] Dr. Garfield NelsonHemoglobin (Bld) [Mass/Vol]12.2 g/iGLaaybd76.0-16.0The [facility] HospitalComment on above:Performed By: #### CBC #### [facility] [address] [place] [address] Dr. Garfield NelsonIG #0.03 10e3/ulNormal0.00-0.03The [facility] HospitalComment on above:Performed By: #### CBC #### [facility] [address] [place] [address] Dr. Garfield NelsonIG %0.3 %Normal0.0-0.5The [facility] HospitalComment on above: Performed By: #### CBC #### [facility] [address] [place] [address] Dr. Garfield KellyMPH #2.1 103/ulNormal1.2-3.8The [facility] HospitalComment on above:Performed By: #### CBC #### [facility] [address] [place] [address] Dr. Garfield Kellymphocytes/100 WBC (Bld)22.6 %Snvjcy05.5-60.0The [facility] HospitalComment on above:Performed By: #### CBC #### [facility] [address] [place] [address] Dr. Garfield Leon DIFF REQNONormalThe [facility] HospitalComment on above: Performed By: #### CBC #### [facility] [address] [place] [address] Dr. Garfield Fritz (RBC) [Entitic mass]28.5 vqPgsvkb29.7-34.0The [facility] HospitalComment on above:Performed By: #### CBC #### [facility] [address] [place] [address] Dr. Garfield Fritz (RBC) [Mass/Vol]31.9 g/eQPzweqt37.9-35.2The [facility] HospitalComment on above:Performed By: #### CBC #### [facility] [address] [place] [address] Dr. Garfield Fritz (RBC) [Entitic vol]89.5 yOEuhkee58.0-99.0The [facility] HospitalComment on above:Performed By: #### CBC #### [facility] [address] [place] [address] Dr. Garfield Baker #1.0 103/ulCritically high0.3-0.8ThCherrington Hospital Comment on above:Performed By: #### CBC #### [facility] [address] [place] [address] Dr. Garfield Bajwaocytes/100 WBC (Bld)10.5 %Normal1.7-12.0[facility] Comment on above:Performed By: #### CBC #### [facility] [address] [place] [address] Dr. Garfield Roman #6.1 103/ulNormal1.4-6.5The [facility] HospitalComment on above:Performed By: #### CBC #### [facility] [address] [place] [address] Dr. Garfield Acevesutrophils/100 WBC (Bld)65.1 %Jsthzp30.0-75.0The [facility] HospitalComment on above:Performed By: #### CBC #### [facility] [address] [place] [address] Dr. Garfield NelsonPlatelet mean volume (Bld) [Entitic vol]12.1 fLNormal9.5-13.5The [facility] HospitalComment on above:Performed By: #### CBC #### [facility] [address] [place] [address] Dr. Garfield NelsonPLT276 103/bzTfjofm807-140Xyd [facility] HospitalComment on above: Performed By: #### CBC #### [facility] [address] [place] [address] Dr. Garfield NelsonRBC4.28 106/ulNormal4.20-5.40The [facility] HospitalComment on above:Performed By: #### CBC #### [facility] [address] [place] [address] Dr. Garfield NelsonWBC9.4 103/ulNormal4.0-11.0The [facility] HospitalComment on above: Performed By: #### CBC #### [facility] [address] [place] [address] Dr. Garfield NelsonMAGNESIUMon 58-56-0297Mqhmauadk [Mass/Vol]2.0 mg/dLNormal1.8-2.4 The [facility] HospitalCommymichigan medical center sault on above:Performed By: #### VITAD #### [facility] [address] [place] [address] Dr. Garfield NelsonPHOSPHORUSon 26-09-8529Hklzeytmv [Mass/Vol]3.0 mg/dLNormal2.6-4.7 [facility] on above:Performed By: #### VITAD #### [facility] [address] [place] [address] Dr. Garfield NelsonPROF 14(COMP METB)on 95-01-6422Dtbmmdw [Mass/Vol]3.8 g/dLNormal 3.4-5.0The [facility] HospitalComment on above:Performed By: #### VITAD #### [facility] [address] [place] [address] Dr. Yilan ChangAlbumin/Globulin [Mass ratio]1.0 {ratio}NormalThe [facility] HospitalComment on above:Performed By: #### VITAD #### [facility] [address] [place] [address] Dr. Garfield Larson [Catalytic activity/Vol]93 U/ZKrfxnl76-666Igi [facility] HospitalCommymichigan medical center sault on above:Performed By: #### VITAD #### [facility] [address] [place] [address] Dr. Garfield Arrington [Catalytic activity/Vol]19 U/TOjdvot07-21Rra [facility] HospitalComment on above:Performed By: #### VITAD #### [facility] [address] [place] [address] Dr. Gafrield Hardy gap [Moles/Vol]9.5 mmol/LNormalThe [facility] HospitalComment on above:Performed By: #### VITAD #### [facility] [address] [place] [address] Dr. Garfield NelsonAST [Catalytic activity/Vol]22 U/LZevflp88-44Xae [facility]ita Health Systemment on above:Performed By: #### VITAD #### [facility] [address] [place] [address] Dr. Garfield NelsonBilirubin [Mass/Vol]0.3 mg/dLNormal0.2-1.0The [facility] Comment on above:Performed By: #### VITAD #### [facility] [address] [place] [address] Dr. Garfield NelsonCalcium [Mass/Vol]8.7 mg/dLNormal8.5-10.1The [facility] Comment on above:Performed By: #### VITAD #### [facility] [address] [place] [address] Dr. Garfield NelsonChloride [Moles/Vol]104 mmol/BHsoozj95-142Eoh [facility] Comment on above:Performed By: #### VITAD #### [facility] [address] [place] [address] Dr. Garfield NelsonCO2 [Moles/Vol]29.0 mmol/YDpwikc78.0-32.0[facility] Comment on above:Performed By: #### VITAD #### [facility] [address] [address] [address] Garfield NelsonCreatinine [Mass/Vol]0.65 mg/dLNormal0.55-1.02[facility] Medical CenterComment on above:Performed By: #### VITAD #### [facility] [address] [address] [address] Garfield GrimaldoGFR-AF KENYAN>60Normal>=60The [facility] HospitalComment on above:Performed By: #### VITAD #### [facility] [address] [address] [address] Garfield Wong-NON AF KENYAN>60Normal>=60C[facility]'S Hospital Medical CenterComment on above:Performed By: #### VITAD #### [facility] [address] [address] [address] Garfield NelsonGlobulin (S) [Mass/Vol]3.8 g/dLNormalThe [facility] HospitalComment on above:Performed By: #### VITAD #### [facility] [address] [address] [address] Garfield NelsonGlucose [Mass/Vol]87 mg/sIEbgtij73-723XvzCincinnati Children'S Hospital [facility] Center Comment on above:Performed By: #### VITAD #### [facility] [address] [address] [address] Garfield NelsonPotassium [Moles/Vol]3.5 mmol/LNormal3.5-5.1The [facility] Comment on above:Performed By: #### VITAD #### [facility] [address] [address] [address] Garfield NelsonProtein [Mass/Vol]7.6 g/dLNormal6.4-8.2[facility] Comment on above:Performed By: #### VITAD #### [facility] [address] [address] [address] Garfield NelsonSodium [Moles/Vol]139 mmol/PDiiufv397-031YvmCincinnati Children'S Hospital Medical Center Comment on above:Performed By: #### VITAD #### [facility] [address] [address] [address] Garfield Guerra nitrogen [Mass/Vol]15.0 mg/dLNormal7.0-18.0[facility] Medical CenterComment on above:Performed By: #### VITAD #### [facility] [address] [address] [address] Garfield Guerra nitrogen/Creatinine [Mass ratio]23.1 mg/mgNormalThe [facility] HospitalComment on above:Performed By: #### VITAD #### [facility] [address] [address] [address] Garfield Davila RATE EDWARDSERGRENon 31-27-9036MRT RATE39 mm/hrCritically high <=30[facility] Medical CenterComment on above:Performed By: #### MG, PHOS, CMP #### [facility] [address] [address] [address] Garfield Garcia RANDOM W/MICROSCOPICon 94-22-1798WPWJQCFSNBGZ SEENNormalNONE SEENCincinnati Children'S Hospital Medical CenterComment on above:Performed By: #### CSUITE #### [facility] [address] [address] [address] Garfield Ayala Ql (U)NegativeNormalNEGATIVECincinnati Children'S Hospital Medical Center Comment on above:Performed By: #### CSUITE #### [facility] [address] [address] [address] Garfield Morales SEENNormalNONE SEENCincinnati Children'S Hospital Medical CenterComment on above:Performed By: #### CSUITE #### [facility] [address] [address] [address] Garfield Rodriguez (U)CLEARNormalCLEARCincinnati Children'S Hospital Medical CenterComment on above: Performed By: #### CSUITE #### [facility] [address] [address] [address] Garfield Blancas (U)LT. YELLOWNormalYELLOWCincinnati Children'S Hospital Medical CenterComment on above:Performed By: #### CSUITE #### [facility] [address] [address] [address] Garfield NelsonCrystals LM Nom (Urine sed)NONE SEENNormalNONE SEENCincinnati Children'S Hospital Medical CenterComment on above:Performed By: #### CSUITE #### [facility] [address] [place] [address] Dr. Merrill ChangEpithelial cells LM Ql (Urine sed)RARENormalNONE SEEN /RARECincinnati Children'S Hospital Medical CenterComment on above:Performed By: #### CSUITE #### [facility] [address] [place] [address] Dr. Garfield NelsonGlucose Ql (U)NegativeNormalNEGATIVECincinnati Children'S Hospital Medical CenterComment on above:Performed By: #### CSUITE #### [facility] [address] [place] [address] Dr. Garfield NelsonHemoglobin Ql (U)NegativeNormalNEGATIVEKettering Health [place]burg on above:Performed By: #### CSBIJALE #### [facility] [address] [place] [address] Dr. Garfield NelsonKetones Ql (U)NegativeNormalNEGATIVECincinnati Children'S Hospital Medical CenterComment on above:Performed By: #### CSBIJALE #### [facility] [address] [place] [address] Dr. Garfield NelsonLEUKOCYTESNegativeNormalNEGATIVECincinnati Children'S Hospital Medical CenterCommymichigan medical center sault on above:Performed By: #### CSBIJALE #### [facility] [address] [place] [address] Dr. Garfield NelsonMUCOUSNONE SEENNormalNONE SEENCincinnati Children'S Hospital Medical CenterComment on above:Performed By: #### CSBIJALE #### [facility] [address] [place] [address] Dr. Garfield NelsonNitrite Ql (U)NegativeNormalNEGATIVECincinnati Children'S Hospital Medical CenterComment on above:Performed By: #### CSUITE #### [facility] [address] [place] [address] Dr. Garfield NelsonpH (U)7.0 [pH]Normal5-9The [facility] HospitalComment on above: Performed By: #### CSUITE #### [facility] [address] [place] [address] Dr. Garfield NelsonRBCNONE SEENAbnormal0-2The [facility] HospitalComment on above: Performed By: #### CSUITE #### [facility] [address] [place] [address] Dr. Garfield NelsonSPEC GRAVITY<=1.078Lovbsglb5.005-<=1.025[facility] Comment on above:Performed By: #### CSUITE #### [facility] [address] [place] [address] Dr. Garfield Garcia PROTEINNegativeNormalNEGATIVE/ TRACEThe [facility] Comment on above:Performed By: #### CSBIJALE #### [facility] [address] [place] [address] Dr. Garfield Ordazbilinogen Qn (U)0.2 {Marquise'U}/dLNormal0.2 - 1.0The [facility] HospitalComment on above:Performed By: #### CSBIJALE #### [facility] [address] [place] [address] Dr. Garfield Kelley SEENNormalNONE SEENCincinnati Children'S Hospital Medical CenterComment on above: Performed By: #### CSBIJALE #### [facility] [address] [place] [address] Dr. Garfield NelsonC3 and C4 COMPLEMENTon 06-93-7082Zdfgwxjhnz C3, Iggsh135 mg/dL Zalkrx54-790Djr [facility] HospitalComment on above:Performed By: #### VITAD #### [facility] [address] [place] [address] Dr. Garfield Camejo C4, Serum20 mg/tRCqjqbq97-19Grn [facility] Comment on above:Performed By: #### VITAD #### [facility] [address] [place] [address] Dr. Garfield Camejo TOTAL (CH50)on 68-71-8383Lbqjuudurc, Total (CH50)>60 Normal>41C[facility] Hospital Medical CenterComment on above:Result Comment: Age Male Female 1 [...] of range values.Performed By: #### CH50T #### [facility] [address] [place] [address] Dr. Garfield MckeonC AUTO DIFFon 37-46-5273LOMT #0.1 103/ulNormal0.0-0.1[facility] Medical CenterComment on above:Performed By: #### VITAD #### [facility] [address] [place] [address] Dr. Garfield NelsonBasophils/100 WBC (Bld)0.6 %Normal0.2-2.0[facility] Comment on above:Performed By: #### VITAD #### [facility] [address] [place] [address] Dr. Garfield Michelle #0.1 103/ulNormal0.0-0.7The [facility] HospitalComment on above: Performed By: #### VITAD #### [facility] [address] [place] [address] Dr. Garfield Grimaldoosinophils/100 WBC (Bld)1.4 %Normal0.9-7.0[facility] Comment on above:Performed By: #### VITAD #### [facility] [address] [place] [address] Dr. Garfield Grimaldorythrocyte distribution width (RBC) [Ratio]14.2 %Mzxhlm31.0-15.0 [facility] Medical CenterComment on above:Performed By: #### VITAD #### [facility] [address] [place] [address] Dr. Garfield NelsonHematocrit (Bld) [Volume fraction]39.1 %Nhrjhd30.0-48.0The [facility] HospitalComment on above:Performed By: #### VITAD #### [facility] [address] [place] [address] Dr. Garfield NelsonHemoglobin (Bld) [Mass/Vol]12.7 g/rYTkvgaz08.0-16.0The [facility] HospitalComment on above:Performed By: #### VITAD #### [facility] [address] [place] [address] Dr. Garfield Quiroz #0.02 10e3/ulNormal0.00-0.03The [facility] HospitalComment on above:Performed By: #### VITAD #### [facility] [address] [place] [address] Dr. Garfield Quiroz %0.2 %Normal0.0-0.5The [facility] HospitalComment on above: Performed By: #### VITAD #### [facility] [address] [place] [address] Dr. Garfield Huynh #2.0 103/ulNormal1.2-3.8The [facility] HospitalComment on above:Performed By: #### VITAD #### [facility] [address] [place] [address] Dr. Garfield Reddyhocytes/100 WBC (Bld)24.9 %Fmfepa01.5-60.0The [facility] HospitalComment on above:Performed By: #### VITAD #### [facility] [address] [place] [address] Dr. Garfield PraterUAL DIFF REQNONormalThe [facility] HospitalComment on above: Performed By: #### VITAD #### [facility] [address] [place] [address] Dr. Garfield Jean (RBC) [Entitic mass]28.5 bxGhiywp35.7-34.0The [facility] HospitalComment on above:Performed By: #### VITAD #### [facility] [address] [place] [address] Dr. Garfield FritzHC (RBC) [Mass/Vol]32.5 g/oYRjmfnq99.9-35.2The [facility] HospitalComment on above:Performed By: #### VITAD #### [facility] [address] [place] [address] Dr. Garfield Holcomb (RBC) [Entitic vol]87.7 jLEumwuw48.0-99.0The [facility] HospitalComment on above:Performed By: #### VITAD #### [facility] [address] [place] [address] Dr. Garfield Baker #1.0 103/ulCritically high0.3-0.8The [facility] Comment on above:Performed By: #### VITAD #### [facility] [address] [place] [address] Dr. Garfield Bajwaocytes/100 WBC (Bld)12.3 %Critically high1.7-12.0The [facility] HospitalComment on above:Performed By: #### VITAD #### [facility] [address] [place] [address] Dr. Garfield Roman #4.9 103/ulNormal1.4-6.5The [facility] HospitalComment on above:Performed By: #### VITAD #### [facility] [address] [place] [address] Dr. Garfield Acevesutrophils/100 WBC (Bld)60.6 %Nkeyfs66.0-75.0The [facility] HospitalComment on above:Performed By: #### VITAD #### [facility] [address] [place] [address] Dr. Garfield Paezlet mean volume (Bld) [Entitic vol]12.0 fLNormal9.5-13.5The [facility] HospitalComment on above:Performed By: #### VITAD #### [facility] [address] [place] [address] Dr. Garfield AyonT247 103/boBtxdjn500-240Fvj [facility] HospitalComment on above: Performed By: #### VITAD #### [facility] [address] [place] [address] Dr. Garfield NelsonRBC4.46 106/ulNormal4.20-5.40The [facility] HospitalComment on above:Performed By: #### VITAD #### [facility] [address] [place] [address] Dr. Garfield NelsonWBC8.1 103/ulNormal4.0-11.0The [facility] HospitalComment on above: Performed By: #### VITAD #### [facility] [address] [place] [address] Dr. Garfield NelsonMAGNESIUMon 33-49-9165Welvwrgcn [Mass/Vol]2.0 mg/dLNormal1.8-2.4 The [facility] HospitalComment on above:Performed By: #### MG PHOS, CMP #### [facility] [address] [place] [address] Dr. Garfield NelsonPHOSPHORUSon 91-80-2168Dpjgbkewf [Mass/Vol]3.6 mg/dLNormal2.6-4.7 The [facility] HospitalComment on above:Performed By: #### MG, PHOS, CMP #### [facility] [address] [place] [address] Dr. Garfield NelsonPRODalila 14(COMP METB)on 47-93-5196Ppbtspv [Mass/Vol]3.8 g/dLNormal 3.4-5.0The [facility] HospitalComment on above:Performed By: #### MG, PHOS, CMP #### [facility] [address] [place] [address] Dr. Garfield NelsonAlbumin/Globulin [Mass ratio]1.0 {ratio}NormalThe [facility] on above:Performed By: #### MG, PHOS, CMP #### [facility] [address] [place] [address] Dr. Garfield TorresP [Catalytic activity/Vol]69 U/KLlmwyg09-346Mby [facility] HospitalComment on above:Performed By: #### MG, PHOS, CMP #### [facility] [address] [address] [address] Garfield TorresT [Catalytic activity/Vol]14 U/EEwhcls34-79Tep [facility] HospitalComment on above:Performed By: #### MG, PHOS, CMP #### [facility] [address] [place] [address] Dr. Garfield NelsonAnion gap [Moles/Vol]12.4 mmol/LNormalThe [facility] Comment on above:Performed By: #### MG, PHOS, CMP #### [facility] [address] [place] [address] Dr. Garfield NelsonAST [Catalytic activity/Vol]22 U/QBrghkg37-72Ywq [facility] HospitalComment on above:Performed By: #### MG, PHOS, CMP #### [facility] [address] [place] [address] Dr. Garfield NelsonBilirubin [Mass/Vol]0.3 mg/dLNormal0.2-1.0The [facility] Comment on above:Performed By: #### MG, PHOS, CMP #### [facility] [address] [place] [address] Dr. Garfield NelsonCalcium [Mass/Vol]8.6 mg/dLNormal8.5-10.1[facility] Comment on above:Performed By: #### MG, PHOS, CMP #### [facility] [address] [place] [address] Dr. Garfield NelsonChloride [Moles/Vol]101 mmol/RZcclli94-595Lgo [facility] Comment on above:Performed By: #### MG, PHOS, CMP #### [facility] [address] [place] [address] Dr. Garfield NelsonCO2 [Moles/Vol]29.4 mmol/COxuchj24.0-32.0The [facility] Comment on above:Performed By: #### MG, PHOS, CMP #### [facility] [address] [place] [address] Dr. Garfield NelsonCreatinine [Mass/Vol]0.79 mg/dLNormal0.55-1.02The Jose HospitalComment on above:Performed By: #### MG, PHOS, CMP #### [facility] [address] [address] [address] Garfield GrimaldoGFR-AF KENYAN>60Normal>=60The [facility] HospitalComment on above:Performed By: #### MG, PHOS, CMP #### [facility] [address] [address] [address] Garfield GrimaldoGFR-NON AF KENYAN>60Normal>=60The [facility] HospitalComment on above:Performed By: #### MG, PHOS, CMP #### [facility] [address] [address] [address] Garfield NelsonGlobulin (S) [Mass/Vol]3.9 g/dLNormalThe [facility] HospitalComment on above:Performed By: #### MG, PHOS, CMP #### [facility] [address] [place] [address] Dr. Garfield NelsonGlucose [Mass/Vol]109 mg/dLCritically meux37-755Gns [facility] Systemment on above:Performed By: #### MG, PHOS, CMP #### [facility] [address] [place] [address] Dr. Garfield NelsonPotassium [Moles/Vol]3.8 mmol/LNormal3.5-5.1[facility] Comment on above:Performed By: #### MG, PHOS, CMP #### [facility] [address] [place] [address] Dr. Garfield NelsonProtein [Mass/Vol]7.7 g/dLNormal6.4-8.2The [facility] Comment on above:Performed By: #### MG, PHOS, CMP #### [facility] [address] [place] [address] Dr. Garfield NelsonSodium [Moles/Vol]139 mmol/EHlhwoi554-238TcfCincinnati Children'S Hospital [facility] Center Comment on above:Performed By: #### MG, PHOS, CMP #### [facility] [address] [place] [address] Dr. Yilan ChangUrea nitrogen [Mass/Vol]17.0 mg/dLNormal7.0-18.0[facility] Hospitalment on above:Performed By: #### MGDAVIDS, CMP #### [facility] [address] [address] [address] Garfield Guerra nitrogen/Creatinine [Mass ratio]21.5 mg/mgNormalThe [facility] HospitalComment on above:Performed By: #### MGDAVIDS, CMP #### [facility] [address] [address] [address] Garfield Davila [facility]ITALREN 33-41-0617VGD RATE40 mm/hrCritically high <=30The [facility] HospitalComment on above:Performed By: #### CSUITE #### [facility] [address] [place] [address] Dr. Garfield Garcia RANDOM W/MICROSCOPICon 64-05-4077XQWPNBJNIUHI SEENNormalNONE SEENCincinnati Children'S Hospital Medical CenterComment on above:Performed By: #### CSUITE #### [facility] [address] [address] [address] Garfield Ayala Ql (U)NegativeNormalNEGATIVEThe [facility] Comment on above:Performed By: #### CSUITE #### [facility] [address] [place] [address] Dr. Garfield Morales SEENNormalNONE SEENCincinnati Children'S Hospital Medical CenterComment on above:Performed By: #### CSUITE #### [facility] [address] [address] [address] Garfield Rodriguez (U)CLEARNormalCLEARCincinnati Children'S Hospital Medical CenterComment on above: Performed By: #### CSUITE #### [facility] [address] [place] [address] Dr. Garfield Blancas (U)LT. YELLOWNormalYELLOWCincinnati Children'S Hospital Medical CenterComment on above:Performed By: #### CSUITE #### [facility] [address] [place] [address] Dr. Yilan ChangCrystals LM Nom (Urine sed)NONE SEENNormalNONE SEENCincinnati Children'S Hospital Medical CenterComment on above:Performed By: #### CSUITE #### [facility] [address] [place] [address] Dr. Garfield Grimaldopithelial cells LM Ql (Urine sed)NONE SEENNormalNONE SEEN /RARE The [facility] HospitalComment on above:Performed By: #### CSUITE #### [facility] [address] [place] [address] Dr. Garfield NelsonGlucose Ql (U)NegativeNormalNEGATIVECincinnati Children'S Hospital Medical CenterComment on above:Performed By: #### CSUITE #### [facility] [address] [place] [address] Dr. Garfield NelsonHemoglobin Ql (U)NegativeNormalNEGATIVEKettering Health [place] on above:Performed By: #### CSUITE #### [facility] [address] [place] [address] Dr. Garfield NelsonKetones Ql (U)NegativeNormalNEGATIVECincinnati Children'S Hospital Medical CenterComment on above:Performed By: #### CSUITE #### [facility] [address] [place] [address] Dr. Garfield NelsonLEUKOCYTESNegativeNormalNEGATIVECincinnati Children'S Hospital Medical CenterCommymichigan medical center sault on above:Performed By: #### CSUITE #### [facility] [address] [place] [address] Dr. Garfield NelsonMUCOUSNONE SEENNormalNONE SEENCincinnati Children'S Hospital Medical CenterComment on above:Performed By: #### CSUITE #### [facility] [address] [place] [address] Dr. Garfield Fitzpatricktrite Ql (U)NegativeNormalNEGATIVECincinnati Children'S Hospital Medical CenterComment on above:Performed By: #### CSUITE #### [facility] [address] [place] [address] Dr. Garfield NelsonpH (U)6.0 [pH]Normal5-9[facility] Medical CenterComment on above: Performed By: #### CSUITE #### [facility] [address] [address] [address] Garfield NelsonQlkzjSKW2-6Kvvwiu1-8Cdq [facility] HospitalComment on above:Performed By: #### CSUITE #### [facility] [address] [address] [address] Garfield NelsonSPEC GRAVITY1.936Daooyw0.005-<=1.025The [facility] HospitalComment on above:Performed By: #### CSUITE #### [facility] [address] [address] [address] Garfield Garcia PROTEINNegativeNormalNEGATIVE/ TRACEThe [facility] Comment on above:Performed By: #### CSUITE #### [facility] [address] [place] [address] Dr. Garfield Ordazbilinogen Qn (U)0.2 {Marquise'U}/dLNormal0.2 - 1.0The [facility] HospitalComment on above:Performed By: #### CSUITE #### [facility] [address] [place] [address] Dr. Garfield NelsonWBCNONE SEENNormalNONE SEENThe [facility] HospitalComment on above: Performed By: #### CSUITE #### [facility] [address] [place] [address] Dr. Garfield Kraft echo transthoracicon 39-49-2630YTL echo transthoracic [facility] [address] Echocardiogram Signed Patient: Sierra Ashley MR#: [id number] : 1965 Acct:[id number] Age/Sex: 56 / F ADM Date: 01/02/22 Loc: Room: Type: [facility] Attending Dr: Patricia SALEH Ordering Provider: THERESE Shaw Date of Service: 01/02/22/ ECH/ECH echo transthoracic: Pulmonary fibrosis. PHTN. 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 Copies to: Mayte Castro MD, FACC THERESE Shaw BSA: 1.5 m2 BP: 115/83 mmHg HR: 75 Reason For Study: Pulmonary fibrosis. PHTN. SOB. long-term drug therapy. History: pulmonary hypertension Interpretation Summary [...] 01/02/22 1254 Signed By: Mayte Castro MD, [facility] 01/02/22 1417[facility] ACOG PANEL 2: 30 to 65on 12-23-2021..NormalCincinnati Children'S Hospital Medical CenterComment on above:Result Comment: Performed at: WBPerformed By: #### MG, PHOS, CMP #### [facility] [address] [place] [address] Dr. Garfield NelsonAge Gdln ACOG Nlegdba97-78YegudiMomSuburban Community Hospital & Brentwood HospitalComment on above:Performed By: #### MG, PHOS, CMP #### [facility] [address] [place] [address] Dr. Garfield NelsonDIAGNOSIS:CommentEast Liverpool City Hospital on above: Result Comment: NEGATIVE FOR INTRAEPITHELIAL LESION OR MALIGNANCY. CELLULAR CHANGES ASSOCIATED WITH ATROPHY ARE PRESENT. Performed at: WBPerformed By: #### MG, PHOS, CMP #### [facility] [address] [place] [address] Dr. Garfield NelsonHPV AptimaNegativeNormalNegativeCincinnati Children'S Hospital Medical CenterCommymichigan medical center sault on above:Result Comment: This nucleic acid amplification test detects fourteen high-risk HPV types (16,18,31,33,35,39,45,51,52,56,58,59,66,68) without differentiation. Performed at: =GPerformed By: #### MG, PHOS, CMP #### [facility] [address] [place] [address] Dr. Garfield NelsonMethodology:CommentEast Liverpool City Hospital on above: Result Comment: This liquid based ThinPrep(R) pap test was screened with the use of an image guided system. Performed at: WBPerformed By: #### MG, PHOS, CMP #### [facility] [address] [place] [address] Dr. Garfield NlesonNote:CommentEast Liverpool City Hospital on above:Result Comment: The Pap smear is a screening test designed to aid in the detection of premalignant and malignant conditions of the uterine cervix. It is not a diagnostic procedure and should not be used as the sole means of detecting cervical cancer. Both false-positive and false-negative reports do occur. . Performed at: WBPerformed By: #### MG, PHOS, CMP #### [facility] [address] [place] [address] Dr. Garfield NelsonPerformed by:CommentEast Liverpool City Hospital on above: Result Comment: Veronique Noble, Volunteer Services Manager (ASCP) Performed at: WBPerformed By: #### MG, PHOS, CMP #### [facility] [address] [place] [address] Dr. Garfield NelsonSpecimen adequacy:CommentEast Liverpool City Hospital on above:Result Comment: Satisfactory for evaluation. Endocervical component may not be distinguished in cases of atrophy. Performed at: WBPerformed By: #### MG, PHOS, CMP #### [facility] [address] [place] [address] Dr. Garfield Viramontes AUTO DIFFon [id number] #0.0 103/ulNormal0.0-0.1The [facility] HospitalComment on above:Performed By: #### VITAD #### [facility] [address] [place] [address] Dr. Garfield Vigilsophils/100 WBC (Bld)0.6 %Normal0.2-2.0[facility] Comment on above:Performed By: #### VITAD #### [facility] [address] [place] [address] Dr. Garfield Michelle #0.2 103/ulNormal0.0-0.7The [facility] HospitalComment on above: Performed By: #### VITAD #### [facility] [address] [place] [address] Dr. Garfield Grimaldoosinophils/100 WBC (Bld)2.8 %Normal0.9-7.0The [facility] Comment on above:Performed By: #### VITAD #### [facility] [address] [place] [address] Dr. Garfield Grimaldorythrocyte distribution width (RBC) [Ratio]14.0 %Wyziwj67.0-15.0 The [facility] HospitalComment on above:Performed By: #### VITAD #### [facility] [address] [place] [address] Dr. Garfield NelsonHematocrit (Bld) [Volume fraction]42.3 %Bdepzj38.0-48.0The [facility] HospitalComment on above:Performed By: #### VITAD #### [facility] [address] [place] [address] Dr. Garfield NelsonHemoglobin (Bld) [Mass/Vol]13.3 g/jOIctbce48.0-16.0The [facility] HospitalComment on above:Performed By: #### VITAD #### [facility] [address] [place] [address] Dr. Garfield Quiroz #0.02 10e3/ulNormal0.00-0.03The [facility] HospitalComment on above:Performed By: #### VITAD #### [facility] [address] [place] [address] Dr. Garfield Quiroz %0.3 %Normal0.0-0.5The [facility] HospitalComment on above: Performed By: #### VITAD #### [facility] [address] [place] [address] Dr. Garfield Huynh #1.9 103/ulNormal1.2-3.8The [facility] HospitalComment on above:Performed By: #### VITAD #### [facility] [address] [place] [address] Dr. Garfield Reddyhocytes/100 WBC (Bld)30.0 %Nlkpvf64.5-60.0The [facility] HospitalComment on above:Performed By: #### VITAD #### [facility] [address] [place] [address] Dr. Garfield PraterUAL DIFF REQNONormalThe [facility] HospitalComment on above: Performed By: #### VITAD #### [facility] [address] [place] [address] Dr. Garfield Jean (RBC) [Entitic mass]28.5 iaDybhze91.7-34.0The [facility] HospitalComment on above:Performed By: #### VITAD #### [facility] [address] [place] [address] Dr. Garfield FritzHC (RBC) [Mass/Vol]31.4 g/aULkpfaz97.9-35.2The [facility] HospitalComment on above:Performed By: #### VITAD #### [facility] [address] [place] [address] Dr. Garfield FritzV (RBC) [Entitic vol]90.8 gIOkuujc79.0-99.0The [facility] HospitalComment on above:Performed By: #### VITAD #### [facility] [address] [place] [address] Dr. Garfield Baker #0.9 103/ulCritically high0.3-0.8The [facility] Comment on above:Performed By: #### VITAD #### [facility] [address] [place] [address] Dr. Garfield Bajwaocytes/100 WBC (Bld)13.4 %Critically high1.7-12.0The [facility] HospitalComment on above:Performed By: #### VITAD #### [facility] [address] [place] [address] Dr. Garfield Roman #3.4 103/ulNormal1.4-6.5The [facility] HospitalComment on above:Performed By: #### VITAD #### [facility] [address] [place] [address] Dr. Garfield Acevesutrophils/100 WBC (Bld)52.9 %Edkjae94.0-75.0The [facility] HospitalComment on above:Performed By: #### VITAD #### [facility] [address] [place] [address] Dr. Garfield Paezlet mean volume (Bld) [Entitic vol]12.2 fLNormal9.5-13.5The [facility] HospitalComment on above:Performed By: #### VITAD #### [facility] [address] [place] [address] Dr. Garfield NelsonPLT258 103/egDyzyoo971-996YzpACMC Healthcare System on above: Performed By: #### VITAD #### [facility] [address] [place] [address] Dr. Garfield NelsonRBC4.66 106/ulNormal4.20-5.40The [facility] on above:Performed By: #### VITAD #### [facility] [address] [place] [address] Dr. Garfield NelsonWBC6.3 103/ulNormal4.0-11.0The [facility] on above: Performed By: #### VITAD #### [facility] [address] [place] [address] Dr. Garfield NelsonLIPID PROFILEon [id number]-HDL RATIO NORMSBlanchard Valley Health System Bluffton HospitalCommymichigan medical center sault on above:Result Comment: 3.3 - 4.4 LOW RISK 4.4 - 7.1 AVERAGE RISK 7.1 - 11.0 MODERATE RISK >11.0 HIGH RISKPerformed By: #### MG, PHOS, CMP #### [facility] [address] [place] [address] Dr. Garfield NelsonCholesterol [Mass/Vol]204 mg/dLCritically high<=200The [facility] on above:Performed By: #### MG, PHOS, CMP #### [facility] [address] [place] [address] Dr. Garfield NelsonCholesterol in HDL [Mass/Vol]75 mg/dLCritically jssb81-59Ssh [facility] on above:Performed By: #### MG, PHOS, CMP #### [facility] [address] [place] [address] Dr. Garfield NelsonCholesterol in LDL [Mass/Vol]121.0 mg/dLEast [facility] on above:Performed By: #### MG, PHOS, CMP #### [facility] [address] [place] [address] Dr. Garfield Aguilaresteranupam.total/Cholesterol in HDL [Mass ratio]2.7 {ratio} NormalThe [facility] HospitalComment on above:Performed By: #### MG, PHOS, CMP #### [facility] [address] [place] [address] Dr. Garfield Romero NORMAL> or = 60 mg/dl - LOW CARDIOVASCULAR RISK <40 mg/dl - HIGH CARDIOVASCULAR RISKUC Medical CenterComment on above:Performed By: #### MG, PHOS, CMP #### [facility] [address] [place] [address] Dr. Garfield Shields CALC NORMALSEE BELOWNoSuburban Community Hospital & Brentwood HospitalComment on above:Result Comment: <100 mg/dl OPTIMAL 100 - 129 mg/dl NEAR OR ABOVE OPTIMAL 130 - 159 mg/dl BORDERLINE HIGH 160 - 189 mg/dl HIGH >190 mg/dl VERY HIGH Performed By: #### MG, PHOS, CMP #### [facility] [address] [place] [address] Dr. Garfield NelsonTriglyceride [Mass/Vol]40 mg/dLNormal<=150The [facility] Comment on above:Performed By: #### MG, PHOS, CMP #### [facility] [address] [place] [address] Dr. Garfield Trevizo CALC8.0 mg/dLNoSuburban Community Hospital & Brentwood HospitalComment on above: Performed By: #### MG, PHOS, CMP #### [facility] [address] [place] [address] Dr. Garfield NelsonPROF 14(COMP METB)on [id number] [Mass/Vol]3.8 g/dLNormal 3.4-5.0The [facility] HospitalComment on above:Performed By: #### MG, PHOS, CMP #### [facility] [address] [place] [address] Dr. Garfield NelsonAlbumin/Globulin [Mass ratio]0.9 {ratio}NormalThe [facility] HospitalComment on above:Performed By: #### MG, PHOS, CMP #### [facility] [address] [place] [address] Dr. Yilan ChangALP [Catalytic activity/Vol]65 U/TIfoqzq01-804Wgy [facility] HospitalComment on above:Performed By: #### MG, PHOS, CMP #### [facility] [address] [place] [address] Dr. Garfield TorresT [Catalytic activity/Vol]19 U/CXxewta34-59Oiv [facility] HospitalComment on above:Performed By: #### MG, PHOS, CMP #### [facility] [address] [place] [address] Dr. Garfield Valdezon gap [Moles/Vol]10.6 mmol/LNormalCincinnati [facility] Comment on above:Performed By: #### MG, PHOS, CMP #### [facility] [address] [place] [address] Dr. Garfield NelsonAST [Catalytic activity/Vol]18 U/RAdjqry67-19Egm [facility] HospitalComment on above:Performed By: #### MG, PHOS, CMP #### [facility] [address] [place] [address] Dr. Garfield NelsonBilirubin [Mass/Vol]0.5 mg/dLNormal0.2-1.0[facility] Comment on above:Performed By: #### MG, PHOS, CMP #### [facility] [address] [place] [address] Dr. Garfield NelsonCalcium [Mass/Vol]8.9 mg/dLNormal8.5-10.1[facility] Comment on above:Performed By: #### MG, PHOS, CMP #### [facility] [address] [place] [address] Dr. Garfield NelsonChloride [Moles/Vol]106 mmol/GRcbsds36-775Dho [facility] Comment on above:Performed By: #### MG, PHOS, CMP #### [facility] [address] [place] [address] Dr. Garfield NelsonCO2 [Moles/Vol]28.6 mmol/PQhnxme28.0-32.0The [facility] Comment on above:Performed By: #### MG, PHOS, CMP #### [facility] [address] [address] [address] Garfield NelsonCreatinine [Mass/Vol]0.88 mg/dLNormal0.55-1.02The [facility] HospitalComment on above:Performed By: #### MG, PHOS, CMP #### [facility] [address] [address] [address] Garfield GrimaldoGFR-AF KENYAN>60Normal>=60The [facility] HospitalComment on above:Performed By: #### MG, PHOS, CMP #### [facility] [address] [address] [address] Garfield GrimaldoGFR-NON AF KENYAN>60Normal>=60The [facility] HospitalComment on above:Performed By: #### MG, PHOS, CMP #### [facility] [address] [place] [address] Dr. Garfield NelsonGlobulin (S) [Mass/Vol]4.1 g/dLNormalThe [facility] HospitalComment on above:Performed By: #### MG, PHOS, CMP #### [facility] [address] [address] [address] Garfield NelsonGlucose [Mass/Vol]93 mg/cCTskkho08-009Ues [facility] Comment on above:Performed By: #### MG, PHOS, CMP #### [facility] [address] [place] [address] Dr. Garfield NelsonPotassium [Moles/Vol]4.2 mmol/LNormal3.5-5.1The [facility] Comment on above:Performed By: #### MG, PHOS, CMP #### [facility] [address] [address] [address] Garfield NelsonProtein [Mass/Vol]7.9 g/dLNormal6.4-8.2The [facility] Comment on above:Performed By: #### MG, PHOS, CMP #### [facility] [address] [address] [address] Garfield NelsonSodium [Moles/Vol]141 mmol/VTliqrr245-907Wkd [facility] Comment on above:Performed By: #### MGDAVIDS, CMP #### [facility] [address] [address] [address] Garfield Guerra nitrogen [Mass/Vol]22.0 mg/dLCritically high7.0-18.0The [facility] HospitalComment on above:Performed By: #### MGDAVIDS, CMP #### [facility] [address] [place] [address] Dr. Garfield Guerra nitrogen/Creatinine [Mass ratio]25.0 mg/mgNoSuburban Community Hospital & Brentwood HospitalComment on above:Performed By: #### DAVID REEDS, CMP #### [facility] [address] [place] [address] Dr. Garfield Lagunas 69-32-9582NMT8.939 uIU/mLNormal0.358-3.740The [facility] HospitalComment on above:Performed By: #### RAKESH REED, CMP #### [facility] [address] [place] [address] Dr. Garfield NelsonVITAMIN D 25 OHon [id number] D 25-OH34.5 ng/mLNormalCincinnati Children'S Hospital Medical CenterComment on above:Performed By: #### VITAD #### [facility] [address] [place] [address] Dr. Garfield Suggs RANGES[place] BELOWUC Medical CenterComment on above: Result Comment: <20 ng/mL Vit D deficient 20 - <30 ng/mL Vit D insufficient 30 - 100 ng/mL Vit D sufficient >100 ng/mL Potential ToxicityPerformed By: #### VITAD #### [facility] [address] [place] [address] Dr. Garfield NelsonC3 and C4 COMPLEMENTon 01-31-9852Psuoseynty C3, Knlon565 mg/dL Aenmao56-018FcdCincinnati Children'S Hospital Medical CenterComment on above:Performed By: #### CSUITE #### [facility] [address] [place] [address] Dr. Garfield NelsonComplement C4, Serum19 mg/qCMgkflu02-53Gdj [facility] Comment on above:Performed By: #### CSUITE #### [facility] [address] [address] [address] Garfield NelsonMG MAMM SCREEN 3D PATRICA CADon [id number] MAMM SCREEN 3D PATRICA CAD Patient: SIERRA ASHLEY Exam Date: 11/14/2021 : 1965 Gender:F Ordering : DR JUDITH MARTINEZ . Admission #: [id number] Family : Order #: [id number] CLICK HERE TO VIEW EXAM RADIOLOGY REPORT [...] breast cancer at age 60. LOCATION: [facility] BREAST COMPOSITION: Extremely dense, which [...] by: Guanaco Chong MD on 11/14/2021 at 12:25NormalThCherrington Hospital COMPLEMENT TOTAL (CH50)on 80-00-9991Jqtqlnxeew, Total (CH50)>60Normal>41[facility] Medical CenterComment on above:Result Comment: Age Male Female 1 [...] of range values.Performed By: #### CH50T #### [facility] [address] [place] [address] Dr. Garfield Viramontes AUTO DIFFon [id number] #0.1 103/ulNormal0.0-0.1[facility] Medical CenterComment on above:Performed By: #### CSUITE #### [facility] [address] [place] [address] Dr. Garfield NelsonBasophils/100 WBC (Bld)0.7 %Normal0.2-2.0[facility] Comment on above:Performed By: #### CSUITE #### [facility] [address] [place] [address] Dr. Garfield Michelle #0.2 103/ulNormal0.0-0.7The [facility] HospitalComment on above: Performed By: #### CSUITE #### [facility] [address] [place] [address] Dr. Garfield Grimaldoosinophils/100 WBC (Bld)2.6 %Normal0.9-7.0[facility] Comment on above:Performed By: #### CSUITE #### [facility] [address] [place] [address] Dr. Garfield Grimaldorythrocyte distribution width (RBC) [Ratio]14.1 %Cmlytn67.0-15.0 [facility] Medical CenterComment on above:Performed By: #### CSUITE #### [facility] [address] [place] [address] Dr. Garfield NelsonHematocrit (Bld) [Volume fraction]42.2 %Xoxlti12.0-48.0The [facility] HospitalComment on above:Performed By: #### CSUITE #### [facility] [address] [place] [address] Dr. Garfield NelsonHemoglobin (Bld) [Mass/Vol]13.2 g/uXBfvqpb04.0-16.0The [facility] HospitalComment on above:Performed By: #### CSUITE #### [facility] [address] [address] [address] Garfield Quiroz #0.02 10e3/ulNormal0.00-0.03The [facility] on above:Performed By: #### CSBIJALE #### [facility] [address] [place] [address] Dr. Garfield Quiroz %0.3 %Normal0.0-0.5The [facility] HospitalCommymichigan medical center sault on above: Performed By: #### CSBIJALE #### [facility] [address] [place] [address] Dr. Garfield Huynh #2.1 103/ulNormal1.2-3.8The [facility] HospitalComment on above:Performed By: #### OSIRISE #### [facility] [address] [place] [address] Dr. Garfield Reddyhocytes/100 WBC (Bld)28.2 %Zqcudm55.5-60.0The [facility] on above:Performed By: #### OSIRISE #### [facility] [address] [place] [address] Dr. Garfield PraterUAL DIFF REQNONormalThe [facility] HospitalCommymichigan medical center sault on above: Performed By: #### OSIRISE #### [facility] [address] [place] [address] Dr. Garfield Fritz (RBC) [Entitic mass]28.3 niEvmqol10.7-34.0The [facility] on above:Performed By: #### CSBIJALE #### [facility] [address] [place] [address] Dr. Garfield Fritz (RBC) [Mass/Vol]31.3 g/hDFhputh64.9-35.2[facility] on above:Performed By: #### CSBIJALE #### [facility] [address] [place] [address] Dr. Garfield Fritz (RBC) [Entitic vol]90.6 jWQwdyax73.0-99.0The [facility] HospitalComment on above:Performed By: #### AN #### [facility] [address] [place] [address] Dr. Garfield Baker #1.0 103/ulCritically high0.3-0.8The [facility] Comment on above:Performed By: #### AN #### [facility] [address] [place] [address] Dr. Garfield Bajwaocytes/100 WBC (Bld)13.9 %Critically high1.7-12.0The [facility] HospitalComment on above:Performed By: #### AN #### [facility] [address] [place] [address] Dr. Garfield Roman #4.0 103/ulNormal1.4-6.5The [facility] HospitalComment on above:Performed By: #### AN #### [facility] [address] [place] [address] Dr. Garfield Acevesutrophils/100 WBC (Bld)54.3 %Jnbstm73.0-75.0The [facility] HospitalComment on above:Performed By: #### AN #### [facility] [address] [place] [address] Dr. Garfield Paezlet mean volume (Bld) [Entitic vol]12.3 fLNormal9.5-13.5The [facility] HospitalComment on above:Performed By: #### AN #### [facility] [address] [place] [address] Dr. Garfield NelsonPLT256 103/vqChyfto044-576Kdr [facility] HospitalComment on above: Performed By: #### AN #### [facility] [address] [place] [address] Dr. Garfield NelsonRBC4.66 106/ulNormal4.20-5.40The [facility] HospitalComment on above:Performed By: #### AN #### [facility] [address] [place] [address] Dr. Garfield NelsonWBC7.4 103/ulNormal4.0-11.0The [facility] Systemment on above: Performed By: #### CSUITE #### [facility] [address] [place] [address] Dr. Garfield NelsonMAGNESIUMon 31-70-8373Vvaxvdlte [Mass/Vol]2.0 mg/dLNormal1.8-2.4 [facility] on above:Performed By: #### MG, PHOS, CMP #### [facility] [address] [place] [address] Dr. Garfield NelsonPHOSPHORUSon 22-29-4857Myeighhsy [Mass/Vol]3.4 mg/dLNormal2.6-4.7 [facility] on above:Performed By: #### MG, PHOS, CMP #### [facility] [address] [place] [address] Dr. Garfield NelsonPROF 14(COMP METB)on 81-20-5238Ziejlnh [Mass/Vol]3.9 g/dLNormal 3.4-5.0[facility] on above:Performed By: #### MG, PHOS, CMP #### [facility] [address] [place] [address] Dr. Garfield NelsonAlbumin/Globulin [Mass ratio]1.0 {ratio}NormalThe [facility] on above:Performed By: #### MG, PHOS, CMP #### [facility] [address] [place] [address] Dr. Garfield Larson [Catalytic activity/Vol]68 U/BWogjff83-006Rod [facility] on above:Performed By: #### MG, PHOS, CMP #### [facility] [address] [place] [address] Dr. Garfield Arrington [Catalytic activity/Vol]16 U/ROmxwkv02-90Xam [facility] on above:Performed By: #### MG, PHOS, CMP #### [facility] [address] [place] [address] Dr. Garfield Hardy gap [Moles/Vol]9.7 mmol/LNormalThe [facility] HospitalComment on above:Performed By: #### MG, PHOS, CMP #### [facility] [address] [place] [address] Dr. Garfield NelsonAST [Catalytic activity/Vol]17 U/OAfywjb86-28Aqz [facility] HospitalComment on above:Performed By: #### MG, PHOS, CMP #### [facility] [address] [place] [address] Dr. Garfield NelsonBilirubin [Mass/Vol]0.4 mg/dLNormal0.2-1.0The [facility] Comment on above:Performed By: #### MG, PHOS, CMP #### [facility] [address] [place] [address] Dr. Garfield NelsonCalcium [Mass/Vol]9.0 mg/dLNormal8.5-10.1The [facility] Comment on above:Performed By: #### MG, PHOS, CMP #### [facility] [address] [place] [address] Dr. Garfield NelsonChloride [Moles/Vol]103 mmol/NQtnvxb76-484Bhr [facility] Comment on above:Performed By: #### MG, PHOS, CMP #### [facility] [address] [place] [address] Dr. Garfield NelsonCO2 [Moles/Vol]30.2 mmol/VQogwqr37.0-32.0[facility] Comment on above:Performed By: #### MG, PHOS, CMP #### [facility] [address] [place] [address] Dr. Garfield NelsonCreatinine [Mass/Vol]0.92 mg/dLNormal0.55-1.02The [facility] HospitalComment on above:Performed By: #### MG, PHOS, CMP #### [facility] [address] [place] [address] Dr. Garfield GrimaldoGFR-AF KENYAN>60Normal>=60The [facility] HospitalComment on above:Performed By: #### MG, PHOS, CMP #### [facility] [address] [address] [address] Garfield GrimaldoGFR-NON AF KENYAN>60Normal>=60The [facility] HospitalComment on above:Performed By: #### MG, PHOS, CMP #### [facility] [address] [address] [address] Garfield NelsonGlobulin (S) [Mass/Vol]3.8 g/dLNormMiddletown HospitalComment on above:Performed By: #### MG, PHOS, CMP #### [facility] [address] [address] [address] Garfield NelsonGlucose [Mass/Vol]101 mg/xUPhztdj10-754Ctm [facility] Comment on above:Performed By: #### MG, PHOS, CMP #### [facility] [address] [address] [address] Garfield NelsonPotassium [Moles/Vol]3.9 mmol/LNormal3.5-5.1The [facility] Comment on above:Performed By: #### MG, PHOS, CMP #### [facility] [address] [address] [address] Garfield NelsonProtein [Mass/Vol]7.7 g/dLNormal6.4-8.2The [facility] Comment on above:Performed By: #### MG, PHOS, CMP #### [facility] [address] [address] [address] Garfield NelsonSodium [Moles/Vol]139 mmol/EUddctr020-828Hks [facility] Comment on above:Performed By: #### MG, PHOS, CMP #### [facility] [address] [address] [address] Garfield NelsonUrea nitrogen [Mass/Vol]16.0 mg/dLNormal7.0-18.0The [facility] HospitalComment on above:Performed By: #### MG, PHOS, CMP #### [facility] [address] [address] [address] Garfield eNlsonUrea nitrogen/Creatinine [Mass ratio]17.4 mg/mgNormalThe [facility] HospitalComment on above:Performed By: #### MG, PHOS, CMP #### [facility] [address] [address] [address] Garfield Davila RATE WESTERGRENon 73-22-3554VYZ RATE58 mm/hrCritically high <=30The [facility] on above:Performed By: #### CSUITE #### [facility] [address] [address] [address] Garfield Garcia RANDOM W/MICROSCOPICon 26-71-3784ZGNLNHSVFKZE SEENNormalNONE SEENACMC Healthcare System on above:Performed By: #### VITAD #### [facility] [address] [place] [address] Dr. Garfield Ayala Ql (U)NegativeNormalNEGATIVECincinnati Children'S Hospital [facility] Center Comment on above:Performed By: #### VITAD #### [facility] [address] [address] [address] Garfield Morales SEENNormalNONE SEENACMC Healthcare System on above:Performed By: #### VITAD #### [facility] [address] [address] [address] Garfield Rodriguez (U)CLEARNormalCLEARCincinnati Children'S Hospital Medical CenterCommymichigan medical center sault on above: Performed By: #### VITAD #### [facility] [address] [place] [address] Dr[address] Garfield Blancas (U)LT. YELLOWNormalYELLOWACMC Healthcare System on above:Performed By: #### VITAD #### [facility] [address] [address] [address] Garfield Cleveland LM Nom (Urine sed)NONE SEENNormalNONE SEENACMC Healthcare System on above:Performed By: #### VITAD #### [facility] [address] [address] [address] Merrill ChangEpithelial cells LM Ql (Urine sed)NONE SEENNormalNONE SEEN /RARE The [facility] HospitalCommymichigan medical center sault on above:Performed By: #### VITAD #### [facility] [address] [address] [address] Garfield NelsonGlucose Ql (U)NegativeNormalNEGATIVECincinnati Children'S Hospital Medical CenterComment on above:Performed By: #### VITAD #### [facility] [address] [place] [address] Dr. Garfield NelsonHemoglobin Ql (U)NegativeNormalNEGATIVEKettering Health Miamisburg on above:Performed By: #### VITAD #### [facility] [address] [place] [address] Dr. Garfield NelsonKetones Ql (U)NegativeNormalNEGATIVECincinnati Children'S Hospital Medical CenterComment on above:Performed By: #### VITAD #### [facility] [address] [place] [address] Dr. Garfield NelsonLEUKOCYTESNegativeNormalNEGATIVECincinnati Children'S Hospital Medical CenterComment on above:Performed By: #### VITAD #### [facility] [address] [place] [address] Dr. Garfield NelsonMUCOUSNONE SEENNormalNONE SEENCincinnati Children'S Hospital Medical CenterComment on above:Performed By: #### VITAD #### [facility] [address] [place] [address] Dr. Garfield NelsonNitrite Ql (U)NegativeNormalNEGATIVECincinnati Children'S Hospital Medical CenterComment on above:Performed By: #### VITAD #### [facility] [address] [place] [address] Dr. Garfield NelsonpH (U)6.0 [pH]Normal5-9The [facility] Systemment on above: Performed By: #### VITAD #### [facility] [address] [place] [address] Dr. Garfield NelsonBzdchUTK3-5Rydweu3-9Rqw [facility]vue HospitalComment on above:Performed By: #### VITAD #### [facility] [address] [place] [address] Dr. Garfield NelsonSPEC GRAVITY1.975Eashrb4.005-<=1.025The [facility] HospitalComment on above:Performed By: #### VITAD #### [facility] [address] [address] [address] Garfield Garcia PROTEINNegativeNormalNEGATIVE/ TRACEThe [facility] Comment on above:Performed By: #### VITAD #### [facility] [address] [address] [address] Garfield NelsonUrobilinogen Qn (U)0.2 {Marquise'U}/dLNormal0.2 - 1.0The [facility] HospitalComment on above:Performed By: #### VITAD #### [facility] [address] [address] [address] Garfield NelsonWBCNONKamla SEENNormalNONE SEENThe [facility] HospitalComment on above: Performed By: #### VITAD #### [facility] [address] [place] [address] Dr. Garfield NelsonC3 and C4 COMPLEMENTon 70-46-1872Ojsvdzjxdn C3, Nyqnq593 mg/dL Mddkwb31-441Fuv [facility] HospitalComment on above:Performed By: #### CSUITE #### [facility] [address] [place] [address] Dr. Garfield NelsonComplement C4, Serum18 mg/rLMuhcne51-52Oro [facility] Comment on above:Performed By: #### CSUITE #### [facility] [address] [place] [address] Dr. Garfield DyePLEMENT TOTAL (CH50)on 10-51-1906Ghmgltypuq, Total (CH50)>60 Normal>41The [facility] HospitalComment on above:Result Comment: Age Male Female [...] values.Performed By: #### MG, PHOS, CMP #### [facility] [address] [place] [address] Dr. Garfield Viramontes AUTO DIFFon 01-89-6056JQFU #0.1 103/ulNormal0.0-0.1The [facility] HospitalComment on above:Performed By: #### VITAD #### [facility] [address] [place] [address] Dr. Garfield NelsonBasophils/100 WBC (Bld)0.6 %Normal0.2-2.0The [facility] Comment on above:Performed By: #### VITAD #### [facility] [address] [place] [address] Dr. Garfield Michelle #0.1 103/ulNormal0.0-0.7The [facility] HospitalComment on above: Performed By: #### VITAD #### [facility] [address] [place] [address] Dr. Garfield Grimaldoosinophils/100 WBC (Bld)1.1 %Normal0.9-7.0The [facility] Comment on above:Performed By: #### VITAD #### [facility] [address] [place] [address] Dr. Garfield Grimaldorythrocyte distribution width (RBC) [Ratio]14.5 %Wbdsly22.0-15.0 The [facility] HospitalComment on above:Performed By: #### VITAD #### [facility] [address] [place] [address] Dr. Garfield NelsonHematocrit (Bld) [Volume fraction]40.6 %Jojbnn06.0-48.0The [facility] HospitalComment on above:Performed By: #### VITAD #### [facility] [address] [place] [address] Dr. Garfield NelsonHemoglobin (Bld) [Mass/Vol]12.8 g/vRYglgvi25.0-16.0The [facility] HospitalComment on above:Performed By: #### VITAD #### [facility] [address] [place] [address] Dr. Garfield Quiroz #0.02 10e3/ulNormal0.00-0.03The [facility] HospitalComment on above:Performed By: #### VITAD #### [facility] [address] [place] [address] Dr. Garfield Quiroz %0.2 %Normal0.0-0.5The [facility] HospitalComment on above: Performed By: #### VITAD #### [facility] [address] [place] [address] Dr. Garfield Huynh #1.7 103/ulNormal1.2-3.8The [facility] HospitalComment on above:Performed By: #### VITAD #### [facility] [address] [place] [address] Dr. Garfield Reddyhocytes/100 WBC (Bld)20.0 %Critically low20.5-60.0Cincinnati Children'S Hospital Medical CenterComment on above:Performed By: #### VITAD #### [facility] [address] [place] [address] Dr. Garfield Leon DIFF REQNONormalThe [facility] HospitalComment on above: Performed By: #### VITAD #### [facility] [address] [place] [address] Dr. Garfield Jean (RBC) [Entitic mass]28.4 qtJrndhl26.7-34.0The [facility] HospitalComment on above:Performed By: #### VITAD #### [facility] [address] [place] [address] Dr. Garfield Fritz (RBC) [Mass/Vol]31.5 g/iWWvrnvj59.9-35.2The [facility] HospitalComment on above:Performed By: #### VITAD #### [facility] [address] [place] [address] Dr. Garfield Holcomb (RBC) [Entitic vol]90.0 aMDdbzxh44.0-99.0The [facility] HospitalComment on above:Performed By: #### VITAD #### [facility] [address] [place] [address] Dr. Garfield Baker #0.9 103/ulCritically high0.3-0.8The [facility] Comment on above:Performed By: #### VITAD #### [facility] [address] [place] [address] Dr. Garfield Bajwaocytes/100 WBC (Bld)10.9 %Normal1.7-12.0The [facility] Comment on above:Performed By: #### VITAD #### [facility] [address] [place] [address] Dr. Garfield Roman #5.7 103/ulNormal1.4-6.5The [facility] HospitalComment on above:Performed By: #### VITAD #### [facility] [address] [place] [address] Dr. Garfield Acevesutrophils/100 WBC (Bld)67.2 %Wegazn76.0-75.0The [facility] HospitalComment on above:Performed By: #### VITAD #### [facility] [address] [place] [address] Dr. Garfield Paezlet mean volume (Bld) [Entitic vol]12.1 fLNormal9.5-13.5The [facility] HospitalComment on above:Performed By: #### VITAD #### [facility] [address] [place] [address] Dr. Garfield AyonT249 103/vhHjwrgx035-518Mki [facility] HospitalComment on above: Performed By: #### VITAD #### [facility] [address] [place] [address] Dr. Garfield NelsonRBC4.51 106/ulNormal4.20-5.40The [facility] HospitalComment on above:Performed By: #### VITAD #### [facility] [address] [place] [address] Dr. Garfield NelsonWBC8.5 103/ulNormal4.0-11.0The [facility] HospitalComment on above: Performed By: #### VITAD #### [facility] [address] [place] [address] Dr. Garfield Kang 79-48-0779Muatqpimo [Mass/Vol]2.0 mg/dLNormal1.8-2.4 The [facility] HospitalComment on above:Performed By: #### CSUITE #### [facility] [address] [place] [address] Dr. Garfield NelsonPHOSPHORUSon 38-92-1393Ttjracnpb [Mass/Vol]3.6 mg/dLNormal2.6-4.7 The [facility] HospitalComment on above:Performed By: #### CSUITE #### [facility] [address] [place] [address] Dr. Garfield NelsonPROF 14(COMP METB)on 92-96-7519Jbmnobj [Mass/Vol]3.8 g/dLNormal 3.4-5.0The [facility] HospitalComment on above:Performed By: #### CSUITE #### [facility] [address] [place] [address] Dr. Garfield NelsonAlbumin/Globulin [Mass ratio]0.9 {ratio}NormalThe [facility] HospitalComment on above:Performed By: #### CSUITE #### [facility] [address] [place] [address] Dr. Garfield Larson [Catalytic activity/Vol]73 U/KHvxglm10-000Ury [facility] HospitalComment on above:Performed By: #### CSUITE #### [facility] [address] [place] [address] Dr. Garfield Arrington [Catalytic activity/Vol]24 U/XTqlyzh30-27Mjh [facility] HospitalComment on above:Performed By: #### CSUITE #### [facility] [address] [place] [address] Dr. Garfield Hardy gap [Moles/Vol]12.0 mmol/LNormalThe [facility] on above:Performed By: #### CSUITE #### [facility] [address] [place] [address] Dr. Garfield Melendez [Catalytic activity/Vol]22 U/DErwwpp03-58Xsh [facility] HospitalComment on above:Performed By: #### CSUITE #### [facility] [address] [address] [address] Garfield NelsonBilirubin [Mass/Vol]0.4 mg/dLNormal0.2-1.0[facility] Comment on above:Performed By: #### CSUITE #### [facility] [address] [address] [address] Garfield NelsonCalcium [Mass/Vol]8.9 mg/dLNormal8.5-10.1The [facility] Comment on above:Performed By: #### CSUITE #### [facility] [address] [place] [address] Dr. Garfield NelsonChloride [Moles/Vol]102 mmol/FEpcvbz24-598SowCincinnati Children'S Hospital Medical Center Comment on above:Performed By: #### CSUITE #### [facility] [address] [place] [address] Dr. Garfield NelsonCO2 [Moles/Vol]27.2 mmol/HIkpgzd30.0-32.0The [facility] Comment on above:Performed By: #### CSUITE #### [facility] [address] [place] [address] Dr. Garfield NelsonCreatinine [Mass/Vol]0.86 mg/dLNormal0.55-1.02The [facility] HospitalComment on above:Performed By: #### CSUITE #### [facility] [address] [place] [address] Dr. Garfield GrimaldoGFR-AF KENYAN>60Normal>=60The [facility] HospitalComment on above:Performed By: #### CSUITE #### [facility] [address] [place] [address] Dr. Garfield GrimaldoGFR-NON AF KENYAN>60Normal>=60The [facility] on above:Performed By: #### CSUITE #### [facility] [address] [place] [address] Dr. Garfield NelsonGlobulin (S) [Mass/Vol]4.4 g/dLNormalThe Jose HospitalComment on above:Performed By: #### CSUITE #### [facility] [address] [address] [address] Garfield NelsonGlucose [Mass/Vol]108 mg/dLCritically gvaq00-983Idm [facility] HospitalComment on above:Performed By: #### CSUITE #### [facility] [address] [place] [address] Dr. Garfield NelsonPotassium [Moles/Vol]4.2 mmol/LNormal3.5-5.1The [facility] Comment on above:Performed By: #### CSUITE #### [facility] [address] [place] [address] Dr. Garfield NelsonProtein [Mass/Vol]8.2 g/dLNormal6.4-8.2The [facility] Comment on above:Performed By: #### CSUITE #### [facility] [address] [place] [address] Dr. Garfield NelsonSodium [Moles/Vol]137 mmol/OTislzv367-499Exa [facility] Comment on above:Performed By: #### CSUITE #### [facility] [address] [place] [address] Dr. Garfield NelsonUrea nitrogen [Mass/Vol]15.0 mg/dLNormal7.0-18.0The [facility] HospitalComment on above:Performed By: #### CSUITE #### [facility] [address] [place] [address] Dr. Garfield Guerra nitrogen/Creatinine [Mass ratio]17.4 mg/mgNoSuburban Community Hospital & Brentwood HospitalComment on above:Performed By: #### CSUITE #### [facility] [address] [place] [address] Dr. Garfield Davila RATE WESTERGRENon 32-04-2443MXF RATE11 mm/hrNormal<=30The [facility] HospitalComment on above:Performed By: #### CSUITE #### [facility] [address] [place] [address] Dr. Garfield Garcia RANDOM W/MICROSCOPICon 10-92-1859TCPZMXRZRVYX SEENNormalNONE SEENCincinnati Children'S Hospital Medical CenterComment on above:Performed By: #### UAMIC #### [facility] [address] [address] [address] Garfield NelsonBilirubin Ql (U)NegativeNormalNEGATIVECincinnati Children'S Hospital Medical Center Comment on above:Performed By: #### UAMIC #### [facility] [address] [address] [address] Garfield NelsonCASTNONE SEENNormalNONE SEENCincinnati Children'S Hospital Medical CenterComment on above:Performed By: #### UAMIC #### [facility] [address] [address] [address] Garfield NelsonClarity (U)CLEARNormalCLEARCincinnati Children'S Hospital Medical CenterComment on above: Performed By: #### UAMIC #### [facility] [address] [address] [address] Garfield Ricelor (U)LT. YELLOWNormalYOhioHealth Grant Medical CenterComment on above:Performed By: #### UAMIC #### [facility] [address] [address] [address] Garfield NelsonCrystals LM Nom (Urine sed)NONE SEENNormalNONE SEENCincinnati Children'S Hospital Medical CenterComment on above:Performed By: #### UAMIC #### [facility] [address] [address] [address] Merrill ChangEpithelial cells LM Ql (Urine sed)FEWAbnormalNONE SEEN /RAREThe [facility] HospitalComment on above:Performed By: #### UAMIC #### [facility] [address] [address] [address] Garfield NelsonGlucose Ql (U)NegativeNormalNEGATIVECincinnati Children'S Hospital Medical CenterComment on above:Performed By: #### UAMIC #### [facility] [address] [address] [address] Garfield NelsonHemoglobin Ql (U)NegativeNormalNEGGlenbeigh Hospital Comment on above:Performed By: #### UAMIC #### [facility] [address] [address] [address] Garfield Levin Ql (U)NegativeNormalNEGATIVEThe [facility] HospitalComment on above:Performed By: #### UAMIC #### [facility] [address] [address] [address] Garfield NelsonLEUKOCYTESNegativeNormalNEGATIVEThe [facility] HospitalComment on above:Performed By: #### UAMIC #### [facility] [address] [address] [address] Garfield TaylorCOUSNONKamla SEENNormalNONE SEENThe [facility] HospitalComment on above:Performed By: #### UAMIC #### [facility] [address] [place] [address] Dr. Garfield Fitzpatricktrgisele Ql (U)NegativeNormalNEGATIVEThe [facility] HospitalComment on above:Performed By: #### UAMIC #### [facility] [address] [place] [address] Dr. Garfield NelsonpH (U)6.0 [pH]Normal5-9The [facility] HospitalComment on above: Performed By: #### UAMIC #### [facility] [address] [place] [address] Dr. Garfield NelsonRBCNHELGA SEENAbnormal0-2The [facility] HospitalComment on above: Performed By: #### UAMIC #### [facility] [address] [address] [address] Garfield NelsonSPEC GRAVITY1.681Srhotx0.005-<=1.025The [facility] HospitalComment on above:Performed By: #### UAMIC #### [facility] [address] [address] [address] Garfield Garcia PROTEINNegativeNormalNEGATIVE/ TRACEThe [facility] on above:Performed By: #### UAMIC #### [facility] [address] [place] [address] Dr. Garfield Ordazbilinogen Qn (U)0.2 {Marquise'U}/dLNormal0.2 - 1.0The Jose HospitalComment on above:Performed By: #### UAMIC #### [facility] [address] [address] [address] Garfield NelsonWBCNONKamla SEENNormalNONE SEENThe [facility] HospitalComment on above: Performed By: #### UAMIC #### [facility] [address] [address] [address] Garfield Nelson Vital Signs Date TimeVital SignValuePerforming HoprfsfdtZeflpoog49-70-2968 11:16-0500Body mass index (BMI) [Ratio]19.53 kg/m2Ste[address] Work Phone: [phone] [place], [place] [address]Rqdefochyu47-71-3629 11:16-0500Body .44 kgAmy Brianna PA Work Phone: [phone] [place], [place] [address]Tipkharxji74-08-4128 11:16-0500Diastolic blood nqetqoui36 mm[Hg][address] Work Phone: [phone] [place] [address]-11-2025 11:16-0500Systolic blood rfmohwrl724 mm[Hg]Stephanie Reed PA Work Phone: [phone] [place], [place] [address]Tgtfdizgzg67-32-8782 13:54-0500Body .48 cmBenjamin Ball DO Work Phone: [phone]11-10-2025 13:54-0500 Body mass index (BMI) [Ratio]19.4 kg/b0Plkmabyc Ball DO Work Phone: [phone] [place], [place] [address]11-10-2025 13:54-0500 Body ignihe66.19 kgBenjamin Ball DO Work Phone: [phone] [place], [place] [address]11-10-2025 13:54-0500 Diastolic blood cxucrwkv19 mm[Hg]Rich Ball DO Work Phone: [phone] [place], [place] [address]11-10-2025 13:54-0500 Heart rate91 /minBenjamin Ball DO Work Phone: [phone]11-10-2025 13:54-0500 Respiratory rate12 /minBenjamin Ball DO Work Phone: [facility]11-10-2025 13:54-0500 Systolic blood iowtfgdi750 mm[Hg]Rich Ball DO Work Phone: [facility]11-04-2024 11:13-0500 Body kvpbmy972.5 cmAsabino Hazeley PA Work Phone: [facility] CenterVawwoyxfmo25-69-2998 11:13-0500Body mass index (BMI) [Ratio]19.02 kg/m2Amy [place] PA Work Phone: [facility] CenterQvakfasczd26-50-1943 11:13-0500Body izcosw79.17 kgAmy Brianna PA Work Phone: [facility] CenterAjtrqdsymp84-91-8357 11:13-0500Diastolic blood fckseacf53 mm[Hg]Stephanie Hazeley PA Work Phone: [facility] CenterJobzwqzjyd88-55-5710 11:13-0500Systolic blood zuoegnks079 mm[Hg]Stephanie Hazeley PA Work Phone: [facility] CenterCabnlovoji92-25-5586 11:00-0400Body .48 cmBenjamin Ball Other [place] [facility] Other 10-19-2023 11:00-0400Body mass index (BMI) [Ratio] 19.02 kg/d7Ffhmxbok Ball Other [place] [facility] Other 10-19-2023 11:00-0400Body amxnrc23.17 kgBenjamin Ball Other [facility] Other 10-19-2023 11:00-0400Diastolic blood oeucgimv10 mm[Hg] Rich Ball Other [facility] Other 10-19-2023 11:00-0400Respiratory rate12 /minBenjamin Ball Other [facility] [place] Other 821373-24-0576 11:00-0400Systolic blood ifkdhwvi347 mm[Hg] Rich Segura Other [facility] Other Encounters Encounter DateEncounter TypeCare ProviderFacilityStart: 01-10-2025 End: 88-22-1078Pvxduw flowsPorsha STREET Work Phone: no Joes OBGYNStart: 01-10-2025 End: 74-69-4480Klqafj flowsheetStephanie STREET Work Phone: [facility] [place] OBGYNStart: 01-10-2025 End: 23-49-0941Rldkpvk preventive medicine new patient [address] Work Phone: [facility] [place] OBGYNComment on above:Well woman exam with routine gynecological exam; Breast cancer screening by mammogram; Postmenopausal stateStart: 01-10-2025 End: 01-92-5166Mzomsyg encounter procedureStephanie STREET Work Phone: [facility] Work Phone: Start: 01-10-2025 End: 97-89-5175ehjvwnreapMWF RAMEYNot AvailableStart: 01-09-2025 End: 74-88-4975gdccazcvugMmhcmpee Ball DO Work Phone: -[facility] ClinicStart: 01-09-2025 End: 64-44-7437Hpxhbzp encounter procedureBenjalotus Segura DO-[facility] Work Phone: Start: 01-09-2025 End: 04-18-5474Texpgsq encounter statusBenolu Segura [facility] Centertart: 12-19-2024 End: 33-34-6295Rgahvzpcl Result EncounterStephanie STREET Work Phone: noms External Department UnsolicitedStart: 12-19-2024 End: 33-99-4278Plmfhwvex Result EncounterStephanie STREET Work Phone: n[facility] External Department UnsolicitedStart: 01-04-2024 End: 32-45-4375Stuwvb flowsheetStephanie STREET Work Phone: noMS BCP OBStart: 01-04-2024 End: 11-46-4988Yapgcv flowsheetStephanie STREET Work Phone: noms BCP OBStart: 01-04-2024 End: 77-24-4407Dffpjcess Result EncounterAmy Brianna STREET Work Phone: [facility] External Department UnsolicitedStart: 01-04-2024 End: 45-25-5705Trczkop encounter procedureStephanie STREET Work Phone: noms HealthcareStart: 01-04-2024 End: 89-06-6473Ocyhisoe preventive med est patient 40-[address] Work Phone: [facility] OBComment on above:Postmenopausal state; Well woman exam with routine gynecological examStart: 12-18-2023 End: 29-75-1946Gnzkbzmpj Result EncounterAmy Brianna STREET Work Phone: noms External Department UnsolicitedStart: 12-18-2023 End: 51-30-1170Ntfriccuo Result EncounterAmy Brianna STREET Work Phone: noms External Department UnsolicitedStart: 12-17-2023 Patient encounter statusBejudahlotus Segura DO Work Phone: [facility]: 12-18-2022 End: 98-50-9049lglwfjwhsaXwbkhasl Ball Other [place] [facility] Other Start: 21-65-8058Lqyrigfem for general adult medical examination without abnormal findingsBenolu BallIRAMG [facility] ClinicStart: 10-76-9948Yqstbmth preventive med est patient 40-64yrsBenolu BallIRAMG [facility] ClinicStart: 12-05-2022 End: 39-94-5323bkpgfhdxebWoqentgj Ball Other [facility] Other Start: 29-26-7299Exdvcwj evaluation of patient and reportRich Segura Medical ClinicStart: 05-12-2022 End: 14-28-3526pjnrmjzgpfDC NIKI KIKIROWFacility:W9Jbtkr: 04-11-2022 End: 39-82-8860gbckoopvnjBhobcguc Ball Other [facility] Other Start: 21-90-7600Hbefux outpatient visit 15 minutes Rich Segura Medical ClinicStart: 03-11-2022 End: 12-79-7081dyncvtgfriCvyhcsil Ball Other [facility] Other Start: 90-27-3055Redatq outpatient visit 15 minutes Rich Segura Medical ClinicStart: 02-11-2022 End: 90-94-6028tjpdiqqqhcNS DOCTOR MISCFacility:P9Msooa: 01-02-2022 End: 65-91-9680mjpnjrtxlfQytg L ObermeyerFacility:[facility]htart: 01-02-2022 End: 10-57-5339uiprlvyiynLR Rich Segura Work Phone: [facility] [place] [facility] Work Phone: Start: 01-02-2022 End: 55-93-9364Grpadpz encounter procedureDO Rich Segura Work Phone: [facility] [place] [facility] Start: 40-04-8533knvyksuxgpJlzpqvkj:9090Start: 08-26-5271Wrnndjfyn for general adult medical examination without abnormal findingsDR RICH SEGURACoshocton Regional Medical Centertart: 12-17-2021 End: 00-12-0755doxqxuudtvBQ RICH SEGURAFacility:U0Maoph: 12-17-2021 End: 82-59-5993Sjjbohcgj for general adult medical examination without abnormal findingsDR RICH SEGURAFacility:P4Ikzak: 12-16-2021 End: 37-82-8985skldtfkvsyDV JUDITH MARTINEZ .Facility:M8Rgahg: 12-16-2021 Gynecological examination normalBenolu Segura Other [place] Other Start: 12-43-5514Ikdti health examinationBenolu Segura Other [facility] Other Start: 11-14-2021 End: 52-47-2742fvodupxiqqUI JUDITH MARTINEZ .Facility:A4Ddcky: 11-12-2021 End: 47-69-3590nsnhwrlrtuRF DOCTOR MISCFacility:I2Qtblc: 08-07-2021 End: 03-73-5690dhmbiermckEB DOCTOR MISCFacility:H1 Procedures DateProcedureProcedure DetailPerforming ClinicianStart: 71-54-7387QZ TOMOSYNTHESIS SCREENING [address] Work Phone: Start: 13-16-2848SwmmokwdfdqRrt Ramey PA Work Phone: Start: 11-33-7241QBE,APTIMA HPV,AGE GDLNStephanie STREET Work Phone: Start: 19-62-4204Fzphxwfpiuv observation [Identifier] in Cervix by Cyto stainStephanie STREET Work Phone: Start: 18-85-7779EH TOMOSYNTHESIS SCREENING [address] Work Phone: Start: 95-30-6536ZssttwcfqpdJek Ramey PA Work Phone: Start: 11-18-2796Lgtubnn examination of patient Rich Segura Other Depression screeningBenolu Segura Other Screening for malignant neoplasm of breastGhanshyamnolu Segura Other End: 56-73-6974Izhkwnmbe for malignant neoplasm of breastGhanshyamnolu Segura Other Screening for malignant neoplasm of breastGhanshyamnolu Segura Other Screening for malignant neoplasm of colonBenolu Segura Other End: 21-44-4748Ldnztwjve for osteoporosisBenjamin Jose Other Plan of Treatment DateCare ActivityDetailAuthorStart: 18-95-0783Hhngbgwci for malignant neoplasm of cervixNOMS HealthcareStart: 01-17-2026 End: 31-24-7226Uhjmksk encounter /18/2026 11:00 AM EST Procedure Visit NOMPurvi FARRELL [address] [place], [id number] Stephanie Reed PA [address] [place] [address] SULEMA Garcia OBGYNStart: 12-19-2025 Screening for malignant neoplasm of breastMammogramNOMS HealthcareStart: 24-38-9836OPPSJ-19 Vaccine ( season)COVID-19 Vaccine ( season)NOM HealthcareStart: 01-10-2025 End: 80-89-9487RWB Skeletal system Views for bone densityDEXA bone density Imaging Routine Postmenopausal state Expected: 01/10/2025 (Approximate), Expires:01/10/2026[facility] Work Phone: comment on above:Expected: 01/10/2025 (Approximate), Expires: 01/10/2026Start: 01-10-2025 End: 29-53-1338Jpqgdro encounter procedureNOMS BCP OBComment on above:Arrived Start: 45-57-7409Cdixvzfpi for malignant neoplasm of breastMammogramNOMS HealthcareStart: 86-92-7825MVLRP-19 Vaccine ( season)COVID-19 Vaccine ( season)[facility] HealthcareStart: 86-40-1069Jfambtyty vaccination Influenza Vaccine (#1)[facility] HealthcareStart: 01-04-2024 End: 02-29-5419Ixrdkwd encounter uroddaftb06/04/2024 11:00 AM EST Office Visit [facility] [address] [place] [phone] Stephanie Reed PA [address] [place] [address] [facility] OBComment on above:ArrivedStart: 11-01-2023 Influenza vaccinationInfluenza Vaccine (#1)[facility] HealthcareStart: 12-01-1995 Screening for malignant neoplasm of cervixVAL[facility] HealthcareStart: 1986 Screening for malignant neoplasm of cervixPap SmearVALLEY VIEW MEDICAL CENTER HealthcareStart: 53-47-3632Ndvjqgocg B Vaccines (1 of 3 - 19+ 3-dose series)Hepatitis B Vaccines (1 of 3 - 19+ 3-dose series)[facility] CenterStart: 87-96-1531KYgT/Tdap/Td Vaccines (1 - Tdap)DTaP/Tdap/Td Vaccines (1 - Tdap)[facility] CenterStart: 59-80-5515VNN Vaccines (1 of 1 - Standard series)MMR Vaccines (1 of 1 - Standard series)[facility] CenterStart: 37-62-7654Sfizrlenw for malignant neoplasm of colonVAL[facility]IEW [facility] HealthcareTHIN PREP TIS PAP AND HR HPV DNATHIN PREP TIS PAP AND HR HPV DNA Pathology and Cytology Routine Well woman exam with routine gynecological exam Ordered: 01/04/2024[facility] Work Phone: comment on above:Ordered: 01/04/2024THIN PREP TIS PAP AND HR HPV DNATHIN PREP TIS PAP AND HR HPV DNA Pathology and Cytology Routine Well woman exam with routine gynecological exam Ordered: 01/10/2025[facility] HealthcareComment on above:Ordered: 01/10/2025[facility] Immunizations Immunization DateImmunizationNotesCare MhhrahraJisjhdul00-52-0734zyabeabka virus vaccine, unspecified formulationStephanie STRE[address] Work Phone: [facility] CenterSsuycpulgz67-68-6749bodpwyneg, injectable, quadrivalent, preservative freeBenjamin Ball Other [facility]10-14-2022influenza virus vaccine, split virus (incl. purified surface antigen)Rich Segura Other [place] Other [id number] virus vaccine, unspecified formulationBenjamin Ball DO Work Phone: [facility]10-13-2021COVID-19 mRNA, Comirnaty (Pfizer)DO Rich Segura Work Phone: [facility]10-06-2021influenza virus vaccine, split virus (incl. purified surface antigen)Rich Segura Other [place] Other [id number] virus vaccine, unspecified formulationBenjamin Ball DO Work Phone: [facility]03-05-2021COVID-19 mRNA, Comirnaty (Pfizer)DO Rich Segura Work Phone: [facility]02-12-2021COVID-19 mRNA, Comirnaty (Pfizer)DO Rich Segura Work Phone: [phone]10-08-2020influenza virus vaccine, split virus (incl. purified surface antigen)Rich Segura Other [place] Other [id number] virus vaccine, unspecified formulationBenjamin Ball DO Work Phone: [facility]11-06-2019 pneumococcal polysaccharide vaccine, 23 valentBenjamin Ball Other [facility]10-04-2019influenza virus vaccine, split virus (incl. purified surface antigen)Rich Segura Other [place] Other [id number]f virus vaccine, unspecified formulationBenjamin Ball DO Work Phone: [facility]10-16-2018influenza virus vaccine, split virus (incl. purified surface antigen)Rich Jose Other [place] Other 10302312-66-3156ztjyrwflb virus vaccine, unspecified formulationBegeorgeolu Segura DO Work Phone: [facility]10-11-2017tetanus and diphtheria toxoids, adsorbed, preservative free, for adult use (5 Lf of tetanus toxoid and 2 Lf of diphtheria toxoid)Rich Segura Other [facility]10-12-2016tetanus and diphtheria toxoids, adsorbed, preservative free, for adult use (5 Lf of tetanus toxoid and 2 Lf of diphtheria toxoid)Rich Segura Other [facility]09-15-2016 pneumococcal conjugate vaccine, 13 valentBebeto Segura Other [facility]10-20-2015tetanus and diphtheria toxoids, adsorbed, preservative free, for adult use (5 Lf of tetanus toxoid and 2 Lf of diphtheria toxoid)Rich Segura Other [facility]10-15-2013tetanus and diphtheria toxoids, adsorbed, preservative free, for adult use (5 Lf of tetanus toxoid and 2 Lf of diphtheria toxoid)Rich Segura Other [facility] Payers DatePayer CategoryPayerPolicy [id number] Health InsuranceGENERIC COMMERCIAL [id number] 2.0.1.219473.3.57[id number] 2.160.1.949294.3.57[id number] 2.0.1.741646.3.57[id number] 2.0.1.393288.3.57[id number] 2.0.1.460901.3.57[id number] 2.0.1.394588.3.57[id number] 2.0.1.505572.3.57[id number] 2.0.1.259250.3.57[id number] 2.0.1.252475.3.579.[id number] 2..1.597799.19 [id number] 2..1.472133.3.579.2.531 Social History DateTypeDetailFacilityStart: 01-28-2021 End: 10-82-6472Fedxust smoking status NHISNever smoked tobacco (finding) [facility]: 83-78-6153O[facility] Other Tobacco smoking status NHISTobacco smoking consumption unknownVAL[facility] HealthcareStart: 72-04-7120Fyi assigned at birthNot on fileVAL[facility] HealthcareStart: 43-07-9175AjnPmrodyMEYZ HealthcareSexFemale (finding)[facility] Clinical Notes 03-11-2022 to 01-10-2025 Note Date & LaizOsnpUyggeeup99-99-8233 History of Present illness Narrative* JAD Granados - 01/10/2025 11:00 AM EST Reason for Appointment: Patient ID: Sierra Ashley is a 59 y.o. female who [...] nursing note reviewed. Exam conducted with a printed products assembler present. Vitals: Estimated body mass index is 19.53 kg/m as calculated from the following: Height as of 01/03/24: 5' 2 . Weight as of this [...] them. Patient can also view results via [employer]. I reinforced importance of condom use for [...] behalf of: JAD Granados documented in this encounterMissouri Delta Medical CenterKubodfvuxe44-69-2499 History of Present illness Narrative* JAD Granados [...] nursing note reviewed. Exam conducted with a printed products assembler present. Vitals: There is no height or [...] behalf of: JAD Granados documented in this encounterMissouri Delta Medical CenterQnzjqihrvw32-51-0298 Evaluation note* Encounter Date Diagnosis Assessment Notes [...] patient on monthly SBE and yearly mammograms. [facility] Other 02-10-2023 Evaluation note* Encounter Date Diagnosis Assessment Notes Treatment Notes Treatment Clinical Notes Apr, Acute non-recurrent maxillary si nusitis (ICD-10 - J01.00) Instructed to use Robitussin or Mucinex for cough, saline or Flonase NS for congestion, Tylenol forpain and fever. Apr,Immunosuppressed status (ICD-10 - D84.9)Monitor for persistent high temperature, spread of symptoms to lungs, SOB or CP. [facility] Other 01-10-2023 Evaluation note* Encounter Date Diagnosis Assessment Notes Treatment Notes Treatment Clinical Notes Mar, Acute bronchitis due to other sp ecified organisms (ICD-10 - J20.8) Instructed to use Robitussin or Mucinex for cough, saline or Flonase NS for congestion, Tylenol forpain and fever. 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 Immunosuppressed due to disease and treatment, empiric treatment of any infection necessary [facility] Other Evaluation noteNo assessment information available [facility] Work Phone: Evaluation noteNo InformationNort [facility] Other Evaluation note* Diagnosis Postmenopausal state Asymptomatic postmenopausal status (age-related) (natural) Well woman exam with routine gynecological exam Routine gynecological examination documented in this encounter [facility] HealthcareEvaluation note* Diagnosis Onset Date Resolution Status Admit Date GERD (gastroesophageal reflux disease) acuteNov2024 1:49pmOsteoporosisacuteNovember 2024 1:49pm Raynauds phenomenonacuteNov2024 1:49pmScreening mammogram for breast canceracuteJanuary 09, 2025 1:49pmSystemic sclerosisacuteNov2024 1:49pmWellness examinationacuteNov2024 1:49pm [facility] Work Phone: Evaluation note* Diagnosis Well woman exam with routine gynecological exam Routine gynecological examination Breast cancer screening by mammogram Postmenopausal state Asymptomatic postmenopausal status (age-related) (natural) documented in this encounter NOMS HealthcareHistory general Narrative - Reported* Type Description Date Medical History Scleroderma Medical HistoryBreast cancer screening by mammogramMedical HistoryProgressive systemic sclerosisMedical HistoryRaynaud''s phenomenon without gangreneMedical HistoryAge-related osteoporosis without current pathological fractureSurgical HistoryHYSTERECTOMYHospitalization Historysee surgical history [facility] Other Reason for referral (narrative)No reason for referral information availableRegional Medical Center Work Phone: Chief Complaint and Reason for Visit Chief Complaint j84.10 i27.0 r06.02 r06.00 m35.9 z79.899 Chief Complaint Admit Date Wellness January 09, 2025 1:49pm Reason for Visit Admit Date GERD (gastroesophageal reflux disease) N ov2024 1:49pm Osteoporosis January 09, 2025 1:49pm Raynauds phenomenon January 09, 2025 1:49pm Screening mammogram for breast cancer No vember 2024 1:49pm Systemic sclerosis January 09, 2025 1:49pm Wellness examination January 09, 2025 1:49pm Family History Relationship Condition Age at Onset Recorded Date/T sam Not Specified Vascular disorder Unknown Diabetes mellitusUnknownHeart diseaseUnknownfatherIrritable bowel syndrome Unknown Relationship Condition Age at Onset Recorded Date/T sam mother Vascular disorder Unknown Diabetes mellitusUnknownHeart diseaseUnknownfatherIrritable bowel syndrome Unknown Advance Directives Advance Directive Response Recorded Date/ Time Advance Directives No December 11:15am Advance Directive Response Recorded Date/ Time Advance Directives No December 10:15am Summary Purpose Additional Source Comments Care Teams (unrecognized sec tion and content) Team Status: Inactive Member Role Status Dates Rich Segura DO Primary Care Provider Active Patricia Ornelas NP-CAttending ProviderActive Team Status: Active Member Role Status Dates Rich Segura DO Primary Care Provider Active Team MemberRelationshipSpecialtyStart DateEnd Date Rich Segura MD [address] [place] [phone] PCP - GeneralKing[facility] Centernal Rbtybhuw39/30/23Team MemberRelationshipSpecialtyStart Date End Date Rich Segura MD [address] [place] [address] PCP - GeneralKingman [facility] Medical Centernal Mmoqjvpt56/30/23Team MemberRelationshipSpecialtyStart Date End Date Rich Segura MD [address] [place] [address] PCP - GeneralKingman [facility] Medical Centernal Lawsjghk37/30/23Team MemberRelationshipSpecialtyStart Date End Date Rich Segura DO PCP - GeneralInternal Xffkctct11/30/23 Team Status: Active Member Role/Relationship Status Dates Rich Segura DO Primary Care Provider Active Team Status: Inactive Member Role/Relationship Status Dates Rich Segura DO Primary Care Provider Active Start: January 09, 2025 End: January 09enolu Segura DOAttending ProviderActiveStart: January 09, 2025 End: January 09, 2025Team MemberRelationshipSpecialtyStart DateEnd Date Rich Segura DO PCP - GeneralInternal Tlloiwwr23/30/23Team MemberRelationshipSpecialtyStart Date End Date Rich Segura DO PCP - GeneralInternal Emkncnay34/30/23 Goals (unrecognized section and content) Goals may be documented in a n alternate sectionNo InformationNo InformationNo InformationNo InformationGoals may be documented in an alternate section INFORMATION SOURCE (unrecogn ized section and content) DATE CREATED AUTHOR 04/05/2022 [facility] DATE CREATED AUTHOR AUTHOR'S ORGANIZ ATION 04/05/2022 [facility] DATE CREATED AUTHOR AUTHOR'S ORGANIZ ATION 05/19/2022 [facility] DATE CREATED AUTHOR AUTHOR'S ORGANIZ ATION 01/11/2025 [facility] EPIC REASON FOR VISIT (unrecogniz [...] BE BASED ON THE PRIMARY CLINICAL RECORDS. [facility] [place] [employer] provides no warranty or guarantee of the accuracy or completeness of information in this document.
== END 2025-01-23 09:24 | disposition home or self-care (01) ==
LOC: RAD 09:23
PROVIDERS: Visit Provider Internal Medicine Rheumatology
DX: M81.0 Age-related osteoporosis without current pathological fracture (principal); M85.88 Other specified disorders of bone density and structure, other site
CPT/HCPCS: 77080

== ENCOUNTER 2025-02-01 11:21 | Outpatient (OUT) | payer OTHER, SELFPAY ==
--- OUTSIDE RECORDS SUMMARY | 2025-02-01 11:24 | XMS_ITS | Clinical Summary ---
Author Organization [facility] Address [address] [place] [address] Phone Care Team Providers Care Supervisor Central Supply Name Role Phone Unavailable Primary Care Provider Unavailabl e Social History Tobacco UseTypesPacks/DayYears UsedDateSmoking Tobacco: Never Assessed CommentsUnknownSex and Gender InformationValueDate RecordedSex Assigned at Not on fileLegal UowJobpps95/25/2022 9:07 PM ESTGender IdentityNot on fileSexual OrientationNot on file Last Filed Vital Signs Vital SignReadingTime TakenCommentsBlood Oretoemd506/9104 8:51 AM EDT Pulse--Lpmhluybyaw70.7 ??C (98.1 ??F)06/13/2023 8:51 AM EDTRespiratory Rate71 06/13/2023 8:51 AM EDTOxygen Saturation--Inhaled Oxygen Concentration--Weight-- Height--Body Mass Index-- Plan of Treatment Health MaintenanceDue DateLast DoneCommentsCT Mjeakwrmvjbm16/01/1966Colonoscopy 1965Colorectal Cancer Qjmtevzcx08/01/1966FIT-DNA (Cologuard)1965FIT 1965HIV Yiekryzfk05/01/1966Lipid Panel1965 5071Mffyrwbcgneuh23/01/1966 Yearly Adult Hpjdqoml57/01/1966MMR Vaccines (1 of 1 - Standard series)1966 Hepatitis C Pcxlwahal57/01/1984Hepatitis B Vaccines (1 of 3 - 19+ 3-dose series) 1984Cervical Cancer Npdpccxjj21/01/1987HPV/Rzgjxg4911/30/1986Pap Smear 1986DTaP/Tdap/Td Vaccines (1 - Tdap)12/01/19878722Ulxjqqmsn55/01/2006 Pneumococcal Vaccine (1 of 1 - PCV)12/01/2015Zoster [...]
--- OUTSIDE RECORDS SUMMARY | 2025-02-01 11:24 | XMS_ITS | Encounter Summary ---
Author Organization [facility] Address [address] [place] [address] Care Team Providers Care Rate Manager Name Role Phone Rich Garcia DO Primary Care Provider [phone] Encounter Details DateTypeDepartmentCare Team (Latest Contact Info)Vivhyhhwmeu79/25/2025bstract SULEMA FARRELL [address] [place] [address] [place] [address] Stephanie Reed, PA [address] [place], [facility] Social History Tobacco UseTypesPacks/DayYears UsedDateSmoking Tobacco: Never Assessed CommentsNoSex and Gender InformationValueDate RecordedSex Assigned at BirthNot on fileLegal MruWbhwsd67/15/2023 7:21 PM EDTGender IdentityNot on fileSexual OrientationNot on filedocumented as of this encounter Plan of Treatment DateTypeDepartmentCare Team (Latest Contact Info)Dxlueqspkdp56/18/2026 11:00 AM ESTProcedure Visit SULEMA FARRELL [address] [place] [address] Stephanie Reed, PA [address] [place] [address] documented as of this encounter Visit Diagnoses Not on filedocumented in this encounter Care Teams Team MemberRelationshipSpecialtyStart DateEnd Date Rich Garcia DO [address] [place] [address] PCP - GeneralInternal Grqfwgjf32/30/23documented as of this encounter
--- OUTSIDE RECORDS SUMMARY | 2025-02-01 11:24 | XMS_ITS | Clinical Summary ---
Author Organization [facility] Address [address] [facility] [place] [address] Care Team Providers Care Wallpaper Inspector And Shipper Name Role Phone Rich Garcia DO Primary Care Provider [phone] Allergies Active AllergyReactionsCriticalityNoted DateCommentsPenicillamineRashLow 01/04/2024 Medications MedicationSigDispense [...] 60 MG/ML solution prefilled syringe EVERY 6 JKZQVL5112/21/2023ctive Encounters DateTypeDepartmentCare AuzeUngyxpzgdst15/25/2025bstract [facility]ARRELL [address] [place] [address] Stephanie Keith PA 01/23/2025bstract [facility]RE[facility] [address] [place] [address] Stephanie Keith PA 01/10/2025 11:00 AM ESTOffice Visit [place] [address] Stephanie Keith PA Well woman exam with routine gynecological exam; Breast cancer screening by mammogram; Postmenopausal state01/10/2025linisync Result Encounter [facility] External Department Unsolicited Stephanie Keith PA 01/10/2025amboo flowsheet [facility]ARRE[facility] [address] [place] [address] Stephanie Keith PA 5Clinisync Result Encounter NOMS External Department Unsolicited Stephanie Keith PA from Last 3 Months Social History Tobacco UseTypesPacks/DayYears UsedDateSmoking Tobacco: Never Assessed CommentsNoSex and Gender InformationValueDate RecordedSex Assigned at BirthNot on fileLegal HcqRooyhu58/15/2023 7:21 PM EDTGender IdentityNot on fileSexual OrientationNot on file Last Filed Vital Signs Vital SignReadingTime TakenCommentsBlood Bybekwps330/80103/12/2024 11:16 AM EST Pulse--Temperature--Respiratory Rate--Oxygen Saturation--Inhaled Oxygen Concentration--Xxsaoh90.4 kg (106 lb 12.8 oz)01/10/2025 11:16 AM ZUUVgdzvs652.5 cm (5' 2 )01/04/2024 11:13 AM ESTBody Mass Index19.5301/04/2024 11:13 AM EST Plan of Treatment DateTypeDepartmentCare Team (Latest Contact Info)Bypgjulnfrb63/18/2026 11:00 AM ESTProcedure Visit NOMPurvi FARRELL [address] [facility] [place] [address] Stephanie Keith PA [address] [place] [address] Health MaintenanceDue DateLast DoneCommentsCT Badaapygvvyn96/01/1966Colonoscopy 1965Colorectal Cancer Qsshnezct06/01/1966FIT-DNA1965FIT1965 FOBT1965 8062Oqbbvpksxlqdk89/01/1966COVID-19 Vaccine ( season) , 02/02/2024, 01/06/2023, Additional history existsMammogram , 12/18/2023, 12/05/2022ervical Cancer Abzatcfno32/04/2029 HPV/Xezmgk5301/03/2029Pap SmearInfluenza VaccineCompleted 11/17/2024, 12/28/2023, 12/05/2022, Additional history existsPneumococcal Vaccine: Pediatrics (0 to 5 Years) and At-Risk Patients (6 to 64 Years)Aged Out No longer eligible based on patient's age to complete this topic Procedures Procedure NamePriorityDate/TimeAssociated DiagnosisCommentsIGP,APTIMA HPV,AGE AFTLHgsluah45/11/2025 11:08 AM EST MM TOMOSYNTHESIS SCREENING BI12/19/2024 2:19 PM EDT PAP XGDTPSqvudvt46/04/2024 12:00 AM ESTfrom Last 3 Months or [...] at: 01 =G ?[facility] ?? [address] [place] ??[phone] ?? Betsy Harris MD, IGP, APTIMA HPV, RFX 16/18,45Note.TBHComment: ?? TESTS ? RESULT ??FLAG ??UNITS ?REF RANGE ??LAB DIAGNOSIS: ?02 ?? UNSATISFACTORY FOR EVALUATION. Recommendation: ? 02 ?? Suggest follow up as clinically appropriate. Specimen adequacy: ?02 ?? Specimen processed and examined but unsatisfactory for evaluation of ?? epithelial abnormality because of insufficient cellularity. Performed by: ? 02 ?? Kishan Alonzo, Blood Donor Unit Assistant ([facility]) QC reviewed by: ? 02 ?? Bev Flowers, Blood Donor Unit Assistant ([facility]) . ? 02 Note: ? Note ?02 [...] pap test was interpreted ?? using the Yuppics(R) Genius(TM) Cervical Algorithm whole ?? slide imaging system. HPV Genotype Reflex ?? Note ?02 ?? Criteria not met, HPV Genotype not performed. ?FLAG LEGEND: ?L-Low Normal,H-High Normal,LL-Alert Low,HH-Alert High <-Panic Low,>-Panic High,A-Abnormal,AA-Critical Abnormal Performed at: 02 WB ?[facility] ?? [address] [place], [place] ??[phone] ?? Betsy Harris MD, HPV APTIMANegativeNegativeTBHComment: This nucleic acid amplification test detects fourteen high- risk HPV types (16,18,31,33,35,39,45,51,52,56,58,59,66,68) without differentiation. Performed at: ??=G - [facility] [address] ??[id number] Livestock Broker: Betsy Harris MD, Phone: ??[phone] Performed at: ?? - [facility] ??[id number] Livestock Broker: Betsy Harris MD, Phone: ??[phone] Specimen (Source)Anatomical Location / LateralityCollection Method / Volume Collection TimeReceived Time01/10/2025 11:08 AM EST01/10/2025 8:01 PM EST Narrative [facility] - 01/17/2025 12:14 PM EST SPATULA-ALONE TOTAL HX VAGINA Authorizing ProviderResult TypeResult StatusAmy [facility] BLOOD ORDERABLES Final ResultPerforming OrganizationAddressCity/State/ZIP CodePhone Number [facility] * MM TOMOSYNTHESIS SCREENING BI (12/19/2024 2:19 PM EDT)Anatomical Region LateralityModalityOtherSpecimen (Source)Anatomical Location / Laterality Collection Method / VolumeCollection TimeReceived Time12/19/2024 2:19 PM EDT Narrative 12/19/2024 2:21 PM EDT [facility] ?[address] ? [place] [address] ? Mammography Report ? Signed Patient: ARISTEOSIERRA J ?MR#: [id number] : 1965 ?Acct:[id number] Age/Sex: 59 / F ?ADM Date: 12/19/24 Loc: MAMMO Attending Dr: Stephanie Keith Ordering Physician: Stephanie Keith ?Results: Date of Service: 12/19/24 ?Follow Up: Procedure(s): MM tomosynthesis screening BI Accession Number(s): [id number] cc: Stephanie Keith; Physician,Non-Staff Jennifer Patient Name: SIERRA ALBERTS MR#: [id number] : 1965 Exam Date: 12/19/2024 Ordering Doctor: [...] cancer at age ??60. LOCATION: ? [facility] BREAST COMPOSITION: ? The breasts are [...] By: ?12/19/24 1421 DD/ 1419 TD/TT: ? Radiotelephone Technical Operator: Procedure Note Radiology, Radiologist, MD - 01/10/2025 [place] [address] Mammography Report Signed Patient: SIERRA ALBERTS JMR#: [id number] : 1965Acct:[id number] Age/Sex: 59 / FADM Date: 12/19/24 Loc: MAMMO Attending Dr: Stephanie Keith Ordering Physician: Stephanie KeithResults: Date of Service: 12/19/24Follow Up: Procedure(s): MM tomosynthesis screening BI Accession Number(s): [id number] cc: Stephanie Keith; Physician,Non-Staff M.D. Patient Name: SIERRA ALBERTS MR#: [id number] : 1965 Exam Date: 12/19/2024 Ordering Doctor: [...] breast cancer at age 60. LOCATION: [facility] BREAST COMPOSITION: The breasts are extremely [...] M.D. Signed By:12/19/24 1421 DD/ 1419 TD/TT: Radiotelephone Technical Operator: Authorizing ProviderResult TypeResult StatusAmy [place] PACLINISYNC IMAGINGFinal Result * Pap Smear (01/04/2024 12:00 AM EST)Specimen (Source)Anatomical Location / LateralityCollection Method / VolumeCollection TimeReceived TimeSwabCervical swab / Unknown Narrative Authorizing ProviderResult TypeResult StatusAmy [place] PALAB CYTOLOGY ORDERABLES Final ResultPerforming OrganizationAddressCity/State/ZIP CodePhone Number EXTERNAL LAB from Last 3 Months or Most Recently Relevant to Health Maintenance Insurance Care Teams Team MemberRelationshipSpecialtyStart DateEnd Date Rich Garcia DO [address] [facility] [place] [address] PCP - GeneralInternal Smweysyg43/30/23
--- OUTSIDE RECORDS SUMMARY | 2025-02-01 11:24 | XMS_ITS | Encounter Summary ---
Author Organization [facility] Address [address] [facility] [place] [address] Care Team Providers Care Biodiesel Technology Manager Name Role Phone Rich Garcia DO Primary Care Provider [phone] Encounter Details DateTypeDepartmentCare Team (Latest Contact Info)Occdyafvaki52/24/2025bstract SULEMA FARRELL [address] [place] [address] [place] [address] Stephanie Reed, PA [address] [facility] [address] [place], [facility] Social History Tobacco UseTypesPacks/DayYears UsedDateSmoking Tobacco: Never Assessed CommentsNoSex and Gender InformationValueDate RecordedSex Assigned at BirthNot on fileLegal SgyHimzuc49/15/2023 7:21 PM EDTGender IdentityNot on fileSexual OrientationNot on filedocumented as of this encounter Plan of Treatment DateTypeDepartmentCare Team (Latest Contact Info)Ehfvsrvmcai97/18/2026 11:00 AM ESTProcedure Visit SULEMA FARRELL [address] [place] [address] Stephanie Reed, PA [address] [facility] [place] [address] documented as of this encounter Visit Diagnoses Not on filedocumented in this encounter Care Teams Team MemberRelationshipSpecialtyStart DateEnd Date Rich Garcia DO [address] [place] [address] PCP - GeneralInternal Lsgoabqi55/30/23documented as of this encounter
--- OUTSIDE RECORDS SUMMARY | 2025-02-01 11:27 | XMS_ITS | CCD ---
Author Organization [facility] Care Team Providers Care Disposal Worker Name Role Phone DO Rich Segura Primary Care Provider [phone] THERESE Ornelas Attending Provider Patricia Ornelas Attending [...] Care Provider Rich Segura DO Attending Provider STEPHANIE REED Attending Unavailable Allergies Allergy ClassificationReported Allergen(s)Allergy TypeDate of OnsetReaction(s) Facility (2 sources)PenicillinsDrug allergy (disorder)89-09-8845Pcyicpm Reaction, Comment:[facility] Repository (5 sources)Penicillin VDrug Vruzwul43-19-3975Ijpcbrx, Unknown ReactionTrihealth (1 source)PenicillinsDrug allergy (disorder)28-27-1463XggAk[facility] (1 source)Allergies ReconciledPropensity to adverse reactionsUnkSac-[facility] M[facility] Other (2 sources)Substance with penicillin structure and antibacterial mechanism of action (substance)Drug allergyComment:[facility] Mash[facility] Other (1 source)patient allergy list reviewed by nurse or physiciaPropensity to adverse sfqkowelp67-11-9676Veeoznu:[facility] Other (8 sources)penicillAMINEDrug Qbochkh98-01-8394FqyzKUHQ Healthcare Medications Current Medications MedicationDrug Class(es)DatesSig (Normalized)Sig (Original)calcium carbonate 600 mg oral capsule (4 sources)take 1 tablet by mouth twice daily at mealtimeCalcium Carbonate 600 MG 1 tablet with food Orally Twice a day Activecalcium carbonate 1500 mg / cholecalciferol 200 unt oral tablet (11 sources)Vitamin DStart: 98-66-6327wcue 1 tablet by mouth twice dailyCalcium Carbonate-Vitamin D3 600 mg-5 mcg (200 unit) Tablet Active 1 TAB PO Twice daily January 28, 2021 12:00am Complies with drug therapyCalcium Carb- Cholecalciferol (Calcium 600 + D) 600-5 MG-MCG tablet Take by mouth. Active1 ml denosumab 60 mg/ml prefilled syringe (8 sources)RANK Ligand InhibitorStart: 84-75-0548blnbgrmfj (Prolia) 60 MG/ML solution prefilled syringe EVERY 6 MONTHS 12/21/2023 Activefolic acid 1 mg oral tablet (15 sources)Start: 54-56-0116cwhh 1 tablet by mouth once dailyFolic Acid 1 mg tablet Active 1 MG PO Daily January 28, 2021 12:00am Complies with drug therapymethotrexate 2.5 mg oral tablet (15 sources)Folate Analog Metabolic InhibitorStart: 44-36-5141rwmz 1 tablet by mouth once dailyMethotrexate Sodium 2.5 mg tablet Active 2.5 MG PO Daily January 28, 2021 12:00am Complies with drug fbzzwaz36 hr NIFEdipine 30 mg extended release oral tablet (15 sources)Dihydropyridine Calcium Channel BlockerStart: 66-64-9676rnml 1 tablet by mouth once dailyNifedipine 30 mg Tablet Extended Release Active 30 MG PO Daily January 28, 2021 12:00am Complieswith drug therapytake 1 tablet by mouth every twenty-four hoursProcardia XL 30 MG 1 tablet Orally Once a day Active Completed/Discontinued Medications MedicationDrug Class(es)DatesSig (Normalized)Sig (Original)azithromycin 250 mg oral tablet (6 sources)Macrolide AntimicrobialStart: 12-21-2023 End: 08-89-5875Pjdvpjlfjzbe 250 mg tablet Discontinued 250 MG PO As Directed 6 5 0 March 21, 2024 3:27pm January 09, 2025 1:53pmStart: 04-11-2022 Azithromycin 250 MG as directed Orally daily for 5 days Apr, Not-Taking benzonatate 200 mg oral capsule (4 sources)Non-narcotic AntitussiveStart: 19-82-8988enzz 1 capsule by mouth every eight hoursBenzonatate 200 MG 1 capsule Orally Three times a day for 10 Mar, Not-Takingdoxycycline hyclate 100 mg oral capsule (4 sources)Tetracycline-class DrugStart: 66-37-4253iugj 1 capsule by mouth twice dailyDoxycycline Hyclate 100 MG 1 capsule Orally twice daily for 7 days Mar, Not-Taking3 ml ibandronic acid 1 mg/ml injection (6 sources)BisphosphonateStart: 01-28-2021 End: 26-41-3471kpdf 3 mg intravenously every three monthsIbandronate 3 mg/3 mL Solution Discontinued 3 MG IV EVERY 3 MONTHS January 28, 2021 12:00am December 21, 2023 12:36pmIbandronate Sodium 3 MG/3ML 3 mL Intravenous Activeomeprazole 20 mg delayed release oral capsule (4 sources)Proton Pump InhibitorOmeprazole 20 MG (Prior Auth: Rx Ref#:[id number]) Oral for 90 Not-Taking Problems Active Problems Problem ClassificationProblemDateDocumented DateEpisodic/ChronicAcute bronchitis (1 source)Acute bronchitis due to other specified organismsEpisodicEsophageal disorders (7 sources)Gastroesophageal reflux disease; Translations: [Gastro-esophageal reflux disease without esophagitis]ChronicImmunity disorders (6 sources)Immunosuppression; Translations: [Immunodeficiency, unspecified] ChronicImmunizations and screening for infectious disease (3 sources)Encounter for screening for human papillomavirus (HPV); Translations: [Vaccination given]Onset: 94-87-0459MwegjkzuZydsadegbwgpm mental health disorders (4 sources)Globus sensation; Translations: [Other somatoform disorders]Chronic Osteoporosis (8 sources)Primary osteoporosis; Translations: [Age-related osteoporosis without current pathological fracture]Onset: 10-62-5562CaxdmdwKdipu aftercare (1 source)Other nuclear physician (current) drug therapy; Translations: [OTH CARE HOME CURRENT DRUG THERAPY]Onset: 97-57-8451WedcnzzlEwofr circulatory disease (6 sources)Raynaud's disease; Translations: [Raynaud's syndrome without gangrene]ChronicOther circulatory disease (2 sources)Raynaud's syndrome without gangrene; Translations: [RAYNAUDS SYNDROME WITHOUT GANGRENE]Onset: 29-65-8357RghbaeuQkahp circulatory disease (2 sources)Raynaud's phenomenon; Translations: [Raynaud's syndrome without gangrene]60-68-8656EzfiotaLuobm gastrointestinal disorders (4 sources)Pharyngeal dysphagia; Translations: [Dysphagia, pharyngeal phase] EpisodicOther gastrointestinal disorders (4 sources)Dysphagia; Translations: [Dysphagia, unspecified]EpisodicOther lower respiratory disease (1 source)Pulmonary fibrosis, unspecified; Translations: [Pulmonary fibrosis, unspecified]Onset: 87-87-1387DuaytyzPfmem screening for suspected conditions (not mental disorders or infectious disease) (15 sources)Patient encounter status; Translations: [Encounter for screening for malignant neoplasm of colon]Onset: 811559-08-4555DeiteczmPtemx upper respiratory infections (3 sources)Acute maxillary sinusitis, unspecified; Translations: [Acute maxillary sinusitis]EpisodicResidual codes; unclassified (5 sources)Postmenopausal state; Translations: [Asymptomatic menopausal state] Resolved: 189850-07-0383RcpzwfxkGhjekwra lupus erythematosus and connective tissue disorders (16 sources)Systemic sclerosis, unspecified; Translations: [Scleroderma]Onset: 13-71-0087Dfpxcck Past or Other Problems Problem ClassificationProblemDateDocumented DateEpisodic/ChronicAbdominal pain (1 source)Pelvic and perineal pain; Translations: [Pelvic and perineal pain] Resolved: 33-09-7867MkopoazaRxulcpbqbn disorders (2 sources)Atrophic vaginitis; Translations: [Postmenopausal atrophic vaginitis] Resolved: 15-60-1646RkzkqhmLhsbv aftercare (1 source)History and physical examination, follow-up; Translations: [Encounter for follow-up examination after completed treatment for conditions other than malignant neoplasm] Resolved: 10-75-2911PranommnErbus female genital disorders (1 source)Noninflammatory disorder of the vagina; Translations: [Other specified noninflammatory disorders ofvagina] Resolved: 06-61-0430VtiltsvmNblzu nutritional; endocrine; and metabolic disorders (1 source)Underweight; Translations: [Underweight] Resolved: 30-88-1232ZfyxnwfbHtnsqjxc of female genital organs (1 source)Uterovaginal prolapse; Translations: [Uterovaginal prolapse, unspecified] Resolved: 06-54-6344CqpiffpHazlovrc codes; unclassified (1 source)Family history of malignant neoplasm of breast; Translations: [FAMILY HX MALIG NEOPLASM OF BREAST]Onset: 04-44-0084KaoercsqOzftoebh codes; unclassified (1 source)Requires influenza virus vaccination; Translations: [Need for prophylactic vaccination and inoculation, Influenza]Onset: 95-46-1251Sppfujgm Spondylosis; intervertebral disc disorders; other back problems (1 source)Low back pain; Translations: [Lumbago]Onset: 85-62-1750Xtosbjca Results Test NameValueInterpretationReference RangeFacilityMM TOMOSYNTHESIS SCREENING BI on 92-48[place] [address] Mammography Report Signed Patient: SIERRA ASHLEY MR#: [id number] : 1965 Acct:[id number] Age/Sex: 59 / F ADM Date: 12/19/24 Loc: MAMMO Attending Dr: Stephanie Reed Ordering Physician: Stephanie Reed Results: Date of Service: 12/19/24 Follow Up: Procedure(s): MM tomosynthesis screening BI Accession Number(s): [id number] cc: Stephanie Reed; Physician,Non-Staff MConstantino Patient Name: SIERRA ASHLEY MR#: [id number] : 1965 Exam Date: 12/19/2024 Ordering Doctor: [...] breast cancer at age 60. LOCATION: [facility] BREAST COMPOSITION: The breasts are [...] Signed By: 12/19/24 1421 DD/ 1419 TD/TT: Foreman/Pile Driving And Erection:TBHRadiology, RadiologistMD - 01/10/2025 [place] [address] Mammography Report Signed Patient: SIERRA ASHLEY MR#: [id number] : 1965 Acct:[id number] Age/Sex: 59 / F ADM Date: 12/19/24 Loc: MAMMO Attending Dr: Stephanie Reed Ordering Physician: Stephanie Reed Results: Date of Service: 12/19/24 Follow Up: Procedure(s): MM tomosynthesis screening BI Accession Number(s): [id number] cc: Stephanie Reed; Physician,Non-Staff M.D. Patient Name: SIERRA ASHLEY MR#: [id number] : 1965 Exam Date: 12/19/2024 Ordering Doctor: [...] breast cancer at age 60. LOCATION: [facility] BREAST COMPOSITION: The breasts are [...] Signed By: 12/19/24 1421 DD/ 1419 TD/TT: Foreman/Pile Driving And Erection: SULEMA HealthcareRadiology Study observation (narrative)[facility] TOMOSYNTHESIS SCREENING BIOrdered By: Radiologist Radiology on 29-98-7716[facility] Work Phone: IGP,APTIMA HPV,AGE GDLNon 45-46-0679UED GDLN ACOG TESTINGNote.NOMS HealthcareComment on above:TESTS RESULT FLAG UNITS REF RANGE LAB Clinician Provided Cytology Information Source.............Vagina No. of containers..01 ThinPrep Vial Age Algo ACOG Liz... FLAG LEGEND: L-Low Normal,H-High Normal,LL-Alert Low,HH-Alert High <-Panic Low,>-Panic High,A-Abnormal,AA-Critical Abnormal Performed at: 01 =G [address] [address] Betsy Harris MD, HPV APTIMANegativeNegativeNOMS HealthcareComment on above:This nucleic acid amplification test detects fourteen high- risk HPV types (16,18,31,33,35,39,45,51,52,56,58,59,66,68) without differentiation. Performed at: =[address] [id number] Dual Hose Cementer: Betsy Harris MD, Phone: [phone] Performed at: [address] [id number] Dual Hose Cementer: Betsy Harris MD, Phone: [phone] IGP, APTIMA HPV, RFX 16/18,45Note.NOMS HealthcareComment on above:TESTS RESULT FLAG UNITS REF RANGE LAB DIAGNOSIS: 02 NEGATIVE FOR INTRAEPITHELIAL LESION OR MALIGNANCY. REACTIVE CELLULAR CHANGES AND/OR REPAIR ARE PRESENT. CELLULAR CHANGES ASSOCIATED WITH ATROPHY ARE PRESENT. Specimen adequacy: 02 Satisfactory for evaluation. Endocervical component may not be distinguished in cases of atrophy. Performed by: 02 Savanah Brower, Continuous Dryout Operator (ASCP) Electronically si... Meghan Talley MD, Pathologist [...] Low,>-Panic High,A-Abnormal,AA-Critical Abnormal Performed at: [address] [place] [address] Betsy Harris MD, SPATULA-ALONE VAGINA CLINISYNCNOFreeman Heart Institute TOMOSYNTHESIS SCREENING BIon 45-60-4147M[address] [address] Mammography Report Signed Patient: SIERRA ASHLEY MR#: [id number] : 1965 Acct:[id number] Age/Sex: 58 / F ADM Date: 12/18/23 Loc: MAMMO Attending Dr: Stephanie Reed Ordering Physician: Stephanie Reed Results: Date of Service: 12/18/23 Follow Up: Procedure(s): MM tomosynthesis screening BI Accession Number(s): [id number] cc: Stephanie Reed; Physician,Non-Staff M.D. Patient Name: SIERRA ASHLEY MR#: [id number] : 1965 Exam Date: 12/18/2023 Ordering Doctor: [...] breast cancer at age 60. LOCATION: [facility] BREAST COMPOSITION: The breasts are [...] Signed By: 12/18/23 1249 DD/ 1248 TD/TT: Foreman/Pile Driving And Erection:TBHRadiology, RadiologistMD - 12/18/2023 [place] [address] Mammography Report Signed Patient: SIERRA ASHLEY MR#: [id number] : 1965 Acct:[id number] Age/Sex: 58 / F ADM Date: 12/18/23 Loc: MAMMO Attending Dr: Stephanie Reed Ordering Physician: Stephanie Reed Results: Date of Service: 12/18/23 Follow Up: Procedure(s): MM tomosynthesis screening BI Accession Number(s): [id number] cc: Stephanie Reed; Physician,Non-Staff M.D. Patient Name: SIERRA ASHLEY MR#: [id number] : 1965 Exam Date: 12/18/2023 Ordering Doctor: [...] breast cancer at age 60. LOCATION: [facility] BREAST COMPOSITION: The breasts are [...] Signed By: 12/18/23 1249 DD/ 1248 TD/TT: Foreman/Pile Driving And Erection: [facility] HospitalRadiology Study observation (narrative)[facility] TOMOSYNTHESIS SCREENING BIOrdered By: Radiologist Radiology on 41-38-6079HKHE [employer] Work Phone: c3 and C4 COMPLEMENTon 61-96-8661Xdreqacfai C3, Serum 99 mg/pXUuamtk37-432Uqp [facility] HospitalComment on above:Performed By: #### VITAD #### [facility] [address] [place] [address] Dr. Garfield Dyeplement C4, Serum14 mg/tOAewjfp34-46WfiAkron Children'S Hospital Comment on above:Performed By: #### VITAD #### [facility] [address] [place] [address] Dr. Garfield DyePLEMENT TOTAL (CH50)on 27-26-9794Ljbxqdigon, Total (CH50)>60 Normal>41The [facility] HospitalComment on above:Result Comment: Age Male [...] of range values.Performed By: #### CH50T #### [facility] [address] [place] [address] Dr. Garfield Viramontes AUTO DIFFon 30-70-5578NGCZ #0.0 103/ulNormal0.0-0.1[facility]'S HospitalCommymichigan medical center clare on above:Performed By: #### CBC #### [facility] [address] [place] [address] Dr. Garfield NelsonBasophils/100 WBC (Bld)0.4 %Normal0.2-2.0[facility] Comment on above:Performed By: #### CBC #### [facility] [address] [place] [address] Dr. Garfield Michelle #0.1 103/ulNormal0.0-0.7The [facility] HospitalComment on above: Performed By: #### CBC #### [facility] [address] [place] [address] Dr. Garfield Grimaldoosinophils/100 WBC (Bld)1.1 %Normal0.9-7.0The [facility] Comment on above:Performed By: #### CBC #### [facility] [address] [place] [address] Dr. Garfield Grimaldorythrocyte distribution width (RBC) [Ratio]14.9 %Cdpzbg86.0-15.0 [facility] HospitalComment on above:Performed By: #### CBC #### [facility] [address] [place] [address] Dr. Garfield NelsonHematocrit (Bld) [Volume fraction]38.3 %Ycgfol74.0-48.0The [facility] HospitalComment on above:Performed By: #### CBC #### [facility] [address] [place] [address] Dr. Garfield NelsonHemoglobin (Bld) [Mass/Vol]12.2 g/mGRffobd27.0-16.0The [facility] HospitalComment on above:Performed By: #### CBC #### [facility] [address] [place] [address] Dr. Garfield NelsonIG #0.03 10e3/ulNormal0.00-0.03The [facility] HospitalComment on above:Performed By: #### CBC #### [facility] [address] [place] [address] Dr. Garfield NelsonIG %0.3 %Normal0.0-0.5The [facility] HospitalComment on above: Performed By: #### CBC #### [facility] [address] [place] [address] Dr. Garfield KellyMPH #2.1 103/ulNormal1.2-3.8The [facility] HospitalComment on above:Performed By: #### CBC #### [facility] [address] [place] [address] Dr. Garfield Kellymphocytes/100 WBC (Bld)22.6 %Ijgogx63.5-60.0The [facility] HospitalComment on above:Performed By: #### CBC #### [facility] [address] [place] [address] Dr. Garfield Leon DIFF REQNONormalThe [facility] HospitalComment on above: Performed By: #### CBC #### [facility] [address] [place] [address] Dr. Garfield Fritz (RBC) [Entitic mass]28.5 qoVqmpkq51.7-34.0The [facility] HospitalComment on above:Performed By: #### CBC #### [facility] [address] [place] [address] Dr. Garfield rFitz (RBC) [Mass/Vol]31.9 g/bFYcrqkl63.9-35.2The [facility] HospitalComment on above:Performed By: #### CBC #### [facility] [address] [place] [address] Dr. Garfield Fritz (RBC) [Entitic vol]89.5 bJAdcjew85.0-99.0The [facility] HospitalComment on above:Performed By: #### CBC #### [facility] [address] [place] [address] Dr. Garfield Baker #1.0 103/ulCritically high0.3-0.8ThMiddletown Hospital Comment on above:Performed By: #### CBC #### [facility] [address] [place] [address] Dr. Garfield Bajwaocytes/100 WBC (Bld)10.5 %Normal1.7-12.0[facility] Comment on above:Performed By: #### CBC #### [facility] [address] [place] [address] Dr. Garfield Roman #6.1 103/ulNormal1.4-6.5The [facility] HospitalComment on above:Performed By: #### CBC #### [facility] [address] [place] [address] Dr. Garfield Acevesutrophils/100 WBC (Bld)65.1 %Rqojnq92.0-75.0The [facility] HospitalComment on above:Performed By: #### CBC #### [facility] [address] [place] [address] Dr. Garfield NelsonPlatelet mean volume (Bld) [Entitic vol]12.1 fLNormal9.5-13.5The [facility] HospitalComment on above:Performed By: #### CBC #### [facility] [address] [place] [address] Dr. Garfield NelsonPLT276 103/gkYlwaqy833-610Cik [facility] HospitalComment on above: Performed By: #### CBC #### [facility] [address] [place] [address] Dr. Garfield NelsonRBC4.28 106/ulNormal4.20-5.40The [facility] HospitalComment on above:Performed By: #### CBC #### [facility] [address] [place] [address] Dr. Garfield NelsonWBC9.4 103/ulNormal4.0-11.0The [facility] HospitalComment on above: Performed By: #### CBC #### [facility] [address] [place] [address] Dr. Garfield NelsonMAGNESIUMon 02-09-4095Rpcqkcmye [Mass/Vol]2.0 mg/dLNormal1.8-2.4 The [facility] HospitalCommymichigan medical center clare on above:Performed By: #### VITAD #### [facility] [address] [place] [address] Dr. Garfield NelsonPHOSPHORUSon 31-94-9803Lzgkzirux [Mass/Vol]3.0 mg/dLNormal2.6-4.7 [facility] on above:Performed By: #### VITAD #### [facility] [address] [place] [address] Dr. Garfield NelsonPROF 14(COMP METB)on 71-37-7782Idkngqb [Mass/Vol]3.8 g/dLNormal 3.4-5.0The [facility] HospitalComment on above:Performed By: #### VITAD #### [facility] [address] [place] [address] Dr. Yilan ChangAlbumin/Globulin [Mass ratio]1.0 {ratio}NormalThe [facility] HospitalComment on above:Performed By: #### VITAD #### [facility] [address] [place] [address] Dr. Garfield Larson [Catalytic activity/Vol]93 U/YLqcgal45-934Osj [facility] HospitalCommymichigan medical center clare on above:Performed By: #### VITAD #### [facility] [address] [place] [address] Dr. Garfield Arrington [Catalytic activity/Vol]19 U/MXdmdrf28-47Irj [facility] HospitalComment on above:Performed By: #### VITAD #### [facility] [address] [place] [address] Dr. Garfield Hardy gap [Moles/Vol]9.5 mmol/LNormalThe [facility] HospitalComment on above:Performed By: #### VITAD #### [facility] [address] [place] [address] Dr. Garfield NelsonAST [Catalytic activity/Vol]22 U/MKyonbi24-67Aoq [facility] Southment on above:Performed By: #### VITAD #### [facility] [address] [place] [address] Dr. Garfield NelsonBilirubin [Mass/Vol]0.3 mg/dLNormal0.2-1.0The [facility] Comment on above:Performed By: #### VITAD #### [facility] [address] [place] [address] Dr. Garfield NelsonCalcium [Mass/Vol]8.7 mg/dLNormal8.5-10.1The [facility] Comment on above:Performed By: #### VITAD #### [facility] [address] [place] [address] Dr. Garfield NelsonChloride [Moles/Vol]104 mmol/EClvfgs37-945Yin [facility] Comment on above:Performed By: #### VITAD #### [facility] [address] [place] [address] Dr. Garfield NelsonCO2 [Moles/Vol]29.0 mmol/REyvffr67.0-32.0[facility] Comment on above:Performed By: #### VITAD #### [facility] [address] [address] [address] Garfield NelsonCreatinine [Mass/Vol]0.65 mg/dLNormal0.55-1.02[facility]S HospitalComment on above:Performed By: #### VITAD #### [facility] [address] [address] [address] Garfield GrimaldoGFR-AF SOUTH [place]UD[place]>60Normal>=60The [facility] HospitalComment on above:Performed By: #### VITAD #### [facility] [address] [address] [address] Garfield Wong-NON AF [place]>60Normal>=60[facility]S HospitalComment on above:Performed By: #### VITAD #### [facility] [address] [address] [address] Garfield NelsonGlobulin (S) [Mass/Vol]3.8 g/dLNormalThe [facility] HospitalComment on above:Performed By: #### VITAD #### [facility] [address] [address] [address] Garfield NelsonGlucose [Mass/Vol]87 mg/pTCbosxt59-049DdzAkron Children'S Hospital Comment on above:Performed By: #### VITAD #### [facility] [address] [address] [address] Garfield NelsonPotassium [Moles/Vol]3.5 mmol/LNormal3.5-5.1The [facility] Comment on above:Performed By: #### VITAD #### [facility] [address] [address] [address] Garfield NelsonProtein [Mass/Vol]7.6 g/dLNormal6.4-8.2[facility] Comment on above:Performed By: #### VITAD #### [facility] [address] [address] [address] Garfield NelsonSodium [Moles/Vol]139 mmol/THndavh225-720ScvAkron [facility]'S Hospital Comment on above:Performed By: #### VITAD #### [facility] [address] [address] [address] Garfield Guerra nitrogen [Mass/Vol]15.0 mg/dLNormal7.0-18.0[facility] HospitalComment on above:Performed By: #### VITAD #### [facility] [address] [address] [address] Garfield Guerra nitrogen/Creatinine [Mass ratio]23.1 mg/mgNormalThe [facility] HospitalComment on above:Performed By: #### VITAD #### [facility] [address] [address] [address] Garfield Davila RATE STREETMANERGRENon [id number] RATE39 mm/hrCritically high <=30[facility] HospitalComment on above:Performed By: #### MG, PHOS, CMP #### [facility] [address] [address] [address] Garfield Garcia RANDOM W/MICROSCOPICon 21-43-2023RDOMQVRJTXAP SEENNormalNONE SEENAkron Children'S HospitalComment on above:Performed By: #### CSUITE #### [facility] [address] [address] [address] Garfield Ayala Ql (U)NegativeNormalNEGATIVEAk[facility]'S [facility] Comment on above:Performed By: #### CSUITE #### [facility] [address] [address] [address] Garfield Morales SEENNormalNONE SEENAkron Children'S HospitalComment on above:Performed By: #### CSUITE #### [facility] [address] [address] [address] Garfield Rodriguez (U)CLEARNormalCLEARAkron Children'S HospitalComment on above: Performed By: #### CSUITE #### [facility] [address] [address] [address] Garfield Blancas (U)LT. YELLOWNormalYELLOWAkron Children'S HospitalComment on above:Performed By: #### CSUITE #### [facility] [address] [address] [address] Garfield NelsonCrystals LM Nom (Urine sed)NONE SEENNormalNONE SEENAkron Children'S HospitalComment on above:Performed By: #### CSUITE #### [facility] [address] [place] [address] Dr. Merrill ChangEpithelial cells LM Ql (Urine sed)RARENormalNONE SEEN /RAREAkron Children'S HospitalComment on above:Performed By: #### CSUITE #### [facility] [address] [place] [address] Dr. Garfield NelsonGlucose Ql (U)NegativeNormalNEGATIVEAkron Children'S HospitalComment on above:Performed By: #### CSUITE #### [facility] [address] [place] [address] Dr. Garfield NelsonHemoglobin Ql (U)NegativeNormalNEGATIVELicking Memorial Hospital on above:Performed By: #### CSBIJALE #### [facility] [address] [place] [address] Dr. Garfield NelsonKetones Ql (U)NegativeNormalNEGATIVEAkron Children'S HospitalComment on above:Performed By: #### CSBIJALE #### [facility] [address] [place] [address] Dr. Garfield NelsonLEUKOCYTESNegativeNormalNEGATIVEAkron Children'S HospitalCommymichigan medical center clare on above:Performed By: #### CSBIJALE #### [facility] [address] [place] [address] Dr. Garfield NelsonMUCOUSNONE SEENNormalNONE SEENAkron Children'S HospitalComment on above:Performed By: #### CSBIJALE #### [facility] [address] [place] [address] Dr. Garfield NelsonNitrite Ql (U)NegativeNormalNEGATIVEAkron Children'S HospitalComment on above:Performed By: #### CSUITE #### [facility] [address] [place] [address] Dr. Garfield NelsonpH (U)7.0 [pH]Normal5-9The [facility] HospitalComment on above: Performed By: #### CSUITE #### [facility] [address] [place] [address] Dr. Garfield NelsonRBCNONE SEENAbnormal0-2The [facility] HospitalComment on above: Performed By: #### CSUITE #### [facility] [address] [place] [address] Dr. Garfield NelsonSPEC GRAVITY<=1.517Hjqhnllg4.005-<=1.025[facility] Comment on above:Performed By: #### CSUITE #### [facility] [address] [place] [address] Dr. Garfield Garcia PROTEINNegativeNormalNEGATIVE/ TRACEThe [facility] Comment on above:Performed By: #### CSBIJALE #### [facility] [address] [place] [address] Dr. Garfield Ordazbilinogen Qn (U)0.2 {Marquise'U}/dLNormal0.2 - 1.0The [facility] HospitalComment on above:Performed By: #### CSBIJALE #### [facility] [address] [place] [address] Dr. Garfield Kelley SEENNormalNONE SEENAkron Children'S HospitalComment on above: Performed By: #### CSBIJALE #### [facility] [address] [place] [address] Dr. Garfield NelsonC3 and C4 COMPLEMENTon 03-75-7994Ovgtcvtldn C3, Kdzly004 mg/dL Xfrorg66-881Fuv [facility] HospitalComment on above:Performed By: #### VITAD #### [facility] [address] [place] [address] Dr. Garfield Camejo C4, Serum20 mg/gGWddsuw56-37Rre [facility] Comment on above:Performed By: #### VITAD #### [facility] [address] [place] [address] Dr. Garfield Camejo TOTAL (CH50)on 92-21-1148Xsstikriym, Total (CH50)>60 Normal>41[facility]S HospitalComment on above:Result Comment: Age Male Female [...] of range values.Performed By: #### CH50T #### [facility] [address] [place] [address] Dr. Garfield MckeonC AUTO DIFFon 76-54-9545BFXW #0.1 103/ulNormal0.0-0.1[facility] HospitalComment on above:Performed By: #### VITAD #### [facility] [address] [place] [address] Dr. Garfield NelsonBasophils/100 WBC (Bld)0.6 %Normal0.2-2.0[facility] Comment on above:Performed By: #### VITAD #### [facility] [address] [place] [address] Dr. Garfield Michelle #0.1 103/ulNormal0.0-0.7The [facility] HospitalComment on above: Performed By: #### VITAD #### [facility] [address] [place] [address] Dr. Garfield Grimaldoosinophils/100 WBC (Bld)1.4 %Normal0.9-7.0[facility] Comment on above:Performed By: #### VITAD #### [facility] [address] [place] [address] Dr. Garfield Grimaldorythrocyte distribution width (RBC) [Ratio]14.2 %Bhoadr80.0-15.0 [facility] HospitalComment on above:Performed By: #### VITAD #### [facility] [address] [place] [address] Dr. Garfield NelsonHematocrit (Bld) [Volume fraction]39.1 %Lewckn21.0-48.0The [facility] HospitalComment on above:Performed By: #### VITAD #### [facility] [address] [place] [address] Dr. Garfield NelsonHemoglobin (Bld) [Mass/Vol]12.7 g/eAOrtqeu30.0-16.0The [facility] HospitalComment on above:Performed By: #### VITAD #### [facility] [address] [place] [address] Dr. Garfield Quiroz #0.02 10e3/ulNormal0.00-0.03The [facility] HospitalComment on above:Performed By: #### VITAD #### [facility] [address] [place] [address] Dr. Garfield Quiroz %0.2 %Normal0.0-0.5The [facility] HospitalComment on above: Performed By: #### VITAD #### [facility] [address] [place] [address] Dr. Garfield Huynh #2.0 103/ulNormal1.2-3.8The [facility] HospitalComment on above:Performed By: #### VITAD #### [facility] [address] [place] [address] Dr. Garfield Reddyhocytes/100 WBC (Bld)24.9 %Pakhaf76.5-60.0The [facility] HospitalComment on above:Performed By: #### VITAD #### [facility] [address] [place] [address] Dr. Garfield PraterUAL DIFF REQNONormalThe [facility] HospitalComment on above: Performed By: #### VITAD #### [facility] [address] [place] [address] Dr. Garfield Jean (RBC) [Entitic mass]28.5 fbKgdslb67.7-34.0The [facility] HospitalComment on above:Performed By: #### VITAD #### [facility] [address] [place] [address] Dr. Garfield FritzHC (RBC) [Mass/Vol]32.5 g/xQItzdtm24.9-35.2The [facility] HospitalComment on above:Performed By: #### VITAD #### [facility] [address] [place] [address] Dr. Garfield Holcomb (RBC) [Entitic vol]87.7 pTIzkuon73.0-99.0The [facility] HospitalComment on above:Performed By: #### VITAD #### [facility] [address] [place] [address] Dr. Garfield Baker #1.0 103/ulCritically high0.3-0.8The [facility] Comment on above:Performed By: #### VITAD #### [facility] [address] [place] [address] Dr. Garfield Bajwaocytes/100 WBC (Bld)12.3 %Critically high1.7-12.0The [facility] HospitalComment on above:Performed By: #### VITAD #### [facility] [address] [place] [address] Dr. Garfield Roman #4.9 103/ulNormal1.4-6.5The [facility] HospitalComment on above:Performed By: #### VITAD #### [facility] [address] [place] [address] Dr. Garfield Acevesutrophils/100 WBC (Bld)60.6 %Wygnyi15.0-75.0The [facility] HospitalComment on above:Performed By: #### VITAD #### [facility] [address] [place] [address] Dr. Garfield Paezlet mean volume (Bld) [Entitic vol]12.0 fLNormal9.5-13.5The [facility] HospitalComment on above:Performed By: #### VITAD #### [facility] [address] [place] [address] Dr. Garfield AyonT247 103/ywOsofjt103-653Gkx [facility] HospitalComment on above: Performed By: #### VITAD #### [facility] [address] [place] [address] Dr. Garfield NelsonRBC4.46 106/ulNormal4.20-5.40The [facility] HospitalComment on above:Performed By: #### VITAD #### [facility] [address] [place] [address] Dr. Garfield NelsonWBC8.1 103/ulNormal4.0-11.0The [facility] HospitalComment on above: Performed By: #### VITAD #### [facility] [address] [place] [address] Dr. Garfield NelsonMAGNESIUMon 73-57-5755Hajrsihwi [Mass/Vol]2.0 mg/dLNormal1.8-2.4 The [facility] HospitalComment on above:Performed By: #### MG PHOS, CMP #### [facility] [address] [place] [address] Dr. Garfield NelsonPHOSPHORUSon 68-10-6233Tahscjnnl [Mass/Vol]3.6 mg/dLNormal2.6-4.7 The [facility] HospitalComment on above:Performed By: #### MG, PHOS, CMP #### [facility] [address] [place] [address] Dr. Garfield NelsonPRODalila 14(COMP METB)on 84-86-9060Hafbnqg [Mass/Vol]3.8 g/dLNormal 3.4-5.0The [facility] HospitalComment on above:Performed By: #### MG, PHOS, CMP #### [facility] [address] [place] [address] Dr. Garfield NelsonAlbumin/Globulin [Mass ratio]1.0 {ratio}NormalThe [facility] on above:Performed By: #### MG, PHOS, CMP #### [facility] [address] [place] [address] Dr. Garfield TorresP [Catalytic activity/Vol]69 U/QAmjbeg22-337Ewd [facility] HospitalComment on above:Performed By: #### MG, PHOS, CMP #### [facility] [address] [address] [address] Garfield TorresT [Catalytic activity/Vol]14 U/VLievsg07-63Yqn [facility] HospitalComment on above:Performed By: #### MG, PHOS, CMP #### [facility] [address] [place] [address] Dr. Garfield NelsonAnion gap [Moles/Vol]12.4 mmol/LNormalThe [facility] Comment on above:Performed By: #### MG, PHOS, CMP #### [facility] [address] [place] [address] Dr. Garfield NelsonAST [Catalytic activity/Vol]22 U/XIdtgvj15-62Rcg [facility] HospitalComment on above:Performed By: #### MG, PHOS, CMP #### [facility] [address] [place] [address] Dr. Garfield NelsonBilirubin [Mass/Vol]0.3 mg/dLNormal0.2-1.0The [facility] Comment on above:Performed By: #### MG, PHOS, CMP #### [facility] [address] [place] [address] Dr. Garfield NelsonCalcium [Mass/Vol]8.6 mg/dLNormal8.5-10.1[facility] Comment on above:Performed By: #### MG, PHOS, CMP #### [facility] [address] [place] [address] Dr. Garfield NelsonChloride [Moles/Vol]101 mmol/GQntvov83-797Alw [facility] Comment on above:Performed By: #### MG, PHOS, CMP #### [facility] [address] [place] [address] Dr. Garfield NelsonCO2 [Moles/Vol]29.4 mmol/LWsurde69.0-32.0The [facility] Comment on above:Performed By: #### MG, PHOS, CMP #### [facility] [address] [place] [address] Dr. Garfield NelsonCreatinine [Mass/Vol]0.79 mg/dLNormal0.55-1.02The Jose HospitalComment on above:Performed By: #### MG, PHOS, CMP #### [facility] [address] [address] [address] Garfield GrimaldoGFR-AF SOUTH SUD[place]ESE>60Normal>=60The [facility] HospitalComment on above:Performed By: #### MG, PHOS, CMP #### [facility] [address] [address] [address] Garfield GrimaldoGFR-NON AF [place]>60Normal>=60The [facility] HospitalComment on above:Performed By: #### MG, PHOS, CMP #### [facility] [address] [address] [address] Garfield NelsonGlobulin (S) [Mass/Vol]3.9 g/dLNormalThe [facility] HospitalComment on above:Performed By: #### MG, PHOS, CMP #### [facility] [address] [place] [address] Dr. Garfield NelsonGlucose [Mass/Vol]109 mg/dLCritically okje60-510Qxi [facility] Southment on above:Performed By: #### MG, PHOS, CMP #### [facility] [address] [place] [address] Dr. Garfield NelsonPotassium [Moles/Vol]3.8 mmol/LNormal3.5-5.1[facility] Comment on above:Performed By: #### MG, PHOS, CMP #### [facility] [address] [place] [address] Dr. Garfield NelsonProtein [Mass/Vol]7.7 g/dLNormal6.4-8.2The [facility] Comment on above:Performed By: #### MG, PHOS, CMP #### [facility] [address] [place] [address] Dr. Garfield NelsonSodium [Moles/Vol]139 mmol/PPcizqb102-164SafAkron Children'S Hospital Comment on above:Performed By: #### MG, PHOS, CMP #### [facility] [address] [place] [address] Dr. Yilan ChangUrea nitrogen [Mass/Vol]17.0 mg/dLNormal7.0-18.0[facility] Hospitalment on above:Performed By: #### MGDAVIDS, CMP #### [facility] [address] [address] [address] Garfield Geurra nitrogen/Creatinine [Mass ratio]21.5 mg/mgNormalThe [facility] HospitalComment on above:Performed By: #### MGDAVIDS, CMP #### [facility] [address] [address] [address] Garfield Davila RATE [facility] HOSPITALREN 41-88-0177GNB RATE40 mm/hrCritically high <=30The [facility] HospitalComment on above:Performed By: #### CSUITE #### [facility] [address] [place] [address] Dr. Garfield Garcia RANDOM W/MICROSCOPICon 03-69-8064ROFDXBLEAUFM SEENNormalNONE SEENAkron Children'S HospitalComment on above:Performed By: #### CSUITE #### [facility] [address] [address] [address] Garfield Ayala Ql (U)NegativeNormalNEGATIVEThe [facility] Comment on above:Performed By: #### CSUITE #### [facility] [address] [place] [address] Dr. Garfield Morales SEENNormalNONE SEENAkron Children'S HospitalComment on above:Performed By: #### CSUITE #### [facility] [address] [address] [address] Garfield Rodriguez (U)CLEARNormalCLEARAkron Children'S HospitalComment on above: Performed By: #### CSUITE #### [facility] [address] [place] [address] Dr. Garfield Blancas (U)LT. YELLOWNormalYELLOWAkron Children'S HospitalComment on above:Performed By: #### CSUITE #### [facility] [address] [place] [address] Dr. Yilan ChangCrystals LM Nom (Urine sed)NONE SEENNormalNONE SEENAkron Children'S HospitalComment on above:Performed By: #### CSUITE #### [facility] [address] [place] [address] Dr. Garfield Grimaldopithelial cells LM Ql (Urine sed)NONE SEENNormalNONE SEEN /RARE The [facility] HospitalComment on above:Performed By: #### CSUITE #### [facility] [address] [place] [address] Dr. Garfield NelsonGlucose Ql (U)NegativeNormalNEGATIVEAkron Children'S HospitalComment on above:Performed By: #### CSUITE #### [facility] [address] [place] [address] Dr. Garfield NelsonHemoglobin Ql (U)NegativeNormalNEGATIVELicking Memorial Hospital on above:Performed By: #### CSUITE #### [facility] [address] [place] [address] Dr. Garfield NelsonKetones Ql (U)NegativeNormalNEGATIVEAkron Children'S HospitalComment on above:Performed By: #### CSUITE #### [facility] [address] [place] [address] Dr. Garfield NelsonLEUKOCYTESNegativeNormalNEGATIVEAkron Children'S HospitalCommymichigan medical center clare on above:Performed By: #### CSUITE #### [facility] [address] [place] [address] Dr. Garfield NelsonMUCOUSNONE SEENNormalNONE SEENAkron Children'S HospitalComment on above:Performed By: #### CSUITE #### [facility] [address] [place] [address] Dr. Garfield Fitzpatricktrite Ql (U)NegativeNormalNEGATIVEAkron Children'S HospitalComment on above:Performed By: #### CSUITE #### [facility] [address] [place] [address] Dr. Garfield NelsonpH (U)6.0 [pH]Normal5-9[facility] HospitalComment on above: Performed By: #### CSUITE #### [facility] [address] [address] [address] Garfield NelsonErvrjXHW6-2Umhmer4-8Lsn [facility] HospitalComment on above:Performed By: #### CSUITE #### [facility] [address] [address] [address] Garfield NelsonSPEC GRAVITY1.750Pisfvd1.005-<=1.025The [facility] HospitalComment on above:Performed By: #### CSUITE #### [facility] [address] [address] [address] Garfiedl Garcia PROTEINNegativeNormalNEGATIVE/ TRACEThe [facility] Comment on above:Performed By: #### CSUITE #### [facility] [address] [place] [address] Dr. Garfield Ordazbilinogen Qn (U)0.2 {Marquise'U}/dLNormal0.2 - 1.0The [facility] HospitalComment on above:Performed By: #### CSUITE #### [facility] [address] [place] [address] Dr. Garfield NelsonWBCNONE SEENNormalNONE SEENThe [facility] HospitalComment on above: Performed By: #### CSUITE #### [facility] [address] [place] [address] Dr. Garfield Kraft echo transthoracicon [id number] echo transthoracic [facility] [place] [address] Echocardiogram Signed Patient: Sierra Ashley MR#: [id number] : 1965 Acct:[id number] Age/Sex: 56 / F ADM Date: 01/02/22 Loc: Room: Type: [facility] Attending Dr: Patricia SALEH Ordering Provider: THERESE Shaw Date of Service: 01/02/22/ ECH/ECH echo transthoracic: Pulmonary fibrosis. PHTN. 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 Copies to: Mayte Castro MD, FACC THERESE [place] BSA: 1.5 m2 BP: 115/83 mmHg HR: 75 Reason For Study: Pulmonary fibrosis. PHTN. 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 History: pulmonary hypertension Interpretation Summary [...] 01/02/22 1254 Signed By: Mayte Castro MD, [facility] 01/02/22 1417[facility] ACOG PANEL 2: 30 to 65on 12-23-2021..NormalAkron Children'S HospitalComment on above:Result Comment: Performed at: WBPerformed By: #### MG, PHOS, CMP #### [facility] [address] [place] [address] Dr. Garfield NelsonAge Gdln ACOG Idzalrg71-84MablswNwnFulton County Health CenterComment on above:Performed By: #### MG, PHOS, CMP #### [facility] [address] [place] [address] Dr. Garfield NelsonDIAGNOSIS:CommentWayne HealthCare Main Campus on above: Result Comment: NEGATIVE FOR INTRAEPITHELIAL LESION OR MALIGNANCY. CELLULAR CHANGES ASSOCIATED WITH ATROPHY ARE PRESENT. Performed at: WBPerformed By: #### MG, PHOS, CMP #### [facility] [address] [place] [address] Dr. Garfield NelsonHPV AptimaNegativeNormalNegativeAkron Children'S HospitalCommymichigan medical center clare on above:Result Comment: This nucleic acid amplification test detects fourteen high-risk HPV types (16,18,31,33,35,39,45,51,52,56,58,59,66,68) without differentiation. Performed at: =GPerformed By: #### MG, PHOS, CMP #### [facility] [address] [place] [address] Dr. Garfield NelsonMethodology:CommentWayne HealthCare Main Campus on above: Result Comment: This liquid based ThinPrep(R) pap test was screened with the use of an image guided system. Performed at: WBPerformed By: #### MG, PHOS, CMP #### [facility] [address] [place] [address] Dr. Garfield NelsonNote:CommentWayne HealthCare Main Campus on above:Result Comment: The Pap smear is a screening test designed to aid in the detection of premalignant and malignant conditions of the uterine cervix. It is not a diagnostic procedure and should not be used as the sole means of detecting cervical cancer. Both false-positive and false-negative reports do occur. . Performed at: WBPerformed By: #### MG, PHOS, CMP #### [facility] [address] [place] [address] Dr. Garfield NelsonPerformed by:CommentWayne HealthCare Main Campus on above: Result Comment: Veronique Noble, Continuous Dryout Operator (ASCP) Performed at: WBPerformed By: #### MG, PHOS, CMP #### [facility] [address] [place] [address] Dr. Garfield NelsonSpecimen adequacy:CommentWayne HealthCare Main Campus on above:Result Comment: Satisfactory for evaluation. Endocervical component may not be distinguished in cases of atrophy. Performed at: WBPerformed By: #### MG, PHOS, CMP #### [facility] [address] [place] [address] Dr. Garfield Viramontes AUTO DIFFon [id number] #0.0 103/ulNormal0.0-0.1The [facility] HospitalComment on above:Performed By: #### VITAD #### [facility] [address] [place] [address] Dr. Garfield Vigilsophils/100 WBC (Bld)0.6 %Normal0.2-2.0[facility] Comment on above:Performed By: #### VITAD #### [facility] [address] [place] [address] Dr. Garfield Michelle #0.2 103/ulNormal0.0-0.7The [facility] HospitalComment on above: Performed By: #### VITAD #### [facility] [address] [place] [address] Dr. Garfield Grimaldoosinophils/100 WBC (Bld)2.8 %Normal0.9-7.0The [facility] Comment on above:Performed By: #### VITAD #### [facility] [address] [place] [address] Dr. Garfield Grimaldorythrocyte distribution width (RBC) [Ratio]14.0 %Kxxopd75.0-15.0 The [facility] HospitalComment on above:Performed By: #### VITAD #### [facility] [address] [place] [address] Dr. Garfield NelsonHematocrit (Bld) [Volume fraction]42.3 %Quegcq57.0-48.0The [facility] HospitalComment on above:Performed By: #### VITAD #### [facility] [address] [place] [address] Dr. Garfield NelsonHemoglobin (Bld) [Mass/Vol]13.3 g/bHQwuyhp83.0-16.0The Leonard HospitalComment on above:Performed By: #### VITAD #### [facility] [address] [place] [address] Dr. Garfield Quiroz #0.02 10e3/ulNormal0.00-0.03The [facility] HospitalComment on above:Performed By: #### VITAD #### [facility] [address] [place] [address] Dr. Garfield Quiroz %0.3 %Normal0.0-0.5The [facility] HospitalComment on above: Performed By: #### VITAD #### [facility] [address] [place] [address] Dr. Garfield Huynh #1.9 103/ulNormal1.2-3.8The [facility] HospitalComment on above:Performed By: #### VITAD #### [facility] [address] [place] [address] Dr. Garfield Reddyhocytes/100 WBC (Bld)30.0 %Fswgov41.5-60.0The [facility] HospitalComment on above:Performed By: #### VITAD #### [facility] [address] [place] [address] Dr. Garfield PraterUAL DIFF REQNONormalThe [facility] HospitalComment on above: Performed By: #### VITAD #### [facility] [address] [place] [address] Dr. Garfield Jean (RBC) [Entitic mass]28.5 mwHpwbij37.7-34.0The Leonard HospitalComment on above:Performed By: #### VITAD #### [facility] [address] [place] [address] Dr. Garfield FritzHC (RBC) [Mass/Vol]31.4 g/pMDoznre69.9-35.2The Leonard HospitalComment on above:Performed By: #### VITAD #### [facility] [address] [place] [address] Dr. Garfield FritzV (RBC) [Entitic vol]90.8 uFAmruef40.0-99.0The Leonard HospitalComment on above:Performed By: #### VITAD #### [facility] [address] [place] [address] Dr. Garfield Baker #0.9 103/ulCritically high0.3-0.8The [facility] Comment on above:Performed By: #### VITAD #### [facility] [address] [place] [address] Dr. Garfield Bajwaocytes/100 WBC (Bld)13.4 %Critically high1.7-12.0The [facility] HospitalComment on above:Performed By: #### VITAD #### [facility] [address] [place] [address] Dr. Garfield Roman #3.4 103/ulNormal1.4-6.5The [facility] HospitalComment on above:Performed By: #### VITAD #### [facility] [address] [place] [address] Dr. Garfield Acevesutrophils/100 WBC (Bld)52.9 %Iydhih64.0-75.0The [facility] HospitalComment on above:Performed By: #### VITAD #### [facility] [address] [place] [address] Dr. Garfield Paezlet mean volume (Bld) [Entitic vol]12.2 fLNormal9.5-13.5The [facility] HospitalComment on above:Performed By: #### VITAD #### [facility] [address] [place] [address] Dr. Garfield NelsonPLT258 103/ejBwshhi317-232YjeSumma Health Wadsworth - [facility]itt[facility] on above: Performed By: #### VITAD #### [facility] [address] [place] [address] Dr. Garfield NelsonRBC4.66 106/ulNormal4.20-5.40The [facility] on above:Performed By: #### VITAD #### [facility] [address] [place] [address] Dr. Garfield NelsonWBC6.3 103/ulNormal4.0-11.0[facility] on above: Performed By: #### VITAD #### [facility] [address] [place] [address] Dr. Garfield NelsonLIPID PROFILEon 44-93-4048IULG-HDL RATIO NORMSKindred Hospital LimaCommymichigan medical center clare on above:Result Comment: 3.3 - 4.4 LOW RISK 4.4 - 7.1 AVERAGE RISK 7.1 - 11.0 MODERATE RISK >11.0 HIGH RISKPerformed By: #### MG, PHOS, CMP #### [facility] [address] [place] [address] Dr. Garfield NelsonCholesterol [Mass/Vol]204 mg/dLCritically high<=200The [facility] on above:Performed By: #### MG, PHOS, CMP #### [facility] [address] [place] [address] Dr. Garfield NelsonCholesterol in HDL [Mass/Vol]75 mg/dLCritically dzia56-06Vmh [facility] on above:Performed By: #### MG, PHOS, CMP #### [facility] [address] [place] [address] Dr. Garfield NelsonCholesterol in LDL [Mass/Vol]121.0 mg/dLWayne HealthCare Main Campus on above:Performed By: #### MG, PHOS, CMP #### [facility] [address] [place] [address] Dr. Garfield Aguilaresteranupam.total/Cholesterol in HDL [Mass ratio]2.7 {ratio} NormalThe [facility] HospitalComment on above:Performed By: #### MG, PHOS, CMP #### [facility] [address] [place] [address] Dr. Garfield Romero NORMAL> or = 60 mg/dl - LOW CARDIOVASCULAR RISK <40 mg/dl - HIGH CARDIOVASCULAR RISKSt. John of God HospitalComment on above:Performed By: #### MG, PHOS, CMP #### [facility] [address] [place] [address] Dr. Garfield Shields CALC NORMALSEE BELOWNoFulton County Health CenterComment on above:Result Comment: <100 mg/dl OPTIMAL 100 - 129 mg/dl NEAR OR ABOVE OPTIMAL 130 - 159 mg/dl BORDERLINE HIGH 160 - 189 mg/dl HIGH >190 mg/dl VERY HIGH Performed By: #### MG, PHOS, CMP #### [facility] [address] [place] [address] Dr. Garfield NelsonTriglyceride [Mass/Vol]40 mg/dLNormal<=150The [facility] Comment on above:Performed By: #### MG, PHOS, CMP #### [facility] [address] [place] [address] Dr. Garfield Trevizo CALC8.0 mg/dLNoFulton County Health CenterComment on above: Performed By: #### MG, PHOS, CMP #### [facility] [address] [place] [address] Dr. Garfield NelsonPROF 14(COMP METB)on 56-57-7504Yoxywpr [Mass/Vol]3.8 g/dLNormal 3.4-5.0The [facility] HospitalComment on above:Performed By: #### MG, PHOS, CMP #### [facility] [address] [place] [address] Dr. Garfield NelsonAlbumin/Globulin [Mass ratio]0.9 {ratio}NormalThe [facility] HospitalComment on above:Performed By: #### MG, PHOS, CMP #### [facility] [address] [place] [address] Dr. Yilan ChangALP [Catalytic activity/Vol]65 U/AShcekg22-130Lvg [facility] HospitalComment on above:Performed By: #### MG, PHOS, CMP #### [facility] [address] [place] [address] Dr. Garfield TorresT [Catalytic activity/Vol]19 U/XMprnbd95-92Bxk [facility] HospitalComment on above:Performed By: #### MG, PHOS, CMP #### [facility] [address] [place] [address] Dr. Garfield Valdezon gap [Moles/Vol]10.6 mmol/LNormalAkron Children'S [facility] Comment on above:Performed By: #### MG, PHOS, CMP #### [facility] [address] [place] [address] Dr. Garfield NelsonAST [Catalytic activity/Vol]18 U/OYuxjiw03-63Cpq [facility] HospitalComment on above:Performed By: #### MG, PHOS, CMP #### [facility] [address] [place] [address] Dr. Garfield NelsonBilirubin [Mass/Vol]0.5 mg/dLNormal0.2-1.0[facility] Comment on above:Performed By: #### MG, PHOS, CMP #### [facility] [address] [place] [address] Dr. Garfield NelsonCalcium [Mass/Vol]8.9 mg/dLNormal8.5-10.1[facility] Comment on above:Performed By: #### MG, PHOS, CMP #### [facility] [address] [place] [address] Dr. Garfield NelsonChloride [Moles/Vol]106 mmol/DMguqgo07-523Zsg [facility] Comment on above:Performed By: #### MG, PHOS, CMP #### [facility] [address] [place] [address] Dr. Garfield NelsonCO2 [Moles/Vol]28.6 mmol/OUxrzch38.0-32.0The [facility] Comment on above:Performed By: #### MG, PHOS, CMP #### [facility] [address] [address] [address] Garfield NelsonCreatinine [Mass/Vol]0.88 mg/dLNormal0.55-1.02The [facility] HospitalComment on above:Performed By: #### MG, PHOS, CMP #### [facility] [address] [address] [address] Garfield GrimaldoGFR-AF SOUTH SUDANESE>60Normal>=60The [facility] HospitalComment on above:Performed By: #### MG, PHOS, CMP #### [facility] [address] [address] [address] Garfield GrimaldoGFR-NON AF SOUTH SUDANESE>60Normal>=60The [facility] HospitalComment on above:Performed By: #### MG, PHOS, CMP #### [facility] [address] [place] [address] Dr. Garfield NelsonGlobulin (S) [Mass/Vol]4.1 g/dLNormalThe [facility] HospitalComment on above:Performed By: #### MG, PHOS, CMP #### [facility] [address] [address] [address] Garfield NelsonGlucose [Mass/Vol]93 mg/xJQetjpa78-469Jkh [facility] Comment on above:Performed By: #### MG, PHOS, CMP #### [facility] [address] [place] [address] Dr. Garfield NelsonPotassium [Moles/Vol]4.2 mmol/LNormal3.5-5.1The [facility] Comment on above:Performed By: #### MG, PHOS, CMP #### [facility] [address] [address] [address] Garfield NelsonProtein [Mass/Vol]7.9 g/dLNormal6.4-8.2The [facility] Comment on above:Performed By: #### MG, PHOS, CMP #### [facility] [address] [address] [address] Garfield NelsonSodium [Moles/Vol]141 mmol/YOzgyqw500-707Ucq [facility] Comment on above:Performed By: #### MGDAVIDS, CMP #### [facility] [address] [address] [address] Garfield Guerra nitrogen [Mass/Vol]22.0 mg/dLCritically high7.0-18.0The [facility] HospitalComment on above:Performed By: #### MGDAVIDS, CMP #### [facility] [address] [place] [address] Dr. Garfield Guerra nitrogen/Creatinine [Mass ratio]25.0 mg/mgNoFulton County Health CenterComment on above:Performed By: #### DAVID REEDS, CMP #### [facility] [address] [place] [address] Dr. Garfield Lagunas 22-60-2744YSO7.939 uIU/mLNormal0.358-3.740The [facility] HospitalComment on above:Performed By: #### RAKESH REED, CMP #### [facility] [address] [place] [address] Dr. Garfield NelsonVITAMIN D 25 OHon 12-66-3286NCR D 25-OH34.5 ng/mLNormalAkron Children'S HospitalComment on above:Performed By: #### VITAD #### [facility] [address] [place] [address] Dr. Garfield Suggs RANGESSEE BELOWSt. John of God HospitalComment on above: Result Comment: <20 ng/mL Vit D deficient 20 - <30 ng/mL Vit D insufficient 30 - 100 ng/mL Vit D sufficient >100 ng/mL Potential ToxicityPerformed By: #### VITAD #### [facility] [address] [place] [address] Dr. Garfield NelsonC3 and C4 COMPLEMENTon 44-50-9031Acdgpuaawa C3, Bhgaj884 mg/dL Fsifdu91-598LldAkron Children'S HospitalComment on above:Performed By: #### CSUITE #### [facility] [address] [place] [address] Dr. Garfield NelsonComplement C4, Serum19 mg/xUSlswkn31-91Pjp [facility] Comment on above:Performed By: #### CSUITE #### [facility] [address] [address] [address] Garfield NelsonMG MAMM SCREEN 3D PATRICA CADon 30-59-8622QE MAMM SCREEN 3D PATRICA CAD Patient: SIERRA ASHLEY Exam Date: 11/14/2021 : 1965 Gender:F Ordering : DR JUDITH MARTINEZ . Admission #: [id number] Family : Order #: [id number] CLICK HERE TO VIEW EXAM RADIOLOGY REPORT [...] breast cancer at age 60. LOCATION: [facility] BREAST COMPOSITION: Extremely dense, which [...] by: Guanaco Chong MD on 11/14/2021 at 12:25NormalThMiddletown Hospital COMPLEMENT TOTAL (CH50)on 59-99-9087Uqzniktlor, Total (CH50)>60Normal>41[facility]'S HospitalComment on above:Result Comment: Age Male Female [...] of range values.Performed By: #### CH50T #### [facility] [address] [place] [address] Dr. Garfield Viramontes AUTO DIFFon 85-60-2901ABFF #0.1 103/ulNormal0.0-0.1[facility]'S HospitalComment on above:Performed By: #### CSUITE #### [facility] [address] [place] [address] Dr. Garfield NelsonBasophils/100 WBC (Bld)0.7 %Normal0.2-2.0The [facility] Comment on above:Performed By: #### CSUITE #### [facility] [address] [place] [address] Dr. Garfield iMchelle #0.2 103/ulNormal0.0-0.7The [facility] HospitalComment on above: Performed By: #### CSUITE #### [facility] [address] [place] [address] Dr. Garfield Grimaldoosinophils/100 WBC (Bld)2.6 %Normal0.9-7.0[facility] Comment on above:Performed By: #### CSUITE #### [facility] [address] [place] [address] Dr. Garfield Grimaldorythrocyte distribution width (RBC) [Ratio]14.1 %Vfwfyk88.0-15.0 [facility]S HospitalComment on above:Performed By: #### CSUITE #### [facility] [address] [place] [address] Dr. Garfield NelsonHematocrit (Bld) [Volume fraction]42.2 %Gcsovu24.0-48.0The [facility] HospitalComment on above:Performed By: #### CSUITE #### [facility] [address] [place] [address] Dr. Garfield NelsonHemoglobin (Bld) [Mass/Vol]13.2 g/cEAmiwbb25.0-16.0The [facility] HospitalComment on above:Performed By: #### CSUITE #### [facility] [address] [address] [address] Garfield Quiroz #0.02 10e3/ulNormal0.00-0.03[facility] on above:Performed By: #### CSBIJALE #### [facility] [address] [place] [address] Dr. Garfield Quiroz %0.3 %Normal0.0-0.5The [facility] HospitalCommymichigan medical center clare on above: Performed By: #### CSBIJALE #### [facility] [address] [place] [address] Dr. Garfield Huynh #2.1 103/ulNormal1.2-3.8The [facility] HospitalComment on above:Performed By: #### OSIRISE #### [facility] [address] [place] [address] Dr. Garfield Reddyhocytes/100 WBC (Bld)28.2 %Plypfo37.5-60.0[facility] on above:Performed By: #### OSIRISE #### [facility] [address] [place] [address] Dr. Garfield PraterUAL DIFF REQNONormalThe [facility] HospitalCommymichigan medical center clare on above: Performed By: #### OSIRISE #### [facility] [address] [place] [address] Dr. Garfield Fritz (RBC) [Entitic mass]28.3 ssTocbtg84.7-34.0[facility] on above:Performed By: #### CSBIJALE #### [facility] [address] [place] [address] Dr. Garfield Fritz (RBC) [Mass/Vol]31.3 g/xTBqxtiv20.9-35.2[facility] on above:Performed By: #### CSBIJALE #### [facility] [address] [place] [address] Dr. Garfield Fritz (RBC) [Entitic vol]90.6 fMNzswdp74.0-99.0The Jose HospitalComment on above:Performed By: #### AN #### [facility] [address] [place] [address] Dr. Garfield Baker #1.0 103/ulCritically high0.3-0.8The [facility] Comment on above:Performed By: #### AN #### [facility] [address] [place] [address] Dr. Garfield Bajwaocytes/100 WBC (Bld)13.9 %Critically high1.7-12.0The [facility] HospitalComment on above:Performed By: #### AN #### [facility] [address] [place] [address] Dr. Garfield Roman #4.0 103/ulNormal1.4-6.5The [facility] HospitalComment on above:Performed By: #### AN #### [facility] [address] [place] [address] Dr. Garfield Acevesutrophils/100 WBC (Bld)54.3 %Ezlzcx92.0-75.0The [facility] HospitalComment on above:Performed By: #### AN #### [facility] [address] [place] [address] Dr. Garfield Paezlet mean volume (Bld) [Entitic vol]12.3 fLNormal9.5-13.5The [facility] HospitalComment on above:Performed By: #### AN #### [facility] [address] [place] [address] Dr. Garfield NelsonPLT256 103/sdJiwtmh466-304Qcx [facility] Memorial HospitalComment on above: Performed By: #### AN #### [facility] [address] [place] [address] Dr. Garfield NelsonRBC4.66 106/ulNormal4.20-5.40The [facility] HospitalComment on above:Performed By: #### AN #### [facility] [address] [place] [address] Dr. Garfield NelsonWBC7.4 103/ulNormal4.0-11.0The [facility]ment on above: Performed By: #### CSUITE #### [facility] [address] [place] [address] Dr. Garfield NelsonMAGNESIUMon 74-05-6510Bknehxltd [Mass/Vol]2.0 mg/dLNormal1.8-2.4 [facility] on above:Performed By: #### MG, PHOS, CMP #### [facility] [address] [place] [address] Dr. Garfield NelsonPHOSPHORUSon 11-60-3891Gyoneqoyd [Mass/Vol]3.4 mg/dLNormal2.6-4.7 [facility] on above:Performed By: #### MG, PHOS, CMP #### [facility] [address] [place] [address] Dr. Garfield NelsonPROF 14(COMP METB)on 94-83-0224Ysmdmeg [Mass/Vol]3.9 g/dLNormal 3.4-5.0[facility] on above:Performed By: #### MG, PHOS, CMP #### [facility] [address] [place] [address] Dr. Garfield NelsonAlbumin/Globulin [Mass ratio]1.0 {ratio}NormalThe [facility] on above:Performed By: #### MG, PHOS, CMP #### [facility] [address] [place] [address] Dr. Garfield Larson [Catalytic activity/Vol]68 U/ETrrgnq30-177[facility] on above:Performed By: #### MG, PHOS, CMP #### [facility] [address] [place] [address] Dr. Garfield Arrington [Catalytic activity/Vol]16 U/ALqbkev34-49Cis [facility] on above:Performed By: #### MG, PHOS, CMP #### [facility] [address] [place] [address] Dr. Garfield Hardy gap [Moles/Vol]9.7 mmol/LNormalThe [facility] HospitalComment on above:Performed By: #### MG, PHOS, CMP #### [facility] [address] [place] [address] Dr. Garfield NelsonAST [Catalytic activity/Vol]17 U/MQeidjh09-44Ikp [facility] HospitalComment on above:Performed By: #### MG, PHOS, CMP #### [facility] [address] [place] [address] Dr. Garfield NelsonBilirubin [Mass/Vol]0.4 mg/dLNormal0.2-1.0The [facility] Comment on above:Performed By: #### MG, PHOS, CMP #### [facility] [address] [place] [address] Dr. Garfield NelsonCalcium [Mass/Vol]9.0 mg/dLNormal8.5-10.1The [facility] Comment on above:Performed By: #### MG, PHOS, CMP #### [facility] [address] [place] [address] Dr. Garfield NelsonChloride [Moles/Vol]103 mmol/DFwykgp26-682Ero [facility] Comment on above:Performed By: #### MG, PHOS, CMP #### [facility] [address] [place] [address] Dr. Garfield NelsonCO2 [Moles/Vol]30.2 mmol/UDotoyk21.0-32.0[facility] Comment on above:Performed By: #### MG, PHOS, CMP #### [facility] [address] [place] [address] Dr. Garfield NelsonCreatinine [Mass/Vol]0.92 mg/dLNormal0.55-1.02The [facility] HospitalComment on above:Performed By: #### MG, PHOS, CMP #### [facility] [address] [place] [address] Dr. Garfield GriamldoGFR-AF SOUTH SUDANESE>60Normal>=60The [facility] HospitalComment on above:Performed By: #### MG, PHOS, CMP #### [facility] [address] [address] [address] Garfield GrimaldoGFR-NON AF SOUTH SUD[place]ESE>60Normal>=60The [facility] HospitalComment on above:Performed By: #### MG, PHOS, CMP #### [facility] [address] [address] [address] Garfield NelsonGlobulin (S) [Mass/Vol]3.8 g/dLNormCherrington HospitalComment on above:Performed By: #### MG, PHOS, CMP #### [facility] [address] [address] [address] Garfield NelsonGlucose [Mass/Vol]101 mg/bZFcydnp52-318Uyf [facility] Comment on above:Performed By: #### MG, PHOS, CMP #### [facility] [address] [address] [address] Garfield NelsonPotassium [Moles/Vol]3.9 mmol/LNormal3.5-5.1The [facility] Comment on above:Performed By: #### MG, PHOS, CMP #### [facility] [address] [address] [address] Garfield NelsonProtein [Mass/Vol]7.7 g/dLNormal6.4-8.2The [facility] Comment on above:Performed By: #### MG, PHOS, CMP #### [facility] [address] [address] [address] Garfield NelsonSodium [Moles/Vol]139 mmol/CZlyfwz732-681Juo [facility] Comment on above:Performed By: #### MG, PHOS, CMP #### [facility] [address] [address] [address] Garfield NelsonUrea nitrogen [Mass/Vol]16.0 mg/dLNormal7.0-18.0The [facility] HospitalComment on above:Performed By: #### MG, PHOS, CMP #### [facility] [address] [address] [address] Garfield NelsonUrea nitrogen/Creatinine [Mass ratio]17.4 mg/mgNormalThe [facility] HospitalComment on above:Performed By: #### MG, PHOS, CMP #### [facility] [address] [address] [address] Garfield Davila RATE WESTERGRENon 27-11-0575BAP RATE58 mm/hrCritically high <=30[facility] on above:Performed By: #### CSUITE #### [facility] [address] [address] [address] Garfield Garcia RANDOM W/MICROSCOPICon 40-94-3832LQXIZSNTQZBO SEENNormalNONE SEENSumma Health [facility] on above:Performed By: #### VITAD #### [facility] [address] [place] [address] Dr. Garfield Ayala Ql (U)NegativeNormalNEGATIVEAkron Children'[facility] Comment on above:Performed By: #### VITAD #### [facility] [address] [address] [address] Garfield Morales SEENNormalNONE SEENSumma Health Wad[facility] - [facility] on above:Performed By: #### VITAD #### [facility] [address] [address] [address] Garfield Rodriguez (U)CLEARNormalCLEARAkron Children'S HospitalCommymichigan medical center clare on above: Performed By: #### VITAD #### [facility] [address] [address] [address] Garfield Blancas (U)LT. YELLOWNormalYELLOWSumma Health Wad[facility] on above:Performed By: #### VITAD #### [facility] [address] [address] [address] Garfield Cleveland LM Nom (Urine sed)NONE SEENNormalNONE SEENSumma Health Wad[facility] - [facility] on above:Performed By: #### VITAD #### [facility] [address] [address] [address] Merrill ChangEpithelial cells LM Ql (Urine sed)NONE SEENNormalNONE SEEN /RARE The [facility] HospitalCommymichigan medical center clare on above:Performed By: #### VITAD #### [facility] [address] [address] [address] Garfield NelsonGlucose Ql (U)NegativeNormalNEGATIVEAkron Children'S HospitalComment on above:Performed By: #### VITAD #### [facility] [address] [place] [address] Dr. Garfield NelsonHemoglobin Ql (U)NegativeNormalNEGATIVELicking Memorial Hospital on above:Performed By: #### VITAD #### [facility] [address] [place] [address] Dr. Garfield NelsonKetones Ql (U)NegativeNormalNEGATIVEAkron Children'S HospitalComment on above:Performed By: #### VITAD #### [facility] [address] [place] [address] Dr. Garfield NelsonLEUKOCYTESNegativeNormalNEGATIVEAkron Children'S HospitalComment on above:Performed By: #### VITAD #### [facility] [address] [place] [address] Dr. Garfield NelsonMUCOUSNONE SEENNormalNONE SEENAkron Children'S HospitalComment on above:Performed By: #### VITAD #### [facility] [address] [place] [address] Dr. Garfield NelsonNitrite Ql (U)NegativeNormalNEGATIVEAkron Children'S HospitalComment on above:Performed By: #### VITAD #### [facility] [address] [place] [address] Dr. Garfield NelsonpH (U)6.0 [pH]Normal5-9The [facility] Southment on above: Performed By: #### VITAD #### [facility] [address] [place] [address] Dr. Garfield NelsonOekahWDA8-8Cdrzxx8-9Yis [facility] HospitalComment on above:Performed By: #### VITAD #### [facility] [address] [place] [address] Dr. Garfield NelsonSPEC GRAVITY1.674Vfluqq5.005-<=1.025The [facility] HospitalComment on above:Performed By: #### VITAD #### [facility] [address] [address] [address] Garfield Garcia PROTEINNegativeNormalNEGATIVE/ TRACEThe [facility] Comment on above:Performed By: #### VITAD #### [facility] [address] [address] [address] Garfield NelsonUrobilinogen Qn (U)0.2 {Marquise'U}/dLNormal0.2 - 1.0The [facility] HospitalComment on above:Performed By: #### VITAD #### [facility] [address] [address] [address] Garfield NelsonWBCNONKamla SEENNormalNONE SEENThe [facility] HospitalComment on above: Performed By: #### VITAD #### [facility] [address] [place] [address] Dr. Garfield NelsonC3 and C4 COMPLEMENTon 85-85-7963Knvdadzsqc C3, Futep633 mg/dL Rheqzj68-019Sqp [facility] HospitalComment on above:Performed By: #### CSUITE #### [facility] [address] [place] [address] Dr. Garfield NelsonComplement C4, Serum18 mg/jZGbptzj64-88Nbv [facility] Comment on above:Performed By: #### CSUITE #### [facility] [address] [place] [address] Dr. Garfield DyePLEMENT TOTAL (CH50)on 07-52-6665Vutoxufcsg, Total (CH50)>60 Normal>41The [facility] HospitalComment on above:Result Comment: Age Male [...] values.Performed By: #### MG, PHOS, CMP #### [facility] [address] [place] [address] Dr. Garfield Viramontes AUTO DIFFon 87-55-2956CDRQ #0.1 103/ulNormal0.0-0.1The [facility] HospitalComment on above:Performed By: #### VITAD #### [facility] [address] [place] [address] Dr. Garfield NelsonBasophils/100 WBC (Bld)0.6 %Normal0.2-2.0The [facility] Comment on above:Performed By: #### VITAD #### [facility] [address] [place] [address] Dr. Garfield Michelle #0.1 103/ulNormal0.0-0.7The [facility] HospitalComment on above: Performed By: #### VITAD #### [facility] [address] [place] [address] Dr. Garfield Grimaldoosinophils/100 WBC (Bld)1.1 %Normal0.9-7.0The [facility] Comment on above:Performed By: #### VITAD #### [facility] [address] [place] [address] Dr. Garfield Grimaldorythrocyte distribution width (RBC) [Ratio]14.5 %Bsawwu92.0-15.0 The [facility] HospitalComment on above:Performed By: #### VITAD #### [facility] [address] [place] [address] Dr. Garfield NelsonHematocrit (Bld) [Volume fraction]40.6 %Qarnxw75.0-48.0The [facility] HospitalComment on above:Performed By: #### VITAD #### [facility] [address] [place] [address] Dr. Garfield NelsonHemoglobin (Bld) [Mass/Vol]12.8 g/zILgeqyr56.0-16.0The [facility] HospitalComment on above:Performed By: #### VITAD #### [facility] [address] [place] [address] Dr. Garfield Quiroz #0.02 10e3/ulNormal0.00-0.03The [facility] HospitalComment on above:Performed By: #### VITAD #### [facility] [address] [place] [address] Dr. Garfield Quiroz %0.2 %Normal0.0-0.5The [facility] HospitalComment on above: Performed By: #### VITAD #### [facility] [address] [place] [address] Dr. Garfield Huynh #1.7 103/ulNormal1.2-3.8The [facility] HospitalComment on above:Performed By: #### VITAD #### [facility] [address] [place] [address] Dr. Garfield Reddyhocytes/100 WBC (Bld)20.0 %Critically low20.5-60.0[facility] HospitalComment on above:Performed By: #### VITAD #### [facility] [address] [place] [address] Dr. Garfield Leon DIFF REQNONormalThe [facility] HospitalComment on above: Performed By: #### VITAD #### [facility] [address] [place] [address] Dr. Garfield Jean (RBC) [Entitic mass]28.4 knFlirvi58.7-34.0The [facility] HospitalComment on above:Performed By: #### VITAD #### [facility] [address] [place] [address] Dr. Garfield Fritz (RBC) [Mass/Vol]31.5 g/sRSddhvc94.9-35.2The [facility] HospitalComment on above:Performed By: #### VITAD #### [facility] [address] [place] [address] Dr. Garfield Holcomb (RBC) [Entitic vol]90.0 cZJzjrdx52.0-99.0The [facility] HospitalComment on above:Performed By: #### VITAD #### [facility] [address] [place] [address] Dr. Garfield Baker #0.9 103/ulCritically high0.3-0.8The [facility] Comment on above:Performed By: #### VITAD #### [facility] [address] [place] [address] Dr. Garfield Bajwaocytes/100 WBC (Bld)10.9 %Normal1.7-12.0The [facility] Comment on above:Performed By: #### VITAD #### [facility] [address] [place] [address] Dr. Garfield Roman #5.7 103/ulNormal1.4-6.5The [facility] HospitalComment on above:Performed By: #### VITAD #### [facility] [address] [place] [address] Dr. Garfield Acevesutrophils/100 WBC (Bld)67.2 %Nhonqt09.0-75.0The [facility] HospitalComment on above:Performed By: #### VITAD #### [facility] [address] [place] [address] Dr. Garfield Paezlet mean volume (Bld) [Entitic vol]12.1 fLNormal9.5-13.5The [facility] HospitalComment on above:Performed By: #### VITAD #### [facility] [address] [place] [address] Dr. Garfield AyonT249 103/ojIzadcw091-622Csw [facility] HospitalComment on above: Performed By: #### VITAD #### [facility] [address] [place] [address] Dr. Garfield NelsonRBC4.51 106/ulNormal4.20-5.40The [facility] HospitalComment on above:Performed By: #### VITAD #### [facility] [address] [place] [address] Dr. Garfield NelsonWBC8.5 103/ulNormal4.0-11.0The [facility] HospitalComment on above: Performed By: #### VITAD #### [facility] [address] [place] [address] Dr. Garfield Kang 66-18-6386Lwvkblupl [Mass/Vol]2.0 mg/dLNormal1.8-2.4 The [facility] HospitalComment on above:Performed By: #### CSUITE #### [facility] [address] [place] [address] Dr. Garfield NelsonPHOSPHORUSon 25-26-8343Kuoxafueu [Mass/Vol]3.6 mg/dLNormal2.6-4.7 The [facility] HospitalComment on above:Performed By: #### CSUITE #### [facility] [address] [place] [address] Dr. Garfield NelsonPROF 14(COMP METB)on 82-35-4526Flowokw [Mass/Vol]3.8 g/dLNormal 3.4-5.0The [facility] HospitalComment on above:Performed By: #### CSUITE #### [facility] [address] [place] [address] Dr. Garfield NelsonAlbumin/Globulin [Mass ratio]0.9 {ratio}NormalThe [facility] HospitalComment on above:Performed By: #### CSUITE #### [facility] [address] [place] [address] Dr. Garfield Larson [Catalytic activity/Vol]73 U/IEmwphn93-909Hgb [facility] HospitalComment on above:Performed By: #### CSUITE #### [facility] [address] [place] [address] Dr. Garfield Arrington [Catalytic activity/Vol]24 U/LFsujdz70-72Fsr [facility] HospitalComment on above:Performed By: #### CSUITE #### [facility] [address] [place] [address] Dr. Garfield Hardy gap [Moles/Vol]12.0 mmol/LNormalThe [facility] on above:Performed By: #### CSUITE #### [facility] [address] [place] [address] Dr. Garfield Melendez [Catalytic activity/Vol]22 U/KZuwyeb79-21Gni [facility] HospitalComment on above:Performed By: #### CSUITE #### [facility] [address] [address] [address] Garfield NelsonBilirubin [Mass/Vol]0.4 mg/dLNormal0.2-1.0[facility] Comment on above:Performed By: #### CSUITE #### [facility] [address] [address] [address] Garfield NelsonCalcium [Mass/Vol]8.9 mg/dLNormal8.5-10.1The [facility] Comment on above:Performed By: #### CSUITE #### [facility] [address] [place] [address] Dr. Garfield NelsonChloride [Moles/Vol]102 mmol/JDadihp21-956KnwAkron [facility] Hospital Comment on above:Performed By: #### CSUITE #### [facility] [address] [place] [address] Dr. Garfield NelsonCO2 [Moles/Vol]27.2 mmol/NDssqrf15.0-32.0The [facility] Comment on above:Performed By: #### CSUITE #### [facility] [address] [place] [address] Dr. Garfield NelsonCreatinine [Mass/Vol]0.86 mg/dLNormal0.55-1.02The [facility] HospitalComment on above:Performed By: #### CSUITE #### [facility] [address] [place] [address] Dr. Garfield GrimaldoGFR-AF SOUTH [place]>60Normal>=60The [facility] HospitalComment on above:Performed By: #### CSUITE #### [facility] [address] [place] [address] Dr. Garfield GrimaldoGFR-NON AF [place]>60Normal>=60[facility] on above:Performed By: #### CSUITE #### [facility] [address] [place] [address] Dr. Garfield NelsonGlobulin (S) [Mass/Vol]4.4 g/dLNormalThe Jose HospitalComment on above:Performed By: #### CSUITE #### [facility] [address] [address] [address] Garfield NelsonGlucose [Mass/Vol]108 mg/dLCritically dykq66-773Brb [facility] HospitalComment on above:Performed By: #### CSUITE #### [facility] [address] [place] [address] Dr. Garfield NelsonPotassium [Moles/Vol]4.2 mmol/LNormal3.5-5.1The [facility] Comment on above:Performed By: #### CSUITE #### [facility] [address] [place] [address] Dr. Garfield NelsonProtein [Mass/Vol]8.2 g/dLNormal6.4-8.2The [facility] Comment on above:Performed By: #### CSUITE #### [facility] [address] [place] [address] Dr. Garfield NelsonSodium [Moles/Vol]137 mmol/QDyenae078-050Mal [facility] Comment on above:Performed By: #### CSUITE #### [facility] [address] [place] [address] Dr. Garfield NelsonUrea nitrogen [Mass/Vol]15.0 mg/dLNormal7.0-18.0The [facility] HospitalComment on above:Performed By: #### CSUITE #### [facility] [address] [place] [address] Dr. Garfield Guerra nitrogen/Creatinine [Mass ratio]17.4 mg/mgNoFulton County Health CenterComment on above:Performed By: #### CSUITE #### [facility] [address] [place] [address] Dr. Garfield Davila RATE WESTERGRENon 50-13-3115HZJ RATE11 mm/hrNormal<=30The [facility] HospitalComment on above:Performed By: #### CSUITE #### [facility] [address] [place] [address] Dr. Garfield Garcia RANDOM W/MICROSCOPICon 07-11-6102HSHVDVSHMWRN SEENNormalNONE SEENAkron Children'S HospitalComment on above:Performed By: #### UAMIC #### [facility] [address] [address] [address] Garfield NelsonBilirubin Ql (U)NegativeNormalNEGATIVEAkron Children'S Hospital Comment on above:Performed By: #### UAMIC #### [facility] [address] [address] [address] Garfield NelsonCASTNONE SEENNormalNONE SEENAkron Children'S HospitalComment on above:Performed By: #### UAMIC #### [facility] [address] [address] [address] Garfield NelsonClarity (U)CLEARNormalCLEARAkron Children'S HospitalComment on above: Performed By: #### UAMIC #### [facility] [address] [address] [address] Garfield Ricelor (U)LT. YELLOWNormalYWilson Memorial HospitalComment on above:Performed By: #### UAMIC #### [facility] [address] [address] [address] Garfield NelsonCrystals LM Nom (Urine sed)NONE SEENNormalNONE SEENAkron Children'S HospitalComment on above:Performed By: #### UAMIC #### [facility] [address] [address] [address] Merrill ChangEpithelial cells LM Ql (Urine sed)FEWAbnormalNONE SEEN /RAREThe [facility] HospitalComment on above:Performed By: #### UAMIC #### [facility] [address] [address] [address] Garfield NelsonGlucose Ql (U)NegativeNormalNEGATIVEAkron Children'S HospitalComment on above:Performed By: #### UAMIC #### [facility] [address] [address] [address] Garfield NelsonHemoglobin Ql (U)NegativeNormalNEGLakeHealth TriPoint [facility] Comment on above:Performed By: #### UAMIC #### [facility] [address] [address] [address] Garfield Levin Ql (U)NegativeNormalNEGATIVEThe [facility] HospitalComment on above:Performed By: #### UAMIC #### [facility] [address] [address] [address] Garfield NelsonLEUKOCYTESNegativeNormalNEGATIVEThe [facility] HospitalComment on above:Performed By: #### UAMIC #### [facility] [address] [address] [address] Garfield TaylorCOUSNONKamla SEENNormalNONE SEENThe [facility] HospitalComment on above:Performed By: #### UAMIC #### [facility] [address] [place] [address] Dr. Garfield Fitzpatricktrgisele Ql (U)NegativeNormalNEGATIVEThe [facility] HospitalComment on above:Performed By: #### UAMIC #### [facility] [address] [place] [address] Dr. Garfield NelsonpH (U)6.0 [pH]Normal5-9The [facility] HospitalComment on above: Performed By: #### UAMIC #### [facility] [address] [place] [address] Dr. Garfield NelsonRBCNHELGA SEENAbnormal0-2The [facility] HospitalComment on above: Performed By: #### UAMIC #### [facility] [address] [address] [address] Garfield NelsonSPEC GRAVITY1.317Uuyszg7.005-<=1.025The [facility] HospitalComment on above:Performed By: #### UAMIC #### [facility] [address] [address] [address] Garfield Garcia PROTEINNegativeNormalNEGATIVE/ TRACEThe [facility] on above:Performed By: #### UAMIC #### [facility] [address] [place] [address] Dr. Garfield Ordazbilinogen Qn (U)0.2 {Marquise'U}/dLNormal0.2 - 1.0The Jose HospitalComment on above:Performed By: #### UAMIC #### [facility] [address] [address] [address] Garfield NelsonWBCNONKamla SEENNormalNONE SEENThe [facility] HospitalComment on above: Performed By: #### UAMIC #### [facility] [address] [address] [address] Garfield Nelson Vital Signs Date TimeVital SignValuePerforming KtwivvwobXocnpwjf17-00-1759 11:16-0500Body mass index (BMI) [Ratio]19.53 kg/m2Stephanie ST[address] Work Phone: [phone] [place], [place] [address]Pyajtsrfnc76-48-8417 11:16-0500Body .44 kgAmy Brianna PA Work Phone: [phone] [place], [place] [address]Vkykxajzik62-95-8152 11:16-0500Diastolic blood trowyjlz08 mm[Hg]Stephanie ST[address] Work Phone: [phone] [place] [address]-11-2025 11:16-0500Systolic blood mm[Hg]Stephanie Reed PA Work Phone: [phone] [place], [place] [address]Oxapqhyvci38-39-8994 13:54-0500Body .48 cmBenjamin Ball DO Work Phone: [phone] 13:54-0500 Body mass index (BMI) [Ratio]19.4 kg/t7Keougdsj Ball DO Work Phone: [phone] [place], [place] [address]11-10-2025 13:54-0500 Body .19 kgBenjamin Ball DO Work Phone: [phone] [place], [place] [address]11-10-2025 13:54-0500 Diastolic blood qrofxeaj41 mm[Hg]Rich Ball DO Work Phone: [phone] [place], [place] [address]11-10-2025 13:54-0500 Heart rate91 /minBenjamin Ball DO Work Phone: [phone] 13:54-0500 Respiratory rate12 /minBenjamin Ball DO Work Phone: [facility]11-10-2025 13:54-0500 Systolic blood kkjzfniy163 mm[Hg]Rich Ball DO Work Phone: [facility]11-04-2024 11:13-0500 Body aohbdz160.5 cmAsabino Hazeley PA Work Phone: [facility] HospitalCvjcnjmrws72-18-4035 11:13-0500Body mass index (BMI) [Ratio]19.02 kg/m2Amy Brianna PA Work Phone: [facility] HospitalKocqboytkw74-70-6306 11:13-0500Body sgwyma25.17 kgAmy Chamberino PA Work Phone: [facility] HospitalLslqmaswin61-77-2741 11:13-0500Diastolic blood lqqoqien08 mm[Hg]Stephanie Hazeley PA Work Phone: [facility] HospitalOaoijypdyp59-79-4248 11:13-0500Systolic blood mm[Hg]Stephanie Hazeley PA Work Phone: [facility] HospitalFpalfvurnb26-41-9418 11:00-0400Body uydofe829.48 cmBenjamin Ball Other [employer] Other 10-19-2023 11:00-0400Body mass index (BMI) [Ratio] 19.02 kg/d5Vytiryas Ball Other [employer] Other 10-19-2023 11:00-0400Body fhzxxi94.17 kgBenjamin Ball Other [facility] [employer] Other 10-19-2023 11:00-0400Diastolic blood hmhnedfz60 mm[Hg] Rich Ball Other [facility] [employer] Other 10-19-2023 11:00-0400Respiratory rate12 /minBenjamin Ball Other no [employer] Other 052822-54-0919 11:00-0400Systolic blood vgtowzne600 mm[Hg] Rich Segura Other [facility] [employer] Other Encounters Encounter DateEncounter TypeCare ProviderFacilityStart: 01-10-2025 End: 78-93-5703Ybvcsg flowsPorsha STREET Work Phone: no Leonard OBGYNStart: 01-10-2025 End: 77-71-2569Sghoil flowsheetStephanie STREET Work Phone: noms Leonard OBGYNStart: 01-10-2025 End: 98-30-2686Qlsmfer preventive medicine new patient [address] Work Phone: noms Jose OBGYNComment on above:Well woman exam with routine gynecological exam; Breast cancer screening by mammogram; Postmenopausal stateStart: 01-10-2025 End: 67-36-6430Mqyhxix encounter procedureStephanie STREET Work Phone: [facility] Work Phone: Start: 01-10-2025 End: 85-82-1562lxfpgoyomcVZW RAMEYNot AvailableStart: 01-09-2025 End: 67-48-5615mwuulzaafpHfflvsri Ball DO Work Phone: -[facility] ClinicStart: 01-09-2025 End: 59-50-2718Wnenzac encounter procedureBenjalotus Segura DO-[facility] Work Phone: Start: 01-09-2025 End: 11-10-8693Lqtbikf encounter statusBenolu Segura [facility] Centertart: 12-19-2024 End: 19-23-2255Shlvckwqp Result EncounterStephanie STREET Work Phone: noms External Department UnsolicitedStart: 12-19-2024 End: 04-36-5446Fglsercka Result EncounterStephanie STREET Work Phone: noms External Department UnsolicitedStart: 01-04-2024 End: 95-63-3401Uqnpkc flowsheetStephanie STREET Work Phone: noMS BCP OBStart: 01-04-2024 End: 34-20-9976Pcogqp flowsheetStephanie STREET Work Phone: noms BCP OBStart: 01-04-2024 End: 73-84-9616Olvrhwpxx Result EncounterAmy Brianna STREET Work Phone: noms External Department UnsolicitedStart: 01-04-2024 End: 50-62-9625Drtuthq encounter procedureStephanie STREET Work Phone: noms HealthcareStart: 01-04-2024 End: 43-67-1405Mpvtuopm preventive med est patient 40-[address]yrs[address] Work Phone: noms [facility] OBComment on above:Postmenopausal state; Well woman exam with routine gynecological examStart: 12-18-2023 End: 08-88-4877Pdtdyjsvu Result EncounterAmy Brianna STREET Work Phone: noms External Department UnsolicitedStart: 12-18-2023 End: 64-20-9527Lfmewemnn Result EncounterAmy Brianna STREET Work Phone: noms External Department UnsolicitedStart: 12-17-2023 Patient encounter statusBejudahlotus Segura DO Work Phone: [facility] Centertart: 12-18-2022 End: 86-16-3818tkztkisstuRurxzpar Ball Other [employer] Other Start: 01-47-3720Iizbntkkx for general adult medical examination without abnormal findingsBenolu BallIRAMG Ball Medical ClinicStart: 31-07-2211Wbrjksre preventive med est patient 40-64yrsBenolu BallIRAMG [facility] Medical ClinicStart: 12-05-2022 End: 49-01-9961nrywlahqydBdnvcmiq Ball Other [employer] Other Start: 85-22-3685Wgrzfop evaluation of patient and reportRich Segura Medical ClinicStart: 05-12-2022 End: 12-14-4340fdasmksunfTA NIKI KIKIROWFacility:K8Etaok: 04-11-2022 End: 20-47-6707vfvyyulepnJwlxspvp Ball Other [employer] Other Start: 80-12-1124Ibsxtq outpatient visit 15 minutes Rich Segura Medical ClinicStart: 03-11-2022 End: 35-16-6467ungflxfsaeKhxxbdfb Ball Other [employer] Other Start: 84-14-7873Wthmmc outpatient visit 15 minutes Rich Segura Medical ClinicStart: 02-11-2022 End: 04-45-1827wgkuebxdwlOM DOCTOR MISCFacility:F2Ngurq: 01-02-2022 End: 68-16-6169wxlexhssvyUuhp L ObermeyerFacility:[facility] Centertart: 01-02-2022 End: 21-24-0606wwqlbzuojfCW Rich Segura Work Phone: [facility] Work Phone: Start: 01-02-2022 End: 71-08-5670Hbjxyyo encounter procedureDO Rich Segura Work Phone: [facility] Start: 16-70-5444xpbtxunzgnEzolmxmt:9090Start: 02-29-9670Gsjyidule for general adult medical examination without abnormal findingsDR RICH SEGURAParkview Healthtart: 12-17-2021 End: 34-93-8629dcpnwrpbmzFC RICH SEGURAFacility:E6Xlnrf: 12-17-2021 End: 54-98-0792Wenqkfyfs for general adult medical examination without abnormal findingsDR RICH SEGURAFacility:J9Dvkbt: 12-16-2021 End: 42-81-4577arxqasdsbhXQ JUDITH MARTINEZ .Facility:V3Iqemc: 12-16-2021 Gynecological examination normalBenolu Segura Other [employer] Other Start: 09-41-0502Qzvst health examinationBenolu Segura Other [facility] [employer] Other Start: 11-14-2021 End: 82-78-2013khhdkydllxBB JUDITH MARTINEZ .Facility:F7Wsofq: 11-12-2021 End: 31-03-1787xuoumsptpfOR DOCTOR MISCFacility:Z8Dxsws: 08-07-2021 End: 07-42-1864skeixldkxbVF DOCTOR MISCFacility:H1 Procedures DateProcedureProcedure DetailPerforming ClinicianStart: 70-82-2276QD TOMOSYNTHESIS SCREENING [address] Work Phone: Start: 19-81-0518XqkfwzzfnueOcm Ramey PA Work Phone: Start: 27-65-3048QUR,APTIMA HPV,AGE GDLNStephanie STREET Work Phone: Start: 86-49-4917Cmowfblpswx observation [Identifier] in Cervix by Cyto stainStephanie STREET Work Phone: Start: 22-26-4145QC TOMOSYNTHESIS SCREENING [address] Work Phone: Start: 77-92-3897CzgyspburzwOvh Ramey PA Work Phone: Start: 44-25-0290Tyyfgbp examination of patient Rich Segura Other Depression screeningBenolu Segura Other Screening for malignant neoplasm of breastGhanshyamnolu Segura Other End: 18-28-1557Jbiiorkjr for malignant neoplasm of breastGhanshyamnolu Segura Other Screening for malignant neoplasm of breastGhanshyamnolu Segura Other Screening for malignant neoplasm of colonBenolu Segura Other End: 40-76-7252Xmtvojqrj for osteoporosisBenjamin Jose Other Plan of Treatment DateCare ActivityDetailAuthorStart: 71-68-0748Crtnmhdjr for malignant neoplasm of cervixNOMS HealthcareStart: 01-17-2026 End: 66-57-6475Oplwpyp encounter haqpkuzho23/18/2026 11:00 AM EST Procedure Visit NOMPurvi FARRELL [address] [place], [id number] Stephanie Reed PA [address] [place] [address] SULEMA Garcia OBGYNStart: 12-19-2025 Screening for malignant neoplasm of breastMammogramNOMS HealthcareStart: 02-21-1623LXCUZ-19 Vaccine ( season)COVID-19 Vaccine ( season)NOM HealthcareStart: 01-10-2025 End: 25-11-1922VRC Skeletal system Views for bone densityDEXA bone density Imaging Routine Postmenopausal state Expected: 01/10/2025 (Approximate), Expires:01/10/2026[facility] Work Phone: comment on above:Expected: 01/10/2025 (Approximate), Expires: 01/10/2026Start: 01-10-2025 End: 47-19-6613Jbwzwfj encounter procedureNOMS BCP OBComment on above:Arrived Start: 22-16-4578Jxpbufjrw for malignant neoplasm of breastMammogramNOMS HealthcareStart: 54-99-0332RDSTG-19 Vaccine ( season)COVID-19 Vaccine ( season)[facility] HealthcareStart: 47-89-1780Xqslospjh vaccination Influenza Vaccine (#1)[facility] HealthcareStart: 01-04-2024 End: 93-34-1908Exhtssg encounter guxnqzxfy83/04/2024 11:00 AM EST Office Visit [facility] OB [address] [place] [phone] Stephanie Reed PA [address] [place] [address] [facility] OBComment on above:ArrivedStart: 11-01-2023 Influenza vaccinationInfluenza Vaccine (#1)[facility] HealthcareStart: 12-01-1995 Screening for malignant neoplasm of cervixCASTLEVIEW HOSPITAL HealthcareStart: 1986 Screening for malignant neoplasm of cervixPap SmearCASTLEVIEW HOSPITAL HealthcareStart: 12-22-3264Svnnrztij B Vaccines (1 of 3 - 19+ 3-dose series)Hepatitis B Vaccines (1 of 3 - 19+ 3-dose series)[facility] HospitalStart: 12-10-0524BShJ/Tdap/Td Vaccines (1 - Tdap)DTaP/Tdap/Td Vaccines (1 - Tdap)[facility] HospitalStart: 02-98-6689RFH Vaccines (1 of 1 - Standard series)MMR Vaccines (1 of 1 - Standard series)[facility] HospitalStart: 45-78-6062Vekanwstm for malignant neoplasm of colonCASTLEVIEW HOSPITAL HealthcareTHIN PREP TIS PAP AND HR HPV DNATHIN PREP TIS PAP AND HR HPV DNA Pathology and Cytology Routine Well woman exam with routine gynecological exam Ordered: 01/04/2024[facility] Work Phone: comment on above:Ordered: 01/04/2024THIN PREP TIS PAP AND HR HPV DNATHIN PREP TIS PAP AND HR HPV DNA Pathology and Cytology Routine Well woman exam with routine gynecological exam Ordered: 01/10/2025[facility] HealthcareComment on above:Ordered: 01/10/2025[facility] Immunizations Immunization DateImmunizationNotesCare OcbxfckyTwtchjft56-51-3204qaepoqcnz virus vaccine, unspecified formulationStephanie STREET Work Phone: [facility] HospitalEmxuwjldps46-85-2511hzfjxbwot, injectable, quadrivalent, preservative freeBenjamin Ball Other [facility]10-14-2022influenza virus vaccine, split virus (incl. purified surface antigen)Rich Segura Other [employer] Other [id number] virus vaccine, unspecified formulationBenjamin Ball DO Work Phone: [facility]10-13-2021COVID-19 mRNA, Comirnaty (Pfizer)DO Rich Segura Work Phone: [facility]10-06-2021influenza virus vaccine, split virus (incl. purified surface antigen)Rich Segura Other [employer] Other [id number] virus vaccine, unspecified formulationBenjamin Ball DO Work Phone: [facility]03-05-2021COVID-19 mRNA, Comirnaty (Pfizer)DO Rich Segura Work Phone: [facility]02-12-2021COVID-19 mRNA, Comirnaty (Pfizer)DO Rich Segura Work Phone: [phone]enza virus vaccine, split virus (incl. purified surface antigen)Rich Segura Other [employer] Other [id number] virus vaccine, unspecified formulationBenjamin Ball DO Work Phone: [facility]11-06-2019 pneumococcal polysaccharide vaccine, 23 valentBenjamin Ball Other [facility]10-04-2019influenza virus vaccine, split virus (incl. purified surface antigen)Rich Seguar Other [employer] Other [id number] virus vaccine, unspecified formulationBenjamin Ball DO Work Phone: [facility]10-16-2018influenza virus vaccine, split virus (incl. purified surface antigen)Rich Jose Other [employer] Other [id number] virus vaccine, unspecified formulationBegeorgeolu Segura DO Work Phone: [facility]10-11-2017tetanus and diphtheria toxoids, adsorbed, preservative free, for adult use (5 Lf of tetanus toxoid and 2 Lf of diphtheria toxoid)Rich Segura Other [facility]10-12-2016tetanus and diphtheria toxoids, adsorbed, preservative free, for adult use (5 Lf of tetanus toxoid and 2 Lf of diphtheria toxoid)Rcih Segura Other [facility]09-15-2016 pneumococcal conjugate vaccine, 13 valentBebeto Segura Other [facility]10-20-2015tetanus and diphtheria toxoids, adsorbed, preservative free, for adult use (5 Lf of tetanus toxoid and 2 Lf of diphtheria toxoid)Rich Segura Other [facility]10-15-2013tetanus and diphtheria toxoids, adsorbed, preservative free, for adult use (5 Lf of tetanus toxoid and 2 Lf of diphtheria toxoid)Rich Segura Other [facility] Payers DatePayer CategoryPayerPolicy [id number] Health InsuranceGENERIC COMMERCIAL [id number] 2.0.1.153729.3.57[id number] 2.160.1.154871.3.57[id number] 2.0.1.046161.3.57[id number] 2.0.1.894989.3.57[id number] 2.0.1.791482.3.57[id number] 2.0.1.257445.3.57[id number] 2.0.1.935152.3.57[id number] 2.0.1.366098.3.57[id number] 2.0.1.319269.3.579.[id number] 2..1.944002.19 [id number] 2..1.006006.3.579.2.531 Social History DateTypeDetailFacilityStart: 01-28-2021 End: 52-58-1657Gtcsxrz smoking status NHISNever smoked tobacco (finding) [facility] Centertart: 16-20-7298Jzt Assigned At [facility] Assigned At [facility] [employer] Other Tobacco smoking status NHISTobacco smoking consumption unknownCASTLEVIEW HOS[facility]ITAL HealthcareStart: 44-03-6888Zfp assigned at birthNot on fileCASTLEVIEW HOSPITAL HealthcareStart: 82-14-4687KsbHrlwtsIQAF HealthcareSexFemale (finding)[facility] Clinical Notes 03-11-2022 to 01-10-2025 Note Date & ZcssHeysXnpalzuq91-06-9883 History of Present illness Narrative* JAD Granados [...] nursing note reviewed. Exam conducted with a grade foreman present. Vitals: Estimated body mass index is [...] them. Patient can also view results via [employer]. I reinforced importance of condom use for [...] behalf of: JAD Granados documented in this encounterChildren's Mercy HospitalHlhhnpcdpu63-07-0138 History of Present illness Narrative* JAD Granados [...] nursing note reviewed. Exam conducted with a grade foreman present. Vitals: There is no height or [...] behalf of: JAD Granados documented in this encounterChildren's Mercy HospitalPalgnvyufu63-26-2233 Evaluation note* Encounter Date Diagnosis Assessment Notes [...] patient on monthly SBE and yearly mammograms. [employer] Other 02-10-2023 Evaluation note* Encounter Date Diagnosis Assessment Notes Treatment Notes Treatment Clinical Notes Apr, Acute non-recurrent maxillary si nusitis (ICD-10 - J01.00) Instructed to use Robitussin or Mucinex for cough, saline or Flonase NS for congestion, Tylenol forpain and fever. Apr,Immunosuppressed status (ICD-10 - D84.9)Monitor for persistent high temperature, spread of symptoms to lungs, SOB or CP. [employer] Other 01-10-2023 Evaluation note* Encounter Date Diagnosis [...] treatment, empiric treatment of any infection necessary [employer] Other Evaluation noteNo assessment information available [facility] Work Phone: Evaluation noteNo InformationNort [employer] Other Evaluation note* Diagnosis Postmenopausal state Asymptomatic postmenopausal status (age-related) (natural) Well woman exam with routine gynecological exam Routine gynecological examination documented in this encounter [facility] HealthcareEvaluation note* Diagnosis Onset Date Resolution Status Admit Date GERD (gastroesophageal reflux disease) acuteNov2024 1:49pmOsteoporosisacuteNovember 2024 1:49pm Raynauds phenomenonacuteNov2024 1:49pmScreening mammogram for breast canceracuteJanuary 09, 2025 1:49pmSystemic sclerosisacuteNov2024 1:49pmWellness examinationacuteNov2024 1:49pm [facility] Work Phone: Evaluation note* Diagnosis Well woman [...] current pathological fractureSurgical HistoryHYSTERECTOMYHospitalization Historysee surgical history [employer] Other Reason for referral (narrative)No reason for referral information availableFostoria City Hospital Work Phone: Chief Complaint and Reason for [...] DateEnd Date Rich Segura MD [address] [place] [phone] PCP - [facility] Centernal Inwikulg30/30/23Team MemberRelationshipSpecialtyStart Date End Date Rich Segura MD [address] [place] [address] PCP - GeneralPhoenix [facility] Medical Centernal Xzjafsco82/30/23Team MemberRelationshipSpecialtyStart Date End Date Rich Segura MD [address] [place] [address] PCP - GeneralPhoenix Indian Medical Centernal Wsergjqp06/30/23Team MemberRelationshipSpecialtyStart Date End Date Rich Segura DO PCP - GeneralInternal Idfgnlhv72/30/23 Team Status: Active Member Role/Relationship Status Dates Rich Segura DO Primary Care Provider Active Team Status: Inactive Member Role/Relationship Status Dates Rich Segura DO Primary Care Provider Active Start: January 09, 2025 End: January 09enolu Segura DOAttending ProviderActiveStart: January 09, 2025 End: January 09, 2025Team MemberRelationshipSpecialtyStart DateEnd Date Rich Segura DO PCP - GeneralInternal Nnlczbgt96/30/23Team MemberRelationshipSpecialtyStart Date End Date Rich Segura DO PCP - GeneralInternal Vfkyzcto34/30/23 Goals (unrecognized section and content) Goals may be documented in a n alternate sectionNo InformationNo InformationNo InformationNo InformationGoals may be documented in an alternate section INFORMATION SOURCE (unrecogn ized section and content) DATE CREATED AUTHOR 04/05/2022 [facility] DATE CREATED AUTHOR AUTHOR'S ORGANIZ ATION 04/05/2022 [facility] DATE CREATED AUTHOR AUTHOR'S ORGANIZ ATION 05/19/2022 [facility] DATE CREATED AUTHOR AUTHOR'S ORGANIZ ATION 01/11/2025 [facility] EPIC REASON FOR VISIT (unrecogniz [...] BE BASED ON THE PRIMARY CLINICAL RECORDS. [facility] [employer] provides no warranty or guarantee of the accuracy or completeness of information in this document.
[2025-02-01 11:35] LABS: Glucose Urine UA NEGATIVE (NEGATIVE)
[2025-02-01 11:36] LABS: Hematocrit 43.1 % (36.0-48.0); Hemoglobin 13.5 g/dL (12.0-16.0); Immature Granulocytes Abs Auto 0.03 10^3/uL (0.00-0.03); Immature Granulocytes Pct Auto 0.4 % (0.0-0.5); Lymphocytes Absolute Auto 1.9 10^3/uL (1.2-3.8); Mean Corpuscular HGB Conc 31.3 g/dL (29.9-35.2); Mean Corpuscular Hemoglobin 28.5 pg (26.7-34.0); Mean Corpuscular Volume 90.9 fL (81.0-99.0); Platelet Count 263 10^3/uL (150-450); Red Blood Count 4.74 10^6/uL (4.20-5.40); White Blood Count 8.3 10^3/uL (4.0-11.0)
[2025-02-01 11:59] LABS: Alanine Aminotransferase 22 U/L (14-59); Albumin Globulin Ratio 1.0; Albumin Level 4.0 g/dL (3.4-5.0); Alkaline Phosphatase 64 U/L (46-116); Anion Gap 9.8; Aspartate Amino Transferase 19 U/L (15-37); Blood Urea Nitrogen 16.0 mg/dL (7.0-18.0); Calcium 8.9 mg/dL (8.5-10.1); Carbon Dioxide 28.5 mmol/L (21.0-32.0); Chloride 105 mmol/L (98-107); Estimated GFR (African America >60 (>=60 mL/min/1.73m^2); Estimated GFR (Non-African Ame >60 (>=60 mL/min/1.73m^2); Globulin 4.0 g/dL; Glucose 80 mg/dL (74-106); Magnesium 2.1 mg/dL (1.8-2.4); Potassium 4.3 mmol/L (3.5-5.1); Sodium 139 mmol/L (136-145); Total Protein 8.0 g/dL (6.4-8.2)
[2025-02-01 12:58] LABS: Cast Seen? NONE SEEN #/LPF (NONE SEEN); Crystals Seen? None Seen #/HPF (None Seen)
== END 2025-02-01 11:22 | disposition home or self-care (01) ==
LOC: LAB 11:21
PROVIDERS: Visit Provider Registered Nurse
DX: N34.0 Urethral abscess (principal); I73.00 Raynaud's syndrome without gangrene; M81.0 Age-related osteoporosis without current pathological fracture; Z79.899 Other long term (current) drug therapy
CPT/HCPCS: 36415; 80053; 81001; 83735; 84100; 85025; 85652; 86160; 86162